=== PATIENT | female | born 1940 | race Caucasian/White ===

== ENCOUNTER 2023-05-27 12:47 | Outpatient (OUT) | payer MEDICARE, SELFPAY ==
[2023-05-27 13:39] LABS: Bilirubin Urine NEGATIVE (NEGATIVE); Blood Urine NEGATIVE (NEGATIVE); Clarity Urine CLEAR (CLEAR); Color Urine DK. YELLOW (YELLOW); Glucose Urine UA NEGATIVE (NEGATIVE); Ketones Urine NEGATIVE (NEGATIVE); Leukocyte Esterase Urine NEGATIVE (NEGATIVE); Nitrite Urine NEGATIVE (NEGATIVE); Protein Urine NEGATIVE (NEG/TRACE); Urobilinogen Urine 0.2 EU/dL (0.2-1.0)
[2023-05-27 13:40] LABS: Urine Microscopic Indicated NO
== END 2023-05-27 12:48 | disposition home or self-care (01) ==
LOC: LAB 12:49
PROVIDERS: PCP Internal Medicine; Visit Provider Internal Medicine
DX: R30.0 Dysuria (principal)
CPT/HCPCS: 81003

== ENCOUNTER 2023-06-14 01:24 | Emergency (ER) | payer MEDICARE, SELFPAY ==
[2023-06-14] VITALS (11 sets, daily range): BP systolic 136–180; BP diastolic 60–80; PULSE 52–61; RESP 13–19; TEMP 36.4; O2SAT 97–99; BMI 17.9
--- NOTE | 2023-06-14 01:39 | XR_ITS ---
The [place] [id number] Patient Name: MAYRA VICENTE MRN: [id number] date: 1940 Sex: F Assigned Patient Location: ER Current Patient Location: ED.MAIN Accession/Order Number: [id number] Exam Date: 06/14/2023 02:00 Report Date: 06/14/2023 02:33 At the request of: PRIMITIVO HOPKINS Procedure: XR chest 1V XR chest 1V 06/14/2023 2:00 AM EDT CLINICAL INDICATION: Chest pain COMPARISON: 01/19/2023 TECHNIQUE: Portable upright AP view of the chest. FINDINGS: There are no tubes or implants noted. The cardiomediastinal silhouette and pulmonary vasculature are within normal limits. No focal parenchymal opacities. No pneumothorax or pleural effusion. No displaced rib fractures. Osseous structures demonstrate degenerative changes. Soft tissues are grossly normal. XR/XR chest 1V IMPRESSION: No acute cardiopulmonary abnormality. Electronically authenticated by: ERIN VENTURA Date: 06/14/2023 02:33
--- NOTE | 2023-06-14 01:39 | ECG_ITS ---
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
--- NOTE | 2023-06-14 01:40 | ED_ITS ---
HPI - General Adult General Chief complaint: Chest Pain Stated complaint: hypertension Time Seen by Provider: 06/14/23 01:27 Source: patient Mode of arrival: Wheelchair History of Present Illness HPI narrative: Patient had elevated BP at home - 179/79 She presents complaining of pain across the anterior chest, diffuse weakness and pain to the top of her head that all began today. No recent injury or illness. No cough or cold symptoms. No shortness of breath No GI or symptoms. She said that she had a normal EGD in February and a normal heart cath in January with Dr Rosas She took Tylenol tonight around 930pm Related Data Allergies Allergy/AdvReac Type Severity Reaction Status Date / Time codeine Allergy Unknown Verified 06/14/23 01:36 PFSH [facility] Social History Smoking status: Never smoker Exam Narrative Exam Narrative: Nurses notes and vital signs reviewed and patient is not hypoxic. afebrile General: Well-appearing and in no apparent distress. Skin: Warm, dry, no pallor noted. No rash. Head: Normocephalic, atraumatic. Neck: Supple, non-tender. Eye: Pupils are equal, round and EOMI. No scleral icterus. Ears, Nose, Mouth, and Throat: TM are clear, no nasal mucosal hypertrophy. Oral mucosa is moist, no posterior oropharynx erythema, uvula is mid-line Cardiovascular: Regular Rate and Rhythm without murmur, gallop or rub. Respiratory: No accessory muscle use or respiratory distress. Lungs are clear to auscultation, no wheezing, rales or rhonchi Chest Wall: mild anterior chest wall tenderness Back: No midline thoracic or lumbar vertebral tenderness. No CVA tenderness Musculoskeletal: normal ROM, no calf or popliteal tenderness, no lower extremity edema/swelling GI: Abdomen is soft, non-distended. Normal bowel sounds. No masses appreciated. No tenderness to palpation. No rebound, guarding, or rigidity noted. Neurological: A&O x4. No cranial nerve dysfunction observed. No truncal ataxia. Moves all extremities. Sensation intact. Psychiatric: Cooperative and interactive. Normal mood and affect. Constitutional Vital Signs, click to edit/add: Last Vital Signs Temp 97.6 F 06/14/23 01:29 Pulse 58 L 06/14/23 01:29 Resp 16 06/14/23 01:29 BP 146/68 H 06/14/23 02:16 Pulse Ox 99 06/14/23 01:29 O2 Del Method Room Air 06/14/23 01:29 Course Vital Signs Vital signs: Vital Signs Temperature 97.6 F 06/14/23 01:29 Pulse Rate 58 L 06/14/23 01:29 Respiratory Rate 16 06/14/23 01:29 Blood Pressure 180/80 H 06/14/23 01:29 Pulse Oximetry 99 06/14/23 01:29 Oxygen Delivery Method Room Air 06/14/23 01:29 Temperature 97.6 F 06/14/23 01:29 Pulse Rate 58 L 06/14/23 01:29 Respiratory Rate 16 06/14/23 01:29 Blood Pressure 146/68 H 06/14/23 02:16 Pulse Oximetry 99 06/14/23 01:29 Oxygen Delivery Method Room Air 06/14/23 01:29 Medical Decision Making MDM Narrative Medical decision making narrative: Patient was placed on performance improvement analyst and EKG obtained. Blood drawn and sent for evaluation. chest x-ray was obtained. I ordered the patient to receive IV Vasotec but on recheck the patient's blood pressure had normalized, prior to the administration of the medication and therefore it was held. Testing in the emergency Department which included EKG,blood testing and chest x-ray did not reveal any acute abnormalities that justified admission. patient's symptoms had improved by the time I came back to recheck on her at 2:30 AM. She was discharged home with recommendation to return to the emergency Department if she has any new or worsening symptoms. She is instructed to take her medications as prescribed, including Tylenol for any headache. Lab Data Labs: Lab Results 06/14/23 Range/Units 01:45 WBC 5.9 (4.0-11.0) 10^3/uL RBC 4.86 (4.20-5.40) 10^6/uL Hgb 14.1 (12.0-16.0) g/dL Hct 42.0 (36.0-48.0) % MCV 86.4 (81.0-99.0) fL MCH 29.0 (26.7-34.0) pg MCHC 33.6 (29.9-35.2) g/dL RDW 12.8 (11.0-15.0) % Plt Count 182 (150-450) 10^3/uL MPV 9.0 L (9.5-13.5) fL Neut % (Auto) 43.8 (43.0-75.0) % Lymph % (Auto) 42.8 (20.5-60.0) % [place] % (Auto) 8.4 (1.7-12.0) % Eos % (Auto) 4.0 (0.9-7.0) % Baso % (Auto) 0.8 (0.2-2.0) % Neut # (Auto) 2.6 (1.4-6.5) 10^3/uL Lymph # (Auto) 2.5 (1.2-3.8) 10^3/uL [place] # (Auto) 0.5 (0.3-0.8) 10^3/uL Eos # (Auto) 0.2 (0.0-0.7) 10^3/uL Baso # (Auto) 0.1 (0.0-0.1) 10^3/uL Abs Immat Gran (auto) 0.01 (0.00-0.03) 10^3/uL Imm/Tot Granulo (auto) 0.2 (0.0-0.5) % Sodium 131 L (136-145) mmol/L Potassium 3.9 (3.5-5.1) mmol/L Chloride 97 L (98-107) mmol/L Carbon Dioxide 33.6 H (21.0-32.0) mmol/L Anion Gap 4.3 BUN 12.0 (7.0-18.0) mg/dL Creatinine 0.80 (0.55-1.02) mg/dL Est GFR ( Amer) >60 (>=60) Est GFR (Non-Af Amer) >60 (>=60) BUN/Creatinine Ratio 15.0 Glucose 111 H (74-106) mg/dL Calcium 9.9 (8.5-10.1) mg/dL Troponin I High Sens 4.4 (4.0-51.3) pg/mL NT-Pro-B Natriuret Pep 331.0 (<=1800.0) pg/mL ECG Data Interpretation: EKG interpretation: Emergency Department physician interpretation. Normal sinus rhythm at 54bpm. Normal axis, normal intervals and no ST segment elevation or depression. normal EKG, rate is bradycardic Discharge Plan Discharge Chief Complaint: Chest Pain Clinical Impression: Acute chest wall pain, Headache, HTN (hypertension) Patient Disposition: Home, Self-Care Time of Disposition Decision: 02:37 Instructions: Acute Headache (ED), Hypertension (ED), Chest Wall Pain (ED) Stand Alone Forms: Portal Instructions Referrals: NEAL BRENNER [Primary Care Provider] - 1 week
[2023-06-14 01:55] LABS: Basophils Absolute Auto 0.1 10^3/uL (0.0-0.1); Basophils Percent Auto 0.8 % (0.2-2.0); Eosinophils Absolute Auto 0.2 10^3/uL (0.0-0.7); Hemoglobin 14.1 g/dL (12.0-16.0); Immature Granulocytes Abs Auto 0.01 10^3/uL (0.00-0.03); Immature Granulocytes Pct Auto 0.2 % (0.0-0.5); Lymphocytes Absolute Auto 2.5 10^3/uL (1.2-3.8); Lymphocytes Percent Auto 42.8 % (20.5-60.0); Mean Corpuscular HGB Conc 33.6 g/dL (29.9-35.2); Mean Corpuscular Volume 86.4 fL (81.0-99.0); Monocytes Absolute Auto 0.5 10^3/uL (0.3-0.8); Monocytes Percent Auto 8.4 % (1.7-12.0); Neutrophils Absolute Auto 2.6 10^3/uL (1.4-6.5); Neutrophils Percent Auto 43.8 % (43.0-75.0); Platelet Count 182 10^3/uL (150-450); Red Blood Count 4.86 10^6/uL (4.20-5.40); Red Cell Distribution Width 12.8 % (11.0-15.0); White Blood Count 5.9 10^3/uL (4.0-11.0)
[2023-06-14 02:15] LABS: Anion Gap 4.3; Calcium 9.9 mg/dL (8.5-10.1); Carbon Dioxide 33.6 mmol/L (21.0-32.0); Chloride 97 mmol/L (98-107); Estimated GFR (African America >60 (>=60); Estimated GFR (Non-African Ame >60 (>=60); Glucose 111 mg/dL (74-106); Potassium 3.9 mmol/L (3.5-5.1); Sodium 131 mmol/L (136-145); Troponin I High Sensitivity 4.4 pg/mL (4.0-51.3)
== END 2023-06-14 02:49 | disposition home or self-care (01) ==
PROVIDERS: Emergency Provider Emergency Medicine; PCP Internal Medicine
DX: R07.89 Other chest pain (principal); I10 Essential (primary) hypertension; R51.9 Headache, unspecified
CPT/HCPCS: 36415; 71045; 80048; 83880; 84484; 85025; 93005; 99285

== ENCOUNTER 2023-07-27 12:18 | Emergency (ER) | payer MEDICARE, SELFPAY ==
[2023-07-27 12:27] VITALS: BP 150/75; PULSE 71; RESP 16; TEMP 36.7; O2SAT 100; BMI 16.9
[2023-07-27 13:16] LABS: Bilirubin Urine NEGATIVE (NEGATIVE); Blood Urine NEGATIVE (NEGATIVE); Clarity Urine CLEAR (CLEAR); Color Urine LT. YELLOW (YELLOW); Glucose Urine UA NEGATIVE (NEGATIVE); Ketones Urine NEGATIVE (NEGATIVE); Leukocyte Esterase Urine TRACE (NEGATIVE); Nitrite Urine NEGATIVE (NEGATIVE); Protein Urine NEGATIVE (NEG/TRACE); Urine Microscopic Indicated YES; Urobilinogen Urine 0.2 EU/dL (0.2-1.0)
--- NOTE | 2023-07-27 13:24 | PC.NURSE ---
No vaginal discharge noted, labia reddened and dry.
[2023-07-27 13:28] LABS: Bacteria Urine TRACE #/HPF (NONE SEEN); RBC Urine 0-2 #/HPF (0-2)
--- NOTE | 2023-07-27 13:28 | ED.FEMALEGU1 ---
HPI - Female Genitourinary General Chief complaint: Urogenital-Female Stated complaint: UTI SYMPTOMS Time Seen by Provider: 07/27/23 12:53 Source: patient and family Mode of arrival: walk-in History of Present Illness HPI Narrative: this patient is here for chronic burning in the vaginal area. Historically states she started having a problem in December. She was seen by nurse practitioner in family doctor placed on Chlortrimazole cream. 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 Many many years ago she had a total abdominal hysterectomy. She initially forgot, but then clarified that she does take a vaginal cream that she believes his estrogen product. She's never had any herpes infections in the past. She occasionally has urinary tract infections and is under the care of a urologist, they advised that she not take baths, rather referring to showering. She is not have a foul odor or drainage or discharge. She just has the burning in the labia area. Does not have any diarrhea or gastrointestinal symptomatology or issues in the past. She had a flareup of this burning sensation a couple weeks ago and now she is on her 4th tube of clotrimazole. 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 Problem focused examination. These suprapubic area appears normal with no pain tenderness guarding or masses. In the presence of a female nurse in inspection was conducted of the vulval area. There is no vesicularl type lesions, is no vaginal drainage discharge or odor. There is no evidence of cellulitis in the perineum. The perirectal area is normal. The labia really is not inflamed or swollen. There is some dryness of the vaginal mucosa. Cultures will be done as a precaution by don't see any obvious indication of a bacterial that or he stood or viral infections. Constitutional Vital Signs, click to edit/add: Last Vital Signs Temp 98.0 F 07/27/23 12:27 Pulse 71 07/27/23 12:27 Resp 16 07/27/23 12:27 BP 150/75 H 07/27/23 12:27 Pulse Ox 100 07/27/23 12:27 O2 Del Method Room Air 07/27/23 12:27 Course Vital Signs Vital signs: Vital Signs Temperature 98.0 F 07/27/23 12:27 Pulse Rate 71 07/27/23 12:27 Respiratory Rate 16 07/27/23 12:27 Blood Pressure 150/75 H 07/27/23 12:27 Pulse Oximetry 100 07/27/23 12:27 Oxygen Delivery Method Room Air 07/27/23 12:27 Temperature 98.0 F 07/27/23 12:27 Pulse Rate 71 07/27/23 12:27 Respiratory Rate 16 07/27/23 12:27 Blood Pressure 150/75 H 07/27/23 12:27 Pulse Oximetry 100 07/27/23 12:27 Oxygen Delivery Method Room Air 07/27/23 12:27 MDM - Female Genitourinary Lab Data Labs: Lab Results 07/27/23 Range/Units 12:40 Urine Color Lt. yellow (YELLOW) Urine Clarity Clear (CLEAR) Urine pH 7.0 (5.0-9.0) Ur Specific [place] 1.010 (1.005-1.025) Urine Protein Negative (NEG/TRACE) mg/dL Urine Glucose (UA) Negative (NEGATIVE) mg/dL Urine Ketones Negative (NEGATIVE) mg/dL Urine Occult Blood Negative (NEGATIVE) Urine Nitrite Negative (NEGATIVE) Urine Bilirubin Negative (NEGATIVE) Urine Urobilinogen 0.2 (0.2-1.0) EU/dL Ur Leukocyte Esterase Trace A (NEGATIVE) Discharge Plan Discharge Chief Complaint: Urogenital-Female Clinical Impression: Vaginal atrophy Patient Disposition: Home, Self-Care Time of Disposition Decision: 13:31 Additional Instructions: follow-up with Dr. Ashley this coming week for further CHANNELING MACHINE RUNNER evaluation and treatment recommendations. Continue the hormonal cream. May stop using clotrimazole. Stand Alone Forms: Portal Instructions Referrals: NEAL BRENNER [Primary Care Provider] - 1 week
[2023-07-27 13:29] LABS: Cast Seen? NONE SEEN #/LPF (NONE SEEN); Crystals Seen? None Seen #/HPF (None Seen); Mucus Urine NONE SEEN (NONE SEEN); Squamous Epithelial Cell Urine FEW #/LPF (NONE/RARE); Transitional Epi Cells Urine RARE #/LPF (NONE SEEN); Urine Culture Indicated NO
== END 2023-07-27 13:45 | disposition home or self-care (01) ==
PROVIDERS: Emergency Provider Emergency Medicine Emergency Medical Services; PCP Internal Medicine
DX: N95.2 Postmenopausal atrophic vaginitis (principal); Z90.710 Acquired absence of both cervix and uterus
CPT/HCPCS: 81001; 87070; 87210; 87491; 87591; 99284

== ENCOUNTER 2023-08-26 13:44 | Outpatient (OUT) | payer MEDICARE, SELFPAY ==
--- NOTE | 2023-08-26 13:46 | US_ITS ---
The [address] [address] Patient Name: MAYRA VICENTE MRN: [id number] date: 1940 Sex: F Assigned Patient Location: US Current Patient Location: US Accession/Order Number: [id number] Exam Date: 08/26/2023 13:57 Report Date: 08/26/2023 22:54 At the request of: KARO BAKER Procedure: US pelvis EXAM: US pelvis HISTORY: Pelvic Pain In Female R10.2 COMPARISON: None TECHNIQUE: Pelvic ultrasound performed FINDINGS: Uterus and ovaries are not seen and presumed removed. No correlate seen to explain vaginal pain. US/US pelvis IMPRESSION: No sonographic correlate seen to explain symptoms Electronically authenticated by: BOY SALCEDO Date: 08/26/2023 22:54
== END 2023-08-26 13:45 | disposition home or self-care (01) ==
LOC: US 13:44
PROVIDERS: PCP Internal Medicine; Visit Provider Physician Assistant
DX: R10.2 Pelvic and perineal pain (principal)
CPT/HCPCS: 76856

== ENCOUNTER 2023-09-02 13:47 | Emergency (ER) | payer MEDICARE, SELFPAY ==
[2023-09-02 13:51] VITALS: BP 156/70; PULSE 65; RESP 18; TEMP 36.7; O2SAT 98; BMI 16.3
--- NOTE | 2023-09-02 14:01 | CT_ITS ---
The [address] [address] Patient Name: MAYRA VICENTE MRN: [id number] date: 1940 Sex: F Assigned Patient Location: ER Current Patient Location: [facility] Accession/Order Number: [id number] Exam Date: 09/02/2023 14:17 Report Date: 09/02/2023 14:36 At the request of: CHAYO CRABTREE Procedure: CT head/brain wo con CT head/brain wo con, 09/02/2023 2:17 PM EST INDICATION: Head injury, headache COMPARISON: There is no appropriate prior study for comparison. TECHNIQUE: Axial CT images of the brain from skull base to vertex, including portions of the face and sinuses, were obtained without contrast . Multiplanar reformatted images were generated and reviewed as needed. Dose reduction techniques were achieved by using automated exposure control and/or adjustment of mA and/or kV according to patient size and/or use of iterative reconstruction technique. FINDINGS: The cerebral sulci as well as ventricular system are appropriate for age. There is no intracranial mass, mass effect, midline shift, intra or extra-axial fluid collection or hemorrhage. 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 Periventricular and centrum semiovale hypodensities are most likely consistent with microvascular ischemic changes. The visualized portions of orbits, mastoid air cells as well as paranasal sinuses are unremarkable. There is status post bilateral lens replacement. There is no suspicious osteolytic or osteoblastic lesion. CT/CT head/brain wo con IMPRESSION: No acute intracranial process is noted. Electronically authenticated by: CAIN ASCENCIO Date: 09/02/2023 14:36
[2023-09-02] MEDS: ACETAMINOPHEN 325 MG TABLET 650 MG PO (14:06)
[2023-09-02 14:25] VITALS: BP 119/47; PULSE 60; RESP 16; O2SAT 98
--- NOTE | 2023-09-02 14:29 | ED.HEATRA1 ---
HPI - Head Injury General Chief complaint: Head Injury Stated complaint: HEAD INJURY Time Seen by Provider: 09/02/23 13:53 Source: patient Mode of arrival: walk-in History of Present Illness HPI Narrative: Patient is an 83-year-old female who presents to the emergency department for the evaluation of headache for the last several days since she hit the side of her forehead on the she[employer]itch[employer] hook in her garden. She had no fall to the ground or other associated injuries. She has had a healing hematoma to the right side of the face. She complains of continued headache to the top of the head. She takes a baby aspirin daily. She called her doctor today who referred her to the emergency department for scan. She denies visual changes, vomiting, peripheral paresthesias, neck pain or back pain. Related Data Home Medications Medication Instructions Recorded Confirmed atorvastatin 10 mg tablet mg 09/02/23 buspirone 10 mg tablet mg 09/02/23 clobetasol 0.05 % topical ointment topical 09/02/23 doxycycline hyclate 100 mg capsule mg 09/02/23 fluconazole 150 mg tablet mg 09/02/23 lisinopril 30 mg tablet mg 09/02/23 sitagliptin phosphate 50 mg tablet mg 09/02/23 (Januvia) Allergies Allergy/AdvReac Type Severity Reaction Status Date / Time codeine Allergy Unknown Verified 06/14/23 01:36 Review of Systems ROS Constitutional Denies: fever or chills Eyes Denies: change in vision Ears, nose, mouth, and throat Denies: throat pain Cardiovascular Denies: chest pain Respiratory Denies: shortness of breath Gastrointestinal Denies: nausea or vomiting Musculoskeletal Denies: back pain or neck pain Integumentary/Breast Denies: rash Neurological Reports: headache Hematologic/Lymphatic Denies: easy bruising PFSH PFSH Social History Smoking status: Never smoker Exam Narrative Exam Narrative: Gen.: Awake, alert, in no distress Head: Normocephalic, well healing ecchymosis of the right forehead with no significant swelling, no injury to the nose or mouth ENT: Moist mucous membranes, C-spine nontender Respiratory: No respiratory distress Extremities: Moves extremities equally, no injuries noted Psych: Normal mood and affect Neuro: No focal neuro deficit Skin: Warm, dry, intact Constitutional Vital Signs, click to edit/add: Last Vital Signs Temp 98.0 F 09/02/23 13:51 Pulse 60 09/02/23 14:25 Resp 16 09/02/23 14:25 BP 119/47 L 09/02/23 14:25 Pulse Ox 98 09/02/23 14:25 O2 Del Method Room Air 09/02/23 13:51 Course Vital Signs Vital signs: Vital Signs Temperature 98.0 F 09/02/23 13:51 Pulse Rate 65 09/02/23 13:51 Respiratory Rate 18 09/02/23 13:51 Blood Pressure 156/70 H 09/02/23 13:51 Pulse Oximetry 98 09/02/23 13:51 Oxygen Delivery Method Room Air 09/02/23 13:51 Temperature 98.0 F 09/02/23 13:51 Pulse Rate 60 09/02/23 14:25 Respiratory Rate 16 09/02/23 14:25 Blood Pressure 119/47 L 09/02/23 14:25 Pulse Oximetry 98 09/02/23 14:25 Oxygen Delivery Method Room Air 09/02/23 13:51 MDM - Head Injury MDM Narrative Medical decision making narrative: Patient with an unremarkable exam, CT shows no evidence of acute cardiopulmonary changes. Patient was treated with Tylenol in the Emergency Room. She is instructed to continue Tylenol for home. Continue ice to area of hematoma. Follow-up with PCP. Return to the Emergency Room if symptoms change or worsen. Medical Records Attestation: I reviewed the patient's medical records. Imaging Data CT scan - head: Attestation: I have reviewed the pertinent imaging results. Radiologist's impression: Procedure: CT head/brain wo con CT head/brain wo con, 09/02/2023 2:17 PM EST INDICATION: Head injury, headache COMPARISON: There is no appropriate prior study for comparison. TECHNIQUE: Axial CT images of the brain from skull base to vertex, including portions of the face and sinuses, were obtained without contrast . Multiplanar reformatted images were generated and reviewed as needed. Dose reduction techniques were achieved by using automated exposure control and/or adjustment of mA and/or kV according to patient size and/or use of iterative reconstruction technique. FINDINGS: The cerebral sulci as well as ventricular system are appropriate for age. There is no intracranial mass, mass effect, midline shift, intra or extra-axial fluid collection or hemorrhage. 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 Periventricular and centrum semiovale hypodensities are most likely consistent with microvascular ischemic changes. The visualized portions of orbits, mastoid air cells as well as paranasal sinuses are unremarkable. There is status post bilateral lens replacement. There is no suspicious osteolytic or osteoblastic lesion. IMPRESSION: No acute intracranial process is noted. Electronically authenticated by: CAIN ASCENCIO Date: 09/02/2023 14:36 Discharge Plan Discharge Chief Complaint: Head Injury Clinical Impression: Closed head injury, Headache Patient Disposition: Home, Self-Care Time of Disposition Decision: 14:40 Condition: Good Prescriptions / Home Meds: No Action doxycycline hyclate 100 mg capsule atorvastatin 10 mg tablet fluconazole 150 mg tablet buspirone 10 mg tablet lisinopril 30 mg tablet clobetasol 0.05 % ointment TOPICAL Januvia 50 mg tablet Instructions: Head Injury (ED), General Headache (ED) Stand Alone Forms: Portal Instructions Referrals: NEAL BRENNER [Primary Care Provider] - 1 week Discharge Date/Time: 09/02/23 14:47
--- OUTSIDE RECORDS SUMMARY | 2023-10-01 21:43 | XMS_ITS | CCD ---
Author Name Unknown Address [address] [place] [address] Organization [facility] Care Team Providers Care Compressed Gases Tester Name Role Phone Benny Vick Unavailable Unavailable Unavailable Nitza Cerrato Unavailable Alexia Dejesus Unavailable Unavailable Unavailable Arely Dasilva Unavailable MD Benny Vcik Primary Care Provider DO Mario Fontana Emergency Provider ERICA Dasilva Attending Provider DO Zina Shrestha Emergency Provider Ms. Avelino Berry Attending Unavailable Dr. Benny Vick Steve Primary Care MD Benny Grover Primary Care Provider DO Mario Fontana Emergency Provider NON STAFF Primary Care Provider DO Gregg Kennedy Emergency Provider MD Nj Pantoja Admit Provider MD Nj Castellanos Attending Provider [phone] DO Sarah Quevedo Attending Provider MD Jordy Berry Emergency Provider [phone] UNIQUE Dejesus Attending Provider [phone] NON STAFF Primary Care Provider DO Gregg Kennedy Emergency Provider MD Nj Pantoja Admit Provider DO Sarah Quevedo Attending Provider [phone] MD Jordy Berry Emergency Provider UNIQUE Dejesus Attending Provider DO Maico Carranza Emergency Provider UNIQUE Dejesus Primary Care Provider NON STAFF Primary Care Provider Unavailabl e UNIQUE Dejesus Attending Provider [phone] ERICA Dasilva Attending Provider Janelle Hernandez Unavailable DO Maico Carranza Emergency Provider Unavailab DO Zina Ross Emergency Provider MD Jordy Berry Emergency Provider MD Mark Win Attending Provider UNIQUE Dejesus Attending Provider UNIQUE Dejesus Primary Care Provider ERICA Dasilva Attending Provider DO Zina Shrestha Emergency Provider MD Jordy Berry Emergency Provider [phone] MD Mark Win Attending Provider [phone] Mark Win Unavailable Guy Hudson Unavailable Alexia Dejesus Unavailable NONE, XXXX Primary Care Physician Unavailab NIKO Fox-Emmett Hale Primary Care Provider MD Rory Rosas Attending Provider Ms. Alexia Dejesus Primary Care Un available Dr. Rory Rosas II Attending Unavailable Avelino Berry Referring Unavailable Nava, Dr. Benny Wilson Primary Care Unavai Avelino Villegas Attending Unavailable Avelino Berry Referring Unavailable Naderemt, Dr. Benny Wilson Primary Care Avelino Castrejon Attending Unavailable Jamal, Avelino Attending Unavailable Avelino Berry Referring Unavailable Naderer, Dr. Benny Wilson Primary Care Divine Dejesus, NIKO-Emmett Hale Primary Care Provider SHAIKH Jennifer GALLARDO Admitting Unavailable NADERER, DR BENNY Ivey Primary Care Unavailable SHAIKH Jennifer GALLARDO Attending Unavailable SHAIKH Jennifer GALLARDO Consulting Unavailable OLEG, ALEXIA Consulting Unavailable NADERER, DR BENNY Ivey Primary Care Unavailable OLEG, ALEXIA Admitting Unavailable OLEG, ALEXIA Attending Unavailable MISC, DR SANDOVAL Admitting Unavailable QUIRINO, DR Ghulam Garay Consulting Unavailable MISC, DR SANDOVAL Attending Unavailable OLEG, ALEXIA Primary Care Unavailable PAY ., DR CASTRO Admitting Unavailable OLEG, ALEXIA Primary Care Unavailable PAY ., DR CASTRO Attending Unavailable PAY ., DR CASTRO Consulting Unavailable GRECHNY ., EDGARDO DOMINGO Consulting UnavailALDO Palm Consulting Unavailable DIAB ., MAYTE Admitting Unavailable MISC, DR SANDOVAL Consulting Unavailable DIAB ., MAYTE Attending Unavailable OLEG, ALEXIA Primary Care Unavailable BONNY JENKINS Consulting Unavailable SARAH BROWN Consulting Unavailable DIAB ., MAYTE Consulting Unavailable UNLU, FERNANDO Consulting Unavailable JAMAL, DR NISHA Garay Admitting Unavailable JAMAL, DR NISHA Garay Attending Unavailable JAMAL, DR NISHA Garay Consulting Unavailable NAVA, DR BENNY Ivey Primary Care Unavailable ELOISE MORRIS Consulting Unavailable HAY ., DR LANGFORD Admitting Unavailable OLEG, ALEXIA Primary Care Unavailable HAY ., DR LANGFORD Attending Unavailable HAY ., DR LANGFORD Consulting Unavailable AHDOGENA ALVES Consulting Unavailable SOOSEJAL Consulting Unavailable OLEG, ALEXIA Primary Care Unavailable HAY ., DR LANGFORD Admitting Unavailable HAY ., DR LANGFORD Attending Unavailable HAY ., DR LANGFORD Consulting Unavailable BENY, BULMARO Consulting Unavailable ZIEBER, DR CAMRYN Garay Consulting Unavailable NADERER, DR BENNY Ivey Attending Unavailable NADERER, DR BENNY Ivey Primary Care Unavailable NADERER, DR BENNY Ivey Admitting Unavailable NADERER, DR BENNY Ivey Consulting Unavailable NADERER, DR BENNY Ivey Attending Unavailable NADERER, DR BENNY Ivey Consulting Unavailable NADERER, DR BENNY Ivey Primary Care Unavailable NADERER, DR BENNY Ivey Admitting Unavailable OLEG, ALEXIA Consulting Unavailable OLEG, ALEXIA Primary Care Unavailable OLEG, ALEXIA Admitting Unavailable ALEXIA DEJESUS Attending Unavailable ALEXIA DEJESUS Attending Unavailable OLEG, ALEXIA Consulting Unavailable OLEG, ALEXIA Primary Care Unavailable OLEG, ALEXIA Admitting Unavailable DR Ghulam WIN Consulting Unavailable OLEG, ALEXIA Primary Care Unavailable [facility], DR SANDOVAL Attending Unavailable [facility], DR SANDOVAL Admitting Unavailable ROBERT Moreno Primary Care Provider [phone] DO Ricki Sam Emergency Provider [phone] OLEG, [place] Arreola Attending Unavail able OLEG, DIRECTOR OF QUANTITATIVE RESEARCH ALEXIA Arreola Admitting Unavail able OLEG, DIRECTOR OF QUANTITATIVE RESEARCH ALEXIA Arreola Attending Unavail able OLEG, DIRECTOR OF QUANTITATIVE RESEARCH ALEXIA Arreola Admitting Unavail able OLEG, DIRECTOR OF QUANTITATIVE RESEARCH ALEXIA Arreola Attending Unavail able OLEG, [place] Arreola Admitting Unavail able OLEG, DIRECTOR OF QUANTITATIVE RESEARCH ALEXIA Arreola Attending Unavail able OLEG, DIRECTOR OF QUANTITATIVE RESEARCH ALEXIA Arreola Admitting Unavail able Zina DAVIS Attending Unavailable Zina DAVIS Attending Unavailable Zina DAVIS Attending Unavailable Oleg, Alexia Primary Care Unavailable Jordy Berry Admitting Unavailable Jordy Berry Attending Unavailable Ricki Sam Admitting Unavailable Ricki Sam Attending Unavailable Wilian Moreno Primary Care Unavailable Maico Carranza Attending Unavailable NON [facility] Primary Care Unavailable Maico Carranza Admitting Unavailable Oleg, Alexia Primary Care Unavailable Zina Shrestha Admitting Unavailable Zina Shrestha Attending Unavailable Oleg, Alexia Primary Care Unavailable Alexia Dejesus Attending Unavailable Alexia Dejesus Admitting Unavailable Oleg, Alexia Primary Care Unavailable Mark Win Admitting Unavailabl e Mark Win Attending Unavailabl e Oleg, Alexia Primary Care Unavailable Alexia Dejesus Attending Unavailable Alexia Dejesus Admitting Unavailable Alexia Dejesus Attending Unavailable Alexia Dejesus Admitting Unavailable Arely Dasilva Admitting Unavailable Arely Dasilva Attending Unavailable Oleg, Alexia Primary Care Unavailable Oleg, Alexia Primary Care Unavailable Rory Rosas Admitting Unavail able Rory Rosas Attending Unavail able Oleg, Alexia Primary Care Unavailable Rory Rosas Admitting Unavail able Rory Rosas Attending Unavail Alexia Rod Primary Care Unavailable Mark Win Admitting UnavailMark Estrada Attending UnavailELOISE Manzano Attending Unavailable Allergies Allergy Classification Reported Allergen(s) Allergy Type Date of Onset Reaction(s) Facility (20 sources) Morphine; Translations: [morphine] Drug Allergy 2 Hypertension, elevated bp, Unknown Reaction [facility] (20 sources) Mold Extract Drug Allergy Unknown [facility] Other (20 sources) NITROFURANTOIN, MACROCRYSTALS / Nitrofurantoin, Monohydrate Drug Allergy major stomach issues [facility] Other (4 sources) Acetaminophen / HYDROcodone; Translations: [acetaminophen-hy drocodone] Drug Allergy Asthenia (finding) [facility] (4 sources) diazePAM; Translations: [diazepam] Drug Allergy Unknown Reaction [facility] (1 source) Codeine Drug Allergy [facility] (1 source) diazePAM Drug Allergy [facility] (1 source) Doxycycline Drug Allergy [facility] (1 source) Iodine Drug Allergy [facility] (1 source) Morphine Drug Allergy [facility] (1 source) Propoxyphene Drug Allergy [facility] (1 source) Morphine Drug Allergy 3 [facility] Medications Current Medications Medication Drug Class(es) Dates Sig (Normalized) Sig (Original) Ascorbic Acid (20 sources) Vitamin C Vitamin C [facility] Vitamin C Active Aspir-81 (20 sources) Aspir-81 Active aspirin 81 mg delayed release oral tablet (20 sources) Platelet Aggregation Inhibitor, Nonsteroidal Anti-inflammatory Drug Start: 05-08-2019 take 81 mg by mouth once daily Aspirin Active 81 MG PO Daily May 07, 2019 11:00pm budesonide 3 mg delayed release oral capsule (7 sources) Corticosteroid Start: 02-15-2023 take 3 capsules by mouth every twenty-four hours Budesonide 3 MG 3 capsules Orally Once a day for 30 days February, Active busPIRone (20 sources) Start: 07-26-2022 busPIRone Oral, BID, Refills(s) 0 Start Date: 07/26/22 Status: Ordered Start: 07-14-2022 take 10 mg by mouth once daily Buspirone Active 10 MG PO Daily July 13, 2022 11:00pm Start: 07-09-2022 take 1 tablet by gucci th twice daily busPIRone HCl 5 MG 1 tablet Orally BID w/ Food for 30 day(s) Jun, Active Start: 07-09-2022 take 5 mg by mouth once daily Buspirone Active 5 MG PO Daily July 14, 2022 12:00am take 1 tablet by gucci th twice daily busPIRone HCl - 10 MG Oral Tablet Take 1 tablet twice daily Quantity: 0 Refills: 0 Ordered: 21-Jan-2023 DO Active Centrum Silver (20 sources) Start: 07-26-2022 Centrum Silver Oral, Daily, Refill(s) 0 Start Date: 07/26/22 Status: Ordered Centrum Silver A ctive cephalexin 500 mg oral tablet (3 sources) Cephalosporin Antibacterial Start: 05-13-2022 take 1 tablet by mouth every twelve hours Cephalexin 500 MG 1 tablet Orally every 12 hrs for 10 day(s) Apr, Active Start: 01-07-2022 Cephalexin 500 MG Oral Capsule Quantity: 21 Refills: 0 Ordered: 07-Jan-2022 DO Start : 07-Jan-2022 Complete Start: 01-07-2022 take 1 capsule by [facility] every eight hours Cephalexin 500 MG 1 capsule Orally three times a day for 7 days Dec, Active cholecalciferol 0.025 mg oral tablet (12 sources) Vitamin D Start: 01-30-2023 take 1 tablet by mouth once daily Cholecalciferol (Vitamin D3) (Vitamin D3) 25 mcg (1,000 unit) Tablet Active 25 MCG PO Daily January 29, 2023 11:00pm take 1 tablet by mouth once lary y Vitamin D3 50 MCG (1999 UT) Oral Tablet Take 1 tablet daily Quantity: 0 Refills: 0 Ordered: 19-Jul-2021 DO Active Clotrimazole (20 sources) Azole Antifungal Start: 10-08-2022 doxepin hydrochloride 10 mg/ml oral solution (1 source) Tricyclic Antidepressant Start: 03-29-2023 take 0.5 mL by mouth once daily at bedtime Doxepin HCl 10 MG/ML 1/2 ML at HS Orally Once a day for 30 days stop martazapine Mar, Active estradiol 0.1 mg/ml vaginal cream (20 sources) Estrogen Start: 02-01-2020 estradiol 0.1 mg/g vaginal cream 1 gram, Vaginal, MonWedFri, # 42.5 gram, Refills(s) 3, Pharmacy: [facility] Start Date: 02/01/20 Status: Ordered Estradiol Active estrogens, conjugated (nursing home) 0.625 mg/ml vaginal cream (6 sources) Estrogen Start: 01-30-2023 Conjugated Est rogens (Premarin) 0.625 mg/gram cream Active 1 APPLIC VAGINAL 3 Times a week January 29, 2023 11:00pm m,w,f Start: 10-30-2022 Premarin Vagin al 0.625 mg/g cream with applicator 1 gm, Vaginal, MonWedFri, 42.5 gm, Refill(s) 11, [facility], 160, cm, 10/30/22 15:41:00 EST, Height/Length Dosing, 56, kg, 10/30/22 15:41:00 EST, Weight Dosing Start Date: 10/30/22 Status: Ordered famotidine 20 mg oral tablet (20 sources) Histamine-2 Receptor Antagonist Start: 07-26-2022 famotidine Refills(s ) 0 Start Date: 07/26/22 Status: Ordered Start: 07-19-2022 take 20 mg by mouth once daily Famotidine Active 20 MG PO Daily December 12, 2022 12:00am ferrous sulfate 325 mg oral tablet (20 sources) Start: 12-12-2022 take 325 mg by mouth twice daily Ferrous Sulfate Active 325 MG PO Twice daily December 12, 2022 12:00am Start: 07-26-2022 ferrous sulfat e Oral, Refills(s) 0 Start Date: 07/26/22 Status: Ordered Start: 07-16-2022 take 1 tablet by gucci th every twelve hours take 1 tablet by gucci th twice daily Ferrous Sulfate 325 (65 Fe) MG 1 tablet Orally bid for 30 day(s) Active FreeStyle Brett 2 [place] - (20 sources) Start: 11-29-2022 FreeStyle Brett 2 [place] - as directed SQ as directed for 30 day(s) Nov, Active FreeStyle Brett 2 Sensor - (20 sources) Start: 11-29-2022 FreeStyle Brett 2 Sensor - as directed SQ as directed for 28 days Nov, Active lactobacillus acidophilus [id number] unt oral capsule (4 sources) Start: 01-30-2023 take 10 capsules by mouth once daily Lactobacillus Acidophilus (Probiotic) 10 billion cell Capsule Active 1 CELL PO Daily January 29, 2023 11:00pm lactulose 667 mg/ml oral solution (1 source) Osmotic Laxative Start: 04-04-2023 take 15 mL by mouth once daily as needed Lactulose 20 GM/30ML 15 mL as needed Orally Once a day for 30 days Mar, Active lisinopril 10 mg oral tablet (20 sources) Angiotensin Converting Enzyme Inhibitor Start: 01-30-2023 take 30 mg by mouth once daily Lisinopril Active 30 MG PO Daily January 30, 2023 8:31am Start: 07-26-2022 lisinopril Ora l, Daily, Refills(s) 0 Start Date: 07/26/22 Status: Ordered Start: 07-14-2022 End: 01-30-2023 take 10 mg by mouth once daily Lisinopril Discontinued 10 MG PO Daily July 13, 2022 11:00pm January 30, 2023 8:31am Start: 05-08-2019 End: 07-14-2022 take 2.5 mg by mouth once daily Lisinopril Discontinue d 2.5 MG PO Daily May 07, 2019 11:00pm July 14, 2022 12:00am take 1 tablet by gucci th at bedtime Lisinopril 30 MG Oral Tablet TAKE 1 TABLET Bedtime Quantity: 0 Refills: 0 Ordered: 21-Jan-2023 DO Active take 1 tablet by gucci th once daily Lisinopril 5 MG Oral Tablet TAKE 1 TABLET DAILY. Quantity: 0 Refills: 0 Ordered: 19-Jul-2021 DO Active Magnesium (9 sources) Start: 12-12-2022 take 200 mg by mouth once daily Magnesium Active 200 MG PO Daily December 12, 2022 1:00am Start: 12-12-2022 take 200 mg by mouth once lary y Magnesium Active 200 MG PO Daily December 12, 2022 12:00am take 1 tablet by gucci th once daily Magnesium 200 MG Oral Tablet TAKE 1 TABLET DAILY DIRECTED. Quantity: 0 Refills: 0 Ordered: 21-Jan-2023 DO Active magnesium amino acid chelate (3 sources) Start: 07-26-2022 magnesium gorman o acids chelate Oral, Refills(s) 0 Start Date: 07/26/22 Status: Ordered magnesium glycinate 100 mg oral tablet (20 sources) Start: 07-16-2022 take 1 capsule by mouth once daily mesalamine 1200 mg delayed release oral tablet (2 sources) Aminosalicylate Start: 02-12-2023 take 4 tablets by mouth once daily Mesalamine (Lialda) 1.2 gram tablet,delayed release (DR/EC) Active 4.8 GM PO Daily 120 56 February 11, 2023 11:00pm metFORMIN hydrochloride 500 mg oral tablet (20 sources) Biguanide Start: 05-08-2019 take 500 mg by mouth once daily Metformin Active 500 MG PO Daily May 07, 2019 11:00pm Start: 05-08-2019 take 1000 mg by mouth once ly Metformin Active 1000 MG PO Daily May 08, 2019 12:00am metFORMIN HCl Ac tive metFORMIN HCl No t-Taking mirtazapine 15 mg oral tablet (3 sources) Start: 03-12-2023 take 1 tablet by gucci th every twenty-four hours Mirtazapine 15 MG 1 tablet at bedtime Orally Once a day for 30 days February, Active Multivitamin-Minerals- Lutein (3 sources) Start: 01-30-2023 take 1 tablet by gucci th once daily Multivitamin-Minerals -Lutein Active 1 TAB PO Daily January 29, 2023 11:00pm Start: 01-30-2023 take 1 tablet by gucci th once daily Ygymzfdjdrxf-Hfjytlpk-Idskkt Active 1 TA B PO Daily January 30, 2023 12:00am Jhkwwcrsiygk-Vwtdmpxr-Loethp (Centrum Silver) Tablet (1 source) Start: 01-30-2023 take 1 tablet by mouth once daily Cqmmhkafwrlh-Ynveuzyp-Oeldpg (Centrum Silver) Tablet Active 1 TAB PO Daily January 30, 2023 12:00am nitrofurantoin, macrocrystal s 25 mg / nitrofurantoin, monohydrate 75 mg oral capsule (20 sources) Nitrofur an Antibact erial Start: 10-28-2022 take 1 capsule by mouth every twelve hours Rich Colon [facility] (13 sources) Rich Colon H ealth Active sertraline 25 mg oral tablet (20 sources) Serotoni n Reuptake Inhibito r Start: 12-12-2022 take 75 mg by mouth once daily Sertraline Active 75 MG PO Daily December 12, 2022 12:00am Start: 07-16-2022 take 1 mg by mouth once daily sertraline 25 mg Tab mg tab(s), Oral, Daily, Refills(s) 0 Start Date: 07/26/22 Status: Ordered take 1 tablet by gucci th at bedtime Sertraline HCl - 50 MG Oral Tablet TAKE 1 TABLET Bedtime Quantity: 0 Refills: 0 Ordered: 21-Jan-2023 DO Active simvastatin 40 mg oral tablet (20 sources) HMG-CoA Reductase Inhibitor Start: 07-26-2022 simvastatin Oral, Refills(s) 0 Start Date: 07/26/22 Status: Ordered Start: 05-08-2019 take 40 mg by mouth once daily at bedtime Simvastatin Active 40 MG PO Daily at bedtime February 11, 2023 11:00pm Start: 05-08-2019 End: 12-12-2022 take 20 mg by mouth once daily at bedtime Simvastatin Discontinued 20 MG PO Daily at bedtime May 07, 2019 11:00pm December 12, 2022 3:21pm Simvastatin Acti ve SITagliptin 100 mg oral tablet (1 source) Dipeptidyl Peptidase 4 Inhibitor take 1 tablet by mouth every twenty-four hours Januvia 100 MG 1 tablet Orally Once a day Active Vitamin D3 (20 sources) Start: Vitamin D3 Refills(s) 0 Start Date: 07/26/22 Status: Ordered Vitamin D3 Activ e Completed/Discontinued Medications Medication Drug Class(es) Dates Sig (Normalized) Sig (Original) acetaminophen 325 mg / HYDROcodone bitartrate 5 mg oral tablet (11 sources) Opioid Agonist Start: 09-21-2022 End: 12-12-2022 take 1 tablet by mouth three times daily Hydrocodone-Aceta minophen Discontinued 1 TAB PO Three times daily 7 September 21, 2022 December 12, 2022 3:21pm Alendronate (2 sources) Bisphosphonate Alendronate Sodium Not-Taking amLODIPine 2.5 mg oral tablet (20 sources) Dihydropyridine Calcium Channel Areli Start: 07-14-2022 End: 12-12-2022 take 2.5 mg by mouth once daily Amlodipine Discontinued 2.5 MG PO Daily July 13, 2022 11:00pm December 12, 2022 3:21pm Start: 05-16-2022 take 1 tablet by gucci th once daily amLODIPine Besylate 2.5 MG Oral Tablet TAKE 1 TABLET DAILY. Quantity: 90 Refills: 3 Ordered: 16-May-2022 Cecilio eBrry RACE CAR DRIVER-DIRECTOR OF QUANTITATIVE RESEARCHAvelino Start : 16-May-2022 Active New start take 0.5 tablet by m outh once daily amoxicillin 875 mg / clavulanate 125 mg oral tablet (11 sources) Penicillin-class Antibacterial Start: 09-21-2022 End: 12-12-2022 take 1 tablet by mouth twice daily Amoxicillin-Pot Clavulanate Discontinued 1 TAB PO Twice daily 02 08September 21, 2022 12:00am December 12, 2022 3:21pm atorvastatin 10 mg oral tablet (7 sources) HMG-CoA Reductase Inhibitor Start: 12-12-2022 End: 02-12-2023 take 40 mg by mouth once daily Atorvastatin Discontinued 40 MG PO Daily December 12, 2022 12:00am February 12, 2023 6:58am Start: 12-12-2022 take 10 mg by mouth once daily Atorvastatin Active 10 MG PO Daily December 12, 2022 1:00am bifidobacterium animalis [id number] unt / lactobacillus acidophilus [id number] unt oral capsule (2 sources) Probiotic CAPS U SE DIRECTED. Quantity: 0 Refills: 0 Ordered: 21-Jan-2023 DO Active ciprofloxacin 500 mg oral tablet (18 sources) Quinolone Antimicrobial Start: 019 End: take 500 mg by mouth twice daily Ciprofloxacin Hcl Discontinued 500 MG PO Twice daily May 07, 2019 11:00pm April 14, 2022 4:22pm dicyclomine hydrochloride 10 mg oral capsule (2 sources) Anticholinergic Start: take 1 capsule by mouth every twelve hours Dicyclomine HCl 10 MG 1 capsules Orally bid for 30 day(s) Mar, Not-Taking docusate sodium 100 mg oral capsule (11 sources) Start: End: take 1 capsule by mouth once daily Docusate Sodium (Colace) 100 mg capsule Discontinued 100 MG PO Daily September 21, 2022 12:00am December 12, 2022 3:21pm doxycycline hyclate 100 mg oral capsule (14 sources) Tetracycline-class Drug Start: take 1 capsule by mouth once daily doxycycline hyclate 100 mg Cap 100 mg = 1 cap(s), Oral, Daily, Take 1 pill the day before the procedure and 1 pill after the procedure, # 2 cap(s), Refills(s) 0, Pharmacy: [id number], 160, cm, 07/26/22 13:31:00 EDT, Height/Length Dosing, 56, kg, 07/26/22 13:31:00 EDT, We... Start Date: 10/26/22 Status: Ordered Start: 07-16-2022 take 1 capsule by mo ut every twelve hours Doxycycline Monohydrate 100 MG 1 capsule Orally every 12 hrs for 7 days Jul, Active Start: 11-09-2021 Doxycycline Hy clate 100 MG Oral Capsule Quantity: 2 Refills: 0 Ordered: 09-Nov-2021 DO Start : 09-Nov-2021 Complete Start: 10-17-2021 Doxycycline Hy clate 100 MG Oral Tablet Quantity: 14 Refills: 0 Ordered: 17-Oct-2021 DO Start : 17-Oct-2021 Complete fluticasone propionate 0.05 mg/actuat metered dose nasal spray (1 source) Corticosteroid Start: 10-18-2021 Fluticasone Propionate 50 MCG/ACT Nasal Suspension Quantity: 16 Refills: 0 Ordered: 18-Oct-2021 DO Start : 18-Oct-2021 Complete gabapentin 300 mg oral capsule (8 sources) Anti-epileptic Agent take 1 capsule by mouth at bedtime Gabapentin 300 MG Oral Capsule TAKE 1 CAPSULE Bedtime Quantity: 0 Refills: 0 Ordered: 19-Jul-2021 DO Active Gabapentin Activ e hydroCHLOROthiazide 25 mg oral tablet (20 sources) Thiazide Diuretic Start: 06-22-2022 End: 07-14-2022 take 25 mg by mouth once daily Hydrochlorothiazide Discontinued 25 MG PO Daily July 13, 2022 11:00pm July 14, 2022 11:59am meclizine hydrochloride 25 mg oral tablet (2 sources) Antiemetic take 1 tablet by mouth four times daily as needed for dizziness Meclizine HCl - 25 MG Oral Tablet TAKE 1 TABLET 4 TIMES DAILY NEEDED FOR DIZZINESS. Quantity: 0 Refills: 0 Ordered: 19-Jul-2021 DO Active metroNIDAZOLE 500 mg oral tablet (18 sources) Nitroimidazole Antimicrobial Start: 05-08-2019 End: 04-14-2022 take 500 mg by mouth four times daily Metronidazole Discontinued 500 MG PO Four times daily May 07, 2019 11:00pm April 14, 2022 4:22pm Multi Vitamin TABS (6 sources) Multi Vitamin TA BS TAKE 1 TABLET DAILY. Quantity: 0 Refills: 0 Ordered: 18-Apr-2022 DO Active Sbnvetnh-Ysc-Sboq-Fa-L utein (Centrum Silver Women) 8 mg iron-400 mcg-300 mcg Tablet (6 sources) Start: 12-12-2022 End: 01-30-2023 take 1 tablet by mouth once daily Asovbrwb-Vsm-Rvjg-Fa- Lutein (Centrum Silver Women) 8 mg iron-400 mcg-300 mcg Tablet Discontinued 1 TAB PO Daily December 12, 2022 1:00am January 30, 2023 9:26am Start: 12-12-2022 take 1 tablet by gucci th once daily Gehpmuev-Ljy-Djpt-Fa-Lutein (Centrum Lilia ester Women) 8 mg iron-400 mcg-300 mcg Tablet Active 1 TAB PO Daily December 12, 2022 1:00am Start: 12-12-2022 take 1 tablet by gucci th once daily Nllwpopg-Pwd-Wzjf-Fa-Lutein (Centrum Lilia ester Women) 8 mg iron-400 mcg-300 mcg Tablet Active 1 TAB PO Daily December 12, 2022 12:00am Ubcppoii-Nbd-Afqp-Fa-Vit K-Lut (Centrum Silver Women) 8 mg iron-400 mcg-300 mcg Tablet (1 source) Start: 12-12-2022 End: 01-30-2023 take 1 tablet by mouth once daily Cngqcwvs-Fvz-Tjhk-Fa-Vit K-Lut (Centrum Silver Women) 8 mg iron-400 mcg-300 mcg Tablet Discontinued 1 TAB PO Daily December 12, 2022 12:00am January 30, 2023 8:26am nitroglycerin 0.4 mg sublingual tablet (2 sources) Nitrate Vasodilator Start: 01-21-2023 Nitroglycerin 0.4 MG Sublingual Tablet Sublingual DISSOLVE 1 TABLET UNDER THE TONGUE NEEDED FOR CHEST PAIN. Quantity: 25 Refills: 3 Ordered: 21-Jan-2023 Avelino Resendiz Start : 21-Jan-2023 Active ondansetron 4 mg disintegrating oral tablet (20 sources) Serotonin-3 Receptor Antagonist Start: 09-21-2022 End: 12-12-2022 take 4 mg by mouth every eight hours Ondansetron Discontinued 4 MG PO Q8H 6 September 21, 2022 12:00am December 12, 2022 3:21pm Start: 07-24-2022 take 1 tablet by mouth every e ight hours as needed Start: 07-19-2022 take 1 tablet by mouth once da jerardo as needed pantoprazole 40 mg delayed release oral tablet (20 sources) Proton Pump Inhibitor Start: 05-08-2019 End: 04-14-2022 take 40 mg by mouth twice daily Pantoprazole Discontinued 40 MG PO Twice daily May 07, 2019 11:00pm April 14, 2022 4:22pm polyethylene glycol 3350 [id number] mg powder for oral solution (11 sources) Osmotic Laxative Start: 09-21-2022 End: 12-12-2022 Polyethylene Glycol 3350 (Miralax) 17 gram powder in packet Discontinued 17 GM PO Daily 14 September 21, 2022 12:00am December 12, 2022 3:21pm Tylenol Extra Strength TABS (6 sources) Tylenol Extra Strength TABS TAKE 1 TABLET EVERY 4 TO 6 HOURS NEEDED. Quantity: 0 Refills: 0 Ordered: 18-Apr-2022 DO Active Problems Active Problems Problem Classification Problem Date Documented Da te Episodic/Chronic Abdominal pain (20 sources) Abdominal pain; Translations: [Unspecified abdominal pain] Onset: 2 Episodic Anal and rectal conditions (20 sources) Anal fissure; Translations: [Anal fissure, unspecified] Episodic Anxiety disorders (20 sources) Generalized anxiety disorder; Translations: [Generalized anxiety disorder] Chronic Conditions associated with dizziness or vertigo (20 sources) Dizziness; Translations: [Dizziness and giddiness] Onset: 3 04-14-2022 Episodic Coronary atherosclerosis and other heart disease (1 source) Atherosclerotic heart disease of [place] coronary artery without angina pectoris; Translations: [ASHD BOIS FORTE CA W/O ANGINA PECTORIS] Onset: 2 Chronic Deficiency and other anemia (20 sources) Iron deficiency anemia; Translations: [Iron deficiency anemia, unspecified] Episodic Deficiency and other anemia (2 sources) Iron deficiency anemia, unspecified Episodic Diabetes mellitus with complications (20 sources) Type 2 diabetes mellitus; Translations: [Type 2 diabetes mellitus with hypoglycemia without coma] Onset: 3 Chronic Diabetes mellitus without complication (20 sources) Diabetes mellitus; Translations: [Diabetes mellitus without mention of complication, type II or unspecified type, not stated as uncontrolled] Onset: 3 Chronic Diabetes mellitus without complication (8 sources) Acute hyperglycemia; Translations: [Hyperglycemia, unspecified] Onset: 2 11-14-2022 Episodic Disorders of lipid metabolism (9 sources) Hyperlipidemia; Translations: [Other and unspecified hyperlipidemia] Onset: 3 Chronic Diverticulosis and diverticulitis (20 sources) Diverticular disease of colon; Translations: [Diverticulosis of intestine, part unspecified, without perforation or abscess without bleeding] Onset: 2 09-21-2022 Chronic Esophageal disorders (20 sources) Gastroesophageal reflux disease; Translations: [Esophageal reflux] Chronic Essential hypertension (20 sources) Benign essential hypertension; Translations: [Benign essential hypertension] Onset: 3 Chronic Fluid and electrolyte disorders (20 sources) Acute hyponatremia; Translations: [Hypo-osmolality and hyponatremia] 07-14-2022 Episodic Malaise and fatigue (17 sources) Asthenia; Translations: [Weakness] Onset: 3 06-20-2022 Episodic Noninfectious gastroenteritis (4 sources) Lymphocytic colitis; Translations: [LYMPHOCYTIC COLITIS] Onset: 3 Chronic Other aftercare (1 source) USP (current) use of aspirin; Translations: [PENITENTIARY CURRENT USE OF ASPIRIN] Onset: 3 Episodic Other aftercare (1 source) Other terminal press operator (current) drug therapy; Translations: [OTH PENITENTIARY CURRENT DRUG THERAPY] Onset: 3 Episodic Other aftercare (1 source) USP (current) use of oral hypoglycemic drugs; Translations: [PENITENTIARY USE ORAL HYPOGLYCEMIC DX] Onset: 3 Episodic Other circulatory disease (2 sources) Orthostatic hypotension Episodic Other diseases of bladder and urethra (5 sources) Urethral stricture; Translations: [Other urethral stricture, female] Onset: 2 Episodic Other diseases of kidney and ureters (1 source) Acquired renal cyst without neoplastic change; Translations: [Cyst of kidney, acquired] Onset: 3 Episodic Other diseases of kidney and ureters (2 sources) Cyst of kidney 10-30-2022 Episodic Other female genital disorders (20 sources) Swelling of labia; Translations: [Other specified conditions associated with female genital organs and menstrual cycle] Episodic Other female genital disorders (1 source) Other specified conditions associated with female genital organs and menstrual cycle Episodic Other gastrointestinal disorders (13 sources) Irritable bowel syndrome; Translations: [Irritable bowel syndrome without diarrhea] Chronic Other gastrointestinal disorders (3 sources) Irritable bowel syndrome without diarrhea; Translations: [IRRITABLE BOWEL SYND W/O DIARRHEA] Onset: 3 Chronic Other gastrointestinal disorders (1 source) Celiac disease; Translations: [CELIAC DISEASE] Onset: 3 Chronic Other gastrointestinal disorders (1 source) Irritable bowel syndrome with diarrhea; Translations: [Irritable bowel syndrome with diarrhea] Chronic Other gastrointestinal disorders (1 source) Irritable bowel syndrome with diarrhea Chronic Other gastrointestinal disorders (20 sources) Diarrhea; Translations: [Diarrhea, unspecified] Episodic Other gastrointestinal disorders (20 sources) Dysphagia; Translations: [Dysphagia, unspecified] Episodic Other gastrointestinal disorders (20 sources) Constipation; Translations: [Constipation, unspecified] 06-20-2022 Episodic Other gastrointestinal disorders (6 sources) Constipation, unspecified; Translations: [Constipation, unspecified] 07-14-2022 Episodic Other gastrointestinal disorders (20 sources) Altered bowel function; Translations: [Change in bowel habit] Episodic Other gastrointestinal disorders (6 sources) Diarrhea, unspecified; Translations: [DIARRHEA UNSPECIFIED] Onset: 3 Episodic Other gastrointestinal disorders (1 source) Change in bowel habit Episodic Other liver diseases (1 source) Other specified diseases of liver; Translations: [OTHER SPECIFIED DISEASES OF LIVER] Onset: 2 Chronic Other nervous system disorders (20 sources) Cerebral cysts; Translations: [Arachnoid cyst] Chronic Other nervous system disorders (20 sources) Cerebral arachnoid cyst; Translations: [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 Other nervous system disorders (3 sources) H/O: migraine 05-20-2019 Episodic Other nutritional; endocrine; and metabolic disorders (6 sources) Body mass index less than 20; Translations: [Body mass index (BMI) 19.9 or less, adult] Episodic Other nutritional; endocrine; and metabolic disorders (14 sources) Decrease in appetite; Translations: [Anorexia] 07-14-2022 Episodic Other nutritional; endocrine; and metabolic disorders (20 sources) Unintentional weight loss; Translations: [Abnormal weight loss] Episodic Other nutritional; endocrine; and metabolic disorders (20 sources) Loss of appetite; Translations: [Anorexia] Episodic Other nutritional; endocrine; and metabolic disorders (3 sources) Anorexia; Translations: [ANOREXIA] Onset: 3 Episodic Other nutritional; endocrine; and metabolic disorders (2 sources) Weight loss; Translations: [Abnormal weight loss] 02-12-2023 Episodic Other screening for suspected conditions (not mental disorders or infectious disease) (3 sources) Abnormal level of blood mineral; Translations: [Encounter for screening mammogram for malignant neoplasm of breast] Episodic Residual codes; unclassified (8 sources) Body mass index 20-24 - normal; Translations: [Body Mass Index between 19-24, adult] Episodic Residual codes; unclassified (15 sources) Altered mental status; Translations: [Altered mental status, unspecified] 07-14-2022 Episodic Residual codes; unclassified (6 sources) Altered mental status, unspecified; Translations: [Altered mental status] 07-14-2022 Episodic Residual codes; unclassified (1 source) Acquired absence of other specified parts of digestive tract; Translations: [ACQ ABSENCE OTH PART DIGESTV TRACT] Onset: 3 Episodic Residual codes; unclassified (1 source) Acquired absence of both cervix and uterus; Translations: [ACQUIRED ABSENCE BOTH CERVIX AND UTERUS] Onset: 3 Episodic Spondylosis; intervertebral disc disorders; other back problems (20 sources) Inflammation of sacroiliac joint; Translations: [Sacroiliitis, not elsewhere classified] 07-14-2022 Chronic Syncope (8 sources) Near syncope; Translations: [Syncope and collapse] Episodic Unclassified (1 source) Encounter for preprocedural laboratory examination; Translations: [Encounter for preprocedural laboratory examination] Onset: 3 Unclassified (1 source) Diarrhea, unspecified; Translations: [Diarrhea, unspecified] Onset: 3 Unclassified (1 source) Dietary counseling and surveillance; Translations: [Dietary counseling and surveillance] Onset: 2 Urinary tract infections (3 sources) Chronic cystitis 05-20-2019 Chronic Urinary tract infections (20 sources) Acute cystitis; Translations: [Acute cystitis without hematuria] Onset: 2 Resolved: 2 Episodic Past or Other Problems Problem Classification Problem Date Documented Da te Episodic/Chronic E Codes: Natural/environment (1 source) Exposure to other specified factors, subsequent encounter; Translations: [EXPOS OTH SPEC FACTORS SUBSEQUENT] Onset: 09-05-2022 Episodic Genitourinary symptoms and ill-defined conditions (20 sources) Dysuria; Translations: [Dysuria] Onset: 01-07-2022 Resolved: 05-11-2022 Episodic Immunizations and screening for infectious disease (1 source) Contact with and (suspected) exposure to other viral communicable diseases Onset: 09-22-2021 Resolved: 09-22-2021 Episodic Nonspecific chest pain (20 sources) Chest pain; Translations: [Chest pain, unspecified] Onset: 06-13-2022 02-05-2022 Episodic Other diseases of kidney and ureters (1 source) Cyst of kidney, acquired; Translations: [CYST OF KIDNEY ACQUIRED] Onset: 09-05-2022 Episodic Other fractures (1 source) Fracture of one rib, left side, subsequent encounter for fracture with routine healing; Translations: [FX 1 RIB LT SIDE SUBSEQUENT FX RTN] Onset: 09-05-2022 Episodic Other hematologic conditions (1 source) Cyst of spleen; Translations: [CYST OF SPLEEN] Onset: 09-05-2022 Episodic Other nutritional; endocrine; and metabolic disorders (8 sources) Abnormal weight loss; Translations: [Loss of weight] Onset: 09-11-2022 Episodic Other nutritional; endocrine; and metabolic disorders (1 source) Body mass index (BMI) 19.9 or less, adult; Translations: [BODY MASS INDEX 19.9 OR LESS ADULT] Onset: 09-05-2022 Episodic Other upper respiratory infections (1 source) Acute upper respiratory infection, unspecified Onset: 09-22-2021 Resolved: 09-22-2021 Episodic Residual codes; unclassified (4 sources) Localized edema; Translations: [LOCALIZED EDEMA] Onset: 03-28-2022 Episodic Spondylosis; intervertebral disc disorders; other back problems (4 sources) Chronic neck pain; Translations: [Cervicalgia] Onset: 06-15-2022 05-20-2019 Episodic Unclassified (8 sources) Never smoked tobacco; Translations: [Never a smoker] Results Test Name Value Interpretation Reference Range Facil ity CT abdomen pelvis w conon CT abdomen pelvis w con [facility] [address] [place] [address] CT Scan Report Signed Patient: Maritza Vicente MR#: [id number] 13 : 1940 Acct:[id number] Age/Sex: 83 / F ADM Date: 08/23/23 Loc: ER Room: Type: [facility] ER Attending Dr: Copies to: Ricki Sam DO Ordering Provider: Ricki Sam DO Date of Service: 08/23/23 CT/CT abdomen pelvis w con: lower abd pain CT abdomen pelvis w con 08/23/2023 9:34 PM SIGNS AND SYMPTOMS: Lower abdominal pain, pelvic pain, recent UTI TECHNIQUE: Multidetector ct axial images of the abdomen and pelvis were obtained with IV contrast. Multiplanar reformats were performed and reviewed to further define anatomy and possible pathology. CT was performed with one or more of the following dose reduction techniques: Automated exposure control, adjustment of the mA and/or kV according to patient size, or use of iterative reconstruction technique. COMPARISON: None. FINDINGS: Lower Chest: Within normal limits. ABDOMEN: Liver: There is a 2.6 cm focus of hypoattenuation with accompanying calcifications in the right hepatic lobe. Additional hypoattenuating foci are redemonstrated with the largest measuring 2.9 cm in greatest dimension. These are unchanged compared to the prior exam. Bile Ducts: Normal caliber. Gallbladder: Previously removed Pancreas: Within normal limits. Spleen: Calcified granulomas are present in the spleen. Adrenals: Within normal limits. Kidneys: Within normal limits. Pelvis: Reproductive Organs: No pelvic masses. Ureters: Within normal limits. Bladder: Within normal limits. Bowel: There are uncomplicated colonic diverticula. There is no evidence of bowel obstruction. Mesenteric Lymph Nodes: No enlarged mesenteric lymph nodes. Peritoneum: No ascites or free air, no fluid collection. Vessels: Atherosclerotic changes are noted in the abdominal aorta and its branches. Retroperitoneum: Within normal limits. Abdominal Wall: Within normal limits. Bones: Within normal limits. CT/CT abdomen pelvis w con IMPRESSION: Uncomplicated colonic diverticulosis is noted. No bowel obstruction or obstructive uropathy. Hypoattenuating structures are redemonstrated in the liver. These are unchanged. Impression dictated by: Nisha Rabago M.D.08/24/2023 8:50 AM Dictation Location: [place] [address] Transcribed By: [facility] 08/24/23849 Dictated By: Nisha Rabago II, MD 08/24/23839 Signed By: 08/24/23849 Normal [facility] Partial Thromboplastin Timeo n 08-24-2023 aPTT Coag (Bld) [Time] 34.9 s Normal 25.1-36.5 [facility] Comment on above: Result Comment: A he matocrit value greater than 55% may lead to inaccurate results in coagulation testing. Patients having hematocrit values >55% require a special collection tube for coagulation studies. Please contact the laboratory at [phone] for redraw instructions. PERFORMED BY: [place] [address] PATHOLOGIST [employer] TIM CHRISTIAN M.D. Performed By: #### P TT, PT #### [address] Prothrombin Time INRon 08-24 INR Coag (PPP) [Relative time] 1.1 {INR} Normal [facility] Comment on above: Result Comment: INR Therapeutic Range A) Pre- and Peroperative OAT started two weeks before surgery. NOT HIP SURGERY: 1.5 - 2.5 HIP SURGERY: 2 - 3 B) Primary and secondary prevention of venous THROMBOSIS: 2 - 3 C) Active venous thrombosis, pulmonary embolism and prevention of recurrent venous thrombosis: 2 - 3 D) Prevention of arterial thromboembolism including patients with mechanical heart valves: 3 - 4.5 Performed By: #### P TT, PT #### [facility] [address] PT Coag (PPP) [Time] 13.7 s High 9.0-12.9 [facility] Comment on above: Result Comment: A he matocrit value greater than 55% may lead to inaccurate results in coagulation testing. Patients having hematocrit values >55% require a special collection tube for coagulation studies. Please contact the laboratory at [phone] for redraw instructions. Performed By: #### P TT, PT #### [facility] [address] Redraw Potassiumon 3 Potassium [Moles/Vol] 4.6 mmol/L Normal 3.5-5.1 [facility] Comment on above: Order Comment: REDRA W Result Comment: PERF ORMED BY: [place] [address] PATHOLOGIST [employer] TIM CHRISTIAN M.D. Performed By: #### C REAT, LYTES, LIPID, BUN, CBC, PP #### [facility] [address] Activated partial thrombopla stin time (aPTT) in platelet poor plasma by coagulation aOrdered By: Ricki Sam on 08-23-2023 aPTT Coag (PPP) [Time] 34.9 s 25.1-36.5 [facility] Comment on above: A hematocrit value g reater than 55% may lead to inaccurate results in coagulation testing. Patients having hematocrit values >55% require a special collection tube for coagulation studies. Please contact the laboratory at [phone] for redraw instructions. Alanine aminotransferase [En zymatic activity/volume] in Serum or PlasmaOrdered By: Ricki Sam on 08-23-2023 ALT [Catalytic activity/Vol] 26 U/L 7-52 [facility] Albumin [Mass/volume] in Ser um or Plasma by Bromocresol green (BCG) dye binding methoOrdered By: Ricki Sam on 08-23-2023 Albumin BCG dye [Mass/Vol] 4.4 g/dL 3.5-5.7 [facility] Alkaline phosphatase [Enzyma tic activity/volume] in Serum or PlasmaOrdered By: Ricki Sam on 08-23-2023 ALP [Catalytic activity/Vol] 41 U/L 34-104 [facility] Aspartate aminotransferase [ Enzymatic activity/volume] in Serum or PlasmaOrdered By: Ricki Sam on 08-23-2023 AST [Catalytic activity/Vol] 28 U/L 13-39 [facility] Basic Metabolic Panelon 08-14 Calcium [Mass/Vol] 10.3 mg/dL Normal 8.6-10.3 [facility] Comment on above: Performed By: #### C REANTHONY, LYTES, LIPID, BUN, CBC, PP #### [facility] [address] [place] [address] [place] Chloride [Moles/Vol] 97 mmol/L Low 98-107 [facility] Comment on above: Performed By: #### C AMANDA LYTES, LIPID, BUN, CBC, PP #### [facility] [address] [place] [address] [place] CO2 [Moles/Vol] 31.2 mmol/L High 21.0-31.0 [facility] Comment on above: Performed By: #### C REANTHONY, LYTES, LIPID, BUN, CBC, PP #### [facility] [address] [place] [address] [place] Creatinine [Mass/Vol] 0.72 mg/dL Normal 0.60-1.20 [facility] Comment on above: Performed By: #### C REAT, LYTES, LIPID, BUN, CBC, PP #### [facility] [address] [place] [address] [place] Creatinine Clr Calc Pharmacy 37.83 [facility] Comment on above: Performed By: #### C REANTHONY, LYTES, LIPID, BUN, CBC, PP #### [facility] [address] [place] [address] [place] GFR/1.73 sq M.predicted MDRD (S/P/Bld) [Vol rate/Area] mL/min/{1.73_m2} Normal [facility] Comment on above: Performed By: #### C REAT, LYTES, LIPID, BUN, CBC, PP #### [facility] [address] Glucose [Mass/Vol] 107 mg/dL High 70-100 [facility] Comment on above: Result Comment: [place] Glucose Reference Range is dependent on time and content of last meal. Glucose of more than 200 mg/dL in a nonstressed, ambulatory subject supports the diagnosis of Diabetes Mellitus. ADA recommended reference range Performed By: #### C REAT, LYTES, LIPID, BUN, CBC, PP #### [facility] [address] Potassium Normal 3.5-5.1 [facility] Comment on above: Result Comment: Unac ceptable specimen due to HEMOLYSIS. Redraw reordered. Performed By: #### C REAT, LYTES, LIPID, BUN, CBC, PP #### [facility] [address] Sodium [Moles/Vol] 132 mmol/L Low 136-145 [facility] Comment on above: Performed By: #### C REAT, LYTES, LIPID, BUN, CBC, PP #### [facility] [address] Urea nitrogen [Mass/Vol] 14 mg/dL Normal 7-25 [facility] Comment on above: Performed By: #### C REAT, LYTES, LIPID, BUN, CBC, PP #### [facility] [address] Basophils Auto (Bld) [#/Vol] Ordered By: Ricki Sam on 08-23-2023 Basophils (Bld) [#/Vol] 0.1 10*3/uL 0.0-0.2 [facility] Basophils/100 WBC Auto (Bld) Ordered By: Ricki Sam on 08-23-2023 Basophils/100 WBC (Bld) 1.1 % . [facility] Bilirubin Test strip Ql (U)O rdered By: Ricki Sam on 08-23-2023 Bilirubin Ql (U) Negative Negative [facility] Bilirubin.direct [Mass/volum e] in Serum or PlasmaOrdered By: Ricki Sam on 08-23-2023 Bilirubin.direct [Mass/Vol] 0.10 mg/dL 0.03-0.1 8 [facility] Bilirubin.total [Mass/volume ] in Serum or PlasmaOrdered By: Ricki Sam on 08-23-2023 Bilirubin [Mass/Vol] 0.6 mg/dL 0.3-1.0 [facility] Calcium [Mass/volume] in Ser um or PlasmaOrdered By: Ricki Sam on 08-23-2023 Calcium [Mass/Vol] 10.3 mg/dL 8.6-10.3 [facility] Carbon dioxide, total [Moles /volume] in Serum or PlasmaOrdered By: Ricki Sam on 08-23-2023 CO2 [Moles/Vol] 31.2 mmol/L 21.0-31.0 [facility] Chloride [Moles/volume] in S maylin or PlasmaOrdered By: Ricki Sam on 08-23-2023 Chloride [Moles/Vol] 97 mmol/L 98-107 [facility] Color Auto (U)Ordered By: Eleazar Sam on 08-23-2023 Color (U) Yellow Yellow [facility] Complete Blood Count Auto Di ffon 08-23-2023 Basophils (Bld) [#/Vol] 0.1 10*3/uL Normal 0.0-0.2 [facility] Comment on above: Result Comment: PERF ORMED BY: [place] [address] PATHOLOGIST [employer] TIM CHRISTIAN M.D. Performed By: #### C REAT, LYTES, LIPID, BUN, CBC, PP #### [facility] [address] [place] [address] [place] Basophils/100 WBC (Bld) 1.1 % Normal . [facility] Comment on above: Performed By: #### C REAT, LYTES, LIPID, BUN, CBC, PP #### [facility] [address] [place] [address] [place] Eosinophils (Bld) [#/Vol] 0.2 10*3/uL Normal 0.0-0.45 [facility] Comment on above: Performed By: #### C REAT, LYTES, LIPID, BUN, CBC, PP #### [address] Eosinophils/100 WBC (Bld) 3.0 % Normal . [facility] Comment on above: Performed By: #### C REAT, LYTES, LIPID, BUN, CBC, PP #### [address] Erythrocyte distribution wid th (RBC) [Ratio] 13.5 % Normal 11.9-15.3 [facility] Comment on above: Performed By: #### C REAT, LYTES, LIPID, BUN, CBC, PP #### [address] Hematocrit (Bld) [Volume fraction] 37.4 % Normal 34.0-46.4 [facility] Comment on above: Performed By: #### C REAT, LYTES, LIPID, BUN, CBC, PP #### [address] Hemoglobin (Bld) [Mass/Vol] 12.9 g/dL Normal 11.8-15. 4 [facility] Comment on above: Performed By: #### C REAT, LYTES, LIPID, BUN, CBC, PP #### [address] Lymphocytes (Bld) [#/Vol] 2.0 10*3/uL Normal 1.00-4.8 [facility] Comment on above: Performed By: #### C REAT, LYTES, LIPID, BUN, CBC, PP #### [address] Lymphocytes/100 WBC (Bld) 36.4 % Normal . [facility] Comment on above: Performed By: #### C REAT, LYTES, LIPID, BUN, CBC, PP #### [place] [address] MCH (RBC) [Entitic mass] 29.5 pg Normal 24.7-34.3 [facility] Comment on above: Performed By: #### C REAT, LYTES, LIPID, BUN, CBC, PP #### [address] MCV (RBC) [Entitic vol] 85.8 fL Normal 80-100 [facility] Comment on above: Performed By: #### C REAT, LYTES, LIPID, BUN, CBC, PP #### [address] Mean Corpuscular HGB Conc 34.4 g/dL Normal 32.0-35.0 [facility] Comment on above: Performed By: #### C REAT, LYTES, LIPID, BUN, CBC, PP #### [address] Monocytes (Bld) [#/Vol] 0.4 10*3/uL Normal 0.0-0.8 [facility] Comment on above: Performed By: #### C REAT, LYTES, LIPID, BUN, CBC, PP #### [address] Monocytes/100 WBC (Bld) 16.22 % Normal 0.00-20.00 [facility] Comment on above: Performed By: #### C REAT, LYTES, LIPID, BUN, CBC, PP #### [address] Monocytes/100 WBC (Bld) 8.4 % Normal . [facility] Comment on above: Performed By: #### C REAT, LYTES, LIPID, BUN, CBC, PP #### [address] Neutrophils (Bld) [#/Vol] 2.7 10*3/uL Normal 1.8-7.7 [facility] Comment on above: Performed By: #### C REAT, LYTES, LIPID, BUN, CBC, PP #### [place] [address] Neutrophils/100 WBC (Bld) 51.1 % Normal . [facility] Comment on above: Performed By: #### C REAT, LYTES, LIPID, BUN, CBC, PP #### [facility] [address] NRBC% 0.1 /100{WBC} Normal 0-0.5 [facility] Comment on above: Performed By: #### C REAT, LYTES, LIPID, BUN, CBC, PP #### [facility] [address] Platelet mean volume (Bld) [Entitic vol] 7.6 fL Normal 6.3-10.7 [facility] Comment on above: Performed By: #### C REAT, LYTES, LIPID, BUN, CBC, PP #### [address] Platelets (Bld) [#/Vol] 177 10*3/uL Normal 150-450 [facility] Comment on above: Performed By: #### C REAT, LYTES, LIPID, BUN, CBC, PP #### [address] RBC (Bld) [#/Vol] 4.37 10*6/uL Normal 3.60-5.00 [facility] Comment on above: Performed By: #### C REAT, LYTES, LIPID, BUN, CBC, PP #### [address] WBC (Bld) [#/Vol] 5.4 10*3/uL Normal 3.8-11.6 [facility] Comment on above: Performed By: #### C REAT, LYTES, LIPID, BUN, CBC, PP #### [address] Creatinine [Mass/volume] in Serum or PlasmaOrdered By: Ricki Sam on 08-23-2023 Creatinine [Mass/Vol] 0.72 mg/dL 0.60-1.20 [facility] Eosinophils Auto (Bld) [#/Vo l]Ordered By: Ricki Sam on 08-23-2023 Eosinophils (Bld) [#/Vol] 0.2 10*3/uL 0.0-0.45 [facility] Eosinophils/100 WBC Auto (Bl d)Ordered By: Ricki Sam on 08-23-2023 Eosinophils/100 WBC (Bld) 3.0 % . [facility] Erythrocyte distribution wid th Auto (RBC) [Ratio]Ordered By: Ricki Sam on 08-23-2023 Erythrocyte distribution wid th (RBC) [Ratio] 13.5 % 11.9-15.3 [facility] Globulin Calc (S) [Mass/Vol] Ordered By: Ricki Sam on 08-23-2023 Globulin (S) [Mass/Vol] 2.7 g/dL [facility] Glucose [Mass/volume] in Ser um or PlasmaOrdered By: Ricki Sam on 08-23-2023 Glucose [Mass/Vol] 107 mg/dL 70-100 [facility] Comment on above: ADA recommended refe rence rangeRandom Glucose Reference Range is dependent on time and content of last meal. Glucose of more than 200 mg/dL in a nonstressed, ambulatory subject supports the diagnosis of Diabetes Mellitus. Hematocrit Auto (Bld) [Volum e fraction]Ordered By: Ricki Sam on 08-23-2023 Hematocrit (Bld) [Volume fraction] 37.4 % 3 4.0-46.4 [facility] Hemoglobin [Mass/volume] in BloodOrdered By: Ricki Sam on 08-23-2023 Hemoglobin (Bld) [Mass/Vol] 12.9 g/dL 11.8-15. 4 [facility] Hepatic Panelon 08-23-2023 Albumin [Mass/Vol] 4.4 g/dL Normal 3.5-5.7 [facility] Comment on above: Performed By: #### C DIAN PATEL, LIPID, BUN, CBC, PP #### [address] Albumin/Globulin [Mass ratio] 1.6 {ratio} Normal [facility] Comment on above: Performed By: #### C REAT, LYTES, LIPID, BUN, CBC, PP #### [address] ALP [Catalytic activity/Vol] 41 U/L Normal 34-104 [facility] Comment on above: Performed By: #### C REAT, LYTES, LIPID, BUN, CBC, PP #### [address] ALT [Catalytic activity/Vol] 26 U/L Normal 7-52 [facility] Comment on above: Performed By: #### C REAT, LYTES, LIPID, BUN, CBC, PP #### [address] AST [Catalytic activity/Vol] 28 U/L Normal 13-39 [facility] Comment on above: Performed By: #### C REAT, LYTES, LIPID, BUN, CBC, PP #### [address] Bilirubin [Mass/Vol] 0.6 mg/dL Normal 0.3-1.0 [facility] Comment on above: Performed By: #### C REAT, LYTES, LIPID, BUN, CBC, PP #### [address] Bilirubin,Indirect 0.5 mg/dL Normal [facility] Comment on above: Performed By: #### C REAT, LYTES, LIPID, BUN, CBC, PP #### [address] Bilirubin.indirect [Mass/Vol] 0.10 mg/dL Normal 0.03-0 .18 [facility] Comment on above: Performed By: #### C REAT, LYTES, LIPID, BUN, CBC, PP #### [address] Globulin (S) [Mass/Vol] 2.7 g/dL Normal [facility] Comment on above: Performed By: #### C REAT, LYTES, LIPID, BUN, CBC, PP #### [address] [place] [address] [place] Protein [Mass/Vol] 7.1 g/dL Normal 6.4-8.9 [facility] Comment on above: Performed By: #### C DIAN PATEL, LIPID, BUN, CBC, PP #### [address] INR in Platelet poor plasma by Coagulation assayOrdered By: Ricki Sam on 08-23-2023 INR Coag (PPP) [Relative time] 1.1 {INR} [facility] Comment on above: INR Therapeutic Rang e A) Pre- and Peroperative OAT started two weeks before surgery. NOT HIP SURGERY: 1.5 - 2.5 HIP SURGERY: 2 - 3B) Primary and secondary prevention of venous THROMBOSIS: 2 - 3C) Active venous thrombosis, pulmonary embolismand prevention of recurrent venous thrombosis: 2 - 3D) Prevention of arterial thromboembolismincluding patients with mechanical heart valves: 3 - 4.5 Ketones Auto test strip (U) [Mass/Vol]Ordered By: Ricki Sam on 08-23-2023 Ketones (U) [Mass/Vol] Negative Negative [facility] Leukocytes [#/volume] correc ryanne for nucleated erythrocytes in Blood by Automated counOrdered By: Ricki Sam on 08-23-2023 WBC corrected for nucl RBC A uto (Bld) [#/Vol] 5.4 10*3/uL 3.8-11.6 [facility] Lipaseon 08-23-2023 Lipase [Catalytic activity/Vol] 33.0 U/L Normal 11.0 -82.0 [facility] Comment on above: Result Comment: PERF ORMED BY: [place] [address] PATHOLOGIST [employer] TIM CHRISTIAN M.D. Performed By: #### C JOAN PATELTES, LIPID, BUN, CBC, PP #### [place] [id number] [place] Lipase [Enzymatic activity/v olume] in Serum or PlasmaOrdered By: Ricki Sam on 08-23-2023 Lipase [Catalytic activity/Vol] 33.0 U/L 11.0 -82.0 [facility] Lymphocytes Auto (Bld) [#/Vo l]Ordered By: Ricki Sam on 08-23-2023 Lymphocytes (Bld) [#/Vol] 2.0 10*3/uL 1.00-4.8 [facility] Lymphocytes/100 WBC Auto (Bl d)Ordered By: Ricki Sam on 08-23-2023 Lymphocytes/100 WBC (Bld) 36.4 % . [facility] MCH Auto (RBC) [Entitic mass ]Ordered By: Ricki Sam on 08-23-2023 MCH (RBC) [Entitic mass] 29.5 pg 24.7-34.3 [facility] MCHC Auto (RBC) [Mass/Vol]Or dered By: Ricki Sam on 08-23-2023 MCHC (RBC) [Mass/Vol] 34.4 g/dL 32.0-35.0 [facility] MCV Auto (RBC) [Entitic vol] Ordered By: Ricki Sam on 08-23-2023 MCV (RBC) [Entitic vol] 85.8 fL 80-100 [facility] Monocyte distribution width [Entitic volume] in Blood by AutomatedOrdered By: Ricki Sam on 08-23-2023 Monocyte distribution width Auto (Bld) [Entitic vol] 16.22 % 0.00-20.00 [facility] Monocytes Auto (Bld) [#/Vol] Ordered By: Ricki Sam on 08-23-2023 Monocytes (Bld) [#/Vol] 0.4 10*3/uL 0.0-0.8 [facility] Monocytes/100 WBC Auto (Bld) Ordered By: Ricki Sam on 08-23-2023 Monocytes/100 WBC (Bld) 8.4 % . [facility] Neutrophils Auto (Bld) [#/Vo l]Ordered By: Ricki Sam on 08-23-2023 Neutrophils (Bld) [#/Vol] 2.7 10*3/uL 1.8-7.7 [facility] Neutrophils/100 WBC Auto (Bl d)Ordered By: Ricki Sam on 08-23-2023 Neutrophils/100 WBC (Bld) 51.1 % . [facility] Nitrite Test strip Ql (U)Ord ered By: Ricki Sam on 08-23-2023 Nitrite Ql (U) Negative Negative [facility] No Panel InformationOrdered By: Ricki Sam on 08-23-2023 Estimated GFR (CKD-EPI) > 60.0 mL/Min [facility] Creatinine Clearanc e (Chem 37.83 [facility] Nucleated erythrocytes [Pres ence] in Blood by Automated countOrdered By: Ricki Sam on 08-23-2023 Nucleated RBC Auto Ql (Bld) 0.1 /100{WBC} 0-0.5 [facility] Platelet mean volume Auto (B ld) [Entitic vol]Ordered By: Ricki Sam on 08-23-2023 Platelet mean volume (Bld) [Entitic vol] 7.6 fL 6.3-10.7 [facility] Platelets Auto (Bld) [#/Vol] Ordered By: Ricki Sam on 08-23-2023 Platelets (Bld) [#/Vol] 177 10*3/uL 150-450 [facility] Potassium [Moles/volume] in Serum or PlasmaOrdered By: Ricki Sam on 08-23-2023 Potassium [Moles/Vol] 4.6 mmol/L 3.5-5.1 [facility] Protein Auto test strip (U) [Mass/Vol]Ordered By: Ricki Sam on 08-23-2023 Protein (U) [Mass/Vol] Negative Negative [facility] Protein [Mass/volume] in Ser um or PlasmaOrdered By: Ricki Sam on 08-23-2023 Protein [Mass/Vol] 7.1 g/dL 6.4-8.9 [facility] Prothrombin time (PT)Ordered By: Ricki Sam on 08-23-2023 PT Coag (PPP) [Time] 13.7 s 9.0-12.9 [facility] Comment on above: A hematocrit value g reater than 55% may lead to inaccurate results in coagulation testing. Patients having hematocrit values >55% require a special collection tube for coagulation studies. Please contact the laboratory at [phone] for redraw instructions. RBC Auto (Bld) [#/Vol]Ordere d By: Ricki Sam on 08-23-2023 RBC (Bld) [#/Vol] 4.37 10*6/uL 3.60-5.00 [facility] Serum or plasma albumin/glob ulin mass ratioOrdered By: Ricki Sam on 08-23-2023 Albumin/Globulin [Mass ratio] 1.6 {ratio} [facility] Serum or plasma anion gap de terminationOrdered By: Ricki Sam on 08-23-2023 Anion gap [Moles/Vol] N/A [facility] Serum or plasma non-glucuron idated bilirubin measurement (mass/volume)Ordered By: Ricki Sam on 08-23-2023 Bilirubin.indirect [Mass/Vol] 0.5 mg/dL [facility] Sodium [Moles/volume] in Ser um or PlasmaOrdered By: Ricki Sam on 08-23-2023 Sodium [Moles/Vol] 132 mmol/L 136-145 [facility] Specific gravity Auto test s trip (U) [Rel density]Ordered By: Ricki Sam on 08-23-2023 Specific gravity (U) [Rel density] 1.005 1.001-1.030 [facility] Urea nitrogen [Mass/volume] in Serum or PlasmaOrdered By: Ricki Sam on 08-23-2023 Urea nitrogen [Mass/Vol] 14 mg/dL 7-25 [facility] Urinalysison 08-23-2023 Appearance (U) Clear Normal Clear [facility] Comment on above: Order Comment: Name Collection Type:: Clean-Voided Midstream Performed By: #### U A #### [facility] [address] Bilirubin,Urine Negative Normal Negative [facility] Comment on above: Order Comment: Name Collection Type:: Clean-Voided Midstream Performed By: #### U A #### [facility] [address] [place] [address] [place] Color (U) Yellow Normal Yellow [facility] Comment on above: Order Comment: Name Collection Type:: Clean-Voided Midstream Performed By: #### U A #### [facility] [address] [place] [address] [place] Glucose Ql (U) Normal Normal Normal [facility] Comment on above: Order Comment: Name Collection Type:: Clean-Voided Midstream Performed By: #### U A #### [address] Ketones Ql (U) Negative Normal Negative [facility] Comment on above: Order Comment: Name Collection Type:: Clean-Voided Midstream Performed By: #### U A #### [address] Leukocyte esterase Test stri p Ql (U) Negative Normal Negative [facility] Comment on above: Order Comment: Name Collection Type:: Clean-Voided Midstream Performed By: #### U A #### [address] Nitrite,Urine Negative Normal Negative [facility] Comment on above: Order Comment: Name Collection Type:: Clean-Voided Midstream Performed By: #### U A #### [address] Occult Blood,Urine Negative Normal Negative [facility] Comment on above: Order Comment: Name Collection Type:: Clean-Voided Midstream Result Comment: PERF ORMED BY: [place] [address] PATHOLOGIST [employer] TIM CHRISTIAN M.D. Performed By: #### U A #### [place] [address] [place] pH (U) 7.5 [pH] Normal 5.0-9.0 [facility] Comment on above: Order Comment: Name Collection Type:: Clean-Voided Midstream Performed By: #### U A #### [place] [address] [place] Protein,Urine Negative Normal Negative [facility] Comment on above: Order Comment: Name Collection Type:: Clean-Voided Midstream Performed By: #### U A #### [address] Specificy Hepzibah,Urine 1.005 Normal 1.001-1.030 [facility] Comment on above: Order Comment: Name Collection Type:: Clean-Voided Midstream Performed By: #### U A #### [facility] [address] [place] [address] [place] Urobilinogen,Urine Normal Normal Normal [facility] Comment on above: Order Comment: Name Collection Type:: Clean-Voided Midstream Performed By: #### U A #### [facility] [address] [place] [address] [place] Urine clarity by refractomet ry automatedOrdered By: Ricki Sam on 08-23-2023 Clarity Refractometry automated (U) Clear Clear [facility] Urine glucose measurement by automated test strip (mass/volume)Ordered By: Ricki Sam on 08-23-2023 Glucose Auto test strip (U) [Mass/Vol] Normal mg/dL Normal [facility] Urine hemoglobin detection b y automated test stripOrdered By: Ricki Sam on 08-23-2023 Hemoglobin Auto test strip Ql (U) Negative Ne gative [facility] Urine leukocyte esterase det ection by automated test stripOrdered By: Ricki Sam on 08-23-2023 Leukocyte esterase Auto test strip Ql (U) Negative Negative [facility] Urobilinogen Auto test strip (U) [Mass/Vol]Ordered By: Ricki Sam on 08-23-2023 Urobilinogen (U) [Mass/Vol] Normal mg/dL Normal [facility] WBC Auto (Bld) [#/Vol]Ordere d By: Ricki Sam on 08-23-2023 WBC (Bld) [#/Vol] 5.4 10*3/uL 3.8-11.6 [facility] pH Auto test strip (U)Ordere d By: Ricki Sam on 08-23-2023 pH (U) 7.5 [pH] 5.0-9.0 [facility] Ferritinon 03-22-2023 Ferritin [Mass/Vol] 74 ng/mL Normal 11-307 [facility] Comment on above: Result Comment: NORM ALS MEN <30 YRS 16-132 ng/mL MEN >30 YRS 8-338 ng/mL WOMEN (PREMEN) 6-104 ng/mL WOMEN (POSTMEN) 12-210 ng/mL Performed By: #### 2 855215, 6027697, 0645795, [id number] ####[facility] [address] [place] [address] Ironon 03-22-2023 Iron [Mass/Vol] 66 microgram/dL Normal 35-153 [facility] Comment on above: Performed By: #### 2 693124, [id number], 2680055, [id number] ####[facility] [address] [place] [address] Iron Saturationon 03-22-2023 Iron binding capacity [Mass/Vol] 461 microgram/dL High 250-[address] [facility] Comment on above: Performed By: #### 2 100338, 3659375, 3879112, 8519876 ####[address] [address] Iron saturation [Mass fraction] 14 % Low 20-5 0 [facility] Comment on above: Performed By: #### 2 123949, 8121214, 2697250, 5133973 ####[facility] [address] [place] [address] Physician Orderon 03-22-2023 Physician Order [id number]:127 Normal [facility] Transferrinon 03-22-2023 Transferrin [Mass/Vol] 329 mg/dL Normal 200-370 [facility] Comment on above: Order Comment: Trans maty order added by Discern Rule: gl_ftmc_add_iron_trans . Performed By: #### 2 126003, 1073848, 2618493, 7019737 ####[facility] [address] [place] [address] Physician Orderon 03-20-2023 Physician Order [id number]:127 Normal [facility] C Urineon 03-16-2023 Bacteria identified Cx Nom (U) Microbiology PROCEDURE: Urine Culture [R1] SOURCE: U CleanCatch BODY SITE: COLLECTED DATE/TIME: 03/13/2023 14:30 EDT RECEIVED DATE/TIME: 03/14/2023 15:32 EDT START DATE/TIME: 03/14/2023 15:33 EDT FREE TEXT SOURCE: OLEG ALEJANDRA, ALEXIA DEJESUS CNP, ALEXIA Arreola FINAL REPORTS Final Report [] Verified Date/Time: 03/16/2023 11:35 EDT 1,000 cfu/ml Mixed skin contaminants Performing Locations R1: This test was performed at: [facility], [address] [place] [address], [address], [facility] Comment on above: Performed By: #### 2 [id number] ####[address] [address] CMPon 03-14-2023 Albumin [Mass/Vol] 4.3 g/dL Normal 3.3-5.0 [facility] Comment on above: Performed By: #### 2 523808, [id number] ####[address] [address] Albumin/Globulin (S) [Mass conc ratio] 1.7 Normal 1.1-2.2 [facility] Comment on above: Performed By: #### 2 690197, [id number] ####[address] [address] ALP [Catalytic activity/Vol] 47 Int._Unit/L Normal 21- 98 [facility] Comment on above: Performed By: #### 2 212397, [id number] ####[address] [address] ALT No additional P-5'-P [Catalytic activity/Vol] 27 Int._Unit/L Normal 6-46 [facility] Comment on above: Performed By: #### 2 093021, [id number] ####[address] [address] Anion gap [Moles/Vol] 11 mmol/L Normal 6-16 [facility] Comment on above: Performed By: #### 2 012120, [id number] ####[facility] [address] [address] AST [Catalytic activity/Vol] 24 Int._Unit/L Normal 5-4 3 [facility] Comment on above: Performed By: #### 2 484522, [id number] ####[facility] [address] [place] [address], [place] [address] Bilirubin [Mass/Vol] 0.5 mg/dL Normal 0.0-1.1 [facility] Comment on above: Performed By: #### 2 025847, [id number] ####[facility] [address] [place] [address] Calcium [Mass/Vol] 9.8 mg/dL Normal 8.9-11.1 [facility] Comment on above: Performed By: #### 2 432880, [id number] ####[facility] [address] [place] [address], [place] [address] Chloride [Moles/Vol] 93 mmol/L Low 101-111 [facility] Comment on above: Performed By: #### 2 728000, [id number] ####[facility] [address] [place] [address] CO2 [Moles/Vol] 31 mmol/L Normal 21-31 [facility] Comment on above: Performed By: #### 2 163550, [id number] ####[facility] [address]N[facility] [address] Creatinine [Mass/Vol] 0.6 mg/dL Normal 0.5-1.3 [facility] Comment on above: Performed By: #### 2 496273, [id number] ####[facility] [address] [address] Globulin (S) [Mass/Vol] 2.5 g/dL Normal 1.4-4.0 [facility] Comment on above: Performed By: #### 2 474027, [id number] ####[facility] [address] [place] [address] Glucose [Mass/Vol] 100 mg/dL Normal 55-199 [facility] Comment on above: Result Comment: If t his glucose result represents a fasting glucose, interpretation should refer to the following reference range: 55-99 mg/dL Performed By: #### 2 521044, [id number] ####[facility] [address] [place] [address] Potassium [Moles/Vol] 4.5 mmol/L Normal 3.5-5.3 [facility] Comment on above: Performed By: #### 2 068392, [id number] ####[facility] [address] [place] [address] Protein [Mass/Vol] 6.8 g/dL Normal 6.0-7.8 [facility] Comment on above: Performed By: #### 2 754737, [id number] ####[facility] [address] [place] [address] Sodium [Moles/Vol] 130 mmol/L Low 135-145 [facility] Comment on above: Performed By: #### 2 156119, [id number] ####[facility] [address] [place] [address] Urea nitrogen [Mass/Vol] 19 mg/dL Normal 5-21 [facility] Comment on above: Performed By: #### 2 439832, [id number] ####[facility] [address] [place] [address] Urea nitrogen/Creatinine [Mass ratio] 32 No Units High 10-20 [facility] Comment on above: Performed By: #### 2 284254, [id number] ####[facility] [address] [place] [address] Physician Orderon 03-14-2023 Physician Order [id number]:127 Normal [facility] eGFRon 03-14-2023 GFR/1.73 sq M.predicted di g non-blacks MDRD (S/P/Bld) [Vol rate/Area] 90 mL/min/1.73 m2 Normal >=59 [facility] Comment on above: Order Comment: Order added by Discern Expert. Result Comment: Certified Indoor Environmentalist nahum kidney disease could be indicated at eGFR's of less than 60 mL/min/1.73m2. Kidney failure is indicated at less than 15 mL/min/1.73m2. Performed By: #### 2 874826, [id number] ####[facility] [address] [place] [address] Glucose Glucometer (BldC) [M ass/Vol]Ordered By: Mark Win on 02-12-2023 Glucose [Mass/Vol] 124 mg/dL [facility] Comment on above: Random Glucose Refer ence Range is dependent on time and content of last meal. Glucose of more than 200 mg/dL in a nonstressed, ambulatory subject supports the diagnosis of Diabetes Mellitus. Glucose Poct Glucometerson 0 02-12-2023 Commemt1 Glu2: Cleaned Meter Normal [facility] Comment on above: Result Comment: PERF ORMED BY: [place] [address] PATHOLOGIST [employer]ET[employer] TIM CHRISTIAN M.D. Performed By: #### C DIAN PATEL, LIPID, BUN, CBC, PP #### [facility] [address] [place] [address] Glucose [Mass/Vol] 124 mg/dL Normal [facility] Comment on above: Result Comment: [place] Glucose Reference Range is dependent on time and content of last meal. Glucose of more than 200 mg/dL in a nonstressed, ambulatory subject supports the diagnosis of Diabetes Mellitus. Performed By: #### C AMANDA LYGINGER, LIPID, BUN, CBC, PP #### [facility] [address] [place] [address] [place] Hany 02-12-2023 L Specimen: [id number] Received: 02/12/23 Status: MELO Brown Num: [id number] Spec Type: Surgical Subm Dr: Mark Win MD Tissues: A Duodenum - Biopsy (DUODENAL BX) B Stomach - Biopsy/Polyp (ANTRAL BX) C Gastric Biopsy (GASTRIC EROSION BX) D Colon Biopsy (RANDOM COLON BX) Procedures: Trichrome, HE/8, Gross/Micro L4/4, CD3, H PYLORI Age/ Patient Sex Location Account Attending Physician Maritza Vicente 82/F [id number] Mark Win MD SPEC NUM: [id number] RECD: 02/12/23 STATUS: MELO BROWN NUM: [id number] ERON: 02/12/23- SUBM DR: Mark Win MD ENTERED: 02/12/[address] [facility] [address]: SPEC TYPE: Surgical DEPT: S ORDERED: Trichrome, HE/8, Gross/Micro L4/4, CD3, H PYLORI ORDERED: Trichrome, HE/8, Gross/Micro L4/4, CD3, H PYLORI Pathological Diagnosis A. Small bowel, duodenum, biopsy: - Small intestinal mucosa negative for significant histopathologic changes. - NEGATIVE for celiac disease. B. Stomach, antrum, biopsy: - Reactive gastropathy. - Immunohistochemical stain for Helicobacter pylori is negative. C. Stomach, gastric, erosion, biopsy: - Reactive gastropathy. - Immunohistochemical stain for Helicobacter pylori is negative. D. Colon, random, biopsy: - Colonic mucosa with changes suggestive of lymphocytic colitis. - There is no evidence of chronic colitis. - Negative for epithelial dysplasia. - CD3 is positive for mildly increased surface intraepithelial lymphocytes. - Trichrome is negative for increased subepithelial collagen table. COMMENT: Sections demonstrate small fragments of intestinal mucosa with well preserved glandular architecture. There is mild colonic epithelial lymphocytosis without thickened subepithelial collagen. There is no evidence of chronicity. Patchy lymphoid aggregates are Specimen: [id number] Received: 02/12/23 Status: [facility] Num: [id number] Spec Type: Surgical Subm Dr: Mark Win MD Tissues: A Duodenum - Biopsy (DUODENAL BX) B Stomach - Biopsy/Polyp (ANTRAL BX) C Gastric Biopsy (GASTRIC EROSION BX) D Colon Biopsy (RANDOM COLON BX) Procedures: Trichrome, HE/8, Gross/Micro L4/4, CD3, H PYLORI Patient: Maritza Vicente [id number] (Continued) Specimen: [id number] Received: 02/12/23 (Continued) Pathological Diagnosis (Continued) Signed (signature on file) Elizabet Williamson MD 02/15/23 0909 Specimen: [id number] Received: 02/12/23 Status: MELO Borwn Num: [id number] Spec Type: Surgical Subm Dr: Mark Win MD Tissues: A Duodenum - Biopsy (DUODENAL BX) B Stomach - Biopsy/Polyp (ANTRAL BX) C Gastric Biopsy (GASTRIC EROSION BX) D Colon Biopsy (RANDOM COLON BX) Procedures: Trichrome, HE/8, Gross/Micro L4/4, CD3, H PYLORI Patient: Maritza Vicente [id number] (Continued) Specimen: [id number] Received: 02/12/23 (Continued) Pathological Diagnosis (Continued) also present. This finding is suggestive, however not entirely diagnostic of lymphocytic colitis. In symptomatic patient, a trial of therapy may be helpful. Clinical correlation is advised. Clinical Information Weight loss, rule out sprue, rule out H. pylori, rule out patchy colitis Gross Description A. Received in formalin labeled with the patient's name, number and biopsy duodenal is one fragment of soft saldaña tissue measuring 0.3 cm. Entirely submitted in one cassette labeled A1. B. Received in formalin labeled with the patient's name, number and antral biopsy is one fragment of soft saldaña tissue measuring 0.3 cm. Entirely submitted in one cassette labeled B1. C. Received in formalin labeled with the patient's name, number and gastric erosion biopsy are two fragments of soft saldaña tissue averaging 0.3 x 0.2 x 0.2 cm. Entirely submitted in one cassette labeled C1. D. Received in formalin labeled with the patient's name, number and random colon biopsies rule out patchy colitis are six fragments of soft saldaña (more content not included)... Normal [facility] No Panel InformationOrdered By: Mark Win on 02-12-2023 Bedside Glucose Comment Glu2: cleaned meter [facility] Coding Summary.on 02-01-2023 Coding Summary. [id number] [file] [id number] (more content not included)... Normal [facility] Activated partial thrombopla stin time (aPTT) in platelet poor plasma by coagulation aOrdered By: Rory Rosas on 01-30-2023 aPTT Coag (PPP) [Time] 32.4 s 25.1-36.5 [facility] Basophils Auto (Bld) [#/Vol] Ordered By: Rory Rosas on 01-30-2023 Basophils (Bld) [#/Vol] 0.0 10*3/uL 0.0-0.2 [facility] Basophils/100 WBC Auto (Bld) Ordered By: Rory Rosas on 01-30-2023 Basophils/100 WBC (Bld) 0.9 % . [facility] Blood Urea Nitrogenon 2022 Urea nitrogen [Mass/Vol] 16 mg/dL Normal 7-25 [facility] Comment on above: Performed By: #### C REAT, LYTES, LIPID, BUN, CBC, PP #### [address] Carbon dioxide, total [Moles /volume] in Serum or PlasmaOrdered By: Rory Rosas on 01-30-2023 CO2 [Moles/Vol] 31.4 mmol/L 21.0-31.0 [facility] Chloride [Moles/volume] in S maylin or PlasmaOrdered By: Rory Rosas on 01-30-2023 Chloride [Moles/Vol] 99 mmol/L 98-107 [facility] Cholesterol [Mass/volume] in Serum or PlasmaOrdered By: Rory Rosas on 01-30-2023 Cholesterol [Mass/Vol] 143 mg/dL 140-200 [facility] Comment on above: Chol less than 200 m g/dl low riskChol 201-239 mg/dl borderline riskChol 240 mg/dl and greater high risk Cholesterol in LDL Calc [Mas s/Vol]Ordered By: Rory Rosas on 01-30-2023 Cholesterol in LDL [Mass/Vol] 63 mg/dL 0-100 [facility] Comment on above: LDL ATP III CLASSIFI CATIONLDL less than 100 mg/dL OptimalLDL 100-129 mg/dL Near or above optimalLDL 130-159 mg/dL Borderline highLDL 160-189 mg/dL HighLDL greater than 189 mg/dL Very high Cholesterol in VLDL Calc [Ma ss/Vol]Ordered By: Rory Rosas on 01-30-2023 Cholesterol in VLDL [Mass/Vol] 14 mg/dL [facility] Coagulation Profileon 2022 aPTT Coag (Bld) [Time] 32.4 s Normal 25.1-36.5 [facility] Comment on above: Result Comment: PERF ORMED BY: [place] [address] PATHOLOGIST [employer] TIM CHRISTIAN M.D. Performed By: #### C REAT, LYTES, LIPID, BUN, CBC, PP #### [facility] [address] INR Coag (PPP) [Relative time] 1.1 {INR} Normal [facility] Comment on above: Result Comment: INR Therapeutic Range A) Pre- and Peroperative OAT started two weeks before surgery. NOT HIP SURGERY: 1.5 - 2.5 HIP SURGERY: 2 - 3 B) Primary and secondary prevention of venous THROMBOSIS: 2 - 3 C) Active venous thrombosis, pulmonary embolism and prevention of recurrent venous thrombosis: 2 - 3 D) Prevention of arterial thromboembolism including patients with mechanical heart valves: 3 - 4.5 Performed By: #### C REAT, LYTES, LIPID, BUN, CBC, PP #### [facility] [address] PT Coag (PPP) [Time] 13.0 s High 9.0-12.9 [facility] Comment on above: Performed By: #### C REAT, LYTES, LIPID, BUN, CBC, PP #### [facility] [address] Complete Blood Count Auto Di ffon 01-30-2023 Basophils (Bld) [#/Vol] 0.0 10*3/uL Normal 0.0-0.2 [facility] Comment on above: Result Comment: PERF ORMED BY: [facility] [address] [facility] [place] [address] PATHOLOGIST [employer] JIANLAN SUN M.D. Performed By: #### C REAT, LYTES, LIPID, BUN, CBC, PP #### [facility] [address] Basophils/100 WBC (Bld) 0.9 % Normal . [facility] Comment on above: Performed By: #### C REAT, LYTES, LIPID, BUN, CBC, PP #### [address] Eosinophils (Bld) [#/Vol] 0.2 10*3/uL Normal 0.0-0.45 [facility] Comment on above: Performed By: #### C REAT, LYTES, LIPID, BUN, CBC, PP #### [address] Eosinophils/100 WBC (Bld) 3.9 % Normal . [facility] Comment on above: Performed By: #### C REAT, LYTES, LIPID, BUN, CBC, PP #### [address] Erythrocyte distribution wid th (RBC) [Ratio] 13.5 % Normal 11.9-15.3 [facility] Comment on above: Performed By: #### C REAT, LYTES, LIPID, BUN, CBC, PP #### [address] Hematocrit (Bld) [Volume fraction] 38.6 % Normal 34.0-46.4 [facility] Comment on above: Performed By: #### C REAT, LYTES, LIPID, BUN, CBC, PP #### [address] Hemoglobin (Bld) [Mass/Vol] 12.9 g/dL Normal 11.8-15. 4 [facility] Comment on above: Performed By: #### C REAT, LYTES, LIPID, BUN, CBC, PP #### [address] Lymphocytes (Bld) [#/Vol] 1.1 10*3/uL Normal 1.00-4.8 [facility] Comment on above: Performed By: #### C REAT, LYTES, LIPID, BUN, CBC, PP #### [address] Lymphocytes/100 WBC (Bld) 23.9 % Normal . [facility] Comment on above: Performed By: #### C REAT, LYTES, LIPID, BUN, CBC, PP #### [address] MCH (RBC) [Entitic mass] 28.6 pg Normal 24.7-34.3 [facility] Comment on above: Performed By: #### C REAT, LYTES, LIPID, BUN, CBC, PP #### [address] MCV (RBC) [Entitic vol] 85.5 fL Normal 80-100 [facility] Comment on above: Performed By: #### C REAT, LYTES, LIPID, BUN, CBC, PP #### [address] Mean Corpuscular HGB Conc 33.5 g/dL Normal 32.0-35.0 [facility] Comment on above: Performed By: #### C REAT, LYTES, LIPID, BUN, CBC, PP #### [address] Monocytes (Bld) [#/Vol] 0.3 10*3/uL Normal 0.0-0.8 [facility] Comment on above: Performed By: #### C REAT, LYTES, LIPID, BUN, CBC, PP #### [address] Monocytes/100 WBC (Bld) 7.4 % Normal . [facility] Comment on above: Performed By: #### C REAT, LYTES, LIPID, BUN, CBC, PP #### [address] Neutrophils (Bld) [#/Vol] 3.0 10*3/uL Normal 1.8-7.7 [facility] Comment on above: Performed By: #### C REAT, LYTES, LIPID, BUN, CBC, PP #### [facility] [address] Neutrophils/100 WBC (Bld) 63.9 % Normal . [facility] Comment on above: Performed By: #### C REAT, LYTES, LIPID, BUN, CBC, PP #### [address] NRBC% 0.1 /100{WBC} Normal 0-0.5 [facility] Comment on above: Performed By: #### C REAT, LYTES, LIPID, BUN, CBC, PP #### [address] Platelet mean volume (Bld) [Entitic vol] 7.3 fL Normal 6.3-10.7 [facility] Comment on above: Performed By: #### C REAT, LYTES, LIPID, BUN, CBC, PP #### [address] Platelets (Bld) [#/Vol] 199 10*3/uL Normal 150-450 [facility] Comment on above: Performed By: #### C REAT, LYTES, LIPID, BUN, CBC, PP #### [address] RBC (Bld) [#/Vol] 4.52 10*6/uL Normal 3.60-5.00 [facility] Comment on above: Performed By: #### C REAT, LYTES, LIPID, BUN, CBC, PP #### [address] WBC (Bld) [#/Vol] 4.7 10*3/uL Normal 3.8-11.6 [facility] Comment on above: Performed By: #### C REAT, LYTES, LIPID, BUN, CBC, PP #### [address] Creatinineon 01-30-2023 Creatinine [Mass/Vol] 0.73 mg/dL Normal 0.60-1.20 [facility] Comment on above: Performed By: #### C REAT, LYTES, LIPID, BUN, CBC, PP #### [facility] [address] GFR/1.73 sq M.predicted MDRD (S/P/Bld) [Vol rate/Area] mL/min/{1.73_m2} Normal [facility] Comment on above: Performed By: #### C REAT, LYTES, LIPID, BUN, CBC, PP #### [facility] [address] Creatinine [Mass/volume] in Serum or PlasmaOrdered By: Rory Rosas on 01-30-2023 Creatinine [Mass/Vol] 0.73 mg/dL 0.60-1.20 [facility] ECG 12 lead ECGon 01-30-2023 ECG 12 lead ECG [facility] Main [place] [address] [place] [address] Electrocardiograph Report Signed Patient: Maritza Vicente MR#: [id number] [birth year] : 1940 Acct:[id number] Age/Sex: 82 / F ADM Date: 01/30/23 Loc: Room: Type: [facility] Attending Dr: Rory Rosas MD Ordering Provider: Rory Rosas MD Date of Service: 01/30/23 ECG/ECG 12 lead ECG: pre op Copies to: Test Reason : Blood Pressure : / mmHG Vent. Rate : 057 BPM Atrial Rate : 057 BPM P-R Int : 158 ms QRS Dur : 082 ms QT Int : 386 ms P-R-T Axes : 069 072 070 degrees QTc Int : 375 ms Sinus bradycardia Nonspecific ST abnormality When compared with ECG of 12-DEC-2022 13:25, No significant change was found Confirmed by RELL GOODRICH MD ([id number]) on 01/30/2023 8:53:02 PM Referred By: DR ROSAS Electronically Signed By:RELL GOODRICH MD Transcribed By: MUS Signed By Rell Goodrich MD 0 01/30/232052 Normal [facility] Electrolyteson 01-30-2023 Anion gap [Moles/Vol] 10.5 mmol/L Normal 6.0-15.0 [facility] Comment on above: Performed By: #### C REAT, LYTES, LIPID, BUN, CBC, PP #### [facility] [address] Chloride [Moles/Vol] 99 mmol/L Normal 98-107 [facility] Comment on above: Performed By: #### C REAT, LYTES, LIPID, BUN, CBC, PP #### [facility] [address] CO2 [Moles/Vol] 31.4 mmol/L High 21.0-31.0 [facility] Comment on above: Performed By: #### C REAT, LYTES, LIPID, BUN, CBC, PP #### [facility] [address] Potassium [Moles/Vol] 3.9 mmol/L Normal 3.5-5.1 [facility] Comment on above: Performed By: #### C REAT, LYTES, LIPID, BUN, CBC, PP #### [facility] [address] Sodium [Moles/Vol] 137 mmol/L Normal 136-145 [facility] Comment on above: Performed By: #### C REAT, LYTES, LIPID, BUN, CBC, PP #### [facility] [address] [place] [address] [place] Eosinophils Auto (Bld) [#/Vo l]Ordered By: Rory Rosas on 01-30-2023 Eosinophils (Bld) [#/Vol] 0.2 10*3/uL 0.0-0.45 [facility] Eosinophils/100 WBC Auto (Bl d)Ordered By: Rory Rosas on 01-30-2023 Eosinophils/100 WBC (Bld) 3.9 % . [facility] Erythrocyte distribution wid th Auto (RBC) [Ratio]Ordered By: Rory Rosas on 01-30-2023 Erythrocyte distribution wid th (RBC) [Ratio] 13.5 % 11.9-15.3 [facility] Hematocrit Auto (Bld) [Volum e fraction]Ordered By: Rory Rosas on 01-30-2023 Hematocrit (Bld) [Volume fraction] 38.6 % 3 4.0-46.4 [facility] Hemoglobin [Mass/volume] in BloodOrdered By: Rory Rosas on 01-30-2023 Hemoglobin (Bld) [Mass/Vol] 12.9 g/dL 11.8-15. 4 [facility] Laboratory - Chemistry and C hemistry - challengeon 01-30-2023 Cholesterol [Mass/Vol] 143\S\143 Normal 140-200 [facility] 250 DO Work Phone: Comment on above: Chol less than 200 m g/dl low risk Chol 201-239 mg/dl borderline risk Chol 240 mg/dl and greater high risk Cholesterol in LDL [Mass/Vol] 63\S\63 Normal 0-100 [facility] 250 DO Work Phone: Comment on above: LDL ATP III CLASSIFI CATION LDL less than 100 mg/dL Optimal LDL 100-129 mg/dL Near or above optimal LDL 130-159 mg/dL Borderline high LDL 160-189 mg/dL High LDL greater than 189 mg/dL Very high Laboratory - CoagulationOrde red By: Rory Rosas on 01-30-2023 PT Coag (PPP) [Time] 13.0 s 9.0-12.9 [facility] Leukocytes [#/volume] correc ryanne for nucleated erythrocytes in Blood by Automated counOrdered By: Rory Rosas on 01-30-2023 WBC corrected for nucl RBC A uto (Bld) [#/Vol] 4.7 10*3/uL 3.8-11.6 [facility] Lipid Panelon 01-30-2023 Cholesterol [Mass/Vol] 143 mg/dL Normal 140-200 [facility] Comment on above: Result Comment: Chol less than 200 mg/dl low risk Chol 201-239 mg/dl borderline risk Chol 240 mg/dl and greater high risk Performed By: #### C REAT, LYTES, LIPID, BUN, CBC, PP #### [facility] [address] Cholesterol in HDL [Mass/Vol] 66 mg/dL Normal 35-85 [facility] Comment on above: Result Comment: HDL CHOL ATP-III CLASSIFICATION Cardiovascular Risk HDL > or equal to 60 mg/dL LOW HDL < 40 mg/dL HIGH Performed By: #### C REAT, LYTES, LIPID, BUN, CBC, PP #### [facility] [address] Cholesterol.total/Cholestero l in HDL [Mass ratio] 2.2 {ratio} Normal <5.0 [facility] Comment on above: Result Comment: PERF ORMED BY: [place] [address] PATHOLOGIST [employer] TIM CHRISTIAN M.D. Performed By: #### C REAT, LYTES, LIPID, BUN, CBC, PP #### [address] LDL Cholesterol,Calculated 63 mg/dL Normal 0-100 [facility] Comment on above: Result Comment: LDL ATP III CLASSIFICATION LDL less than 100 mg/dL Optimal LDL 100-129 mg/dL Near or above optimal LDL 130-159 mg/dL Borderline high LDL 160-189 mg/dL High LDL greater than 189 mg/dL Very high Performed By: #### C REAT, LYTES, LIPID, BUN, CBC, PP #### [facility] [address] Triglyceride w/Reflex 70 mg/dL Normal 0-149 [facility] Comment on above: Result Comment: TRIG ATP III CLASSIFICATION TRIG less than 150 mg/dL Normal TRIG 150-199 mg/dL Borderline high TRIG 200-500 mg/dL High TRIG greater than 500 mg/dL Very high Standard traceable to the Center for Disease Conrtrol and Prevention (CDC) test method. Performed By: #### C REAT, LYTES, LIPID, BUN, CBC, PP #### [facility] [address] VLDL CHOLESTEROL 14 mg/dL Normal [facility] Comment on above: Performed By: #### C REATDIAN, LIPID, BUN, CBC, PP #### [facility] [address] Lymphocytes Auto (Bld) [#/Vo l]Ordered By: Rory Rosas on 01-30-2023 Lymphocytes (Bld) [#/Vol] 1.1 10*3/uL 1.00-4.8 [facility] Lymphocytes/100 WBC Auto (Bl d)Ordered By: Rory Rosas on 01-30-2023 Lymphocytes/100 WBC (Bld) 23.9 % . [facility] MCH Auto (RBC) [Entitic mass ]Ordered By: Rory Rosas on 01-30-2023 MCH (RBC) [Entitic mass] 28.6 pg 24.7-34.3 [facility] MCHC Auto (RBC) [Mass/Vol]Or dered By: Rory Rosas on 01-30-2023 MCHC (RBC) [Mass/Vol] 33.5 g/dL 32.0-35.0 [facility] MCV Auto (RBC) [Entitic vol] Ordered By: Rory Rosas on 01-30-2023 MCV (RBC) [Entitic vol] 85.5 fL 80-100 [facility] Monocytes Auto (Bld) [#/Vol] Ordered By: Rory Rosas on 01-30-2023 Monocytes (Bld) [#/Vol] 0.3 10*3/uL 0.0-0.8 [facility] Monocytes/100 WBC Auto (Bld) Ordered By: Rory Rosas on 01-30-2023 Monocytes/100 WBC (Bld) 7.4 % . [facility] Neutrophils Auto (Bld) [#/Vo l]Ordered By: Rory Rosas on 01-30-2023 Neutrophils (Bld) [#/Vol] 3.0 10*3/uL 1.8-7.7 [facility] Neutrophils/100 WBC Auto (Bl d)Ordered By: Rory Rosas on 01-30-2023 Neutrophils/100 WBC (Bld) 63.9 % . [facility] No Panel InformationOrdered By: Rory Rosas on 01-30-2023 Estimated GFR (CKD-EPI) > 60.0 mL/Min [facility] Creatinine Clearanc e (Chem N/A [facility] No Panel Informationon 01-30 66\S\66 Normal 35-85 [facility] 250 DO Work Phone: Comment on above: HDL CHOL ATP-III CLA SSIFICATION Cardiovascular Risk HDL > or equal to 60 mg/dL LOW HDL < 40 mg/dL HIGH 70\S\70 Normal 0-149 [facility] 250 DO Work Phone: Comment on above: TRIG ATP III CLASSIF ICATION TRIG less than 150 mg/dL Normal TRIG 150-199 mg/dL Borderline high TRIG 200-500 mg/dL High TRIG greater than 500 mg/dL Very high Standard traceable to the Center for Disease Conrtrol and Prevention (CDC) test method. 14\S\[address] [facility] 250 DO Work Phone: 2.2\S\2.2 Normal <5.0 [facility] 250 DO Work Phone: Comment on above: PERFORMED BY:[place] [address] [address] [place], [place] [id number] MEDICAL DIRECTORTIM CHRISTIAN M.D. 0.73\S\0.73 Normal 0.60-1.20 [facility] 250 DO Work Phone: > 60.[address] [facility] 250 DO Work Phone: 16\S\16 Normal 7-25 [facility] 250 DO Work Phone: 10.5\S\10.5 Normal 6.0-15.0 [facility] 250 DO Work Phone: 137\S\137 Normal 136-145 [facility] 250 DO Work Phone: 3.9\S\3.[address] [facility] 250 DO Work Phone: 99\S\99 Normal 98-107 [facility] 250 DO Work Phone: 31.4\S\31.4 above high threshold 21.0-31.0 [facility] 250 DO Work Phone: 13.0\S\13.0 above high threshold 9.0-12.9 [facility] 250 DO Work Phone: 1.1\S\1.1 Normal 1.00-4.8 [facility] 250 DO Work Phone: Comment on above: INR Therapeutic Rang e A) Pre- and Peroperative OAT started two weeks before surgery. NOT HIP SURGERY: 1.5 - 2.5 HIP SURGERY: 2 - 3 B) Primary and secondary prevention of venous THROMBOSIS: 2 - 3 C) Active venous thrombosis, pulmonary embolism and prevention of recurrent venous thrombosis: 2 - 3 D) Prevention of arterial thromboembolism including patients with mechanical heart valves: 3 - 4.5 32.4\S\32.4 Normal 25.1-36.5 [facility] 250 DO Work Phone: Comment on above: PERFORMED BY:[place] [address] [place], [place] [id number] MEDICAL DIRECTORVANESSAST. MARY'S HOSPITAL ANAHI Fields 0.0\S\0.0 Normal 0.0-0.2 [facility] 250 DO Work Phone: Comment on above: PERFORMED BY:[place] [address] [place] [place], [place] [phone] [facility] M.Justin 0.2\S\0.2 Normal 0.0-0.45 [facility] 250 DO Work Phone: 0.3\S\0.3 Normal 0.0-0.8 [facility] 250 DO Work Phone: 3.0\S\3.0 Normal 1.8-7.7 -[facility] 250 DO Work Phone: 0.1\S\0.1 Normal 0-0.5 [facility] 250 DO Work Phone: 0.9\S\0.[address] [facility] 250 DO Work Phone: 7.4\S\7.[address] [facility] 250 DO Work Phone: 23.9\S\23.[address] [facility] 250 DO Work Phone: 63.9\S\63.[address] [facility] 250 DO Work Phone: 7.3\S\7.3 Normal 6.3-10.7 [facility] 250 DO Work Phone: 199\S\199 Normal 150-450 [facility] 250 DO Work Phone: 13.5\S\13.5 Normal 11.9-15.3 [facility] 250 DO Work Phone: 33.5\S\33.5 Normal 32.0-35.0 [facility] 250 DO Work Phone: 28.6\S\28.6 Normal 24.7-34.3 [facility] 250 DO Work Phone: 85.5\S\85.5 Normal 80-100 [facility] 250 DO Work Phone: 38.6\S\38.6 Normal 34.0-46.4 [facility] 250 DO Work Phone: 12.9\S\12.9 Normal 11.8-15.4 -[facility] 250 DO Work Phone: 4.52\S\4.52 Normal 3.60-5.00 -[facility] 250 DO Work Phone: 4.7\S\4.7 Normal 3.8-11.6 -[facility] 250 DO Work Phone: Nucleated erythrocytes [Pres ence] in Blood by Automated countOrdered By: Rory Rosas on 01-30-2023 Nucleated RBC Auto Ql (Bld) 0.1 /100{WBC} 0-0.5 [facility] Platelet mean volume Auto (B ld) [Entitic vol]Ordered By: Rory Rosas on 01-30-2023 Platelet mean volume (Bld) [Entitic vol] 7.3 fL 6.3-10.7 [facility] Platelet poor plasma interna tional normalized ratio (INR) by coagulation assay (relatOrdered By: Rory Rosas on 01-30-2023 INR Coag (PPP) [Relative time] 1.1 {INR} [facility] Comment on above: INR Therapeutic Rang e A) Pre- and Peroperative OAT started two weeks before surgery. NOT HIP SURGERY: 1.5 - 2.5 HIP SURGERY: 2 - 3B) Primary and secondary prevention of venous THROMBOSIS: 2 - 3C) Active venous thrombosis, pulmonary embolismand prevention of recurrent venous thrombosis: 2 - 3D) Prevention of arterial thromboembolismincluding patients with mechanical heart valves: 3 - 4.5 Platelets Auto (Bld) [#/Vol] Ordered By: Rory Rosas on 01-30-2023 Platelets (Bld) [#/Vol] 199 10*3/uL 150-450 [facility] Potassium [Moles/volume] in Serum or PlasmaOrdered By: Rory Rosas on 01-30-2023 Potassium [Moles/Vol] 3.9 mmol/L 3.5-5.1 [facility] RBC Auto (Bld) [#/Vol]Ordere d By: Rory Rosas on 01-30-2023 RBC (Bld) [#/Vol] 4.52 10*6/uL 3.60-5.00 [facility] Serum or plasma anion gap de terminationOrdered By: Rory Rosas on 01-30-2023 Anion gap [Moles/Vol] 10.5 mmol/L 6.0-15.0 [facility] Serum or plasma high density lipoprotein (HDL) cholesterol measurementOrdered By: Rory Rosas on 01-30-2023 Cholesterol in HDL [Mass/Vol] 66 mg/dL 35-85 [facility] Comment on above: HDL CHOL ATP-III CLA SSIFICATION Cardiovascular RiskHDL > or equal to 60 mg/dL LOWHDL < 40 mg/dL HIGH Serum or plasma total choles terol/high density lipoprotein (HDL) cholesterol mass ratOrdered By: Rory Rosas on 01-30-2023 Cholesterol.total/Cholestero l in HDL [Mass ratio] 2.2 {ratio} <5.0 [facility] Sodium [Moles/volume] in Ser um or PlasmaOrdered By: Rory Rosas on 01-30-2023 Sodium [Moles/Vol] 137 mmol/L 136-145 [facility] Triglyceride [Mass/volume] i n Serum or PlasmaOrdered By: Rory Rosas on 01-30-2023 Triglyceride [Mass/Vol] 70 mg/dL 0-149 [facility] Comment on above: TRIG ATP III CLASSIF ICATIONTRIG less than 150 mg/dL NormalTRIG 150-199 mg/dL Borderline highTRIG 200-500 mg/dL High TRIG greater than 500 mg/dL Very highStandard traceable to the Center for Disease Conrtrol and Prevention (CDC) test method. Urea nitrogen [Mass/volume] in Serum or PlasmaOrdered By: Rory Rosas on 01-30-2023 Urea nitrogen [Mass/Vol] 16 mg/dL 7-25 [facility] WBC Auto (Bld) [#/Vol]Ordere d By: Rory Rosas on 01-30-2023 WBC (Bld) [#/Vol] 4.7 10*3/uL 3.8-11.6 [facility] Coding Summary.on 01-28-2023 Coding Summary. [id number] [file] [id number] (more content not included)... Normal [facility] CHEMISTRYOrdered By: SYSTEM SYSTEM on 01-25-2023 Albumin [Mass/Vol] 4.0 g/dL Normal 3.3 - 5.0 gm/dL [facility] Remisol Albumin/Globulin [Mass ratio] 1.7 {ratio} Normal 1.1 - 2.2 [facility] Remisol ALP [Catalytic activity/Vol] 38 [iU]/d Normal 21 - 98 Int._Unit/L [facility] Remisol ALT No additional P-5'-P [Catalytic activity/Vol] 20 [iU]/d Normal 6 - 46 Int._Unit/L [facility] Anion gap [Moles/Vol] 13 mmol/L Normal 6 - 16 mEq/L [facility] Rem[facility] AST [Catalytic activity/Vol] 22 [iU]/d Normal 5 - 43 Int._Unit/L [facility] Bilirubin [Mass/Vol] 0.6 mg/dL Normal 0.0 - 1.1 mg/dL [facility] Calcium [Mass/Vol] 9.9 mg/dL Normal 8.9 - 11.1 mg/dL [facility] Chloride [Moles/Vol] 91 mmol/L Low 101 - 111 mmol/ L [facility] CO2 [Moles/Vol] 32 mmol/L High 21 - 31 mmol/L [facility] Creatinine [Mass/Vol] 0.7 mg/dL Normal 0.5 - 1.3 mg/d L [facility] Remisol GFR/1.73 sq M.predicted di g blacks MDRD (S/P/Bld) [Vol rate/Area] mL/min/1.73 m2 Normal >=59mL/min/1.73 m2 FT Chem S GFR/1.73 sq M.predicted di g non-blacks MDRD (S/P/Bld) [Vol rate/Area] mL/min/1.73 m2 Normal >=59mL/min/1.73 m2 [facility] Chem S Globulin (S) [Mass/Vol] 2.4 g/dL Normal 1.4 - 4.0 gm /dL [facility] Remisol Glucose [Mass/Vol] 150 mg/dL Normal 55 - 199 mg/dL [facility] Remisol Potassium [Moles/Vol] 4.0 mmol/L Normal 3.5 - 5.3 mmol /L [facility] Remisol Protein [Mass/Vol] 6.4 g/dL Normal 6.0 - 7.8 gm/dL [facility] Remisol Sodium [Moles/Vol] 132 mmol/L Low 135 - 145 mmol/L [facility] Remisol Urea nitrogen [Mass/Vol] 17 mg/dL Normal 5 - 21 mg/d L [facility] Remisol Urea nitrogen/Creatinine [Ma ss ratio] 24 mg/mg High 10 - [facility] Remisol CMPon 01-25-2023 Albumin [Mass/Vol] 4.0 g/dL Normal 3.3-5.0 [facility] Comment on above: Performed By: #### 2 [id number] ####[facility] [id number] [place] [address] Albumin/Globulin (S) [Mass conc ratio] 1.7 Normal 1.1-2.2 [facility] Comment on above: Performed By: #### 2 [id number] ####[facility] [address] [place] [address] ALP [Catalytic activity/Vol] 38 Int._Unit/L Normal 21- 98 [facility] Comment on above: Performed By: #### 2 [id number], [id number] ####[facility] [address] [place] [address] ALT No additional P-5'-P [Catalytic activity/Vol] 20 Int._Unit/L Normal 6-46 [facility] Comment on above: Performed By: #### 2 [id number], [id number] ####[facility] [address] [place] [address] Anion gap [Moles/Vol] 13 mmol/L Normal 6-16 [facility] Comment on above: Performed By: #### 2 243957, [id number] ####[facility] [address] [place] [address] AST [Catalytic activity/Vol] 22 Int._Unit/L Normal 5-4 3 [facility] Comment on above: Performed By: #### 2 241963, [id number] ####[facility] [address] [place] [address] Bilirubin [Mass/Vol] 0.6 mg/dL Normal 0.0-1.1 [facility] Comment on above: Performed By: #### 2 130210, 73967538 ####[address] [place] [address] Calcium [Mass/Vol] 9.9 mg/dL Normal 8.9-11.1 [facility] Comment on above: Performed By: #### 2 699885, 05576012 ####[address] [address] Chloride [Moles/Vol] 91 mmol/L Low 101-111 [facility] Comment on above: Performed By: #### 2 986714, 30578426 ####[facility] [address] [place] [address] CO2 [Moles/Vol] 32 mmol/L High 21-31 [facility] Comment on above: Performed By: #### 2 539419, 71762662 ####[facility] [address] [place] [address] Creatinine [Mass/Vol] 0.7 mg/dL Normal 0.5-1.3 [facility] Comment on above: Performed By: #### 2 300199, 50620266 ####[facility] [address] [place] [address] Globulin (S) [Mass/Vol] 2.4 g/dL Normal 1.4-4.0 [facility] Comment on above: Performed By: #### 2 606949, 32774413 ####[facility] [address] [place] [address] Glucose [Mass/Vol] 150 mg/dL Normal 55-199 [facility] Comment on above: Result Comment: If t his glucose result represents a fasting glucose, interpretation should refer to the following reference range: 55-99 mg/dL Performed By: #### 2 181989, 68569769 ####[facility] [address] [place] [address] Potassium [Moles/Vol] 4.0 mmol/L Normal 3.5-5.3 [facility] Comment on above: Performed By: #### 2 135358, 36756857 ####[facility] [address] [place] [address] Protein [Mass/Vol] 6.4 g/dL Normal 6.0-7.8 [facility] Comment on above: Performed By: #### 2 221280, 94907603 ####[facility] [address] [place] [address] Sodium [Moles/Vol] 132 mmol/L Low 135-145 [facility] Comment on above: Performed By: #### 2 842566, 43372922 ####[facility] [address] [place] [address] Urea nitrogen [Mass/Vol] 17 mg/dL Normal 5-21 [facility] Comment on above: Performed By: #### 2 888628, 37957754 ####[facility] [address] [place] [address] Urea nitrogen/Creatinine [Mass ratio] 24 No Units High 10-20 [facility] Comment on above: Performed By: #### 2 523800, 33250833 ####[facility] [address] [place] [address] Physician Orderon 01-25-2023 Physician Order [id number]#1.00CD:127 Normal [facility] eGFRon 01-25-2023 GFR/1.73 sq M.predicted di g blacks MDRD (S/P/Bld) [Vol rate/Area] mL/min/{1.73_m2} Normal >=[address] [facility] Comment on above: Order Comment: Order added by Discern Expert. Result Comment: eGFR is race adjusted. AA=. Performed By: #### 2 886438, [id number] ####[facility] [address] [place] [address] GFR/1.73 sq M.predicted di g non-blacks MDRD (S/P/Bld) [Vol rate/Area] mL/min/{1.73_m2} Normal >=[address] [facility] Comment on above: Order Comment: Order added by Discern Expert. Result Comment: Certified Indoor Environmentalist nahum kidney disease could be indicated at eGFR's of less than 60 mL/min/1.73m2. Kidney failure is indicated at less than 15 mL/min/1.73m2. Performed By: #### 2 275322, [id number] ####[facility] [address] [place] [address] Auto Diffon 01-23-2023 Basophils/100 WBC (Bld) 0.8 % Normal 0.0-2.0 [facility] Comment on above: Order Comment: Order Added by Discern Expert. Performed By: #### 5 [id number], 55899603, 7592054, 5184377, 9082621, 2598938, 6862543, 4681318, 5322935, 5103981, 1260887 ####[facility] [address] [place] [address] Basophils/Leukocytes Auto (B ld) [Pure # fraction] 0.0 E9/L Normal 0.0-0.2 [facility] Comment on above: Order Comment: Order Added by Discern Expert. Performed By: #### 5 83071169, 61391294, 1253879, 2358727, 0018300, 7025447, 5210047, 4074734, 1925180, 8451553, 3987542 ####[facility] [address] [place] [address] Eosinophils/100 WBC (Bld) 2.9 % Normal 0.0-8.0 [facility] Comment on above: Order Comment: Order Added by Discern Expert. Performed By: #### 5 90844996, 76297381, 6059905, 4825648, 3621846, 4544438, 1555679, 9877484, 6348093, 5631139, 6298187 ####[facility] [address] [place] [address] Eosinophils/Leukocytes Auto (Bld) [Pure # fraction] 0.2 E9/L Normal 0.0-0.5 [facility] Comment on above: Order Comment: Order Added by Discern Expert. Performed By: #### 5 76249080, 11701326, 8363218, 8037096, 7768268, 5131936, 8111980, 6555454, 9553850, 4979914, 9948029 ####[address] [address] Lymphocytes/100 WBC (Bld) 23.9 % Normal 14.0-50.0 [facility] Comment on above: Order Comment: Order Added by Discern Expert. Performed By: #### 5 64190359, 30247430, 2462113, 2533481, 4140844, 4863471, 0426443, 6093223, 3275625, 2477257, 6354310 ####[address] [address] Lymphocytes/Leukocytes Auto (Bld) [Pure # fraction] 1.4 E9/L Normal 1.0-4.0 [facility] Comment on above: Order Comment: Order Added by Discern Expert. Performed By: #### 5 02713343, 82927735, 8764455, 0078605, 1492353, 0148920, 4701734, 8546232, 3571928, 9925825, 6320996 ####[address] [place] [address] Monocytes/100 WBC (Bld) 8.9 % Normal 4.0-14.0 [facility] Comment on above: Order Comment: Order Added by Discern Expert. Performed By: #### 5 27398360, 36923283, 8286088, 3611225, 5587371, 5605060, 4371282, 6688264, 4559947, 7633130, 9344354 ####[facility] [address] [place] [address] Monocytes/Leukocytes Auto (B ld) [Pure # fraction] 0.5 E9/L Normal 0.2-1.0 [facility] Comment on above: Order Comment: Order Added by Discern Expert. Performed By: #### 5 57681786, 45815453, 8195704, 6606859, 1334519, 8185681, 8956008, 2464779, 2929552, 4190702, 5990811 ####[address] [address] Neutrophils/100 WBC (Bld) 63.5 % Normal 36.0-75.0 [facility] Comment on above: Order Comment: Order Added by Discern Expert. Performed By: #### 5 50288667, 37774305, 9177333, 8418445, 1314585, 6062490, 4881241, 0161040, 4299073, 7429419, 4677449 ####[address] [address] Neutrophils/Leukocytes Auto (Bld) [Pure # fraction] 3.7 E9/L Normal 2.0-7.5 [facility] Comment on above: Order Comment: Order Added by Discern Expert. Performed By: #### 5 50012812, 30934166, 7201454, 4726517, 0718930, 0391663, 9298165, 4064730, 3194995, 6756953, 8629760 ####[address] [address] CBC w/ Auto Diffon 3 Erythrocyte distribution wid th (RBC) [Ratio] 13.4 % Normal 10.9-14.2 [facility] Comment on above: Performed By: #### 5 92352037, 18711472, 1879079, 2867034, 4801991, 4050962, 0732789, 3663248, 5121444, 3957907, 6832535 ####[address] [place] [address] Hematocrit (Bld) [Volume fraction] 39.8 % Normal 34.0-46.0 [facility] Comment on above: Performed By: #### 5 84846437, 19298554, 1110508, 2208242, 8376897, 1413779, 8394779, 6192476, 2062516, 8667643, 3723097 ####[address] [place] [address] Hemoglobin (Bld) [Mass/Vol] 13.1 g/dL Normal 12.0-16. 0 [facility] Comment on above: Performed By: #### 5 76618287, 10252768, 3045480, 3771574, 9546612, 1070960, 2472087, 5914375, 9433177, 4463910, 4681258 ####[address] [address] MCH (RBC) [Entitic mass] 28.0 pg Normal 27.0-34.0 [facility] Comment on above: Performed By: #### 5 09366234, 38827074, 3400045, 4959890, 7449302, 1281564, 6972537, 3344283, 2150266, 0322562, 7023798 ####[address] [place] [address] MCHC (RBC) [Mass/Vol] 32.8 g/dL Normal 31.4-36.0 [facility] Comment on above: Performed By: #### 5 60632562, 73591569, 9259234, 7462332, 3498833, 9483381, 9696695, 6439758, 2184035, 6040703, 7215172 ####[address] [address] MCV (RBC) [Entitic vol] 85.3 fL Normal 80.0-100.0 [facility] Comment on above: Performed By: #### 5 68807206, 44988689, 1928300, 5289387, 0097177, 5478520, 3025187, 1384905, 7740754, 5286484, 2238620 ####[facility] [address] [place] [address] Platelet mean volume (Bld) [Entitic vol] 8.1 fL Normal 6.4-10.8 [facility] Comment on above: Performed By: #### 5 61060729, 19949740, 8590868, 0251042, 1595164, 2545673, 5325430, 0270468, 6298608, 3080509, 4663427 ####[facility] [address] [place] [address] Platelets (Bld) [#/Vol] 259.0 E9/L Normal 150.0-500.0 [facility] Comment on above: Performed By: #### 5 99768408, 12325219, 3674301, 6581363, 6676543, 3551812, 2152299, 4968195, 7449811, 1710322, 0298109 ####[facility] [address] [place] [address] RBC (Bld) [#/Vol] 4.7 E12/L Normal 4.3-5.9 [facility] Comment on above: Performed By: #### 5 56484664, 56528724, 9165807, 8861233, 6620648, 2122377, 7846361, 3386185, 2075766, 1938627, 4449219 ####[facility] [address] [place] [address] WBC corrected for nucl RBC A uto (Bld) [#/Vol] 5.9 E9/L Normal 4.0-11.0 [facility] Comment on above: Result Comment: Slid e reviewed by ts . Performed By: #### 5 53343056, 35365577, 6202241, 9515474, 9828961, 4117369, 4909321, 6564067, 5889329, 6885104, 9099691 ####[address] [place] [address] CMPon 01-23-2023 Albumin [Mass/Vol] 4.1 g/dL Normal 3.3-5.0 [facility] Comment on above: Performed By: #### 5 62088064, 45108482, 4806989, 4675081, 9937424, 6659648, 6207687, 8809912, 8242758, 4330525, 5066664 ####[address] [place] [address] Albumin/Globulin (S) [Mass conc ratio] 1.7 Normal 1.1-2.2 [facility] Comment on above: Performed By: #### 5 50671307, 64461500, 2345674, 8169337, 2063583, 0364311, 3987308, 0824372, 8447574, 5952985, 5228738 ####[address] [address] ALP [Catalytic activity/Vol] 39 Int._Unit/L Normal 21- 98 [facility] Comment on above: Performed By: #### 5 11351244, 84409583, 3374628, 9374872, 0860058, 7879417, 4319610, 2184110, 9260786, 3252679, 5119656 ####[address] [place] [address] ALT No additional P-5'-P [Catalytic activity/Vol] 19 Int._Unit/L Normal 6-46 [facility] Comment on above: Performed By: #### 5 47607260, 38562203, 9258716, 5458076, 1763585, 4694160, 1394424, 8671798, 4007425, 0888104, 8106884 ####[address] [address] Anion gap [Moles/Vol] 12 mmol/L Normal 6-16 [facility] Comment on above: Performed By: #### 5 84315874, 26305678, 9292601, 0185947, 3855975, 0408060, 5932803, 0265192, 9831798, 5802314, 0521526 ####[facility] [address] [place] [address] AST [Catalytic activity/Vol] 24 Int._Unit/L Normal 5-4 3 [facility] Comment on above: Performed By: #### 5 03270833, 56975846, 4200467, 6071370, 0172604, 6154018, 1072454, 4756215, 2851912, 1045695, 1797343 ####[facility] [address] [place] [address] Bilirubin [Mass/Vol] 0.6 mg/dL Normal 0.0-1.1 [facility] Comment on above: Performed By: #### 5 49463194, 30147644, 1431600, 5040418, 4055406, 3266722, 6585073, 6296447, 3118356, 5350466, 7491667 ####[facility] [address] [place] [address] Calcium [Mass/Vol] 9.9 mg/dL Normal 8.9-11.1 [facility] Comment on above: Performed By: #### 5 49904320, 34502428, 8154967, 4592953, 3919222, 7281830, 6429681, 0398814, 3084445, 9001477, 0874693 ####[facility] [address] [place] [address] Chloride [Moles/Vol] 92 mmol/L Low 101-111 [facility] Comment on above: Performed By: #### 5 99513687, 66161856, 0174429, 2597004, 2508738, 6717250, 9321776, 1671449, 1561940, 9889891, 5496101 ####[facility] [address] [place] [address] CO2 [Moles/Vol] 29 mmol/L Normal 21-31 [facility] Comment on above: Performed By: #### 5 98742837, 25079335, 2364898, 0953295, 8413431, 6565208, 5800696, 0280253, 0479952, 3031567, 1748024 ####[facility] [address] [place] [address] Creatinine [Mass/Vol] 0.6 mg/dL Normal 0.5-1.3 [facility] Comment on above: Performed By: #### 5 02814186, 20717909, 9043801, 3933953, 5997904, 6009059, 8465891, 1339339, 2675264, 7916258, 9106153 ####[facility] [address] [place] [address] Globulin (S) [Mass/Vol] 2.4 g/dL Normal 1.4-4.0 [facility] Comment on above: Performed By: #### 5 70869066, 94954521, 4516889, 9815144, 3135136, 9202853, 5338705, 4398661, 8446591, 8535836, 8138003 ####[facility] [address] [place] [address] Glucose [Mass/Vol] 116 mg/dL Normal 55-199 [facility] Comment on above: Result Comment: If t his glucose result represents a fasting glucose, interpretation should refer to the following reference range: 55-99 mg/dL Performed By: #### 5 40496010, 42558768, 6195336, 2490041, 8985221, 5664513, 9326971, 0371027, 4188602, 6917721, 3247086 ####[facility] [address] [place] [address] Potassium [Moles/Vol] 4.5 mmol/L Normal 3.5-5.3 [facility] Comment on above: Performed By: #### 5 04197200, 13227785, 8204025, 1269030, 7539240, 4150255, 9440955, 1082514, 5934320, 4388971, 5249033 ####[facility] [address] [place] [address] Protein [Mass/Vol] 6.5 g/dL Normal 6.0-7.8 [facility] Comment on above: Performed By: #### 5 94139397, 50622132, 3825157, 3034914, 1723801, 3142167, 2068382, 2784377, 2139266, 5549063, 4999718 ####[facility] [address] [place] [address] Sodium [Moles/Vol] 128 mmol/L Low 135-145 [facility] Comment on above: Performed By: #### 5 01980811, 03393828, 4398974, 7390511, 0397668, 3524249, 0564346, 8398948, 4866747, 9615057, 6430023 ####[facility] [address] [place] [address] Urea nitrogen [Mass/Vol] 15 mg/dL Normal 5-21 [facility] Comment on above: Performed By: #### 5 75290895, 56027231, 5941984, 4603422, 5291139, 6185587, 4352779, 0461070, 8627600, 8709376, 1541363 ####[facility] [address] [place] [address] Urea nitrogen/Creatinine [Mass ratio] 25 No Units High 10-20 [facility] Comment on above: Performed By: #### 5 44505631, 46400695, 6290398, 1190326, 1263401, 5071353, 0528185, 0215408, 4528015, 7451666, 8476601 ####[facility] [address] [place] [address] Ferritinon 01-23-2023 Ferritin [Mass/Vol] 81 ng/mL Normal 11-307 [facility] Comment on above: Result Comment: NORM ALS MEN <30 YRS 16-132 ng/mL MEN >30 YRS 8-338 ng/mL WOMEN (PREMEN) 6-104 ng/mL WOMEN (POSTMEN) 12-210 ng/mL Performed By: #### 5 38200531, 65688340, 8682342, 8760876, 1443133, 0259478, 9151224, 7947195, 2666559, 8318124, 9543998 ####[facility] [address] [place] [address] Folateon 01-23-2023 Folate [Mass/Vol] ng/mL Normal >=6.7 [facility] Comment on above: Performed By: #### 5 84992184, 32011750, 5504320, 3812320, 5592754, 2259034, 1521777, 6174291, 6967990, 8859637, 2343546 ####[facility] [address] [place] [address] Ironon 01-23-2023 Iron [Mass/Vol] 64 microgram/dL Normal 35-153 [facility] Comment on above: Performed By: #### 5 67376222, 46031217, 6761909, 6026426, 1717978, 2349292, 7293215, 1160230, 0250555, 3491324, 1333800 ####[facility] [address] [place] [address] Iron Saturationon 01-23-2023 Iron binding capacity [Mass/Vol] 396 microgram/dL Normal 250-[address] [facility] Comment on above: Performed By: #### 5 21598138, 65150603, 3560434, 6014826, 9819791, 9266061, 3745535, 5750866, 1089277, 2087393, 9369978 ####[facility] [address] [place] [address] Iron saturation [Mass fraction] 16 % Low 20-5 0 [facility] Comment on above: Performed By: #### 5 62742794, 82088246, 0471243, 8968720, 2991768, 2866383, 9102469, 8338356, 1922829, 3443816, 5793094 ####[facility] [address] [place] [address] Physician Orderon 01-23-2023 Physician Order [id number]:127 Normal [facility] Transferrinon 01-23-2023 Transferrin [Mass/Vol] 283 mg/dL Normal 200-370 [facility] Comment on above: Order Comment: Trans maty order added by Discern Rule: gl_ftmc_add_iron_trans . Performed By: #### 5 63392202, 46435225, 6266533, 7543087, 4296175, 5499326, 4667461, 8916783, 1046587, 8806370, 9945115 ####[facility] [address] [place] [address] Vit B12on 01-23-2023 Cobalamin (Vitamin B12) [Mass/Vol] 734 pg/mL Normal 50-1500 [facility] Comment on above: Performed By: #### 5 23085473, 29811496, 9368073, 8744518, 8528722, 6353738, 7916380, 6917295, 8219872, 4334732, 8642240 ####[facility] [address] [place] [address] Vitamin D 25 Hydroxyon 01-23 25-hydroxyvitamin D3 [Mass/Vol] 108.7 ng/mL High 30. 0-100.0 [facility] Comment on above: Result Comment: Vit gorman D deficiency has been defined as a level of serum 25-OH vitamin D less than 20 ng/mL (1,2) by the [place] of [employer] and an Endocrine Society practice guideline. The Endocrine Society further defined vitamin D insufficiency as a level between 21 and 29 ng/mL (2). 1. IOM ([place] of [employer]). 2010. Dietary reference intakes for calcium and D. [place]: The National Academies Press. 2. Aida MF, Abbie LAZARO, Ashley WILKINS, et al. Evaluation, treatment, and prevention of vitamin D deficiency: an Endocrine Society clinical practice guideline. JCEM. 2010; 96 (7):1911-30. Performed By: #### 5 27270352, 70102636, 6782990, 8935411, 3403911, 5645157, 4827412, 2674316, 4124932, 7861972, 9594652 ####[facility] [address] [place] [address] eGFRon 01-23-2023 GFR/1.73 sq M.predicted di g blacks MDRD (S/P/Bld) [Vol rate/Area] mL/min/{1.73_m2} Normal >=[address] [facility] Comment on above: Order Comment: Order added by Discern Expert. Result Comment: eGFR is race adjusted. AA=. Performed By: #### 5 07716313, 90306443, 1969392, 6148525, 0868304, 2238427, 0999895, 7165983, 1808377, 0545927, 8650083 ####[facility] [address] [place] [address] GFR/1.73 sq M.predicted di g non-blacks MDRD (S/P/Bld) [Vol rate/Area] mL/min/{1.73_m2} Normal >=[address] [facility] Comment on above: Order Comment: Order added by Discern Expert. Result Comment: Certified Indoor Environmentalist nahum kidney disease could be indicated at eGFR's of less than 60 mL/min/1.73m2. Kidney failure is indicated at less than 15 mL/min/1.73m2. Performed By: #### 5 76935840, 28121251, 7044773, 3517790, 0936863, 0650733, 6329230, 9171304, 7046204, 9776915, 1057826 ####[facility] [address] [place] [address] Office Visit (Cardiology)on 01-21-2023 Follow-up visit Diagnoses/Problems Assessed Chest pain (786.50) (R07.9) Benign essential hypertension (401.1) (I10) Hyperlipemia (272.4) (E78.5) Diabetes mellitus (250.00) (E11.9) Body mass index (BMI) of 19.9 or less in adult (Z68.1) Orders Benign essential hypertension, Chest pain, Diabetes mellitus, Hyperlipemia Start: Nitroglycerin 0.4 MG Sublingual Tablet Sublingual; DISSOLVE 1 TABLET UNDER THE TONGUE NEEDED FOR CHEST PAIN Cardiac Catheterization Lab Procedures; Status:Active; Requested for:[id number]; Body mass index (BMI) of 19.9 or less in adult Healthy Weight Tips; Status:Complete; Done: [id number] Patient Instructions Please bring all medicines, vitamins, and herbal supplements with you when you come to the office. Prescriptions will not be filled unless you are compliant with your follow up appointments or have a follow up appointment scheduled as per instruction of your physician. Refills should be requested at the time of your visit. PLAN: Through informed decision making process incorporating patients unique circumstances, the following treatment plan will be initiated: 1. Prescription drug management of cardiovascular medication for efficacy, adherence to treatment, side effect assessment and polypharmacy. Current treatment clinically warranted and to continue without modifications. 2. Cardiac cath with Dr. Rosas 3. NTG sl use as needed 4. Return for follow-up; in the interim, contact the office if new symptoms arise. PRIMARY CARE PHYSICIAN after testing Chief Complaint Add on d/t chest pain: 'I am having chest pain into shoulder and arm' MARITZA VICENTE is being seen for advanced heart failure therapy and chest pain. Patient presents to the office ambulatory with steady gait, is accompanied by her . Last evaluated in clinic by myself May 2022. Following that visit, patient called into the office with chest discomfort and a June 2022 perfusion study showed low likelihood critical coronary artery disease. Patient presents to the office for earlier follow-up due to complaints of chest pain. Since last office visit, she has had 4 emergency department visits due to chest pain. She also reports in July 2022 being diagnosed with general anxiety disorder. She is also followed by GI and recently diagnosed with irritable bowel syndrome. She presents to the office today where she reports chest pain that is taking over her life . She reports a left-sided anterior chest wall into shoulder and left arm aching discomfort that is worsened with anxiety. There is no associated shortness of breath, nausea or diaphoresis. It can occur at rest, she has not utilized nitroglycerin. She has been told that this discomfort is from her anxiety . She is worried about the discomfort and has started to cut back on her activity level including housework and ADLs. She had cervical disc disease in the past and the shoulder pain is different. She had the discomfort when sitting in the exam room but was also so anxious to come here . Symptoms are occurring more days than not, they are not waking her from sleep. She has been educated on the use of nitroglycerin. For the most part, symptoms are nonexertional and sometimes relieved with anxiolytics. Nonetheless, her quality of life and activity level are being significantly impacted. Reviewed recent cardiovascular testing including favorable perfusion study. To help alleviate anxiety and to better triage symptoms rather than frequent emergency department evaluations, we will proceed with cardiac catheterization to more clearly delineate coronary anatomy. Both patient and are very appreciative to this approach and are in agreement to proceed. Due to progressive symptomatology the risks, benefits and procedure of cardiac catheterization plus or minus coronary intervention were discussed including but not limited to 1:1000 myocardial infarction, stroke, urgent coronary artery bypass graft and rare recorded : 1:100 vascular complications and contrast-induced acute renal failure. The patient is in agreement to proceed. Patient presents with no IVP allergies. Patient has no contraindication to antiplatelet therapy, no planned surgical procedures in the near future. Concomitant medications have been reviewed. Last renal function has been reviewed. History of Present Illness The patient states she has been generally stable since the last visit. Comorbid Illnesses: diabetes mellitus, hypertension and hyperlipidemia. Symptoms: worsened chest pain at rest, denies dyspnea, stable fatigue, denies exercise intolerance, denies palpitations, denies edema, denies orthopnea, denies dizziness and denies orthostatic dizziness. Her symptoms do not limit her activities. Disease Monitoring: The patient has had a 7 pounds weight loss. Medications: the patient is adherent with her medication regimen. She denies medication side effects. Surgical History Problems History of Appendectomy History of Cholecystectomy (more content not included)... Normal Touchw orks Tobacco Screening.on 023 Adult depression screening assessment No [facility] Italo art-Silver 250 DO Work Phone: Fall risk assessment a) No falls within the last year [facility] Heart- [place] 250 DO Work Phone: Tobacco use status CPHS b) No [facility] [place] [facility]-[place] 250 DO Work Phone: CARDIAC NISHA ADMITon 023 CK [Catalytic activity/Vol] 48 U/L Normal 26-192 [facility] Comment on above: Performed By: #### H STROPN, BNP, LIPA, CMP, TSH #### [facility] [address] [place] [address] Dr. Alyson Rowley CK.MB [Mass/Vol] 1.29 ng/mL Normal <=3.60 [facility] Comment on above: Performed By: #### H STROPN, BNP, LIPA, CMP, TSH #### [facility] [address] [place] [address] Dr. Alyson Rowley HSTROP 4.3 pg/mL Normal 4.0-51.3 [facility] ospital Comment on above: Result Comment: CUT- OFF POINTS HAVE BEEN ESTABLISHED BASED ON THE FOURTH UNIVERSAL DEFINITIONS OF MYOCARDIAL INFARCTION. THE UPPER REFERENCE LIMIT (URL) OF TROPONIN, DEFINED THE 99TH PERCENTILE OF cTnI DISTRIBUTION IN A REFERENCE POPULATION, HAS BEEN CONFIRMED THE DECISION THRESHOLD FOR [place] DIAGNOSIS. Performed By: #### H STROPN, BNP, LIPA, CMP, TSH #### [facility] [address] [place] [address] Dr. Alyson Rowley DORA 30 ng/mL Normal 9-82 [facility]ital Comment on above: Performed By: #### H STROPN, BNP, LIPA, CMP, TSH #### [facility] [address] [place] [address] Dr. Alyson Rowley CBC AUTO DIFFon 01-19-2023 BASO # 0.1 103/ul Normal 0.0-0.1 [facility] ostal Comment on above: Performed By: #### H STROPN, BNP, LIPA, CMP, TSH #### [facility] [address] [place] [address] Dr. Alyson Rowley Basophils/100 WBC (Bld) 0.5 % Normal 0.2-2.0 [facility] Comment on above: Performed By: #### H STROPN, BNP, LIPA, CMP, TSH #### [facility] [address] [place] [address] Dr. Alyson Rowley EO # 0.2 103/ul Normal 0.0-0.7 [facility] o[facility]ital Comment on above: Performed By: #### H STROPN, BNP, LIPA, CMP, TSH #### [facility] [address] [place] [address] Dr. Alyson Rowley Eosinophils/100 WBC (Bld) 2.1 % Normal 0.9-7.0 [facility] Comment on above: Performed By: #### H STROPN, BNP, LIPA, CMP, TSH #### [facility] [address] [place] [address] Dr. Alyson Rowley Erythrocyte distribution wid th (RBC) [Ratio] 12.6 % Normal 11.0-15.[address] [facility] pital Comment on above: Performed By: #### H STROPN, BNP, LIPA, CMP, TSH #### [facility] [address] [place] [address] Dr. Alyson Rowley Hematocrit (Bld) [Volume fraction] 37.3 % Normal 3 6.0-48.0 [facility] Comment on above: Performed By: #### H STROPN, BNP, LIPA, CMP, TSH #### [facility] [address] [place] [address] Dr. Alyson Rowley Hemoglobin (Bld) [Mass/Vol] 12.9 g/dL Normal 12.0-16. 0 [facility] Comment on above: Performed By: #### H STROPN, BNP, LIPA, CMP, TSH #### [facility] [address] [place] [address] Dr. Alyson Rowley IG # 0.03 10e3/ul Normal 0.00-0.03 [facility] Comment on above: Performed By: #### H STROPN, BNP, LIPA, CMP, TSH #### [facility] [address] [place] [address] Dr. Alyson Rowley IG % 0.3 % Normal 0.0-0.5 [facility] Comment on above: Performed By: #### H STROPN, BNP, LIPA, CMP, TSH #### [facility] [address] [place] [address] Dr. Alyson Rowley LYMPH # 1.4 103/ul Normal 1.2-3.8 [facility] Comment on above: Performed By: #### H STROPN, BNP, LIPA, CMP, TSH #### [facility] [address] [place] [address] Dr. Alyson Rowley Lymphocytes/100 WBC (Bld) 14.5 % Critically low 20.5-6 0.0 [facility] Comment on above: Performed By: #### H STROPN, BNP, LIPA, CMP, TSH #### [facility] [address] [place] [address] Dr. Alyson Rowley MANUAL DIFF REQ NO Normal [facility] Comment on above: Performed By: #### H STROPN, BNP, LIPA, CMP, TSH #### [facility] [address] [place] [address] Dr. Alyson Rowley MCH (RBC) [Entitic mass] 28.7 pg Normal 26.7-34.0 [facility] Comment on above: Performed By: #### H STROPN, BNP, LIPA, CMP, TSH #### [facility] [address] [place] [address] Dr. Alyson Rowley MCHC (RBC) [Mass/Vol] 34.6 g/dL Normal 29.9-35.2 [facility] Comment on above: Performed By: #### H STROPN, BNP, LIPA, CMP, TSH #### [facility] [address] [place] [address] Dr. Alyson Rowley MCV (RBC) [Entitic vol] 82.9 fL Normal 81.0-99.0 [facility] Comment on above: Performed By: #### H STROPN, BNP, LIPA, CMP, TSH #### [facility] [address] [place] [address] Dr. Alyson Rowley MONO # 0.7 103/ul Normal 0.3-0.8 [facility] ospital Comment on above: Performed By: #### H STROPN, BNP, LIPA, CMP, TSH #### [facility] [address] [place] [address] Dr. Alyson Rowley Monocytes/100 WBC (Bld) 6.9 % Normal 1.7-12.0 [facility] Comment on above: Performed By: #### H STROPN, BNP, LIPA, CMP, TSH #### [facility] [address] [address] [address] Alyson Rowley NEUT # 7.4 103/ul Critically high 1.4-6.5 [facility] Comment on above: Performed By: #### H STROPN, BNP, LIPA, CMP, TSH #### [facility] [address] [place] [address] Dr. Alyson Rowley Neutrophils/100 WBC (Bld) 75.7 % Critically high 43.0- 75.0 [facility] Comment on above: Performed By: #### H STROPN, BNP, LIPA, CMP, TSH #### [facility] [address] [place] [address] Dr. Alyson Rowley Platelet mean volume (Bld) [Entitic vol] 8.7 fL Critically low 9.5-13.5 [facility] Comment on above: Performed By: #### H STROPN, BNP, LIPA, CMP, TSH #### [facility] [address] [address] [address] Alyson Rolwey PLT 253 103/ul Normal 150-450 [facility] Comment on above: Performed By: #### H STROPN, BNP, LIPA, CMP, TSH #### [facility] [address] [address] [address] Alyson Rowley RBC 4.50 106/ul Normal 4.20-5.40 [facility] Comment on above: Performed By: #### H STROPN, BNP, LIPA, CMP, TSH #### [facility] [address] [address] [address] Alyson Rowley WBC 9.8 103/ul Normal 4.0-11.0 [facility] ospital Comment on above: Performed By: #### H STROPN, BNP, LIPA, CMP, TSH #### [facility] [address] [place], [place] [address] HEAD WO CONon 01-19-2023 CT HEAD WO CON EXAMINATION: CT HEAD WO CON HISTORY: dizziness COMPARISON: 08/25/2019. TECHNIQUE: Axial CT scans through the head were obtained without IV contrast administration. Dose reduction techniques were achieved by using: automated exposure control and/or adjustment of mA and /or kV according to patient size and/or use of iterative reconstruction technique. FINDINGS: There is no evidence of acute intracranial hemorrhage or abnormal extra-axial fluid collection. No mass effect or midline shift is seen. There is no evidence of large acute territorial infarction. There is no hydrocephalus. Mild enlarged ventricles and sulci, consistent with age appropriate cerebral atrophy. To the limit of CT, the posterior fossa appears unremarkable. No definite acute fracture is identified. Soft tissues are unremarkable. The visualized orbits show no abnormal mass. The visualized paranasal sinuses show no air-fluid level. Mastoid air cells are clear. IMPRESSION: No CT evidence of acute intracranial abnormality. Electronically authenticated by: RUST UNLU Date: 2023-01-19 20:36 Normal [facility] ER URINE PROFILEon 3 Bilirubin Ql (U) Negative Normal NEGATIVE [facility] Comment on above: Performed By: #### U MICRO, ERUR ####[facility] [address] [address]DrJulia Rowley Clarity (U) CLEAR Normal CLEAR [facility] Comment on above: Performed By: #### U MICRO, ERUR ####[facility] [address] [address]DrJulia Rowley Color (U) YELLOW Normal YELLOW [facility] ospital Comment on above: Performed By: #### U MICRO, ERUR ####[facility] [address] [id number] Rowley ERUAHD A micrscopic examina tion will be performed if indicated. Normal The [facility] l Comment on above: Performed By: #### U MICRO, ERUR ####[facility] [address] [address]Dr. Alyson Rowley Glucose Ql (U) Negative Normal NEGATIVE [facility] Comment on above: Performed By: #### U MICRO, ERUR ####[facility] [address] [address]Dr. Alyson Rowley Hemoglobin Ql (U) Negative Normal NEGATIVE [facility] Comment on above: Performed By: #### U MICRO, ERUR ####[facility] [address] [place], [place] [address]Dr. Alyson Rowley Ketones Ql (U) Negative Normal NEGATIVE [facility] Comment on above: Performed By: #### U MICRO, ERUR ####[facility] [address] [place], [place] [address]Dr. Alyson Rowley LEUKOCYTES TRACE Abnormal NEGATIVE [facility] Comment on above: Performed By: #### U MICRO, ERUR ####[facility] [address] [place], [place] [address]Dr. Alyson Rowley Nitrite Ql (U) Negative Normal NEGATIVE [facility] Comment on above: Performed By: #### U MICRO, ERUR ####[facility] [address] [place], [place] [address]Dr. Alyson Rowley pH (U) 6.5 [pH] Normal 5-9 [facility] Comment on above: Performed By: #### U MICRO, ERUR ####[facility] [address] [place], [place] [address]Dr. Alyson Rowley Protein (U) [Mass/Vol] 30 mg/dL Abnormal NEGATIVE/ TRA CE [facility] Comment on above: Performed By: #### U MICRO, ERUR ####[facility] [address] [place], [place] [address]Dr. Alyson Rowley SPEC GRAVITY 1.020 Normal 1.005-<=1.025 [facility] Comment on above: Performed By: #### U MICRO, ERUR ####[facility] [address] [place], [place] [address]Dr. Alyson Rowley UR MICRO IND INDICATED Normal [facility] Comment on above: Performed By: #### U MICRO, ERUR ####[facility] [address] [address]Dr. Alyson Rowley Urobilinogen Qn (U) 0.2 {Karen'U}/dL Normal 0.2 - 1. 0 [facility] Comment on above: Performed By: #### U MICRO, ERUR ####[facility] [address] [address]Dr. Alyson Rowley PROF 14(COMP METB)on 023 Albumin [Mass/Vol] 3.7 g/dL Normal 3.4-5.0 [facility] Comment on above: Performed By: #### H STROPN, BNP, LIPA, CMP, TSH #### [facility] [address] [address] [address] Alyson Rowley Albumin/Globulin [Mass ratio] 1.2 {ratio} Normal [facility] Comment on above: Performed By: #### H STROPN, BNP, LIPA, CMP, TSH #### [facility] [address] [address] [address] Alyson Rowley ALP [Catalytic activity/Vol] 57 U/L Normal 46-116 [facility] Comment on above: Performed By: #### H STROPN, BNP, LIPA, CMP, TSH #### [facility] [address] [address] [address] Alyson Rowley ALT [Catalytic activity/Vol] 25 U/L Normal 14-59 [facility] Comment on above: Performed By: #### H STROPN, BNP, LIPA, CMP, TSH #### [facility] [address] [address] [address] Alyson Rowley Anion gap [Moles/Vol] 13.8 mmol/L Normal [facility] Comment on above: Performed By: #### H STROPN, BNP, LIPA, CMP, TSH #### [facility] [address] [address] [address] Alyson Rowley AST [Catalytic activity/Vol] 23 U/L Normal 15-37 [facility] Comment on above: Performed By: #### H STROPN, BNP, LIPA, CMP, TSH #### [facility] [address] [address] [address] Alyson Rowley Bilirubin [Mass/Vol] 0.4 mg/dL Normal 0.2-1.0 [facility] Comment on above: Performed By: #### H STROPN, BNP, LIPA, CMP, TSH #### [facility] [address] [address] [address] Alyson Rowley Calcium [Mass/Vol] 9.5 mg/dL Normal 8.5-10.1 [facility] Comment on above: Performed By: #### H STROPN, BNP, LIPA, CMP, TSH #### [facility] [address] [address] [address] Alyson Rowley Chloride [Moles/Vol] 91 mmol/L Critically low 98-107 [facility] Comment on above: Performed By: #### H STROPN, BNP, LIPA, CMP, TSH #### [facility] [address] [address] [address] Alyson Rowley CO2 [Moles/Vol] 26.8 mmol/L Normal 21.0-32.0 [facility] Comment on above: Performed By: #### H STROPN, BNP, LIPA, CMP, TSH #### [facility] [address] [address] [address] Alyson Rowley Creatinine [Mass/Vol] 0.71 mg/dL Normal 0.55-1.02 [facility] Comment on above: Performed By: #### H STROPN, BNP, LIPA, CMP, TSH #### [facility] [address] [address] [address] Alyson Rowley EGFR-AF TURKISH >60 Normal >=60 [facility] Comment on above: Performed By: #### H STROPN, BNP, LIPA, CMP, TSH #### [facility] [address] [address] [address] Alyson Rowley EGFR-NON AF TURKISH >60 Normal >=60 [facility] Comment on above: Performed By: #### H STROPN, BNP, LIPA, CMP, TSH #### [facility] [address] [address] [address] Alyson Rowley Globulin (S) [Mass/Vol] 3.2 g/dL Normal T [facility] Comment on above: Performed By: #### H STROPN, BNP, LIPA, CMP, TSH #### [facility] [address] [address] [address] Alyson Rowley Glucose [Mass/Vol] 100 mg/dL Normal 74-106 [facility] Comment on above: Performed By: #### H STROPN, BNP, LIPA, CMP, TSH #### [facility] [address] [place] [address] Dr. Alyson Rowley Potassium [Moles/Vol] 4.6 mmol/L Normal 3.5-5.1 [facility] Comment on above: Performed By: #### H STROPN, BNP, LIPA, CMP, TSH #### [facility] [address] [place] [address] Dr. Alyson Rowley Protein [Mass/Vol] 6.9 g/dL Normal 6.4-8.2 [facility] Comment on above: Performed By: #### H STROPN, BNP, LIPA, CMP, TSH #### [facility] [address] [place] [address] Dr. Alyson Rowley Sodium [Moles/Vol] 127 mmol/L Critically low 136-145 Th [facility] Comment on above: Performed By: #### H STROPN, BNP, LIPA, CMP, TSH #### [facility] [address] [place] [address] Dr. Alyson Rowley Urea nitrogen [Mass/Vol] 15.0 mg/dL Normal 7.0-18.0 [facility] Comment on above: Performed By: #### H STROPN, BNP, LIPA, CMP, TSH #### [facility] [address] [place] [address] Dr. Alyson Rowley Urea nitrogen/Creatinine [Mass ratio] 21.1 mg/mg Normal [facility] Comment on above: Performed By: #### H STROPN, BNP, LIPA, CMP, TSH #### [facility] [address] [place], [place] [address] Dr. Alyson Rowley URINE MICROSCOPIC ONLYon BACTERIA NONE SEEN Normal NONE SEEN [facility] ospital Comment on above: Performed By: #### U MICRO, ERUR ####[facility] [address] [address]Dr. Alyson Rowley Bacteria identified Cx Nom (U) NOT INDICATED Normal [facility] Comment on above: Performed By: #### U MICRO, ERUR ####[facility] [address] [address]Dr. Alyson Rowley CAST NONE SEEN Normal NONE SEEN [facility]ital Comment on above: Performed By: #### U MICRO, ERUR ####[facility] [address] [address]Dr. Alyson Rowley Crystals LM Nom (Urine sed) NONE SEEN Normal NONE SEE N [facility] Comment on above: Performed By: #### U MICRO, ERUR ####[facility] [address] [address]Dr. Alyson Rowley Epithelial cells LM Ql (Urin e sed) MANY Abnormal NONE SEEN /RARE [facility] pital Comment on above: Performed By: #### U MICRO, ERUR ####[facility] [address] [address]Dr. Alyson Rowley MUCOUS NONE SEEN Normal NONE SEEN [facility]spital Comment on above: Performed By: #### U MICRO, ERUR ####[facility] [address] [id number]. Alyson Rowley RBC 0-2 Normal 0-2 [facility]ital Comment on above: Performed By: #### U MICRO, ERUR ####[facility] [address] [id number]. Alyson Rowley WBC 2-5 Abnormal NONE SEEN [facility] Comment on above: Performed By: #### U MICRO, ERUR ####[facility] [address] [id number] Rowley XR CHEST 1 Von 01-19-2023 XR CHEST 1 V EXAMINATION: XR CHES T 1 V HISTORY: Cough COMPARISON: Portable chest 01/11/2023 TECHNIQUE: Portable chest FINDINGS: The lung parenchyma is free of consolidation or infiltrate. No pneumothorax or pleural effusion. The cardiac, mediastinal and hilar contours are normal. The visualized osseous structures exhibit no gross abnormality. IMPRESSION: No acute cardiopulmonary abnormality. Electronically authenticated by: SARAH BROWN Date: 2023-01-19 20:28 Normal [facility] ACETONE SERUMon 01-11-2023 ACETONE Negative Normal NEGATIVE [facility] Comment on above: Performed By: #### A CETON ####[facility] [address] [address]Dr. Alyson Rowley BNPon 01-11-2023 Natriuretic peptide B (Bld) [Mass/Vol] 308.0 pg/mL Normal <=1,800.[address] [facility] pital Comment on above: Performed By: #### H STROPN, BNP, LIPA, CMP, TSH #### [facility] [address] [place] [address] Dr. Alyson Rowley CBC AUTO DIFFon 01-11-2023 BASO # 0.0 103/ul Normal 0.0-0.1 [facility]ital Comment on above: Performed By: #### H STROPN, BNP, LIPA, CMP, TSH #### [facility] [address] [place] [address] Dr. Alyson Rowley Basophils/100 WBC (Bld) 0.7 % Normal 0.2-2.0 [facility] Comment on above: Performed By: #### H STROPN, BNP, LIPA, CMP, TSH #### [facility] [address] [place] [address] Dr. Alyson Rowley EO # 0.2 103/ul Normal 0.0-0.7 [facility]ital Comment on above: Performed By: #### H STROPN, BNP, LIPA, CMP, TSH #### [facility] [address] [address] [address] Alyson Rowley Eosinophils/100 WBC (Bld) 2.6 % Normal 0.9-7.0 [facility] Comment on above: Performed By: #### H STROPN, BNP, LIPA, CMP, TSH #### [facility] [address] [place] [address] Dr. Alyson Rowley Erythrocyte distribution wid th (RBC) [Ratio] 12.6 % Normal 11.0-15.[address] [facility] pital Comment on above: Performed By: #### H STROPN, BNP, LIPA, CMP, TSH #### [facility] [address] [place] [address] Dr. Alyson Rowley Hematocrit (Bld) [Volume fraction] 38.3 % Normal 3 6.0-48.0 [facility] Comment on above: Performed By: #### H STROPN, BNP, LIPA, CMP, TSH #### [facility] [address] [place] [address] Dr. Alyson Rowley Hemoglobin (Bld) [Mass/Vol] 12.9 g/dL Normal 12.0-16. 0 [facility] Comment on above: Performed By: #### H STROPN, BNP, LIPA, CMP, TSH #### [facility] [address] [place] [address] Dr. Alyson Rowley IG # 0.02 10e3/ul Normal 0.00-0.03 [facility] Comment on above: Performed By: #### H STROPN, BNP, LIPA, CMP, TSH #### [facility] [address] [place] [address] Dr. Alyson Rowley IG % 0.3 % Normal 0.0-0.5 [facility]ital Comment on above: Performed By: #### H STROPN, BNP, LIPA, CMP, TSH #### [facility] [address] [place] [address] Dr. Alyson Rowley LYMPH # 1.5 103/ul Normal 1.2-3.8 [facility]ital Comment on above: Performed By: #### H STROPN, BNP, LIPA, CMP, TSH #### [facility] [address] [place] [address] Dr. Alyson Rowley Lymphocytes/100 WBC (Bld) 26.3 % Normal 20.5-60.0 [facility] Comment on above: Performed By: #### H STROPN, BNP, LIPA, CMP, TSH #### [facility] [address] [place] [address] Dr. Alyson Rowley MANUAL DIFF REQ NO Normal [facility] Comment on above: Performed By: #### H STROPN, BNP, LIPA, CMP, TSH #### [facility] [address] [place] [address] Dr. Alyson Rowley MCH (RBC) [Entitic mass] 28.3 pg Normal 26.7-34.0 [facility] Comment on above: Performed By: #### H STROPN, BNP, LIPA, CMP, TSH #### [facility] [address] [place] [address] Dr. Alyson Rowley MCHC (RBC) [Mass/Vol] 33.7 g/dL Normal 29.9-35.2 [facility] Comment on above: Performed By: #### H STROPN, BNP, LIPA, CMP, TSH #### [facility] [address] [place] [address] Dr. Alyson Rowley MCV (RBC) [Entitic vol] 84.0 fL Normal 81.0-99.0 [facility] Comment on above: Performed By: #### H STROPN, BNP, LIPA, CMP, TSH #### [facility] [address] [place] [address] Dr. Alyson Rowley MONO # 0.5 103/ul Normal 0.3-0.8 [facility] Comment on above: Performed By: #### H STROPN, BNP, LIPA, CMP, TSH #### [facility] [address] [place] [address] Dr. Alyson Rowley Monocytes/100 WBC (Bld) 8.7 % Normal 1.7-12.0 [facility] Comment on above: Performed By: #### H STROPN, BNP, LIPA, CMP, TSH #### [facility] [address] [place] [address] Dr. Alyson Rowley NEUT # 3.5 103/ul Normal 1.4-6.5 [facility]spital Comment on above: Performed By: #### H STROPN, BNP, LIPA, CMP, TSH #### [facility] [address] [place] [address] Dr. Alyson Rowley Neutrophils/100 WBC (Bld) 61.4 % Normal 43.0-75.0 [facility] Comment on above: Performed By: #### H STROPN, BNP, LIPA, CMP, TSH #### [facility] [address] [place] [address] Dr. Alyson Rowley Platelet mean volume (Bld) [Entitic vol] 9.0 fL Critically low 9.5-13.[address] [facility] pital Comment on above: Performed By: #### H STROPN, BNP, LIPA, CMP, TSH #### [facility] [address] [place] [address] Dr. Alyson Rowley PLT 234 103/ul Normal 150-450 [facility]ital Comment on above: Performed By: #### H STROPN, BNP, LIPA, CMP, TSH #### [facility] [address] [place] [address] Dr. Alyson Rowley RBC 4.56 106/ul Normal 4.20-5.40 [facility] Comment on above: Performed By: #### H STROPN, BNP, LIPA, CMP, TSH #### [facility] [address] [place] [address] Dr. Alyson Rowley WBC 5.7 103/ul Normal 4.0-11.0 [facility] [facility] Comment on above: Performed By: #### H STROPN, BNP, LIPA, CMP, TSH #### [facility] [address] [place] [address] Dr. Alyson Rowley ER URINE PROFILEon 3 Bilirubin Ql (U) Negative Normal NEGATIVE [facility] Comment on above: Performed By: #### H STROPN, BNP, LIPA, CMP, TSH #### [facility] [address] [address] [address] Alyson Rowley Clarity (U) CLEAR Normal CLEAR [facility] Comment on above: Performed By: #### H STROPN, BNP, LIPA, CMP, TSH #### [facility] [address] [address] [address] Alyson Rowley Color (U) LT. YELLOW Normal YELLOW [facility]spital Comment on above: Performed By: #### H STROPN, BNP, LIPA, CMP, TSH #### [facility] [address] [address] [address] Alyson Rowely ERUAHD A micrscopic examina tion will be performed if indicated. Normal The [facility] Comment on above: Performed By: #### H STROPN, BNP, LIPA, CMP, TSH #### [facility] [address] [address] [address] Alyson Rowley Glucose Ql (U) Negative Normal NEGATIVE [facility] Comment on above: Performed By: #### H STROPN, BNP, LIPA, CMP, TSH #### [facility] [address] [address] [address] Alyson Rowley Hemoglobin Ql (U) Negative Normal NEGATIVE [facility] Comment on above: Performed By: #### H STROPN, BNP, LIPA, CMP, TSH #### [facility] [address] [address] [address] Alyson Rowley Ketones Ql (U) Negative Normal NEGATIVE [facility] Comment on above: Performed By: #### H STROPN, BNP, LIPA, CMP, TSH #### [facility] [address] [address] [address] Alyson Rowley LEUKOCYTES Negative Normal NEGATIVE [facility] Comment on above: Performed By: #### H STROPN, BNP, LIPA, CMP, TSH #### [facility] [address] [address] [address] Alyson Rowley Nitrite Ql (U) Negative Normal NEGATIVE [facility] Comment on above: Performed By: #### H STROPN, BNP, LIPA, CMP, TSH #### [facility] [address] [address] [address] Alyson Rowley pH (U) 7.5 [pH] Normal 5-9 [facility] Comment on above: Performed By: #### H STROPN, BNP, LIPA, CMP, TSH #### [facility] [address] [address] [address] Alyson Rowley SPEC GRAVITY 1.010 Normal 1.005-<=1.025 [facility] Comment on above: Performed By: #### H STROPN, BNP, LIPA, CMP, TSH #### [facility] [address] [address] [address] Alsyon Rowley UA PROTEIN Negative Normal NEGATIVE/ TRACE [facility] Comment on above: Performed By: #### H STROPN, BNP, LIPA, CMP, TSH #### [facility] [address] [place] [address] Dr. Alyson Rowley UR MICRO IND NOT INDICATED Normal [facility] Comment on above: Performed By: #### H STROPN, BNP, LIPA, CMP, TSH #### [facility] [address] [place] [address] Dr. Alyson Rowley Urobilinogen Qn (U) 0.2 {Karen'U}/dL Normal 0.2 - 1. 0 [facility] Comment on above: Performed By: #### H STROPN, BNP, LIPA, CMP, TSH #### [facility] [address] [address] [address] Alyson Rowley LACTATE/LACTIC ACIDon 2022 Lactate [Moles/Vol] 1.3 mmol/L Normal 0.4-2.0 [facility] Comment on above: Performed By: #### L ACT ####[facility] [id number] [address]Dr. Alyson Rowley LIPASEon 01-11-2023 Lipase [Catalytic activity/Vol] 101.0 U/L Normal 73.0 -393.0 [facility] Comment on above: Performed By: #### H STROPN, BNP, LIPA, CMP, TSH #### [facility] [address] [address] [address] Alyson Rowley PH VENOUS BLOODon 01-11-2023 PCO2 VENOUS 52.3 mmHg Critically high 40.0-52.0 [facility] Comment on above: Performed By: #### P HVEN ####[facility] [address] [place], [place] [address]VrDr. Alyson Rowley pH VENOUS 7.391 Normal 7.330-7.430 [facility] Comment on above: Performed By: #### P HVEN ####[facility] [address] [address]Dr. Alyson Rowley PROF 14(COMP METB)on 023 Albumin [Mass/Vol] 3.9 g/dL Normal 3.4-5.0 [facility] Comment on above: Performed By: #### H STROPN, BNP, LIPA, CMP, TSH #### [facility] [address] [address] [address] Alyson Rowley Albumin/Globulin [Mass ratio] 1.3 {ratio} Normal [facility] Comment on above: Performed By: #### H STROPN, BNP, LIPA, CMP, TSH #### [facility] [address] [address] [address] Alyson Rowley ALP [Catalytic activity/Vol] 56 U/L Normal 46-116 [facility] Comment on above: Performed By: #### H STROPN, BNP, LIPA, CMP, TSH #### [facility] [address] [address] [address] Alyson Rowley ALT [Catalytic activity/Vol] 31 U/L Normal 14-59 [facility] Comment on above: Performed By: #### H STROPN, BNP, LIPA, CMP, TSH #### [facility] [address] [address] [address] Alyson Rowley Anion gap [Moles/Vol] 9.2 mmol/L Normal [facility] Comment on above: Performed By: #### H STROPN, BNP, LIPA, CMP, TSH #### [facility] [address] [address] [address] Alyson Rowley AST [Catalytic activity/Vol] 17 U/L Normal 15-37 [facility] Comment on above: Performed By: #### H STROPN, BNP, LIPA, CMP, TSH #### [facility] [address] [address] [address] Alyson Rowley Bilirubin [Mass/Vol] 0.4 mg/dL Normal 0.2-1.0 [facility] Comment on above: Performed By: #### H STROPN, BNP, LIPA, CMP, TSH #### [facility] [address] [address] [address] Alyson Rowley Calcium [Mass/Vol] 9.7 mg/dL Normal 8.5-10.1 [facility] Comment on above: Performed By: #### H STROPN, BNP, LIPA, CMP, TSH #### [facility] [address] [place] [address] Dr. Alyson Rowley Chloride [Moles/Vol] 92 mmol/L Critically low 98-107 [facility] Comment on above: Performed By: #### H STROPN, BNP, LIPA, CMP, TSH #### [facility] [address] [place] [address] Dr. Alyson Rowley CO2 [Moles/Vol] 32.3 mmol/L Critically high 21.0-32.0 [facility] Comment on above: Performed By: #### H STROPN, BNP, LIPA, CMP, TSH #### [facility] [address] [place] [address] Dr. Alyson Rowley Creatinine [Mass/Vol] 0.65 mg/dL Normal 0.55-1.02 [facility] Comment on above: Performed By: #### H STROPN, BNP, LIPA, CMP, TSH #### [facility] [address] [place] [address] Dr. Alyson Rowley EGFR-AF TURKISH >60 Normal >=60 [facility] Comment on above: Performed By: #### H STROPN, BNP, LIPA, CMP, TSH #### [facility] [address] [address] [address] Alyson Rowley EGFR-NON AF TURKISH >60 Normal >=60 [facility] Comment on above: Performed By: #### H STROPN, BNP, LIPA, CMP, TSH #### [facility] [address] [address] [address] Alyson Rowley Globulin (S) [Mass/Vol] 3.0 g/dL Normal [facility] Comment on above: Performed By: #### H STROPN, BNP, LIPA, CMP, TSH #### [facility] [address] [address] [address] Alyson Rowley Glucose [Mass/Vol] 107 mg/dL Critically high 74-106 [facility] Comment on above: Performed By: #### H STROPN, BNP, LIPA, CMP, TSH #### [facility] [address] [address] [address] Alyson Rowley Potassium [Moles/Vol] 4.5 mmol/L Normal 3.5-5.1 [facility] Comment on above: Performed By: #### H STROPN, BNP, LIPA, CMP, TSH #### [facility] [address] [address] [address] Alyson Rowley Protein [Mass/Vol] 6.9 g/dL Normal 6.4-8.2 [facility] Comment on above: Performed By: #### H STROPN, BNP, LIPA, CMP, TSH #### [facility] [address] [address] [address] Alyson Rowley Sodium [Moles/Vol] 129 mmol/L Critically low 136-145 [facility] Comment on above: Performed By: #### H STROPN, BNP, LIPA, CMP, TSH #### [facility] [address] [address] [address] Alyson Rowley Urea nitrogen [Mass/Vol] 11.0 mg/dL Normal 7.0-18.0 [facility] Comment on above: Performed By: #### H STROPN, BNP, LIPA, CMP, TSH #### [facility] [address] [address] [address] Alyson Rowley Urea nitrogen/Creatinine [Mass ratio] 16.9 mg/mg Normal [facility] Comment on above: Performed By: #### H STROPN, BNP, LIPA, CMP, TSH #### [facility] [address] [place], [place] [address] Dr. Alyson Rowley PROTIMEon 01-11-2023 INR Coag (PPP) [Relative time] 1.06 {INR} Normal [facility] Comment on above: Performed By: #### P TT, PT ####[facility] [address] [address]DrJulia Rowley INR GUIDELINES SEE BELOW Normal [facility] Comment on above: Result Comment: YUE RED INR: 2.0 - 3.0 CONDITIONS NOT LISTED BELOW 2.5 - 3.5 FOR PROSTHETIC HEART VALVE REPLACEMENT 2.5 - 3.5 RECURRENT THROMBOSIS Performed By: #### P TT, PT ####[facility] [address] [address]DrJulia Rowley PT Coag (PPP) [Time] 11.2 s Normal 9.0-11.6 [facility] Comment on above: Performed By: #### P TT, PT ####[facility] [address] [address]DrJulia Rowley PTTon 01-11-2023 aPTT Coag (Bld) [Time] 28.2 s Normal 22.3-36.2 [facility] Comment on above: Performed By: #### P TT, PT ####[facility] [address] [address]Dr. Alyson Rowley TROPONIN, HIGH SENSITIVITYon 01-11-2023 HSTROP 5.4 pg/mL Normal 4.0-51.3 [facility] ospital Comment on above: Result Comment: CUT- OFF POINTS HAVE BEEN ESTABLISHED BASED ON THE FOURTH UNIVERSAL DEFINITIONS OF MYOCARDIAL INFARCTION. THE UPPER REFERENCE LIMIT (URL) OF TROPONIN, DEFINED THE 99TH PERCENTILE OF cTnI DISTRIBUTION IN A REFERENCE POPULATION, HAS BEEN CONFIRMED THE DECISION THRESHOLD FOR [place] DIAGNOSIS. Performed By: #### H STROPN ####[facility] [address] [place], [place] [address]WdJulia Rowley HSTROP 6.4 pg/mL Normal 4.0-51.3 [facility] Comment on above: Result Comment: CUT- OFF POINTS HAVE BEEN ESTABLISHED BASED ON THE FOURTH UNIVERSAL DEFINITIONS OF MYOCARDIAL INFARCTION. THE UPPER REFERENCE LIMIT (URL) OF TROPONIN, DEFINED THE 99TH PERCENTILE OF cTnI DISTRIBUTION IN A REFERENCE POPULATION, HAS BEEN CONFIRMED THE DECISION THRESHOLD FOR [place] DIAGNOSIS. Performed By: #### H STROPN, BNP, LIPA, CMP, TSH #### [facility] [address] [place], [place] [address] Dr. Alyson Rowley TSHon 01-11-2023 TSH 1.267 uIU/mL Normal 0.358-3.740 [facility] Comment on above: Performed By: #### H STROPN, BNP, LIPA, CMP, TSH #### [facility] [address] [address] [address] Alyson Rowley XR CHEST 1 Von 01-11-2023 XR CHEST 1 V EXAM: XR CHEST 1 V HISTORY: COUGH COMPARISON: Chest radiograph from 07/24/2022 FINDINGS: 1 view(s) of the chest. The lungs are hyperexpanded but clear without focal consolidation or pleural effusion. There is no pneumothorax. The cardiomediastinal silhouette is normal. IMPRESSION: No acute cardiopulmonary abnormality. Electronically authenticated by: ALDO BYRD Date: 2023-01-11 17:05 Normal [facility] CELIAC ANTIBODIES PROFILEon 12-24-2022 Deamidated Gliadin Abs, IgA 5 units Normal 0-19 [facility] Comment on above: Result Comment: Nega tive 0 - 19 Weak Positive 20 - 30 Moderate to Strong Positive >30 Performed By: #### C ELIACP ####[facility] [address] [id number]. Alyson Rowley Deamidated Gliadin Abs, IgG 3 units Normal 0-19 [facility] Comment on above: Result Comment: Nega tive 0 - 19 Weak Positive 20 - 30 Moderate to Strong Positive >30 Performed By: #### C ELIACP ####[facility] [address] [place], [place] [address]Ae. Alyson Rowley Endomysial Antibody IgA Negative Normal Negative T [facility] Comment on above: Performed By: #### C ELIACP ####[facility] [address] [place], [place] [address]Vz. Alyson Rowley Immunoglobulin A, Qn, Serum 172 mg/dL Normal 64-422 [facility] Comment on above: Performed By: #### C ELIACP ####[facility] [address] [id number]. Alyson Rowley t-Transglutaminase (tTG) IgA <2 Normal 0-3 [facility] Comment on above: Result Comment: Nega tive 0 - 3 Weak Positive 4 - 10 Positive >10 . Tissue Transglutaminase (tTG) has been identified as the endomysial antigen. Studies have demonstr- ated that endomysial IgA antibodies have over 99% specificity for gluten sensitive enteropathy. Performed By: #### C ELIACP ####[facility] [address] [id number]. Alyson Rowley t-Transglutaminase (tTG) IgG <2 Normal 0-5 [facility] Comment on above: Result Comment: Nega tive 0 - 5 Weak Positive 6 - 9 Positive >9 Performed By: #### C ELIACP ####[facility] [address] [id number]. Alyson Rowley Albumin [Mass/volume] in Ser um or PlasmaOrdered By: Mark Win on 12-17-2022 Albumin [Mass/Vol] 4.0 g/dL 3.2-5.5 [facility] Alkaline phosphatase [Enzyma tic activity/volume] in Serum or PlasmaOrdered By: Mark Win on 12-17-2022 ALP [Catalytic activity/Vol] 40 U/L 32-92 [facility] Aspartate aminotransferase [ Enzymatic activity/volume] in Serum or PlasmaOrdered By: Mark Win on 12-17-2022 AST [Catalytic activity/Vol] 31 U/L 10-42 [facility] Basophils Auto (Bld) [#/Vol] Ordered By: Mark Win on 12-17-2022 Basophils (Bld) [#/Vol] 0.1 10*3/uL 0.0-0.2 [facility] Basophils/100 WBC Auto (Bld) Ordered By: Mark Win on 12-17-2022 Basophils/100 WBC (Bld) 1.1 % . [facility] Bilirubin.total [Mass/volume ] in Serum or PlasmaOrdered By: Mark Win on 12-17-2022 Bilirubin [Mass/Vol] 0.6 mg/dL 0.3-1.2 [facility] Blood Mycobacterium tubercul osis tuberculin stimulated gamma interferon detectionOrdered By: Mark Win on 12-17-2022 M. tuberculosis tuberculin s luz IFN-g Ql (Bld) See comment . [facility] Comment on above: QuantiFERON-TB Gold Plus is a qualitative indirect test forM tuberculosis infection (including disease) and isintended for use in conjunction with risk assessment,radiography, and other medical and diagnostic evaluations.The QuantiFERON-TB Gold Plus result is determined bysubtracting the Nil value from either TB antigen (Ag)value. The Mitogen tube serves as a control for the test. M. tuberculosis tuberculin s luz IFN-g Ql (Bld) 0.06 [IU]/mL . [facility] M. tuberculosis tuberculin s luz IFN-g Ql (Bld) 0.07 [IU]/mL . [facility] Blood mitogen stimulated derik ma interferon measurement (units/volume)Ordered By: Mark Win on 12-17-2022 Mitogen stimulated gamma interferon Qn (Bld) >10.00 [IU]/mL . [facility] [place] Positive Critically abnormal Neg ative [facility] Comment on above: Order Comment: Reaso n for Exam Diarrhea Performed By: #### C REAT, LYTES, LIPID, BUN, CBC, PP #### [facility] [address] Note: Normal . [facility] Comment on above: Order Comment: Reaso n for Exam Diarrhea Result Comment: Sugg estive of celiac disease or other gluten-sensitive enteropathies. Subsequent testing for Endomysial Antibody, IgA (071687) and/or genetic testing for Celiac Disease HLA DQ Association (336050) may be indicated for further patient evaluation. Performed at: [address] [id number] Punching Machine Operator: Alfonso Canales MD, Phone: [phone] PERFORMED BY: [place] [address] PATHOLOGIST [employer] TIM CHRISTIAN M.D. Performed By: #### C AMANDA LYGINGER, LIPID, BUN, CBC, PP #### [facility] [place] [facility] [address] [facility] [place] Other C reactive protein [Mass/vol ume] in Serum or PlasmaOrdered By: Mark Win on 12-17-2022 CRP [Mass/Vol] 0.5 mg/dL 0.0-1.0 [facility] C-Reactive Proteinon 023 C-Reactive Protein 0.5 mg/dL Normal 0.0-1.0 [facility] Comment on above: Order Comment: Reaso n for Exam Diarrhea pt is non fasting Performed By: #### C AMANDA LYGINGER, LIPID, BUN, CBC, PP #### [facility] [place] [facility] [address] [place], [place] [id number] [facility] C-Reactive Protein 0.5 mg/dL Normal 0.0-1.0 mg/dL [facility] [employer] Other Calcium [Mass/volume] in Ser um or PlasmaOrdered By: Mark Win on 12-17-2022 Calcium [Mass/Vol] 9.7 mg/dL 8.2-10.2 [facility] Calprotectin [Mass/mass] in StoolOrdered By: Mark Win on 12-17-2022 Calprotectin (Stl) [Mass/Mass] 23 ug/g 0-120 [facility] Comment on above: Concentration Interp retation Follow-Up<16 - 50 ug/g Normal None>50 -120 ug/g Borderline Re-evaluate in 4-6 weeks >120 ug/g Abnormal Repeat as clinically indicatedPerformed at: [employer] [facility] [address] [id number] Director: Alfonso Canales MD, Phone: [phone] Calprotectin, Fecalon 2022 Calprotectin, Fecal 23 0-120 [facility] Other Calprotectin, Fecal 23 Normal 0-120 [facility] Comment on above: Order Comment: Reaso n for Exam Diarrhea Result Comment: Conc entration Interpretation Follow-Up <16 - 50 ug/g Normal None >50 -120 ug/g Borderline Re-evaluate in 4-6 weeks >120 ug/g Abnormal Repeat as clinically indicated Performed at: [employer] [id number] Punching Machine Operator: Alfonso Canales MD, Phone: [phone] PERFORMED BY: [facility] [address] [place] [address] PATHOLOGIST [employer]AR[employer]LLER TIM CHRISTIAN M.D. Performed By: #### C REAT, LYTES, LIPID, BUN, CBC, PP #### [facility] [place] [facility] [address] Carbon dioxide, total [Moles /volume] in Serum or PlasmaOrdered By: Mark Win on 12-17-2022 CO2 [Moles/Vol] 28.7 mmol/L 22.0-30.0 [facility] Chloride [Moles/volume] in S maylin or PlasmaOrdered By: Mark Win on 12-17-2022 Chloride [Moles/Vol] 91 mmol/L 95-114 [facility] Complete Blood Count Auto Di ffon 12-17-2022 Basophils (Bld) [#/Vol] 0.1 10*3/uL Normal 0.0-0.2 [facility] Comment on above: Order Comment: Reaso n for Exam Diarrhea pt is non fasting Performed By: #### C REAT, LYTES, LIPID, BUN, CBC, PP #### [facility] [place] [facility] [address] [id number] [place] Basophils/100 WBC (Bld) 1.1 % Normal . [facility] Comment on above: Order Comment: Reaso n for Exam Diarrhea pt is non fasting Performed By: #### C REAT, LYTES, LIPID, BUN, CBC, PP #### [facility] [address] Eosinophils (Bld) [#/Vol] 0.2 10*3/uL Normal 0.0-0.45 [facility] Comment on above: Order Comment: Reaso n for Exam Diarrhea pt is non fasting Performed By: #### C REAT, LYTES, LIPID, BUN, CBC, PP #### [facility] [address] Eosinophils/100 WBC (Bld) 4.2 % Normal . [facility] Comment on above: Order Comment: Reaso n for Exam Diarrhea pt is non fasting Performed By: #### C REAT, LYTES, LIPID, BUN, CBC, PP #### [facility] [address] Erythrocyte distribution wid th (RBC) [Ratio] 13.2 % Normal 11.9-15.3 [facility] Comment on above: Order Comment: Reaso n for Exam Diarrhea pt is non fasting Performed By: #### C REAT, LYTES, LIPID, BUN, CBC, PP #### [facility] [address] Hematocrit (Bld) [Volume fraction] 38.1 % Normal 34.0-46.4 [facility] Comment on above: Order Comment: Reaso n for Exam Diarrhea pt is non fasting Performed By: #### C REAT, LYTES, LIPID, BUN, CBC, PP #### [facility] [address] Hemoglobin (Bld) [Mass/Vol] 12.8 g/dL Normal 11.8-15. 4 [facility] Comment on above: Order Comment: Reaso n for Exam Diarrhea pt is non fasting Performed By: #### C REAT, LYTES, LIPID, BUN, CBC, PP #### [facility] [address] [place] [address] [place] Lymphocytes (Bld) [#/Vol] 1.6 10*3/uL Normal 1.00-4.8 [facility] Comment on above: Order Comment: Reaso n for Exam Diarrhea pt is non fasting Performed By: #### C REAT, LYTES, LIPID, BUN, CBC, PP #### [facility] [address] Lymphocytes/100 WBC (Bld) 28.9 % Normal . [facility] Comment on above: Order Comment: Reaso n for Exam Diarrhea pt is non fasting Performed By: #### C REAT, LYTES, LIPID, BUN, CBC, PP #### [facility] [address] MCH (RBC) [Entitic mass] 28.7 pg Normal 24.7-34.3 [facility] Comment on above: Order Comment: Reaso n for Exam Diarrhea pt is non fasting Performed By: #### C REAT, LYTES, LIPID, BUN, CBC, PP #### [address] MCV (RBC) [Entitic vol] 85.2 fL Normal 80-100 [facility] Comment on above: Order Comment: Reaso n for Exam Diarrhea pt is non fasting Performed By: #### C REAT, LYTES, LIPID, BUN, CBC, PP #### [address] Mean Corpuscular HGB Conc 33.6 g/dL Normal 32.0-35.0 [facility] Comment on above: Order Comment: Reaso n for Exam Diarrhea pt is non fasting Performed By: #### C REAT, LYTES, LIPID, BUN, CBC, PP #### [address] Monocytes (Bld) [#/Vol] 0.4 10*3/uL Normal 0.0-0.8 [facility] Comment on above: Order Comment: Reaso n for Exam Diarrhea pt is non fasting Performed By: #### C REAT, LYTES, LIPID, BUN, CBC, PP #### [address] [place] [address] [place] Monocytes/100 WBC (Bld) 7.5 % Normal . [facility] Comment on above: Order Comment: Reaso n for Exam Diarrhea pt is non fasting Performed By: #### C REAT, LYTES, LIPID, BUN, CBC, PP #### [facility] [address] Neutrophils (Bld) [#/Vol] 3.2 10*3/uL Normal 1.8-7.7 [facility] Comment on above: Order Comment: Reaso n for Exam Diarrhea pt is non fasting Performed By: #### C REAT, LYTES, LIPID, BUN, CBC, PP #### [address] Neutrophils/100 WBC (Bld) 58.3 % Normal . [facility] Comment on above: Order Comment: Reaso n for Exam Diarrhea pt is non fasting Performed By: #### C REAT, LYTES, LIPID, BUN, CBC, PP #### [address] NRBC% 0.1 /100{WBC} Normal 0-0.5 [facility] Comment on above: Order Comment: Reaso n for Exam Diarrhea pt is non fasting Performed By: #### C REAT, LYTES, LIPID, BUN, CBC, PP #### [address] Platelet mean volume (Bld) [Entitic vol] 7.7 fL Normal 6.3-10.7 [facility] Comment on above: Order Comment: Reaso n for Exam Diarrhea pt is non fasting Performed By: #### C REAT, LYTES, LIPID, BUN, CBC, PP #### [place] [address] [place] Platelets (Bld) [#/Vol] 200 10*3/uL Normal 150-450 [facility] Comment on above: Order Comment: Reaso n for Exam Diarrhea pt is non fasting Performed By: #### C REAT, LYTES, LIPID, BUN, CBC, PP #### [address] [place] [address] [place] RBC (Bld) [#/Vol] 4.47 10*6/uL Normal 3.60-5.00 [facility] Comment on above: Order Comment: Reaso n for Exam Diarrhea pt is non fasting Performed By: #### C REAT, LYTES, LIPID, BUN, CBC, PP #### [facility] [place] [facility] [address] WBC (Bld) [#/Vol] 5.4 10*3/uL Normal 3.8-11.6 [facility] Comment on above: Order Comment: Reaso n for Exam Diarrhea pt is non fasting Performed By: #### C REAT, LYTES, LIPID, BUN, CBC, PP #### [facility] [address] Basophils (Bld) [#/Vol] [id number] 10*3/uL Normal 0.0-0.2 10*3/uL [facility] Other Basophils/100 WBC (Bld) 1.100 % . % [facility] Other Eosinophils (Bld) [#/Vol] [id number] 10*3/uL Normal 0.0-0.45 10*3/uL [facility] Other Eosinophils/100 WBC (Bld) 4.200 % . % [facility] Other Erythrocyte distribution width (RBC) [Ratio] 13.200 % Normal 11.9-15.3 % [facility] Other Hematocrit (Bld) [Volume fraction] 38.100 % Normal 34.0-46.4 % [facility] Other Hemoglobin (Bld) [Mass/Vol] 12.221822 g/dL Normal 11.8-15.4 g/dL [employer] Other Lymphocytes (Bld) [#/Vol] [id number] 10*3/uL Normal 1.00-4.8 10*3/uL [employer] Other Lymphocytes/100 WBC (Bld) 28.900 % . % [employer] Other MCH (RBC) [Entitic mass] 28.7000 pg Normal 24.7-34.3 pg [employer] Other MCV (RBC) [Entitic vol] 85.2000 fL Normal 80-100 fL [employer] Other Monocytes (Bld) [#/Vol] 0.850483006 10*3/uL Normal 0.0-0.8 10*3/uL [employer] Other Monocytes/100 WBC (Bld) 7.500 % . % [employer] Other Neutrophils (Bld) [#/Vol] 3.330897179 10*3/uL Normal 1.8-7.7 10*3/uL [employer] Other Neutrophils/100 WBC (Bld) 58.300 % . % [employer] Other Platelet mean volume (Bld) [Entitic vol] 7.7000 fL Normal 6.3-10.7 fL [employer] Other WBC (Bld) [#/Vol] 5.563559598 10*3/uL Normal 3.8-11.6 10*3/uL [employer] Other Complete Blood Count Auto Diff 5.4 10*3/uL Normal 3.8-11.6 10*3/uL [employer] Other Complete Blood Count Auto Diff 33.6 g/dL Normal 32.0-35.0 g/dL [employer] Other Complete Blood Count Auto Diff 0.1 /100{WBC} Normal 0-0.5 /100{WBC} [employer] Other Comprehensive Metabolic Pane hany 12-17-2022 Albumin [Mass/Vol] 4.0 g/dL Normal 3.2-5.5 [facility] Comment on above: Order Comment: Reaso n for Exam Diarrhea pt is non fasting Performed By: #### C REAT, LYTES, LIPID, BUN, CBC, PP #### [facility] [address] Albumin/Globulin [Mass ratio] 1.8 {ratio} Normal [facility] Comment on above: Order Comment: Reaso n for Exam Diarrhea pt is non fasting Performed By: #### C REAT, LYTES, LIPID, BUN, CBC, PP #### [facility] [address] ALP [Catalytic activity/Vol] 40 U/L Normal 32-92 [facility] Comment on above: Order Comment: Reaso n for Exam Diarrhea pt is non fasting Performed By: #### C REAT, LYTES, LIPID, BUN, CBC, PP #### [facility] [address] ALT [Catalytic activity/Vol] 25 U/L Normal 10-60 [employer] Other Comment on above: Order Comment: Reaso n for Exam Diarrhea pt is non fasting Performed By: #### C REAT, LYTES, LIPID, BUN, CBC, PP #### [facility] [address] [place] [id number] [facility] Anion gap [Moles/Vol] 11.5 mmol/L Normal 6.0-15.0 [facility] Comment on above: Order Comment: Reaso n for Exam Diarrhea pt is non fasting Performed By: #### C REAT, LYTES, LIPID, BUN, CBC, PP #### [facility] [address] [place] [id number] [facility] AST [Catalytic activity/Vol] 31 U/L Normal 10-42 [facility] Comment on above: Order Comment: Reaso n for Exam Diarrhea pt is non fasting Performed By: #### C REAT, LYTES, LIPID, BUN, CBC, PP #### [facility] [address] [place] [id number] [place] Bilirubin [Mass/Vol] 0.6 mg/dL Normal 0.3-1.2 [facility] Comment on above: Order Comment: Reaso n for Exam Diarrhea pt is non fasting Performed By: #### C REAT, LYTES, LIPID, BUN, CBC, PP #### [facility] [address] Calcium [Mass/Vol] 9.7 mg/dL Normal 8.2-10.2 [facility] Comment on above: Order Comment: Reaso n for Exam Diarrhea pt is non fasting Performed By: #### C REAT, LYTES, LIPID, BUN, CBC, PP #### [facility] [address] Chloride [Moles/Vol] 91 mmol/L Low 95-114 [facility] Comment on above: Order Comment: Reaso n for Exam Diarrhea pt is non fasting Performed By: #### C REAT, LYTES, LIPID, BUN, CBC, PP #### [facility] [address] CO2 [Moles/Vol] 28.7 mmol/L Normal 22.0-30.0 [facility] Comment on above: Order Comment: Reaso n for Exam Diarrhea pt is non fasting Performed By: #### C REAT, LYTES, LIPID, BUN, CBC, PP #### [facility] [address] Creatinine [Mass/Vol] 0.62 mg/dL Normal 0.44-1.03 [facility] Comment on above: Order Comment: Reaso n for Exam Diarrhea pt is non fasting Performed By: #### C REAT, LYTES, LIPID, BUN, CBC, PP #### [facility] [address] Estimated GFR ( Sharmila > 60 Normal [facility] Comment on above: Order Comment: Reaso n for Exam Diarrhea pt is non fasting Result Comment: GFR estimated reference range: According to KDOQI guidelines, <60 ml/min/1.73m2 is sufficient to diagnose a patient with chronic kidney disease. Performed By: #### C REAT, LYTES, LIPID, BUN, CBC, PP #### [facility] [address] Estimated GFR (Non- Am > 60 Normal [facility] Comment on above: Order Comment: Reaso n for Exam Diarrhea pt is non fasting Performed By: #### C REAT, LYTES, LIPID, BUN, CBC, PP #### [facility] [address] Globulin (S) [Mass/Vol] 2.2 g/dL Normal [facility] Comment on above: Order Comment: Reaso n for Exam Diarrhea pt is non fasting Performed By: #### C REAT, LYTES, LIPID, BUN, CBC, PP #### [facility] [address] Glucose [Mass/Vol] 132 mg/dL High 70-100 [facility] Comment on above: Order Comment: Reaso n for Exam Diarrhea pt is non fasting Result Comment: [facility] Glucose Reference Range is dependent on time and content of last meal. Glucose of more than 200 mg/dL in a nonstressed, ambulatory subject supports the diagnosis of Diabetes Mellitus. ADA recommended reference range Performed By: #### C REAT, LYTES, LIPID, BUN, CBC, PP #### [facility] [address] Potassium [Moles/Vol] 4.2 mmol/L Normal 3.5-5.1 [facility] Comment on above: Order Comment: Reaso n for Exam Diarrhea pt is non fasting Performed By: #### C REAT, LYTES, LIPID, BUN, CBC, PP #### [facility] [address] Protein [Mass/Vol] 6.2 g/dL Normal 6.1-7.9 [facility] Comment on above: Order Comment: Reaso n for Exam Diarrhea pt is non fasting Performed By: #### C REAT, LYTES, LIPID, BUN, CBC, PP #### [facility] [address] Sodium [Moles/Vol] 127 mmol/L Low 136-146 [facility] Comment on above: Order Comment: Reaso n for Exam Diarrhea pt is non fasting Performed By: #### C REAT, LYTES, LIPID, BUN, CBC, PP #### [facility] [address] [place] [id number] [place] Urea nitrogen [Mass/Vol] 12 mg/dL Normal 9-23 [facility] Comment on above: Order Comment: Reaso n for Exam Diarrhea pt is non fasting Performed By: #### C REAT, LYTES, LIPID, BUN, CBC, PP #### [facility] [address] [place] [id number] [facility] Albumin [Mass/Vol] 4.899851 g/dL Normal 3.2-5.5 g/dL [facility] [employer] Other Bilirubin [Mass/Vol] 0.1296797 mg/dL Normal 0.3-1.2 mg /dL [employer] Other Calcium [Mass/Vol] 9.7601067 mg/dL Normal 8.2-10.2 mg/ dL [employer] Other CO2 [Moles/Vol] 28.70570935 mmol/L Normal 22.0-30.0 mmol/L [employer] Other Creatinine [Mass/Vol] 0.36107867 mg/dL Normal 0.44-1.0 3 mg/dL [employer] Other Potassium [Moles/Vol] 4.24800064 mmol/L Normal 3.5-5.1 mmol/L [employer] Other Protein [Mass/Vol] 6.586784 g/dL Normal 6.1-7.9 g/dL [facility] [place] [employer] Other Comprehensive Metabolic Panel > 60 [employer] Other Comprehensive Metabolic Panel 2.2 g/dL [employer] Other Creatinine and Glomerular fi ltration rate.predicted panel (S/P/Bld)Ordered By: Mark Win on 12-17-2022 Creatinine [Mass/Vol] 0.62 mg/dL 0.44-1.03 [facility] Elastase.pancreatic [Mass/ma ss] in StoolOrdered By: Mark Win on 12-17-2022 Elastase.pancreatic (Stl) [Mass/Mass] 212 >200 [facility] Comment on above: Result Units: ug Dione st./g Severe Pancreatic Insufficiency: <100 Moderate Pancreatic Insufficiency: 100 - 200 Normal: >200Performed at: - [facility] [id number] Director: Alfonso Canales MD, Phone: [phone] Eosinophils Auto (Bld) [#/Vo l]Ordered By: Mark Win on 12-17-2022 Eosinophils (Bld) [#/Vol] 0.2 10*3/uL 0.0-0.45 [facility] Eosinophils/100 WBC Auto (Bl d)Ordered By: Mark Win on 12-17-2022 Eosinophils/100 WBC (Bld) 4.2 % . [facility] Erythrocyte Sedimentation Ra radha 12-17-2022 ESR (Bld) [Velocity] 5 mm/h Normal 0-29 [facility] [employer] Other Comment on above: Order Comment: Reaso n for Exam Diarrhea pt is non fasting Result Comment: PERF ORMED BY: [place] [address] PATHOLOGIST [employer] TIM CHRISTIAN M.D. Performed By: #### C REAT, LYTES, LIPID, BUN, CBC, PP #### [facility] [address] [place] [address] Erythrocyte distribution wid th Auto (RBC) [Ratio]Ordered By: Mark Win on 12-17-2022 Erythrocyte distribution wid th (RBC) [Ratio] 13.2 % 11.9-15.3 [facility] Erythrocyte sedimentation ra te by Photometric methodOrdered By: Mark Win on 12-17-2022 ESR Photometric method (Bld) [Velocity] 5 mm/hr 0-29 [facility] Erythrocytes [#/volume] in B lood by Automated countOrdered By: Mark Win on 12-17-2022 RBC (Bld) [#/Vol] 4.47 10*6/uL 3.60-5.00 [facility] Estimated glomerular filtrat ion rate (GFR) non- AmericanOrdered By: Mark Win on 12-17-2022 GFR/1.73 sq M.predicted di g non-blacks MDRD (S/P/Bld) [Vol rate/Area] > 60 mL/Min [facility] Gliadin peptide+tissue trans glutaminase IgA+IgG Ab [Presence] in Serum by ImmunoassayOrdered By: Mark Win on 12-17-2022 Gliadin peptide+tissue transglutaminase IgA+IgG IA Ql (S) Positive Negative [facility] Globulin Calc (S) [Mass/Vol] Ordered By: Mark Win on 12-17-2022 Globulin (S) [Mass/Vol] 2.2 g/dL [facility] Glucose [Mass/volume] in Ser um or PlasmaOrdered By: Mark Win on 12-17-2022 Glucose [Mass/Vol] 132 mg/dL 70-100 [facility] Comment on above: ADA recommended refe rence rangeRandom Glucose Reference Range is dependent on time and content of last meal. Glucose of more than 200 mg/dL in a nonstressed, ambulatory subject supports the diagnosis of Diabetes Mellitus. Hematocrit Auto (Bld) [Volum e fraction]Ordered By: Mark Win on 12-17-2022 Hematocrit (Bld) [Volume fraction] 38.1 % 3 4.0-46.4 [facility] Hemoglobin [Mass/volume] in BloodOrdered By: Mark Win on 12-17-2022 Hemoglobin (Bld) [Mass/Vol] 12.8 g/dL 11.8-15. 4 [facility] Laboratory - CoagulationOrde red By: Mark Win on 12-17-2022 PT Coag (PPP) [Time] 12.6 s 9.0-12.9 [facility] Lactoferrin, Stool WBCon Lactoferrin, Stool WBC Reason for Exam Diarrhea Stool Reason for Exam: Diarrhea : Stool LACTOFERRIN Negative for Fecal Lactoferrin Immune suppression may cause reduced WBC counts, leading to a false negative result. Reference range = Negative PERFORMED BY: [facility] [address] [place] [address] PATHOLOGIST [employer] TIM CHRISTIAN M.D. Normal [facility] Comment on above: Performed By: #### C REAT, LYGINGER, LIPID, BUN, CBC, PP #### [facility] [address] Lactoferrin, Stool WBC No [employer] Other Leukocytes [#/volume] correc ryanne for nucleated erythrocytes in Blood by Automated counOrdered By: Mark Win on 12-17-2022 WBC corrected for nucl RBC A uto (Bld) [#/Vol] 5.4 10*3/uL 3.8-11.6 [facility] Lymphocytes Auto (Bld) [#/Vo l]Ordered By: Mark Win on 12-17-2022 Lymphocytes (Bld) [#/Vol] 1.6 10*3/uL 1.00-4.8 [facility] Lymphocytes/100 WBC Auto (Bl d)Ordered By: Mark Win on 12-17-2022 Lymphocytes/100 WBC (Bld) 28.9 % . [facility] MCH Auto (RBC) [Entitic mass ]Ordered By: Mark Win on 12-17-2022 MCH (RBC) [Entitic mass] 28.7 pg 24.7-34.3 [facility] MCHC Auto (RBC) [Mass/Vol]Or dered By: Mark Win on 12-17-2022 MCHC (RBC) [Mass/Vol] 33.6 g/dL 32.0-35.0 [facility] MCV Auto (RBC) [Entitic vol] Ordered By: Mark Win on 12-17-2022 MCV (RBC) [Entitic vol] 85.2 fL 80-100 [facility] Monocytes Auto (Bld) [#/Vol] Ordered By: Mark Win on 12-17-2022 Monocytes (Bld) [#/Vol] 0.4 10*3/uL 0.0-0.8 [facility] Monocytes/100 WBC Auto (Bld) Ordered By: Mark Win on 12-17-2022 Monocytes/100 WBC (Bld) 7.5 % . [facility] Mycobacterium tuberculosis s timulated gamma interferon [Interpretation] in Blood QualOrdered By: Mark Win on 12-17-2022 M. tuberculosis stim IFN-g Q l (Bld) [Interp] Negative Negative [facility] Comment on above: No response to M tub erculosis antigens detected.Infection with M tuberculosis is unlikely, but high riskindividuals should be considered for additional testing(ATS/IDSA/CDC Clinical Practice Guidelines, 2017). Thereference range is an Antigen minus Nil result of <0.35IU/mL.The specimen received for QuantiFERON testing was incubatedby the ordering institution. Specific procedures outlinedin our Directory of Services and in the package insert forthe QuantiFERON Gold (In Tube) test must be followed toenable for proper stimulation of cells for the productionof interferon gamma. Chemiluminescence immunoassaymethodologyPerformed at: The 19th Floor [facility] [id number] Director: Donny Lance PhD, Phone: [phone] Neutrophils Auto (Bld) [#/Vo l]Ordered By: Mark Win on 12-17-2022 Neutrophils (Bld) [#/Vol] 3.2 10*3/uL 1.8-7.7 [facility] Neutrophils/100 WBC Auto (Bl d)Ordered By: Mark Win on 12-17-2022 Neutrophils/100 WBC (Bld) 58.3 % . [facility] No Panel InformationOrdered By: Mark Win on 12-17-2022 Estimated GFR () > 60 mL/Min [facility] Comment on above: GFR estimated refere nce range: According to KDOQI guidelines, <60 ml/min/1.73m2 is sufficient to diagnose a patient with chronic kidney disease. Inflammatory Bowel Disease 7 Note See comment . [facility] Comment on above: Suggestive of celiac disease or other gluten- sensitiveenteropathies. Subsequent testing for Endomysial Antibody,IgA (377210) and/or genetic testing for Celiac Disease HLADQ Association (303615) may be indicated for furtherpatient evaluation.Performed at: [facility] [address] [id number] Director: Alfonso Canales MD, Phone: [phone] Pharmacy Creatinine Clearance (Chem N/A [facility] Nucleated erythrocytes [Pres ence] in Blood by Automated countOrdered By: Mark Win on 12-17-2022 Nucleated RBC Auto Ql (Bld) 0.1 /100{WBC} 0-0.5 [facility] Pancreatic Elastase, Stoolon 12-17-2022 Pancreatic Elastase, Stool 212 >200 [employer] Other Pancreatic Elastase, Stool 212 Normal >200 [facility] Comment on above: Order Comment: Reaso n for Exam Diarrhea Result Comment: Resu lt Units: ug Elast./g Severe Pancreatic Insufficiency: <100 Moderate Pancreatic Insufficiency: 100 - 200 Normal: >200 Performed at: [facility] [address] [id number] Punching Machine Operator: Alfonso Canales MD, Phone: [phone] Performed By: #### C REAT, LYTES, LIPID, BUN, CBC, PP #### [address] Platelet mean volume Auto (B ld) [Entitic vol]Ordered By: Mark Win on 12-17-2022 Platelet mean volume (Bld) [Entitic vol] 7.7 fL 6.3-10.7 [facility] Platelet poor plasma interna tional normalized ratio (INR) by coagulation assay (relatOrdered By: Mark Win on 12-17-2022 INR Coag (PPP) [Relative time] 1.1 {INR} [facility] Comment on above: INR Therapeutic Rang e A) Pre- and Peroperative OAT started two weeks before surgery. NOT HIP SURGERY: 1.5 - 2.5 HIP SURGERY: 2 - 3B) Primary and secondary prevention of venous THROMBOSIS: 2 - 3C) Active venous thrombosis, pulmonary embolismand prevention of recurrent venous thrombosis: 2 - 3D) Prevention of arterial thromboembolismincluding patients with mechanical heart valves: 3 - 4.5 Platelets [#/volume] in Bloo d by Automated countOrdered By: Mark Win on 12-17-2022 Platelets (Bld) [#/Vol] 200 10*3/uL 150-450 [facility] Potassium [Moles/volume] in Serum or PlasmaOrdered By: Mark Win on 12-17-2022 Potassium [Moles/Vol] 4.2 mmol/L 3.5-5.1 [facility] Protein [Mass/volume] in Ser um or PlasmaOrdered By: Mark Win on 12-17-2022 Protein [Mass/Vol] 6.2 g/dL 6.1-7.9 [facility] Prothrombin Time INRon 12-17 INR Coag (PPP) [Relative time] 1.1 {INR} Normal [facility] Comment on above: Order Comment: Reaso n for Exam Diarrhea pt is non fasting Result Comment: INR Therapeutic Range A) Pre- and Peroperative OAT started two weeks before surgery. NOT HIP SURGERY: 1.5 - 2.5 HIP SURGERY: 2 - 3 B) Primary and secondary prevention of venous THROMBOSIS: 2 - 3 C) Active venous thrombosis, pulmonary embolism and prevention of recurrent venous thrombosis: 2 - 3 D) Prevention of arterial thromboembolism including patients with mechanical heart valves: 3 - 4.5 PERFORMED BY: [place] [address] PATHOLOGIST [employer] TIM CHRISTIAN M.D. Performed By: #### C REAT, LYTES, LIPID, BUN, CBC, PP #### [address] PT Coag (PPP) [Time] 12.6 s Normal 9.0-12.9 [facility] Comment on above: Order Comment: Reaso n for Exam Diarrhea pt is non fasting Performed By: #### C REAT, LYTES, LIPID, BUN, CBC, PP #### [facility] [address] [place] [id number] [facility] PT Coag (PPP) [Time] 12.600 s Normal 9.0-12.9 [employer] Other QuantiFERON TB Goldon 2022 QFTB Criteria Normal . [facility] Comment on above: Order Comment: Reaso n for Exam Diarrhea Result Comment: Portillo tiFERON-TB Gold Plus is a qualitative indirect test for M tuberculosis infection (including disease) and is intended for use in conjunction with risk assessment, radiography, and other medical and diagnostic evaluations. The QuantiFERON-TB Gold Plus result is determined by subtracting the Nil value from either TB antigen (Ag) value. The Mitogen tube serves as a control for the test. Performed By: #### C REAT, LYTES, LIPID, BUN, CBC, PP #### [facility] [address] Quant TB Ag Value 0.06 Normal . [facility] Comment on above: Order Comment: Reaso n for Exam Diarrhea Performed By: #### C REAT, LYTES, LIPID, BUN, CBC, PP #### [facility] [address] Quant TB Gold Plus Negative Normal Negative [facility] Comment on above: Order Comment: Reaso n for Exam Diarrhea Result Comment: No r esponse to M tuberculosis antigens detected. Infection with M tuberculosis is unlikely, but high risk individuals should be considered for additional testing (ATS/IDSA/CDC Clinical Practice Guidelines, 2017). The reference range is an Antigen minus Nil result of <0.35 IU/mL. The specimen received for QuantiFERON testing was incubated by the ordering institution. Specific procedures outlined in our Directory of Services and in the package insert for the QuantiFERON Gold (In Tube) test must be followed to enable for proper stimulation of cells for the production of interferon gamma. Chemiluminescence immunoassay methodology Performed at: [facility] [employer] [address] [id number] Punching Machine Operator: Donny Lance PhD, Phone: [phone] PERFORMED BY: [facility] [address] [place] [phone] PATHOLOGIST [employer] TIM CHRISTIAN M.D. Performed By: #### C REAT, LYTES, LIPID, BUN, CBC, PP #### [facility] [address] Quant TB2 Ag Value 0.06 Normal . [facility] Comment on above: Order Comment: Reaso n for Exam Diarrhea Performed By: #### C REAT, LYTES, LIPID, BUN, CBC, PP #### [facility] [address] [place] [address] [place] Quantiferon Nil Value 0.07 Normal . [facility] Comment on above: Order Comment: Reaso n for Exam Diarrhea Performed By: #### C REAT, LYTES, LIPID, BUN, CBC, PP #### [facility] [address] [place] [address] [place] Quantiferon TB Mitogen >10.00 Normal . [facility] Comment on above: Order Comment: Reaso n for Exam Diarrhea Performed By: #### C REAT, LYTES, LIPID, BUN, CBC, PP #### [facility] [address] [place] [address] [place] QuantiFERON TB Gold . [facility] [employer] Other QuantiFERON TB Gold 0.06 . [employer] Other QuantiFERON TB Gold 0.07 . [facility] [employer] Other QuantiFERON TB Gold >10.00 . [facility] [employer] Other Serum or plasma alanine gorman otransferase measurement without P-5'-P (enzymatic activiOrdered By: Mark Win on 12-17-2022 ALT No additional P-5'-P [Ca talytic activity/Vol] 25 U/L 10-60 [facility] Serum or plasma albumin/glob ulin mass ratioOrdered By: Mark Win on 12-17-2022 Albumin/Globulin [Mass ratio] 1.8 {ratio} [facility] Serum or plasma anion gap de terminationOrdered By: Mark Win on 12-17-2022 Anion gap [Moles/Vol] 11.5 mmol/L 6.0-15.0 [facility] Sodium [Moles/volume] in Ser um or PlasmaOrdered By: Mark Win on 12-17-2022 Sodium [Moles/Vol] 127 mmol/L 136-146 [facility] Stool lactoferrin detectionO rdered By: Mark Win on 12-17-2022 Lactoferrin Ql (Stl) [facility] Lactoferrin Ql (Stl) [facility] THYROID SCREENon 12-17-2022 Free T4 [Mass/Vol] 0.86 ng/dL Normal 0.61-1.12 [facility] Comment on above: Order Comment: Reaso n for Exam Diarrhea pt is non fasting Performed By: #### C REAT, LYTES, LIPID, BUN, CBC, PP #### [facility] [address] TSH Qn 1.36 m[IU]/L Normal 0.45-5.33 [facility] Comment on above: Order Comment: Reaso n for Exam Diarrhea pt is non fasting Result Comment: PERF ORMED BY: [facility] [address] [place] [address] PATHOLOGIST [employer] TIM CHRISTIAN M.D. Performed By: #### C REAT, LYTES, LIPID, BUN, CBC, PP #### [facility] [address] Free T4 [Mass/Vol] 0.92552818 ng/dL Normal 0.61-1.12 n g/dL [facility] [employer] Other TSH Qn 1.27150087091 m[IU]/L Normal 0.45-5.33 u[iU]/mL [employer] Other TSH DL <= 0.005 mIU/L QnOrde red By: Mark Win on 12-17-2022 TSH Qn 1.36 m[IU]/L 0.45-5.33 [facility] Thyroxine (T4) free [Mass/vo lume] in Serum or PlasmaOrdered By: Mark Win on 12-17-2022 Free T4 [Mass/Vol] 0.86 ng/dL 0.61-1.12 [facility] Urea nitrogen [Mass/volume] in Serum or PlasmaOrdered By: Mark Win on 12-17-2022 Urea nitrogen [Mass/Vol] 12 mg/dL 9-23 [facility] WBC Auto (Bld) [#/Vol]Ordere d By: Mark Win on 12-17-2022 WBC (Bld) [#/Vol] 5.4 10*3/uL 3.8-11.6 [facility] Whole blood measurement of M ycobacterium tuberculosis stimulated gamma interferon relOrdered By: Mark Win on 12-17-2022 M. tuberculosis stim IFN-g b y CD4+ CD8+ T-cells corrected for background Qn (Bld) 0.06 [IU]/mL . [facility] Activated partial thrombopla stin time (aPTT) in platelet poor plasma by coagulation aOrdered By: Jordy Berry on 12-12-2022 aPTT Coag (PPP) [Time] 32.2 s 25.1-36.5 [facility] Automated erythrocytes count in urine sediment (number/area)Ordered By: Jordy Berry on 12-12-2022 RBC Auto (Urine sed) [#/Area] None seen [HPF] 0 -4 [facility] Automated leukocytes count i n urine sediment (number/area)Ordered By: Jordy Berry on 12-12-2022 WBC Auto (Urine sed) [#/Area] 1-2 [HPF] 0-4 [facility] B-Type Natriuretic Peptideon 12-12-2022 Natriuretic peptide B (Bld) [Mass/Vol] 78.0 pg/mL Normal 5-100 [facility] Comment on above: Result Comment: PERF ORMED BY: [address] [address] PATHOLOGIST [employer] TIM CHRISTIAN M.D. Performed By: #### C REAT, LYTES, LIPID, BUN, CBC, PP #### [facility] [address] Basic Metabolic Panelon 03-0 Anion gap [Moles/Vol] 12.2 mmol/L Normal 6.0-15.0 [facility] Comment on above: Performed By: #### C REAT, LYTES, LIPID, BUN, CBC, PP #### [facility] [address] Calcium [Mass/Vol] 9.9 mg/dL Normal 8.2-10.2 [facility] Comment on above: Performed By: #### C REAT, LYTES, LIPID, BUN, CBC, PP #### [address] Chloride [Moles/Vol] 92 mmol/L Low 95-114 [facility] Comment on above: Performed By: #### C REAT, LYTES, LIPID, BUN, CBC, PP #### [address] CO2 [Moles/Vol] 27.0 mmol/L Normal 22.0-30.0 [facility] Comment on above: Performed By: #### C REAT, LYTES, LIPID, BUN, CBC, PP #### [address] Creatinine [Mass/Vol] 0.63 mg/dL Normal 0.44-1.03 [facility] Comment on above: Performed By: #### C REAT, LYTES, LIPID, BUN, CBC, PP #### [address] Creatinine Clr Calc Pharmacy 40.92 [facility] Comment on above: Result Comment: PERF ORMED BY: [place] [address] PATHOLOGIST [employer] TIM CHRISTIAN M.D. Performed By: #### C REAT, LYTES, LIPID, BUN, CBC, PP #### [address] Estimated GFR ( Sharmila > 60 Normal [facility] Comment on above: Result Comment: GFR estimated reference range: According to KDOQI guidelines, <60 ml/min/1.73m2 is sufficient to diagnose a patient with chronic kidney disease. Performed By: #### C REAT, LYTES, LIPID, BUN, CBC, PP #### [facility] [address] Estimated GFR (Non- Am > 60 Normal [facility] Comment on above: Performed By: #### C REAT, LYTES, LIPID, BUN, CBC, PP #### [facility] [address] Glucose [Mass/Vol] 102 mg/dL High 70-100 [facility] Comment on above: Result Comment: [place] Glucose Reference Range is dependent on time and content of last meal. Glucose of more than 200 mg/dL in a nonstressed, ambulatory subject supports the diagnosis of Diabetes Mellitus. ADA recommended reference range Performed By: #### C REAT, LYTES, LIPID, BUN, CBC, PP #### [facility] [address] Potassium [Moles/Vol] 4.2 mmol/L Normal 3.5-5.1 [facility] Comment on above: Performed By: #### C REANTHONY, LYTES, LIPID, BUN, CBC, PP #### [facility] [address] Sodium [Moles/Vol] 127 mmol/L Low 136-146 [facility] Comment on above: Performed By: #### C REANTHONY, LYTES, LIPID, BUN, CBC, PP #### [facility] [address] Urea nitrogen [Mass/Vol] 11 mg/dL Normal 9-23 [facility] Comment on above: Performed By: #### C REAT, LYTES, LIPID, BUN, CBC, PP #### [facility] [address] Basophils Auto (Bld) [#/Vol] Ordered By: Jordy Berry on 12-12-2022 Basophils (Bld) [#/Vol] 0.1 10*3/uL 0.0-0.2 [facility] Basophils/100 WBC Auto (Bld) Ordered By: Jordy Berry on 12-12-2022 Basophils/100 WBC (Bld) 0.9 % . [facility] Bilirubin Test strip Ql (U)O rdered By: Jordy Berry on 12-12-2022 Bilirubin Ql (U) Negative Negative [facility] Calcium [Mass/volume] in Ser um or PlasmaOrdered By: Jordy Berry on 12-12-2022 Calcium [Mass/Vol] 9.9 mg/dL 8.2-10.2 [facility] Carbon dioxide, total [Moles /volume] in Serum or PlasmaOrdered By: Jordy Berry on 12-12-2022 CO2 [Moles/Vol] 27.0 mmol/L 22.0-30.0 [facility] Chloride [Moles/volume] in S maylin or PlasmaOrdered By: Jordy Berry on 12-12-2022 Chloride [Moles/Vol] 92 mmol/L 95-114 [facility] Color Auto (U)Ordered By: Christine Berry on 12-12-2022 Color (U) Yellow Yellow [facility] Complete Blood Count Auto Di ffon 12-12-2022 Basophils (Bld) [#/Vol] 0.1 10*3/uL Normal 0.0-0.2 [facility] Comment on above: Result Comment: PERF ORMED BY: [place] [address] PATHOLOGIST [employer] TIM CHRISTIAN M.D. Performed By: #### C REAT, LYTES, LIPID, BUN, CBC, PP #### [facility] [address] Basophils/100 WBC (Bld) 0.9 % Normal . [facility] Comment on above: Performed By: #### C REAT, LYTES, LIPID, BUN, CBC, PP #### [facility] [address] Eosinophils (Bld) [#/Vol] 0.2 10*3/uL Normal 0.0-0.45 [facility] Comment on above: Performed By: #### C REAT, LYTES, LIPID, BUN, CBC, PP #### [address] Eosinophils/100 WBC (Bld) 2.6 % Normal . [facility] Comment on above: Performed By: #### C REAT, LYTES, LIPID, BUN, CBC, PP #### [address] Erythrocyte distribution wid th (RBC) [Ratio] 13.4 % Normal 11.9-15.3 [facility] Comment on above: Performed By: #### C REAT, LYTES, LIPID, BUN, CBC, PP #### [address] Hematocrit (Bld) [Volume fraction] 39.3 % Normal 34.0-46.4 [facility] Comment on above: Performed By: #### C REAT, LYTES, LIPID, BUN, CBC, PP #### [address] Hemoglobin (Bld) [Mass/Vol] 13.2 g/dL Normal 11.8-15. 4 [facility] Comment on above: Performed By: #### C REAT, LYTES, LIPID, BUN, CBC, PP #### [address] Lymphocytes (Bld) [#/Vol] 1.4 10*3/uL Normal 1.00-4.8 [facility] Comment on above: Performed By: #### C REAT, LYTES, LIPID, BUN, CBC, PP #### [address] Lymphocytes/100 WBC (Bld) 21.5 % Normal . [facility] Comment on above: Performed By: #### C REAT, LYTES, LIPID, BUN, CBC, PP #### [address] MCH (RBC) [Entitic mass] 28.5 pg Normal 24.7-34.3 [facility] Comment on above: Performed By: #### C REAT, LYTES, LIPID, BUN, CBC, PP #### [address] MCV (RBC) [Entitic vol] 84.8 fL Normal 80-100 [facility] Comment on above: Performed By: #### C REAT, LYTES, LIPID, BUN, CBC, PP #### [address] Mean Corpuscular HGB Conc 33.6 g/dL Normal 32.0-35.0 [facility] Comment on above: Performed By: #### C REAT, LYTES, LIPID, BUN, CBC, PP #### [address] Monocytes (Bld) [#/Vol] 0.5 10*3/uL Normal 0.0-0.8 [facility] Comment on above: Performed By: #### C REAT, LYTES, LIPID, BUN, CBC, PP #### [address] Monocytes/100 WBC (Bld) 15.78 % Normal 0.00-20.00 [facility] Comment on above: Performed By: #### C REAT, LYTES, LIPID, BUN, CBC, PP #### [address] Monocytes/100 WBC (Bld) 7.8 % Normal . [facility] Comment on above: Performed By: #### C REAT, LYTES, LIPID, BUN, CBC, PP #### [place] [address] [place] Neutrophils (Bld) [#/Vol] 4.5 10*3/uL Normal 1.8-7.7 [facility] Comment on above: Performed By: #### C REAT, LYTES, LIPID, BUN, CBC, PP #### [place] [address] [place] Neutrophils/100 WBC (Bld) 67.2 % Normal . [facility] Comment on above: Performed By: #### C REAT, LYTES, LIPID, BUN, CBC, PP #### [address] NRBC% 0.2 /100{WBC} Normal 0-0.5 [facility] Comment on above: Performed By: #### C REAT, LYTES, LIPID, BUN, CBC, PP #### [address] Platelet mean volume (Bld) [Entitic vol] 7.4 fL Normal 6.3-10.7 [facility] Comment on above: Performed By: #### C REAT, LYTES, LIPID, BUN, CBC, PP #### [address] Platelets (Bld) [#/Vol] 204 10*3/uL Normal 150-450 [facility] Comment on above: Performed By: #### C REAT, LYTES, LIPID, BUN, CBC, PP #### [address] RBC (Bld) [#/Vol] 4.63 10*6/uL Normal 3.60-5.00 [facility] Comment on above: Performed By: #### C REAT, LYTES, LIPID, BUN, CBC, PP #### [address] WBC (Bld) [#/Vol] 6.7 10*3/uL Normal 3.8-11.6 [facility] Comment on above: Performed By: #### C REAT, LYTES, LIPID, BUN, CBC, PP #### [address] Creatine Kinaseon 12-12-2022 CK [Catalytic activity/Vol] 41 U/L Normal 22-269 [facility] Comment on above: Performed By: #### C REAT, LYTES, LIPID, BUN, CBC, PP #### [address] Creatine kinase [Enzymatic a ctivity/volume] in Serum or PlasmaOrdered By: Jordy Berry on 12-12-2022 CK [Catalytic activity/Vol] 41 U/L 22-269 [facility] Creatine kinase.MB [Mass/vol ume] in Serum or PlasmaOrdered By: Jordy Berry on 12-12-2022 CK.MB [Mass/Vol] 1.6 ng/mL 0.6-6.3 [facility] Creatinine Kinase MBon 12-12 CK.MB [Mass/Vol] 1.6 ng/mL Normal 0.6-6.3 [facility] Comment on above: Performed By: #### C REAT, LYTES, LIPID, BUN, CBC, PP #### [facility] [address] CKMB Relative Index 3.9 % High 0.00-2.50 [facility] Comment on above: Performed By: #### C REAT, LYTES, LIPID, BUN, CBC, PP #### [facility] [address] Creatinine and Glomerular fi ltration rate.predicted panel (S/P/Bld)Ordered By: Jordy Berry on 12-12-2022 Creatinine [Mass/Vol] 0.63 mg/dL 0.44-1.03 [facility] Dipstick and Microscopicon 0 12-12-2022 Appearance (U) Clear Normal Clear [facility] Comment on above: Order Comment: Name Collection Type:: Clean-Voided Midstream Performed By: #### C REAT, LYTES, LIPID, BUN, CBC, PP #### [facility] [address] Bacteria,Urine None Seen Normal None Seen [facility] Comment on above: Order Comment: Name Collection Type:: Clean-Voided Midstream Performed By: #### C REAT, LYTES, LIPID, BUN, CBC, PP #### [facility] [address] Bilirubin,Urine Negative Normal Negative [facility] Comment on above: Order Comment: Name Collection Type:: Clean-Voided Midstream Performed By: #### C REAT, LYTES, LIPID, BUN, CBC, PP #### [address] Color (U) Yellow Normal Yellow [facility] Comment on above: Order Comment: Name Collection Type:: Clean-Voided Midstream Performed By: #### C REAT, LYTES, LIPID, BUN, CBC, PP #### [address] Glucose Ql (U) Normal Normal Normal [facility] Comment on above: Order Comment: Name Collection Type:: Clean-Voided Midstream Performed By: #### C REAT, LYTES, LIPID, BUN, CBC, PP #### [address] Hyaline Casts,Urine None Seen Normal 0-8 [facility] Comment on above: Order Comment: Name Collection Type:: Clean-Voided Midstream Result Comment: PERF ORMED BY: [place] [address] PATHOLOGIST [employer] TIM CHRISTIAN M.D. Performed By: #### C REAT, LYTES, LIPID, BUN, CBC, PP #### [address] Ketones Ql (U) Negative Normal Negative [facility] Comment on above: Order Comment: Name Collection Type:: Clean-Voided Midstream Performed By: #### C REAT, LYTES, LIPID, BUN, CBC, PP #### [address] Leukocyte esterase Test stri p Ql (U) 1+ High Negative [facility] Comment on above: Order Comment: Name Collection Type:: Clean-Voided Midstream Performed By: #### C REAT, LYTES, LIPID, BUN, CBC, PP #### [address] Nitrite,Urine Negative Normal Negative [facility] Comment on above: Order Comment: Name Collection Type:: Clean-Voided Midstream Performed By: #### C REAT, LYTES, LIPID, BUN, CBC, PP #### [address] Occult Blood,Urine Negative Normal Negative [facility] Comment on above: Order Comment: Name Collection Type:: Clean-Voided Midstream Result Comment: PERF ORMED BY: [place] [address] PATHOLOGIST [employer] TIM CHRISTIAN M.D. Performed By: #### C REAT, LYTES, LIPID, BUN, CBC, PP #### [address] pH (U) 6.5 [pH] Normal 5.0-9.0 [facility] Comment on above: Order Comment: Name Collection Type:: Clean-Voided Midstream Performed By: #### C REAT, LYTES, LIPID, BUN, CBC, PP #### [address] Protein,Urine Negative Normal Negative [facility] Comment on above: Order Comment: Name Collection Type:: Clean-Voided Midstream Performed By: #### C REAT, LYTES, LIPID, BUN, CBC, PP #### [address] RBC,Urine None Seen Normal 0-4 [facility] Comment on above: Order Comment: Name Collection Type:: Clean-Voided Midstream Performed By: #### C REAT, LYTES, LIPID, BUN, CBC, PP #### [address] Specificy Hepzibah,Urine 1.005 Normal 1.001-1.030 [facility] Comment on above: Order Comment: Name Collection Type:: Clean-Voided Midstream Performed By: #### C REAT, LYTES, LIPID, BUN, CBC, PP #### [address] Squamous Epithelial Cell,Urine 3-4 High 0-2 [facility] Comment on above: Order Comment: Name Collection Type:: Clean-Voided Midstream Performed By: #### C REAT, LYTES, LIPID, BUN, CBC, PP #### [facility] [address] Urobilinogen,Urine Normal Normal Normal [facility] Comment on above: Order Comment: Name Collection Type:: Clean-Voided Midstream Performed By: #### C REAT, LYTES, LIPID, BUN, CBC, PP #### [facility] [address] WBC,Urine 1-2 Normal 0-4 [facility] Comment on above: Order Comment: Name Collection Type:: Clean-Voided Midstream Performed By: #### C REAT, LYTES, LIPID, BUN, CBC, PP #### [facility] [address] ECG 12 lead ECGon 12-12-2022 ECG 12 lead ECG [facility] Main [place] [address] [place] [address] Electrocardiograph Report Signed Patient: Maritza Vicente MR#: [id number] [birth year] : 1940 Acct:[id number] Age/Sex: 82 / F ADM Date: 12/12/22 Loc: ER Room: Type: [facility] ER Attending Dr: Ordering Provider: Jordy Berry MD Date of Service: 12/12/2211/05/1311 ECG/ECG 12 lead ECG: Chest Pain Copies to: Test Reason : Blood Pressure : 133/063 mmHG Vent. Rate : 062 BPM Atrial Rate : 062 BPM P-R Int : 186 ms QRS Dur : 082 ms QT Int : 372 ms P-R-T Axes : 073 075 087 degrees QTc Int : 377 ms Normal sinus rhythm Incomplete right bundle branch block Normal ECG Unchanged compared to prior tracing of 14 Nov 2022 Confirmed by PANFILO MARIA MD ([id number]) on 12/13/2022 9:13:39 PM Referred By: Electronically Signed By:PANFILO MARIA MD Transcribed By: MUS Signed By Panfilo Maria MD [id number] Normal [facility] Eosinophils Auto (Bld) [#/Vo l]Ordered By: Jordy Berry on 12-12-2022 Eosinophils (Bld) [#/Vol] 0.2 10*3/uL 0.0-0.45 [facility] Eosinophils/100 WBC Auto (Bl d)Ordered By: Jordy Berry on 12-12-2022 Eosinophils/100 WBC (Bld) 2.6 % . [facility] Erythrocyte distribution wid th Auto (RBC) [Ratio]Ordered By: Jordy Berry on 12-12-2022 Erythrocyte distribution wid th (RBC) [Ratio] 13.4 % 11.9-15.3 [facility] Estimated glomerular filtrat ion rate (GFR) non- AmericanOrdered By: Jordy Berry on 12-12-2022 GFR/1.73 sq M.predicted di g non-blacks MDRD (S/P/Bld) [Vol rate/Area] > 60 mL/Min [facility] Glucose [Mass/volume] in Ser um or PlasmaOrdered By: Jordy Berry on 12-12-2022 Glucose [Mass/Vol] 102 mg/dL 70-100 [facility] Comment on above: ADA recommended refe rence rangeRandom Glucose Reference Range is dependent on time and content of last meal. Glucose of more than 200 mg/dL in a nonstressed, ambulatory subject supports the diagnosis of Diabetes Mellitus. Hematocrit Auto (Bld) [Volum e fraction]Ordered By: Jordy Berry on 12-12-2022 Hematocrit (Bld) [Volume fraction] 39.3 % 3 4.0-46.4 [facility] Hemoglobin [Mass/volume] in BloodOrdered By: Jordy Berry on 12-12-2022 Hemoglobin (Bld) [Mass/Vol] 13.2 g/dL 11.8-15. 4 [facility] Ketones Auto test strip (U) [Mass/Vol]Ordered By: Jordy Berry on 12-12-2022 Ketones (U) [Mass/Vol] Negative Negative [facility] - Chemistry and C hemistry - challengeOrdered By: Jordy Berry on 12-12-2022 Natriuretic peptide B (Bld) [Mass/Vol] 78.0 pg/mL 5-100 [facility] - CoagulationOrde red By: Jordy Berry on 12-12-2022 PT Coag (PPP) [Time] 12.7 s 9.0-12.9 [facility] - UrinalysisOrder ed By: Jordy Berry on 12-12-2022 Hyaline casts LM Ql (Urine sed) None seen [LPF] 0-8 [facility] Leukocytes [#/volume] correc ryanne for nucleated erythrocytes in Blood by Automated counOrdered By: Jordy Berry on 12-12-2022 WBC corrected for nucl RBC A uto (Bld) [#/Vol] 6.7 10*3/uL 3.8-11.6 [facility] Lymphocytes Auto (Bld) [#/Vo l]Ordered By: Jordy Brery on 12-12-2022 Lymphocytes (Bld) [#/Vol] 1.4 10*3/uL 1.00-4.8 [facility] Lymphocytes/100 WBC Auto (Bl d)Ordered By: Jordy Berry on 12-12-2022 Lymphocytes/100 WBC (Bld) 21.5 % . [facility] MCH Auto (RBC) [Entitic mass ]Ordered By: Jordy Berry on 12-12-2022 MCH (RBC) [Entitic mass] 28.5 pg 24.7-34.3 [facility] MCHC Auto (RBC) [Mass/Vol]Or dered By: Jordy Berry on 12-12-2022 MCHC (RBC) [Mass/Vol] 33.6 g/dL 32.0-35.0 [facility] MCV Auto (RBC) [Entitic vol] Ordered By: Jordy Berry on 12-12-2022 MCV (RBC) [Entitic vol] 84.8 fL 80-100 [facility] Monocyte distribution width [Entitic volume] in Blood by AutomatedOrdered By: Jordy Berry on 12-12-2022 Monocyte distribution width Auto (Bld) [Entitic vol] 15.78 % 0.00-20.00 [facility] Monocytes Auto (Bld) [#/Vol] Ordered By: Jordy Berry on 12-12-2022 Monocytes (Bld) [#/Vol] 0.5 10*3/uL 0.0-0.8 [facility] Monocytes/100 WBC Auto (Bld) Ordered By: Jordy Berry on 03-01-2023 Monocytes/100 WBC (Bld) 7.8 % . [facility] Neutrophils Auto (Bld) [#/Vo l]Ordered By: Jordy Berry on 12-12-2022 Neutrophils (Bld) [#/Vol] 4.5 10*3/uL 1.8-7.7 [facility] Neutrophils/100 WBC Auto (Bl d)Ordered By: Jordy Berry on 12-12-2022 Neutrophils/100 WBC (Bld) 67.2 % . [facility] Nitrite Test strip Ql (U)Ord ered By: Jordy Berry on 12-12-2022 Nitrite Ql (U) Negative Negative [facility] No Panel InformationOrdered By: Jordy Berry on 12-12-2022 Estimated GFR () > 60 mL/Min [facility] Comment on above: GFR estimated refere nce range: According to KDOQI guidelines, <60 ml/min/1.73m2 is sufficient to diagnose a patient with chronic kidney disease. Pharmacy Creatinine Clearance (Chem 40.92 [facility] Nucleated erythrocytes [Pres ence] in Blood by Automated countOrdered By: Jordy Berry on 12-12-2022 Nucleated RBC Auto Ql (Bld) 0.2 /100{WBC} 0-0.5 [facility] Partial Thromboplastin Timeo n 12-12-2022 aPTT Coag (Bld) [Time] 32.2 s Normal 25.1-36.5 [facility] Comment on above: Result Comment: PERF ORMED BY: [facility] [address] [place] [address] PATHOLOGIST [employer] TIM CHRISTIAN M.D. Performed By: #### C REAT, LYTES, LIPID, BUN, CBC, PP #### [facility] [address] Platelet mean volume Auto (B ld) [Entitic vol]Ordered By: Jordy Berry on 12-12-2022 Platelet mean volume (Bld) [Entitic vol] 7.4 fL 6.3-10.7 [facility] Platelet poor plasma interna tional normalized ratio (INR) by coagulation assay (relatOrdered By: Jordy Berry on 12-12-2022 INR Coag (PPP) [Relative time] 1.1 {INR} [facility] Comment on above: INR Therapeutic Rang e A) Pre- and Peroperative OAT started two weeks before surgery. NOT HIP SURGERY: 1.5 - 2.5 HIP SURGERY: 2 - 3B) Primary and secondary prevention of venous THROMBOSIS: 2 - 3C) Active venous thrombosis, pulmonary embolismand prevention of recurrent venous thrombosis: 2 - 3D) Prevention of arterial thromboembolismincluding patients with mechanical heart valves: 3 - 4.5 Platelets Auto (Bld) [#/Vol] Ordered By: Jordy Berry on 12-12-2022 Platelets (Bld) [#/Vol] 204 10*3/uL 150-450 [facility] Potassium [Moles/volume] in Serum or PlasmaOrdered By: Jordy Berry on 12-12-2022 Potassium [Moles/Vol] 4.2 mmol/L 3.5-5.1 [facility] Protein Auto test strip (U) [Mass/Vol]Ordered By: Jordy Berry on 12-12-2022 Protein (U) [Mass/Vol] Negative Negative [facility] Prothrombin Time INRon 12-12 INR Coag (PPP) [Relative time] 1.1 {INR} Normal [facility] Comment on above: Result Comment: INR Therapeutic Range A) Pre- and Peroperative OAT started two weeks before surgery. NOT HIP SURGERY: 1.5 - 2.5 HIP SURGERY: 2 - 3 B) Primary and secondary prevention of venous THROMBOSIS: 2 - 3 C) Active venous thrombosis, pulmonary embolism and prevention of recurrent venous thrombosis: 2 - 3 D) Prevention of arterial thromboembolism including patients with mechanical heart valves: 3 - 4.5 Performed By: #### C REAT, LYTES, LIPID, BUN, CBC, PP #### [facility] [address] [place] [address] [place] PT Coag (PPP) [Time] 12.7 s Normal 9.0-12.9 [facility] Comment on above: Performed By: #### C REAT, LYTES, LIPID, BUN, CBC, PP #### [facility] [address] RBC Auto (Bld) [#/Vol]Ordere d By: Jordy Berry on 12-12-2022 RBC (Bld) [#/Vol] 4.63 10*6/uL 3.60-5.00 [facility] Serum or plasma anion gap de terminationOrdered By: Jordy Berry on 12-12-2022 Anion gap [Moles/Vol] 12.2 mmol/L 6.0-15.0 [facility] Serum or plasma creatine kin ase MB (CKMB)/total creatine kinase (CK) ratio by calculaOrdered By: Jordy Berry on 12-12-2022 CK.MB Calc [Catalytic fraction] 3.9 % 0.00 -2.50 [facility] Sodium [Moles/volume] in Ser um or PlasmaOrdered By: Jordy Berry on 12-12-2022 Sodium [Moles/Vol] 127 mmol/L 136-146 [facility] Specific gravity Auto test s trip (U) [Rel density]Ordered By: Jordy Berry on 12-12-2022 Specific gravity (U) [Rel density] 1.005 1.001-1.030 [facility] Squamous epithelial cells de tection in urine sediment by light microscopyOrdered By: Jordy Berry on 12-12-2022 Epithelial cells.squamous LM Ql (Urine sed) 3-4 [HPF] 0-2 [facility] Troponin I High Sensitivityo n 12-12-2022 Troponin I High Sensitivity < 3 Normal 0-15 [facility] Comment on above: Result Comment: PERF ORMED BY: [place] [address] PATHOLOGIST [employer] TIM CHRISTIAN M.D. Performed By: #### C REAT, LYTES, LIPID, BUN, CBC, PP #### [facility] [address] Troponin I.cardiac [Mass/vol ume] in Serum or Plasma by High sensitivity methodOrdered By: Jordy Berry on 12-12-2022 Troponin I.cardiac High sens itivity method [Mass/Vol] < 3 pg/mL 0-15 [facility] Urea nitrogen [Mass/volume] in Serum or PlasmaOrdered By: Jordy Berry on 12-12-2022 Urea nitrogen [Mass/Vol] 11 mg/dL 9-23 [facility] Urine bacteria detection by automated methodOrdered By: Jordy Berry on 12-12-2022 Bacteria Auto Ql (U) None seen None Seen [facility] Urine clarity by refractomet ry automatedOrdered By: Jordy Berry on 12-12-2022 Clarity Refractometry automated (U) Clear Clear [facility] Urine glucose measurement by automated test strip (mass/volume)Ordered By: Jordy Berry on 12-12-2022 Glucose Auto test strip (U) [Mass/Vol] Normal mg/dL Normal [facility] Urine hemoglobin detection b y automated test stripOrdered By: Jordy Berry on 12-12-2022 Hemoglobin Auto test strip Ql (U) Negative Ne gative [facility] Urine leukocyte esterase det ection by automated test stripOrdered By: Jordy Berry on 12-12-2022 Leukocyte esterase Auto test strip Ql (U) 1+ Negative [facility] Urobilinogen Auto test strip (U) [Mass/Vol]Ordered By: Jordy Berry on 12-12-2022 Urobilinogen (U) [Mass/Vol] Normal mg/dL Normal [facility] WBC Auto (Bld) [#/Vol]Ordere d By: Jordy Berry on 12-12-2022 WBC (Bld) [#/Vol] 6.7 10*3/uL 3.8-11.6 [facility] XR chest 2V*on 12-12-2022 XR chest 2V* [facility] [place] [address] XRay Report Signed Patient: Maritza Vicente MR#: [id number] [birth year] : 1940 Acct:[id number] Age/Sex: 82 / F ADM Date: 12/12/22 Loc: ER Room: Type: PRE ER Attending Dr: Copies to: KHAI TRAMMELL Ordering Provider: KHAI TRAMMELL Date of Service: 12/12/22 XR/XR chest 2V*: Chest Pain Chest 2 views CLINICAL HISTORY: Chest pain on and off for one week. COMPARISON: Chest 11/14/2022 FINDINGS: Heart normal in size. Lungs are clear. No free air. XR/XR chest 2V* IMPRESSION: NO ACUTE CARDIOPULMONARY ABNORMALITY. Impression dictated by: Sergio Rivera Jr., Carla12/12/2022 2:08 PM Dictation Location: [place] [address] Transcribed By: [facility] 12/12/221407 Dictated By: Sergio Rivera Jr, DO 12/12/221406 Signed By: 12/12/221407 Normal [facility] pH Auto test strip (U)Ordere d By: Jordy Berry on 12-12-2022 pH (U) 6.5 [pH] 5.0-9.0 [facility] Activated partial thrombopla stin time (aPTT) in platelet poor plasma by coagulation aOrdered By: Zina Shrestha on 11-14-2022 aPTT Coag (PPP) [Time] 30.2 s 25.1-36.5 [facility] B-Type Natriuretic Peptideon 11-14-2022 Natriuretic peptide B (Bld) [Mass/Vol] 79.0 pg/mL Normal 5-100 [facility] Comment on above: Result Comment: PERF ORMED BY: [place] [address] PATHOLOGIST [employer] TIM CHRISTIAN M.D. Performed By: #### C REAT, LYTES, LIPID, BUN, CBC, PP #### [facility] [address] [place] [address] Basic Metabolic Panelon Anion gap [Moles/Vol] 14.5 mmol/L Normal 6.0-15.0 [facility] Comment on above: Performed By: #### C REAT, LYTES, LIPID, BUN, CBC, PP #### [facility] [address] [place] [address] [place] Calcium [Mass/Vol] 9.9 mg/dL Normal 8.2-10.2 [facility] Comment on above: Performed By: #### C REAT, LYTES, LIPID, BUN, CBC, PP #### [facility] [address] [place] [address] [place] Chloride [Moles/Vol] 90 mmol/L Low 95-114 [facility] Comment on above: Performed By: #### C REAT, LYTES, LIPID, BUN, CBC, PP #### [address] CO2 [Moles/Vol] 26.6 mmol/L Normal 22.0-30.0 [facility] Comment on above: Performed By: #### C REAT, LYTES, LIPID, BUN, CBC, PP #### [facility] [address] Creatinine [Mass/Vol] 0.54 mg/dL Normal 0.44-1.03 [facility] Comment on above: Performed By: #### C REAT, LYTES, LIPID, BUN, CBC, PP #### [address] Creatinine Clr Calc Pharmacy 42.27 [facility] Comment on above: Result Comment: PERF ORMED BY: [place] [address] PATHOLOGIST [employer] TIM CHRISTIAN M.D. Performed By: #### C REAT, LYTES, LIPID, BUN, CBC, PP #### [address] Estimated GFR ( Sharmila > 60 [facility] Comment on above: Result Comment: GFR estimated reference range: According to KDOQI guidelines, <60 ml/min/1.73m2 is sufficient to diagnose a patient with chronic kidney disease. Performed By: #### C REAT, LYTES, LIPID, BUN, CBC, PP #### [address] Estimated GFR (Non- Am > 60 [facility] Comment on above: Performed By: #### C REAT, LYTES, LIPID, BUN, CBC, PP #### [address] Glucose [Mass/Vol] 101 mg/dL High 70-100 [facility] Comment on above: Result Comment: [place] Glucose Reference Range is dependent on time and content of last meal. Glucose of more than 200 mg/dL in a nonstressed, ambulatory subject supports the diagnosis of Diabetes Mellitus. ADA recommended reference range Performed By: #### C REAT, LYTES, LIPID, BUN, CBC, PP #### [facility] [address] Potassium [Moles/Vol] 4.1 mmol/L Normal 3.5-5.1 [facility] Comment on above: Performed By: #### C REAT, LYTES, LIPID, BUN, CBC, PP #### [facility] [address] Sodium [Moles/Vol] 127 mmol/L Low 136-146 [facility] Comment on above: Performed By: #### C REAT, LYTES, LIPID, BUN, CBC, PP #### [facility] [address] Urea nitrogen [Mass/Vol] 9 mg/dL Normal 9-23 [facility] Comment on above: Performed By: #### C REAT, LYTES, LIPID, BUN, CBC, PP #### [facility] [address] Basophils Auto (Bld) [#/Vol] Ordered By: Zina Shrestha on 11-14-2022 Basophils (Bld) [#/Vol] 0.1 10*3/uL 0.0-0.2 [facility] Basophils/100 WBC Auto (Bld) Ordered By: Zina Shrestha on 11-14-2022 Basophils/100 WBC (Bld) 1.1 % . [facility] Calcium [Mass/volume] in Ser um or PlasmaOrdered By: Zina Shrestha on 11-14-2022 Calcium [Mass/Vol] 9.9 mg/dL 8.2-10.2 [facility] Carbon dioxide, total [Moles /volume] in Serum or PlasmaOrdered By: Zina Shrestha on 11-14-2022 CO2 [Moles/Vol] 26.6 mmol/L 22.0-30.0 [facility] Chloride [Moles/volume] in S maylin or PlasmaOrdered By: Zina Shrestha on 11-14-2022 Chloride [Moles/Vol] 90 mmol/L 95-114 [facility] Complete Blood Count Auto Di ffon 11-14-2022 Basophils (Bld) [#/Vol] 0.1 10*3/uL Normal 0.0-0.2 [facility] Comment on above: Result Comment: PERF ORMED BY: [place] [address] PATHOLOGIST [employer] TIM CHRISTIAN M.D. Performed By: #### C REAT, LYTES, LIPID, BUN, CBC, PP #### [address] Basophils/100 WBC (Bld) 1.1 % Normal . [facility] Comment on above: Performed By: #### C REAT, LYTES, LIPID, BUN, CBC, PP #### [address] Eosinophils (Bld) [#/Vol] 0.2 10*3/uL Normal 0.0-0.45 [facility] Comment on above: Performed By: #### C REAT, LYTES, LIPID, BUN, CBC, PP #### [address] Eosinophils/100 WBC (Bld) 3.0 % Normal . [facility] Comment on above: Performed By: #### C REAT, LYTES, LIPID, BUN, CBC, PP #### [address] Erythrocyte distribution wid th (RBC) [Ratio] 13.1 % Normal 11.9-15.3 [facility] Comment on above: Performed By: #### C REAT, LYTES, LIPID, BUN, CBC, PP #### [address] Hematocrit (Bld) [Volume fraction] 36.3 % Normal 34.0-46.4 [facility] Comment on above: Performed By: #### C REAT, LYTES, LIPID, BUN, CBC, PP #### [address] Hemoglobin (Bld) [Mass/Vol] 12.4 g/dL Normal 11.8-15. 4 [facility] Comment on above: Performed By: #### C REAT, LYTES, LIPID, BUN, CBC, PP #### [address] Lymphocytes (Bld) [#/Vol] 1.6 10*3/uL Normal 1.00-4.8 [facility] Comment on above: Performed By: #### C REAT, LYTES, LIPID, BUN, CBC, PP #### [address] Lymphocytes/100 WBC (Bld) 23.2 % Normal . [facility] Comment on above: Performed By: #### C REAT, LYTES, LIPID, BUN, CBC, PP #### [address] MCH (RBC) [Entitic mass] 28.7 pg Normal 24.7-34.3 [facility] Comment on above: Performed By: #### C REAT, LYTES, LIPID, BUN, CBC, PP #### [address] MCV (RBC) [Entitic vol] 84.2 fL Normal 80-100 [facility] Comment on above: Performed By: #### C REAT, LYTES, LIPID, BUN, CBC, PP #### [address] Mean Corpuscular HGB Conc 34.1 g/dL Normal 32.0-35.0 [facility] Comment on above: Performed By: #### C REAT, LYTES, LIPID, BUN, CBC, PP #### [address] Monocytes (Bld) [#/Vol] 0.5 10*3/uL Normal 0.0-0.8 [facility] Comment on above: Performed By: #### C REAT, LYTES, LIPID, BUN, CBC, PP #### [facility] [address] Monocytes/100 WBC (Bld) 14.97 % Normal 0.00-20.00 [facility] Comment on above: Performed By: #### C REAT, LYTES, LIPID, BUN, CBC, PP #### [facility] [address] Monocytes/100 WBC (Bld) 7.9 % Normal . [facility] Comment on above: Performed By: #### C REAT, LYTES, LIPID, BUN, CBC, PP #### [facility] [address] Neutrophils (Bld) [#/Vol] 4.4 10*3/uL Normal 1.8-7.7 [facility] Comment on above: Performed By: #### C REAT, LYTES, LIPID, BUN, CBC, PP #### [address] Neutrophils/100 WBC (Bld) 64.8 % Normal . [facility] Comment on above: Performed By: #### C REAT, LYTES, LIPID, BUN, CBC, PP #### [address] NRBC% 0.1 /100{WBC} Normal 0-0.5 [facility] Comment on above: Performed By: #### C REAT, LYTES, LIPID, BUN, CBC, PP #### [facility] [address] Platelet mean volume (Bld) [Entitic vol] 7.3 fL Normal 6.3-10.7 [facility] Comment on above: Performed By: #### C REAT, LYTES, LIPID, BUN, CBC, PP #### [address] Platelets (Bld) [#/Vol] 205 10*3/uL Normal 150-450 [facility] Comment on above: Performed By: #### C REAT, LYTES, LIPID, BUN, CBC, PP #### [facility] [address] RBC (Bld) [#/Vol] 4.30 10*6/uL Normal 3.60-5.00 [facility] Comment on above: Performed By: #### C REAT, LYTES, LIPID, BUN, CBC, PP #### [facility] [address] WBC (Bld) [#/Vol] 6.7 10*3/uL Normal 3.8-11.6 [facility] Comment on above: Performed By: #### C REANTHONY, LYTES, LIPID, BUN, CBC, PP #### [address] Creatine Kinaseon 11-14-2022 CK [Catalytic activity/Vol] 46 U/L Normal 22-269 [facility] Comment on above: Result Comment: PERF ORMED BY: [place] [address] PATHOLOGIST [employer] TIM CHRISTIAN M.D. Performed By: #### C REANTHONY, LYTES, LIPID, BUN, CBC, PP #### [address] Creatine kinase [Enzymatic a ctivity/volume] in Serum or PlasmaOrdered By: Zina Shrestha on 11-14-2022 CK [Catalytic activity/Vol] 46 U/L 22-269 [facility] Creatine kinase.MB [Mass/vol ume] in Serum or PlasmaOrdered By: Zina Shrestha on 11-14-2022 CK.MB [Mass/Vol] 1.7 ng/mL 0.6-6.3 [facility] Creatinine Kinase MBon 11-14 CK.MB [Mass/Vol] 1.7 ng/mL Normal 0.6-6.3 [facility] Comment on above: Performed By: #### C REAT, LYTES, LIPID, BUN, CBC, PP #### [address] CKMB Relative Index Normal 0.00-2.50 [facility] Comment on above: Result Comment: If t he CK is not ordered, the MBI cannot be calculated. Performed By: #### C REAT, LYTES, LIPID, BUN, CBC, PP #### [facility] [address] [place] [address] [place] Creatinine and Glomerular fi ltration rate.predicted panel (S/P/Bld)Ordered By: Zina Shrestha on 11-14-2022 Creatinine [Mass/Vol] 0.54 mg/dL 0.44-1.03 [facility] Dipstick and Microscopicon 0 11-14-2022 Appearance (U) Clear Normal Clear [facility] Comment on above: Order Comment: Name Collection Type:: Clean-Voided Midstream Performed By: #### C REAT, LYTES, LIPID, BUN, CBC, PP #### [address] Bacteria,Urine None Seen Normal None Seen [facility] Comment on above: Order Comment: Name Collection Type:: Clean-Voided Midstream Performed By: #### C REAT, LYTES, LIPID, BUN, CBC, PP #### [facility] [address] [place] [address] [place] Bilirubin,Urine Negative Normal Negative [facility] Comment on above: Order Comment: Name Collection Type:: Clean-Voided Midstream Performed By: #### C REAT, LYTES, LIPID, BUN, CBC, PP #### [facility] [address] [place] [address] [place] Color (U) Yellow Normal Yellow [facility] Comment on above: Order Comment: Name Collection Type:: Clean-Voided Midstream Performed By: #### C REAT, LYTES, LIPID, BUN, CBC, PP #### [facility] [address] [place] [address] [place] Glucose Ql (U) Normal Normal Normal [facility] Comment on above: Order Comment: Name Collection Type:: Clean-Voided Midstream Performed By: #### C REAT, LYTES, LIPID, BUN, CBC, PP #### [facility] [address] Hyaline Casts,Urine 0-8 Normal 0-8 [facility] Comment on above: Order Comment: Name Collection Type:: Clean-Voided Midstream Result Comment: PERF ORMED BY: [place] [address] PATHOLOGIST [employer] TIM CHRISTIAN M.D. Performed By: #### C REAT, LYTES, LIPID, BUN, CBC, PP #### [address] Ketones Ql (U) Negative Normal Negative [facility] Comment on above: Order Comment: Name Collection Type:: Clean-Voided Midstream Performed By: #### C REAT, LYTES, LIPID, BUN, CBC, PP #### [address] Leukocyte esterase Test stri p Ql (U) 1+ High Negative [facility] Comment on above: Order Comment: Name Collection Type:: Clean-Voided Midstream Performed By: #### C REAT, LYTES, LIPID, BUN, CBC, PP #### [place] [address] [place] Nitrite,Urine Negative Normal Negative [facility] Comment on above: Order Comment: Name Collection Type:: Clean-Voided Midstream Performed By: #### C REAT, LYTES, LIPID, BUN, CBC, PP #### [address] Occult Blood,Urine Negative Normal Negative [facility] Comment on above: Order Comment: Name Collection Type:: Clean-Voided Midstream Result Comment: PERF ORMED BY: [place] [address] PATHOLOGIST [employer] TIM CHRISTIAN M.D. Performed By: #### C REAT, LYTES, LIPID, BUN, CBC, PP #### [place] [address] [place] pH (U) 8.0 [pH] Normal 5.0-9.0 [facility] Comment on above: Order Comment: Name Collection Type:: Clean-Voided Midstream Performed By: #### C REAT, LYTES, LIPID, BUN, CBC, PP #### [address] Protein,Urine Negative Normal Negative [facility] Comment on above: Order Comment: Name Collection Type:: Clean-Voided Midstream Performed By: #### C REAT, LYTES, LIPID, BUN, CBC, PP #### [address] RBC,Urine None Seen Normal 0-4 [facility] Comment on above: Order Comment: Name Collection Type:: Clean-Voided Midstream Performed By: #### C REAT, LYTES, LIPID, BUN, CBC, PP #### [address] Specificy Hepzibah,Urine 1.002 Normal 1.001-1.030 [facility] Comment on above: Order Comment: Name Collection Type:: Clean-Voided Midstream Performed By: #### C REAT, LYTES, LIPID, BUN, CBC, PP #### [address] Squamous Epithelial Cell,Urine 1-2 Normal 0-2 [facility] Comment on above: Order Comment: Name Collection Type:: Clean-Voided Midstream Performed By: #### C REAT, LYTES, LIPID, BUN, CBC, PP #### [address] Urobilinogen,Urine Normal Normal Normal [facility] Comment on above: Order Comment: Name Collection Type:: Clean-Voided Midstream Performed By: #### C REAT, LYTES, LIPID, BUN, CBC, PP #### [address] WBC,Urine 1-2 Normal 0-4 [facility] Comment on above: Order Comment: Name Collection Type:: Clean-Voided Midstream Performed By: #### C REAT, LYTES, LIPID, BUN, CBC, PP #### [facility] [address] [place] [address] [place] ECG 12 lead ECGon 11-14-2022 ECG 12 lead ECG [facility] [address] [place] [address] Electrocardiograph Report Signed Patient: Maritza Vicente MR#: [id number] [birth year] : 1940 Acct:[id number] Age/Sex: 82 / F ADM Date: 11/13/22 Loc: ER Room: Type: [facility] ER Attending Dr: Ordering Provider: Zina Shrestha DO Date of Service: 11/14/2211/05/27 ECG/ECG 12 lead ECG: Headache Copies to: Test Reason : Blood Pressure : / mmHG Vent. Rate : 056 BPM Atrial Rate : 056 BPM P-R Int : 174 ms QRS Dur : 086 ms QT Int : 416 ms P-R-T Axes : 063 070 062 degrees QTc Int : 401 ms Sinus bradycardia Otherwise normal ECG When compared with ECG of 20-SEP-2022 21:44, No significant change was found Confirmed by ZINA SHRESTHA DO ([id number]) on 11/14/2022 3:07:28 AM Referred By: Electronically Signed By:ZINA SHRESTHA DO Transcribed By: MUS Signed By Zina Shrestha DO 0307 Normal [facility] Eosinophils Auto (Bld) [#/Vo l]Ordered By: Zina Shrestha on 11-14-2022 Eosinophils (Bld) [#/Vol] 0.2 10*3/uL 0.0-0.45 [facility] Eosinophils/100 WBC Auto (Bl d)Ordered By: Zina Shrestha on 11-14-2022 Eosinophils/100 WBC (Bld) 3.0 % . [facility] Erythrocyte distribution wid th Auto (RBC) [Ratio]Ordered By: Zina Shrestha on 11-14-2022 Erythrocyte distribution wid th (RBC) [Ratio] 13.1 % 11.9-15.3 [facility] Estimated glomerular filtrat ion rate (GFR) non- AmericanOrdered By: Zina Shrestha on 11-14-2022 GFR/1.73 sq M.predicted di g non-blacks MDRD (S/P/Bld) [Vol rate/Area] > 60 mL/Min [facility] Glucose Poct Glucometerson 0 11-14-2022 Glucose [Mass/Vol] 113 mg/dL Normal [facility] Comment on above: Result Comment: [place] Glucose Reference Range is dependent on time and content of last meal. Glucose of more than 200 mg/dL in a nonstressed, ambulatory subject supports the diagnosis of Diabetes Mellitus. PERFORMED BY: [facility] [address] [place] [address] PATHOLOGIST [employer] TIM CHRISTIAN M.D. Performed By: #### G DULCE #### Point of Care testing , Glucose [Mass/volume] in Ser um or PlasmaOrdered By: Zina Shrestha on 11-14-2022 Glucose [Mass/Vol] 101 mg/dL 70-100 [facility] Comment on above: ADA recommended refe rence rangeRandom Glucose Reference Range is dependent on time and content of last meal. Glucose of more than 200 mg/dL in a nonstressed, ambulatory subject supports the diagnosis of Diabetes Mellitus. Hematocrit Auto (Bld) [Volum e fraction]Ordered By: Zina Shrestha on 11-14-2022 Hematocrit (Bld) [Volume fraction] 36.3 % 3 4.0-46.4 [facility] Hemoglobin [Mass/volume] in BloodOrdered By: Zina Shrestha on 11-14-2022 Hemoglobin (Bld) [Mass/Vol] 12.4 g/dL 11.8-15. 4 [facility] Laboratory - Chemistry and C hemistry - challengeOrdered By: Zina Shrestha on 11-14-2022 Natriuretic peptide B (Bld) [Mass/Vol] 79.0 pg/mL 5-100 [facility] Laboratory - CoagulationOrde red By: Zina Shrestha on 11-14-2022 PT Coag (PPP) [Time] 12.9 s 9.0-12.9 [facility] Leukocytes [#/volume] correc ryanne for nucleated erythrocytes in Blood by Automated counOrdered By: Zina Shrestha on 11-14-2022 WBC corrected for nucl RBC A uto (Bld) [#/Vol] 6.7 10*3/uL 3.8-11.6 [facility] Lymphocytes Auto (Bld) [#/Vo l]Ordered By: Zina Shrestha on 11-14-2022 Lymphocytes (Bld) [#/Vol] 1.6 10*3/uL 1.00-4.8 [facility] Lymphocytes/100 WBC Auto (Bl d)Ordered By: Zina Shrestha on 11-14-2022 Lymphocytes/100 WBC (Bld) 23.2 % . [facility] MCH Auto (RBC) [Entitic mass ]Ordered By: Zina Shrestha on 11-14-2022 MCH (RBC) [Entitic mass] 28.7 pg 24.7-34.3 [facility] MCHC Auto (RBC) [Mass/Vol]Or dered By: Zina Shrestha on 11-14-2022 MCHC (RBC) [Mass/Vol] 34.1 g/dL 32.0-35.0 [facility] MCV Auto (RBC) [Entitic vol] Ordered By: Zina Shrestha on 11-14-2022 MCV (RBC) [Entitic vol] 84.2 fL 80-100 [facility] Monocyte distribution width [Entitic volume] in Blood by AutomatedOrdered By: Zina Shrestha on 11-14-2022 Monocyte distribution width Auto (Bld) [Entitic vol] 14.97 % 0.00-20.00 [facility] Monocytes Auto (Bld) [#/Vol] Ordered By: Zina Shrestha on 11-14-2022 Monocytes (Bld) [#/Vol] 0.5 10*3/uL 0.0-0.8 [facility] Monocytes/100 WBC Auto (Bld) Ordered By: Zina Shrestha on 11-14-2022 Monocytes/100 WBC (Bld) 7.9 % . [facility] Neutrophils Auto (Bld) [#/Vo l]Ordered By: Zina Shrestha on 11-14-2022 Neutrophils (Bld) [#/Vol] 4.4 10*3/uL 1.8-7.7 [facility] Neutrophils/100 WBC Auto (Bl d)Ordered By: Zina Shrestha on 11-14-2022 Neutrophils/100 WBC (Bld) 64.8 % . [facility] No Panel InformationOrdered By: Zina Shrestha on 11-14-2022 Estimated GFR () > 60 mL/Min [facility] Comment on above: GFR estimated refere nce range: According to KDOQI guidelines, <60 ml/min/1.73m2 is sufficient to diagnose a patient with chronic kidney disease. Pharmacy Creatinine Clearance (Chem 42.27 [facility] Nucleated erythrocytes [Pres ence] in Blood by Automated countOrdered By: Zina Shrestha on 11-14-2022 Nucleated RBC Auto Ql (Bld) 0.1 /100{WBC} 0-0.5 [facility] Partial Thromboplastin Timeo n 11-14-2022 aPTT Coag (Bld) [Time] 30.2 s Normal 25.1-36.5 [facility] Comment on above: Result Comment: PERF ORMED BY: [place] [address] PATHOLOGIST [employer] TIM CHRISTIAN M.D. Performed By: #### C REAT, LYTES, LIPID, BUN, CBC, PP #### [address] Platelet mean volume Auto (B ld) [Entitic vol]Ordered By: Zina Shrestha on 11-14-2022 Platelet mean volume (Bld) [Entitic vol] 7.3 fL 6.3-10.7 [facility] Platelet poor plasma interna tional normalized ratio (INR) by coagulation assay (relatOrdered By: Zina Shrestha on 11-14-2022 INR Coag (PPP) [Relative time] 1.1 {INR} [facility] Comment on above: INR Therapeutic Rang e A) Pre- and Peroperative OAT started two weeks before surgery. NOT HIP SURGERY: 1.5 - 2.5 HIP SURGERY: 2 - 3B) Primary and secondary prevention of venous THROMBOSIS: 2 - 3C) Active venous thrombosis, pulmonary embolismand prevention of recurrent venous thrombosis: 2 - 3D) Prevention of arterial thromboembolismincluding patients with mechanical heart valves: 3 - 4.5 Platelets Auto (Bld) [#/Vol] Ordered By: Zina Shrestha on 11-14-2022 Platelets (Bld) [#/Vol] 205 10*3/uL 150-450 [facility] Potassium [Moles/volume] in Serum or PlasmaOrdered By: Zina Shrestha on 11-14-2022 Potassium [Moles/Vol] 4.1 mmol/L 3.5-5.1 [facility] Prothrombin Time INRon 11-14 INR Coag (PPP) [Relative time] 1.1 {INR} Normal [facility] Comment on above: Result Comment: INR Therapeutic Range A) Pre- and Peroperative OAT started two weeks before surgery. NOT HIP SURGERY: 1.5 - 2.5 HIP SURGERY: 2 - 3 B) Primary and secondary prevention of venous THROMBOSIS: 2 - 3 C) Active venous thrombosis, pulmonary embolism and prevention of recurrent venous thrombosis: 2 - 3 D) Prevention of arterial thromboembolism including patients with mechanical heart valves: 3 - 4.5 Performed By: #### C REAT, LYTES, LIPID, BUN, CBC, PP #### [facility] [address] PT Coag (PPP) [Time] 12.9 s Normal 9.0-12.9 [facility] Comment on above: Performed By: #### C REAT, LYTES, LIPID, BUN, CBC, PP #### [facility] [address] RBC Auto (Bld) [#/Vol]Ordere d By: Zina Shrestha on 11-14-2022 RBC (Bld) [#/Vol] 4.30 10*6/uL 3.60-5.00 [facility] Serum or plasma anion gap de terminationOrdered By: Zina Shrestha on 11-14-2022 Anion gap [Moles/Vol] 14.5 mmol/L 6.0-15.0 [facility] Serum or plasma creatine kin ase MB (CKMB)/total creatine kinase (CK) ratio by calculaOrdered By: Zina Shrestha on 11-14-2022 CK.MB Calc [Catalytic fraction] See comment 0.0 0-2.50 [facility] Comment on above: If the CK is not ord ered, the MBI cannot be calculated. Sodium [Moles/volume] in Ser um or PlasmaOrdered By: Zina Shrestha on 11-14-2022 Sodium [Moles/Vol] 127 mmol/L 136-146 [facility] Troponin I High Sensitivityo n 11-14-2022 Troponin I High Sensitivity < 3 Normal 0-15 [facility] Comment on above: Result Comment: PERF ORMED BY: [place] [address] PATHOLOGIST [employer] TIM CHRISTIAN M.D. Performed By: #### C REAT, LYTES, LIPID, BUN, CBC, PP #### [address] Troponin I.cardiac [Mass/vol ume] in Serum or Plasma by High sensitivity methodOrdered By: Zina Shrestha on 11-14-2022 Troponin I.cardiac High sens itivity method [Mass/Vol] < 3 pg/mL 0-15 [facility] Urea nitrogen [Mass/volume] in Serum or PlasmaOrdered By: Zina Shrestha on 11-14-2022 Urea nitrogen [Mass/Vol] 9 mg/dL 07-06 [facility] WBC Auto (Bld) [#/Vol]Ordere d By: Zina Shrestha on 11-14-2022 WBC (Bld) [#/Vol] 6.7 10*3/uL 3.8-11.6 [facility] XR chest 2V*on 11-14-2022 XR chest 2V* [facility] [address] [place] [address] XRay Report Signed Patient: Maritza Vicente MR#: [id number] 13 : 1940 Acct:[id number] Age/Sex: 82 / F ADM Date: 11/13/22 Loc: ER Room: Type: [facility] ER Attending Dr: Copies to: Zina Shrestha DO Ordering Provider: Zina Shrestha DO Date of Service: 11/14/22 XR/XR chest 2V*: Headache XR chest 2V* 11/14/2022 12:46 AM SIGNS AND SYMPTOMS: Headache PROTOCOL: Frontal and lateral radiographs of the chest COMPARISON: 06/20/2020 FINDINGS: The trachea is midline. The heart and mediastinal structures are within normal limits. The lung parenchyma is clear. The bony thorax is intact. There is anterior fusion hardware in the lower cervical spine. There is evidence of prior cholecystectomy. Degenerative changes are noted in the thoracic spine. XR/XR chest 2V* IMPRESSION: No acute cardiopulmonary pathology. Chronic findings are noted, as above. Impression dictated by: Nisha Rabago M.D.11/14/2022 9:01 AM Dictation Location: [place] [address] Transcribed By: [facility] 11/14/22900 Dictated By: Nisha Rabago II, MD 11/14/22 0859 Signed By: 11/14/22 0901 [facility] Automated erythrocytes count in urine sediment (number/area)Ordered By: PROVIDER TEMP on 11-13-2022 RBC Auto (Urine sed) [#/Area] None seen [HPF] 0 -4 [facility] Automated leukocytes count i n urine sediment (number/area)Ordered By: PROVIDER TEMP on 11-13-2022 WBC Auto (Urine sed) [#/Area] 1-2 [HPF] 0-4 [facility] Bilirubin Test strip Ql (U)O rdered By: PROVIDER TEMP on 11-13-2022 Bilirubin Ql (U) Negative Negative [facility] Color Auto (U)Ordered By: JOSEPH COPELAND TEMP on 11-13-2022 Color (U) Yellow Yellow [facility] Glucose Glucometer (BldC) [M ass/Vol]Ordered By: Zina Shrestha on 11-13-2022 Glucose [Mass/Vol] 113 mg/dL [facility] Comment on above: Random Glucose Refer ence Range is dependent on time and content of last meal. Glucose of more than 200 mg/dL in a nonstressed, ambulatory subject supports the diagnosis of Diabetes Mellitus. Ketones Auto test strip (U) [Mass/Vol]Ordered By: PROVIDER TEMP on 11-13-2022 Ketones (U) [Mass/Vol] Negative Negative [facility] - UrinalysisOrder ed By: PROVIDER TEMP on 11-13-2022 Hyaline casts LM Ql (Urine sed) 0-8 [LPF] 0-8 [facility] Nitrite Test strip Ql (U)Ord ered By: PROVIDER TEMP on 11-13-2022 Nitrite Ql (U) Negative Negative [facility] Protein Auto test strip (U) [Mass/Vol]Ordered By: PROVIDER TEMP on 11-13-2022 Protein (U) [Mass/Vol] Negative Negative [facility] Specific gravity Auto test s trip (U) [Rel density]Ordered By: PROVIDER TEMP on 11-13-2022 Specific gravity (U) [Rel density] 1.002 1.001-1.030 [facility] Squamous epithelial cells de tection in urine sediment by light microscopyOrdered By: PROVIDER TEMP on 11-13-2022 Epithelial cells.squamous LM Ql (Urine sed) 1-2 [HPF] 0-2 [facility] Urine bacteria detection by automated methodOrdered By: PROVIDER TEMP on 11-13-2022 Bacteria Auto Ql (U) None seen None Seen [facility] Urine clarity by refractomet ry automatedOrdered By: PROVIDER TEMP on 11-13-2022 Clarity Refractometry automated (U) Clear Clear [facility] Urine glucose measurement by automated test strip (mass/volume)Ordered By: PROVIDER TEMP on 11-13-2022 Glucose Auto test strip (U) [Mass/Vol] Normal mg/dL Normal [facility] Urine hemoglobin detection b y automated test stripOrdered By: PROVIDER TEMP on 11-13-2022 Hemoglobin Auto test strip Ql (U) Negative Ne gative [facility] Urine leukocyte esterase det ection by automated test stripOrdered By: PROVIDER TEMP on 11-13-2022 Leukocyte esterase Auto test strip Ql (U) 1+ Negative [facility] Urobilinogen Auto test strip (U) [Mass/Vol]Ordered By: PROVIDER TEMP on 11-13-2022 Urobilinogen (U) [Mass/Vol] Normal mg/dL Normal [facility] pH Auto test strip (U)Ordere d By: PROVIDER TEMP on 11-13-2022 pH (U) 8.0 [pH] 5.0-9.0 [facility] STOOL CULTUREon 11-09-2022 Campylobacter Culture Final report Normal T [facility] Comment on above: Performed By: #### H STROPN, BNP, LIPA, CMP, TSH #### [facility] [address] [address] [address] Alyson Rowley E coli Shiga Toxin EIA Negative Normal Negative e [facility] Comment on above: Performed By: #### H STROPN, BNP, LIPA, CMP, TSH #### [facility] [address] [address] [address] Alyson Rowley Result 1 Comment Normal [facility]ital Comment on above: Result Comment: No S almonella or Shigella recovered. Performed By: #### H STROPN, BNP, LIPA, CMP, TSH #### [facility] [address] [address] [address] Alyson Rowley Result Comment: No C ampylobacter species isolated. Salmonella/Shigella Screen Final report Normal [facility] Comment on above: Performed By: #### H STROPN, BNP, LIPA, CMP, TSH #### [facility] [address] [address] [address] Alyson Rowley OVA AND PARASITE EXAMINATION on 11-08-2022 Ova + Parasite Exam Final report Normal [facility] Comment on above: Result Comment: Thes e results were obtained using wet preparation(s) and trichrome stained smear. This test does not include testing for Cryptosporidium parvum, Cyclospora, or Microsporidia. Performed By: #### H STROPN, BNP, LIPA, CMP, TSH #### [facility] [address] [place] [address] Dr. Alyson Rowley Result 1 Comment Normal [facility] Comment on above: Result Comment: No o va, cysts, or parasites seen. . One negative specimen does not rule out the possibility of a parasitic infection. Performed By: #### H STROPN, BNP, LIPA, CMP, TSH #### [facility] [address] [place], [place] [address] Dr. Alyson Rowley C. DIFF PCRon 11-03-2022 C. DIFFICILE PCR Negative Normal NEGATIVE [facility] Comment on above: Performed By: #### H STROPN, BNP, LIPA, CMP, TSH #### [facility] [address] [place], [place] [address] Dr. Alyson Rowley OCC BLD IMMUNO SCREENon 10-15 OCCULT BLOOD Negative Normal NEGATIVE [facility] Comment on above: Performed By: #### H STROPN, BNP, LIPA, CMP, TSH #### [facility] [address] [place], [place] [address] Dr. Alyson Rowley Consent for Procedure/Surger yon 10-31-2022 Consent for Procedure/Surgery [id number] Normal [facility] Ambulatory Visit Summaryon 0 10-30-2022 Ambulatory Visit Summary MARITZA VICENTE :1940 Visit Date:10/30/2022 Ambulatory Visit Instructions Your Diagnosis Other urethral stricture, female History of recurrent UTI (urinary tract infection) UTI (urinary tract infection) Your Care Team Attending Physician - RYAN LOBO, Zina Garay This Is Your Medications List doxycycline (doxycycline hyclate 100 mg Cap) estradiol topical (estradiol 0.1 mg/g vaginal cream) Contact prescribing physician if questions or concerns aspirin (aspirin 81 mg Oral EC Tab) busPIRone cholecalciferol (Vitamin D3) famotidine ferrous sulfate lisinopril magnesium amino acids chelate metformin (metformin 500 mg ER Tab) multivitamin with minerals (Centrum Silver) sertraline (sertraline 25 mg Tab) simvastatin Procedures Performed Cystourethroscopy with dilation of urethral stricture (10/30/2022), Cystourethroscopy with dilation of urethral stricture (02/16/2020), Cystourethroscopy with dilation of urethral stricture (07/01/2018), Dilation of urethra (07/26/2010), Appendectomy, Cholecystectomy, Colonoscopy, elbow surgery, Hysterectomy, neck surgery. Discharge Vitals Blood Pressure 115/72 Height 160 cm Height 63 in Weight 56 kg Weight 123.2 lb BMI 21.88 What to do next You Need to Schedule the Following Appointments Follow Up with RYAN LOBO, ABIODUN Mitchell When: Where: [facility] [address] [place] [address]- Medications What How Much When Instructions Unchanged doxycycline (doxycycline hyclate 100 mg Cap) 1 Capsules By Mouth Every day Take 1 pill the day before the procedure and 1 pill after the procedure Unchanged estradiol topical (estradiol 0.1 mg/ g vaginal cream) 1 Gram Vaginal Saturday Unchanged aspirin (aspirin 81 mg Oral EC Tab) By Mouth Every day Contact prescribing physician if questions or concerns Unchanged busPIRone By Mouth 2 times a day Contact prescribing physician if questions or concerns Unchanged cholecalciferol (Vitamin D3) Contact prescribing physician if questions or concerns Unchanged famotidine Contact prescribing physician if questions or concerns Unchanged ferrous sulfate By Mouth Contact prescribing physician if questions or concerns Unchanged lisinopril By Mouth Every day Contact prescribing physician if questions or concerns Unchanged magnesium amino acids chelate By Mouth Contact prescribing physician if questions or concerns Unchanged metformin (metformin 500 mg ER Tab) By Mouth Every day Contact prescribing physician if questions or concerns Unchanged multivitamin with minerals (Centrum Silver) By Mouth Every day Contact prescribing physician if questions or concerns Unchanged sertraline (sertraline 25 mg Tab) By Mouth Every day Contact prescribing physician if questions or concerns Unchanged simvastatin By Mouth Contact prescribing physician if questions or concerns Allergies [place] (Weakness) Valium (Unknown Reaction) morphine (Unknown Reaction) Problems Ongoing - Any problem that you are currently receiving treatment for. Chronic cystitis Chronic neck pain Diabetes History of recurrent UTI (urinary tract infection) Hx of migraine headaches Hypertension Other urethral stricture, female Urgency of urination Urine frequency UTI (urinary tract infection) Education Materials Urethral Stricture Urethral stricture is narrowing of the tube (urethra) that carries urine from the bladder out of the body. The urethra can become narrow due to scar tissue from an injury or infection. This can make it difficult to pass urine. In women, the urethra opens above the vaginal opening. In men, the urethra opens at the tip of the penis, and the urethra is much longer than it is in women. Because of the length of the male urethra, urethral stricture is much more common in men. This condition is treated with surgery. What are the causes? In both men and women, common causes of urethral stricture include: ? Urinary tract infection (UTI). ? Sexually transmitted infection (STI). ? Use of a tube placed into the urethra to drain urine from the bladder (urinary catheter). ? Urinary tract surgery. In men, common causes of urethral stricture include: ? A severe injury to the pelvis. ? Prostate surgery. ? Injury to the penis. In many cases, the cause of urethral stricture is not known. What increases the risk? You are more likely to develop this condition if you: ? Are male. Men who have had prostate surgery are at risk of developing this condition. ? Use a urinary catheter. ? Have had urinary tract surgery. What are the signs or symptoms? The main symptom of this condition is difficulty passing urine. This may cause decreased urine flow, dribbling, or spraying of urine. Other symptom of this condition may include: ? Frequent UTIs. ? Blood in the urine. ? Pain when urinating. ? Swelling of (more content not included)... Normal [facility] Patient Educationon 10-30-19 Patient Education Urology Urethral Stricture Urethral stricture is narrowing of the tube (urethra) that carries urine from the bladder out of the body. The urethra can become narrow due to scar tissue from an injury or infection. This can make it difficult to pass urine. In women, the urethra opens above the vaginal opening. In men, the urethra opens at the tip of the penis, and the urethra is much longer than it is in women. Because of the length of the male urethra, urethral stricture is much more common in men. This condition is treated with surgery. What are the causes? In both men and women, common causes of urethral stricture include: ? Urinary tract infection (UTI). ? Sexually transmitted infection (STI). ? Use of a tube placed into the urethra to drain urine from the bladder (urinary catheter). ? Urinary tract surgery. In men, common causes of urethral stricture include: ? A severe injury to the pelvis. ? Prostate surgery. ? Injury to the penis. In many cases, the cause of urethral stricture is not known. What increases the risk? You are more likely to develop this condition if you: ? Are male. Men who have had prostate surgery are at risk of developing this condition. ? Use a urinary catheter. ? Have had urinary tract surgery. What are the signs or symptoms? The main symptom of this condition is difficulty passing urine. This may cause decreased urine flow, dribbling, or spraying of urine. Other symptom of this condition may include: ? Frequent UTIs. ? Blood in the urine. ? Pain when urinating. ? Swelling of the penis in men. ? Inability to pass urine (urinary obstruction). How is this diagnosed? This condition may be diagnosed based on: ? Your medical history and a physical exam. ? Urine tests to check for infection or bleeding. ? X-rays. ? Ultrasound. ? Retrograde urethrogram. This is a type of test in which dye is injected into the urethra and then an X-ray is taken. ? Urethroscopy. This is when a thin tube with a light and camera on the end (urethroscope) is used to look at the urethra. How is this treated? This condition is treated with surgery. The type of surgery that you have depends on the severity of your condition. You may have: ? Urethral dilation. In this procedure, the narrow part of the urethra is stretched open (dilated) with dilating instruments or a small balloon. ? Urethrotomy. In this procedure, a urethroscope is placed into the urethra, and the narrow part of the urethra is cut open with a surgical blade inserted through the urethroscope. ? Open surgery. In this procedure, an incision is made in the urethra, the narrow part is removed, and the urethra is reconstructed. Follow these instructions at home: ? Take [id number] and prescription medicines only as told by your health care provider. ? If you were prescribed an antibiotic medicine, take it as told by your health care provider. Do not stop taking the antibiotic even if you start to feel better. ? Drink enough fluid to keep your urine pale yellow. ? Keep all follow-up visits as told by your health care provider. This is important. Contact a health care provider if: ? You have signs of a urinary tract infection, such as: ? Frequent urination or passing small amounts of urine frequently. ? Needing to urinate urgently. ? Pain or burning with urination. ? Urine that smells bad or unusual. ? Cloudy urine. ? Pain in the lower abdomen or back. ? Trouble urinating. ? Blood in the urine. ? Vomiting or being less hungry than normal. ? Diarrhea or abdominal pain. ? Vaginal discharge, if you are female. ? Your symptoms are getting worse instead of better. Get help right away if: ? You cannot pass urine. ? You have a fever. ? You have swelling, bruising, or discoloration of your genital area. This includes the penis, scrotum, and inner thighs for men, and the outer genital organs (vulva) and inner thighs for women. ? You develop swelling in your legs. ? You have difficulty breathing. Summary ? Urethral stricture is narrowing of the tube (urethra) that carries urine from the bladder out of the body. The urethra can become narrow due to scar tissue from an injury or infection. ? This condition can make it difficult to pass urine. ? This condition is treated with surgery. The type of surgery that you have depends on the severity of your condition. ? Contact a health care provider if your symptoms get worse or you have signs of a urinary tract infection. This information is not intended to replace advice given to you by your health care provider. Make sure you discuss any questions you have with your health care provider. Document Released: 10/26/2016 Document Revised: 05/13/2019 Document Reviewed: 05/13/2019 [employer] Patient Education ? 2019 [employer]. [facility] Urology Office/Clinic Noteon 10-30-2022 Urology Office/Clinic Note Chief Complaint Cysto/UD HPI Staff Cysto/UD ABX TAKEN History of Present Illness Tests reviewed: CT, US, ER records. I have reviewed the previous health record information and history for this patient from Dr. Davis. I have reviewed and verified the staff HPI to be accurate for this encounter. There have been no associated fever, chills, flank pain, or blood in the urine. Denies any urinary infections since last encounter. Review of Systems PHQ Score Initial Depression Screen Score: 0 ROS - Provider Constitutional: denies weight loss, denies hot flashes. Eyes: denies eye problems. Gastrointestinal: denies nausea, denies vomiting. Cardiovascular: denies chest pain or angina. Integumentary: no dryness Musculoskeletal: denies musculoskeletal symptoms. ENMT: denies otolaryngeal symptoms. Respiratory: no shortness of breath. Heme/Lymph: denies easy bleeding tendency, denies easy bruising tendency. Psychiatric: no confusion, no anxiety. Genitourinary: denies vaginal discharge, denies incontinence, denies dysuria, denies hematuria, denies urinary frequency, denies amenorrhea, denies menorrhagia, denies abnormal bleeding, denies pelvic pain, denies genital sores, and denies decreased libido. Physical Exam Vitals & Measurements BP: 115/72 HT: 63 in HT: 160 cm WT: 56 kg WT: 123.2 lb BMI: 21.88 General Appearance: alert , no acute distress, well nourished, well developed female. Genitourinary: bladder nonpalpable, no flank pain. Procedure Operative Information Anesthesia Type: Local Procedure: Local Cystoscopy with Urethral Dilation Complications: None Surgical risks, benefits, details of the procedure have been explained to the patient. Full informed consent has been obtained. Intraoperative Information Prepped: Patient is brought back to the endoscopy suite. Patient is placed in modified dorso/lithotomy position. Patient prepped in the usual fashion with Betadine solution. 2% Xylocaine Jelly is placed per Urethra. After waiting several minutes, the Cystoscope is introduced. The Urethra is: A.V. noted. Tight The Bladder: _No tumors or stones. No HUEY, no prolapse. Tender vaginal vault posteriorly. Trabeculated: Moderate (2) The Ureteral orifices: Show efflux of clear urine The Urethra was dilated to: 20-30_ Tamazight with sounds. Specimens Removed: None Removal: Cystoscope is removed. The patient tolerated it well. Postoperative Information Patient is discharged home with antibiotic coverage. Follow up arranged. Assessment/Plan 1. Other urethral stricture, female (N35.82: Other urethral stricture, female) Pt has been having dilations since she was 36, both IO as well as formal urethrotomy under anesthesia. Most recent UD was Nov 2021 w PRW, helped for 6 mos. Experiencing worsening sxs now: urgency, frequency, straining, hesitancy. Pt would like to repeat UD. Pt had IO cysto/UD today without complications. Follow up 4 mos with OV with EDGARDO Parra. 2. History of recurrent UTI (urinary tract infection) (Z87.440: Personal history of urinary (tract) infections) Pt continues using Estradiol 0.1 mg/g but states it does not work, specifically requested Premarin cream instead. Pt to d/c Estradiol and start Premarin 1 gm vaginally 3x/week. SEs discussed. Rx sent to [facility] mail order pharmacy (pt confirmed). 3. UTI (urinary tract infection) (N39.0: Urinary tract infection, site not specified) Pt presented to [facility] on 09/20/22 for 2-3 days of LLQ abdominal pain and worsening suprapubic abdominal pain. CT AP w con done 09/20/22 shows no acute findings. Pelvic US done 10/29/22 shows no hydro or perinephric fluid. Pt is currently taking Doxycycline for UTI since 10/28/22. Having pain, burning, slow stream. 4. Renal cyst (N28.1: Cyst of kidney, acquired) CT AP wo con done 09/02/22 shows no hydro or stones. Intracortical hemorrhagic/proteinaceous cyst involving the lateral cortex of the left kidney measures 7 mm. Follow-up With When Contact Information JESS ROSARIO, LAWRENCE Gracia, URL [address] [place] [address] Additional Instructions: f/u 4 mos for OV Patient Education Urethral Stricture I, Mackenzie Bennett, personally scribed for Dr. Davis on 10/30/2022 16:29:41. . Documentation recorded by the scribe, Mackenzie Bennett, accurately reflects the services(s) I performed and decisions made by me. Authenticated by Dr. Davis on 10/30/2022 16:43:44. Problem List/Past Medical History Ongoing Chronic cystitis Chronic neck pain Diabetes History of recurrent UTI (urinary tract infection) Hx of migraine headaches Hypertension Other urethral stricture, female Renal cyst Urgency of urination Urine frequency UTI (urinary tract infection) Historical No qualifying data Procedure/Surgical History Cystourethroscopy with dilation of urethral stricture (10/30/2022), Cystourethroscopy with dilation of urethr (more content not included)... Normal [facility] Comment on above: Result Comment: Elec tronically Signed By: Zina DAVIS MD\.br\Date and Time Signed: 10/30/22 16:43 EST\.br\Electronically Co-Signed By: Mackenzie Bennett\.br\Date and Time Co-Signed: 10/30/22 16:30 EST\.br\Electronically Co-Signed By: Mackenzie Bennett P\.br\Date and Time Co-Signed: 10/30/22 16:33 EST US pelvic completeon 023 US pelvic complete [facility] [address] [id number] Ultrasound Report Signed Patient: Maritza Vicente MR#: [id number] 13 : 1940 Acct:[id number] Age/Sex: 82 / F ADM Date: 10/29/22 Loc: Room: Type: [facility] Attending Dr: Alexia CALHOUN Ordering Provider: ALEXIA DEJESUS Date of Service: 10/29/22 US/US pelvic complete: Pelvic pain Copies to: ALEXIA DEJESUS PELVIC ULTRASOUND CLINICAL DATA: Pelvic pain with loose stool for the past few months and urinary tract infection. Previous partial hysterectomy. COMPARISON: CT 09/20/2022 The uterus is surgically absent. The vaginal cuff, as visualized shows no obvious abnormalities. Neither ovary is identified with certainty. There is no free pelvic fluid. Cursory evaluation of the kidneys reveals no hydronephrosis or perinephric fluid. US/US pelvic complete IMPRESSION: NEGATIVE POST HYSTERECTOMY PELVIS. Impression dictated by: Eloise Lim M.D.10/29/2022 3:30 PM Dictation Location: [place] [address] Tech: Iris Floresley Transcribed By: AARON 10/29/22 1530 Dictated By: Eloise Lim MD 10/29/22 1529 Signed By: 10/29/[address] [facility] US pelvic complete [facility] [employer] Other US pelvic complete [facility] [employer] Other US pelvic complete [address] [facility] [employer] [place] [address] [employer] Other US pelvic complete Ultrasound Report [employer] Other US pelvic complete Signed [employer] Other US pelvic complete Patient: Fiorella Vicente MR#: [id number] [employer] Other US pelvic complete 13 [employer] Other US pelvic complete : 1940 Acct:[id number] [employer] Other US pelvic complete Age/Sex: 82 / F ADM Date: 10/29/22 [employer] Other US pelvic complete Loc: Room: Type: [facility] [employer] Other US pelvic complete Attending Dr: Clinton Dejesus [facility] [employer] Other US pelvic complete Ordering Provider: ALEXIA DEJESUS [employer] Other US pelvic complete Date of Service: 10/29/22 [employer] Other US pelvic complete [phone]) US/US pelvic complete: Pelvic pain [employer] Other US pelvic complete Copies to: Mariella DEJESUS [facility] [employer] Other US pelvic complete PELVIC ULTRASOUND [employer] Other US pelvic complete CLINICAL DATA: Pelvi c pain with loose stool for the past few months and urinary tract infection. [employer] Other US pelvic complete Previous partial hysterectomy. [employer] Other US pelvic complete COMPARISON: CT 09/20/2022 [employer] Other US pelvic complete The uterus is surgic ally absent. The vaginal cuff, as visualized shows no obvious abnormalities. [employer] Other US pelvic complete the kidneys reveals no hydronephrosis or perinephric fluid. [employer] Other US pelvic complete U S/US pelvic complete [facility] [employer] Other US pelvic complete IMPRESSION: [facility] [employer] Other US pelvic complete Negative [facility] [employer] Other US pelvic complete Impression dictated by: Eloise Lim M.D.10/29/2022 3:30 PM [employer] Other US pelvic complete Dictation Location: RADIO-PC-10 [facility] [employer] Other US pelvic complete Tech: Iris Lucero [facility] [employer] Other US pelvic complete Transcribed By: PWS 10/29/[address] [place] [address] [employer] Other US pelvic complete Dictated By: Eloise Lim MD 10/29/[address] [place] [address] [employer] Other US pelvic complete Signed By: [employer] Other US pelvic complete 10/29/[address] [place] [address] [employer] Other Urinalysis - AUTOMATEDon Appearance (U) clear [employer] Other Bilirubin Ql (U) Negative [facility] [employer] Other Color (U) yellow [facility] [employer] Other Glucose Ql (U) Negative [employer] Other Hemoglobin Ql (U) trace-intact [employer] Other Ketones Ql (U) Negative [employer] Other Leukocyte esterase Test stri p Ql (U) trace [facility] [employer] Other Nitrite Ql (U) Negative [employer] Other pH (U) 7.0 [pH] [facility] [employer] Other Protein Ql (U) Negative [employer] Other Specific gravity (U) [Rel density] 1.015 [facility] [employer] Other Urobilinogen (U) [Mass/Vol] 0.2 mg/dL [facility] [employer] Other Urinalysis - AUTOMATED [facility] [employer] Other Urine Cultureon 10-26-2022 Bacteria identified Cx Nom (U) Reason for Exam Dysuria Urine 50,000 colonies/ml mixed bacterial skin contaminants 2 Days PERFORMED BY: [place] [address] PATHOLOGIST [employer] TIM CHRISTIAN M.D. [facility] Comment on above: Performed By: #### C REAT, LYTES, LIPID, BUN, CBC, PP #### [facility] [facility] [address] [place] [address] Bacteria identified Cx Nom (U) [facility] [employer] Other Urine culture routineOrdered By: Arely Dasilva on 10-26-2022 Bacteria identified Cx Nom (U) 2 Days [facility] Bacteria identified Cx Nom (U) 2 Days [facility] Urinalysis - AUTOMATEDon Appearance (U) clear [employer] Other Bilirubin Ql (U) Negative Sight[facility] [employer] Other Color (U) yellow [facility] [employer] Other Glucose Ql (U) Negative [employer] Other Hemoglobin Ql (U) Negative [facility] [employer] Other Ketones Ql (U) Negative [employer] Other Leukocyte esterase Test stri p Ql (U) Negative [facility] Prof essional [employer] Other Nitrite Ql (U) Negative [employer] Other pH (U) 7.0 [pH] [facility] [employer] Other Protein Ql (U) Negative [employer] Other Specific gravity (U) [Rel density] 1.010 [place] [employer] Other Urobilinogen (U) [Mass/Vol] 0.2 mg/dL [facility] [employer] Other Urinalysis - AUTOMATED No rt [employer] Other Urine Cultureon 10-08-2022 Bacteria identified Cx Nom (U) Reason for Exam Dysuria Urine 20,000 colonies/ml mixed bacterial skin contaminants including mixed gram negative bacilli - 2 Days PERFORMED BY: [place] [id number] PATHOLOGIST [employer] TIM CHRISTIAN M.D. [facility] Comment on above: Performed By: #### C REAT, LYTES, LIPID, BUN, CBC, PP #### [address] Bacteria identified Cx Nom (U) [place] [employer] Other Urine culture routineOrdered By: ALEXIA DEJESUS on 10-08-2022 Bacteria identified Cx Nom (U) bacilli - 2 Days [facility] Bacteria identified Cx Nom (U) bacilli - [address] [facility] [address] abdomen pelvis w conon CT abdomen pelvis w [facility] [place] [address] [place] [address] CT Scan Report Signed Patient: Maritza Vicente MR#: [id number] 13 : 1940 Acct:[id number] Age/Sex: 82 / F ADM Date: 09/20/22 Loc: ER Room: Type: [facility] ER Attending Dr: Copies to: Sergio Lopez DO, RES Scotty J Fulton, DO Ordering Provider: Sergio Lopez DO, RES Date of Service: 09/20/22 CT/CT abdomen pelvis w con: LLQ abdominal pain, hx of diverticulosis. CT ABDOMEN AND PELVIS WITH INTRAVENOUS CONTRAST: CLINICAL HISTORY: Abdominal and pelvic pain. Recent weight loss. COMPARISON: CT abdomen and pelvis 09/20/2022 TECHNIQUE: Spiral images were obtained through the abdomen and pelvis following the administration of intravenous contrast. This CT exam was performed using one or more following dose reduction techniques: Automated exposure control, adjustment of the mA and/or kV according to patient size, or use of iterative reconstruction technique. FINDINGS: Lung Bases: [No acute findings. Mild lung scarring.] Organs:Gallbladder has been removed. Cystic changes of the liver. Liver and splenic granulomas. Pancreas demonstrates no focal abnormality. No enhancing renal mass or hydronephrosis. Adrenal glands appear unremarkable. Abdominal aorta appears normal in caliber. GI: Stomach is grossly unremarkable. Small bowel appears nondilated. Left colon diverticulosis.[ Pelvis:[Urinary bladder is grossly unremarkable. Uterus has been removed. No adnexal mass.] Peritoneum/Retroperitoneum:No free air, free fluid or lymphadenopathy.[ Abd wall/Bones:No acute findings. Osseous structures demonstrate degenerative change.[ CT/CT abdomen pelvis w con IMPRESSION: No acute findings. Impression dictated by: Sergio Rivera Jr., D.O.09/21/2022 8:40 AM Dictation Location: [place] [address] Transcribed By: [facility] 09/21/22839 Dictated By: Sergio Rivera Jr, DO 09/21/2228 Signed By: 09/21/22839 Normal [facility] Automated erythrocytes count in urine sediment (number/area)Ordered By: PROVIDER TEMP on 09-20-2022 RBC Auto (Urine sed) [#/Area] 0-1 [HPF] 0-4 [facility] Automated leukocytes count i n urine sediment (number/area)Ordered By: PROVIDER TEMP on 09-20-2022 WBC Auto (Urine sed) [#/Area] 20-49 [HPF] 0-4 [facility] Basic Metabolic Panelon 12- Anion gap [Moles/Vol] 10.2 mmol/L Normal 6.0-15.0 [facility] Comment on above: Performed By: #### C REAT, LYTES, LIPID, BUN, CBC, PP #### [facility] [address] Calcium [Mass/Vol] 9.8 mg/dL Normal 8.2-10.2 [facility] Comment on above: Performed By: #### C REAT, LYTES, LIPID, BUN, CBC, PP #### [address] Chloride [Moles/Vol] 97 mmol/L Normal 95-114 [facility] Comment on above: Performed By: #### C REAT, LYTES, LIPID, BUN, CBC, PP #### [address] CO2 [Moles/Vol] 30.5 mmol/L High 22.0-30.0 [facility] Comment on above: Performed By: #### C REAT, LYTES, LIPID, BUN, CBC, PP #### [address] Creatinine [Mass/Vol] 0.73 mg/dL Normal 0.44-1.03 [facility] Comment on above: Performed By: #### C REAT, LYTES, LIPID, BUN, CBC, PP #### [address] Creatinine Clr Calc Pharmacy 40.83 [facility] Comment on above: Performed By: #### C REAT, LYTES, LIPID, BUN, CBC, PP #### [address] Estimated GFR ( Sharmila > 60 [facility] Comment on above: Result Comment: GFR estimated reference range: According to KDOQI guidelines, <60 ml/min/1.73m2 is sufficient to diagnose a patient with chronic kidney disease. Performed By: #### C REAT, LYTES, LIPID, BUN, CBC, PP #### [address] Estimated GFR (Non- Am > 60 [facility] Comment on above: Performed By: #### C REAT, LYTES, LIPID, BUN, CBC, PP #### [facility] [address] [place] [address] [place] Glucose [Mass/Vol] 132 mg/dL High 70-100 [facility] Comment on above: Result Comment: [place] Glucose Reference Range is dependent on time and content of last meal. Glucose of more than 200 mg/dL in a nonstressed, ambulatory subject supports the diagnosis of Diabetes Mellitus. ADA recommended reference range Performed By: #### C REAT, LYTES, LIPID, BUN, CBC, PP #### [facility] [address] Potassium [Moles/Vol] 3.7 mmol/L Normal 3.5-5.1 [facility] Comment on above: Performed By: #### C REAT, LYTES, LIPID, BUN, CBC, PP #### [facility] [address] Sodium [Moles/Vol] 134 mmol/L Low 136-146 [facility] Comment on above: Performed By: #### C REAT, LYTES, LIPID, BUN, CBC, PP #### [facility] [address] Urea nitrogen [Mass/Vol] 11 mg/dL Normal 9-23 [facility] Comment on above: Performed By: #### C REAT, LYTES, LIPID, BUN, CBC, PP #### [facility] [address] [place] [address] [place] Basophils Auto (Bld) [#/Vol] Ordered By: PROVIDER TEMP on 09-20-2022 Basophils (Bld) [#/Vol] 0.0 10*3/uL 0.0-0.2 [facility] Basophils/100 WBC Auto (Bld) Ordered By: PROVIDER TEMP on 09-20-2022 Basophils/100 WBC (Bld) 0.5 % . [facility] Bilirubin Test strip Ql (U)O rdered By: PROVIDER TEMP on 09-20-2022 Bilirubin Ql (U) Negative Negative [facility] Body fluid albumin measureme nt (mass/volume)Ordered By: Maico Carranza on 09-20-2022 Albumin (Body fld) [Mass/Vol] 4.1 g/dL 3.2-5. 5 [facility] Color Auto (U)Ordered By: JOSEPH TRAMMELL on 09-20-2022 Color (U) Yellow Yellow [facility] Complete Blood Count Auto Di ffon 09-20-2022 Basophils (Bld) [#/Vol] 0.0 10*3/uL Normal 0.0-0.2 [facility] Comment on above: Result Comment: PERF ORMED BY: [facility] [address] [place] [address] PATHOLOGIST [employer] TIM CHRISTIAN M.D. Performed By: #### C REAT, LYTES, LIPID, BUN, CBC, PP #### [facility] [address] Basophils/100 WBC (Bld) 0.5 % Normal . [facility] Comment on above: Performed By: #### C REAT, LYTES, LIPID, BUN, CBC, PP #### [facility] [address] Eosinophils (Bld) [#/Vol] 0.2 10*3/uL Normal 0.0-0.45 [facility] Comment on above: Performed By: #### C REAT, LYTES, LIPID, BUN, CBC, PP #### [facility] [address] Eosinophils/100 WBC (Bld) 3.1 % Normal . [facility] Comment on above: Performed By: #### C REAT, LYTES, LIPID, BUN, CBC, PP #### [facility] [address] Erythrocyte distribution wid th (RBC) [Ratio] 13.8 % Normal 11.9-15.3 [facility] Comment on above: Performed By: #### C REAT, LYTES, LIPID, BUN, CBC, PP #### [facility] [address] Hematocrit (Bld) [Volume fraction] 39.3 % Normal 34.0-46.4 [facility] Comment on above: Performed By: #### C REAT, LYTES, LIPID, BUN, CBC, PP #### [address] Hemoglobin (Bld) [Mass/Vol] 13.2 g/dL Normal 11.8-15. 4 [facility] Comment on above: Performed By: #### C REAT, LYTES, LIPID, BUN, CBC, PP #### [address] Lymphocytes (Bld) [#/Vol] 1.7 10*3/uL Normal 1.00-4.8 [facility] Comment on above: Performed By: #### C REAT, LYTES, LIPID, BUN, CBC, PP #### [address] Lymphocytes/100 WBC (Bld) 26.9 % Normal . [facility] Comment on above: Performed By: #### C REAT, LYTES, LIPID, BUN, CBC, PP #### [address] MCH (RBC) [Entitic mass] 28.7 pg Normal 24.7-34.3 [facility] Comment on above: Performed By: #### C REAT, LYTES, LIPID, BUN, CBC, PP #### [address] MCV (RBC) [Entitic vol] 85.5 fL Normal 80-100 [facility] Comment on above: Performed By: #### C REAT, LYTES, LIPID, BUN, CBC, PP #### [address] Mean Corpuscular HGB Conc 33.5 g/dL Normal 32.0-35.0 [facility] Comment on above: Performed By: #### C REAT, LYTES, LIPID, BUN, CBC, PP #### [address] Monocytes (Bld) [#/Vol] 0.6 10*3/uL Normal 0.0-0.8 [facility] Comment on above: Performed By: #### C REAT, LYTES, LIPID, BUN, CBC, PP #### [facility] [address] Monocytes/100 WBC (Bld) 15.13 % Normal 0.00-20.00 [facility] Comment on above: Performed By: #### C REAT, LYTES, LIPID, BUN, CBC, PP #### [facility] [address] Monocytes/100 WBC (Bld) 9.5 % Normal . [facility] Comment on above: Performed By: #### C REAT, LYTES, LIPID, BUN, CBC, PP #### [facility] [address] Neutrophils (Bld) [#/Vol] 3.9 10*3/uL Normal 1.8-7.7 [facility] Comment on above: Performed By: #### C REAT, LYTES, LIPID, BUN, CBC, PP #### [facility] [address] Neutrophils/100 WBC (Bld) 60.0 % Normal . [facility] Comment on above: Performed By: #### C REAT, LYTES, LIPID, BUN, CBC, PP #### [facility] [address] NRBC% 0.0 /100{WBC} Normal 0-0.5 [facility] Comment on above: Performed By: #### C REAT, LYTES, LIPID, BUN, CBC, PP #### [facility] [address] Platelet mean volume (Bld) [Entitic vol] 7.5 fL Normal 6.3-10.7 [facility] Comment on above: Performed By: #### C REAT, LYTES, LIPID, BUN, CBC, PP #### [place] [address] [place] Platelets (Bld) [#/Vol] 211 10*3/uL Normal 150-450 [facility] Comment on above: Performed By: #### C REAT, LYTES, LIPID, BUN, CBC, PP #### [facility] [address] RBC (Bld) [#/Vol] 4.60 10*6/uL Normal 3.60-5.00 [facility] Comment on above: Performed By: #### C REAT, LYTES, LIPID, BUN, CBC, PP #### [facility] [address] WBC (Bld) [#/Vol] 6.5 10*3/uL Normal 3.8-11.6 [facility] Comment on above: Performed By: #### C REAT, LYTES, LIPID, BUN, CBC, PP #### [facility] [address] Creatinine and Glomerular fi ltration rate.predicted panel (S/P/Bld)Ordered By: Maico Carranza on 09-20-2022 Creatinine [Mass/Vol] 0.73 mg/dL 0.44-1.03 [facility] Dipstick and Microscopicon 1 11-21-2021 Appearance (U) Clear Normal Clear [facility] Comment on above: Order Comment: Name Collection Type:: Clean-Voided Midstream Performed By: #### C REAT, LYTES, LIPID, BUN, CBC, PP #### [facility] [address] Bacteria,Urine None Seen Normal None Seen [facility] Comment on above: Order Comment: Name Collection Type:: Clean-Voided Midstream Performed By: #### C REAT, LYTES, LIPID, BUN, CBC, PP #### [facility] [address] [place] [address] [place] Bilirubin,Urine Negative Normal Negative [facility] Comment on above: Order Comment: Name Collection Type:: Clean-Voided Midstream Performed By: #### C REAT, LYTES, LIPID, BUN, CBC, PP #### [address] Color (U) Yellow Normal Yellow [facility] Comment on above: Order Comment: Name Collection Type:: Clean-Voided Midstream Performed By: #### C REAT, LYTES, LIPID, BUN, CBC, PP #### [address] Glucose Ql (U) Normal Normal Normal [facility] Comment on above: Order Comment: Name Collection Type:: Clean-Voided Midstream Performed By: #### C REAT, LYTES, LIPID, BUN, CBC, PP #### [address] Hyaline Casts,Urine 0-8 Normal 0-8 [facility] Comment on above: Order Comment: Name Collection Type:: Clean-Voided Midstream Result Comment: PERF ORMED BY: [place] [address] PATHOLOGIST [employer] TIM CHRISTIAN M.D. Performed By: #### C REAT, LYTES, LIPID, BUN, CBC, PP #### [address] Ketones Ql (U) Negative Normal Negative [facility] Comment on above: Order Comment: Name Collection Type:: Clean-Voided Midstream Performed By: #### C REAT, LYTES, LIPID, BUN, CBC, PP #### [address] Leukocyte esterase Test stri p Ql (U) 3+ High Negative [facility] Comment on above: Order Comment: Name Collection Type:: Clean-Voided Midstream Performed By: #### C REAT, LYTES, LIPID, BUN, CBC, PP #### [address] Nitrite,Urine Negative Normal Negative [facility] Comment on above: Order Comment: Name Collection Type:: Clean-Voided Midstream Performed By: #### C REAT, LYTES, LIPID, BUN, CBC, PP #### [address] [place] [address] [place] Occult Blood,Urine Negative Normal Negative [facility] Comment on above: Order Comment: Name Collection Type:: Clean-Voided Midstream Result Comment: PERF ORMED BY: [place] [address] PATHOLOGIST [employer] TIM CHRISTIAN M.D. Performed By: #### C REAT, LYTES, LIPID, BUN, CBC, PP #### [address] pH (U) 6.0 [pH] Normal 5.0-9.0 [facility] Comment on above: Order Comment: Name Collection Type:: Clean-Voided Midstream Performed By: #### C REAT, LYTES, LIPID, BUN, CBC, PP #### [address] Protein,Urine Negative Normal Negative [facility] Comment on above: Order Comment: Name Collection Type:: Clean-Voided Midstream Performed By: #### C REAT, LYTES, LIPID, BUN, CBC, PP #### [address] RBC LM.HPF (Urine sed) [#/Area] 0 /[HPF] Normal 0-4 [facility] Comment on above: Order Comment: Name Collection Type:: Clean-Voided Midstream Performed By: #### C REAT, LYTES, LIPID, BUN, CBC, PP #### [address] Specificy Hepzibah,Urine 1.012 Normal 1.001-1.030 [facility] Comment on above: Order Comment: Name Collection Type:: Clean-Voided Midstream Performed By: #### C REAT, LYTES, LIPID, BUN, CBC, PP #### [address] Squamous Epithelial Cell,Urine 5-9 High 0-2 [facility] Comment on above: Order Comment: Name Collection Type:: Clean-Voided Midstream Performed By: #### C REAT, LYTES, LIPID, BUN, CBC, PP #### [facility] [address] Urobilinogen,Urine Normal Normal Normal [facility] Comment on above: Order Comment: Name Collection Type:: Clean-Voided Midstream Performed By: #### C REAT, LYTES, LIPID, BUN, CBC, PP #### [facility] [address] WBC,Urine 20-49 High 0-4 [facility] Comment on above: Order Comment: Name Collection Type:: Clean-Voided Midstream Performed By: #### C REAT, LYTES, LIPID, BUN, CBC, PP #### [facility] [address] Direct bilirubin measurement Ordered By: Maico Carranza on 09-20-2022 Bilirubin.direct [Mass/Vol] 0.1 mg/dL 0.0-0.4 [facility] ECG 12 lead ECGon 09-20-2022 ECG 12 lead ECG [facility] [place] [address] [place] [address] Electrocardiograph Report Signed Patient: Maritza Vicente MR#: [id number] 13 : 1940 Acct:[id number] Age/Sex: 82 / F ADM Date: 09/20/22 Loc: ER Room: Type: [facility] ER Attending Dr: Ordering Provider: Sergio Lopez DO, RES Date of Service: 09/20/2206/04/2133 ECG/ECG 12 lead ECG: Chest Pain Copies to: Test Reason : Blood Pressure : / mmHG Vent. Rate : 071 BPM Atrial Rate : 071 BPM P-R Int : 160 ms QRS Dur : 080 ms QT Int : 374 ms P-R-T Axes : 042 069 078 degrees QTc Int : 406 ms Normal sinus rhythm Normal ECG When compared with ECG of 14-JUL-2022 18:00, No significant change was found Confirmed by Maico Carranza DO ([id number]) on 09/20/2022 11:20:01 PM Referred By: Electronically Signed By:Maico Carranza DO Transcribed By: MUS Signed By Maico Carranza DO 09/20 2320 Normal [facility] Eosinophils Auto (Bld) [#/Vo l]Ordered By: PROVIDER TEMP on 09-20-2022 Eosinophils (Bld) [#/Vol] 0.2 10*3/uL 0.0-0.45 [facility] Eosinophils/100 WBC Auto (Bl d)Ordered By: PROVIDER TEMP on 09-20-2022 Eosinophils/100 WBC (Bld) 3.1 % . [facility] Erythrocyte distribution wid th Auto (RBC) [Ratio]Ordered By: PROVIDER TEMP on 09-20-2022 Erythrocyte distribution wid th (RBC) [Ratio] 13.8 % 11.9-15.3 [facility] Estimated glomerular filtrat ion rate (GFR) non- AmericanOrdered By: Maico Carranza on 09-20-2022 GFR/1.73 sq M.predicted di g non-blacks MDRD (S/P/Bld) [Vol rate/Area] > 60 mL/Min [facility] Globulin Calc (S) [Mass/Vol] Ordered By: Maico Carranza on 09-20-2022 Globulin (S) [Mass/Vol] 2.7 g/dL [facility] Hematocrit Auto (Bld) [Volum e fraction]Ordered By: PROVIDER TEMP on 09-20-2022 Hematocrit (Bld) [Volume fraction] 39.3 % 3 4.0-46.4 [facility] Hemoglobin [Mass/volume] in BloodOrdered By: PROVIDER TEMP on 09-20-2022 Hemoglobin (Bld) [Mass/Vol] 13.2 g/dL 11.8-15. 4 [facility] Hepatic Panelon 09-20-2022 Albumin [Mass/Vol] 4.1 g/dL Normal 3.2-5.5 [facility] Comment on above: Performed By: #### C DIAN PATEL, LIPID, BUN, CBC, PP #### [facility] [address] Albumin/Globulin [Mass ratio] 1.5 {ratio} Normal [facility] Comment on above: Performed By: #### C REAT, LYTES, LIPID, BUN, CBC, PP #### [address] ALP [Catalytic activity/Vol] 43 U/L Normal 32-92 [facility] Comment on above: Performed By: #### C REAT, LYTES, LIPID, BUN, CBC, PP #### [address] ALT [Catalytic activity/Vol] 21 U/L Normal 10-60 [facility] Comment on above: Performed By: #### C REAT, LYTES, LIPID, BUN, CBC, PP #### [address] AST [Catalytic activity/Vol] 27 U/L Normal 10-42 [facility] Comment on above: Performed By: #### C REAT, LYTES, LIPID, BUN, CBC, PP #### [address] Bilirubin [Mass/Vol] 0.5 mg/dL Normal 0.3-1.2 [facility] Comment on above: Performed By: #### C REAT, LYTES, LIPID, BUN, CBC, PP #### [address] Bilirubin,Indirect 0.4 mg/dL Normal [facility] Comment on above: Performed By: #### C REAT, LYTES, LIPID, BUN, CBC, PP #### [address] Bilirubin.indirect [Mass/Vol] 0.1 mg/dL Normal 0.0-0. 4 [facility] Comment on above: Performed By: #### C REAT, LYTES, LIPID, BUN, CBC, PP #### [address] Globulin (S) [Mass/Vol] 2.7 g/dL Normal [facility] Comment on above: Performed By: #### C REAT, LYTES, LIPID, BUN, CBC, PP #### [address] [address] [place] Protein [Mass/Vol] 6.8 g/dL Normal 6.1-7.9 [facility] Comment on above: Performed By: #### C REAT, LYTES, LIPID, BUN, CBC, PP #### [facility] [address] Ketones Auto test strip (U) [Mass/Vol]Ordered By: PROVIDER TEMP on 09-20-2022 Ketones (U) [Mass/Vol] Negative Negative [facility] - Chemistry and C hemistry - challengeOrdered By: Maico Carranza on 09-20-2022 Lipase [Catalytic activity/Vol] 35.0 U/L 22- 1 [facility] - UrinalysisOrder ed By: PROVIDER TEMP on 09-20-2022 Hyaline casts LM Ql (Urine sed) 0-8 [LPF] 0-8 [facility] Leukocytes [#/volume] correc ryanne for nucleated erythrocytes in Blood by Automated counOrdered By: PROVIDER TEMP on 09-20-2022 WBC corrected for nucl RBC A uto (Bld) [#/Vol] 6.5 10*3/uL 3.8-11.6 [facility] Lipaseon 09-20-2022 Lipase [Catalytic activity/Vol] 35.0 U/L Normal - 1 [facility] Comment on above: Result Comment: PERF ORMED BY: [address] [place] [address] PATHOLOGIST [employer] TIM CHRISTIAN M.D. Performed By: #### C REAT, LYTES, LIPID, BUN, CBC, PP #### [facility] [address] [place] [address] [place] Lymphocytes Auto (Bld) [#/Vo l]Ordered By: PROVIDER TEMP on 09-20-2022 Lymphocytes (Bld) [#/Vol] 1.7 10*3/uL 1.00-4.8 [facility] Lymphocytes/100 WBC Auto (Bl d)Ordered By: PROVIDER TEMP on 09-20-2022 Lymphocytes/100 WBC (Bld) 26.9 % . [facility] MCH Auto (RBC) [Entitic mass ]Ordered By: PROVIDER TEMP on 09-20-2022 MCH (RBC) [Entitic mass] 28.7 pg 24.7-34.3 [facility] MCHC Auto (RBC) [Mass/Vol]Or dered By: PROVIDER TEMP on 09-20-2022 MCHC (RBC) [Mass/Vol] 33.5 g/dL 32.0-35.0 [facility] MCV Auto (RBC) [Entitic vol] Ordered By: PROVIDER TEMP on 09-20-2022 MCV (RBC) [Entitic vol] 85.5 fL 80-100 [facility] Monocyte distribution width [Entitic volume] in Blood by AutomatedOrdered By: PROVIDER TEMP on 09-20-2022 Monocyte distribution width Auto (Bld) [Entitic vol] 15.13 % 0.00-20.00 [facility] Monocytes Auto (Bld) [#/Vol] Ordered By: PROVIDER TEMP on 09-20-2022 Monocytes (Bld) [#/Vol] 0.6 10*3/uL 0.0-0.8 [facility] Monocytes/100 WBC Auto (Bld) Ordered By: PROVIDER TEMP on 09-20-2022 Monocytes/100 WBC (Bld) 9.5 % . [facility] Neutrophils Auto (Bld) [#/Vo l]Ordered By: PROVIDER TEMP on 09-20-2022 Neutrophils (Bld) [#/Vol] 3.9 10*3/uL 1.8-7.7 [facility] Neutrophils/100 WBC Auto (Bl d)Ordered By: PROVIDER TEMP on 09-20-2022 Neutrophils/100 WBC (Bld) 60.0 % . [facility] Nitrite Test strip Ql (U)Ord ered By: PROVIDER TEMP on 09-20-2022 Nitrite Ql (U) Negative Negative [facility] No Panel InformationOrdered By: Maico Carranza on 09-20-2022 Estimated GFR () > 60 mL/Min [facility] Comment on above: GFR estimated refere nce range: According to KDOQI guidelines, <60 ml/min/1.73m2 is sufficient to diagnose a patient with chronic kidney disease. Pharmacy Creatinine Clearance (Chem 40.83 [facility] Nucleated erythrocytes [Pres ence] in Blood by Automated countOrdered By: PROVIDER TEMP on 09-20-2022 Nucleated RBC Auto Ql (Bld) 0.0 /100{WBC} 0-0.5 [facility] Platelet mean volume Auto (B ld) [Entitic vol]Ordered By: PROVIDER TEMP on 09-20-2022 Platelet mean volume (Bld) [Entitic vol] 7.5 fL 6.3-10.7 [facility] Platelets Auto (Bld) [#/Vol] Ordered By: PROVIDER TEMP on 09-20-2022 Platelets (Bld) [#/Vol] 211 10*3/uL 150-450 [facility] Protein Auto test strip (U) [Mass/Vol]Ordered By: PROVIDER TEMP on 09-20-2022 Protein (U) [Mass/Vol] Negative Negative [facility] Protein [Mass/volume] in Ser um or PlasmaOrdered By: Maico Carranza on 09-20-2022 Protein [Mass/Vol] 6.8 g/dL 6.1-7.9 [facility] RBC Auto (Bld) [#/Vol]Ordere d By: PROVIDER TEMP on 09-20-2022 RBC (Bld) [#/Vol] 4.60 10*6/uL 3.60-5.00 [facility] Serum or plasma alanine gorman otransferase measurement without P-5'-P (enzymatic activiOrdered By: Maico Carranza on 09-20-2022 ALT No additional P-5'-P [Ca talytic activity/Vol] 21 U/L 10-60 [facility] Serum or plasma albumin/glob ulin mass ratioOrdered By: Maico Carranza on 09-20-2022 Albumin/Globulin [Mass ratio] 1.5 {ratio} [facility] Health Serum or plasma alkaline sarita sphatase measurement (enzymatic activity/volume)Ordered By: Maico Carranza on 09-20-2022 ALP [Catalytic activity/Vol] 43 U/L 32-92 [facility] Serum or plasma anion gap de terminationOrdered By: Maico Carranza on 09-20-2022 Anion gap [Moles/Vol] 10.2 mmol/L 6.0-15.0 [facility] Serum or plasma aspartate am inotransferase measurement (enzymatic activity/volume)Ordered By: Maico Carranza on 09-20-2022 AST [Catalytic activity/Vol] 27 U/L 10-42 [facility] Serum or plasma calcium luna urement (mass/volume)Ordered By: Maico Carranza on 09-20-2022 Calcium [Mass/Vol] 9.8 mg/dL 8.2-10.2 [facility] Serum or plasma chloride haider surement (moles/volume)Ordered By: Maico Carranza on 09-20-2022 Chloride [Moles/Vol] 97 mmol/L 95-114 [facility] Serum or plasma glucose luna urement (mass/volume)Ordered By: Maico Carranza on 09-20-2022 Glucose [Mass/Vol] 132 mg/dL 70-100 [facility] Comment on above: ADA recommended refe rence rangeRandom Glucose Reference Range is dependent on time and content of last meal. Glucose of more than 200 mg/dL in a nonstressed, ambulatory subject supports the diagnosis of Diabetes Mellitus. Serum or plasma non-glucuron idated bilirubin measurement (mass/volume)Ordered By: Maico Carranza on 09-20-2022 Bilirubin.indirect [Mass/Vol] 0.4 mg/dL [facility] Serum or plasma potassium me asurement (moles/volume)Ordered By: Maico Carranza on 09-20-2022 Potassium [Moles/Vol] 3.7 mmol/L 3.5-5.1 [facility] Serum or plasma sodium measu rement (moles/volume)Ordered By: Maico Carranza on 09-20-2022 Sodium [Moles/Vol] 134 mmol/L 136-146 [facility] Serum or plasma total biliru bin measurement (mass/volume)Ordered By: Maico Carranza on 09-20-2022 Bilirubin [Mass/Vol] 0.5 mg/dL 0.3-1.2 [facility] Serum or plasma total carbon dioxide measurement (moles/volume)Ordered By: Maico Carranza on 09-20-2022 CO2 [Moles/Vol] 30.5 mmol/L 22.0-30.0 [facility] Serum or plasma urea nitroge n measurement (mass/volume)Ordered By: Maico Carranza on 09-20-2022 Urea nitrogen [Mass/Vol] 11 mg/dL 07-06 [facility] Specific gravity Auto test s trip (U) [Rel density]Ordered By: PROVIDER TEMP on 09-20-2022 Specific gravity (U) [Rel density] 1.012 1.001-1.030 [facility] Squamous epithelial cells de tection in urine sediment by light microscopyOrdered By: PROVIDER TEMP on 09-20-2022 Epithelial cells.squamous LM Ql (Urine sed) 5-9 [HPF] 0-2 [facility] Troponin I High Sensitivityo n 09-20-2022 Troponin I High Sensitivity < 3 Normal 0-15 [facility] Comment on above: Order Comment: Comme nt add on Result Comment: PERF ORMED BY: [address] [place] [address] PATHOLOGIST [employer] TIM CHRISTIAN M.D. Performed By: #### C REAT, LYTES, LIPID, BUN, CBC, PP #### [facility] [place] [facility] [address] [place] [address] Troponin I.cardiac [Mass/vol ume] in Serum or Plasma by High sensitivity methodOrdered By: Sergio Lopez on 09-20-2022 Troponin I.cardiac High sens itivity method [Mass/Vol] < 3 pg/mL 0-15 [facility] Urine Cultureon 09-20-2022 Bacteria identified Cx Nom (U) >100,000 colonies/ml mixed bacterial skin contaminants 2 Days PERFORMED BY: [address] [place] [address] PATHOLOGIST [employer] TIM CHRISTIAN M.D. Normal [facility] Comment on above: Performed By: #### C REAT, LYTES, LIPID, BUN, CBC, PP #### [facility] [place] [facility] [address] [place], [place] [id number] [place] Urine bacteria detection by automated methodOrdered By: PROVIDER TEMP on 09-20-2022 Bacteria Auto Ql (U) None seen None Seen [facility] Urine clarity by refractomet ry automatedOrdered By: PROVIDER TEMP on 09-20-2022 Clarity Refractometry automated (U) Clear Clear [facility] Urine culture routineOrdered By: PROVIDER TEMP on 09-20-2022 Bacteria identified Cx Nom (U) 2 Days [facility] Urine glucose measurement by automated test strip (mass/volume)Ordered By: PROVIDER TEMP on 09-20-2022 Glucose Auto test strip (U) [Mass/Vol] Normal mg/dL Normal [facility] Urine hemoglobin detection b y automated test stripOrdered By: PROVIDER TEMP on 09-20-2022 Hemoglobin Auto test strip Ql (U) Negative Ne gative [facility] Urine leukocyte esterase det ection by automated test stripOrdered By: PROVIDER TEMP on 09-20-2022 Leukocyte esterase Auto test strip Ql (U) 3+ Negative [facility] Urobilinogen Auto test strip (U) [Mass/Vol]Ordered By: PROVIDER TEMP on 09-20-2022 Urobilinogen (U) [Mass/Vol] Normal mg/dL Normal [facility] WBC Auto (Bld) [#/Vol]Ordere d By: PROVIDER TEMP on 09-20-2022 WBC (Bld) [#/Vol] 6.5 10*3/uL 3.8-11.6 [facility] pH Auto test strip (U)Ordere d By: PROVIDER TEMP on 09-20-2022 pH (U) 6.0 [pH] 5.0-9.0 [facility] FERRITINon 09-11-2022 Ferritin [Mass/Vol] 61.0 ng/mL Normal 8.0-252.0 [facility] Comment on above: Performed By: #### H STROPN, BNP, LIPA, CMP, TSH #### [facility] [address] [address] [address] Alyson Rowley IRON AND TIBCon 09-11-2022 % SATURATION 19.0 % Normal [facility] Comment on above: Performed By: #### H STROPN, BNP, LIPA, CMP, TSH #### [facility] [address] [place], [place] [address] Dr. Alyson Rowley Iron [Mass/Vol] 70.0 ug/dL Normal 50.0-170.0 [facility] Comment on above: Performed By: #### H STROPN, BNP, LIPA, CMP, TSH #### [facility] [address] [place], [place] [address] Dr. Alyson Rowley TIBC DIRECT 368.0 ug/dL Normal 250.0-450.0 [facility] Comment on above: Performed By: #### H STROPN, BNP, LIPA, CMP, TSH #### [facility] [id number] Alyson Rowley PROF 14(COMP METB)on 022 Albumin [Mass/Vol] 3.9 g/dL Normal 3.4-5.0 [facility] Comment on above: Performed By: #### C MP ####[facility] [address] [address]DrJulia Rowley Albumin/Globulin [Mass ratio] 1.2 {ratio} Normal [facility] Comment on above: Performed By: #### C MP ####[facility] [address] [place] [address] [id number] Rowley ALP [Catalytic activity/Vol] 55 U/L Normal 46-116 [facility] Comment on above: Performed By: #### C MP ####[facility] [address] [place] [id number] Rowley ALT [Catalytic activity/Vol] 26 U/L Normal 14-59 [facility] Comment on above: Performed By: #### C MP ####[facility] [address] [place] [id number] Rowley Anion gap [Moles/Vol] 8.2 mmol/L Normal [facility] Comment on above: Performed By: #### C MP ####[facility] [address] [place] [id number] Rowley AST [Catalytic activity/Vol] 17 U/L Normal 15-37 [facility] Comment on above: Performed By: #### C MP ####[facility] [address] [place] [address]Dr. Alyson Rowley Bilirubin [Mass/Vol] 0.4 mg/dL Normal 0.2-1.0 [facility] Comment on above: Performed By: #### C MP ####[facility] [address] [place] [address]Dr. Alyson Rowley Calcium [Mass/Vol] 9.6 mg/dL Normal 8.5-10.1 [facility] Comment on above: Performed By: #### C MP ####[facility] [address] [place] [address]Dr. Alyson Rowley Chloride [Moles/Vol] 97 mmol/L Critically low 98-107 [facility] Comment on above: Performed By: #### C MP ####[facility] [address] [place], [place] [address]Dr. Alyson Rowley CO2 [Moles/Vol] 33.0 mmol/L Critically high 21.0-32.0 [facility] Comment on above: Performed By: #### C MP ####[facility] [address] [place], [place] [address]Dr. Alyson Rowley Creatinine [Mass/Vol] 0.63 mg/dL Normal 0.55-1.02 [facility] Comment on above: Performed By: #### C MP ####[facility] [address] [place], [place] [address]Dr. Alyson Armik EGFR-AF TURKISH >60 Normal >=60 [facility] Comment on above: Performed By: #### C MP ####[facility] [address] [address]Dr. Alyson Amrik EGFR-NON AF TURKISH >60 Normal >=60 [facility] Comment on above: Performed By: #### C MP ####[facility] [address] [place] [id number]. Alyson Rowley Globulin (S) [Mass/Vol] 3.3 g/dL Normal T [facility] Comment on above: Performed By: #### C MP ####[facility] [address] [id number]. Alyson Rowley Glucose [Mass/Vol] 98 mg/dL Normal 74-106 [facility] Comment on above: Performed By: #### C MP ####[facility] [address] [place] [id number]. Alyson Rowley Potassium [Moles/Vol] 4.2 mmol/L Normal 3.5-5.1 [facility] Comment on above: Performed By: #### C MP ####[facility] [address] [place] [id number]. Alyson Rowley Protein [Mass/Vol] 7.2 g/dL Normal 6.4-8.2 [facility] Comment on above: Performed By: #### C MP ####[facility] [address] [place] [address]Dr. Alyson Rowley Sodium [Moles/Vol] 134 mmol/L Critically low 136-145 [facility] Comment on above: Performed By: #### C MP ####[facility] [address] [place] [address]Dr. Alyson Rowley Urea nitrogen [Mass/Vol] 14.0 mg/dL Normal 7.0-18.0 [facility] Comment on above: Performed By: #### C MP ####[facility] [address] [place] [address]Dr. Alyson Rowley Urea nitrogen/Creatinine [Mass ratio] 22.2 mg/mg Normal [facility] Comment on above: Performed By: #### C MP ####[facility] [address] [place] [address]Dr. Alyson Rowley VITAMIN B12on 09-11-2022 Cobalamin (Vitamin B12) [Mass/Vol] 664.0 pg/mL Normal 193.0-986.0 [facility] Comment on above: Performed By: #### H STROPN, BNP, LIPA, CMP, TSH #### [facility] [address] [address] [address] Alyson Rowley VITAMIN D 25 OHon 09-11-2022 VIT D 25-OH 81.3 ng/mL Normal [facility] Comment on above: Performed By: #### H STROPN, BNP, LIPA, CMP, TSH #### [facility] [address] [place] [address] Dr. Alyson Rowley VIT D RANGES SEE BELOW Normal [facility] Comment on above: Result Comment: <20 ng/mL Vit D deficient 20 - <30 ng/mL Vit D insufficient 30 - 100 ng/mL Vit D sufficient >100 ng/mL Potential Toxicity Performed By: #### H STROPN, BNP, LIPA, CMP, TSH #### [facility] [address] [place] [address] Dr. Alyson Rowley CBC AUTO DIFFon 09-02-2022 BASO # 0.0 103/ul Normal 0.0-0.1 [facility] Comment on above: Performed By: #### H STROPN, BNP, LIPA, CMP, TSH #### [facility] [address] [place] [address] Dr. Alyson Rowley Basophils/100 WBC (Bld) 0.8 % Normal 0.2-2.0 [facility] Comment on above: Performed By: #### H STROPN, BNP, LIPA, CMP, TSH #### [facility] [address] [place] [address] Dr. Alyson Rowley EO # 0.2 103/ul Normal 0.0-0.7 [facility] Comment on above: Performed By: #### H STROPN, BNP, LIPA, CMP, TSH #### [facility] [address] [place] [address] Dr. Alyson Rowley Eosinophils/100 WBC (Bld) 4.8 % Normal 0.9-7.0 [facility] Comment on above: Performed By: #### H STROPN, BNP, LIPA, CMP, TSH #### [facility] [address] [place] [address] Dr. Alyson Rowley Erythrocyte distribution wid th (RBC) [Ratio] 13.2 % Normal 11.0-15.[address] [facility] pital Comment on above: Performed By: #### H STROPN, BNP, LIPA, CMP, TSH #### [facility] [address] [place] [address] Dr. Alyson Rowley Hematocrit (Bld) [Volume fraction] 39.1 % Normal 3 6.0-48.0 [facility] Comment on above: Performed By: #### H STROPN, BNP, LIPA, CMP, TSH #### [facility] [address] [place] [address] Dr. Alyson Rowley Hemoglobin (Bld) [Mass/Vol] 13.2 g/dL Normal 12.0-16. 0 [facility] Comment on above: Performed By: #### H STROPN, BNP, LIPA, CMP, TSH #### [facility] [address] [place] [address] Dr. Alyson Rowley IG # 0.00 10e3/ul Normal 0.00-0.03 [facility] Comment on above: Performed By: #### H STROPN, BNP, LIPA, CMP, TSH #### [facility] [address] [place] [address] Dr. Alyson Rowley IG % 0.0 % Normal 0.0-0.5 [facility] Comment on above: Performed By: #### H STROPN, BNP, LIPA, CMP, TSH #### [facility] [address] [place] [address] Dr. Alyson Rowley LYMPH # 1.2 103/ul Normal 1.2-3.8 [facility] Comment on above: Performed By: #### H STROPN, BNP, LIPA, CMP, TSH #### [facility] [address] [place] [address] Dr. Alyson Rowley Lymphocytes/100 WBC (Bld) 23.2 % Normal 20.5-60.0 [facility] Comment on above: Performed By: #### H STROPN, BNP, LIPA, CMP, TSH #### [facility] [address] [place] [address] Dr. Alyson Rowley MANUAL DIFF REQ NO Normal [facility] Comment on above: Performed By: #### H STROPN, BNP, LIPA, CMP, TSH #### [facility] [address] [place] [address] Dr. Alyson Rowley MCH (RBC) [Entitic mass] 29.0 pg Normal 26.7-34.0 [facility] Comment on above: Performed By: #### H STROPN, BNP, LIPA, CMP, TSH #### [facility] [address] [place] [address] Dr. Alyson Rowley MCHC (RBC) [Mass/Vol] 33.8 g/dL Normal 29.9-35.2 [facility] Comment on above: Performed By: #### H STROPN, BNP, LIPA, CMP, TSH #### [facility] [address] [place] [address] Dr. Alyson Rowley MCV (RBC) [Entitic vol] 85.9 fL Normal 81.0-99.0 [facility] Comment on above: Performed By: #### H STROPN, BNP, LIPA, CMP, TSH #### [facility] [address] [place] [address] Dr. Alyson Rowley MONO # 0.4 103/ul Normal 0.3-0.8 [facility] Comment on above: Performed By: #### H STROPN, BNP, LIPA, CMP, TSH #### [facility] [address] [place] [address] Dr. Alyson Rowley Monocytes/100 WBC (Bld) 7.0 % Normal 1.7-12.0 [facility] Comment on above: Performed By: #### H STROPN, BNP, LIPA, CMP, TSH #### [facility] [address] [place] [address] Dr. Alyson Rowley NEUT # 3.2 103/ul Normal 1.4-6.5 [facility] Comment on above: Performed By: #### H STROPN, BNP, LIPA, CMP, TSH #### [facility] [address] [place] [address] Dr. Alyson Rowley Neutrophils/100 WBC (Bld) 64.2 % Normal 43.0-75.0 [facility] Comment on above: Performed By: #### H STROPN, BNP, LIPA, CMP, TSH #### [facility] [address] [address] [address] Alyson Rowley Platelet mean volume (Bld) [Entitic vol] 9.3 fL Critically low 9.5-13.[address] [facility] pital Comment on above: Performed By: #### H STROPN, BNP, LIPA, CMP, TSH #### [facility] [address] [address] [address] Alyson Rowley PLT 201 103/ul Normal 150-450 [facility] Comment on above: Performed By: #### H STROPN, BNP, LIPA, CMP, TSH #### [facility] [address] [place] [address] Dr. Alyson Rowley RBC 4.55 106/ul Normal 4.20-5.40 [facility] Comment on above: Performed By: #### H STROPN, BNP, LIPA, CMP, TSH #### [facility] [address] [address] [address] Alyson Rowley WBC 5.0 103/ul Normal 4.0-11.0 [facility] Comment on above: Performed By: #### H STROPN, BNP, LIPA, CMP, TSH #### [facility] [address] [place] [address] ABD/PELVIS WO CONon 09-02 CT ABD/PELVIS WO CON EXAMINATION: CT ABD /PELVIS WO CON, 09/02/2022 1:03 PM EST HISTORY: Abnormal weight loss COMPARISON: CT of the abdomen and pelvis with contrast 12/08/2019. TECHNIQUE: CT scan of the abdomen and pelvis was performed without IV contrast. CT dose reduction technique was used, including Automated Exposure Control. CT ABDOMEN: Heart size normal. Lung bases are grossly clear. Granulomatous type hepatic and splenic calcifications are present. Multiple small scattered hepatic cysts again noted. Dominant subcapsular cyst near the liver dome anteriorly for example measures 18 mm. The subcapsular cyst more caudally within the medial segment left hepatic lobe measures 3.3 x 2.2 cm. The gallbladder surgically absent. Spleen, pancreas, and adrenal glands demonstrate no acute abnormality. A midpole splenic cyst is faintly noted measuring 8 mm. There is no hydronephrosis or nephrolithiasis. Intracortical hemorrhagic/proteinaceous cyst involving the lateral cortex of the left kidney measures 7 mm, image 21. Atherosclerotic change of aorta and its branches without aneurysm noted. Severe diverticular disease of the colon predominantly involving sigmoid segment noted. No convincing evidence of appendicitis or diverticulitis. CT PELVIS: Urinary bladder appears unremarkable. Uterus and ovaries are surgically absent. No significantly enlarged adenopathy or ascites. Mild mid lumbar levocurvature centered at the L3 level with spondylitic/facet arthritic changes most apparent at L5/S1. Stable minimal grade 1 anterolisthesis of L4 on L5. Subacute nondisplaced fracture of the anterior left sixth rib noted. Multilevel lumbar canal stenosis is suggested. IMPRESSION: 1. Healing subacute nondisplaced anterior left sixth rib fracture deformity noted. 2. Multiple benign-appearing hepatic and splenic cysts. Subcentimeter hemorrhagic/proteinaceous midpole left renal cyst. 3. Prior cholecystectomy and hysterectomy. 4. Severe sigmoid diverticulosis without diverticulitis or appendicitis. Electronically authenticated by: Regalii Date: 2022-09-02 15:12 Normal [facility] ER URINE PROFILEon 2 Bilirubin Ql (U) Negative Normal NEGATIVE [facility] Comment on above: Performed By: #### H STROPN, BNP, LIPA, CMP, TSH #### [facility] [address] [address] [address] Alyson Rowley Clarity (U) CLEAR Normal CLEAR [facility] Comment on above: Performed By: #### H STROPN, BNP, LIPA, CMP, TSH #### [facility] [address] [place], [place] [address] Dr. Alyson Rowley Color (U) LT. YELLOW Normal YELLOW [facility] Comment on above: Performed By: #### H STROPN, BNP, LIPA, CMP, TSH #### [facility] [address] [place], [place] [address] Dr. Alyson Rowley ERUAHD A micrscopic examina tion will be performed if indicated. Normal [facility] Comment on above: Performed By: #### H STROPN, BNP, LIPA, CMP, TSH #### [facility] [address] [address] [address] Alyson Rowley Glucose Ql (U) Negative Normal NEGATIVE [facility] Comment on above: Performed By: #### H STROPN, BNP, LIPA, CMP, TSH #### [facility] [address] [address] [address] Alyson Rowley Hemoglobin Ql (U) Negative Normal NEGATIVE [facility] Comment on above: Performed By: #### H STROPN, BNP, LIPA, CMP, TSH #### [facility] [address] [address] [address] Alyson Rowley Ketones Ql (U) Negative Normal NEGATIVE [facility] Comment on above: Performed By: #### H STROPN, BNP, LIPA, CMP, TSH #### [facility] [address] [address] [address] Alyson Rowley LEUKOCYTES SMALL Abnormal NEGATIVE [facility] Comment on above: Performed By: #### H STROPN, BNP, LIPA, CMP, TSH #### [facility] [address] [address] [address] Alyson Rowley Nitrite Ql (U) Negative Normal NEGATIVE [facility] Comment on above: Performed By: #### H STROPN, BNP, LIPA, CMP, TSH #### [facility] [address] [address] [address] Alyson Rowley pH (U) 6.5 [pH] Normal 5-9 [facility] Comment on above: Performed By: #### H STROPN, BNP, LIPA, CMP, TSH #### [facility] [address] [address] [address] Alyson Rowley SPEC GRAVITY 1.015 Normal 1.005-<=1.025 [facility] Comment on above: Performed By: #### H STROPN, BNP, LIPA, CMP, TSH #### [facility] [address] [address] [address] Alyson Rowley UA PROTEIN Negative Normal NEGATIVE/ TRACE [facility] Comment on above: Performed By: #### H STROPN, BNP, LIPA, CMP, TSH #### [facility] [address] [address] [address] Alyson Rowley UR MICRO IND INDICATED Normal [facility] Comment on above: Performed By: #### H STROPN, BNP, LIPA, CMP, TSH #### [facility] [address] [address] [address] Alyson Rowley Urobilinogen Qn (U) 0.2 {Karen'U}/dL Normal 0.2 - 1. 0 [facility] Comment on above: Performed By: #### H STROPN, BNP, LIPA, CMP, TSH #### [facility] [address] [address] [address] Alyson Rowley PROF 14(COMP METB)on 09-02- 022 Albumin [Mass/Vol] 4.1 g/dL Normal 3.4-5.0 [facility] Comment on above: Performed By: #### C MP ####[facility] [address] [place] [address]DrJulia Rowley Albumin/Globulin [Mass ratio] 1.3 {ratio} Normal [facility] Comment on above: Performed By: #### C MP ####[facility] [address] [place] [address]Dr. Alyson Rowley ALP [Catalytic activity/Vol] 55 U/L Normal 46-116 [facility] Comment on above: Performed By: #### C MP ####[facility] [address] [place] [address]DrJulia Rowley ALT [Catalytic activity/Vol] 29 U/L Normal 14-59 [facility] Comment on above: Performed By: #### C MP ####[facility] [address] [place] [address]DrJulia Rowley Anion gap [Moles/Vol] 7.4 mmol/L Normal [facility] Comment on above: Performed By: #### C MP ####[facility] [address] [place] [address]Dr. Alyson Rowley AST [Catalytic activity/Vol] 23 U/L Normal 15-37 [facility] Comment on above: Performed By: #### C MP ####[facility] [address] [place] [address]Dr. Alyson Rowley Bilirubin [Mass/Vol] 0.4 mg/dL Normal 0.2-1.0 [facility] Comment on above: Performed By: #### C MP ####[facility] [address] [place], [place] [address]Dr. Alyson Rowley Calcium [Mass/Vol] 9.9 mg/dL Normal 8.5-10.1 [facility] Comment on above: Performed By: #### C MP ####[facility] [address] [place], [place] [address]Dr. Alyson Rowley Chloride [Moles/Vol] 98 mmol/L Normal 98-107 [facility] Comment on above: Performed By: #### C MP ####[facility] [address] [place], [place] [address]Dr. Alyson Rowley CO2 [Moles/Vol] 32.6 mmol/L Critically high 21.0-32.0 [facility] Comment on above: Performed By: #### C MP ####[facility] [address] [place], [place] [address]Dr. Alyson Amrik Creatinine [Mass/Vol] 0.62 mg/dL Normal 0.55-1.02 [facility] Comment on above: Performed By: #### C MP ####[facility] [address] [place], [place] [address]Dr. Felipoonam Amrik EGFR-AF TURKISH >60 Normal >=60 [facility] Comment on above: Performed By: #### C MP ####[facility] [address] [place], [place] [address]Dr. Alyson Rowley EGFR-NON AF TURKISH >60 Normal >=60 [facility] Comment on above: Performed By: #### C MP ####[facility] [address] [place], [place] [address]Dr. Alyson Rowley Globulin (S) [Mass/Vol] 3.1 g/dL Normal [facility] Comment on above: Performed By: #### C MP ####[facility] [id number] [place] [address]Dr. Alyson Rowley Glucose [Mass/Vol] 133 mg/dL Critically high 74-106 [facility] Comment on above: Performed By: #### C MP ####[facility] [address] [place] [id number]. Alyson Rowley Potassium [Moles/Vol] 4.0 mmol/L Normal 3.5-5.1 [facility] Comment on above: Performed By: #### C MP ####[facility] [address] [place] [address]Dr. Alyson Rowley Protein [Mass/Vol] 7.2 g/dL Normal 6.4-8.2 [facility] Comment on above: Performed By: #### C MP ####[facility] [address] [place], [place] [address]Dr. Alyson Rowley Sodium [Moles/Vol] 134 mmol/L Critically low 136-145 [facility] Comment on above: Performed By: #### C MP ####[facility] [address] [place] [address]Dr. Alyson Rowley Urea nitrogen [Mass/Vol] 12.0 mg/dL Normal 7.0-18.0 [facility] Comment on above: Performed By: #### C MP ####[facility] Ezfpqwf[address] [place] [address]Dr. Alyson Rowley Urea nitrogen/Creatinine [Mass ratio] 19.4 mg/mg Normal [facility] Comment on above: Performed By: #### C MP ####[facility] [address] [place] [id number] Rowley URINE MICROSCOPIC ONLYon BACTERIA NONE SEEN Normal NONE SEEN [facility] Comment on above: Performed By: #### H STROPN, BNP, LIPA, CMP, TSH #### [facility] [id number] Alyson Rowley Bacteria identified Cx Nom (U) NOT INDICATED Normal [facility] Comment on above: Performed By: #### H STROPN, BNP, LIPA, CMP, TSH #### [facility] [address] [place] [address] Dr. Alyson Rowley CAST NONE SEEN Normal NONE SEEN [facility] Comment on above: Performed By: #### H STROPN, BNP, LIPA, CMP, TSH #### [facility] [address] [place] [address] Dr. Alyson Rowley Crystals LM Nom (Urine sed) NONE SEEN Normal NONE SEE N [facility] Comment on above: Performed By: #### H STROPN, BNP, LIPA, CMP, TSH #### [facility] [address] [place] [address] Dr. Alyson Rowley Epithelial cells LM Ql (Urine sed) FEW Abnormal N ONE SEEN /RARE [facility] Comment on above: Performed By: #### H STROPN, BNP, LIPA, CMP, TSH #### [facility] [address] [place] [address] Dr. Alyson Rowley MUCOUS NONE SEEN Normal NONE SEEN [facility] Comment on above: Performed By: #### H STROPN, BNP, LIPA, CMP, TSH #### [facility] [address] [place] [address] Dr. Alyson Rowley RBC NONE SEEN Abnormal 0-2 [facility] Comment on above: Performed By: #### H STROPN, BNP, LIPA, CMP, TSH #### [facility] [address] [place] [address] Dr. Alyson Rowley WBC 0-2 Abnormal NONE SEEN [facility] Comment on above: Performed By: #### H STROPN, BNP, LIPA, CMP, TSH #### [facility] [address] [place] [address] Dr. Alyson Rowley CBC AUTO DIFFon 07-24-2022 BASO # 0.0 103/ul Normal 0.0-0.1 [facility] Comment on above: Performed By: #### C BC ####[facility] [address] [place] [id number]. Alyson Rowley Basophils/100 WBC (Bld) 0.3 % Normal 0.2-2.0 [facility] Comment on above: Performed By: #### C BC ####[facility] [address] [place], [place] [address]Dr. Alyson Rowley EO # 0.0 103/ul Normal 0.0-0.7 [facility] Comment on above: Performed By: #### C BC ####[facility] [address] [place], [place] [address]Dr. Alyson Rowley Eosinophils/100 WBC (Bld) 0.1 % Critically low 0.9-7. 0 [facility] Comment on above: Performed By: #### C BC ####[facility] [address] [place], [place] [address]Dr. Alyson Rowley Erythrocyte distribution wid th (RBC) [Ratio] 12.6 % Normal 11.0-15.0 [facility] Comment on above: Performed By: #### C BC ####[facility] [address] [place], [place] [address]Dr. Alyson Rowley Hematocrit (Bld) [Volume fraction] 38.4 % Normal 3 6.0-48.0 [facility] Comment on above: Performed By: #### C BC ####[facility] [address] [place], [place] [address]Dr. Alyson Rowley Hemoglobin (Bld) [Mass/Vol] 12.9 g/dL Normal 12.0-16. 0 [facility] Comment on above: Performed By: #### C BC ####[facility] [address] [place], [place] [address]Dr. Alyson Rowley IG # 0.05 10e3/ul Critically high 0.00-0.03 [facility] Comment on above: Performed By: #### C BC ####[facility] [address] [place], [place] [address]Dr. Alyson Rowley IG % 0.3 % Normal 0.0-0.5 [facility] Comment on above: Performed By: #### C BC ####[facility] [address] [place], [place] [address]Ih. Alyson Rowley LYMPH # 1.0 103/ul Critically low 1.2-3.8 [facility] Comment on above: Performed By: #### C BC ####[facility] [address] [place], [place] [address]Ct. Alyson Rowley Lymphocytes/100 WBC (Bld) 6.8 % Critically low 20.5-6 0.0 [facility] Comment on above: Performed By: #### C BC ####[facility] [address] [place] [id number]. Alyson Rowley MANUAL DIFF REQ NO Normal [facility] Comment on above: Performed By: #### C BC ####[facility] [address]ktp[address] [place] [phone]. Alyson Rowley MCH (RBC) [Entitic mass] 28.7 pg Normal 26.7-34.0 [facility] Comment on above: Performed By: #### C BC ####[facility] [address] [place] [id number]. Alyson Rowley MCHC (RBC) [Mass/Vol] 33.6 g/dL Normal 29.9-35.2 [facility] Comment on above: Performed By: #### C BC ####[facility] X[address] [place] [id number]. Alyson Rowley MCV (RBC) [Entitic vol] 85.3 fL Normal 81.0-99.0 [facility] Comment on above: Performed By: #### C BC ####[facility] [address] [place] [id number]. Alyson Rowley MONO # 0.9 103/ul Critically high 0.3-0.8 [facility] Comment on above: Performed By: #### C BC ####[facility] [address]vi[address] [place] [phone]. Alyson Rowley Monocytes/100 WBC (Bld) 5.9 % Normal 1.7-12.0 [facility] Comment on above: Performed By: #### C BC ####[facility] [address] [place], [place] [address]WoJulia Rowley NEUT # 13.2 103/ul Critically high 1.4-6.5 [facility] Comment on above: Performed By: #### C BC ####[facility] [address] [place], [place] [address]UrJulia Rowley Neutrophils/100 WBC (Bld) 86.6 % Critically high 43.0- 75.0 [facility] Comment on above: Performed By: #### C BC ####[facility] [address] [place] [phone]. Alyson Rowley Platelet mean volume (Bld) [Entitic vol] 9.0 fL Critically low 9.5-13.5 [facility] Comment on above: Performed By: #### C BC ####[facility] [address] [place] [phone] Rowley PLT 253 103/ul Normal 150-450 [facility] Comment on above: Performed By: #### C BC ####[facility] [address] [place] [phone]. Alyson Rowley RBC 4.50 106/ul Normal 4.20-5.40 [facility] Comment on above: Performed By: #### C BC ####[facility] [address]zt[address] [place] [id number]. Alyson Rowley WBC 15.3 103/ul Critically high 4.0-11.0 [facility] Comment on above: Performed By: #### C BC ####[facility] [address] [place] [phone]. Alyson Rowley PROF 14(COMP METB)on 022 Albumin [Mass/Vol] 4.1 g/dL Normal 3.4-5.0 [facility] Comment on above: Performed By: #### H STROPN, CMP #### [facility] [address] [place], [place] [address] Dr. Alyson Rowley Albumin/Globulin [Mass ratio] 1.3 {ratio} Normal [facility] Comment on above: Performed By: #### H STROPN, CMP #### [facility] [address] [address] [address] Alyson Rowley ALP [Catalytic activity/Vol] 53 U/L Normal 46-116 [facility] Comment on above: Performed By: #### H STROPN, CMP #### [facility] [address] [address] [address] Alyson Rowley ALT [Catalytic activity/Vol] 24 U/L Normal 14-59 [facility] Comment on above: Performed By: #### H STROPN, CMP #### [facility] [address] [place] [address] Dr. Alyson Rowley Anion gap [Moles/Vol] 11.4 mmol/L Normal [facility] Comment on above: Performed By: #### H STROPN, CMP #### [facility] [address] [place] [address] Dr. Alyson Rowley AST [Catalytic activity/Vol] 18 U/L Normal 15-37 [facility] Comment on above: Performed By: #### H STROPN, CMP #### [facility] [address] [place] [address] Dr. Alyson Rowley Bilirubin [Mass/Vol] 0.7 mg/dL Normal 0.2-1.0 [facility] Comment on above: Performed By: #### H STROPN, CMP #### [facility] [address] [place] [address] Dr. Alyson Rowley Calcium [Mass/Vol] 9.6 mg/dL Normal 8.5-10.1 [facility] Comment on above: Performed By: #### H STROPN, CMP #### [facility] [address] [place] [address] Dr. Alyson Rowley Chloride [Moles/Vol] 93 mmol/L Critically low 98-107 [facility] Comment on above: Performed By: #### H STROPN, CMP #### [facility] [address] [place] [address] Dr. Alyson Rowley CO2 [Moles/Vol] 28.5 mmol/L Normal 21.0-32.0 [facility] Comment on above: Performed By: #### H STROPN, CMP #### [facility] [address] [address] [address] Alyson Rowley Creatinine [Mass/Vol] 0.62 mg/dL Normal 0.55-1.02 [facility] Comment on above: Performed By: #### H STROPN, CMP #### [facility] [address] [address] [address] Alyson Rowley EGFR-AF TURKISH >60 Normal >=60 [facility] Comment on above: Performed By: #### H STROPN, CMP #### [facility] [address] [address] [address] Alyson Rowley EGFR-NON AF TURKISH >60 Normal >=60 [facility] Comment on above: Performed By: #### H STROPN, CMP #### [facility] [address] [address] [address] Alyson Rowlye Globulin (S) [Mass/Vol] 3.1 g/dL Normal [facility] Comment on above: Performed By: #### H STROPN, CMP #### [facility] [address] [address] [address] Alyson Rowley Glucose [Mass/Vol] 111 mg/dL Critically high 74-106 [facility] Comment on above: Performed By: #### H STROPN, CMP #### [facility] [address] [address] [address] Alyson Rowley Potassium [Moles/Vol] 3.9 mmol/L Normal 3.5-5.1 [facility] Comment on above: Performed By: #### H STROPN, CMP #### [facility] [address] [address] [address] Alyson Rowley Protein [Mass/Vol] 7.2 g/dL Normal 6.4-8.2 [facility] Comment on above: Performed By: #### H STROPN, CMP #### [facility] [address] [place] [address] Dr. Alyson Rowley Sodium [Moles/Vol] 129 mmol/L Critically low 136-145 [facility] Comment on above: Performed By: #### H WILFREDO, CMP #### [facility] [address] [place], [place] [address] Dr. Alyson Rowley Urea nitrogen [Mass/Vol] 13.0 mg/dL Normal 7.0-18.0 [facility] Comment on above: Performed By: #### H WILFREDO, CMP #### [facility] [address] [place], [place] [address] Dr. Alyson Rowley Urea nitrogen/Creatinine [Mass ratio] 21.0 mg/mg Normal [facility] Comment on above: Performed By: #### H WILFREDO, CMP #### [facility] [phone] Alyson Rowley TROPONIN, HIGH SENSITIVITYon 07-24-2022 HSTROP 5.5 pg/mL Normal 4.0-51.3 [facility] Comment on above: Result Comment: CUT- OFF POINTS HAVE BEEN ESTABLISHED BASED ON THE FOURTH UNIVERSAL DEFINITIONS OF MYOCARDIAL INFARCTION. THE UPPER REFERENCE LIMIT (URL) OF TROPONIN, DEFINED THE 99TH PERCENTILE OF cTnI DISTRIBUTION IN A REFERENCE POPULATION, HAS BEEN CONFIRMED THE DECISION THRESHOLD FOR [place] DIAGNOSIS. Performed By: #### H WILFREDO, CMP #### [facility] [address] [place], [place] [id number] Dr. Alyson Rowley XR CHEST 2 Von 07-24-2022 XR CHEST 2 V EXAMINATION: XR CHES T 2 V, , 07/24/2022 5:06 PM EDT INDICATION: Pain HISTORY: Ordering Provider Reason for Exam: Technologist Note: Additional: COMPARISON: Chest x-ray dated 06/13/2022. TECHNIQUE: Chest x-ray: Two views. FINDINGS: No pneumothorax, pleural effusion or focal airspace consolidation. Heart is normal in size. Partially visualized fusion device is seen projecting over the lower cervical spine. IMPRESSION: No acute cardiopulmonary process. Electronically authenticated by: GENA PEARSON Date: 2022-07-24 17:57 Normal [facility] Urine culture routineOrdered By: ALEXIA DEJESUS on 07-19-2022 Bacteria identified Cx Nom (U) 2 Days [facility] Urinalysis - AUTOMATEDon Appearance (U) clear [employer] Other Bilirubin Ql (U) Negative [facility] Other Color (U) yellow [facility] [employer] Other Glucose Ql (U) Negative [employer] Other Hemoglobin Ql (U) trace-intact [employer] Other Ketones Ql (U) trace [employer] Other Leukocyte esterase Test stri p Ql (U) small [facility] [employer] Other Nitrite Ql (U) Negative [employer] Other pH (U) 5.5 [pH] [facility] [employer] Other Protein Ql (U) Negative [employer] Other Specific gravity (U) [Rel density] 1.015 [employer] Other Urobilinogen (U) [Mass/Vol] 0.2 mg/dL [employer] Other Urinalysis - AUTOMATED No rt [employer] Other Urine culture routineOrdered By: ALEXIA DEJESUS on 07-16-2022 Bacteria identified Cx Nom (U) 2 Days [facility] Albumin [Mass/volume] in Ser um or PlasmaOrdered By: Nj Cantu on 07-14-2022 Albumin [Mass/Vol] 4.2 g/dL 3.2-5.5 [facility] Automated erythrocytes count in urine sediment (number/area)Ordered By: Gregg Rios on 07-14-2022 RBC Auto (Urine sed) [#/Area] 0-1 [HPF] 0-4 [facility] Automated leukocytes count i n urine sediment (number/area)Ordered By: Gregg Rios on 07-14-2022 WBC Auto (Urine sed) [#/Area] 3-4 [HPF] 0-4 [facility] Basophils Auto (Bld) [#/Vol] Ordered By: Jordy Berry on 07-14-2022 Basophils (Bld) [#/Vol] 0.0 10*3/uL 0.0-0.2 [facility] Basophils Auto (Bld) [#/Vol] Ordered By: Nj Cantu on 07-14-2022 Basophils (Bld) [#/Vol] 0.0 10*3/uL 0.0-0.2 [facility] Basophils Auto (Bld) [#/Vol] Ordered By: Gregg Rios on 07-14-2022 Basophils (Bld) [#/Vol] 0.0 10*3/uL 0.0-0.2 [facility] Basophils/100 WBC Auto (Bld) Ordered By: Jordy Berry on 07-14-2022 Basophils/100 WBC (Bld) 0.7 % . [facility] Basophils/100 WBC Auto (Bld) Ordered By: Nj Cantu on 07-14-2022 Basophils/100 WBC (Bld) 0.7 % . [facility] Basophils/100 WBC Auto (Bld) Ordered By: Gregg Rios on 07-14-2022 Basophils/100 WBC (Bld) 0.4 % . [facility] Bilirubin Test strip Ql (U)O rdered By: Gregg Rios on 07-14-2022 Bilirubin Ql (U) Negative Negative [facility] Blood hemoglobin measurement (mass/volume)Ordered By: Jordy Berry on 07-14-2022 Hemoglobin (Bld) [Mass/Vol] 12.7 g/dL 11.8-15. 4 [facility] Blood hemoglobin measurement (mass/volume)Ordered By: Nj Cantu on 07-14-2022 Hemoglobin (Bld) [Mass/Vol] 13.6 g/dL 11.8-15. 4 [facility] Blood hemoglobin measurement (mass/volume)Ordered By: Gregg Rios on 07-14-2022 Hemoglobin (Bld) [Mass/Vol] 12.7 g/dL 11.8-15. 4 [facility] Blood leukocytes automated c ount (number/volume)Ordered By: Jordy Berry on 07-14-2022 WBC (Bld) [#/Vol] 6.8 10*3/uL 4.5-11.0 [facility] Blood leukocytes automated c ount (number/volume)Ordered By: Nj Cantu on 07-14-2022 WBC (Bld) [#/Vol] 6.3 10*3/uL 4.5-11.0 [facility] Blood leukocytes automated c ount (number/volume)Ordered By: Gregg Rios on 07-14-2022 WBC (Bld) [#/Vol] 5.2 10*3/uL 4.5-11.0 [facility] Body fluid albumin measureme nt (mass/volume)Ordered By: Gregg Rios on 07-14-2022 Albumin (Body fld) [Mass/Vol] 4.1 g/dL 3.2-5. 5 [facility] COVID-19 Positive/NegativeOr dered By: Gregg Rios on 07-14-2022 SARS-CoV-2 (COVID-19) N gene BENTON+probe Ql (Resp) Negative Negative [facility] Comment on above: Testing for SARS-CoV -2 by RT-PCRThis test was developed and its performance characteristics determined by [employer] ([employer] and validated at the [facility]. This test has not been FDA cleared or approved. This test has been authorized by FDA under an Emergency Use Authorization (EUA). This test has been validated in accordance with the FDA's Guidance Document (Policy for Diagnostics Testing in Laboratories Certified to Perform High Complexity Testing under CLIA prior to Emergency Use Authorization for Coronavirus Disease-2019 during the Public Health Emergency) issued on January 14, 2020. This test is only authorized for the duration of time the declaration that circumstances exist justifying the authorization of the emergency use of in vitro diagnostic tests for detection of SARS-CoV-2 virus and/or diagnosis of COVID-19 infection under section 564(b)(1) of the Act, 21 U.S.C. 360bbb-3(b)(1), unless the authorization is terminated or revoked sooner. COVID-19 SOFIAOrdered By: Shalini Rios on 07-14-2022 SARS-CoV+SARS-CoV-2 (COVID-1 9) Ag IA.rapid Ql (Resp) Negative Negative [facility] Comment on above: This is a duplicate Sandy SARS Antigen (JUAN) result to be used for statistical tracking purpose only. Color Auto (U)Ordered By: Shalini Rios on 07-14-2022 Color (U) Yellow Yellow [facility] Creatinine and Glomerular fi ltration rate.predicted panel (S/P/Bld)Ordered By: Joryd Berry on 07-14-2022 Creatinine [Mass/Vol] 0.73 mg/dL 0.44-1.03 [facility] Creatinine and Glomerular fi ltration rate.predicted panel (S/P/Bld)Ordered By: Nj Cantu on 07-14-2022 Creatinine [Mass/Vol] 0.51 mg/dL 0.44-1.03 [facility] Creatinine and Glomerular fi ltration rate.predicted panel (S/P/Bld)Ordered By: Gregg Rios on 07-14-2022 Creatinine [Mass/Vol] 0.56 mg/dL 0.44-1.03 [facility] Eosinophils Auto (Bld) [#/Vo l]Ordered By: Jordy Berry on 07-14-2022 Eosinophils (Bld) [#/Vol] 0.1 10*3/uL 0.0-0.45 [facility] Eosinophils Auto (Bld) [#/Vo l]Ordered By: Nj Cantu on 07-14-2022 Eosinophils (Bld) [#/Vol] 0.1 10*3/uL 0.0-0.45 [facility] Eosinophils Auto (Bld) [#/Vo l]Ordered By: Gregg Rios on 07-14-2022 Eosinophils (Bld) [#/Vol] 0.1 10*3/uL 0.0-0.45 [facility] Eosinophils/100 WBC Auto (Bl d)Ordered By: Jordy Berry on 07-14-2022 Eosinophils/100 WBC (Bld) 1.6 % . [facility] Eosinophils/100 WBC Auto (Bl d)Ordered By: Nj Cantu on 07-14-2022 Eosinophils/100 WBC (Bld) 1.7 % . [facility] Eosinophils/100 WBC Auto (Bl d)Ordered By: Gregg Rios on 07-14-2022 Eosinophils/100 WBC (Bld) 1.7 % . [facility] Erythrocyte distribution wid th Auto (RBC) [Ratio]Ordered By: Jordy Berry on 07-14-2022 Erythrocyte distribution wid th (RBC) [Ratio] 13.5 % 11.9-15.3 [facility] Erythrocyte distribution wid th Auto (RBC) [Ratio]Ordered By: Nj Cantu on 07-14-2022 Erythrocyte distribution wid th (RBC) [Ratio] 13.5 % 11.9-15.3 [facility] Erythrocyte distribution wid th Auto (RBC) [Ratio]Ordered By: Gregg Rios on 07-14-2022 Erythrocyte distribution wid th (RBC) [Ratio] 13.4 % 11.9-15.3 [facility] Estimated glomerular filtrat ion rate (GFR) non- AmericanOrdered By: Jordy Berry on 07-14-2022 GFR/1.73 sq M.predicted di g non-blacks MDRD (S/P/Bld) [Vol rate/Area] > 60 mL/Min [facility] Estimated glomerular filtrat ion rate (GFR) non- AmericanOrdered By: jN Cantu on 07-14-2022 GFR/1.73 sq M.predicted di g non-blacks MDRD (S/P/Bld) [Vol rate/Area] > 60 mL/Min [facility] Estimated glomerular filtrat ion rate (GFR) non- AmericanOrdered By: Gregg Rios on 07-14-2022 GFR/1.73 sq M.predicted di g non-blacks MDRD (S/P/Bld) [Vol rate/Area] > 60 mL/Min [facility] Globulin Calc (S) [Mass/Vol] Ordered By: Nj Cantu on 07-14-2022 Globulin (S) [Mass/Vol] 2.7 g/dL [facility] Globulin Calc (S) [Mass/Vol] Ordered By: Gregg Rios on 07-14-2022 Globulin (S) [Mass/Vol] 2.6 g/dL [facility] Glucose Glucometer (BldC) [M ass/Vol]Ordered By: Sarah Quevedo on 07-14-2022 Glucose [Mass/Vol] 98 mg/dL [facility] Comment on above: Random Glucose Refer ence Range is dependent on time and content of last meal. Glucose of more than 200 mg/dL in a nonstressed, ambulatory subject supports the diagnosis of Diabetes Mellitus. Hematocrit Auto (Bld) [Volum e fraction]Ordered By: Jordy Beryr on 07-14-2022 Hematocrit (Bld) [Volume fraction] 37.3 % 3 4.0-46.4 [facility] Hematocrit Auto (Bld) [Volum e fraction]Ordered By: Nj Cantu on 07-14-2022 Hematocrit (Bld) [Volume fraction] 39.9 % 3 4.0-46.4 [facility] Hematocrit Auto (Bld) [Volum e fraction]Ordered By: Gregg Rios on 07-14-2022 Hematocrit (Bld) [Volume fraction] 37.1 % 3 4.0-46.4 [facility] Ketones Auto test strip (U) [Mass/Vol]Ordered By: Gregg Rios on 07-14-2022 Ketones (U) [Mass/Vol] Negative Negative [facility] - Chemistry and C hemistry - challengeOrdered By: Nj Cantu on 07-14-2022 Magnesium [Mass/Vol] 2.0 mg/dL 1.6-2.6 [facility] - Hematology and Cell countsOrdered By: Jordy Berry on 07-14-2022 Nucleated RBC/100 WBC (Bld) [Ratio] 0.0 % 0-0.5 [facility] - Hematology and Cell countsOrdered By: Nj Cantu on 07-14-2022 Nucleated RBC/100 WBC (Bld) [Ratio] 0.1 % 0-0.5 [facility] - Hematology and Cell countsOrdered By: Gregg Rios on 07-14-2022 Nucleated RBC/100 WBC (Bld) [Ratio] 0.1 % 0-0.5 [facility] - UrinalysisOrder ed By: Gregg Rios on 07-14-2022 Hyaline casts LM Ql (Urine sed) None seen [LPF] 0-8 [facility] Lymphocytes Auto (Bld) [#/Vo l]Ordered By: Jordy Berry on 07-14-2022 Lymphocytes (Bld) [#/Vol] 1.3 10*3/uL 1.00-4.8 [facility] Lymphocytes Auto (Bld) [#/Vo l]Ordered By: Nj Cantu on 07-14-2022 Lymphocytes (Bld) [#/Vol] 1.9 10*3/uL 1.00-4.8 [facility] Lymphocytes Auto (Bld) [#/Vo l]Ordered By: Gregg Rios on 07-14-2022 Lymphocytes (Bld) [#/Vol] 1.4 10*3/uL 1.00-4.8 [facility] Lymphocytes/100 WBC Auto (Bl d)Ordered By: Jordy Berry on 07-14-2022 Lymphocytes/100 WBC (Bld) 19.0 % . [facility] Lymphocytes/100 WBC Auto (Bl d)Ordered By: Nj Cantu on 07-14-2022 Lymphocytes/100 WBC (Bld) 30.9 % . [facility] Lymphocytes/100 WBC Auto (Bl d)Ordered By: Gregg Rios on 07-14-2022 Lymphocytes/100 WBC (Bld) 26.6 % . [facility] MCH Auto (RBC) [Entitic mass ]Ordered By: Jordy Berry on 07-14-2022 MCH (RBC) [Entitic mass] 28.2 pg 24.7-34.3 [facility] MCH Auto (RBC) [Entitic mass ]Ordered By: Nj Cantu on 07-14-2022 MCH (RBC) [Entitic mass] 28.3 pg 24.7-34.3 [facility] MCH Auto (RBC) [Entitic mass ]Ordered By: Gregg Rios on 07-14-2022 MCH (RBC) [Entitic mass] 28.2 pg 24.7-34.3 [facility] MCHC Auto (RBC) [Mass/Vol]Or dered By: Jordy Berry on 07-14-2022 MCHC (RBC) [Mass/Vol] 34.1 g/dL 32.0-35.0 [facility] MCHC Auto (RBC) [Mass/Vol]Or dered By: Nj Cantu on 07-14-2022 MCHC (RBC) [Mass/Vol] 34.0 g/dL 32.0-35.0 [facility] MCHC Auto (RBC) [Mass/Vol]Or dered By: Gregg Rios on 07-14-2022 MCHC (RBC) [Mass/Vol] 34.2 g/dL 32.0-35.0 [facility] MCV Auto (RBC) [Entitic vol] Ordered By: Jordy Berry on 07-14-2022 MCV (RBC) [Entitic vol] 82.9 fL 80-100 [facility] MCV Auto (RBC) [Entitic vol] Ordered By: Nj Cantu on 07-14-2022 MCV (RBC) [Entitic vol] 83.2 fL 80-100 [facility] MCV Auto (RBC) [Entitic vol] Ordered By: Gregg Rios on 07-14-2022 MCV (RBC) [Entitic vol] 82.2 fL 80-100 [facility] Monocytes Auto (Bld) [#/Vol] Ordered By: Jordy Berry on 07-14-2022 Monocytes (Bld) [#/Vol] 0.7 10*3/uL 0.0-0.8 [facility] Monocytes Auto (Bld) [#/Vol] Ordered By: Nj Cantu on 07-14-2022 Monocytes (Bld) [#/Vol] 0.6 10*3/uL 0.0-0.8 [facility] Monocytes Auto (Bld) [#/Vol] Ordered By: Gregg Rios on 07-14-2022 Monocytes (Bld) [#/Vol] 0.5 10*3/uL 0.0-0.8 [facility] Monocytes/100 WBC Auto (Bld) Ordered By: Jordy Berry on 07-14-2022 Monocytes/100 WBC (Bld) 9.8 % . [facility] Monocytes/100 WBC Auto (Bld) Ordered By: Nj Cantu on 07-14-2022 Monocytes/100 WBC (Bld) 10.3 % . [facility] Monocytes/100 WBC Auto (Bld) Ordered By: Gregg Rios on 07-14-2022 Monocytes/100 WBC (Bld) 10.0 % . [facility] Neutrophils Auto (Bld) [#/Vo l]Ordered By: Jordy Berry on 07-14-2022 Neutrophils (Bld) [#/Vol] 4.7 10*3/uL 1.8-7.7 [facility] Neutrophils Auto (Bld) [#/Vo l]Ordered By: Nj Cantu on 07-14-2022 Neutrophils (Bld) [#/Vol] 3.5 10*3/uL 1.8-7.7 [facility] Neutrophils Auto (Bld) [#/Vo l]Ordered By: Gregg Rios on 07-14-2022 Neutrophils (Bld) [#/Vol] 3.2 10*3/uL 1.8-7.7 [facility] Neutrophils/100 WBC Auto (Bl d)Ordered By: Jordy Berry on 07-14-2022 Neutrophils/100 WBC (Bld) 68.9 % . [facility] Neutrophils/100 WBC Auto (Bl d)Ordered By: Nj Cantu on 07-14-2022 Neutrophils/100 WBC (Bld) 56.4 % . [facility] Neutrophils/100 WBC Auto (Bl d)Ordered By: Gregg Rois on 07-14-2022 Neutrophils/100 WBC (Bld) 61.3 % . [facility] Nitrite Test strip Ql (U)Ord ered By: Gregg Rios on 07-14-2022 Nitrite Ql (U) Negative Negative [facility] No Panel InformationOrdered By: Jordy Berry on 07-14-2022 Estimated GFR () > 60 mL/Min [facility] Comment on above: GFR estimated refere nce range: According to KDOQI guidelines, <60 ml/min/1.73m2 is sufficient to diagnose a patient with chronic kidney disease. Pharmacy Creatinine Clearance (Chem 40.28 [facility] No Panel InformationOrdered By: Nj Cantu on 07-14-2022 Estimated GFR () > 60 mL/Min [facility] Comment on above: GFR estimated refere nce range: According to KDOQI guidelines, <60 ml/min/1.73m2 is sufficient to diagnose a patient with chronic kidney disease. Pharmacy Creatinine Clearance (Chem 39.79 [facility] No Panel InformationOrdered By: Gregg Rios on 07-14-2022 SARS Antigen (LFIA) [facility] Estimated GFR () > 60 mL/Min [facility] Comment on above: GFR estimated refere nce range: According to KDOQI guidelines, <60 ml/min/1.73m2 is sufficient to diagnose a patient with chronic kidney disease. Pharmacy Creatinine Clearance (Chem 40.68 [facility] SARS Antigen (LFIA) [facility] Osmolality measurementOrdere d By: Nj Cantu on 07-14-2022 Osmolality (Unsp spec) [Osmolality] 280 mosm 278-305 [facility] Platelet mean volume Auto (B ld) [Entitic vol]Ordered By: Jordy Berry on 07-14-2022 Platelet mean volume (Bld) [Entitic vol] 7.7 fL 6.3-10.7 [facility] Platelet mean volume Auto (B ld) [Entitic vol]Ordered By: Nj Cantu on 07-14-2022 Platelet mean volume (Bld) [Entitic vol] 7.7 fL 6.3-10.7 [facility] Platelet mean volume Auto (B ld) [Entitic vol]Ordered By: Gregg Rios on 07-14-2022 Platelet mean volume (Bld) [Entitic vol] 7.7 fL 6.3-10.7 [facility] Platelets Auto (Bld) [#/Vol] Ordered By: Jordy Berry on 07-14-2022 Platelets (Bld) [#/Vol] 216 10*3/uL 150-450 [facility] Platelets Auto (Bld) [#/Vol] Ordered By: Nj Cantu on 07-14-2022 Platelets (Bld) [#/Vol] 222 10*3/uL 150-450 [facility] Platelets Auto (Bld) [#/Vol] Ordered By: Gregg Rios on 07-14-2022 Platelets (Bld) [#/Vol] 207 10*3/uL 150-450 [facility] Protein Auto test strip (U) [Mass/Vol]Ordered By: Gregg Rios on 07-14-2022 Protein (U) [Mass/Vol] Negative Negative [facility] Protein [Mass/volume] in Ser um or PlasmaOrdered By: Nj Cantu on 07-14-2022 Protein [Mass/Vol] 6.9 g/dL 6.1-7.9 [facility] Protein [Mass/volume] in Ser um or PlasmaOrdered By: Gregg Rios on 07-14-2022 Protein [Mass/Vol] 6.7 g/dL 6.1-7.9 [facility] RBC Auto (Bld) [#/Vol]Ordere d By: Jordy Berry on 07-14-2022 RBC (Bld) [#/Vol] 4.50 10*6/uL 3.60-5.00 [facility] RBC Auto (Bld) [#/Vol]Ordere d By: Nj Cantu on 07-14-2022 RBC (Bld) [#/Vol] 4.80 10*6/uL 3.60-5.00 [facility] RBC Auto (Bld) [#/Vol]Ordere d By: Gregg Rios on 07-14-2022 RBC (Bld) [#/Vol] 4.52 10*6/uL 3.60-5.00 [facility] Serum or plasma alanine gorman otransferase measurement without P-5'-P (enzymatic activiOrdered By: Nj Cantu on 07-14-2022 ALT No additional P-5'-P [Ca talytic activity/Vol] 23 U/L [facility] Serum or plasma alanine gorman otransferase measurement without P-5'-P (enzymatic activiOrdered By: Gregg Rios on 07-14-2022 ALT No additional P-5'-P [Ca talytic activity/Vol] 21 U/L [facility] Serum or plasma albumin/glob ulin mass ratioOrdered By: Nj Cantu on 07-14-2022 Albumin/Globulin [Mass ratio] 1.6 {ratio} [facility] Serum or plasma albumin/glob ulin mass ratioOrdered By: Gregg Rios on 07-14-2022 Albumin/Globulin [Mass ratio] 1.6 {ratio} [facility] Serum or plasma alkaline sarita sphatase measurement (enzymatic activity/volume)Ordered By: Nj Cantu on 07-14-2022 ALP [Catalytic activity/Vol] 51 U/L [facility] Serum or plasma alkaline sarita sphatase measurement (enzymatic activity/volume)Ordered By: Gregg Rios on 07-14-2022 ALP [Catalytic activity/Vol] 50 U/L [facility] Serum or plasma anion gap de terminationOrdered By: Jordy Berry on 07-14-2022 Anion gap [Moles/Vol] 14.8 mmol/L 6.0-15.0 [facility] Serum or plasma anion gap de terminationOrdered By: Nj Cantu on 07-14-2022 Anion gap [Moles/Vol] 14.2 mmol/L 6.0-15.0 [facility] Serum or plasma anion gap de terminationOrdered By: Gregg Rios on 07-14-2022 Anion gap [Moles/Vol] 14.4 mmol/L 6.0-15.0 [facility] Serum or plasma aspartate am inotransferase measurement (enzymatic activity/volume)Ordered By: Nj Cantu on 07-14-2022 AST [Catalytic activity/Vol] 26 U/L [facility] Serum or plasma aspartate am inotransferase measurement (enzymatic activity/volume)Ordered By: Gregg Rios on 07-14-2022 AST [Catalytic activity/Vol] 27 U/L [facility] Serum or plasma calcium luna urement (mass/volume)Ordered By: Jordy Berry on 07-14-2022 Calcium [Mass/Vol] 9.9 mg/dL 8.2-10.2 [facility] Serum or plasma calcium luna urement (mass/volume)Ordered By: Nj Cantu on 07-14-2022 Calcium [Mass/Vol] 9.8 mg/dL 8.2-10.2 [facility] Serum or plasma calcium luna urement (mass/volume)Ordered By: Gregg Rios on 07-14-2022 Calcium [Mass/Vol] 10.3 mg/dL 8.2-10.2 [facility] Serum or plasma chloride haider surement (moles/volume)Ordered By: Jordy Berry on 07-14-2022 Chloride [Moles/Vol] 95 mmol/L 95-114 [facility] Serum or plasma chloride haider surement (moles/volume)Ordered By: Nj Cantu on 07-14-2022 Chloride [Moles/Vol] 94 mmol/L 95-114 [facility] Serum or plasma chloride haider surement (moles/volume)Ordered By: Gregg Rios on 07-14-2022 Chloride [Moles/Vol] 84 mmol/L 95-114 [facility] Serum or plasma glucose luna urement (mass/volume)Ordered By: Jordy Berry on 07-14-2022 Glucose [Mass/Vol] 181 mg/dL 70-100 [facility] Comment on above: ADA recommended refe rence rangeRandom Glucose Reference Range is dependent on time and content of last meal. Glucose of more than 200 mg/dL in a nonstressed, ambulatory subject supports the diagnosis of Diabetes Mellitus. Serum or plasma glucose luna urement (mass/volume)Ordered By: Nj Cantu on 07-14-2022 Glucose [Mass/Vol] 97 mg/dL 70-100 [facility] Comment on above: ADA recommended refe rence rangeRandom Glucose Reference Range is dependent on time and content of last meal. Glucose of more than 200 mg/dL in a nonstressed, ambulatory subject supports the diagnosis of Diabetes Mellitus. Serum or plasma glucose luna urement (mass/volume)Ordered By: Gregg Rios on 07-14-2022 Glucose [Mass/Vol] 105 mg/dL 70-100 [facility] Comment on above: ADA recommended refe rence rangeRandom Glucose Reference Range is dependent on time and content of last meal. Glucose of more than 200 mg/dL in a nonstressed, ambulatory subject supports the diagnosis of Diabetes Mellitus. Serum or plasma potassium me asurement (moles/volume)Ordered By: Jordy Berry on 07-14-2022 Potassium [Moles/Vol] 4.3 mmol/L 3.5-5.1 [facility] Serum or plasma potassium me asurement (moles/volume)Ordered By: Nj Cantu on 07-14-2022 Potassium [Moles/Vol] 4.0 mmol/L 3.5-5.1 [facility] Serum or plasma potassium me asurement (moles/volume)Ordered By: Gregg Rios on 07-14-2022 Potassium [Moles/Vol] 3.4 mmol/L 3.5-5.1 [facility] Serum or plasma sodium measu rement (moles/volume)Ordered By: Jordy Berry on 07-14-2022 Sodium [Moles/Vol] 131 mmol/L 136-146 [facility] Serum or plasma sodium measu rement (moles/volume)Ordered By: Nj Cantu on 07-14-2022 Sodium [Moles/Vol] 131 mmol/L 136-146 [facility] Serum or plasma sodium measu rement (moles/volume)Ordered By: Gregg Rios on 07-14-2022 Sodium [Moles/Vol] 126 mmol/L 136-146 [facility] Serum or plasma total biliru bin measurement (mass/volume)Ordered By: Nj Cantu on 07-14-2022 Bilirubin [Mass/Vol] 0.7 mg/dL 0.3-1.2 [facility] Serum or plasma total biliru bin measurement (mass/volume)Ordered By: Gregg Rios on 07-14-2022 Bilirubin [Mass/Vol] 0.6 mg/dL 0.3-1.2 [facility] Serum or plasma total carbon dioxide measurement (moles/volume)Ordered By: Jordy Berry on 07-14-2022 CO2 [Moles/Vol] 25.5 mmol/L 22.0-30.0 [facility] Serum or plasma total carbon dioxide measurement (moles/volume)Ordered By: Nj Cantu on 07-14-2022 CO2 [Moles/Vol] 26.8 mmol/L 22.0-30.0 [facility] Serum or plasma total carbon dioxide measurement (moles/volume)Ordered By: Gregg Rios on 07-14-2022 CO2 [Moles/Vol] 31.0 mmol/L 22.0-30.0 [facility] Serum or plasma urea nitroge n measurement (mass/volume)Ordered By: Jordy Berry on 07-14-2022 Urea nitrogen [Mass/Vol] 13 mg/dL 07-06 [facility] Serum or plasma urea nitroge n measurement (mass/volume)Ordered By: Nj Cantu on 07-14-2022 Urea nitrogen [Mass/Vol] 5 mg/dL 07-06 [facility] Serum or plasma urea nitroge n measurement (mass/volume)Ordered By: Gregg Rios on 07-14-2022 Urea nitrogen [Mass/Vol] 8 mg/dL 07-06 [facility] Specific gravity Auto test s trip (U) [Rel density]Ordered By: Gregg Rios on 07-14-2022 Specific gravity (U) [Rel density] 1.004 1.001-1.030 [facility] Squamous epithelial cells de tection in urine sediment by light microscopyOrdered By: Gregg Rios on 07-14-2022 Epithelial cells.squamous LM Ql (Urine sed) 0-1 [HPF] 0-2 [facility] TSH DL <= 0.005 mIU/L QnOrde red By: Nj Cantu on 07-14-2022 TSH Qn 1.75 m[IU]/L 0.45-5.33 [facility] Thyroxine (T4) free [Mass/vo lume] in Serum or PlasmaOrdered By: Nj Cantu on 07-14-2022 Free T4 [Mass/Vol] 1.00 ng/dL 0.61-1.12 [facility] Urine bacteria detection by automated methodOrdered By: Gregg Rios on 07-14-2022 Bacteria Auto Ql (U) None seen None Seen [facility] Urine clarity by refractomet ry automatedOrdered By: Gregg Rios on 07-14-2022 Clarity Refractometry automated (U) Clear Clear [facility] Urine glucose measurement by automated test strip (mass/volume)Ordered By: Gregg Rios on 07-14-2022 Glucose Auto test strip (U) [Mass/Vol] Normal mg/dL Normal [facility] Urine hemoglobin detection b y automated test stripOrdered By: Gregg Rios on 07-14-2022 Hemoglobin Auto test strip Ql (U) Negative Ne gative [facility] Urine leukocyte esterase det ection by automated test stripOrdered By: Gregg Rios on 07-14-2022 Leukocyte esterase Auto test strip Ql (U) 2+ Negative [facility] Urine sodium measurement (mo les/volume)Ordered By: Nj Cantu on 07-14-2022 Sodium (U) [Moles/Vol] 19 mmol/L [facility] Comment on above: No reference range e stablished Urobilinogen Auto test strip (U) [Mass/Vol]Ordered By: Gregg Rios on 07-14-2022 Urobilinogen (U) [Mass/Vol] Normal mg/dL Normal [facility] pH Auto test strip (U)Ordere d By: Gregg Rios on 07-14-2022 pH (U) 7.0 [pH] 5.0-9.0 [facility] FERRITINon 07-09-2022 Ferritin [Mass/Vol] 87.0 ng/mL Normal 8.0-252.0 [facility] Comment on above: Performed By: #### F ETIBC, FERR ####[facility] [id number] [place], [place] [address]RlDr. Alyson Rowley GLYCOHEMOGLOBIN A1Con 2021 ADA RECOMMENDATION SEE BELOW Normal [facility] Comment on above: Result Comment: ADA RECOMMENDED LIMIT 4.0 - 6.0 ADA THERAPEUTIC TARGET < 7.0 ACTION SUGGESTED > 7.0 Performed By: #### H STROPN, BNP, LIPA, CMP, TSH #### [facility] [address] [place], [place] [address] Dr. Alyson Rowley Glucose [Mass/Vol] 123 mg/dL Normal [facility] Comment on above: Performed By: #### H STROPN, BNP, LIPA, CMP, TSH #### [facility] [address] [place] [address] [address] Alyson Rowley HbA1c (Bld) [Mass fraction] 5.9 % Normal 4.5-6.2 [facility] Comment on above: Performed By: #### H STROPN, BNP, LIPA, CMP, TSH #### [facility] [address] [place] [address] [address] Alyson Rowley IRON AND TIBCon 07-09-2022 % SATURATION 12.7 % Normal [facility] Comment on above: Performed By: #### F ETIBC, FERR ####[facility] [id number] [place] [address]Dr. Alyson Rowley Iron [Mass/Vol] 49.0 ug/dL Critically low 50.0-170.0 [facility] Comment on above: Performed By: #### F ETIBC, FERR ####[facility] [id number] [place] [address]DrJulia Rowley TIBC DIRECT 387.0 ug/dL Normal 250.0-450.0 [facility] Comment on above: Performed By: #### F ETIBC, FERR ####[facility] [id number] [place] [address]Dr. Alyson Rowley MAGNESIUMon 07-09-2022 Magnesium [Mass/Vol] 1.9 mg/dL Normal 1.8-2.4 [facility] Comment on above: Performed By: #### H STROPN, BNP, LIPA, CMP, TSH #### [facility] [address] [place] [address] [address] Alyson Rowley TSHon 07-09-2022 TSH 1.205 uIU/mL Normal 0.358-3.740 [facility] Comment on above: Performed By: #### H STROPN, BNP, LIPA, CMP, TSH #### [facility] [address] [place] [address] [address] Alyson Rowley [facility] CARDIAC STRESS/REST INJE CTIONon 06-29-2022 [facility] CARDIAC STRESS/REST INJECTION Patient Name: MARITZA VICENTE STUDY: MYOCARDIAL PERFUSION STRESS TEST WITH LEXISCAN Performing facility: [facility], [address], [address], [place] [address] [facility] Provider: Avelino Berry RN, DIRECTOR OF QUANTITATIVE RESEARCH PCP: Dr. Srinivas Vick Supervising provider: Rell Goodrich MD INDICATION: Chest Pain; HISTORY: Gender: F; Age: 82 y/o ; Height: 0 cm; Weight: 0 kg. High Cholesterol; Diabetes; HTN; Chest Pain; Dizziness Denies smoking. COMPARISON: Previous nuclear testing completed at [place]. ACCESSION NUMBER(S): [id number]; [id number]; [id number] ORDERING CLINICIAN: AVELINO BERRY TECHNIQUE: ONE DAY protocol. Stress injection: Date:06-29-22, 36.0 mCi of Myoview IV 20 seconds after rapid injection of Lexiscan. Rest injection: Date: 06-29-22, 11.1 mCi of Myoview IV at rest. The patient had a rapid injection of 0.4 mg of Lexiscan IV over 10 seconds. Imaging was performed by gated tomographic technique. Reason for Lexiscan: dizziness/unsteady/fall risk STRESS TEST DATA: Resting heart rate was 56 BPM. Resting blood pressure was 128/60 mmHg. Peak blood pressure was 140/58 mmHg. Peak heart rate was 104 BPM. TEST TERMINATED DUE TO: Protocol completed FINDINGS: STRESS TEST RESULTS: Resting electrocardiogram revealed normal sinus rhythm. There were no significant ischemic ECG changes or dysrhythmias. The patient did not have chest pains/symptoms during procedure. There was a normal recovery phase. IMAGING RESULTS: Image quality was good. Rest and stress tomographic images were reviewed and revealed normal perfusion without evidence of ischemia, myocardial infarction, or left ventricular dilatation with stress. Overall left ventricular systolic function appeared to be normal without regional wall motion abnormalities. Ejection fraction was 84%. TID is 1.08 and is normal. There were no evidence of attenuation artifact. IMPRESSION: Normal Lexiscan Myoview cardiac perfusion stress test. No evidence of ischemia or myocardial infarction by perfusion imaging. Normal left ventricular systolic function, ejection fraction 84%. No previous study available for comparison. Electronically signed by: RELL GOODRICH MD Normal [facility] No Panel Informationon 06-29 Normal -[facility] DO Work Phone: Basophils Auto (Bld) [#/Vol] Ordered By: Natalia Fontana on 06-20-2022 Basophils (Bld) [#/Vol] 0.0 10*3/uL 0.0-0.2 [facility] Basophils/100 WBC Auto (Bld) Ordered By: Natalia Fontana on 06-20-2022 Basophils/100 WBC (Bld) 0.7 % . [facility] Bilirubin Test strip Ql (U)O rdered By: Natalia Fontana on 06-20-2022 Bilirubin Ql (U) Negative Negative [facility] Blood hemoglobin measurement (mass/volume)Ordered By: Natalia Fontana on 06-20-2022 Hemoglobin (Bld) [Mass/Vol] 13.3 g/dL 11.8-15. 4 [facility] Blood leukocytes automated c ount (number/volume)Ordered By: Natalia Fontana on 06-20-2022 WBC (Bld) [#/Vol] 6.0 10*3/uL 4.5-11.0 [facility] Color Auto (U)Ordered By: Haja Fontana on 06-20-2022 Color (U) Yellow Yellow [facility] Creatinine and Glomerular fi ltration rate.predicted panel (S/P/Bld)Ordered By: Natalia Fontana on 06-20-2022 Creatinine [Mass/Vol] 0.74 mg/dL 0.44-1.03 [facility] Eosinophils Auto (Bld) [#/Vo l]Ordered By: Natalia Fontana on 06-20-2022 Eosinophils (Bld) [#/Vol] 0.2 10*3/uL 0.0-0.45 [facility] Eosinophils/100 WBC Auto (Bl d)Ordered By: Natalia Fontana on 06-20-2022 Eosinophils/100 WBC (Bld) 3.0 % . [facility] Erythrocyte distribution wid th Auto (RBC) [Ratio]Ordered By: Natalia Fontana on 06-20-2022 Erythrocyte distribution wid th (RBC) [Ratio] 13.7 % 11.9-15.3 [facility] Estimated glomerular filtrat ion rate (GFR) non- AmericanOrdered By: Natalia Fontana on 06-20-2022 GFR/1.73 sq M.predicted di g non-blacks MDRD (S/P/Bld) [Vol rate/Area] > 60 mL/Min [facility] Hematocrit Auto (Bld) [Volum e fraction]Ordered By: Natalia Fontana on 06-20-2022 Hematocrit (Bld) [Volume fraction] 39.3 % 3 4.0-46.4 [facility] Ketones Auto test strip (U) [Mass/Vol]Ordered By: Natalia Fontana on 06-20-2022 Ketones (U) [Mass/Vol] Negative Negative [facility] - Chemistry and C hemistry - challengeOrdered By: Natalia Fontana on 06-20-2022 Magnesium [Mass/Vol] 2.0 mg/dL 1.6-2.6 [facility] - Hematology and Cell countsOrdered By: Natalia Fontana on 06-20-2022 Nucleated RBC/100 WBC (Bld) [Ratio] 0.0 % 0-0.5 [facility] Lymphocytes Auto (Bld) [#/Vo l]Ordered By: Natalia Fontana on 06-20-2022 Lymphocytes (Bld) [#/Vol] 1.7 10*3/uL 1.00-4.8 [facility] Lymphocytes/100 WBC Auto (Bl d)Ordered By: Natalia Fontana on 06-20-2022 Lymphocytes/100 WBC (Bld) 28.7 % . [facility] MCH Auto (RBC) [Entitic mass ]Ordered By: Natalia Fontana on 06-20-2022 MCH (RBC) [Entitic mass] 28.5 pg 24.7-34.3 [facility] MCHC Auto (RBC) [Mass/Vol]Or dered By: Natalia Fontana on 06-20-2022 MCHC (RBC) [Mass/Vol] 33.8 g/dL 32.0-35.0 [facility] MCV Auto (RBC) [Entitic vol] Ordered By: Natalia Fontana on 06-20-2022 MCV (RBC) [Entitic vol] 84.5 fL 80-100 [facility] Monocytes Auto (Bld) [#/Vol] Ordered By: Natalia Fontana on 06-20-2022 Monocytes (Bld) [#/Vol] 0.4 10*3/uL 0.0-0.8 [facility] Monocytes/100 WBC Auto (Bld) Ordered By: Natalia Fontana on 06-20-2022 Monocytes/100 WBC (Bld) 7.4 % . [facility] Neutrophils Auto (Bld) [#/Vo l]Ordered By: Natalia Fontnaa on 06-20-2022 Neutrophils (Bld) [#/Vol] 3.6 10*3/uL 1.8-7.7 [facility] Neutrophils/100 WBC Auto (Bl d)Ordered By: Natalia Fontana on 06-20-2022 Neutrophils/100 WBC (Bld) 60.2 % . [facility] Nitrite Test strip Ql (U)Ord ered By: Natalia Fontana on 06-20-2022 Nitrite Ql (U) Negative Negative [facility] No Panel InformationOrdered By: Natalia Fontana on 06-20-2022 Estimated GFR () > 60 mL/Min [facility] Comment on above: GFR estimated refere nce range: According to KDOQI guidelines, <60 ml/min/1.73m2 is sufficient to diagnose a patient with chronic kidney disease. Pharmacy Creatinine Clearance (Chem 42.31 [facility] Platelet mean volume Auto (B ld) [Entitic vol]Ordered By: Natalia Fontana on 06-20-2022 Platelet mean volume (Bld) [Entitic vol] 7.9 fL 6.3-10.7 [facility] Platelets Auto (Bld) [#/Vol] Ordered By: Natalia Fontana on 06-20-2022 Platelets (Bld) [#/Vol] 198 10*3/uL 150-450 [facility] Protein Auto test strip (U) [Mass/Vol]Ordered By: Natalia Fontana on 06-20-2022 Protein (U) [Mass/Vol] Negative Negative [facility] RBC Auto (Bld) [#/Vol]Ordere d By: Natalia Fontana on 06-20-2022 RBC (Bld) [#/Vol] 4.65 10*6/uL 3.60-5.00 [facility] Serum or plasma anion gap de terminationOrdered By: Natalia Fontana on 06-20-2022 Anion gap [Moles/Vol] 13.3 mmol/L 6.0-15.0 [facility] Serum or plasma calcium luna urement (mass/volume)Ordered By: Natalia Fontana on 06-20-2022 Calcium [Mass/Vol] 9.7 mg/dL 8.2-10.2 [facility] Serum or plasma chloride haider surement (moles/volume)Ordered By: Natalia Fontana on 06-20-2022 Chloride [Moles/Vol] 95 mmol/L 95-114 [facility] Serum or plasma glucose luna urement (mass/volume)Ordered By: Natalia Fontana on 06-20-2022 Glucose [Mass/Vol] 109 mg/dL 70-100 [facility] Comment on above: ADA recommended refe rence range Random Glucose Reference Range is dependent on time and content of last meal. Glucose of more than 200 mg/dL in a nonstressed, ambulatory subject supports the diagnosis of Diabetes Mellitus. ADA recommended refe rence rangeRandom Glucose Reference Range is dependent on time and content of last meal. Glucose of more than 200 mg/dL in a nonstressed, ambulatory subject supports the diagnosis of Diabetes Mellitus. Serum or plasma potassium me asurement (moles/volume)Ordered By: Natalia Fontana on 06-20-2022 Potassium [Moles/Vol] 3.8 mmol/L 3.5-5.1 [facility] Serum or plasma sodium measu rement (moles/volume)Ordered By: Natalia Fontana on 06-20-2022 Sodium [Moles/Vol] 134 mmol/L 136-146 [facility] Serum or plasma total carbon dioxide measurement (moles/volume)Ordered By: Natalia Fontana on 06-20-2022 CO2 [Moles/Vol] 29.5 mmol/L 22.0-30.0 [facility] Serum or plasma urea nitroge n measurement (mass/volume)Ordered By: Natalia Fontana on 06-20-2022 Urea nitrogen [Mass/Vol] 10 mg/dL 9- [facility] Specific gravity Auto test s trip (U) [Rel density]Ordered By: Natalia Fontana on 06-20-2022 Specific gravity (U) [Rel density] 1.005 1.001-1.030 [facility] Troponin I.cardiac [Mass/vol ume] in Serum or Plasma by High sensitivity methodOrdered By: Natalia Fontana on 06-20-2022 Troponin I.cardiac High sens itivity method [Mass/Vol] 3 pg/mL 0-15 [facility] Urine clarity by refractomet ry automatedOrdered By: Natalia Fontana on 06-20-2022 Clarity Refractometry automated (U) Clear Clear [facility] Urine glucose measurement by automated test strip (mass/volume)Ordered By: Natalia Fontana on 06-20-2022 Glucose Auto test strip (U) [Mass/Vol] Normal mg/dL Normal [facility] Urine hemoglobin detection b y automated test stripOrdered By: Natalia Fontana on 06-20-2022 Hemoglobin Auto test strip Ql (U) Negative Ne gative [facility] Urine leukocyte esterase det ection by automated test stripOrdered By: Natalia Fontana on 06-20-2022 Leukocyte esterase Auto test strip Ql (U) Negative Negative [facility] Urobilinogen Auto test strip (U) [Mass/Vol]Ordered By: Natalia Fontana on 06-20-2022 Urobilinogen (U) [Mass/Vol] Normal mg/dL Normal [facility] pH Auto test strip (U)Ordere d By: Natalia Fontana on 06-20-2022 pH (U) 6.5 [pH] 5.0-9.0 [facility] CULTURE URINEon 06-19-2022 CULTURE URINE Culture Observations : LIGHT GROWTH OF MIXED GENITAL MICAH. NO POTENTIAL PATHOGENS SEEN. Normal [facility] ospital Comment on above: Performed By: #### U RCX ####[facility] [id number] [place], [place] [address]DrJulia Rowley UA RANDOM W/MICROSCOPICon BACTERIA TRACE Abnormal NONE SEEN [facility] ospital Comment on above: Performed By: #### H STROPN, BNP, LIPA, CMP, TSH #### [facility] [address] [address] [address] Alyson Rowley Bilirubin Ql (U) Negative Normal NEGATIVE [facility] Comment on above: Performed By: #### H STROPN, BNP, LIPA, CMP, TSH #### [facility] [address] [address] [address] Alyson Rowley CAST NONE SEEN Normal NONE SEEN [facility] ospital Comment on above: Performed By: #### H STROPN, BNP, LIPA, CMP, TSH #### [facility] [address] [address] [address] Alyson Rowley Clarity (U) CLEAR Normal CLEAR [facility] Comment on above: Performed By: #### H STROPN, BNP, LIPA, CMP, TSH #### [facility] [address] [address] [address] Alyson Rowley Color (U) YELLOW Normal YELLOW [facility] Comment on above: Performed By: #### H STROPN, BNP, LIPA, CMP, TSH #### [facility] [address] [address] [address] Alyson Rowley Crystals LM Nom (Urine sed) NONE SEEN Normal NONE SEE N [facility] Comment on above: Performed By: #### H STROPN, BNP, LIPA, CMP, TSH #### [facility] [address] [address] [address] Alyson Rowley Epithelial cells LM Ql (Urine sed) FEW Abnormal N ONE SEEN /RARE [facility] Comment on above: Performed By: #### H STROPN, BNP, LIPA, CMP, TSH #### [facility] [address] [address] [address] Alyson Rowley Glucose Ql (U) Negative Normal NEGATIVE [facility] Comment on above: Performed By: #### H STROPN, BNP, LIPA, CMP, TSH #### [facility] [address] [address] [address] Alyson Rowley Hemoglobin Ql (U) Negative Normal NEGATIVE [facility] Comment on above: Performed By: #### H STROPN, BNP, LIPA, CMP, TSH #### [facility] [address] [address] [address] Alyson Rowley Ketones Ql (U) Negative Normal NEGATIVE [facility] Comment on above: Performed By: #### H STROPN, BNP, LIPA, CMP, TSH #### [facility] [address] [address] [address] Alyson Rowley LEUKOCYTES TRACE Abnormal NEGATIVE [facility]ital Comment on above: Performed By: #### H STROPN, BNP, LIPA, CMP, TSH #### [facility] [address] [place] [address] Dr. Alyson Rowley MUCOUS NONE SEEN Normal NONE SEEN [facility] Comment on above: Performed By: #### H STROPN, BNP, LIPA, CMP, TSH #### [facility] [address] [place] [address] Dr. Alyson Rowley Nitrite Ql (U) Negative Normal NEGATIVE [facility] Comment on above: Performed By: #### H STROPN, BNP, LIPA, CMP, TSH #### [facility] [address] [place] [address] Dr. Alyson Rowley pH (U) 6.0 [pH] Normal 5-9 [facility] ostal Comment on above: Performed By: #### H STROPN, BNP, LIPA, CMP, TSH #### [facility] [address] [place] [address] Dr. Alyson Rowley RBC 0-2 Normal 0-2 [facility]ital Comment on above: Performed By: #### H STROPN, BNP, LIPA, CMP, TSH #### [facility] [address] [place] [address] Dr. Alyson Rowley SPEC GRAVITY 1.015 Normal 1.005-<=1.025 [facility] Comment on above: Performed By: #### H STROPN, BNP, LIPA, CMP, TSH #### [facility] [address] [place] [address] Dr. Alyson Rowley UA PROTEIN Negative Normal NEGATIVE/ TRACE [facility] Comment on above: Performed By: #### H STROPN, BNP, LIPA, CMP, TSH #### [facility] [address] [address] [address] Alyson Rowley Urobilinogen Qn (U) 0.2 {Karen'U}/dL Normal 0.2 - 1. 0 [facility] Comment on above: Performed By: #### H STROPN, BNP, LIPA, CMP, TSH #### [facility] [address] [address] [address] Alyson oRwley WBC 2-5 Abnormal NONE SEEN [facility] Comment on above: Performed By: #### H STROPN, BNP, LIPA, CMP, TSH #### [facility] [address] [address] [address] Alyson Rowley TROPONIN, HIGH SENSITIVITYon 06-14-2022 HSTROP 4.4 pg/mL Normal 4.0-51.3 [facility] Comment on above: Result Comment: CUT- OFF POINTS HAVE BEEN ESTABLISHED BASED ON THE FOURTH UNIVERSAL DEFINITIONS OF MYOCARDIAL INFARCTION. THE UPPER REFERENCE LIMIT (URL) OF TROPONIN, DEFINED THE 99TH PERCENTILE OF cTnI DISTRIBUTION IN A REFERENCE POPULATION, HAS BEEN CONFIRMED THE DECISION THRESHOLD FOR [place] DIAGNOSIS. Performed By: #### H STROPN ####[facility] [id number] [address]Dr. Alyson Rowley CBC AUTO DIFFon 06-13-2022 BASO # 0.0 103/ul Normal 0.0-0.1 [facility] Comment on above: Performed By: #### H STROPN, BNP, LIPA, CMP, TSH #### [facility] [address] [address] [address] Alyson Rowley Basophils/100 WBC (Bld) 0.7 % Normal 0.2-2.0 T [facility] Comment on above: Performed By: #### H STROPN, BNP, LIPA, CMP, TSH #### [facility] [address] [address] [address] Alyson Rowley EO # 0.2 103/ul Normal 0.0-0.7 [facility] ospital Comment on above: Performed By: #### H STROPN, BNP, LIPA, CMP, TSH #### [facility] [address] [place] [address] Dr. Alyson Rowley Eosinophils/100 WBC (Bld) 3.1 % Normal 0.9-7.0 [facility] Comment on above: Performed By: #### H STROPN, BNP, LIPA, CMP, TSH #### [facility] [address] [place] [address] Dr. Alyson Rowley Erythrocyte distribution wid th (RBC) [Ratio] 13.1 % Normal 11.0-15.0 [facility] Comment on above: Performed By: #### H STROPN, BNP, LIPA, CMP, TSH #### [facility] [address] [place] [address] Dr. Alyson Rowley Hematocrit (Bld) [Volume fraction] 36.9 % Normal 3 6.0-48.0 [facility] Comment on above: Performed By: #### H STROPN, BNP, LIPA, CMP, TSH #### [facility] [address] [place] [address] Dr. Alyson Rowley Hemoglobin (Bld) [Mass/Vol] 12.1 g/dL Normal 12.0-16. 0 [facility] Comment on above: Performed By: #### H STROPN, BNP, LIPA, CMP, TSH #### [facility] [address] [place] [address] Dr. Alyson Rowley IG # 0.00 10e3/ul Normal 0.00-0.03 [facility] Comment on above: Performed By: #### H STROPN, BNP, LIPA, CMP, TSH #### [facility] [address] [place] [address] Dr. Alyson Rowley IG % 0.0 % Normal 0.0-0.5 [facility] Comment on above: Performed By: #### H STROPN, BNP, LIPA, CMP, TSH #### [facility] [address] [place], [place] [id number] Dr. Alyson Rowley LYMPH # 2.2 103/ul Normal 1.2-3.8 [facility] Comment on above: Performed By: #### H STROPN, BNP, LIPA, CMP, TSH #### [facility] [address] [place] [address] Dr. Alyson Rowley Lymphocytes/100 WBC (Bld) 35.4 % Normal 20.5-60.0 [facility] Comment on above: Performed By: #### H STROPN, BNP, LIPA, CMP, TSH #### [facility] [address] [place] [address] Dr. Alyson Rowley MANUAL DIFF REQ NO Normal [facility] Comment on above: Performed By: #### H STROPN, BNP, LIPA, CMP, TSH #### [facility] [address] [place] [address] Dr. Alyson Rowley MCH (RBC) [Entitic mass] 28.4 pg Normal 26.7-34.0 [facility] Comment on above: Performed By: #### H STROPN, BNP, LIPA, CMP, TSH #### [facility] [address] [place] [address] Dr. Alyson Rowley MCHC (RBC) [Mass/Vol] 32.8 g/dL Normal 29.9-35.2 [facility] Comment on above: Performed By: #### H STROPN, BNP, LIPA, CMP, TSH #### [facility] [address] [place] [address] Dr. Alyson Rowley MCV (RBC) [Entitic vol] 86.6 fL Normal 81.0-99.0 [facility] Comment on above: Performed By: #### H STROPN, BNP, LIPA, CMP, TSH #### [facility] [address] [place] [address] Dr. Alyson Rowley MONO # 0.5 103/ul Normal 0.3-0.8 [facility] Comment on above: Performed By: #### H STROPN, BNP, LIPA, CMP, TSH #### [facility] [address] [address] [address] Alyson Rowley Monocytes/100 WBC (Bld) 8.1 % Normal 1.7-12.0 T [facility] Comment on above: Performed By: #### H STROPN, BNP, LIPA, CMP, TSH #### [facility] [address] [place] [address] Dr. Alyson Rowley NEUT # 3.2 103/ul Normal 1.4-6.5 [facility] o[facility]ital Comment on above: Performed By: #### H STROPN, BNP, LIPA, CMP, TSH #### [facility] [address] [place] [address] Dr. Alyson Rowley Neutrophils/100 WBC (Bld) 52.7 % Normal 43.0-75.0 [facility] Comment on above: Performed By: #### H STROPN, BNP, LIPA, CMP, TSH #### [facility] [address] [place] [address] Dr. Alyson Rowley Platelet mean volume (Bld) [Entitic vol] 9.6 fL Normal 9.5-13.5 [facility] Comment on above: Performed By: #### H STROPN, BNP, LIPA, CMP, TSH #### [facility] [address] [place] [address] Dr. Alyson Rowley PLT 188 103/ul Normal 150-450 [facility]ital Comment on above: Performed By: #### H STROPN, BNP, LIPA, CMP, TSH #### [facility] [address] [place] [address] Dr. Alyson Rowley RBC 4.26 106/ul Normal 4.20-5.40 [facility] Comment on above: Performed By: #### H STROPN, BNP, LIPA, CMP, TSH #### [facility] [address] [place] [address] Dr. Alyson Rowley WBC 6.1 103/ul Normal 4.0-11.0 [facility] Comment on above: Performed By: #### H STROPN, BNP, LIPA, CMP, TSH #### [facility] [address] [place] [address] Dr. Alyson Rowley PROF 14(COMP METB)on 022 Albumin [Mass/Vol] 3.8 g/dL Normal 3.4-5.0 [facility] Comment on above: Performed By: #### H STROPN, BNP, LIPA, CMP, TSH #### [facility] [address] [place] [address] Dr. Alyson Rowley Albumin/Globulin [Mass ratio] 1.2 {ratio} Normal [facility] Comment on above: Performed By: #### H STROPN, BNP, LIPA, CMP, TSH #### [facility] [address] [place] [address] Dr. Alyson Rowley ALP [Catalytic activity/Vol] 55 U/L Normal 46-116 [facility] Comment on above: Performed By: #### H STROPN, BNP, LIPA, CMP, TSH #### [facility] [address] [place] [address] Dr. Alyson Rowley ALT [Catalytic activity/Vol] 18 U/L Normal 14-59 [facility] Comment on above: Performed By: #### H STROPN, BNP, LIPA, CMP, TSH #### [facility] [address] [place] [address] Dr. Alyson Rowley Anion gap [Moles/Vol] 11.2 mmol/L Normal [facility] Comment on above: Performed By: #### H STROPN, BNP, LIPA, CMP, TSH #### [facility] [address] [place] [address] Dr. Alyson Rolwey AST [Catalytic activity/Vol] 16 U/L Normal 15-37 [facility] Comment on above: Performed By: #### H STROPN, BNP, LIPA, CMP, TSH #### [facility] [address] [place] [address] Dr. Alyson Rowley Bilirubin [Mass/Vol] 0.4 mg/dL Normal 0.2-1.0 [facility] Comment on above: Performed By: #### H STROPN, BNP, LIPA, CMP, TSH #### [facility] [address] [address] [address] Alyson Rowley Calcium [Mass/Vol] 9.6 mg/dL Normal 8.5-10.1 [facility] Comment on above: Performed By: #### H STROPN, BNP, LIPA, CMP, TSH #### [facility] [address] [address] [address] Alyson Rowley Chloride [Moles/Vol] 99 mmol/L Normal 98-107 [facility] Comment on above: Performed By: #### H STROPN, BNP, LIPA, CMP, TSH #### [facility] [address] [place] [address] Dr. Alyson Rowley CO2 [Moles/Vol] 29.3 mmol/L Normal 21.0-32.0 [facility] Comment on above: Performed By: #### H STROPN, BNP, LIPA, CMP, TSH #### [facility] [address] [place] [address] Dr. Alyson Rowley Creatinine [Mass/Vol] 0.86 mg/dL Normal 0.55-1.02 [facility] Comment on above: Performed By: #### H STROPN, BNP, LIPA, CMP, TSH #### [facility] [address] [place] [address] Dr. Alyson Rowley EGFR-AF TURKISH >60 Normal >=60 [facility] Comment on above: Performed By: #### H STROPN, BNP, LIPA, CMP, TSH #### [facility] [address] [place] [address] Dr. Alyson Rowley EGFR-NON AF TURKISH >60 Normal >=60 [facility] Comment on above: Performed By: #### H STROPN, BNP, LIPA, CMP, TSH #### [facility] [address] [place] [address] Dr. Alyson Rowley Globulin (S) [Mass/Vol] 3.1 g/dL Normal T [facility] Comment on above: Performed By: #### H STROPN, BNP, LIPA, CMP, TSH #### [facility] [address] [place] [address] Dr. Alyson Rowley Glucose [Mass/Vol] 224 mg/dL Critically high 74-106 T [facility] Comment on above: Performed By: #### H STROPN, BNP, LIPA, CMP, TSH #### [facility] [address] [address] [address] Alyson Rowley Potassium [Moles/Vol] 4.5 mmol/L Normal 3.5-5.1 [facility] Comment on above: Performed By: #### H STROPN, BNP, LIPA, CMP, TSH #### [facility] [address] [address] [address] Alyson Rowley Protein [Mass/Vol] 6.9 g/dL Normal 6.4-8.2 [facility] Comment on above: Performed By: #### H STROPN, BNP, LIPA, CMP, TSH #### [facility] [address] [place] [address] Dr. Alyson Rowley Sodium [Moles/Vol] 135 mmol/L Critically low 136-145 Th [facility] Comment on above: Performed By: #### H STROPN, BNP, LIPA, CMP, TSH #### [facility] [address] [address] [address] Alyson Rowley Urea nitrogen [Mass/Vol] 15.0 mg/dL Normal 7.0-18.0 [facility] Comment on above: Performed By: #### H STROPN, BNP, LIPA, CMP, TSH #### [facility] [address] [address] [address] Alyson Rwoley Urea nitrogen/Creatinine [Mass ratio] 17.4 mg/mg Normal [facility] Comment on above: Performed By: #### H STROPN, BNP, LIPA, CMP, TSH #### [facility] [address] [place] [address] Dr. Alyson Rowley TROPONIN, HIGH SENSITIVITYon 06-13-2022 HSTROP <4.0 Normal 4.0-51.3 [facility]ital Comment on above: Result Comment: CUT- OFF POINTS HAVE BEEN ESTABLISHED BASED ON THE FOURTH UNIVERSAL DEFINITIONS OF MYOCARDIAL INFARCTION. THE UPPER REFERENCE LIMIT (URL) OF TROPONIN, DEFINED THE 99TH PERCENTILE OF cTnI DISTRIBUTION IN A REFERENCE POPULATION, HAS BEEN CONFIRMED THE DECISION THRESHOLD FOR [place] DIAGNOSIS. Performed By: #### H STROPN, BNP, LIPA, CMP, TSH #### [facility] [address] [address] [address] Alyson Rowley XR CHEST 1 Von 06-13-2022 XR CHEST 1 V EXAM: XR CHEST 1 V INDICATION: CHEST PAIN, UNSPECIFIED. COMPARISON: Chest radiograph 11/24/2015 TECHNIQUE: Single frontal view of the chest FINDINGS: Normal cardiomediastinal contours. Clear lungs. No pleural effusion or pneumothorax. No acute osseous abnormality. IMPRESSION: No acute cardiopulmonary process. Electronically authenticated by: ELOISE MORRIS Date: 2022-06-13 21:07 Normal [facility] CULTURE URINEon 06-12-2022 CULTURE URINE Culture Observations : LIGHT GROWTH OF MIXED GENITAL MICAH. NO POTENTIAL PATHOGENS SEEN. Normal [facility]ital Comment on above: Performed By: #### U RCX ####[facility] [id number] [address]Dr. Alyson Rowley GLYCOHEMOGLOBIN A1Con 2021 ADA RECOMMENDATION SEE BELOW Normal [facility] Comment on above: Result Comment: ADA RECOMMENDED LIMIT 4.0 - 6.0 ADA THERAPEUTIC TARGET < 7.0 ACTION SUGGESTED > 7.0 Performed By: #### H STROPN, BNP, LIPA, CMP, TSH #### [facility] [address] [address] [address] Alyson Rowley Glucose [Mass/Vol] 123 mg/dL Normal [facility] Comment on above: Performed By: #### H STROPN, BNP, LIPA, CMP, TSH #### [facility] [address] [address] [address] Alyson Rowley HbA1c (Bld) [Mass fraction] 5.9 % Normal 4.5-6.2 [facility] Comment on above: Performed By: #### H STROPN, BNP, LIPA, CMP, TSH #### [facility] [address] [address] [address] Alyson Rowley UA RANDOM W/MICROSCOPICon BACTERIA NONE SEEN Normal NONE SEEN [facility] Comment on above: Performed By: #### H STROPN, BNP, LIPA, CMP, TSH #### [facility] [address] [address] [address] Alyson Rowley Bilirubin Ql (U) Negative Normal NEGATIVE [facility] Comment on above: Performed By: #### H STROPN, BNP, LIPA, CMP, TSH #### [facility] [address] [address] [address] Alyson Rowley CAST SEEN Abnormal NONE SEEN [facility] Comment on above: Performed By: #### H STROPN, BNP, LIPA, CMP, TSH #### [facility] [address] [place] [address] Dr. Alyson Rowley Clarity (U) CLEAR Normal CLEAR [facility] Comment on above: Performed By: #### H STROPN, BNP, LIPA, CMP, TSH #### [facility] [address] [place] [address] Dr. Alyson Rowley Color (U) YELLOW Normal YELLOW [facility] Comment on above: Performed By: #### H STROPN, BNP, LIPA, CMP, TSH #### [facility] [address] [place] [address] Dr. Alyson Rowley Crystals LM Nom (Urine sed) NONE SEEN Normal NONE SEE N [facility] Comment on above: Performed By: #### H STROPN, BNP, LIPA, CMP, TSH #### [facility] [address] [place] [address] Dr. Alyson Rowley Epithelial cells LM Ql (Urine sed) FEW Abnormal N ONE SEEN /RARE [facility] Comment on above: Performed By: #### H STROPN, BNP, LIPA, CMP, TSH #### [facility] [address] [place] [address] Dr. Alyson Rowley Glucose Ql (U) Negative Normal NEGATIVE [facility] Comment on above: Performed By: #### H STROPN, BNP, LIPA, CMP, TSH #### [facility] [address] [place] [address] Dr. Alyson Rowley Hemoglobin Ql (U) Negative Normal NEGATIVE [facility] Comment on above: Performed By: #### H STROPN, BNP, LIPA, CMP, TSH #### [facility] [address] [address] [address] Alyson Rowley Ketones Ql (U) TRACE Abnormal NEGATIVE [facility] Comment on above: Performed By: #### H STROPN, BNP, LIPA, CMP, TSH #### [facility] [address] [address] [address] Alyson Rowley LEUKOCYTES Negative Normal NEGATIVE [facility] Comment on above: Performed By: #### H STROPN, BNP, LIPA, CMP, TSH #### [facility] [address] [place] [address] Dr. Alyson Rowley MUCOUS NONE SEEN Normal NONE SEEN [facility] Comment on above: Performed By: #### H STROPN, BNP, LIPA, CMP, TSH #### [facility] [address] [place] [address] Dr. Alyson Rowley Nitrite Ql (U) Negative Normal NEGATIVE [facility] Comment on above: Performed By: #### H STROPN, BNP, LIPA, CMP, TSH #### [facility] [address] [place] [address] Dr. Alyson Rowley pH (U) 6.0 [pH] Normal 5-9 [facility] Comment on above: Performed By: #### H STROPN, BNP, LIPA, CMP, TSH #### [facility] [address] [place] [address] Dr. Alyson Rowley RBC 0-2 Normal 0-2 [facility] Comment on above: Performed By: #### H STROPN, BNP, LIPA, CMP, TSH #### [facility] [address] [place] [address] Dr. Alyson Rowley SPEC GRAVITY 1.015 Normal 1.005-<=1.025 [facility] Comment on above: Performed By: #### H STROPN, BNP, LIPA, CMP, TSH #### [facility] [address] [place] [address] Dr. Alyson Rowley UA PROTEIN Negative Normal NEGATIVE/ TRACE [facility] Comment on above: Performed By: #### H STROPN, BNP, LIPA, CMP, TSH #### [facility] [address] [address] [address] Alyson Rowley Urobilinogen Qn (U) 0.2 {Karen'U}/dL Normal 0.2 - 1. 0 [facility] Comment on above: Performed By: #### H STROPN, BNP, LIPA, CMP, TSH #### [facility] [address] [address] [address] Alyson Rowley WBC 0-2 Abnormal NONE SEEN [facility] Comment on above: Performed By: #### H STROPN, BNP, LIPA, CMP, TSH #### [facility] [address] [address] [address] Alyson Rowley Office Visit (Cardiology)on 05-29-2022 Follow-up visit Diagnoses/Problems Assessed Chest pain (786.50) (R07.9) Atypical in nature (non-exertional with extended duration) No exertional symptoms (housework, vaccum) Jun 2020 MPI no ischemia Dizziness (780.4) (R42) Resolution off lisinopril and gabapentin Benign essential hypertension (401.1) (I10) optimal with addition of norvasc Body mass index (BMI) of 19.9 or less in adult (Z68.1) Patient Instructions Please bring all medicines, vitamins, and herbal supplements with you when you come to the office. Prescriptions will not be filled unless you are compliant with your follow up appointments or have a follow up appointment scheduled as per instruction of your physician. Refills should be requested at the time of your visit. PLAN: Through informed decision making process incorporating patients unique circumstances, the following treatment plan will be initiated: 1. Prescription drug management of cardiovascular medication for efficacy, adherence to treatment, side effect assessment and polypharmacy. Current treatment clinically warranted and to continue without modifications. 2. If you have any additional chest pain please let me know and we could consider getting stress test at that time 3. Return for follow-up; in the interim, contact the office if new symptoms arise. Dr. Rosas as scheduled Chief Complaint I stoppped the gabapentin and I feel like a new person' MARITZA VICENTE is being seen for a 1 month follow-up of dizziness. Patient is ambulatory with steady gait. Last evaluated in clinic by myself April 2022. At that time, lisinopril stopped d/t dizziness. She called into office with elevated BP and norvasc 2.5mg added. She was evaluated by vestibular therapy: unfortunately due to co-pay was not able to attend. 2 episodes of RS crushing/sharp pain into left shoulder and arm. Was cooking dinner Duration 'quite a while' Has cervical disc disease None noted with exertional activity like cleaning house or vacuuming Last MPI Jun 2020. Otherwise, off gabapentin AND lisinopril dizziness has resolved. History of Present Illness The patient states she has been generally doing well since the last visit. Comorbid Illnesses: hypertension and hyperlipidemia. Symptoms: denies chest pain at rest, stable exertional chest pain, denies dyspnea, denies fatigue, denies exercise intolerance, denies palpitations, denies edema, denies orthopnea, resolved dizziness and denies orthostatic dizziness. Associated symptoms: no syncope. Her symptoms do not limit her activities. Disease Monitoring: The patient has had a stable weight. Medications: the patient is adherent with her medication regimen. She denies medication side effects. Surgical History Problems History of Appendectomy History of Cholecystectomy History of Complete colonoscopy History of Elbow surgery History of Hysterectomy History of Neck surgery Current Meds Medication NameInstruction amLODIPine Besylate 2.5 MG Oral TabletTAKE 1 TABLET DAILY. Aspirin EC 81 MG Oral Tablet Delayed ReleaseTAKE 1 TABLET DAILY. metFORMIN HCl - 500 MG Oral TabletTAKE 1 TABLET DAILY. Multi Vitamin TABSTAKE 1 TABLET DAILY. Tylenol Extra Strength TABSTAKE 1 TABLET EVERY 4 TO 6 HOURS NEEDED. Vitamin D3 50 MCG (2000 UT) Oral TabletTake 1 tablet daily Zocor 40 MG Oral TabletTAKE 1 TABLET AT BEDTIME. Allergies Medication morphine Adverse Reaction; Hypertension;; Recorded By: Karol Ascencio; 07/12/2021 4:23:07 PM Social History Problems Never a smoker No alcohol use No caffeine use No illicit drug use Review of Systems Constitutional: not feeling tired. Cardiovascular: chest pain, but no palpitations and no lower extremity edema. Respiratory: no shortness of breath during exertion, no orthopnea and no PND. Vitals Vital Signs Recorded: [id number] 03:06PM Heart Rate62, L Radial Elfkqccv441, LUE, Sitting Uldlxtbat44, LUE, Sitting Height5 ft 2 in Uwjhci636 lb BMI Asljdpcbnw90.57 kg/m2 BSA Calculated1.47 Tobacco Useb) No PHQ-2 #1. Over the last 2 weeks have you felt down, depressed or hopeless? (If yes, answer PHQ-9 below)No PHQ-2 #2. Over the last 2 weeks have you felt little interest or pleasure in doing things? (If yes, answer PHQ-9 below)No Falls Screening (Age 18+)a) No falls within the last year Physical Exam Constitutional: alert and in no acute distress. Neck: neck is supple, symmetric, trachea midline, no masses . Pulmonary: no increased work of breathing or signs of respiratory distress and lungs clear to auscultation. Cardiovascular: JVP was normal, regular rhythm, normal S1 and S2, no murmurs and no edema . Abdomen: abdomen non-tender, no masses . Skin: skin warm and dry, normal skin turgor . Psychiatric oriented to person, place and time and normal mood and affect . Signatures Avelino Berry MSN, RACE CAR DRIVER-DIRECTOR OF QUANTITATIVE RESEARCH, PMHNP-BC [facility] [place] Please excuse any errors in grammar or transla (more content not included)... Normal [facility] orks Tobacco Screening.on 022 Adult depression screening assessment No [facility] art-[place] 250 DO Work Phone: Fall risk assessment a) No falls within the last year [facility] Heart- [place] 250 DO Work Phone: Tobacco use status [facility] b) No M [facility]-[place] 250 DO Work Phone: Urine culture routineOrdered By: Arely Dasilva on 05-13-2022 Bacteria identified Cx Nom (U) 2 Days [facility] Urinalysis - AUTOMATEDon Appearance (U) cloudy [place] [employer] Other Bilirubin Ql (U) Negative [facility] ast [employer] Other Color (U) yellow [facility] Pr ofRazume Other Glucose Ql (U) Negative [employer] Other Hemoglobin Ql (U) Negative [employer] oa[employer]udem Other Ketones Ql (U) Negative [employer] Other Leukocyte esterase Test stri p Ql (U) trace [facility] Prof essTailwind Other Nitrite Ql (U) Negative [place] [employer] Other pH (U) 5.5 [pH] [facility] Pr ofRazume Other Protein Ql (U) Negative [place] [employer] Other Specific gravity (U) [Rel density] 1.010 [facility] [employer] Other Urobilinogen (U) [Mass/Vol] 0.2 mg/dL [facility] [employer] Other Urinalysis - AUTOMATED [facility] Other Falls Screening (Age 18+)on 04-18-2022 Adult depression screening assessment No [facility] 139shop DO Work Phone: Fall risk assessment a) No falls within the last year [facility] [employer] 250 DO Work Phone: Tobacco use status [facility] b) No M [facility] the grafter DO Work Phone: Office Visit (Cardiology)on 04-18-2022 Follow-up visit Diagnoses/Problems Assessed Dizziness (780.4) (R42) Hyperlipemia (272.4) (E78.5) Diabetes mellitus (250.00) (E11.9) Benign essential hypertension (401.1) (I10) Body mass index (BMI) of 19.9 or less in adult (Z68.1) Orders Body mass index (BMI) of 19.9 or less in adult Healthy Weight Tips; Status:Complete; Done: [id number] Dizziness Physical Therapy - Vestibular Referral Evaluation and Treatment Evaluate AND Treat dizziness Status: Hold For - Scheduling Requested for: [id number] Chris Kelly at [facility] Unlinked Stop: Lisinopril 5 MG Oral Tablet Stop: Meclizine HCl - 25 MG Oral Tablet Patient Instructions Please bring all medicines, vitamins, and herbal supplements with you when you come to the office. Prescriptions will not be filled unless you are compliant with your follow up appointments or have a follow up appointment scheduled as per instruction of your physician. Refills should be requested at the time of your visit. PLAN: Through informed decision making process incorporating patients unique circumstances, the following treatment plan will be initiated: 1. Prescription drug management of cardiovascular medication for efficacy, adherence to treatment, side effect assessment and polypharmacy. Current treatment clinically warranted and to continue with following modifications: - Stop lisinopril - Stop meclizine 2. Take blood pressure once a day in the morning and keep record 3. Return for follow-up; in the interim, contact the office if new symptoms arise. PRIMARY CARE PHYSICIAN in 4 weeks 4. Referral to Chris Kelly for vestibular therapy (dx: dizziness, BPV)1 1 Amended By: Avelino Brooks; Apr 18 2022 3:21 PM ESTChief Complaint I am doing so-so MARITZA VICENTE is being seen for dizziness. Last evaluated in clinic Dr. Rosas Aug 2021. Seen in ER twice over last week due to dizziness. She was off lisinopril Sep 2021 and resumed last Saturday. Is unclear if was lightheaded off lisinopril Taking BP multiple times t/o the day Has seen Neurology with MRI due to dizziness Carotid USN is in the chart (0-49% b/l) Lightheadedness has been ongoing problem for a while Not clearly POH, standing BP in office 138/62 No syncope; + near syncope but 'she knows to sit down' Symptoms occur with no aggravating factors Is taking meclizine on her own with no benefit at this time but seemed to help when originally put on. No supine symptoms or worse with head movement TALON was unremarkable Jun 2021 Echo LVEF 60-65% History of Present Illness The patient states she has been generally stable since the last visit. Symptoms: denies chest pain at rest, denies exertional chest pain, denies dyspnea, denies fatigue, denies exercise intolerance, denies palpitations, denies edema, denies orthopnea, denies claudication, worsened dizziness and denies orthostatic dizziness. Associated symptoms: no syncope. Her symptoms do not limit her activities. Disease Monitoring: Medications: the patient is adherent with her medication regimen. She denies medication side effects. Surgical History Problems History of Appendectomy History of Cholecystectomy History of Complete colonoscopy History of Elbow surgery History of Hysterectomy History of Neck surgery Current Meds Medication NameInstruction Aspirin EC 81 MG Oral Tablet Delayed ReleaseTAKE 1 TABLET DAILY. Gabapentin 300 MG Oral CapsuleTAKE 1 CAPSULE Bedtime Lisinopril 5 MG Oral TabletTAKE 1 TABLET DAILY. Meclizine HCl - 25 MG Oral TabletTAKE 1 TABLET 4 TIMES DAILY NEEDED FOR DIZZINESS. metFORMIN HCl - 500 MG Oral TabletTAKE 1 TABLET DAILY. Multi Vitamin TABSTAKE 1 TABLET DAILY. Tylenol Extra Strength TABSTAKE 1 TABLET EVERY 4 TO 6 HOURS NEEDED. Vitamin D3 50 MCG (1999 UT) Oral TabletTake 1 tablet daily Zocor 40 MG Oral TabletTAKE 1 TABLET AT BEDTIME. Allergies Medication morphine Adverse Reaction; Hypertension;; Recorded By: Karol Ascencio; 07/12/2021 4:23:07 PM Social History Problems Never a smoker No alcohol use No caffeine use No illicit drug use Review of Systems Constitutional: not feeling tired. Cardiovascular: no chest pain, no palpitations and no lower extremity edema. Respiratory: no shortness of breath during exertion, no orthopnea and no PND. Vitals Vital Signs Recorded: [id number] 02:27PM Heart Rate56, L Radial Xcovspyp679, LUE, Sitting Uvymgpqps75, LUE, Sitting Height5 ft 2 in Xkdjuf667 lb BMI Riudbhmmnl48.94 kg/m2 BSA Calculated1.48 Tobacco Useb) No PHQ-2 #1. Over the last 2 weeks have you felt down, depressed or hopeless? (If yes, answer PHQ-9 below)No PHQ-2 #2. Over the last 2 weeks have you felt little interest or pleasure in doing things? (If yes, answer PHQ-9 below)No Falls Screening (Age 18+)a) No falls within the last year Physical Exam Constitutional: alert and in no acute distress. Neck: neck is supple, symmetric, trachea midline, no masses . Pulmonary: no increased work of (more content not included)... Normal [employer] Activated partial thrombopla stin time (aPTT) in platelet poor plasma by coagulation aOrdered By: Mario Fontana on 04-14-2022 aPTT Coag (PPP) [Time] 35.5 s 25.1-36.5 [facility] Automated epithelial cells c ount in urine sediment (number/area)Ordered By: Mario Fontana on 04-14-2022 Epithelial cells Auto (Urine sed) [#/Area] 3-4 [HPF] 0-2 [facility] Automated erythrocytes count in urine sediment (number/area)Ordered By: Mario Fontana on 04-14-2022 RBC Auto (Urine sed) [#/Area] 0-1 [HPF] 0-4 [facility] Automated leukocytes count i n urine sediment (number/area)Ordered By: Mario Fontana on 04-14-2022 WBC Auto (Urine sed) [#/Area] 3-4 [HPF] 0-4 [facility] Automated urine hyaline cast s count (number/volume)Ordered By: Mario Fontana on 04-14-2022 Hyaline casts Auto (U) [#/Vol] None seen [LPF] 0-1 [facility] Basophils Auto (Bld) [#/Vol] Ordered By: Mario Fontana on 04-14-2022 Basophils (Bld) [#/Vol] 0.0 10*3/uL 0.0-0.2 [facility] Basophils/100 WBC Auto (Bld) Ordered By: Mario Fontana on 04-14-2022 Basophils/100 WBC (Bld) 0.6 % . [facility] Bilirubin Test strip Ql (U)O rdered By: Mario Fontana on 04-14-2022 Bilirubin Ql (U) Negative Negative [facility] Blood hemoglobin measurement (mass/volume)Ordered By: Mario Fontana on 04-14-2022 Hemoglobin (Bld) [Mass/Vol] 13.7 g/dL 11.8-15. 4 [facility] Blood leukocytes automated c ount (number/volume)Ordered By: Mario Fontana on 04-14-2022 WBC (Bld) [#/Vol] 5.7 10*3/uL 4.5-11.0 [facility] Body fluid albumin measureme nt (mass/volume)Ordered By: Mario Fontana on 04-14-2022 Albumin (Body fld) [Mass/Vol] 4.0 g/dL 3.2-5. 5 [facility] Color Auto (U)Ordered By: Hung red Marizol on 04-14-2022 Color (U) Yellow Yellow [facility] Creatinine and Glomerular fi ltration rate.predicted panel (S/P/Bld)Ordered By: Mario Fontana on 04-14-2022 Creatinine [Mass/Vol] 0.71 mg/dL 0.44-1.03 [facility] Eosinophils Auto (Bld) [#/Vo l]Ordered By: Mario Fontana on 04-14-2022 Eosinophils (Bld) [#/Vol] 0.1 10*3/uL 0.0-0.45 [facility] Eosinophils/100 WBC Auto (Bl d)Ordered By: Mario Fontana on 04-14-2022 Eosinophils/100 WBC (Bld) 2.2 % . [facility] Erythrocyte distribution wid th Auto (RBC) [Ratio]Ordered By: Mario Fontana on 04-14-2022 Erythrocyte distribution wid th (RBC) [Ratio] 13.3 % 11.9-15.3 [facility] Estimated glomerular filtrat ion rate (GFR) non- AmericanOrdered By: Mario Fontana on 04-14-2022 GFR/1.73 sq M.predicted di g non-blacks MDRD (S/P/Bld) [Vol rate/Area] > 60 mL/Min [facility] Globulin Calc (S) [Mass/Vol] Ordered By: Mario Fontana on 04-14-2022 Globulin (S) [Mass/Vol] 2.7 g/dL [facility] Hematocrit Auto (Bld) [Volum e fraction]Ordered By: Mario Fontana on 04-14-2022 Hematocrit (Bld) [Volume fraction] 40.9 % 3 4.0-46.4 [facility] Ketones Auto test strip (U) [Mass/Vol]Ordered By: Mario Fontana on 04-14-2022 Ketones (U) [Mass/Vol] Negative Negative [facility] - Chemistry and C hemistry - challengeOrdered By: Mario Fontana on 04-14-2022 Natriuretic peptide B (Bld) [Mass/Vol] 102.0 pg/mL 5-100 [facility] Laboratory - CoagulationOrde red By: Mario Fontana on 04-14-2022 PT Coag (PPP) [Time] 13.3 s 9.0-12.9 [facility] - Hematology and Cell countsOrdered By: Mario Fontana on 04-14-2022 Nucleated RBC/100 WBC (Bld) [Ratio] 0.0 % 0-0.5 [facility] Lymphocytes Auto (Bld) [#/Vo l]Ordered By: Mario Fontana on 04-14-2022 Lymphocytes (Bld) [#/Vol] 1.6 10*3/uL 1.00-4.8 [facility] Lymphocytes/100 WBC Auto (Bl d)Ordered By: Mario Fontana on 04-14-2022 Lymphocytes/100 WBC (Bld) 28.5 % . [facility] MCH Auto (RBC) [Entitic mass ]Ordered By: Mario Fontana on 04-14-2022 MCH (RBC) [Entitic mass] 28.2 pg 24.7-34.3 [facility] MCHC Auto (RBC) [Mass/Vol]Or dered By: Mario Fontana on 04-14-2022 MCHC (RBC) [Mass/Vol] 33.4 g/dL 32.0-35.0 [facility] MCV Auto (RBC) [Entitic vol] Ordered By: Mario Fontana on 04-14-2022 MCV (RBC) [Entitic vol] 84.5 fL 80-100 [facility] Monocytes Auto (Bld) [#/Vol] Ordered By: Mario Fontana on 04-14-2022 Monocytes (Bld) [#/Vol] 0.5 10*3/uL 0.0-0.8 [facility] Monocytes/100 WBC Auto (Bld) Ordered By: Mario Fontana on 04-14-2022 Monocytes/100 WBC (Bld) 8.7 % . [facility] Neutrophils Auto (Bld) [#/Vo l]Ordered By: Mario Fontana on 04-14-2022 Neutrophils (Bld) [#/Vol] 3.4 10*3/uL 1.8-7.7 [facility] Neutrophils/100 WBC Auto (Bl d)Ordered By: Mario Fontana on 04-14-2022 Neutrophils/100 WBC (Bld) 60.0 % . [facility] Nitrite Test strip Ql (U)Ord ered By: Mario Fontana on 04-14-2022 Nitrite Ql (U) Negative Negative [facility] No Panel InformationOrdered By: Mario Fontana on 04-14-2022 Estimated GFR () > 60 mL/Min [facility] Comment on above: GFR estimated refere nce range: According to KDOQI guidelines, <60 ml/min/1.73m2 is sufficient to diagnose a patient with chronic kidney disease. Pharmacy Creatinine Clearance (Chem 43.37 [facility] Platelet mean volume Auto (B ld) [Entitic vol]Ordered By: Mario Fontana on 04-14-2022 Platelet mean volume (Bld) [Entitic vol] 8.3 fL 6.3-10.7 [facility] Platelet poor plasma interna tional normalized ratio (INR) by coagulation assay (relatOrdered By: Mario Fontana on 04-14-2022 INR Coag (PPP) [Relative time] 1.2 {INR} [facility] Comment on above: INR Therapeutic Rang e A) Pre- and Peroperative OAT started two weeks before surgery. NOT HIP SURGERY: 1.5 - 2.5 HIP SURGERY: 2 - 3 B) Primary and secondary prevention of venous THROMBOSIS: 2 - 3 C) Active venous thrombosis, pulmonary embolism and prevention of recurrent venous thrombosis: 2 - 3 D) Prevention of arterial thromboembolism including patients with mechanical heart valves: 3 - 4.5 Platelets Auto (Bld) [#/Vol] Ordered By: Mario Fontana on 04-14-2022 Platelets (Bld) [#/Vol] 195 10*3/uL 150-450 [facility] Protein Auto test strip (U) [Mass/Vol]Ordered By: Mario Fontana on 04-14-2022 Protein (U) [Mass/Vol] Negative Negative [facility] Protein [Mass/volume] in Ser um or PlasmaOrdered By: Mario Fontana on 04-14-2022 Protein [Mass/Vol] 6.7 g/dL 6.1-7.9 [facility] RBC Auto (Bld) [#/Vol]Ordere d By: Mario Fontana on 04-14-2022 RBC (Bld) [#/Vol] 4.84 10*6/uL 3.60-5.00 [facility] Serum or plasma alanine gorman otransferase measurement without P-5'-P (enzymatic activiOrdered By: Mario Fontana on 04-14-2022 ALT No additional P-5'-P [Ca talytic activity/Vol] 18 U/L 10-60 [facility] Serum or plasma albumin/glob ulin mass ratioOrdered By: Mario Fontana on 04-14-2022 Albumin/Globulin [Mass ratio] 1.5 {ratio} [facility] Serum or plasma alkaline sarita sphatase measurement (enzymatic activity/volume)Ordered By: Mario Fontana on 04-14-2022 ALP [Catalytic activity/Vol] 44 U/L 32-92 [facility] Serum or plasma aspartate am inotransferase measurement (enzymatic activity/volume)Ordered By: Mario Fontana on 04-14-2022 AST [Catalytic activity/Vol] 22 U/L 10-42 [facility] Serum or plasma calcium luna urement (mass/volume)Ordered By: Mario Fontana on 04-14-2022 Calcium [Mass/Vol] 9.7 mg/dL 8.2-10.2 [facility] Serum or plasma chloride haider surement (moles/volume)Ordered By: Mario Fontana on 04-14-2022 Chloride [Moles/Vol] 97 mmol/L 95-114 [facility] Serum or plasma glucose luna urement (mass/volume)Ordered By: Mario Fontana on 04-14-2022 Glucose [Mass/Vol] 114 mg/dL 70-100 [facility] Comment on above: ADA recommended refe rence range Random Glucose Reference Range is dependent on time and content of last meal. Glucose of more than 200 mg/dL in a nonstressed, ambulatory subject supports the diagnosis of Diabetes Mellitus. Serum or plasma potassium me asurement (moles/volume)Ordered By: Mario Fontana on 04-14-2022 Potassium [Moles/Vol] 4.2 mmol/L 3.5-5.1 [facility] Serum or plasma sodium measu rement (moles/volume)Ordered By: Mario Fontana on 04-14-2022 Sodium [Moles/Vol] 134 mmol/L 136-146 [facility] Serum or plasma total biliru bin measurement (mass/volume)Ordered By: Mario Fontana on 04-14-2022 Bilirubin [Mass/Vol] 0.7 mg/dL 0.3-1.2 [facility] Serum or plasma total carbon dioxide measurement (moles/volume)Ordered By: Mario Fontana on 04-14-2022 CO2 [Moles/Vol] 32.0 mmol/L 22.0-30.0 [facility] Serum or plasma urea nitroge n measurement (mass/volume)Ordered By: Mario Fontana on 04-14-2022 Urea nitrogen [Mass/Vol] 11 mg/dL 9-23 [facility] Specific gravity Auto test s trip (U) [Rel density]Ordered By: Mario Fontana on 04-14-2022 Specific gravity (U) [Rel density] 1.006 1.001-1.030 [facility] Troponin I.cardiac [Mass/vol ume] in Serum or Plasma by High sensitivity methodOrdered By: Mario Fontana on 04-14-2022 Troponin I.cardiac High sens itivity method [Mass/Vol] 3 pg/mL 0-15 [facility] Urine bacteria detection by automated methodOrdered By: Mario Fontana on 04-14-2022 Bacteria Auto Ql (U) None seen None Seen [facility] Urine clarity by refractomet ry automatedOrdered By: Mario Fontana on 04-14-2022 Clarity Refractometry automated (U) Clear Clear [facility] Urine glucose measurement by automated test strip (mass/volume)Ordered By: Mario Fontana on 04-14-2022 Glucose Auto test strip (U) [Mass/Vol] Normal mg/dL Normal [facility] Urine hemoglobin detection b y automated test stripOrdered By: Mario Fontana on 04-14-2022 Hemoglobin Auto test strip Ql (U) Negative Ne gative [facility] Urine leukocyte esterase det ection by automated test stripOrdered By: Mario Fontana on 04-14-2022 Leukocyte esterase Auto test strip Ql (U) 2+ Negative [facility] Urobilinogen Auto test strip (U) [Mass/Vol]Ordered By: Mario Fontana on 04-14-2022 Urobilinogen (U) [Mass/Vol] Normal mg/dL Normal [facility] pH Auto test strip (U)Ordere d By: Mario Fontana on 04-14-2022 pH (U) 7.0 [pH] 5.0-9.0 [facility] VC COMP CONSULTATIONon 03-28 VC COMP CONSULTATION Patient: JOSE VICENTE Exam Date: 03/28/2022 : 1940 Gender:F Ordering : DR BENNY VICK . Admission #: [id number] Family : Order #: [id number] CLICK HERE TO VIEW EXAM RADIOLOGY REPORT PROCEDURE: VC VEIN CENTER CONSULTATION VEIN CENTER - OFFICE VISIT INITIAL COMPARISON: None. PROGRESS NOTES: [age] year old female who presents with onset of bilateral lower extremity bruising without known injury, mild edema, and chronic right ankle pain since fracture many years ago. Patient also describes unintentional 30 lb weight loss over the past 7 years and inability to gain weight. The patient denies any signs and symptoms to suggest arterial ischemia. The patient describes a family history diabetes. The patient has drinking and smoking history of: None. Patient has a past medical history significant for gastritis, unintentional weight loss, type 2 diabetes mellitus, hypertension, degenerative disc disease, vitamin-D deficiency. The patient denies a history of deep venous thrombus or pulmonary embolus. See separate history and physical for medication list. No prior treatment n varicose or spider veins. No current use of compression stockings. After review of nurse notes, history and physical exam I discussed at length the pathophysiology of venous hypertension and possible treatments, therapies and strategies available. We discussed at length the importance of elevating the lower extremities above the level of the heart, increased physical activity and compression stocking use. Ultrasound venous reflux study performed today was discussed at length with the patient. The report demonstrates no significant dilation or incompetency of the superficial veins. PHYSICAL EXAM: The legs demonstrates no significant varicosities, no significant spider veins, no ulceration, mild edema, areas of bruising and skin discoloration on the right and left leg and the distal right arm. Both thighs, legs and feet were symmetrically warm to the touch. Good posterior tibial and dorsalis pedis pulses were present bilaterally. IMPRESSION: 1. No significant venous insufficiency 2. No significant lower extremity varicose veins 3. Mild bilateral lower extremity subcutaneous edema 4. No appreciable flow significant arterial disease 5. CEAP: C0, EN, An, Pn PLAN: 1. Follow-up with Dr. Vick for possible clotting disorder versus incidental bump injuries resulting in bleeding/bruising. 2. No treatment for superficial vein disease needed. Nurse notes, history and physical were reviewed and confirmed, see attached forms. The nurse was present throughout the physical exam and consultation Dictated by: Camryn Corbin M.D. on 03/28/2022 at 14:01 Approved by: Camryn Corbin M.D. on 03/28/2022 at 14:10 Normal [facility] kaylyn VC VENOUS REFLUX STAR LMTon 0 03-28-2022 VC VENOUS REFLUX STAR LMT Patient: MARITZA VICENTE Exam Date: 03/28/2022 : 1940 Gender:F Ordering : DR BENNY VICK . Admission #: [id number] Family : Order #: [id number] CLICK HERE TO VIEW EXAM RADIOLOGY REPORT PROCEDURE: VEIN CENTER ULTRASOUND VENOUS REFLUX BILATERAL LIMTED COMPARISON: None. INDICATIONS: Localized edema R60.0 TECHNIQUE: Duplex imaging of the lower extremity to assess the deep and superficial venous system for the presence of deep or superficial venous incompetence and to document the location and severity of disease. The study includes evaluation of the great saphenous vein (GSV), anterior accessory saphenous vein (AASV) and small saphenous vein (SSV). Patient scanned in reverse Trendelenburg and standing. FINDINGS: RIGHT LOWER EXTREMITY: Saphenofemoral Junction Reflux: Yes 7.0mm 3.4 sec GSV: Diam (mm) Reflux/ Time (sec) Proximal Thigh 6.6 No Mid Thigh 5.1 Yes 0.7 Distal Thigh 4.5 Yes 0.3 Prox Calf 4.0 Yes 0.2 Mid Calf 2.7 No Saphenopopliteal Junction Reflux: 4.5mm Yes 0.3 SSV: Proximal Calf 3.0 Yes 0.2 Mid Calf 2.3 Yes 0.3 AASV: Not present Proximal Thigh Mid Thigh Distal Thigh Thrombi: No acute or chronic thrombus. Compressibility: Normal. Flow: Normal. Preforator: Dist/med calf perf 2.0 mm with 0.4s reflux. Mid/medial lower leg 2.7 mm without reflux. Tech Note: Varicose vein medial/distal thigh measures 4.3 mm without reflux. Posterior/proximal calf varicosity measures 3.2 mm with 0.3s reflux. Mid/medial calf varicose vein measures 2.6 mm with 0.2s reflux. LEFT LOWER EXTREMITY: Saphenofemoral Junction Reflux: Yes 9.2 mm 1.1 sec GSV: Diam (mm) Reflux/Time (sec) Proximal Thigh 7.1 No Mid Thigh 4.0 Yes 0.3 Distal Thigh 4.3 Yes 0.3 Prox Calf 3.8 Yes 0.2 Mid Calf 2.9 Yes 0.3 Saphenopopliteal Junction Relux: 3.7 mm Yes 0.2 SSV: Proximal Calf 3.0 No Mid Calf 2.1 No AASV: Proximal Thigh 3.2 No Mid Thigh 2.6 No Distal Thigh Thrombi: No acute or chronic thrombus Compressibility: Normal. Flow: Normal. Donor Relations Associate: None. Tech Note: Thigh extention of SSV. Mid/medial calf varicose vein measures 2.5 mm without reflux. CONCLUSION: 1. No significant dilation or incompetency of the superficial veins of the right and left lower extremity. Dictated by: Camryn Corbin M.D. on 03/28/2022 at 13:36 Approved by: Camryn Corbin M.D. on 03/28/2022 at 13:37 Normal [facility] kaylyn Urinalysis - AUTOMATEDon Appearance (U) cloudy [place] [employer] Other Bilirubin Ql (U) Negative [facility] [employer] Other Color (U) yellow [facility] [employer] Other Glucose Ql (U) Negative [employer] Other Hemoglobin Ql (U) Negative [place] [employer] Other Ketones Ql (U) Negative [facility] [employer] Other Leukocyte esterase Test stri p Ql (U) trace [facility] [employer] Other Nitrite Ql (U) Negative [place] [employer] Other pH (U) 5.5 [pH] [facility] [employer] Other Protein Ql (U) 30 [employer] Other Specific gravity (U) [Rel density] 1.020 [facility] [employer] Other Urobilinogen (U) [Mass/Vol] 0.2 mg/dL [facility] [employer] Other [facility]inal[facility] - [facility]ATED [facility] [employer] Other Tobacco Screening.on 021 Fall risk assessment b) One or more fall s in the last year [facility] [employer] DO Work Phone: Heart Rate Normal [facility] [employer] DO Work Phone: Tobacco use status CPHS b) No M [facility] the grafter DO Work Phone: Vital Signs Date Time Vital Sign Value Performing Clinician Facility 08-24-2023 00:30-0500 Diastolic blood pressure 67 mm[Hg] II Wilian Moreno Work Phone: [facility] 08-24-2023 00:30-0500 Heart rate 62 /min II Wilian Moreno Work Phone: [facility] 08-24-2023 00:30-0500 Respiratory rate 20 /min II Wilian Moreon Work Phone: [facility] 08-24-2023 00:30-0500 SaO2% (BldA) [Mass fraction] 99 % II Wilian Moreno Work Phone: [facility] 08-24-2023 00:30-0500 Systolic blood pressure 154 mm[Hg] II Wilian Moreno Work Phone: [facility] 08-23-2023 21:00-0500 Body height 157.48 cm II Wilian Moreno Work Phone: [facility] 08-23-2023 21:00-0500 Body temperature 97.5 [degF] II Wilian Moreno Work Phone: [facility] 08-23-2023 21:00-0500 Body weight 44.2 kg II Wilian Moreno Work Phone: [facility] 04-30-2023 14:00-0400 Body height 157.48 cm Mark Win Other [employer] Other 04-30-2023 14:00-0400 Body mass index (BMI) [Ratio] 17.19 kg/m2 Mark Win Other [facility] Other 04-30-2023 14:00-0400 Body weight 42.64 kg Mark Win Other [facility] Other 04-30-2023 14:00-0400 Diastolic blood pressure 50 mm[Hg] Mark Win Other [facility] Other 04-30-2023 14:00-0400 Systolic blood pressure 101 mm[Hg] Mark Win Other [facility] Other 03-12-2023 15:15-0400 Body height 157.48 cm Mark Win Other [facility] Other 03-12-2023 15:15-0400 Body mass index (BMI) [Ratio] 17.01 kg/m2 Mark Win Other [facility] [employer] Other 03-12-2023 15:15-0400 Body weight 42.18 kg Mark Win Other [facility] [employer] Other 03-12-2023 15:15-0400 Diastolic blood pressure 48 mm[Hg] Mark Win Other [facility] [employer] Other 03-12-2023 15:15-0400 Systolic blood pressure 99 mm[Hg] Mark Win Other [facility] [employer] Other 02-12-2023 11:21-0400 Diastolic blood pressure 55 mm[Hg] [employer] Alexia Oleg Work Phone: [facility] 02-12-2023 11:21-0400 Heart rate 63 /min [employer] Alexia Oleg Work Phone: [facility] 02-12-2023 11:21-0400 Respiratory rate 16 /min [employer] Alexia Oleg Work Phone: [facility] 02-12-2023 11:21-0400 SaO2% (BldA) [Mass fraction] 98 % [employer] Alexia Oleg Work Phone: [facility] 02-12-2023 11:21-0400 Systolic blood pressure 126 mm[Hg] [employer]SEM[employer] Alexia Oleg Work Phone: [facility] 02-12-2023 08:04-0400 Body height 157.48 cm [employer] Alexia Oleg Work Phone: [facility] 02-12-2023 08:04-0400 Body temperature 97.6 [degF] [employer] Alexia Oleg Work Phone: [facility] 02-12-2023 08:04-0400 Body weight 42.63 kg [employer]SEM[employer]ER[employer] Alexia Dejesus Work Phone: [facility] 02-01-2023 11:58-0400 Diastolic blood pressure 59 mm[Hg] [employer]SEM[employer]ER[employer] Alexia Oleg Work Phone: [facility] 02-01-2023 11:58-0400 Heart rate 64 /min [employer] Alexia Tuckerault Work Phone: [facility] 02-01-2023 11:58-0400 Respiratory rate 16 /min [employer] Alexia Dejesus Work Phone: [facility] 02-01-2023 11:58-0400 SaO2% (BldA) [Mass fraction] 99 % [employer] Alexia Tuckerault Work Phone: [facility] 02-01-2023 11:58-0400 Systolic blood pressure 125 mm[Hg] [employer] ASSEMBLER[employer] Alexia Dejesus Work Phone: [facility] 02-01-2023 07:42-0400 Body height 157.48 cm [employer] S[employer] ASSEM[employer] Alexia Dejesus Work Phone: [facility] 02-01-2023 07:42-0400 Body temperature 97.7 [degF] [employer] Alexia Dejesus Work Phone: [facility] 02-01-2023 07:42-0400 Body weight 45 kg [employer] S[employer] ASSEM[employer]ER-[employer] Alexia Dejesus Work Phone: [facility] 01-21-2023 09:11-0400 Body height 157.48 cm Alexia Dejesus Work Phone: [facility] DO Work Phone: 01-21-2023 09:11-0400 Body mass index (BMI) [Ratio] 18.38 kg/m2 Alexia Dejesus Work Phone: [facility] DO Work Phone: 01-21-2023 09:11-0400 Body surface area Derived from formula 1.43 m2 Alexia Dejesus Work Phone: [facility] DO Work Phone: 01-21-2023 09:11-0400 Body weight 45.59 kg Alexia Dejesus Work Phone: [facility] DO Work Phone: 01-21-2023 09:11-0400 Diastolic blood pressure 60 mm[Hg] Alexia Dejesus Work Phone: [facility] DO Work Phone: 01-21-2023 09:11-0400 Heart rate 60 /min Alexia Dejesus Work Phone: [facility] DO Work Phone: 01-21-2023 09:11-0400 Systolic blood pressure 110 mm[Hg] Alexia Dejesus Work Phone: [facility] DO Work Phone: 01-01-2023 15:45-0400 Body height 157.48 cm Guy Hudson Other [facility] [employer] Other 01-01-2023 15:45-0400 Body mass index (BMI) [Ratio] 18.84 kg/m2 Guy Hudson Other [facility] Other 01-01-2023 15:45-0400 Body weight 46.72 kg Guy Hudson Other [facility] Other 01-01-2023 15:45-0400 Diastolic blood pressure 74 mm[Hg] Guy Hudson Other [facility] Other 01-01-2023 15:45-0400 Systolic blood pressure 132 mm[Hg] Guy Oconnellfideliaprateek Other [facility] [employer] Other 12-12-2022 16:05-0500 Diastolic blood pressure 83 mm[Hg] [facility] 12-12-2022 16:05-0500 Heart rate 60 /min [facility] 12-12-2022 16:05-0500 Respiratory rate 20 /min [facility] 12-12-2022 16:05-0500 SaO2% (BldA) [Mass fraction] 97 % [facility] 12-12-2022 16:05-0500 Systolic blood pressure 137 mm[Hg] [facility] 12-12-2022 13:25-0500 Body height 157.48 cm [facility] 12-12-2022 13:25-0500 Body temperature 97.8 [degF] [facility] 12-12-2022 13:25-0500 Body weight 47 kg [facility] 12-04-2022 14:15-0500 Body height 157.48 cm Mark Win Other [facility] [employer] Other 12-04-2022 14:15-0500 Body mass index (BMI) [Ratio] 18.65 kg/m2 Mark Win Other [facility] Other 12-04-2022 14:15-0500 Body weight 46.27 kg Mark Win Other [facility] Other 12-04-2022 14:15-0500 Diastolic blood pressure 60 mm[Hg] Mark Win Other [facility] Other 12-04-2022 14:15-0500 Systolic blood pressure 128 mm[Hg] Mark Win Other [facility] Other 11-29-2022 13:00-0500 Body height 157.48 cm Alexia Dejesus Other [facility] Other 11-29-2022 13:00-0500 Body mass index (BMI) [Ratio] 18.47 kg/m2 Alexia Tuckerault Other [facility] Other 11-29-2022 13:00-0500 Body temperature 97.8 [degF] Alexia Tuckerault Other [facility] Other 11-29-2022 13:00-0500 Body weight 45.81 kg Alexia Tuckerault Other [facility] Other 11-29-2022 13:00-0500 Diastolic blood pressure 70 mm[Hg] Alexia Tuckerault Other [facility] Other 11-29-2022 13:00-0500 Respiratory rate 18 /min Alexia Tuckerault Other [facility] Other 11-29-2022 13:00-0500 SaO2% (BldA) [Mass fraction] 99 % Alexia Tuckerault Other [facility] Other 11-29-2022 13:00-0500 Systolic blood pressure 138 mm[Hg] Alexia Tuckerault Other [facility] Other 11-14-2022 02:08-0500 Diastolic blood pressure 75 mm[Hg] [facility] 11-14-2022 02:08-0500 Heart rate 56 /min [facility] 11-14-2022 02:08-0500 Respiratory rate 18 /min [facility] 11-14-2022 02:08-0500 SaO2% (BldA) [Mass fraction] 100 % [facility] 11-14-2022 02:08-0500 Systolic blood pressure 135 mm[Hg] [facility] 11-13-2022 23:25-0500 Body height 157.48 cm [facility] 11-13-2022 23:25-0500 Body temperature 97.5 [degF] [facility] 11-13-2022 23:25-0500 Body weight 48.55 kg [facility] 10-30-2022 15:26-0500 Blood Pressure Location Zina DAVIS [facility] 10-30-2022 15:26-0500 Diastolic blood pressure 72 mm[Hg] Zina DAVIS [facility] 10-30-2022 15:26-0500 Systolic blood pressure 115 mm[Hg] Zina DAVIS [facility] 10-26-2022 15:40-0500 Body height 157.48 cm Arely Dasilva Other [facility] [employer] Other 10-26-2022 15:40-0500 Body mass index (BMI) [Ratio] 18.87 kg/m2 Arely Dasilva Other [facility] [employer] Other 10-26-2022 15:40-0500 Body temperature 97.4 [degF] Arely Dasilva Other [facility] Other 10-26-2022 15:40-0500 Body weight 46.81 kg Arely Dasilva Other [facility] Other 10-26-2022 15:40-0500 Diastolic blood pressure 57 mm[Hg] Arely Dasilva Other [facility] Other 10-26-2022 15:40-0500 Respiratory rate 18 /min Arely Dasilva Other [facility] Other 10-26-2022 15:40-0500 SaO2% (BldA) [Mass fraction] 98 % Arely Dasilva Other [facility] Other 10-26-2022 15:40-0500 Systolic blood pressure 126 mm[Hg] Arely Dasilva Other [facility] Other 10-08-2022 14:00-0500 Body height 157.48 cm Alexia Oleg Other [facility] Other 10-08-2022 14:00-0500 Body mass index (BMI) [Ratio] 19.17 kg/m2 Alexia Tuckerault Other [facility] Other 10-08-2022 14:00-0500 Body temperature 97.6 [degF] Alexia Oleg Other [facility] Other 10-08-2022 14:00-0500 Body weight 47.54 kg Alexia Oleg Other [facility] Other 10-08-2022 14:00-0500 Diastolic blood pressure 52 mm[Hg] Alexia Oleg Other [facility] Other 10-08-2022 14:00-0500 Respiratory rate 18 /min Alexia Oleg Other [facility] Other 10-08-2022 14:00-0500 SaO2% (BldA) [Mass fraction] 98 % Alexia Tuckerault Other [facility] Other 10-08-2022 14:00-0500 Systolic blood pressure 111 mm[Hg] Alexia Tuckerault Other [facility] Other 09-25-2022 10:15-0500 Body height 157.48 cm Janelle Hernandez Other [facility] Other 09-21-2022 00:49-0500 Diastolic blood pressure 71 mm[Hg] [facility] 09-21-2022 00:49-0500 Heart rate 66 /min [facility] 09-21-2022 00:49-0500 Respiratory rate 16 /min [facility] 09-21-2022 00:49-0500 SaO2% (BldA) [Mass fraction] 98 % [facility] 09-21-2022 00:49-0500 Systolic blood pressure 169 mm[Hg] [facility] 09-20-2022 20:22-0500 Body height 157.48 cm [facility] 09-20-2022 20:22-0500 Body temperature 98.1 [degF] [facility] 09-20-2022 20:22-0500 Body weight 46.9 kg [facility] 08-09-2022 16:30-0400 Body height 157.48 cm Alexia Oleg Other [facility] Other 08-09-2022 16:30-0400 Body mass index (BMI) [Ratio] 18.65 kg/m2 Alexia Oleg Other [facility] Other 08-09-2022 16:30-0400 Body temperature 97.5 [degF] Alexia Dejesus Other [facility] Other 08-09-2022 16:30-0400 Body weight 46.27 kg Alexia Dejesus Other [facility] Other 08-09-2022 16:30-0400 Diastolic blood pressure 58 mm[Hg] Alexia Tuckerault Other [facility] Other 08-09-2022 16:30-0400 Respiratory rate 16 /min Alexia Dejesus Other [facility] Other 08-09-2022 16:30-0400 SaO2% (BldA) [Mass fraction] 97 % Alexia Tuckerault Other [facility] Other 08-09-2022 16:30-0400 Systolic blood pressure 114 mm[Hg] Alexia Tuckerault Other [facility] Other 07-23-2022 16:00-0400 Body height 157.48 cm Alexia Tuckerault Other [facility] Other 07-23-2022 16:00-0400 Body mass index (BMI) [Ratio] 18.65 kg/m2 Alexia Tuckerault Other [facility] Other 07-23-2022 16:00-0400 Body temperature 97.7 [degF] Alexia Tuckerault Other [facility] Other 07-23-2022 16:00-0400 Body weight 46.27 kg Alexia Tuckerault Other [facility] Other 07-23-2022 16:00-0400 Diastolic blood pressure 49 mm[Hg] Alexia Dejesus Other [facility] Other 07-23-2022 16:00-0400 Respiratory rate 18 /min Alexia Dejesus Other [facility] Other 07-23-2022 16:00-0400 SaO2% (BldA) [Mass fraction] 99 % Alexia Dejesus Other [facility] Other 07-23-2022 16:00-0400 Systolic blood pressure 99 mm[Hg] Alexia Dejesus Other [facility] Other 07-16-2022 11:00-0400 Body height 157.48 cm Alexia Dejesus Other [facility] Other 07-16-2022 11:00-0400 Body mass index (BMI) [Ratio] 19.2 kg/m2 Alexia Dejesus Other [facility] Other 07-16-2022 11:00-0400 Body temperature 97.8 [degF] Alexia Dejesus Other [facility] Other 07-16-2022 11:00-0400 Body weight 47.63 kg Alexia Dejesus Other [facility] Other 07-16-2022 11:00-0400 Diastolic blood pressure 58 mm[Hg] Alexia Dejesus Other [facility] Other 07-16-2022 11:00-0400 Respiratory rate 18 /min Alexia Dejesus Other [facility] Other 07-16-2022 11:00-0400 SaO2% (BldA) [Mass fraction] 98 % Alexia Dejesus Other [facility] [employer] Other 07-16-2022 11:00-0400 Systolic blood pressure 113 mm[Hg] Alexia Dejesus Other [facility] [employer] Other 07-14-2022 19:45-0400 Diastolic blood pressure 55 mm[Hg] MD Benny Vick Work Phone: [facility] 07-14-2022 19:45-0400 Heart rate 59 /min MD Benny Vick Work Phone: [facility] 07-14-2022 19:45-0400 Respiratory rate 18 /min MD Benny Vick Work Phone: [facility] 07-14-2022 19:45-0400 SaO2% (BldA) [Mass fraction] 98 % MD Benny Vick Work Phone: [facility] 07-14-2022 19:45-0400 Systolic blood pressure 110 mm[Hg] MD Benny Vick Work Phone: [facility] 07-14-2022 17:32-0400 Body height 157.48 cm MD Benny Vick Work Phone: [facility] 07-14-2022 17:32-0400 Body temperature 97.3 [degF] MD Benny Vick Work Phone: [facility] 07-14-2022 17:32-0400 Body weight 46.26 kg MD Benny Vick Work Phone: [facility] 07-14-2022 11:33-0400 Body temperature 97.2 [degF] MD Benny Vick Work Phone: [facility] 07-14-2022 11:33-0400 Diastolic blood pressure 58 mm[Hg] MD Benny Vick Work Phone: [facility] 07-14-2022 11:33-0400 Heart rate 65 /min MD Benny Vick Work Phone: [facility] 07-14-2022 11:33-0400 Respiratory rate 20 /min MD Benny Vick Work Phone: [facility] 07-14-2022 11:33-0400 SaO2% (BldA) [Mass fraction] 99 % MD Benny Vick Work Phone: [facility] 07-14-2022 11:33-0400 Systolic blood pressure 102 mm[Hg] MD Benny Vick Work Phone: [facility] 07-14-2022 06:26-0400 Body height 157.48 cm MD Benny Vick Work Phone: [facility] 07-14-2022 06:26-0400 Body temperature 97.6 [degF] MD Benny Vick Work Phone: [facility] 07-14-2022 06:26-0400 Body weight 45.7 kg MD Benny Vick Work Phone: [facility] 07-14-2022 06:26-0400 Diastolic blood pressure 62 mm[Hg] MD Benny Vick Work Phone: [facility] 07-14-2022 06:26-0400 Heart rate 65 /min MD Benny Vick Work Phone: [facility] 07-14-2022 06:26-0400 Respiratory rate 18 /min MD Benny Vick Work Phone: [facility] 07-14-2022 06:26-0400 SaO2% (BldA) [Mass fraction] 97 % MD Benny Vick Work Phone: [facility] 07-14-2022 06:26-0400 Systolic blood pressure 150 mm[Hg] MD Benny Vick Work Phone: [facility] 07-09-2022 15:00-0400 Body height 157.48 cm Alexia Dejesus Other [facility] Other 07-09-2022 15:00-0400 Body mass index (BMI) [Ratio] 19.2 kg/m2 Alexia Dejesus Other [facility] Other 07-09-2022 15:00-0400 Body temperature 98 [degF] Alexia Dejesus Other [facility] Other 07-09-2022 15:00-0400 Body weight 47.63 kg Alexia Dejesus Other [facility] Other 07-09-2022 15:00-0400 Diastolic blood pressure 55 mm[Hg] Alexia Dejesus Other [facility] Other 07-09-2022 15:00-0400 Respiratory rate 18 /min Alexia Dejesus Other [facility] Other 07-09-2022 15:00-0400 SaO2% (BldA) [Mass fraction] 98 % Alexia Dejesus Other [facility] Other 07-09-2022 15:00-0400 Systolic blood pressure 126 mm[Hg] Alexia Dejesus Other [facility] Other 06-29-2022 12:00-0400 84 1 Benny Vick Work Phone: [facility] DO Work Phone: Comment on above: [id number] 06-20-2022 23:29-0400 Heart rate 60 /min MD Benny Vick Work Phone: [facility] 06-20-2022 21:28-0400 Body height 157.48 cm MD Benny Vick Work Phone: [facility] 06-20-2022 21:28-0400 Body temperature 97.6 [degF] MD Benny Vick Work Phone: [facility] 06-20-2022 21:28-0400 Body weight 48.6 kg MD Benny Vick Work Phone: [facility] 06-20-2022 21:28-0400 Diastolic blood pressure 79 mm[Hg] MD Benny Vick Work Phone: [facility] 06-20-2022 21:28-0400 Respiratory rate 20 /min MD Benny Vick Work Phone: [facility] 06-20-2022 21:28-0400 SaO2% (BldA) [Mass fraction] 97 % MD Benny Vick Work Phone: [facility] 06-20-2022 21:28-0400 Systolic blood pressure 195 mm[Hg] MD Benny Vick Work Phone: [facility] 06-11-2022 22:11-0400 Heart rate 64 /min MD Benny Vick Work Phone: [facility] 06-11-2022 21:55-0400 Body height 157.48 cm MD Benny Vick Work Phone: [facility] 06-11-2022 21:55-0400 Body temperature 97.6 [degF] MD Benny Vick Work Phone: [facility] 06-11-2022 21:55-0400 Body weight 48.08 kg MD Benny Vick Work Phone: [facility] 06-11-2022 21:55-0400 Diastolic blood pressure 82 mm[Hg] MD Benny Vick Work Phone: [facility] 06-11-2022 21:55-0400 Respiratory rate 18 /min MD Benny Vick Work Phone: [facility] 06-11-2022 21:55-0400 SaO2% (BldA) [Mass fraction] 96 % MD Benny Vick Work Phone: [facility] 06-11-2022 21:55-0400 Systolic blood pressure 121 mm[Hg] MD Benny Vick Work Phone: [facility] 05-29-2022 15:06-0400 Body height 157.48 cm Benny Parekherer Work Phone: [facility] DO Work Phone: 05-29-2022 15:06-0400 Body mass index (BMI) [Ratio] 19.57 kg/m2 Benny Ivey Izabellaerer Work Phone: [facility] DO Work Phone: 05-29-2022 15:06-0400 Body surface area Derived from formula 1.47 m2 Benny Ivey Izabellaerer Work Phone: [facility] DO Work Phone: 05-29-2022 15:06-0400 Body weight 48.54 kg Benny Ivey Izabellaerer Work Phone: [facility] DO Work Phone: 05-29-2022 15:06-0400 Diastolic blood pressure 62 mm[Hg] Benny Ivey Naderer Work Phone: [facility] DO Work Phone: 05-29-2022 15:06-0400 Heart rate 62 /min Benny Parekherer Work Phone: [facility] DO Work Phone: 05-29-2022 15:06-0400 Systolic blood pressure 130 mm[Hg] Benny A Naderer Work Phone: [facility] DO Work Phone: 05-11-2022 14:55-0400 Body height 157.48 cm Arely Dasilva Other [facility] Other 05-11-2022 14:55-0400 Body mass index (BMI) [Ratio] 19.86 kg/m2 Arely Dasilva Other [facility] Other 05-11-2022 14:55-0400 Body temperature 97.1 [degF] Arely Dasilva Other [facility] Other 05-11-2022 14:55-0400 Body weight 49.26 kg Arely Dasilva Other [facility] Other 05-11-2022 14:55-0400 Diastolic blood pressure 58 mm[Hg] Arely Dasilva Other [facility] Other 05-11-2022 14:55-0400 Respiratory rate 18 /min Arely Pateler Other [facility] Other 05-11-2022 14:55-0400 SaO2% (BldA) [Mass fraction] 98 % Arely Dasilva Other [facility] Other 05-11-2022 14:55-0400 Systolic blood pressure 112 mm[Hg] Arely Dasilva Other [facility] Other 04-18-2022 14:27-0400 Body height 157.48 cm Benny A Naderer Work Phone: [facility] DO Work Phone: 04-18-2022 14:27-0400 Body mass index (BMI) [Ratio] 19.94 kg/m2 Benny Parekherer Work Phone: [facility] DO Work Phone: 04-18-2022 14:27-0400 Body surface area Derived from formula 1.48 m2 Benny Parekherer Work Phone: [facility] DO Work Phone: 04-18-2022 14:27-0400 Body weight 49.44 kg Benny Parekherer Work Phone: [facility] DO Work Phone: 04-18-2022 14:27-0400 Diastolic blood pressure 68 mm[Hg] Benny Parekherer Work Phone: [facility] DO Work Phone: 04-18-2022 14:27-0400 Heart rate 56 /min Benny Parekherer Work Phone: [facility] DO Work Phone: 04-18-2022 14:27-0400 Systolic blood pressure 132 mm[Hg] [facility] Work [facility]: 04-14-2022 19:00-0400 Diastolic blood pressure 70 mm[Hg] MD Benny Vick Work Phone: [facility] 04-14-2022 19:00-0400 Heart rate 60 /min MD Benny Vick Work Phone: [facility] 04-14-2022 19:00-0400 Respiratory rate 18 /min MD Benny Vick Work Phone: [facility] 04-14-2022 19:00-0400 SaO2% (BldA) [Mass fraction] 99 % MD Benny Vick Work Phone: [facility] 04-14-2022 19:00-0400 Systolic blood pressure 130 mm[Hg] MD Benny Vick Work Phone: [facility] 04-14-2022 16:43-0400 Body temperature 97.5 [degF] MD Benny Vick Work Phone: [facility] 04-14-2022 16:42-0400 Body height 157.48 cm MD Benny Vick Work Phone: [facility] 04-14-2022 16:42-0400 Body mass index (BMI) [Ratio] 19.7 kg/m2 MD Benny Vick Work Phone: [facility] 04-14-2022 16:42-0400 Body weight 48.98 kg MD Benny Vick Work Phone: [facility] 01-07-2022 12:30-0400 Body height 157.48 cm Alexia Dejesus Other [facility] Other 01-07-2022 12:30-0400 Body mass index (BMI) [Ratio] 20.23 kg/m2 Alexia Dejesus Other [facility] Other 01-07-2022 12:30-0400 Body temperature 97.6 [degF] Alexia Dejesus Other [facility] Other 01-07-2022 12:30-0400 Body weight 50.17 kg Alexia Dejesus Other [facility] Other 01-07-2022 12:30-0400 Diastolic blood pressure 45 mm[Hg] Alexia Dejesus Other [facility] Other 01-07-2022 12:30-0400 Respiratory rate 18 /min Alexia Dejesus Other [facility] Other 01-07-2022 12:30-0400 SaO2% (BldA) [Mass fraction] 97 % Alexia Dejesus Other [facility] Other 01-07-2022 12:30-0400 Systolic blood pressure 120 mm[Hg] Alexia Dejesus Other [facility] Other 09-22-2021 15:30-0500 Body height 157.48 cm Nitza Javiermond Other [facility] Other 09-22-2021 15:30-0500 Body mass index (BMI) [Ratio] 19.93 kg/m2 Nitza Cerrato Other [facility] Other 09-22-2021 15:30-0500 Body temperature 96.8 [degF] Nitza Cerrato Other [facility] Other 09-22-2021 15:30-0500 Body weight 49.44 kg Nitza aJviermond Other [facility] Other 09-22-2021 15:30-0500 Respiratory rate 18 /min Nitza Javiermond Other [facility] Other 09-22-2021 15:30-0500 SaO2% (BldA) [Mass fraction] 98 % Nitza Javiermond Other [facility] Other 07-19-2021 13:56-0400 Body height 157.48 cm Benny Valdez Phone: [facility] DO Work Phone: 07-19-2021 13:56-0400 Body mass index (BMI) [Ratio] 20.27 kg/m2 Benny Parekherer Work Phone: [facility] DO Work Phone: 07-19-2021 13:56-0400 Body surface area Derived from formula 1.49 m2 Benny Parekherer Work Phone: [facility] [employer] 250 DO Work Phone: 07-19-2021 13:56-0400 Body weight 50.26 kg Benny Parekherer Work Phone: [facility] DO Work Phone: 07-19-2021 13:56-0400 Diastolic blood pressure 78 mm[Hg] Benny Parekherer Work Phone: [facility] [employer] [facility] DO Work Phone: 07-19-2021 13:56-0400 Heart rate 64 /min Benny Parekherer Work Phone: [facility] 250 DO Work Phone: 07-19-2021 13:56-0400 Systolic blood pressure 132 mm[Hg] Benny Parekherer Work Phone: [facility] 250 DO Work Phone: Encounters Encounter Date Encounter Type Care Provider Facility Start: 11-04-2023 ambulatory Zina Mitchell ty:RACHEL Mojica Start: 09-17-2023 End: 09-17-2023 ambulatory ELOISE FRAUSTO Not Available Start: 08-23-2023 End: 08-24-2023 Emergency department patient visit Ricki Sam Facility:[facility] Start: 08-23-2023 End: 08-24-2023 Emergency department patient visit II Wilian Moreno Work Phone: [facility] Work Phone: Start: 05-01-2023 ambulatory Zina Garay RYAN Mitchell ty:RACHEL PottsSilver Start: 04-30-2023 End: 04-30-2023 ambulatory Mark Quirino Other [facility] Other Start: 04-30-2023 Office outpatient visit 15 minutes Mark Win [facility] Start: 03-27-2023 End: 03-27-2023 ambulatory Mark Jenkinsormack Other [facility] Other Start: 03-27-2023 Telephone encounter Mark bello [facility] Start: 03-21-2023 End: 03-22-2023 ambulatory [place] DEJESUS Facility:[facility] Start: 03-19-2023 End: 03-19-2023 ambulatory Mark Win Other [facility] Other Start: 03-19-2023 Telephone encounter Mark Jenkinsramírezuche bello [facility] Start: 03-13-2023 End: 03-14-2023 ambulatory [place] DEJESUS Facility:[facility] Start: 03-12-2023 End: 03-12-2023 ambulatory Mark Win Other [facility] Other Start: 03-12-2023 Office outpatient visit 15 minutes Mark Jenkinsormack [facility] Start: 03-07-2023 End: 03-07-[address] DOCTOR RAMIREZ Facility: Start: 02-22-2023 End: 02-22-2023 ambulatory Janelle Hernandez Other [facility] Other Start: 02-22-2023 Telephone encounter Janelle Hernandez [facility] Start: 02-20-2023 End: 02-20-2023 ambulatory Mark Win Other [facility] Other Start: 02-20-2023 Telephone encounter Mark Jimenez ace [facility] Start: 02-14-2023 End: 02-14-2023 ambulatory Mark Win Other [facility] Other Start: 02-14-2023 Telephone encounter Mark Jimenez ace [facility] Start: 02-12-2023 End: 02-12-2023 ambulatory Alexia Oleg Facility:[facility] Start: 02-12-2023 End: 02-12-2023 Admission to same day surgery center [employer]-C Alexia Dejesus Work Phone: [facility] Work Phone: Start: 02-12-2023 End: 02-12-2023 ambulatory P[employer] SOCKET ASSEMBLER-C Alexia Dejesus Work Phone: [facility] Work Phone: Start: 02-07-2023 End: 02-07-2023 ambulatory Makr Win Other [place] [employer] Other Start: 02-07-2023 Telephone encounter Mark Jimenez [facility] Start: 02-01-2023 ambulatory Ms. Alexia Noland Oleg Facility:[id number] Start: 02-01-2023 [facility], Provider: Rory Rosas, Status: Pen, Time: 9:00 AM Alexia Dejesus Work Phone: [facility] 250 DO Work Phone: Start: 02-01-2023 End: 02-01-2023 ambulatory Alexia Dejesus Facility:[facility] Start: 02-01-2023 End: 02-01-2023 Admission to same day surgery center P[employer] SOCKET ASSEMBLER-C Alexia Dejesus Work Phone: [facility] Usher Work Phone: Start: 02-01-2023 End: 02-01-2023 ambulatory P[employer] SOCKET ASSEMBLER-C Alexia Dejesus Work Phone: [facility] Work Phone: Start: 01-30-2023 Chart Update Alexia Herring noemi Work Phone: [facility] 250 DO Work Phone: Start: 01-30-2023 End: 01-30-2023 ambulatory Alexia Dejesus Facility:[facility] Start: 01-30-2023 End: 01-30-2023 ambulatory [employer] SOCKET ASSEM[employer]ER-C Alexiacuco Dejesus Work Phone: [facility] Work Phone: Start: 01-30-2023 End: 01-30-2023 Patient encounter procedure P[employer] SOCKET ASSEMBLER-C Alexia Dejesus Work Phone: [facility] Work Phone: Start: 01-25-2023 End: 01-25-2023 Lab Drop off ALEXIA DEJESUS [facility] Start: 01-25-2023 End: 01-26-2023 ambulatory [place] DEJESUS Facility:[facility] Start: 01-22-2023 Telephone encounter Mark Jimenez [facility] Gastroenter[facility] Start: 01-22-2023 End: 01-23-2023 ambulatory [place] DEJEUSS [facility] [employer] Other Start: 01-21-2023 Office outpatient visit 25 minutes Alexia Dejesus Work Phone: [facility] 250 DO Work Phone: Start: 01-21-2023 ambulatory Avelino Berry Facility:[id number] Start: 01-19-2023 End: 01-20-2023 ambulatory MAYTE Dumont Facility:[facility] Start: 01-11-2023 End: 01-11-[address] GLORIA FLAHERTY . Facility:[facility] Start: 01-01-2023 End: 01-01-2023 ambulatory Guy Hudson Other [facility] Other Start: 01-01-2023 Office outpatient visit 15 minutes Guy Hudson [facility] Start: 12-26-2022 End: 12-26-2022 ambulatory Mark Win Other [facility] Other Start: 12-26-2022 Telephone encounter Mark bello [facility] Start: 12-21-2022 End: 12-22-[address] Ghulam WIN Facility:[facility] Start: 12-20-2022 End: 12-20-2022 ambulatory Alexia Dejesus Other [facility] Other Start: 12-20-2022 Telephone encounter Alexiacuco harrison [facility] Start: 12-17-2022 End: 12-17-2022 ambulatory Alexia Dejesus Facility:[facility] Start: 12-17-2022 End: 12-17-2022 ambulatory [facility] ST[facility]FF [facility] Work Phone: Start: 12-17-2022 End: 12-17-2022 Patient encounter procedure [facility] [place] Work Phone: Start: 12-12-2022 End: 12-12-2022 Emergency department patient visit Alexiacuco Dejesus Facility:[facility] Start: 12-12-2022 End: 12-12-2022 Emergency department patient visit [facility] Work Phone: Start: 12-11-2022 End: 12-11-2022 ambulatory Alexia Dejesus Other [facility] Other Start: 12-11-2022 Telephone encounter Alexiacuco Kwonl t [facility] Start: 12-04-2022 End: 12-04-2022 ambulatory Alexia Dejesus Other [facility] Other Start: 12-04-2022 Office outpatient visit 25 minutes Mark Jenkinsormack [facility] G[facility] Start: 12-04-2022 Telephone encounter Alexiacuco Kwonl t [facility] Start: 11-29-2022 End: 11-29-2022 ambulatory Alexia Dejesus Other [facility] Other Start: 11-29-2022 Office outpatient visit 15 minutes Alexia Dejesus [facility] Start: 11-14-2022 End: 11-14-2022 Emergency department patient visit Alexia Dejesus Facility:[facility] Start: 11-13-2022 End: 11-14-2022 Emergency department patient visit [facility] Work Phone: Start: 11-10-2022 End: 11-10-2022 ambulatory Alexia Dejesus Other [facility] Other Start: 11-10-2022 Telephone encounter Alexiacuco Kwonl t [facility] Start: 11-05-2022 End: 11-05-2022 ambulatory Alexia Dejesus Other [facility] Other Start: 11-05-2022 Telephone encounter Alexiacuco Kwonl t [facility] Start: 11-03-2022 End: 11-03-2022 ambulatory ALEXIA DEJESUS Facility: Start: 10-30-2022 End: 10-31-2022 ambulatory Zina DAVIS Facility: [facility] Start: 10-30-2022 End: 10-30-2022 Patient encounter procedure Zina DAVIS [facility] [place] Start: 10-29-2022 End: 10-29-2022 ambulatory Alexia Tuckerault Facility:[facility] Start: 10-29-2022 End: 10-29-2022 ambulatory NON STAFF [facility] Work Phone: Start: 10-29-2022 End: 10-29-2022 Patient encounter procedure [facility] [place] Work Phone: Start: 10-28-2022 End: 10-28-2022 ambulatory Arely Dasilva Other [facility] Other Start: 10-28-2022 Telephone encounter Arely Dasilva [facility] [address] Start: 10-26-2022 End: 10-26-2022 ambulatory Arely Dasilva Facility:[facility] Start: 10-26-2022 End: 10-26-2022 Departed Referred [facility] [place] Work Phone: Start: 10-26-2022 End: 10-26-2022 ambulatory NON STAFF [facility] Work Phone: Start: 10-26-2022 Office outpatient visit 15 minutes Arely Dasilva [facility] Start: 10-26-2022 Telephone encounter Alexia Breaul t [facility] Start: 10-19-2022 End: 10-19-2022 ambulatory Alexia Oleg Other [facility] Other Start: 10-19-2022 Telephone encounter Alexia Breaul t [facility] Start: 10-10-2022 End: 10-10-2022 ambulatory Alexia Oleg Other [facility] Other Start: 10-10-2022 Telephone encounter Alexia Breaul t [facility] Start: 10-08-2022 End: 10-08-2022 ambulatory Alexia Oleg Facility:[facility] Start: 10-08-2022 Office outpatient visit 15 minutes Alexia Oleg [facility] Start: 10-08-2022 End: 10-08-2022 ambulatory NON STAFF [facility] Work Phone: Start: 10-08-2022 End: 10-08-2022 Departed Referred [facility] [place] Work Phone: Start: 09-25-2022 (Chain Dyer) Chain Dyer [facility] Start: 09-25-2022 End: 11-15-2022 ambulatory Alexia Oleg [facility] [employer] Other Start: 09-25-2022 Registered [facility] Work Phone: Start: 09-20-2022 End: 09-21-2022 Emergency department patient visit Maico Maxwell HeckCarranza Facility:[facility] Start: 09-20-2022 End: 09-21-2022 Emergency department patient visit [facility] Start: 09-20-2022 End: 09-20-2022 ambulatory Alexia Oleg Other [facility] Other Start: 09-20-2022 Telephone encounter Alexiacuco Kwonl t [facility] Start: 09-11-2022 End: 09-12-2022 ambulatory ALEXIA OLEG Facility:[facility] Start: 09-02-2022 End: 09-02-2022 ambulatory ALEXIA OLEG Facility:[facility] Start: 08-20-2022 End: 08-20-2022 ambulatory Alexia Oleg Other [facility] Other Start: 08-20-2022 Telephone encounter Alexiacuco Kwonl t [facility] Start: 08-09-2022 End: 08-09-2022 ambulatory Alexia Oleg Other [facility] Other Start: 08-09-2022 Office outpatient visit 25 minutes Alexia Dejesus [facility] Start: 08-02-2022 End: 08-02-2022 ambulatory Alexia Oleg Other [facility] Other Start: 08-02-2022 Telephone encounter Alexia Breaul t [facility] Start: 07-27-2022 End: 07-27-2022 ambulatory Alexia Oleg Other [facility] Other Start: 07-27-2022 Telephone encounter Alexia Breaul t [facility] Start: 07-26-2022 End: 07-26-2022 Patient encounter procedure LAWRENCE MERCADO [facility] Start: 07-24-2022 End: 07-24-[address] PRIMITIVO HOPKINS . [place] [employer] Other Start: 07-24-2022 Telephone encounter Alexia Breaul t [facility] Start: 07-23-2022 End: 07-23-2022 ambulatory Alexia Oleg Other [facility] Other Start: 07-23-2022 Office outpatient visit 25 minutes Alexia Oleg [facility] Start: 07-19-2022 End: 07-19-2022 ambulatory Alexia Oleg Other [facility] Other Start: 07-19-2022 Telephone encounter Alexia Breaul t [facility] Start: 07-18-2022 End: 07-18-2022 ambulatory Alexia Oleg Other [facility] Other Start: 07-18-2022 Telephone encounter Alexia Breaul t [facility] Start: 07-17-2022 End: 07-17-2022 ambulatory Alexia Oleg Other [facility] Other Start: 07-17-2022 Telephone encounter Alexia harrison [facility] Start: 07-16-2022 Office outpatient visit 15 minutes Alexia Dejesus [facility] Start: 07-16-2022 Telephone encounter Alexia harrison [facility] Start: 07-16-2022 End: 07-16-2022 ambulatory MD Benny Vick Work Phone: [facility] Other Start: 07-16-2022 End: 07-16-2022 Departed Referred MD Benny Vick Work Phone: [facility] [place] Start: 07-15-2022 End: 07-15-2022 ambulatory Alexia Dejesus Other [facility] Other Start: 07-15-2022 Telephone encounter Alexia harrison [facility] Start: 07-14-2022 End: 07-14-2022 Emergency department patient visit MD Benny Vick Work Phone: [facility] Start: 07-14-2022 End: 07-14-2022 Evaluation and management of inpatient MD Benny Vick Work Phone: [facility] Start: 07-14-2022 End: 07-14-2022 observation encounter MD Benny Vick Work Phone: [facility] Work Phone: Start: 07-12-2022 End: 07-12-2022 ambulatory Alexia Dejesus Other [facility] Other Start: 07-12-2022 Telephone encounter Alexia harrison [facility] Start: 07-09-2022 End: 07-10-2022 ambulatory ALEXIA DEJESUS [facility] [employer] Other Start: 07-09-2022 Office outpatient visit 15 minutes Alexia Dejesus [facility] [place] Start: 07-05-2022 Chart Update Benny Vick Work Phone: [facility] 250 DO Work Phone: Start: 06-29-2022 ambulatory Ms. Avelino Berry Facilit [id number] Start: 06-22-2022 Telephone encounter Benny serrato Work Phone: [facility] 250 DO Work Phone: Start: 06-20-2022 End: 06-20-2022 Emergency department patient visit MD Benny Vick Work Phone: [facility] Start: 06-19-2022 End: 06-19-[address] BENNY VICK Facility:[facility] Start: 06-13-2022 End: 06-14-[address] NISHA BERRY Facility:[facility] Start: 06-12-2022 End: 06-13-2022 ambulatory SHAIKH Jennifer GALLARDO Facility:[facility] Start: 06-11-2022 End: 06-12-2022 Emergency department patient visit MD Benny Vick Work Phone: [facility] Start: 05-29-2022 ambulatory Avelino Berry Facility:[id number] Start: 05-16-2022 Telephone encounter [facility]errato [facility] Work Phone: Start: 05-13-2022 End: 05-13-2022 ambulatory Arely Dasilva Other [facility] Other Start: 05-13-2022 Telephone encounter Arely Dasilva [facility] Start: 05-11-2022 End: 05-11-2022 Departed Referred MD Benny Vick Work Phone: [facility] [place] Start: 05-11-2022 End: 05-11-2022 ambulatory Arely Dasilva Other [facility] Other Start: 05-11-2022 Office outpatient visit 15 minutes Arely Dasilva [facility] Start: 04-18-2022 Office outpatient visit 15 minutes Benny A Naderer Work Phone: [facility] [employer] 250 DO Work Phone: Start: 04-18-2022 ambulatory Avelino Berry Facility:[id number] Start: 04-14-2022 End: 04-14-2022 Emergency department patient visit MD Benny Vick Work Phone: [facility] Start: 03-28-2022 End: 03-29-[address] CAMRYN CORBIN Facility: Start: 01-07-2022 End: 01-07-2022 ambulatory Alexia Dejesus Other [facility] Other Start: 01-07-2022 Office outpatient visit 15 minutes Alexia Dejesus [facility] Start: 09-22-2021 (URG) Urgent Care Visit Nitza Cerrato [facility] Start: 09-22-2021 End: 09-22-2021 ambulatory Nitza Cerrato Other [facility] Other Start: 07-19-2021 Office consultation new/estab patient 60 min Benny A Naderer Work Phone: [facility] 250 DO Work Phone: Start: 07-19-2021 Office outpatient ne w 45 minutes Benny A Naderer Work Phone: [facility] 250 DO Work Phone: Procedures Date Procedure Procedure Detail Performing Clinician Start: 02-12-2023 Esophagogastroduodenoscopy P[employer] SOCKET ASSEMBLER-C Frank Dejesus Work Phone: Start: 02-01-2023 [facility] Angio PULL SOCKET ASSEMBLER-C Alexia Dejesus Work Phone: Start: 12-17-2022 Lactoferrin measurement Start: 12-12-2022 Plain chest X-ray Start: 11-14-2022 Plain chest X-ray Start: 10-30-2022 Cystourethroscopy with dilation of urethral stricture Zina DAVIS Start: 10-29-2022 Pelvic echography Start: 10-26-2022 Urine culture Start: 10-08-2022 Urine culture Start: 09-20-2022 Computed tomography of abdomen and pelvis with contrast Start: 09-20-2022 Urine culture Start: 07-16-2022 Urine culture Start: 07-14-2022 SARS Antigen (LFIA) MD Benny Vick Work Phone: Start: 07-14-2022 CT of head without contrast MD Benny brito Work Phone: Start: 07-14-2022 CT of abdomen and pelvis without contrast MD Benny Vick Work Phone: Start: 06-20-2022 Diagnostic radiography of abdomen MD Suni Vick Work Phone: Start: 04-14-2022 CT angiography of head MD Benny Vick Work Phone: Start: 04-14-2022 CT angiography of neck vessels MD Benny walsh Work Phone: Start: 04-14-2022 CT of head without contrast MD Benny brito Work Phone: Start: 04-14-2022 Plain chest X-ray MD Benny Vick Work Phone: Start: 02-16-2020 Cystourethroscopy with dilation of urethral stricture LAWRENCE MERCADO Start: 10-14-2018 Total colonoscopy Benny Vick Work Phone: Start: 07-01-2018 Cystourethroscopy with dilation of urethral stricture Lilo MERCADO Comment on above: 10/26/2014, 06/12/2017 Start: 07-26-2010 Dilation of urethra TERI MERCADO Appendectomy Benny Huir Work Phone: Appendectomy LAWRENCE MERCADO Cholecystectomy Benny Uche Madi er Work Phone: Cholecystectomy LAWRENCE HARRIS Colonoscopy LAWRENCE MERCADO Elbow joint operations Benny Ivey Naderer Work Phone: elbow surgery LAWRENCE MERCADO Hysterectomy Benny Ivey Naderer Work Phone: Hysterectomy LAWRENCE MERCADO neck surgery LAWRENCE MERCADO Procedure on neck Benny Parekh erer Work Phone: Urine culture MD Zapata Korina r Work Phone: Urine culture Plan of Treatment Date Care Activity Detail Author Start: 08-23-2023 Computed tomography of abdomen and pelvis with contrast CT abdomen pelvis w con [facility] Start: 08-23-2023 CT Abdomen and Pelvis W contrast IV [facility] Start: 03-04-2023 FUV, Provider: Avelino Brooks, Status: Pen, Time: 2:00 PM FUV, Provider: Avelino Brooks, Status: Pen, Time: 2:00 PM [facility] 250 DO Work Phone: Start: 02-12-2023 [facility] Start: 02-01-2023 SURGNON, Provider: Rory Rosas, Status: Pen, Time: 9:00 AM SURGNON, Provider: Rory Rosas, Status: Pen, Time: 9:00 AM [facility] Work Phone: Start: 02-01-2023 End: 02-01-2023 [facility] Start: 10-26-2022 Bacteria identified in Urine by Culture Urine Culture [facility] Start: 10-08-2022 Bacteria identified in Urine by Culture Urine Culture [facility] Start: 09-20-2022 Computed tomography of abdomen and pelvis with contrast CT abdomen pelvis w con [facility] Start: 09-20-2022 CT Abdomen and Pelvis W contrast IV [facility] Start: 08-24-2022 FUV, Provider: Rory Rosas, Status: Pen, Time: 3:10 PM FUV, Provider: Rory Rosas, Status: Pen, Time: 3:10 PM [facility] 250 DO Work Phone: Start: 07-14-2022 End: 07-14-2022 [facility] Start: 07-14-2022 Magnesium measurement [facility] Start: 07-14-2022 Hospital admission [facility] Start: 07-14-2022 Physical therapy procedure [facility] Start: 07-14-2022 Referral to occupational therapist [facility] Start: 07-14-2022 CT Abdomen and Pelvis WO contrast [facility] Start: 07-14-2022 CT of abdomen and pelvis without contrast CT abdomen pelvis wo con [facility] Start: 06-29-2022 STRESS NUC, Provider: SILVER HHVI NUCLEAR 01,[id number], Status: Pen, Time: 12:00 PM STRESS NUC, Provider: SILVER HHVI NUCLEAR 01,[id number], Status: Pen, Time: 12:00 PM [facility] Work Phone: Start: 06-20-2022 Diagnostic radiography of abdomen XR abdomen 1V [facility] Start: 06-20-2022 Plain chest X-ray XR chest 1V portable [facility] Start: 06-20-2022 XR Abdomen Single view [facility] Work Phone: Start: 06-20-2022 XR Chest Single view [facility] Work Phone: Start: 06-11-2022 End: 06-12-2022 Emergency department patient visit Departed Emergency [facility] Start: 05-29-2022 FUV, Provider: Avelino Brooks, Status: Pen, Time: 3:00 PM FUV, Provider: Avelino Brooks, Status: Pen, Time: 3:00 PM [facility] 250 DO Work Phone: Start: 03-30-2022 FUV, Provider: Rory Rosas, Status: Pen, Time: 1:20 PM [facility] 250 DO Work Phone: Alanine aminotransfe rase [Enzymatic activity/volume] in Serum or Plasma by No addition of P-5'-P [facility] Work Phone: Albumin [Mass/volume ] in Serum or Plasma [facility] Work Phone: Albumin/Globulin ratio [facility] Work Phone: Alkaline phosphatase [Enzymatic activity/volume] in Serum or Plasma [facility] Work Phone: Anion gap measurement [facility] Work Phone: Aspartate aminotrans ferase [Enzymatic activity/volume] in Serum or Plasma [facility] Work Phone: Bacteria identified in Urine by Culture [facility] Basophil count [facility] Work Phone: Basophil percent differential count [facility] Work Phone: Bilirubin.total [Mass/volume] in Serum or Plasma [facility] Work Phone: Calcium [Mass/volume ] in Serum or Plasma [facility] Work Phone: Calprotectin [Mass/m ass] in Stool [facility] Carbon dioxide, tota l [Moles/volume] in Serum or Plasma [facility] Work Phone: Chloride [Moles/volu me] in Serum or Plasma [facility] Work Phone: Creatinine and Glome rular filtration rate.predicted panel - Serum, Plasma or Blood [facility] Work Phone: Elastase.pancreatic [Mass/mass] in Stool [facility] Eosinophil percent differential count [facility] Work Phone: Eosinophils [#/volum e] in Blood [facility] Work Phone: Erythrocyte mean cor puscular volume determination [facility] Work Phone: Erythrocytes [#/volu me] in Blood [facility] Work Phone: Gliadin peptide+tiss ue transglutaminase IgA+IgG Ab [Presence] in Serum by Immunoassay [facility] Globulin [Mass/volum e] in Serum [facility] Work Phone: Glucose [Mass/volume ] in Serum or Plasma [facility] Work Phone: Hematocrit [Volume F raction] of Blood [facility] Work Phone: Hemoglobin [Mass/vol ume] in Blood [facility] Work Phone: Hemoglobin distribut ion, width determination [facility] Work Phone: Interferon gamma assay [facility] Leukocytes [#/volume ] in Blood [facility] Work Phone: Lymphocyte count [facility] Work Phone: Lymphocyte percent differential count [facility] Work Phone: Magnesium measurement [facility] Work Phone: Mean corpuscular hem oglobin concentration determination [facility] Work Phone: Mean corpuscular hem oglobin determination [facility] Work Phone: Measurement of renal function [facility] Work Phone: Monocyte count [facility] Work Phone: Monocyte percent differential count 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 Work Phone: Neutrophil percent differential count [facility] Work Phone: Osmolality of Unspec ified specimen [facility] Work Phone: Patient Education [facility] Work Phone: Patient referral [facility] Work Phone: Platelet mean volume determination [facility] Work Phone: Platelets [#/volume] in Blood [facility] Work Phone: Potassium [Moles/vol ume] in Serum or Plasma [facility] Work Phone: Protein [Mass/volume ] in Serum or Plasma [facility] Work Phone: Sodium [Moles/volume ] in Serum or Plasma [facility] Work Phone: Sodium [Moles/volume ] in Urine [facility] Work Phone: Thyrotropin [Units/v olume] in Serum or Plasma [facility] Work Phone: Thyroxine (T4) free [Mass/volume] in Serum or Plasma [facility] Work Phone: Urea nitrogen [Mass/ volume] in Serum or Plasma [facility] Work Phone: Immunizations Immunization Date Immunization Notes Care Provider Sidney casas 07-10-2022 Fluzone High-Dose Quadrivalent 0.7 ML Intramuscular Suspension Prefilled Syringe Alexia Dejesus Work Phone: [facility] 250 DO Work Phone: 07-10-2022 influenza virus vaccine, unspecified formulation Zina DAVIS [facility] 07-10-2022 SARS-CoV-2 (COVID-19 ) [id number] Zina DAVIS [facility] 01-15-2022 Comirnaty 30 MCG/0.3 ML Intramuscular Suspension Benny A Naderer Work Phone: [facility] 250 DO Work Phone: 01-15-2022 COVID-19 mRNA, Comirnaty (Pfizer) PULL SOCKET ASSEMBLER-C Alexia Dejesus Work Phone: [facility] 01-15-2022 SARS-CoV-2 mRNA (hkqiazqkbiw-gqwe-tedvj se) vaccine Zina DAVIS [facility] 08-05-2021 Fluzone High-Dose Quadrivalent 0.7 ML Intramuscular Suspension Prefilled Syringe Benny A Naderer Work Phone: [facility] 250 DO Work Phone: 08-05-2021 influenza virus vaccine, unspecified formulation Zina DAVIS [facility] Comment on above: Result Comment: 2022: 80 07-10-2021 Pfizer-BioNTech COVI D-19 Vacc 30 MCG/0.3ML Intramuscular Suspension Benny A Naderer Work Phone: [facility] Comment on above: Result Comment: 2022: 80 06-14-2021 SARS-CoV-2 (COVID-19 ) Ad26 vaccine, recombinant LAWRENCE MERCADO [facility] 12-02-2020 Pfizer-BioNTech COVI D-19 Vacc 30 MCG/0.3ML Intramuscular Suspension Benny A Naderer Work Phone: [facility] Comment on above: Result Comment: 2022: [id number] 11-14-2020 SARS-CoV-2 (COVID-19 ) Ad26 vaccine, recombinant LAWRENCE MERCADO [facility] 11-11-2020 Pfizer-BioNTech COVI D-19 Vacc 30 MCG/0.3ML Intramuscular Suspension Benny A Naderer Work Phone: [facility] Comment on above: Result Comment: 2022: [id number] 10-14-2020 SARS-CoV-2 (COVID-19 ) Ad26 vaccine, recombinant LAWRENCE MERCADO [facility] 07-14-2020 influenza virus vacc ine, unspecified formulation M-Changa [facility] 07-14-2020 influenza, seasonal, injectable Benny A Naderer Work Phone: [facility] 250 DO Work Phone: 07-21-2019 influenza virus vacc ine, unspecified formulation M-Changa [facility] 07-21-2019 influenza, high dose seasonal, preservative-free Benny A Naderer Work Phone: [facility] 250 DO Work Phone: 06-26-2018 influenza virus vacc ine, unspecified formulation Zina [employer] [facility] 06-26-2018 influenza, high dose seasonal, preservative-free Benny A Naderer Work Phone: [place] [address] [place] Work Phone: 09-16-2017 influenza virus vacc ine, unspecified formulation Zina DAVIS [facility] 09-16-2017 influenza, high dose seasonal, preservative-free Benny A Naderer Work Phone: [place] [address] DO Work Phone: 11-26-2016 influenza virus vacc ine, unspecified formulation Zina DAVIS [facility] 11-26-2016 influenza, seasonal, injectable, preservative free Benny A Naderer Work Phone: [place] [address] DO Work Phone: 03-01-2015 pneumococcal conjuga te vaccine, 13 valent Benny A Naderer Work Phone: [facility] 08-07-2013 tetanus toxoid, redu fred diphtheria toxoid, and acellular pertussis vaccine, adsorbed Benny A Naderer Work Phone: [facility] 11-21-2009 novel influenza-H1N1 -09, preservative-free, injectable Benny A Naderer Work Phone: [place] [address] DO Work Phone: 07-15-2006 pneumococcal polysaccharide vaccine, 23 valent Benny A Naderer Work Phone: [facility] Payers Date Payer Category Payer Unknown [id number] 2022 Self-pay [id number] 1958 Medicare [id number] 2. [id number] 1941 Unknown [id number] 2.16.8 40.1.180550.3.579.2.1068 1941 Unknown [id number] 2.16. 840.1.865512.3.579.2.356 1941 Unknown [id number] 2.16. 840.1.640104.3.579.2.356 1941 Unknown [id number] 2.16. 840.1.183292.3.579.2.356 1941 Unknown [id number] 2.16. 840.1.637930.3.579.2.356 1941 Unknown [id number] 2.16.84 0.1.549060.3.579.2.593 1941 Unknown [id number] 2.16.84 0.1.476481.3.579.2.593 1941 Unknown [id number] 2.16.84 0.1.433711.3.579.2.593 194 Unknown [id number] 2.16.84 0.1.623677.3.579.2.593 194 Unknown [id number] 2.16.84 0.1.862497.3.579.2.593 194 Unknown [id number] 2.16.84 0.1.846404.3.579.2.593 194 Unknown [id number] 2.16.84 0.1.415587.3.579.2.593 194 Unknown [id number] 2.16.84 0.1.963923.3.579.2.593 194 Unknown [id number] 2.16.84 0.1.286879.3.579.2.593 194 Unknown [id number] 2.16.84 0.1.617089.3.579.2.593 1941 Unknown [id number] 2.16.84 0.1.446827.3.579.2.593 1941 Unknown [id number] 2.16.84 0.1.740625.3.579.2.593 1941 Unknown [id number] 2.16.84 0.1.868754.3.579.2.593 1941 Unknown [id number] 2.16.8 40.1.134221.3.579.2.727 1941 Unknown [id number] 2.16.8 40.1.778251.3.579.2.727 1941 Unknown [id number] 2.16.8 40.1.636493.3.579.2.727 1941 Unknown [id number] 2.16.8 40.1.466366.3.579.2.727 1941 Unknown [id number] 2.16.8 40.1.359469.3.579.2.727 1941 Unknown [id number] 2.16.8 40.1.136030.3.579.2.727 1941 Unknown [id number] 2.16.8 40.1.104388.3.579.2.727 1941 Unknown [id number] 2.16.840 .1.944522.3.579.2.1259 Medicare [id number] Medicare Medicare Outpatient [id number] 7A [id number] Unknown ANTHEM MEDICARE ADV Unknown HCAP/HFA/FAP Active [id number] Unknown [id number] 2.16.8 40.1.502301.3.579.2.531 Unknown [id number] 2.16.8 40.1.900621.3.579.2.531 Unknown [id number] 2.16.8 40.1.526216.3.579.2.531 Unknown [id number] 2.16.8 40.1.986537.3.579.2.531 Unknown [id number] 2.16.8 40.1.190039.3.579.2.531 Unknown [id number] 2.16.8 40.1.346203.3.579.2.531 Unknown [id number] 2.16.8 40.1.862307.3.579.2.531 Unknown [id number] 2.16.8 40.1.677947.3.579.2.531 Unknown [id number] 2.16.8 40.1.574919.3.579.2.531 Unknown [id number] 2.16.8 40.1.032553.3.579.2.531 Unknown [id number] 2.16.8 40.1.171018.3.579.2.531 Unknown [id number] 2.16.8 40.1.447547.3.579.2.531 Social History Date Type Detail Facility No illicit drug use No illicit drug use [facility] 250 DO Work Phone: Comment on above: Decaf coffee/decaf t ea; Sex Assigned At [facility] [employer] Other Start: 06-11-2022 End: 08-23-2023 Tobacco smoking status NHIS Never smoked tobacco (finding) [facility] Start: 1940 Sex Assigned At Female [facility] Tobacco smoking status Never [facility] Goals Date Patient Goal Desired Activity /State Functional Status Date Assessment Result Facility 10-30-2022 Functional Status N/A [facility] 07-26-2022 Functional Status N/A [facility] 07-14-2022 Functional status Patient at Baseline [facility] Work Phone: 07-14-2022 Functional status Patient at Baseline [facility] Work Phone: Mental Status Date Assessment Result Facility 07-14-2022 Cognitive function Cognitive Sta tus Patient at Baseline [facility] Work Phone: 07-14-2022 Cognitive function Cognitive Sta tus Patient Not at Baseline [facility] Work Phone: Clinical Notes 07-19-2020 to 04-30-2023 Note Date & Type Note Facility 04-30-2023 Evaluation note Encounter Date Diagnosis Assessment Notes Apr, Irritable bowel syndrome with diarrhea (ICD-10 - K58.0) Patient reports improvement she has only had one episode and that was due to dietary Patient advised to continue fiber therapy Patient is having trouble gaining weight, patient is to restart mirtazapine to help with her weight Patient is no longer taking metformin Patient will continue taking boost RTO 6 months [facility] Other 05-30-2023 Evaluation note* Encounter Date Diagnosis Assessment Notes Treatment Notes Treatment Clinical Notes February, Diarrhea (ICD-10 - R19.7) Patient is improving and she is watching her diet Patient is having anal pain and will take OTC recticare February, IBS (irritable bowel syndrome) (ICD-10 - K58.9) Patient is improving with diet restrictions February, Loss of appetite (ICD-10 - R63.0) Patient reports decreased appetite she will stop sertraline and start mirtazapine 15 mg February, Other Patient is conc erned about her glucose levels going up with budesonide Patient is encouraged to increase protein with shakes Patient is advised to lightly exercise [facility] Discharge instructions Additional Instructions DISCHARGE INSTRUCTIONS FOR CARDIAC SOCIAL WORK ASSISTANT PHONE NUMBER OF YOUR PHYSICIAN: [phone] PROCEDURE: Heart Cath The following instructions have been prepared to help you care for yourself, or be cared for upon your return home. 1. You were given conscious sedation. Do not operate a vehicle, power tools, make important decisions, or drink alcohol for 24 hours. You might be drowsy or light headed. Return to the Emergency Room if you have trouble breathing, walking or nausea and vomiting. 2. FOR BLEEDING: Apply continuous pressure to the site and call 911. 3. Operative Site Care: Keep the dressing clean and dry. You may change the dressing only if soiled or wet. You may remove the dressing the following morning. You may wash over the puncture site in the shower. If the puncture site is at the wrist no soaking for 3 days. Some bruising or slight swelling may be present. -Signs of infection are redness, warmth, swelling, getting more sore, colored drainage, fever or chills. -Should the arm or leg become cold, numb, blue or white, call the network systems operator immediately. 4. ACTIVITY: You are advised to go directly home from the hospital. Restrict your activities for the rest of the day. Resume light or normal activities tomorrow. Do not engage in any activity that will stress the puncture site. Avoid heavy lifting (over 15 lbs.), straining or bending at the catheter site for 48 hours after discharge. If the puncture site is at the wrist do not manipulate wrist for 24 hours and no lifting more than 3 lbs for 3 days. 5. DIET:You may eat your regular diet when you desire. 6. MEDICATIONS: Resume your daily prescription schedule. Prescriptions may be sent with you if needed. Use as directed. When taking pain medications, you may experience dizziness or drowsiness. Do not drink alcohol or drive when taking pain medications. 7. If you should experience episodes of angina e.g. chest discomfort, heaviness, tightness, pressure, burning, with or without radiation to the neck, jaws, arms, or back- Use 1 Nitrostat under your tongue every 5-10 minutes, and up to 3 tablets. If no relief- Call 911 and go to the nearest Emergency Room. -Notify the office for recurrent angina, chest pain or other concerns. You may NOT drive yourself home! Follow the medication instructions provided on your discharge. If the dosages and instructions on this sheet differ from the dosage and instructions on the bottle, follow the instructions on the bottle. [facility] is not responsible for incorrect prescription information provided by the patient during their visit. Do not stop your medications without consulting your health care provider. Please take the list with you to your next doctor's appointment.[facility] Work Phone: [phone]) 980-753603-21-2023 Evaluation note* Encounter Date Diagnosis Assessment Notes Treatment Notes Treatment Clinical Notes Dec, IBS (irritable bowel syndrome) (ICD-10 - K58.9) Patient can continue gluten free diet, due to the celiac sensitivity. Can try to re-introduce different food groups to see how she responds with them. This patient has been successful with her bowel movement frequency and consistency improving we will continue to utilize a gluten-free diet with gradual testing of aggravating foods. Recommendations given to patient to continue probiotics and increase water intake patient to call with questions and new recommendations will be provided if patient symptoms do not continue to improve Dec, Other Patient having trouble with controlling sugar levels since changing her diet to gluten free. [facility] Other 02-21-2023 Evaluation note* Encounter Date Diagnosis Assessment Notes Treatment Notes Treatment Clinical Notes Nov, Screening mammogram for breast cancer (ICD-10 - Z12.31) [facility] Other 02-21-2023 Evaluation note* Encounter Date Diagnosis Assessment Notes Treatment Notes Treatment Clinical Notes Nov, Diarrhea (ICD-10 - R19.7) PATIENT HAVING MULTIPLE BOUTS OF WATERY DIARRHEA. DIARRHEA WAKES HER UP AT NIGHT. PATIENT TO START [employer] [facility] PROCEED WITH LABS/STOOL STUDIES/ EGD/COLON Nov, Diverticulitis (ICD-10 - K57.92) Nov, Unintended weight loss (ICD-10 - R63.4) Nov, Loss of appetite (ICD-10 - R63.0) Nov, Change in bowel function (ICD-10 - R19.4) [facility] Other 02-16-2023 Evaluation note* Encounter Date Diagnosis Assessment Notes Treatment Notes Treatment Clinical Notes Nov, Type 2 diabetes mellitus with hypoglycemia without coma, without long-term current use of insulin (ICD-10 - E11.649) Start using this device and will follow up in 1 month. Nov, Generalized anxiety disorder (ICD-10 - F41.1) Continue current treatment and will follow up after gastro visit to see if anxiety is better after speaking with specialist [facility] Other 01-28-2023 Evaluation note* Encounter Date Diagnosis Assessment Notes Treatment Notes Treatment Clinical Notes Oct, Essential hypertension (ICD-10 - I10) Oct, Generalized anxiety disorder (ICD-10 - F41.1) [facility] Other 01-17-2023 Hospital Discharge instructions Patient Education 10/30/2022 12:42:21 Urethral Stricture Urethral Stricture Urethral stricture is narrowing of the tube (urethra) that carries urine from the bladder out of the body. The urethra can become narrow due to scar tissue from an injury or infection. This can make it difficult to pass urine. In women, the urethra opens above the vaginal opening. In men, the urethra opens at the tip of the penis, and the urethra is much longer than it is in women. Because of the length of the male urethra, urethral stricture is much more common in men. This condition is treated with surgery. What are the causes? In both men and women, common causes of urethral stricture include: Urinary tract infection (UTI). Sexually transmitted infection (STI). Use of a tube placed into the urethra to drain urine from the bladder (urinary catheter). Urinary tract surgery. In men, common causes of urethral stricture include: A severe injury to the pelvis. Prostate surgery. Injury to the penis. In many cases, the cause of urethral stricture is not known. What increases the risk? You are more likely to develop this condition if you: Are male. Men who have had prostate surgery are at risk of developing this condition. Use a urinary catheter. Have had urinary tract surgery. What are the signs or symptoms? The main symptom of this condition is difficulty passing urine. This may cause decreased urine flow, dribbling, or spraying of urine. Other symptom of this condition may include: Frequent UTIs. Blood in the urine. Pain when urinating. Swelling of the penis in men. Inability to pass urine (urinary obstruction). How is this diagnosed? This condition may be diagnosed based on: Your medical history and a physical exam. Urine tests to check for infection or bleeding. X-rays. Ultrasound. Retrograde urethrogram. This is a type of test in which dye is injected into the urethra and then an X-ray is taken. Urethroscopy. This is when a thin tube with a light and camera on the end (urethroscope) is used tolook at the urethra. How is this treated? This condition is treated with surgery. The type of surgery that you have depends on the severity of your condition. You may have: Urethral dilation. In this procedure, the narrow part of the urethra is stretched open (dilated) with dilating instruments or a small balloon. Urethrotomy. In this procedure, a urethroscope is placed into the urethra, and the narrow part of the urethra is cut open with a surgical blade inserted through the urethroscope. Open surgery. In this procedure, an incision is made in the urethra, the narrow part is removed, and the urethra is reconstructed. Follow these instructions at home: Take [id number]-[id number] and prescription medicines only as told by your health care provider. If you were prescribed an antibiotic medicine, take it as told by your health care provider. Do notstop taking the antibiotic even if you start to feel better. Drink enough fluid to keep your urine pale yellow. Keep all follow-up visits as told by your health care provider. This is important. Contact a health care provider if: You have signs of a urinary tract infection, such as: ?Frequent urination or passing small amounts of urine frequently. ?Needing to urinate urgently. ?Pain or burning with urination. ?Urine that smells bad or unusual. ?Cloudy urine. ?Pain in the lower abdomen or back. ?Trouble urinating. ?Blood in the urine. ?Vomiting or being less hungry than normal. ?Diarrhea or abdominal pain. ?Vaginal discharge, if you are female. Your symptoms are getting worse instead of better. Get help right away if: You cannot pass urine. You have a fever. You have swelling, bruising, or discoloration of your genital area. This includes the penis, scrotum, and inner thighs for men, and the outer genital organs (vulva) and inner thighs for women. You develop swelling in your legs. You have difficulty breathing. Summary Urethral stricture is narrowing of the tube (urethra) that carries urine from the bladder out of the body. The urethra can become narrow due to scar tissue from an injury or infection. This condition can make it difficult to pass urine. This condition is treated with surgery. The type of surgery that you have depends on the severity of your condition. Contact a health care provider if your symptoms get worse or you have signs of a urinary tract infection. This information is not intended to replace advice given to you by your health care provider. Make sure you discuss any questions you have with your health care provider. Document Released: 10/26/2016 Document Revised: 05/13/2019 Document Reviewed: 05/13/2019 [employer] Patient Education 2019 [employer]. Follow Up Care 10/29/2022 16:28:21 With:JESS ROSARIO, LAWRENCE Gracia, URL Address: [address] [place] [address] When: Unknown [facility] [place] 01-16-2023 NoteNeither ovary is identified with certainty. There is no free pelvic fluid. Cursory evaluation [facility] [employer] Other 01-13-2023 Evaluation note* Encounter Date Diagnosis Assessment Notes Treatment Notes Treatment Clinical Notes Oct, Dysuria (ICD-10 - R30.0) Discussed diagnosis and dipstick findings with patient. WIll hold off on treatment at this time. Advised patient culture was sent today and we will call with her results in 2-5 days. At time of results, treatment plan many change. Patient instructed to push fluids. Patient symptoms should improve in the next 48 hours, if symptoms persist follow up with PCP or UC. Immediate eval by ER if back or flank pain, fever, chills, N/V, or any other concerning symptoms arise. Patient verbalizes understanding and is agreeable to treatment plan [facility] Other 01-13-2023 Evaluation note* Encounter Date Diagnosis Assessment Notes Treatment Notes Treatment Clinical Notes Oct, Essential hypertension (ICD-10 - I10) [facility] Other 12-26-2022 Evaluation note* Encounter Date Diagnosis Assessment Notes Treatment Notes Treatment Clinical Notes Sep, Dysuria (ICD-10 - R30.0) Culture will be ordered. Will call patient with result if need to be treated with antibiotic Sep, Pelvic pain (ICD-10 - R10.2) US ordered at this time. Will discuss next steps after we get results back Sep, Swelling of labia (ICD-10 - N94.89) Recommend trying clotrimazole at this time to see if this helps with swelling. [facility] Other 12-13-2022 Evaluation note* Encounter Date Diagnosis Assessment Notes Treatment Notes Treatment Clinical Notes Sep, Other Summary of Visi t: (A) Importance of protein for health/blood sugar management (B) Tips for increasing appetite (C) Tips for increasing caloric density of foods during time of decreased appetite Other Info: -Patient reports losing her appetite when she had a disk replaced in her neck, has lost 35 lbs in the past few years (surgery was 8 years ago) -Per chart documentation, pt has lost 6.4% of her body weight in the last year -Anxiety diagnosis and low iron/magnesium-A1c= 5.6% -Was drinking boost occasionally but had recently stoppped-Has no appetite but isn't feeling nauseas; just not hungry-Reports that yogurt was causing her diarrhea Patient set the following goals: -Small, frequent meals always including a source of protein (PB, eggs, almond laina, cheese, premier protein shake, chicken salad, tuna salad)-Cook oats with whole milk instead of water to add calories-Try putting 1/2 premier protein shake in coffee in the morning -Set a timer to remind herself to eat every 3 hours-Continue blending fruits into protein shakes (premier protein) to increase calories since it is less than boost (premier protein has more protein than boost but less calories) -To build back muscle that has been lost during recent weight loss, see a physical therapist to get safe recommendations for strength training [facility] Other 10-27-2022 Evaluation note* Encounter Date Diagnosis Assessment Notes Treatment Notes Treatment Clinical Notes Jul, Essential hypertension (ICD-10 - I10) Continue current treatment plan Jul, Generalized anxiety disorder (ICD-10 - F41.1) Continue current treatment plan [facility] Other 10-13-2022 Hospital Discharge instructions Patient Education 07/26/2022 13:51:21 Urethral Stricture Urethral Stricture Urethral stricture is narrowing of the tube (urethra) that carries urine from the bladder out of the body. The urethra can become narrow due to scar tissue from an injury or infection. This can make it difficult to pass urine. In women, the urethra opens above the vaginal opening. In men, the urethra opens at the tip of the penis, and the urethra is much longer than it is in women. Because of the length of the male urethra, urethral stricture is much more common in men. This condition is treated with surgery. What are the causes? In both men and women, common causes of urethral stricture include: Urinary tract infection (UTI). Sexually transmitted infection (STI). Use of a tube placed into the urethra to drain urine from the bladder (urinary catheter). Urinary tract surgery. In men, common causes of urethral stricture include: A severe injury to the pelvis. Prostate surgery. Injury to the penis. In many cases, the cause of urethral stricture is not known. What increases the risk? You are more likely to develop this condition if you: Are male. Men who have had prostate surgery are at risk of developing this condition. Use a urinary catheter. Have had urinary tract surgery. What are the signs or symptoms? The main symptom of this condition is difficulty passing urine. This may cause decreased urine flow, dribbling, or spraying of urine. Other symptom of this condition may include: Frequent UTIs. Blood in the urine. Pain when urinating. Swelling of the penis in men. Inability to pass urine (urinary obstruction). How is this diagnosed? This condition may be diagnosed based on: Your medical history and a physical exam. Urine tests to check for infection or bleeding. X-rays. Ultrasound. Retrograde urethrogram. This is a type of test in which dye is injected into the urethra and then an X-ray is taken. Urethroscopy. This is when a thin tube with a light and camera on the end (urethroscope) is used tolook at the urethra. How is this treated? This condition is treated with surgery. The type of surgery that you have depends on the severity of your condition. You may have: Urethral dilation. In this procedure, the narrow part of the urethra is stretched open (dilated) with dilating instruments or a small balloon. Urethrotomy. In this procedure, a urethroscope is placed into the urethra, and the narrow part of the urethra is cut open with a surgical blade inserted through the urethroscope. Open surgery. In this procedure, an incision is made in the urethra, the narrow part is removed, and the urethra is reconstructed. Follow these instructions at home: Take [id number] and prescription medicines only as told by your health care provider. If you were prescribed an antibiotic medicine, take it as told by your health care provider. Do notstop taking the antibiotic even if you start to feel better. Drink enough fluid to keep your urine pale yellow. Keep all follow-up visits as told by your health care provider. This is important. Contact a health care provider if: You have signs of a urinary tract infection, such as: ?Frequent urination or passing small amounts of urine frequently. ?Needing to urinate urgently. ?Pain or burning with urination. ?Urine that smells bad or unusual. ?Cloudy urine. ?Pain in the lower abdomen or back. ?Trouble urinating. ?Blood in the urine. ?Vomiting or being less hungry than normal. ?Diarrhea or abdominal pain. ?Vaginal discharge, if you are female. Your symptoms are getting worse instead of better. Get help right away if: You cannot pass urine. You have a fever. You have swelling, bruising, or discoloration of your genital area. This includes the penis, scrotum, and inner thighs for men, and the outer genital organs (vulva) and inner thighs for women. You develop swelling in your legs. You have difficulty breathing. Summary Urethral stricture is narrowing of the tube (urethra) that carries urine from the bladder out of the body. The urethra can become narrow due to scar tissue from an injury or infection. This condition can make it difficult to pass urine. This condition is treated with surgery. The type of surgery that you have depends on the severity of your condition. Contact a health care provider if your symptoms get worse or you have signs of a urinary tract infection. This information is not intended to replace advice given to you by your health care provider. Make sure you discuss any questions you have with your health care provider. Document Released: 10/26/2016 Document Revised: 05/13/2019 Document Reviewed: 05/13/2019 [employer] Patient Education 2020 [employer]. Follow Up Care 07/25/2022 14:12:46 With:[facility] Address: [address] [place] [address] [facility] (1) When: Unknown Comments:our immigration case worker will be contacting you for follow-up With:LAWRENCE MERCADO PA-C, URL Address: [address] [place] [address] [phone] When: Unknown [facility] [place] [phone] Evaluation note* Encounter Date Diagnosis Assessment Notes Treatment Notes Treatment Clinical Notes Jul, Orthostatic hypotension (ICD-10 - I95.1) Due to symptoms of dizziness and lightedness, stopped AMLODIPINE medication as discussed. Monitor blood pressure at home and discuss with network systems operator when seen . Jul, Iron deficiency anemia, unspecified iron deficiency anemia type (ICD-10 - D50.9) Start taking supplement with food. May change color of stool. Discussed blood work at the last appointment and will recheck as discussed in a few months. Continue with dietition appointment Jul, Low magnesium level (ICD-10 - R79.0) take magnesium supplement as discussed Jul, Generalized anxiety disorder (ICD-10 - F41.1) Start medication as we talked about. Will follow up at the end of the month to see how you are doing. Jul, Type 2 diabetes mellitus without complication, without long-term current use of insulin (ICD-10 - E11.9) Patient is scheduled wi dietition at [facility] Jul, Essential hypertension (ICD-10 - I10) Jul, Other Patient is francisca chacon to follow up with Dr. Davis regarding Urinary symptoms she is experiencing because she is having symptoms intermittently [facility] Other 10-03-2022 Evaluation note* Encounter Date Diagnosis Assessment Notes Treatment Notes Treatment Clinical Notes Jul, Dysuria (ICD-10 - R30.0) Jul, Orthostatic hypotension (ICD-10 - I95.1) Due to symptoms of dizziness and lightedness, decreased medication as discussed. Monitor blood pressure at home and discuss with network systems operator when seen . Jul, Iron deficiency anemia, unspecified iron deficiency anemia type (ICD-10 - D50.9) Start taking supplement with food. May change color of stool. Will follow up with blood work check as discussed in a few months. Continue with dietition appointment Jul, Low magnesium level (ICD-10 - R79.0) take magnesium supplement as discussed Jul, Acute cystitis with hematuria (ICD-10 - N30.01) Take medication as discussed. Jul, Generalized anxiety disorder (ICD-10 - F41.1) Start medication as we talked about. Will follow up at the end of the month to see how you are doing. [facility] Other 10-01-2022 Discharge summary Author Sarah Quevedo [facility] July 14, 2022 1:11pm Note Date/Time July 14, 2022 1: 11pm [facility] [address] [place] [address] Discharge Summary Signed Patient: Maritza Vicente MR#: [id number] : 1940 Acct:[id number] Age/Sex: 82 / F Adm Date: 2 Loc: Room: [address] [place] [address]: Sarah Quevedo DO Copies to: NON STAFF Sarah Quevedo DO~ Providers Date of Discharge: 07/14/22 Discharging Provider: Sarah Quevedo Primary Care Provider: NON STAFF Consults: 07/14/22 04:55 Consult to Occupational Therapy Routine Consult to Physical Therapy Routine Discharge Diagnosis (1) Acute hyponatremia: (2) Hypokalemia: (3) Dizziness: (4) Poor appetite: Final Diagnosis Final Discharge Diagnosis: As above Summary Hospital Course Hospital course: 82-year-old female with past medical history of type 2 diabetes, hypertension, presenting with multiple chronic complaints including dizziness, poor appetite and weight loss over 7 years and decreased appetite. Blood work showed hyponatremia. Hydrochlorothiazide was discontinued and her sodium improved with gentle normal saline. Patient reported left flank pain on admission and a CT abdomen pelvis was nonacute, uncomplicated diverticulosis was noted. Around 8 AM the day of admission the patient states she has sudden urge to have a bowel movement, rushed to get to the bathroom and had a fall after bumping into a trash can. CT of the brain was nonacute, no evidence of intracranial bleeding, mass-effect or ischemia. Suspect patient's symptoms are related to blood pressure control, hyponatremia related to hydrochlorothiazide. For appetite and weight loss I encourage patient to keep a food diary for review at her next PCP appointment. She statesher weight loss has been over 7 years, no specific symptoms. TSH within normal limits. Her sodium has improved and she is stable for discharge. She was started on lisinopril 10 mg after hydrochlorothiazide was discontinued. She will continue Norvasc. On the day of discharge she was given 10 mg, blood pressure on the lower side systolics 102, this will be discontinued on dischargeand she was instructed to continue 2.5 mg home dose. Condition Condition at Discharge: Stable Status at Discharge Functional status at discharge: independent ambulation Overall status at discharge: patient is progressing back to baseline Time Spent with Patient Time spent providing/coordinating discharge services (# min): 45 Diagnostic Studies Completed and Pending Studies Pending studies at discharge: 07/14/22 04:58 Osmolality, Urine Routine Labs on day of discharge: 07/14/22 11:26: POC Glucose 98 07/14/22 08:12: POC Glucose 110 07/14/22 06:59: Corrected WBC 6.3, Uncorrected WBC Count 6.3, RBC 4.80, Hgb 13.6, Hct 39.9, MCV 83.2, MCH 28.3, MCHC 34.0, RDW 13.5, Plt Count 222, MPV 7.7,Neut % (Auto) 56.4, Lymph % (Auto) 30.9, [place] % (Auto) 10.3, Eos % (Auto) 1.7, Baso % (Auto) 0.7, Neut # (Auto) 3.5, Lymph # (Auto) 1.9, [place] # (Auto) 0.6, Eos# (Auto) 0.1, Baso # (Auto) 0.0, Nucleated RBC % (auto) 0.1 07/14/22 06:59: PHA Creatinine Clear 39.79, Sodium 131 L, Potassium 4.0, Chloride 94 L, Carbon Dioxide 26.8, Anion Gap 14.2, BUN 5 L, Creatinine 0.51, Est GFR ( Amer) > 60, Est GFR (Non-Af Amer) > 60, Glucose 97, Calcium 9.8, Magnesium 2.0, Total Bilirubin 0.7, AST 26, ALT 23, Alkaline Phosphatase 51, Total Protein 6.9, Albumin 4.2, Globulin 2.7, Albumin/Globulin Ratio 1.6, Free T4 1.00, TSH 3rd Generation 1.75 07/14/22 06:59: Osmolality 280 07/14/22 05:06: SARS Antigen (LFIA) Negative 07/14/22 05:06: COVID-19 Clin Com Negative 07/14/22 01:45: PHA Creatinine Clear 40.68, Sodium 126 L, Potassium 3.4 L, Chloride 84 L, Carbon Dioxide 31.0 H, Anion Gap 14.4, BUN 8 L, Creatinine 0.56, Est GFR ( Amer) > 60, Est GFR (Non-Af Amer) > 60, Glucose 105 H, Calcium 10.3 H, Total Bilirubin 0.6, AST 27, ALT 21, Alkaline Phosphatase 50, Total Protein 6.7, Albumin 4.1, Globulin 2.6, Albumin/Globulin Ratio 1.6 07/14/22 01:45: Corrected WBC 5.2, Uncorrected WBC Count 5.2, RBC 4.52, Hgb 12.7, Hct 37.1, MCV 82.2, MCH 28.2, MCHC 34.2, RDW 13.4, Plt Count 207, MPV 7.7,Neut % (Auto) 61.3, Lymph % (Auto) 26.6, [place] % (Auto) 10.0, Eos % (Auto) 1.7, Baso % (Auto) 0.4, Neut # (Auto) 3.2, Lymph # (Auto) 1.4, [place] # (Auto) 0.5, Eos# (Auto) 0.1, Baso # (Auto) 0.0, Nucleated RBC % (auto) 0.1 07/14/22 00:59: Ur Random Sodium 19 07/14/22 00:59: Urine Color Yellow, Urine Appearance Clear, Urine pH 7.0, Ur Specific Hepz[place] 1.004, Urine Protein Negative, Urine Glucose (UA) Normal, UrineKetones Negative, Urine Occult Blood Negative, Urine Nitrite Negative, Urine Bilirubin Negative, Urine Urobilinogen Normal, Ur Leukocyte Esterase 2+ H, UrineRBC 0-1, Urine WBC 3-4, Ur Squamous Epith Cells 0-1, Urine Bacteria None seen, Hyaline Casts None seen Exam Physical Exam Vital Signs: Temp Pulse Resp BP Pulse Ox O2 Del Method 97.2 F L 65 20 102/58 L 99 Room Air 07/14/22 11:33 07/14/22 11:33 07/14/22 11:33 07/14/22 11:33 07/14/22 11:33 07/14/22 12:00 Narrative: General: NAD, patient is alert and oriented to person, hospital, year, is at bedside HEENT: Normocephalic, atraumatic, pupils are equal and reactive to light, neck is supple and trachea is midline Lungs: Clear on auscultation bilaterally, no wheezing or rhonchi Cardio: RRR, No murmur Abdomen: Soft, nondistended and nontender to palpation with bowel sounds throughout LE: No edema Neuro: A&O X3, Speech is clear, No acute motor deficit Skin: Warm and dry Psych: Appropriate mood and affect Discharge Plan Discharge Plan Patient Disposition: Home Activity: No Activity Restriction Diet: Regular Additional Instructions: Please keep a food diary at home and write down everything you are eating and the amount for 2 days Bring this to your follow-up appointment with your PCP for review STOP taking hydrochlorothiazide Prescriptions: New lisinopril 10 mg Tablet 10 mg PO DAILY Qty: 30 0RF Continued buspirone 5 mg tablet 5 mg PO DAILY amlodipine 2.5 mg tablet 2.5 mg PO DAILY metformin 500 mg tablet 500 mg PO DAILY Label Comments: TAKE 1 TABLET BY MOUTH ONCE DAILY aspirin 81 mg Tablet,Delayed Release (Dr/Ec) 81 mg PO DAILY simvastatin 40 mg Tablet 20 mg PO QHS Discontinued hydrochlorothiazide 25 mg tablet 25 mg PO DAILY Follow Up: NON STAFF, [Primary Care Provider] - Documented By: Sarah Quevedo DO 07/14/22 1302 Signed By: <Electronically signed by Sarah Quevedo DO> 07/14/22 1311 [facility] Work Phone: 1(579) 535-929910-01-2022 History and physical note Author Nj Cantu [facility] July 14, 2022 5:09am Note Date/Time July 14, 2022 5: 09am [facility] [address] [place] [address] Hospitalist H&P Signed Patient: Maritza Vicente MR#: [id number] : 1940 Acct:[id number] Age/Sex: 82 / F Adm Date: 2 Loc: ER Room: Type: [facility] Attending Dr: Copies to: NON STAFF MD Gregg Mcleod, DO~ HPI DATE OF EXAMINATION: 07/14/22 CHIEF COMPLAINT: weakness HISTORY OF PRESENT ILLNESS: Patient is an 82-year-old female with history of type 2 diabetes mellitus/hypertension who presented to the hospital complaining of multiple chronic complaints That is been going on for almost a year however she stated that she felt confused last night so that is why she came into the hospital patient was complaining of decreased appetite/weight loss over the last year/left-sided sacroiliac joint pain/weakness and confusion, blood work was consistent with mild hyponatremia and the rest of the vital signs/blood work were within normal limits, on my encounter the patient was in bed/did not seem to be in distress and she was alert and oriented x3 Review of Systems Review of Systems All other systems reviewed & are negative unless noted below or in HPI PMFSH Vaccinated for COVID-19?: Yes Medical History Diabetes Diverticulosis Hx of tendinitis Surgical History History of endoscopy Hx of appendectomy Hx of cholecystectomy Hx of hysterectomy Hx of neck surgery Social History Smoking Status: Never smoker Substance Use Type: None Meds Medications and Allergies Allergies morphine Allergy (Verified 07/14/22 00:40) Hypertension Home Medications aspirin 81 mg tablet,delayed release 81 mg PO DAILY 05/08/19 [History Confirmed 07/14/22] metformin 500 mg tablet 500 mg PO DAILY 05/08/19 [History Confirmed 07/14/22] simvastatin 40 mg tablet 20 mg PO QHS 05/08/19 [History Confirmed 07/14/22] amlodipine 2.5 mg tablet 2.5 mg PO DAILY 07/14/22 [History Confirmed 07/14/22] buspirone 5 mg tablet 5 mg PO DAILY 07/14/22 [History Confirmed 10/01/22] hydrochlorothiazide 25 mg tablet 25 mg PO DAILY 07/14/22 [History Confirmed 07/14/22] Exam Physical Exam Vital Signs: Temp Pulse Resp BP Pulse Ox O2 Del Method 97.7 F 72 16 171/70 H 97 Room Air 07/14/22 00:40 07/14/22 04:23 07/14/22 04:23 07/14/22 04:23 07/14/22 04:23 07/14/22 04:23 Narrative: General: patient is alert and oriented, laying in bed comfortably no acute distress HEENT: head atraumatic, normocephalic, moist mucous membranes, normal nose and ears, no throat lesions, normal conjunctiva Neck: supple no masses, no lymphadenopathy CVS: regular rate and rhythm, no murmurs or gallops Respiratory: clear to auscultation bilaterally, no wheezing or crackles, symmetric expansion GI: soft, nondistended, nontender, positive bowel sounds with no organomegaly Extremity: moves all extremities, no restrictions of movements, no calf tenderness, no edema Neuro: alert and oriented x3, normal speech, normal motor function Skin: dry, intact no rashes or lesions Results Lab Results Labs: Laboratory Last Values Corrected WBC 5.2 X10E3/uL (3.8-11.6) 07/14/22 01:45 Uncorrected WBC Count 5.2 x10E3/uL (4.5-11.0) 07/14/22 01:45 RBC 4.52 x10E6/uL (3.60-5.00) 07/14/22 01:45 Hgb 12.7 g/dL (11.8-15.4) 07/14/22 01:45 Hct 37.1 % (34.0-46.4) 07/14/22 01:45 MCV 82.2 fl (80-100) 07/14/22 01:45 MCH 28.2 pg (24.7-34.3) 07/14/22 01:45 MCHC 34.2 g/dL (32.0-35.0) 07/14/22 01:45 RDW 13.4 % (11.9-15.3) 07/14/22 01:45 Plt Count 207 x10E3/uL (150-450) 07/14/22 01:45 MPV 7.7 fl (6.3-10.7) 07/14/22 01:45 Neut % (Auto) 61.3 % (.) 07/14/22 01:45 Lymph % (Auto) 26.6 % (.) 07/14/22 01:45 [place] % (Auto) 10.0 % (.) 07/14/22 01:45 Eos % (Auto) 1.7 % (.) 07/14/22 01:45 Baso % (Auto) 0.4 % (.) 07/14/22 01:45 Neut # (Auto) 3.2 x10E3/uL (1.8-7.7) 07/14/22 01:45 Lymph # (Auto) 1.4 x10E3/uL (1.00-4.8) 07/14/22 01:45 [place] # (Auto) 0.5 x10E3/uL (0.0-0.8) 07/14/22 01:45 Eos # (Auto) 0.1 x10E3/uL (0.0-0.45) 07/14/22 01:45 Baso # (Auto) 0.0 x10E3/uL (0.0-0.2) 07/14/22 01:45 Nucleated RBC % (auto) 0.1 % (0-0.5) 07/14/22 01:45 PHA Creatinine Clear 40.68 07/14/22 01:45 Sodium 126 mmol/L (136-146) L 07/14/22 01:45 Potassium 3.4 mmol/L (3.5-5.1) L 07/14/22 01:45 Chloride 84 mmol/L (95-114) L 07/14/22 01:45 Carbon Dioxide 31.0 mmol/L (22.0-30.0) H 07/14/22 01:45 Anion Gap 14.4 mEq/L (6.0-15.0) 07/14/22 01:45 BUN 8 mg/dL (9-23) L 07/14/22 01:45 Creatinine 0.56 mg/dL (0.44-1.03) 07/14/22 01:45 Est GFR ( Amer) > 60 mL/Min 07/14/22 01:45 Est GFR (Non-Af Amer) > 60 mL/Min 07/14/22 01:45 Glucose 105 mg/dL (70-100) H 07/14/22 01:45 Calcium 10.3 mg/dL (8.2-10.2) H 07/14/22 01:45 Total Bilirubin 0.6 mg/dL (0.3-1.2) 07/14/22 01:45 AST 27 U/L (10-42) 07/14/22 01:45 ALT 21 U/L (10-60) 07/14/22 01:45 Alkaline Phosphatase 50 U/L (32-92) 07/14/22 01:45 Total Protein 6.7 gm/dL (6.1-7.9) 07/14/22 01:45 Albumin 4.1 gm/dL (3.2-5.5) 07/14/22 01:45 Globulin 2.6 gm/dL 07/14/22 01:45 Albumin/Globulin Ratio 1.6 07/14/22 01:45 Urine Color Yellow (Yellow) 07/14/22 00:59 Urine Appearance Clear (Clear) 07/14/22 00:59 Urine pH 7.0 (5.0-9.0) 07/14/22 00:59 Ur Specific Hepzibah 1.004 (1.001-1.030) 07/14/22 00:59 Urine Protein Negative mg/dL (Negative) 07/14/22 00:59 Urine Glucose (UA) Normal mg/dL (Normal) 07/14/22 00:59 Urine Ketones Negative (Negative) 07/14/22 00:59 Urine Occult Blood Negative (Negative) 07/14/22 00:59 Urine Nitrite Negative (Negative) 07/14/22 00:59 Urine Bilirubin Negative (Negative) 07/14/22 00:59 Urine Urobilinogen Normal mg/dL (Normal) 07/14/22 00:59 Ur Leukocyte Esterase 2+ (Negative) H 07/14/22 00:59 Urine RBC 0-1 /HPF (0-4) 07/14/22 00:59 Urine WBC 3-4 /HPF (0-4) 07/14/22 00:59 Ur Squamous Epith Cells 0-1 /HPF (0-2) 07/14/22 00:59 Urine Bacteria None seen (None Seen) 07/14/22 00:59 Hyaline Casts None seen /LPF (0-8) 07/14/22 00:59 A&P - Hospitalist Assessment/Plan (1) Acute hyponatremia: Plan Assessment and plan *Euvolemic hyponatremia *Chronic weakness/decreased p.o. intake ? Admit to the floor ? Hyponatremia is most likely hydrochlorothiazide induced ? We will check urine osmolality/serum osmole's and urine sodium ? We will check TSH/free T4 ? Gentle hydration with normal saline ? Repeat BMP in the morning ? PT/OT *Chronic medical issues 1. Hypertension, mildly uncontrolled, stop hydrochlorothiazide and start patient on Norvasc/lisinopril 2. History of type 2 diabetes mellitus, hold metformin start patient on Lantus 10 units with sliding scale insulin *DVT prophylaxis with Lovenox Documented By: Nj Adorno MD 2 0502 Signed By: <Electronically signed by Nj Adorno MD> 07/14/22 0509 [facility] Work Phone: 1(713) 119-710509-26-2022 Evaluation note* Encounter Date Diagnosis Assessment Notes Treatment Notes Treatment Clinical Notes Jun, Essential hypertensi on (ICD-10 - I10) Jun, Intermittent lightheadedness (ICD-10 - R42) Jun, Type 2 diabetes mellitus without complication, without long-term current use of insulin (ICD-10 - E11.9) Jun, Generalized anxiety disorder (ICD-10 - F41.1) [facility] Other 07-29-2022 Evaluation note* Encounter Date Diagnosis Assessment Notes Treatment Notes Treatment Clinical Notes Apr, Dysuria (ICD-10 - R30.0) Discussed diagnosis and dipstick findings with patient. Will hold off on treatment at this time. Advised patient culture was sent today and we will call with her results in 2-5 days. At time of results, treatment plan may change. Patient instructed to push fluids. May take OTC AZO. Patient symptoms should improve in the next 48 hours, if symptoms persist follow up with PCP or UC. Immediate eval by ER if back or flank pain, fever, chills, N/V, or any other concerning symptoms arise. Patient verbalizes understanding and is agreeable to treatment plan [facility] Other 03-27-2022 Evaluation note* Encounter Date Diagnosis Assessment Notes Treatment Notes Treatment Clinical Notes Dec, Dysuria (ICD-10 - R30.0) Dec, Acute cystitis without hematuria (ICD-10 - N30.00) Take medication as directed. Urine analysis shows abnormalities today in office. Urine culture will be sent to lab. Will call with results if warranted. Increase fluid intake. Follow hygiene guidelines such as wiping front to back, avoid using perfumed lotions, bath beads, bubble bath. Recommend follow up with primary care provider after treatment completed to make sure infection has cleared. [facility] Other 12-10-2021 Evaluation note* Encounter Date Diagnosis Assessment Notes Treatment Notes Treatment Clinical Notes Sep, Contact with and (suspected) exposure to other viral communicable diseases (ICD-10 - Z20.828) Sep, Viral upper respiratory illness (ICD-10 - J06.9) Drink plenty fluids, get plenty of rest. Take Tylenol or Motrin as needed for aches pains or fevers. Consider using Mucinex for congestion. Follow-up with your doctor if no improvement in 2 to 3 days Sep, Other Additional time spent conducting pre-visit phone call, screening for symptoms, instructions on social distancing, application and removal of PPE, and cleaning of examination room, equipment and supplies was preformed. Patient education given for testing methodology and results. Patient care instructions given in writting by [facility] document. Additional time spent conducting pre-visit phone call, screening for symptoms, instructions on social distancing, application and removal of PPE, and cleaning of examination room, equipment and supplies was preformed. Patient education given for testing methodology and results. Patient care instructions given in writting by [facility] [place] 2[facility] document. [facility] Other 10-07-2020 History of Present illness Narrative* Patient is seen in consultation at the request of her primary care physician for complaints of lightheadedness and dizziness. She is an individual who had the aforementioned symptomatology. Because of this she underwent testing which included a Holter monitor. There were no significant findings other than mild bradycardia. No extremes of tachycardia or bradycardia were noted nor were there any pauses. * Last year she underwent stress testing with isotope imaging to evaluate her for coronary disease that study was normal demonstrating no infarct, no ischemia, and normal ejection fraction. Advised herthis is favorable. We discussed repeat event monitoring but her frequency of arrhythmia symptomatolo gy is extremely rare and I am worried and/or doubtful that even a 30-day event monitor would have any utility at capturing an arrhythmia episode that might explain the etiology of her symptomatology because of this I suggested that we forego such testing until she starts to have more frequent symptomatology. * I did, though, proposed evaluating her for cardiomyopathy that might be the cause of her abrupt onset of lightheadedness and dizziness. Symptoms do sound like paroxysmal arrhythmias and hopefully in the future we can capture an event. In the meantime I believe excluding cardiomyopathy as the cause of these events is important because of this an echocardiogram will be performed * We reviewed with her treatment of her hypertension. She understands lisinopril could drop blood pressure and cause dizziness but the history does not sound like that she actually does not wish to cutback on lisinopril. Treatment of her lipids and diabetes is reviewed and felt to be adequate and appropriate because of all the above we suggest continued therapy as is and the echocardiogram as noted. She was encouraged to call if her arrhythmia symptomatology becomes more frequent in which case we would proceed with a 30- day event monitor. [facility] [email or web address] DO Work Phone: [phone] History of Present illness Narrative* Patient is seen in consultation at the request of her primary care physician for complaints of lightheadedness and dizziness. She is an individual who had the aforementioned symptomatology. Because of this she underwent testing which included a Holter monitor. There were no significant findings other than mild bradycardia. No extremes of tachycardia or bradycardia were noted nor were there any pauses. * Last year she underwent stress testing with isotope imaging to evaluate her for coronary disease that study was normal demonstrating no infarct, no ischemia, and normal ejection fraction. Advised herthis is favorable. We discussed repeat event monitoring but her frequency of arrhythmia symptomatolo gy is extremely rare and I am worried and/or doubtful that even a 30-day event monitor would have any utility at capturing an arrhythmia episode that might explain the etiology of her symptomatology because of this I suggested that we forego such testing until she starts to have more frequent symptomatology. * I did, though, proposed evaluating her for cardiomyopathy that might be the cause of her abrupt onset of lightheadedness and dizziness. Symptoms do sound like paroxysmal arrhythmias and hopefully in the future we can capture an event. In the meantime I believe excluding cardiomyopathy as the cause of these events is important because of this an echocardiogram will be performed * We reviewed with her treatment of her hypertension. She understands lisinopril could drop blood pressure and cause dizziness but the history does not sound like that she actually does not wish to cutback on lisinopril. Treatment of her lipids and diabetes is reviewed and felt to be adequate and appropriate because of all the above we suggest continued therapy as is and the echocardiogram as noted. She was encouraged to call if her arrhythmia symptomatology becomes more frequent in which case we would proceed with a 30- day event monitor. [place] [id number] DO Work Phone: Consult note Author Mark Win [facility] February 12, 2023 10:55am Note Date/Time February 12, 2023 10:55a m [facility] [address] [place] [address] Gastroenterology Consult Note Signed Patient: Maritza Vicente MR#: [id number] : 1940 Acct:[id number] Age/Sex: 82 / F Adm Date: 3 Loc: Room: Type: [facility] Attending Dr: Mark Win MD Copies to: ALEXIA DEJESUS MD~ HPI Data of Consult Date of Consultation: 02/12/23 Requesting Physician: Mark Win MD Consult Narrative History of present illness: Ms. Vicente is a 82 year old female cc:: CC: Mark Win MD [facility] Vaccinated for COVID-19?: Yes Medical History (Updated 02/12/23 @ 10:13 by Mark Win MD) Anxiety Diabetes Dilation of urethra reports does once a year, dr davis Diverticulosis History of rheumatic fever as a child Hx of tendinitis Hypercholesteremia Hypertension Irritable bowel disease Surgical History History of endoscopy History of phacoemulsification of cataract of both eyes with intraocular lens implantation Hx of appendectomy Hx of cholecystectomy Hx of hysterectomy Hx of neck surgery Family History Brother Diabetes Father Diabetes Sister Diabetes Social History Smoking Status: Never smoker Substance Use Type: None Social History Comments: mobile home Meds Medications and Allergies Allergies morphine Allergy (Verified 01/30/23 09:32) Hypertension Home Medications aspirin 81 mg tablet,delayed release 81 mg PO DAILY 05/08/19 [History Confirmed 02/12/23] metformin 500 mg tablet 500 mg PO DAILY 05/08/19 [History Confirmed 02/12/23] buspirone 5 mg tablet 10 mg PO DAILY 07/14/22 [History Confirmed 02/12/23] famotidine 20 mg tablet 20 mg PO DAILY 12/12/22 [History Confirmed 02/12/23] ferrous sulfate 325 mg (65 mg iron) tablet 325 mg PO BID 12/12/22 [History Confirmed 02/12/23] magnesium 200 mg tablet 200 mg PO DAILY 12/12/22 [History Confirmed 02/12/23] sertraline 25 mg tablet 75 mg PO DAILY 12/12/22 [History Confirmed 02/12/23] Lactobacillus acidophilus 10 billion cell capsule (Probiotic) 1 cell PO DAILY 01/30/23 [History Confirmed 02/12/23] cholecalciferol (vitamin D3) 25 mcg (1,000 unit) tablet (Vitamin D3) 25 mcg PO DAILY 01/30/23 [History Confirmed 02/12/23] conjugated estrogens 0.625 mg/gram vaginal cream (Premarin) 1 applic vaginal 3XW01/30/23 [History Confirmed 02/12/23] lisinopril 10 mg tablet 30 mg PO DAILY 01/30/23 [History Confirmed 02/12/23] cexxiheujryf-lrwtjuyi-bjsfgs tablet 1 tab PO DAILY 01/30/23 [History Confirmed 02/12/23] mesalamine 1.2 gram tablet,delayed release (Lialda) 4.8 g PO DAILY 8 weeks #120 tabs 02/12/23 [Rx] simvastatin 40 mg tablet 40 mg PO QHS 02/12/23 [History Confirmed 02/12/23] Exam Physical Exam Vital Signs: Temp Pulse Resp BP Pulse Ox O2 Del Method 97.6 F 74 18 129/61 98 Room Air 02/12/23 08:04 02/12/23 08:04 02/12/23 08:04 02/12/23 08:04 02/12/23 08:04 02/12/23 08:04 Narrative: Constitutional: Well-developed, well nourished, alert and oriented ?3, in no apparent distress. Head: Normocephalic. Eyes pupils equal and round, reactive to light and accommodation. No icterus or conjunctivitis. Ears: Normal appearance. Neck and nodes: negative Mouth, nose and throat: Normal appearance. Chest: Clear to auscultation and percussion. Heart: Regular rhythm without murmurs or gallops. No thrills or heaves. Abdomen: No distention or tympany. Normal bowel sounds. Liver and spleen normal to percussion and palpation. No masses or tenderness. No bruits heard Rectum: Grossly normal. Extremities: No palmar erythema. No Dupuytren's contractures. No edema noted. Neuro: Grossly negative. Skin: Normal Results Labs Labs: Laboratory Results - last 24 hr 02/12/23 08:07 POC Glucose 124 POC Glucose Comment Glu2: cleaned meter A&P - Gastroenterology Assessment/Plan (1) Weight loss: Plan: Proceed with EGD and colonoscopy Code(s): R63.4 - Abnormal weight loss Status: Acute Documented By: Mark Win MD 02/12/23 1047 Signed By: <Electronically signed by MD Mark Win> 02/12/23 1055 [facility] Work Phone: Evaluation + Plan note No data available for this section [facility] Evaluation + Plan note Future Appointments Appointment Date:05/01/2023 02:30:00 PM Scheduled Provider:Zina DAVIS MD Location:[facility] Appointment Type:URO Office Visit [facility] evaluambnw noteNo InformationNort Lolapps Other evalubixav noteNo assessment information available [facility] Work Phone: evaluation note* Diagnosis Onset Date Resolution Status Acute hyponatremia acute AMS (altered mental status) acute Constipation acute Sacroiliitis acute [facility] Work Phone: Evaluation note* Diagnosis Onset Date Resolution Status Weight loss acute [facility] Work Phone: History and physical note Author Nj Cantu [facility] July 14, 2022 5:09am Note Date/Time July 14, 2022 5: 09am [facility] [address] [place] [address] Hospitalist H&P Signed Patient: Maritza Vicente MR#: [id number] : 1940 Acct:[id number] Age/Sex: 82 / F Adm Date: 2 Loc: ER Room: Type: [facility] ER Attending Dr: Copies to: NON STAFF MD Gregg Mcleod, ~ HPI DATE OF EXAMINATION: 07/14/22 CHIEF COMPLAINT: weakness HISTORY OF PRESENT ILLNESS: Patient is an 82-year-old female with history of type 2 diabetes mellitus/hypertension who presented to the hospital complaining of multiple chronic complaints That is been going on for almost a year however she stated that she felt confused last night so that is why she came into the hospital patient was complaining of decreased appetite/weight loss over the last year/left-sided sacroiliac joint pain/weakness and confusion, blood work was consistent with mild hyponatremia and the rest of the vital signs/blood work were within normal limits, on my encounter the patient was in bed/did not seem to be in distress and she was alert and oriented x3 Review of Systems Review of Systems All other systems reviewed & are negative unless noted below or in HPI [facility] Vacc[facility] for [facility]-19?: Yes Medical History Diabetes Diverticulosis Hx of tendinitis Surgical History History of endoscopy Hx of appendectomy Hx of cholecystectomy Hx of hysterectomy Hx of neck surgery Social History Smoking Status: Never smoker Substance Use Type: None Meds Medications and Allergies Allergies morphine Allergy (Verified 07/14/22 00:40) Hypertension Home Medications aspirin 81 mg tablet,delayed release 81 mg PO DAILY 05/08/19 [History Confirmed 07/14/22] metformin 500 mg tablet 500 mg PO DAILY 05/08/19 [History Confirmed 07/14/22] simvastatin 40 mg tablet 20 mg PO QHS 05/08/19 [History Confirmed 07/14/22] amlodipine 2.5 mg tablet 2.5 mg PO DAILY 07/14/22 [History Confirmed 07/14/22] buspirone 5 mg tablet 5 mg PO DAILY 07/14/22 [History Confirmed 07/14/22] hydrochlorothiazide 25 mg tablet 25 mg PO DAILY 07/14/22 [History Confirmed 07/14/22] Exam Physical Exam Vital Signs: Temp Pulse Resp BP Pulse Ox O2 Del Method 97.7 F 72 16 171/70 H 97 Room Air 07/14/22 00:40 07/14/22 04:23 07/14/22 04:23 07/14/22 04:23 07/14/22 04:23 07/14/22 04:23 Narrative: General: patient is alert and oriented, laying in bed comfortably no acute distress HEENT: head atraumatic, normocephalic, moist mucous membranes, normal nose and ears, no throat lesions, normal conjunctiva Neck: supple no masses, no lymphadenopathy CVS: regular rate and rhythm, no murmurs or gallops Respiratory: clear to auscultation bilaterally, no wheezing or crackles, symmetric expansion GI: soft, nondistended, nontender, positive bowel sounds with no organomegaly Extremity: moves all extremities, no restrictions of movements, no calf tenderness, no edema Neuro: alert and oriented x3, normal speech, normal motor function Skin: dry, intact no rashes or lesions Results Lab Results Labs: Laboratory Last Values Corrected WBC 5.2 X10E3/uL (3.8-11.6) 07/14/22 01:45 Uncorrected WBC Count 5.2 x10E3/uL (4.5-11.0) 07/14/22 01:45 RBC 4.52 x10E6/uL (3.60-5.00) 07/14/22 01:45 Hgb 12.7 g/dL (11.8-15.4) 07/14/22 01:45 Hct 37.1 % (34.0-46.4) 07/14/22 01:45 MCV 82.2 fl (80-100) 07/14/22 01:45 MCH 28.2 pg (24.7-34.3) 07/14/22 01:45 MCHC 34.2 g/dL (32.0-35.0) 07/14/22 01:45 RDW 13.4 % (11.9-15.3) 07/14/22 01:45 Plt Count 207 x10E3/uL (150-450) 07/14/22 01:45 MPV 7.7 fl (6.3-10.7) 07/14/22 01:45 Neut % (Auto) 61.3 % (.) 07/14/22 01:45 Lymph % (Auto) 26.6 % (.) 07/14/22 01:45 [place] % (Auto) 10.0 % (.) 07/14/22 01:45 Eos % (Auto) 1.7 % (.) 07/14/22 01:45 Baso % (Auto) 0.4 % (.) 07/14/22 01:45 Neut # (Auto) 3.2 x10E3/uL (1.8-7.7) 07/14/22 01:45 Lymph # (Auto) 1.4 x10E3/uL (1.00-4.8) 07/14/22 01:45 [place] # (Auto) 0.5 x10E3/uL (0.0-0.8) 07/14/22 01:45 Eos # (Auto) 0.1 x10E3/uL (0.0-0.45) 07/14/22 01:45 Baso # (Auto) 0.0 x10E3/uL (0.0-0.2) 07/14/22 01:45 Nucleated RBC % (auto) 0.1 % (0-0.5) 07/14/22 01:45 PHA Creatinine Clear 40.68 07/14/22 01:45 Sodium 126 mmol/L (136-146) L 07/14/22 01:45 Potassium 3.4 mmol/L (3.5-5.1) L 07/14/22 01:45 Chloride 84 mmol/L (95-114) L 07/14/22 01:45 Carbon Dioxide 31.0 mmol/L (22.0-30.0) H 07/14/22 01:45 Anion Gap 14.4 mEq/L (6.0-15.0) 07/14/22 01:45 BUN 8 mg/dL (9-23) L 07/14/22 01:45 Creatinine 0.56 mg/dL (0.44-1.03) 07/14/22 01:45 Est GFR ( Amer) > 60 mL/Min 07/14/22 01:45 Est GFR (Non-Af Amer) > 60 mL/Min 07/14/22 01:45 Glucose 105 mg/dL (70-100) H 07/14/22 01:45 Calcium 10.3 mg/dL (8.2-10.2) H 07/14/22 01:45 Total Bilirubin 0.6 mg/dL (0.3-1.2) 07/14/22 01:45 AST 27 U/L (10-42) 07/14/22 01:45 ALT 21 U/L (10-60) 07/14/22 01:45 Alkaline Phosphatase 50 U/L (32-92) 07/14/22 01:45 Total Protein 6.7 gm/dL (6.1-7.9) 07/14/22 01:45 Albumin 4.1 gm/dL (3.2-5.5) 07/14/22 01:45 Globulin 2.6 gm/dL 07/14/22 01:45 Albumin/Globulin Ratio 1.6 07/14/22 01:45 Urine Color Yellow (Yellow) 07/14/22 00:59 Urine Appearance Clear (Clear) 07/14/22 00:59 Urine pH 7.0 (5.0-9.0) 07/14/22 00:59 Ur Specific [place] 1.004 (1.001-1.030) 07/14/22 00:59 Urine Protein Negative mg/dL (Negative) 07/14/22 00:59 Urine Glucose (UA) Normal mg/dL (Normal) 07/14/22 00:59 Urine Ketones Negative (Negative) 07/14/22 00:59 Urine Occult Blood Negative (Negative) 07/14/22 00:59 Urine Nitrite Negative (Negative) 07/14/22 00:59 Urine Bilirubin Negative (Negative) 07/14/22 00:59 Urine Urobilinogen Normal mg/dL (Normal) 07/14/22 00:59 Ur Leukocyte Esterase 2+ (Negative) H 07/14/22 00:59 Urine RBC 0-1 /HPF (0-4) 07/14/22 00:59 Urine WBC 3-4 /HPF (0-4) 07/14/22 00:59 Ur Squamous Epith Cells 0-1 /HPF (0-2) 07/14/22 00:59 Urine Bacteria None seen (None Seen) 07/14/22 00:59 Hyaline Casts None seen /LPF (0-8) 07/14/22 00:59 A&P - Hospitalist Assessment/Plan (1) Acute hyponatremia: Plan Assessment and plan *Euvolemic hyponatremia *Chronic weakness/decreased p.o. intake ? Admit to the floor ? Hyponatremia is most likely hydrochlorothiazide induced ? We will check urine osmolality/serum osmole's and urine sodium ? We will check TSH/free T4 ? Gentle hydration with normal saline ? Repeat BMP in the morning ? PT/OT *Chronic medical issues 1. Hypertension, mildly uncontrolled, stop hydrochlorothiazide and start patient on Norvasc/lisinopril 2. History of type 2 diabetes mellitus, hold metformin start patient on Lantus 10 units with sliding scale insulin *DVT prophylaxis with Lovenox Documented By: Nj Adorno MD 2 0502 Signed By: <Electronically signed by Nj Adorno MD> 07/14/[address] [facility] Work Phone: History general Narrative - Reported* Type Description Date Medical History diabetes mallitus Medical History hypertension Medical History hyperlipidemia Medical History osteopenia Medical History urethra stricture Surgical History Cervical disc surgery Surgical History appendectomy Surgical History cholecystectomy Surgical History hysterectomy Surgical History ganglion cyst lt knee Surgical History elbow surgery, rt Surgical History urethra stricture Hospitalization History see above [employer] Other History of Present illness Narrative* The patient states she has been generally stable since the last visit. Comorbid Illnesses: diabetesmellitus, hypertension and hyperlipidemia. * Symptoms: worsened chest pain at rest, denies dyspnea, stable fatigue, denies exercise intolerance,denies palpitations, denies edema, denies orthopnea, denies dizziness and denies orthostatic dizziness. * Her symptoms do not limit her activities. * Disease Monitoring: The patient has had a 7 pounds weight loss. * Medications: the patient is adherent with her medication regimen. She denies medication side effects. -[facility] DO Work Phone: [facility] Work Phone: [facility] Work Phone: Hospital Discharge instructions Additional Instructions Follow-up with your primary care doctor Return to ED if develop worsening symptoms or concernsMer[facility] Work Phone: Hospital Discharge instructions Additional Instructions Please keep a food diary at home and write down everything you are eating and the amount for 2 days Bring this to your follow-up appointment with your PCP for review STOP taking hydrochlorothiazideMer[facility] Health [facility] Work Phone: Hospital Discharge instructions Additional Instructions Take the antibiotics as prescribed to completion Use Colace and MiraLAX while you are taking the pain medications You Zofran as needed for nausea Make a follow-up appoint with your GI doctor for colonoscopy Return for fevers, worsening pain, blood in your stool, vomitingMer[facility] Work Phone: Hospital Discharge instructions Additional Instructions Continue current meds Follow-up with your private physician Return if symptoms are worseMer[facility] Work Phone: Hospital Discharge instructions No data available for this section [facility] Additional Instructions DISCHARGE INSTRUCTIONS FOR ENDOSCOPY FOR COLONOSCOPY: -Expect a gassy or full feeling after a colonoscopy. Report any NEW abdominal pain or vomiting. -Watch for rectal bleeding. You may have oozing, but notify the doctor if you pass clots. -It is important to keep your appointments for follow up examinations because polyps can grow back. FOR MCKEON/EGD/ERCP/PEG: -Your throat may feel sore today from the scope that the doctor passed through your throat to visualize your stomach. Take a throat lozenge or suck on ice to ease the discomfort. -Do NOT smoke. -You may notice some streaks of blood in your sputum if the doctor has taken a biopsy. Notify the doctor if you cough up large amounts of blood. -Expect a gassy or full feeling after esophagoscopy. Report any persistent pain or vomiting. -Take it easy today. You need not stay in bed, but avoid strenuous activities such as jogging. FOR SEDATION FOR 24 HOURS: -NO driving -Do NOT operate machinery such as power tools, lawn mowers, snow blowers, sewing machines, etc. -Avoid alcoholic beverages and drugs for allergies, nerves, or sleep. -Do NOT stay alone. Do NOT leave your child unattended. -Do NOT make important personal or business decisions or sign any legal documents. -Eat solid foods and drink liquids in smaller amounts than usual until normal appetite returns. If you should experience an upset stomach, liquids high in sugar content (soda, Tyler-aid, non-acid juices) are recommended. -You can resume normal activities tomorrow. FOLLOW UP Please call the office and make a follow up appointment to see me in 6-8 weeks. Mesalamine 4 p.o. every morning -Notify the doctor if you have any problems. -Office number [phone] Work Phone: Hospital Discharge instructions Additional Instructions If your symptoms return/worsen or you develop any further concerns or symptoms please see your doctor or return to the emergency department immediately.[facility] Work Phone: Progress note No data available for this section [facility] Reason for visit Narrative2 month f/u-referral for pelvic pain, [facility] L[employer] Other Chief Complaint MARITZA VICENTE is being seen for PER WP.* Add on d/t chest pain: 'I am having chest pain into shoulder and arm' * MARITZA VICENTE is being seen for advanced heart failure therapy and chest pain. * Patient presents to the office ambulatory with steady gait, is accompanied by her . * Last evaluated in clinic by myself May 2022. Following that visit, patient called into the office with chest discomfort and a June 2022 perfusion study showed low likelihood critical coronaryartery disease. * Patient presents to the office for earlier follow-up due to complaints of chest pain. Since last office visit, she has had 4 emergency department visits due to chest pain. She also reports in July2022 being diagnosed with general anxiety disorder. She is also followed by GI and recently diagnosed with irritable bowel syndrome. * She presents to the office today where she reports chest pain that is taking over her life . She reports a left-sided anterior chest wall into shoulder and left arm aching discomfort that is worsened with anxiety. There is no associated shortness of breath, nausea or diaphoresis. It can occur atrest, she has not utilized nitroglycerin. She has been told that this discomfort is from her anxiety . She is worried about the discomfort and has started to cut back on her activity level includinghousework and ADLs. She had cervical disc disease in the past and the shoulder pain is different. She had the discomfort when sitting in the exam room but was also so anxious to come here . Symptoms are occurring more days than not, they are not waking her from sleep. She has been educated on the use of nitroglycerin. * For the most part, symptoms are nonexertional and sometimes relieved with anxiolytics. Nonetheless,her quality of life and activity level are being significantly impacted. Reviewed recent cardiovascular testing including favorable perfusion study. To help alleviate anxiety and to better triage symp toms rather than frequent emergency department evaluations, we will proceed with cardiac catheterization to more clearly delineate coronary anatomy. Both patient and are very appreciative to this approach and are in agreement to proceed. * Due to progressive symptomatology the risks, benefits and procedure of cardiac catheterization plusor minus coronary intervention were discussed including but not limited to 1:1000 myocardial infarction, stroke, urgent coronary artery bypass graft and rare recorded : 1:100 vascular complications and contrast-induced acute renal failure. The patient is in agreement to proceed. * Patient presents with no IVP allergies. Patient has no contraindication to antiplatelet therapy, noplanned surgical procedures in the near future. Concomitant medications have been reviewed. Last renal function has been reviewed. Family History No Family History Records FoundUnknown Family Member Name Dates Details Family history of arterioscl erotic cardiovascular disease: Mother(V17.49, Z82.49) Status:Active Heart problem: Mother Status:Active Family history of diabetes m ellitus: Mother, Sibling(V18.0, Z83.3) Status:Active Unknown Family Member Name Dates Details Family history of arterioscl erotic cardiovascular disease: Mother(V17.49, Z82.49) Status:Active Heart problem: Mother Status:Active Family history of diabetes m ellitus: Mother, Sibling(V18.0, Z83.3) Status:Active Unknown Family Member Name Dates Details Family history of arterioscl erotic cardiovascular disease: Mother(V17.49, Z82.49) Status:Active Heart problem: Mother Status:Active Family history of diabetes m ellitus: Mother, Sibling(V18.0, Z83.3) Status:Active Unknown Family Member Name Dates Details Family history of arterioscl erotic cardiovascular disease: Mother(V17.49, Z82.49) Status:Active Heart problem: Mother Status:Active Family history of diabetes m ellitus: Mother, Sibling(V18.0, Z83.3) Status:Active Unknown Family Member Name Dates Details Family history of arterioscl erotic cardiovascular disease: Mother(V17.49, Z82.49) Status:Active Heart problem: Mother Status:Active Family history of diabetes m ellitus: Mother, Sibling(V18.0, Z83.3) Status:Active Unknown Family Member Name Dates Details Family history of arterioscl erotic cardiovascular disease: Mother(V17.49, Z82.49) Status:Active Heart problem: Mother Status:Active Family history of diabetes m ellitus: Mother, Sibling(V18.0, Z83.3) Status:Active Relationship Condition Age at Onset Recorded Date/T esteban brother Diabetes mellitus Unknown father Diabetes mellitus Unknown sister Diabetes mellitus Unknown Unknown Family Member Name Dates Details Family history of diabetes m ellitus: Mother, Sibling(V18.0, Z83.3) Status:Active Heart problem: Mother Status:Active Family history of arterioscl erotic cardiovascular disease: Mother(V17.49, Z82.49) Status:Active Chief Complaint and Reason for Visit Chief Complaint Dizziness, [place] edness R30.0 chest pain Chief Complaint Dizziness, [place] edness R30.0 chest pain pelvic pain Chief Complaint R30.0 chest pain pelvic pain urination issues Reason for Visit Acute hyponatremia AMS (altered mental status) Constipation Sacroiliitis Chief Complaint R30.0 chest pain pelvic pain urination issues Fall/Dizziness Reason for Visit Acute hyponatremia AMS (altered mental status) Constipation Sacroiliitis Chief Complaint urination issues Fall/Dizziness R30.0 pelvic pain Reason for Visit Acute hyponatremia AMS (altered mental status) Constipation Sacroiliitis Chief Complaint urination issues Fall/Dizziness R30.0 pelvic pain E11.9 R63.4 D50.9 Dysuria Reason for Visit Acute hyponatremia AMS (altered mental status) Constipation Sacroiliitis Chief Complaint pelvic pain E11.9 R63.4 D50.9 Dysuria Dysuria Chief Complaint pelvic pain E11.9 R63.4 D50.9 Dysuria Dysuria R10.2 Chief Complaint pelvic pain E11.9 R63.4 D50.9 Dysuria R30.0 R10.2 Blood sugar issues chest pain Chief Complaint pelvic pain E11.9 R63.4 D50.9 Dysuria R30.0 R10.2 Blood sugar issues chest pain r19.7 Chief Complaint Dysuria R30.0 R10.2 Blood sugar issues chest pain r19.7 Chief Complaint Blood sugar issues chest pain r19.7 Chest Pain, Hypertension Chief Complaint Blood sugar issues chest pain r19.7 Chest Pain, Hypertension Chest Pain, Hypertension Chief Complaint chest pain r19.7 Chest Pain, Hypertension Chest Pain, Hypertension Weight Loss, Diarrhea Reason for Visit Weight loss Chief Complaint lower abd pain Advance Directives No Advanced Directives Records Found Advance Directive Response Recorded Date/ Time Advance Directives No May 08 9:51pm Advance Directive Response Recorded Date/ Time Advance Directives No May 08 8:51pm Summary Purpose Additional Source Comments REASON FOR VISIT (unrecogniz ed section and content) #23 WHITE MISTY, COUGH, BOD Y ACHES, FATIGUE, DIZZINESSpossible UTIDYSURIANo InformationESTABLISH PT, Blaze Establish PrimaryH/A NOT GETTING BETTER, WORSE WHEN SHE EATS SOMETHINGNo InformationNo InformationNo InformationNo InformationReferral RequestNo InformationBP SXS GETTING WORSE, Blaze HypertensionNo InformationNo Informationmedications1 MONTH FOLLOW UPmedicationsdiabetes, wt loss, anemicNo InformationNo InformationNo InformationPAIN AND BURNING URINATINGNo InformationNo InformationNo InformationNo InformationFOLLOW UP GONZALEZ, Blaze AnxietyNo InformationPATIENT COMPLAINING OF DIARRHEA WITH RECENT DIVERTICULITISBlood Sugar SpikingNo InformationClinical Acute IllnessPt here at for follow up ibsClinical Acute IllnessClinical Acute IllnessClinicalwants to see dietitianRD Referral receivedClinical Acute IllnessFOLLOW UP EGD//COLONOSCOPYdizzyClinicalPatient here for 6 week follow up Care Teams (unrecognized sec tion and content) Team Status: Inactive Member Role Status Dates Benny Vick MD Primary Care Provider Active Zina Shrestha , Emergency Provider Active Team Status: Inactive Member Role Status Dates Benny Vick MD Primary Care Provider Active Arely Dasilva APRN Attending Provider Active Team Status: Inactive Member Role Status Dates Benny Vick MD Primary Care Provider Active Mario Fontana DO Emergency Provider Active Team Status: Active Member Role Status Dates Benny Vick MD Primary Care Provider Active Team Status: Active Member Role Status Dates NON STAFF Primary Care Provider Active Gregg Rios , Emergency Provider Active Nj Adorno MD Admit Provider, Attending Michael zuniga Active Team Status: Active Member Role Status Dates NON STAFF Primary Care Provider Active Team Status: Inactive Member Role Status Dates NON STAFF Primary Care Provider Active Gregg Rios DO Emergency Provider Active Nj Adorno MD Admit Provider Active Sarah Quevedo DO Attending Provider Active Team Status: Inactive Member Role Status Dates NON STAFF Primary Care Provider Active Jordy Berry MD Emergency Provider Active Team Status: Inactive Member Role Status Dates NON STAFF Primary Care Provider Active DAVIN LyonP-C Attending Provider Active Team Status: Inactive Member Role Status Dates NON STAFF Primary Care Provider Active Sergio Lopez DO RES Active Maico Carranza DO Emergency Provider Active Team Status: Inactive Member Role Status Dates DAVIN LyonP-C Attending Provider Active Team Status: Active Member Role Status Dates Alexia Dejesus P[employer] SOCKET ASSEMBLER-C Primary Care Provider, Atten ding Provider Active Team Status: Inactive Member Role Status Dates Alexia Dejesus PULL SOCKET ASSEMBLER-C Primary Care Provider Active Arely Dasilva APRN Attending Provider Active Team Status: Active Member Role Status Dates Alexiacuco Dejesus PULL SOCKET ASSEMBLER-C Primary Care Provider Active Team Status: Inactive Member Role Status Dates Alexia Dejesus PULL SOCKET ASSEMBLER-C Primary Care Provider, Atten ding Provider Active Team Status: Inactive Member Role Status Dates Alexia Dejesus PULL SOCKET ASSEMBLER-C Primary Care Provider Active Zian Shrestha DO Emergency Provider Active Team Status: Inactive Member Role Status Dates Alexia Dejesus PULL SOCKET ASSEMBLER-C Primary Care Provider Active Jordy Berry MD Emergency Provider Active Team Status: Inactive Member Role Status Dates NIKO Lyon-C Primary Care Provider Active Mark Win MD Attending Provider Active Team Status: Inactive Member Role Status Dates Alexia Dejesus PULL SOCKET ASSEMBLER-C Primary Care Provider Active Rory Rosas MD Attending Provider Active Team Status: Active Member Role Status Dates Wilian Moreno II MD Primary Care Provider Active Team Status: Inactive Member Role Status Dates Wilian Moreno II MD Primary Care Provider Active Ricki Sam , DO Emergency Provider Active Goals (unrecognized section and content) Goals may be documented in a n alternate section INFORMATION SOURCE (unrecogn ized section and content) DATE CREATED AUTHOR 07/14/2022 [facility] DATE CREATED AUTHOR AUTHOR'S ORGANIZ ATION 01/23/2023 [facility] DATE CREATED AUTHOR AUTHOR'S ORGANIZ ATION 02/14/2023 [facility] DATE CREATED AUTHOR AUTHOR'S ORGANIZ ATION 03/25/2023 [facility] DATE CREATED AUTHOR AUTHOR'S ORGANIZ ATION 09/12/2023 [facility] DATE CREATED AUTHOR AUTHOR'S ORGANIZ ATION 09/14/2023 [facility] DATE CREATED AUTHOR AUTHOR'S ORGANIZ ATION 09/19/[address] [facility] d[facility] Specialists [facility] FOR RECORDS PERTAINING TO PATIENTS WHO ARE OR HAVE BEEN ENROLLED IN A CHEMICAL DEPENDENCY/SUBSTANCEABUSE PROGRAM, SOME INFORMATION MAY BE OMITTED. This clinical summary was aggregated from multiple sources. Caution should be exercised in using it in the provision of clinical care. This summary normalizes information from multiple sources, and as a consequence, information in this document may materially change the coding, format and clinical context of patient data. In addition, data may be omitted in some cases. CLINICAL DECISIONS SHOULD BE BASED ON THE PRIMARY CLINICAL RECORDS. [facility] [employer] provides no warranty or guarantee of the accuracy or completeness of information in this document.
== END 2023-09-02 14:47 | disposition home or self-care (01) ==
PROVIDERS: Emergency Provider Emergency Medicine; PCP Internal Medicine
DX: R51.9 Headache, unspecified (principal); S09.8XXA Other specified injuries of head, initial encounter; W22.8XXA Striking against or struck by other objects, initial encounter; Z79.82 Long term (current) use of aspirin; Z79.899 Other long term (current) drug therapy
CPT/HCPCS: 70450; 99284

== ENCOUNTER 2023-09-04 13:41 | Outpatient (OUT) | payer MEDICARE, SELFPAY ==
--- NOTE | 2023-09-04 13:52 | CT_ITS ---
[address] [address] Patient Name: MAYRA VICENTE MRN: [id number] date: 1940 Sex: F Assigned Patient Location: CT Current Patient Location: CT Accession/Order Number: [id number] Exam Date: 09/04/2023 13:55 Report Date: 09/06/2023 12:12 At the request of: KARO BAKER Procedure: CT abdomen pelvis wo con EXAMINATION: CT abdomen pelvis wo con HISTORY: Flank Pain R10.9 Flank Pain R10.9. COMPARISON: Pelvis ultrasound 08/26/2023 TECHNIQUE: Unenhanced helical imaging of the abdomen and pelvis is performed. Multiplanar reconstructions are submitted. Dose reduction techniques were achieved by using: automated exposure control and/or adjustment of mA and /or kV according to patient size and/or use of iterative reconstruction technique. FINDINGS: ABDOMEN: LOWER CHEST:The imaged lung bases are clear. SOLID ORGANS: Liver morphology and density are normal. Scattered hepatic parenchymal calcifications and multiple hepatic cysts measure up to 2.9 x 2.6 cm in segment 4. Splenic granulomas also present. Spleen, adrenal glands, pancreas, gallbladder, biliary ducts are intact. Kidneys are symmetric with bilateral extrarenal pelves. No renal calculi or hydronephrosis. BOWEL: The stomach, proximal small bowel, and imaged colon are normal in course and caliber. No bowel wall thickening. MESENTERY AND RETROPERITONEUM: Prominent perisplenic and left retroperitoneal varices stable from earlier studies. There is no free fluid, fluid collection or adenopathy. The abdominal aorta and IVC are intact. Aortic caliber is normal with atherosclerotic disease present. SOFT TISSUE AND ABDOMINAL WALL: No acute abnormality. OSSEOUS STRUCTURES: No acute osseous abnormality. Patient is osteopenic. Lower lumbar facet arthropathy is present. PELVIS: GENITOURINARY: The distal ureters, urinary bladder, vagina, urethra, are within normal limits. No distal urinary tract calculi. BOWEL: Distal small bowel, rectosigmoid colon, appendix are intact. No bowel wall thickening. Sigmoid diverticular disease. No findings of diverticulitis. MESENTERY: There is no free fluid, fluid collection or adenopathy. SOFT TISSUE AND ABDOMINAL WALL: No acute abnormality. VASCULATURE: Noncontrast study OSSEOUS STRUCTURES: No acute osseous abnormality. CT/CT abdomen pelvis wo con IMPRESSION: 1. No acute abdominal or pelvic inflammatory process. 2. No urinary tract calculi or hydronephrosis. 3. Normal appendix. No adenopathy. 4. Sigmoid diverticular disease. No findings of diverticulitis. Electronically authenticated by: JASMIN MILLER Date: 09/06/2023 12:12
== END 2023-09-04 13:42 | disposition home or self-care (01) ==
LOC: CT 13:41
PROVIDERS: PCP Internal Medicine; Visit Provider Physician Assistant
DX: R10.9 Unspecified abdominal pain (principal); K57.30 Diverticulosis of large intestine without perforation or abscess without bleeding
CPT/HCPCS: 74176

== ENCOUNTER 2023-11-19 14:53 | Emergency (ER) | payer MEDICARE, SELFPAY ==
[2023-11-19] VITALS (20 sets, daily range): BP systolic 114–172; BP diastolic 57–70; PULSE 57–75; RESP 13–26; TEMP 36.5; O2SAT 96–99; BMI 18.1
--- NOTE | 2023-11-19 15:05 | ECG_ITS ---
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
--- NOTE | 2023-11-19 15:06 | ED_ITS ---
HPI - Chest Pain General Chief Complaint: Chest Pain Stated Complaint: chest pain/ high blood pressure Time Seen by Provider: 11/19/23 14:54 Source: family Mode of arrival: walk-in Limitations: no limitations History of Present Illness HPI narrative: 83-year-old female presents for chest pain. She has had it continuously for 4 hours and she was sitting in the recliner when it started. She points to the left side of her chest and her left shoulder to indicate where the pain is. No trauma fever cough shortness of breath or unusual activity. It does not go into her back or into her jaw. Related Data Home Medications Medication Instructions Recorded Confirmed atorvastatin 10 mg tablet 10 mg PO DAILY 09/02/23 11/19/23 buspirone 10 mg tablet 10 mg PO DAILY 09/02/23 11/19/23 lisinopril 30 mg tablet 30 mg PO DAILY 09/02/23 11/19/23 sitagliptin phosphate 50 mg tablet mg 09/02/23 (Januvia) famotidine 20 mg tablet 20 mg PO DAILY 11/19/23 11/19/23 magnesium 200 mg tablet 200 mg PO DAILY 11/19/23 11/19/23 Allergies Allergy/AdvReac Type Severity Reaction Status Date / Time codeine Allergy Unknown Verified 06/14/23 01:36 Review of Systems ROS Narrative A ten point review of systems is negative except as noted above. PFSH PFSH Social History Smoking status: Never smoker Exam Narrative Exam Narrative: Nurses note and vital signs reviewed and patient is not hypoxic. General: The patient appears well and in no apparent distress. Patient is resting comfortably on cart. Skin: Warm, dry, no pallor noted. There is no rash noted. Head: Normocephalic, atraumatic Eye: Normal conjunctiva, no drainage Ears, Nose, Mouth, and Throat: oral mucosa is moist. Nares patent. Cardiovascular: Regular Rate and Rhythm Respiratory: Patient is in no distress, no accessory muscle use, lungs are clear to auscultation, no wheezing, rales or rhonchi Back: non-tender GI: Soft and nontender Musculoskeletal: The patient has no evidence of calf tenderness, no pitting edema, symmetrical pulses noted bilaterally Neurological: A&O, normal speech Psychiatric: Cooperative Constitutional Vital Signs, click to edit/add: Last Vital Signs Temp 97.7 F 11/19/23 14:56 Pulse 63 11/19/23 17:40 Resp 15 11/19/23 17:40 BP 156/59 H 11/19/23 17:30 Pulse Ox 99 11/19/23 17:40 O2 Del Method Room Air 11/19/23 14:56 Course Vital Signs Vital signs: Vital Signs Temperature 97.7 F 11/19/23 14:56 Pulse Rate 65 11/19/23 14:56 Respiratory Rate 16 11/19/23 14:56 Blood Pressure 172/70 H 11/19/23 14:56 Pulse Oximetry 98 11/19/23 14:56 Oxygen Delivery Method Room Air 11/19/23 14:56 Temperature 97.7 F 11/19/23 14:56 Pulse Rate 63 11/19/23 17:40 Respiratory Rate 15 11/19/23 17:40 Blood Pressure 156/59 H 11/19/23 17:30 Pulse Oximetry 99 11/19/23 17:40 Oxygen Delivery Method Room Air 11/19/23 14:56 MDM - Chest Pain MDM Narrative Medical decision making narrative: 2 sets of troponin are negative. On February 01, 2023 she had a heart catheterization. I was able to obtain a copy of that report and she had no coronary artery disease whatsoever. All coronary vessels showed no stenosis at all. She was determined to have normal coronary arteries and a normal LV EF of 65%. At this point I do not have any clinical suspicion of coronary artery disease or acute coronary syndrome. She will be discharged home and will follow-up with her doctor. Treatment diagnosis and follow-up were discussed with the patient. Differential Diagnosis Differential diagnosis: Likely pneumothorax, stable angina, unstable angina pectoris, atypical chest pain, st elevation myocardial infarction, costochondritis and chest pain Medical Records Data Attestation: I reviewed the patient's medical records. Lab Data Attestation: I reviewed the patient's lab results. Labs: Lab Results 11/19/23 11/19/23 11/19/23 Range/Units 15:10 16:20 17:19 WBC 6.6 (4.0-11.0) 10^3/uL RBC 4.76 (4.20-5.40) 10^6/uL Hgb 13.9 (12.0-16.0) g/dL Hct 42.7 (36.0-48.0) % MCV 89.7 (81.0-99.0) fL MCH 29.2 (26.7-34.0) pg MCHC 32.6 (29.9-35.2) g/dL RDW 12.5 (11.0-15.0) % Plt Count 177 (150-450) 10^3/uL MPV 9.2 L (9.5-13.5) fL Neut % (Auto) 62.5 (43.0-75.0) % Lymph % (Auto) 26.4 (20.5-60.0) % Bowman % (Auto) 7.2 (1.7-12.0) % Eos % (Auto) 2.7 (0.9-7.0) % Baso % (Auto) 0.9 (0.2-2.0) % Neut # (Auto) 4.2 (1.4-6.5) 10^3/uL Lymph # (Auto) 1.8 (1.2-3.8) 10^3/uL Bowman # (Auto) 0.5 (0.3-0.8) 10^3/uL Eos # (Auto) 0.2 (0.0-0.7) 10^3/uL Baso # (Auto) 0.1 (0.0-0.1) 10^3/uL Abs Immat Gran (auto) 0.02 (0.00-0.03) 10^3/uL Imm/Tot Granulo (auto) 0.3 (0.0-0.5) % Sodium 137 (136-145) mmol/L Potassium 4.0 (3.5-5.1) mmol/L Chloride 99 (98-107) mmol/L Carbon Dioxide 32.7 H (21.0-32.0) mmol/L Anion Gap 9.3 BUN 17.0 (7.0-18.0) mg/dL Creatinine 0.73 (0.55-1.02) mg/dL Est GFR ( Amer) >60 (>=60) Est GFR (Non-Af Amer) >60 (>=60) BUN/Creatinine Ratio 23.3 Glucose 106 (74-106) mg/dL Calcium 9.5 (8.5-10.1) mg/dL Troponin I High Sens 4.1 4.4 (4.0-51.3) pg/mL POC Glucose 99 (74-106) mg/dL Imaging Data Chest x-ray: Radiologist's impression: ITS Impressions Chest X-Ray 11/19/23 15:35 IMPRESSION: No acute infiltrate or evidence of cardiac decompensation. The overall appearance of the chest is essentially unchanged. Electronically authenticated by: ADÁN ROBLEDO Date: 11/19/2023 15:56 ECG Data Attestation: I personally reviewed and interpreted this ECG as follows: (EKG on my interpretation shows normal sinus rhythm without ST segment changes. The rate is 58.) Heart Score History: Slightly/Non-Suspicious ECG: Normal Age: >65 years Risk Factors: 1 or 2 Risk Factors Troponin: <Normal Limit Total Heart Score Recommendations & Risks:: 3 Discharge Plan Discharge Chief Complaint: Chest Pain Clinical Impression: Atypical chest pain Patient Disposition: Home, Self-Care Time of Disposition Decision: 18:02 Condition: Good Mode of Transportation: Private Vehicle Prescriptions / Home Meds: No Action atorvastatin 10 mg tablet 10 mg PO DAILY buspirone 10 mg tablet 10 mg PO DAILY lisinopril 30 mg tablet 30 mg PO DAILY Januvia 50 mg tablet famotidine 20 mg tablet 20 mg PO DAILY magnesium 200 mg tablet 200 mg PO DAILY Instructions: Chest Pain (ED) Stand Alone Forms: Portal Instructions Referrals: NEAL BRENNER [Primary Care Provider] - 1 week
[2023-11-19 15:25] LABS: Basophils Absolute Auto 0.1 10^3/uL (0.0-0.1); Basophils Percent Auto 0.9 % (0.2-2.0); Eosinophils Absolute Auto 0.2 10^3/uL (0.0-0.7); Eosinophils Percent Auto 2.7 % (0.9-7.0); Hematocrit 42.7 % (36.0-48.0); Hemoglobin 13.9 g/dL (12.0-16.0); Immature Granulocytes Abs Auto 0.02 10^3/uL (0.00-0.03); Immature Granulocytes Pct Auto 0.3 % (0.0-0.5); Lymphocytes Absolute Auto 1.8 10^3/uL (1.2-3.8); Lymphocytes Percent Auto 26.4 % (20.5-60.0); Mean Corpuscular HGB Conc 32.6 g/dL (29.9-35.2); Mean Corpuscular Hemoglobin 29.2 pg (26.7-34.0); Mean Corpuscular Volume 89.7 fL (81.0-99.0); Mean Platelet Volume 9.2 fL (9.5-13.5); Monocytes Absolute Auto 0.5 10^3/uL (0.3-0.8); Monocytes Percent Auto 7.2 % (1.7-12.0); Neutrophils Absolute Auto 4.2 10^3/uL (1.4-6.5); Neutrophils Percent Auto 62.5 % (43.0-75.0); Platelet Count 177 10^3/uL (150-450); Red Blood Count 4.76 10^6/uL (4.20-5.40); Red Cell Distribution Width 12.5 % (11.0-15.0); White Blood Count 6.6 10^3/uL (4.0-11.0)
[2023-11-19] MEDS: NITROGLYCERIN 0.4 MG BOTTLE SL (15:31)
[2023-11-19] MEDS: ASPIRIN 325 MG TABLET.DR PO (15:31)
--- NOTE | 2023-11-19 15:35 | XR_ITS ---
The [address] [address] Patient Name: MAYRA VICENTE MRN: [id number] date: 1940 Sex: F Assigned Patient Location: ER Current Patient Location: ER Accession/Order Number: [id number] Exam Date: 11/19/2023 15:30 Report Date: 11/19/2023 15:56 At the request of: MAGGI VICTORIA Procedure: XR chest 1V EXAM: XR chest 1V at 1525 hours HISTORY: CP COMPARISON: 06/14/2023 TECHNIQUE: AP upright portable chest x-ray FINDINGS: The heart is not enlarged and the vasculature is not distended. No acute infiltrate, effusion or pneumothorax is identified. The osseous structures are grossly intact. Hardware projects over the lower cervical spine. XR/XR chest 1V IMPRESSION: No acute infiltrate or evidence of cardiac decompensation. The overall appearance of the chest is essentially unchanged. Electronically authenticated by: ADÁN ROBLEDO Date: 11/19/2023 15:56
[2023-11-19 15:38] LABS: Anion Gap 9.3; BUN Creatinine Ratio 23.3; Calcium 9.5 mg/dL (8.5-10.1); Carbon Dioxide 32.7 mmol/L (21.0-32.0); Chloride 99 mmol/L (98-107); Estimated GFR (African America >60 (>=60); Estimated GFR (Non-African Ame >60 (>=60); Glucose 106 mg/dL (74-106); Sodium 137 mmol/L (136-145); Troponin I High Sensitivity 4.1 pg/mL (4.0-51.3)
--- NOTE | 2023-11-19 15:55 | PC.NURSE ---
1550 - ptstates chest pain is not better -- dr sidhu verbal order to give another nitro tab SL.
[2023-11-19 16:47] LABS: Troponin I High Sensitivity 4.4 pg/mL (4.0-51.3)
[2023-11-19 17:20] LABS: Glucometer 99 mg/dL (74-106)
== END 2023-11-19 18:22 | disposition home or self-care (01) ==
PROVIDERS: Emergency Provider Emergency Medicine; PCP Internal Medicine
DX: R07.89 Other chest pain (principal); Z79.899 Other long term (current) drug therapy
CPT/HCPCS: 36415; 71045; 80048; 84484; 85025; 93005; 99285

== ENCOUNTER 2024-04-25 15:24 | Emergency (ER) | payer MEDICARE, SELFPAY ==
[2024-04-25] VITALS (22 sets, daily range): BP systolic 116–135; BP diastolic 49–82; PULSE 52–76; TEMP 37.1; O2SAT 95–98; BMI 19.8
--- NOTE | 2024-04-25 15:35 | ECG_ITS ---
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
--- NOTE | 2024-04-25 15:36 | CT_ITS ---
The [address] [address] Patient Name: MAYRA VICENTE MRN: [id number] date: 1940 Sex: F Assigned Patient Location: ER Current Patient Location: ER Accession/Order Number: [id number] Exam Date: 04/25/2024 15:57 Report Date: 04/25/2024 16:16 At the request of: MAYTE DAVILA Procedure: CT head/brain wo con EXAM: CT head/brain wo con HISTORY: ams COMPARISON: CT brain 09/02/2023 TECHNIQUE: Axial CT scans through the head were obtained without IV contrast administration. Dose reduction techniques were achieved by using: automated exposure control and/or adjustment of mA and /or kV according to patient size and/or use of iterative reconstruction technique. FINDINGS: There is no evidence of acute intracranial hemorrhage or abnormal extra-axial fluid collection. No mass effect or midline shift is seen. There is no evidence of large acute territorial infarction. There is no hydrocephalus. Mildly enlarged ventricles and sulci, consistent with age appropriate cerebral atrophy. Mild decreased attenuation of the supratentorial white matter, likely represents chronic microvascular ischemia. To the limit of CT, the posterior fossa appears unremarkable. No definite acute fracture is identified. Soft tissues are unremarkable. The visualized orbits show no abnormality. The visualized paranasal sinuses show no air-fluid level. Mastoid air cells are clear. CT/CT head/brain wo con IMPRESSION: No CT evidence of acute intracranial abnormality. If there is sufficient clinical concern for acute brain parenchymal pathology, consider MRI for further evaluation. Mild chronic microvascular ischemia and involutional changes. Electronically authenticated by: FERNANDO UNLU Date: 04/25/2024 16:16
[2024-04-25 15:48] LABS: Basophils Percent Auto 0.5 % (0.2-2.0); Eosinophils Absolute Auto 0.1 10^3/uL (0.0-0.7); Eosinophils Percent Auto 1.5 % (0.9-7.0); Hematocrit 40.4 % (36.0-48.0); Hemoglobin 13.2 g/dL (12.0-16.0); Immature Granulocytes Abs Auto 0.02 10^3/uL (0.00-0.03); Immature Granulocytes Pct Auto 0.3 % (0.0-0.5); Lymphocytes Absolute Auto 1.7 10^3/uL (1.2-3.8); Lymphocytes Percent Auto 28.3 % (20.5-60.0); Mean Corpuscular HGB Conc 32.7 g/dL (29.9-35.2); Mean Corpuscular Volume 88.8 fL (81.0-99.0); Mean Platelet Volume 9.5 fL (9.5-13.5); Monocytes Absolute Auto 0.4 10^3/uL (0.3-0.8); Monocytes Percent Auto 7.5 % (1.7-12.0); Neutrophils Absolute Auto 3.6 10^3/uL (1.4-6.5); Neutrophils Percent Auto 61.9 % (43.0-75.0); Platelet Count 179 10^3/uL (150-450); Red Blood Count 4.55 10^6/uL (4.20-5.40); Red Cell Distribution Width 12.6 % (11.0-15.0); White Blood Count 5.8 10^3/uL (4.0-11.0)
--- NOTE | 2024-04-25 15:49 | ED_ITS ---
HPI - Dizziness General Chief Complaint: Dizziness Stated Complaint: Dizziness Time Seen by Provider: 04/25/24 15:35 Source: patient Mode of arrival: Wheelchair History of Present Illness HPI Narrative: The patient coming to the ER with almost 1 week history of dizziness she mentioned that this dizziness initially was detected by her primary care doctor on outpatient visit and her blood pressure medication was decreased from 40 mg of lisinopril to 20 and the patient mentioned that over the last few days that she continues to have dizziness The patient already had her blood pressure medication lowered by her primary care doctor because of her blood pressure was in the lower normal when she was evaluated in her primary care office visit Patient mentioned that she have a history of hyponatremia and although she is hydrating herself well she is worried that her sodium is low No nausea no vomiting no diarrhea Just while she is talking to us she mentioned that in triage she just feels like she is having difficulty finding words although right now she is not having any complaints She did mention that she have no weakness in her upper or lower extremity no chest pain no abdominal pain no fever chills coughing or difficulty breathing Related Data Home Medications ?Medication ?Instructions ?Recorded ?Confirmed atorvastatin 10 mg tablet 10 mg PO DAILY 09/02/23 11/19/23 buspirone 10 mg tablet 10 mg PO DAILY 09/02/23 11/19/23 lisinopril 30 mg tablet 30 mg PO DAILY 09/02/23 11/19/23 sitagliptin phosphate 50 mg tablet mg 09/02/23 (Januvia) famotidine 20 mg tablet 20 mg PO DAILY 11/19/23 11/19/23 magnesium 200 mg tablet 200 mg PO DAILY 11/19/23 11/19/23 Allergies Allergy/AdvReac Type Severity Reaction Status Date / Time codeine Allergy Unknown Verified 06/14/23 01:36 Review of Systems ROS Status of ROS 10 or more systems reviewed and unremark able except as noted in history and below PFSH PFS Social History Smoking status: Never smoker Exam Narrative Exam Narrative: Nurses notes and vital signs reviewed and patient is not hypoxic. General: Well-appearing and in no apparent distress. Skin: Warm, dry, no pallor noted. No rash. Head: Normocephalic, atraumatic. Neck: Supple, non-tender. Eye: Pupils are equal, round and EOMI. No scleral icterus. Ears, Nose, Mouth, and Throat: TM are clear, no nasal mucosal hypertrophy. Oral mucosa is moist, no posterior oropharynx erythema, uvula is mid-line Cardiovascular: Regular Rate and Rhythm without murmur, gallop or rub. Respiratory: No accessory muscle use or respiratory distress. Lungs are clear to auscultation, no wheezing, rales or rhonchi Chest Wall: no tenderness Back: No midline thoracic or lumbar vertebral tenderness. No CVA tenderness Musculoskeletal: normal ROM, no calf or popliteal tenderness, no lower extremity edema/swelling GI: Abdomen is soft, non-distended. Normal bowel sounds. No masses appreciated. No tenderness to palpation. No rebound, guarding, or rigidity noted. Neurological: A&O x4. No cranial nerve dysfunction observed. No truncal ataxia. Moves all extremities. Sensation intact. Psychiatric: Cooperative and interactive. Normal mood and affect. Constitutional Vital Signs, click to edit/add: Last Vital Signs Temp 98.7 F 04/25/24 15:27 Pulse 57 L 04/25/24 17:40 Resp 15 04/25/24 17:40 BP 132/58 04/25/24 15:53 Pulse Ox 98 04/25/24 16:40 O2 Del Method Room Air 04/25/24 15:40 Course Vital Signs Vital signs: Vital Signs Temperature 98.7 F 04/25/24 15:27 Pulse Rate 67 04/25/24 15:27 Respiratory Rate 16 04/25/24 15:27 Blood Pressure 134/82 04/25/24 15:27 Pulse Oximetry 97 04/25/24 15:27 Oxygen Delivery Method Room Air 04/25/24 15:27 Temperature 98.7 F 04/25/24 15:27 Pulse Rate 57 L 04/25/24 17:40 Respiratory Rate 15 04/25/24 17:40 Blood Pressure 132/58 04/25/24 15:53 Pulse Oximetry 98 04/25/24 16:40 Oxygen Delivery Method Room Air 04/25/24 15:40 MDM - Dizziness MDM Narrative Medical decision making narrative: The patient EKG showing sinus rhythm with a heart rate of [address] elevation or depression CT head showed no acute pathology and the patient neuroexam was completely benign in the ER CBC and chemistry showed normal sodium with a rest of the workup showing no acute pathology including a negative troponin Right now the patient admitted to drinking at least 3 cups of coffee daily as well as 1 cup of tea I did explain to her that she is to hydrate better especially with her hypertension dehydration could be the reason for her symptoms It was noted that the patient heart rate changes from 70-99 when standing up which could be mostly secondary to hydration being orthostatic although her blood pressure was holding normal Right now the patient will continue hydration she was provided with only 500 cc in the ER after which she was feeling better Her generalized weakness could be secondary to mild viral infection in addition to dehydration the patient will come back in case of any new symptoms otherwise she will follow-up with her doctor The patient is to follow up with primary care physician in next 2-3 days or to return to the emergency department should any of the signs or symptoms worsen or new symptoms develop. The patient agrees with the following Diagnosis and Treatment plan and the patient will be discharged home. Lab Data Labs: Lab Results 04/25/24 Range/Units 15:36 WBC 5.8 (4.0-11.0) 10^3/uL RBC 4.55 (4.20-5.40) 10^6/uL Hgb 13.2 (12.0-16.0) g/dL Hct 40.4 (36.0-48.0) % MCV 88.8 (81.0-99.0) fL MCH 29.0 (26.7-34.0) pg MCHC 32.7 (29.9-35.2) g/dL RDW 12.6 (11.0-15.0) % Plt Count 179 (150-450) 10^3/uL MPV 9.5 (9.5-13.5) fL Neut % (Auto) 61.9 (43.0-75.0) % Lymph % (Auto) 28.3 (20.5-60.0) % [place] % (Auto) 7.5 (1.7-12.0) % Eos % (Auto) 1.5 (0.9-7.0) % Baso % (Auto) 0.5 (0.2-2.0) % Neut # (Auto) 3.6 (1.4-6.5) 10^3/uL Lymph # (Auto) 1.7 (1.2-3.8) 10^3/uL [place] # (Auto) 0.4 (0.3-0.8) 10^3/uL Eos # (Auto) 0.1 (0.0-0.7) 10^3/uL Baso # (Auto) 0.0 (0.0-0.1) 10^3/uL Abs Immat Gran (auto) 0.02 (0.00-0.03) 10^3/uL Imm/Tot Granulo (auto) 0.3 (0.0-0.5) % PT 11.8 H (9.0-11.6) sec INR 1.13 Sodium 135 L (136-145) mmol/L Potassium 4.3 (3.5-5.1) mmol/L Chloride 98 (98-107) mmol/L Carbon Dioxide 31.7 (21.0-32.0) mmol/L Anion Gap 9.6 BUN 11.0 (7.0-18.0) mg/dL Creatinine 0.74 (0.55-1.02) mg/dL Est GFR ( Amer) >60 (>=60) Est GFR (Non-Af Amer) >60 (>=60) BUN/Creatinine Ratio 14.9 Glucose 142 H (74-106) mg/dL Calcium 9.1 (8.5-10.1) mg/dL Magnesium 2.0 (1.8-2.4) mg/dL Total Bilirubin 0.5 (0.2-1.0) mg/dL AST 21 (15-37) U/L ALT 30 (14-59) U/L Alkaline Phosphatase 57 (46-116) U/L Troponin I High Sens 4.4 (4.0-51.3) pg/mL Total Protein 6.6 (6.4-8.2) g/dL Albumin 3.5 (3.4-5.0) g/dL Globulin 3.1 g/dL Albumin/Globulin Ratio 1.1 Discharge Plan Discharge Stand Alone Forms: Portal Instructions Chief Complaint: Dizziness Clinical Impression: Orthostatic hypotension, Dehydration Patient Disposition: Home, Self-Care Time of Disposition Decision: 18:23 Condition: Good Prescriptions / Home Meds: No Action atorvastatin 10 mg tablet 10 mg PO DAILY buspirone 10 mg tablet 10 mg PO DAILY lisinopril 30 mg tablet 30 mg PO DAILY Januvia 50 mg tablet famotidine 20 mg tablet 20 mg PO DAILY magnesium 200 mg tablet 200 mg PO DAILY Print Language: Sudanese Instructions: Dehydration (ED), Hypotension (DC) Referrals: NEAL BRENNER [Primary Care Provider] - 1 week
[2024-04-25 16:02] LABS: INR 1.13; Prothrombin Time 11.8 sec (9.0-11.6)
[2024-04-25 16:10] LABS: Alanine Aminotransferase 30 U/L (14-59); Albumin Globulin Ratio 1.1; Albumin Level 3.5 g/dL (3.4-5.0); Alkaline Phosphatase 57 U/L (46-116); Anion Gap 9.6; Aspartate Amino Transferase 21 U/L (15-37); BUN Creatinine Ratio 14.9; Bilirubin Total 0.5 mg/dL (0.2-1.0); Calcium 9.1 mg/dL (8.5-10.1); Carbon Dioxide 31.7 mmol/L (21.0-32.0); Chloride 98 mmol/L (98-107); Estimated GFR (African America >60 (>=60); Estimated GFR (Non-African Ame >60 (>=60); Globulin 3.1 g/dL; Glucose 142 mg/dL (74-106); Potassium 4.3 mmol/L (3.5-5.1); Sodium 135 mmol/L (136-145); Total Protein 6.6 g/dL (6.4-8.2); Troponin I High Sensitivity 4.4 pg/mL (4.0-51.3)
[2024-04-25] MEDS: 0.9 % SODIUM CHLORIDE 1,000 ML 500 ML IV (16:48)
== END 2024-04-25 18:32 | disposition home or self-care (01) ==
PROVIDERS: Emergency Provider Emergency Medicine; PCP Internal Medicine
DX: E86.0 Dehydration (principal); I95.1 Orthostatic hypotension; I10 Essential (primary) hypertension; R53.1 Weakness
CPT/HCPCS: 36415; 70450; 80053; 83735; 84484; 85025; 85610; 93005; 96360; 99285

== ENCOUNTER 2024-08-24 15:19 | Emergency (ER) | payer MEDICARE, SELFPAY ==
[2024-08-24 15:28] VITALS: BP 142/52; PULSE 82; TEMP 36.4; O2SAT 98; BMI 26.5
[2024-08-24 15:58] LABS: Bilirubin Urine NEGATIVE (NEGATIVE); Blood Urine NEGATIVE (NEGATIVE); Clarity Urine CLEAR (CLEAR); Color Urine YELLOW (YELLOW); Glucose Urine UA NEGATIVE (NEGATIVE); Ketones Urine TRACE mg/dL (NEGATIVE); Leukocyte Esterase Urine NEGATIVE (NEGATIVE); Nitrite Urine NEGATIVE (NEGATIVE); Protein Urine NEGATIVE (NEG/TRACE); Specific Gravity Urine 1.015 (1.005-1.025); Urobilinogen Urine 0.2 EU/dL (0.2-1.0)
[2024-08-24 15:59] LABS: Urine Microscopic Indicated NO
--- NOTE | 2024-08-24 16:00 | ED_ITS ---
HPI HPI - General Adult General Chief complaint: Urogenital-Female Stated complaint: VAGINAL BURNING AND PAIN Time Seen by Provider: 08/24/24 15:35 Source: patient Mode of arrival: walk-in History of Present Illness HPI narrative: Eusebia CHANG was a witness to the entire HPI and physical exam initially. Patient is a 84yo who is presenting to the ER with chief complaint vaginal pain, no burning, no vaginal discharge, lesions, rashes, odors, any other acute complaints. Patient denies any type of trauma to the pelvic area. Patient has no abdominal pain, nausea or vomiting. Patient has urethral stretching that is done every several years by Dr. Coy. Dr. Coy is patient's urologist. Patient has no fever or chills. No diarrhea, constipation, no other acute complaints All systems are negative except as noted/marked. All systems reviewed and otherwise negative. Nurses note and vital signs reviewed and patient is not hypoxic. General: The patient appears well and in no apparent distress. Patient is resting comfortably on cart. Patient is not toxic, lethargic, or listless Skin: Warm, dry, no pallor noted. There is no rash noted. No petechiae, purpura. Head: Normocephalic, atraumatic Eye: Normal conjunctiva, no drainage, EOMI. PERRL Ears, Nose, Mouth, and Throat: oral mucosa is moist. Nares patent. Mouth without vesicles. Cardiovascular: Regular Rate and Rhythm, no murmur, gallop, rub Respiratory: Patient is in no distress, no accessory muscle use, lungs are clear to auscultation, no wheezing, rales or rhonchi Back: non-tender, no CVA tenderness bilaterally to percussion. No CT LS midline pain GI: no tenderness to palpation, no masses appreciated. No rebound, guarding, or rigidity noted. No distention : Eusebia CHANG was at bedside during the entire physical exam of the pelvic area. Patient has no abscess, lesions, cyst to the external vaginal area. With patient's labia majora open, patient has no rash, Bartholin cyst, lesion, mass, abscess noted. Patient does have minimal redness to the inner left labia majora fold that does not cause patient any pain. Patient states the pain is inside the vaginal cavity. With labia majora and minora open, has no obvious protruding prolapse, abscess, foreign body, drainage, no other acute abnormality seen. Musculoskeletal: Patient has full range of motion of all of the extremities, no motor, sensory, or focal neurological deficits Neurological: A&O x4, normal speech Psychiatric: Cooperative Related Data Home Medications ?Medication ?Instructions ?Recorded ?Confirmed atorvastatin 10 mg tablet 10 mg PO DAILY 09/02/23 11/19/23 buspirone 10 mg tablet 10 mg PO DAILY 09/02/23 11/19/23 lisinopril 30 mg tablet 30 mg PO DAILY 09/02/23 11/19/23 sitagliptin phosphate 50 mg tablet mg 09/02/23 (Januvia) famotidine 20 mg tablet 20 mg PO DAILY 11/19/23 11/19/23 magnesium 200 mg tablet 200 mg PO DAILY 11/19/23 11/19/23 Previous Rx's ?Medication ?Instructions ?Recorded lidocaine HCl 2 % mucosal solution 1 applic mucous membrane Q3H PRN 08/24/24 (Lidocaine Viscous) pain #100 mL Allergies Allergy/AdvReac Type Severity Reaction Status Date / Time codeine Allergy Unknown Verified 06/14/23 01:36 Opioid HPI Opioid Management Most Recent Opioid Data: Last Pain Scale 3 11/19/23 16:22 11/19/23 PFSH PFS Social History Smoking status: Never smoker Little interest or pleasure in doing things: not at all Feeling down, depressed, or hopeless: not at all Exam Constitutional Vital Signs, click to edit/add: Last Vital Signs Temp 97.5 F L 08/24/24 15:28 Pulse 82 08/24/24 15:28 Resp 18 08/24/24 15:28 BP 142/52 H 08/24/24 15:28 Pulse Ox 98 08/24/24 15:28 Course Vital Signs Vital signs: Vital Signs Temperature 97.5 F L 08/24/24 15:28 Pulse Rate 82 08/24/24 15:28 Respiratory Rate 18 08/24/24 15:28 Blood Pressure 142/52 H 08/24/24 15:28 Pulse Oximetry 98 08/24/24 15:28 Temperature 97.5 F L 08/24/24 15:28 Pulse Rate 82 08/24/24 15:28 Respiratory Rate 18 08/24/24 15:28 Blood Pressure 142/52 H 08/24/24 15:28 Pulse Oximetry 98 08/24/24 15:28 Medical Decision Making MDM Narrative Medical decision making narrative: LUPILLO RN was at bedside at 4:00 PM and I asked the question if she has had any intercourse in last week, any foreign bodies, toys, trauma, accidents, or any other type of trauma to the pelvic or vaginal area, patient stated no. She also stated that her symptoms have been gradually getting worse over the past 5 to 6 days. Patient has a urine obtained, viscous lidocaine was also ordered to have the patient placed inside vaginal canal to see if this helps relieve some of her pain. Patient is very adamant there is no burning. 1709 patient did have relief with viscous lidocaine that was applied by herself. I did speak to Dr. Ashley, he is aware the patient, agrees with not doing a pelvic exam at this time, they will do 1 in the office and take biopsies if needed. They agree with using viscous lidocaine. Patient will continue Premarin. Patient will be seen on Saturday for further testing and evaluation. Patient's urine shows no acute signs of infection patient is comfortable with this plan, feels better after the viscous lidocaine was applied intravaginally Lab Data Labs: Lab Results 08/24/24 Range/Units 15:45 Urine Color Yellow (YELLOW) Urine Clarity Clear (CLEAR) Urine pH 7.0 (5.0-9.0) Ur Specific [place] 1.015 (1.005-1.025) Urine Protein Negative (NEG/TRACE) mg/dL Urine Glucose (UA) Negative (NEGATIVE) mg/dL Urine Ketones Trace A (NEGATIVE) mg/dL Urine Occult Blood Negative (NEGATIVE) Urine Nitrite Negative (NEGATIVE) Urine Bilirubin Negative (NEGATIVE) Urine Urobilinogen 0.2 (0.2-1.0) EU/dL Ur Leukocyte Esterase Negative (NEGATIVE) Discharge Plan Discharge Chief Complaint: Urogenital-Female Clinical Impression: Vaginitis, Pain pelvic Patient Disposition: Home, Self-Care Time of Disposition Decision: 17:00 Condition: Fair Prescriptions / Home Meds: New lidocaine HCl [Lidocaine Viscous] 2 % solution 1 applic mucous membrane Q3H PRN (Reason: pain) Qty: 100 0RF No Action atorvastatin 10 mg tablet 10 mg PO DAILY buspirone 10 mg tablet 10 mg PO DAILY lisinopril 30 mg tablet 30 mg PO DAILY Januvia 50 mg tablet famotidine 20 mg tablet 20 mg PO DAILY magnesium 200 mg tablet 200 mg PO DAILY Print Language: Khmer Instructions: Pelvic Pain (ED) Additional Instructions: Apply 3 to 5 mL to the vaginal canal every 4-6 hours as needed for vaginal pain. Continue to follow-up with Dr. Ashley and EDGARDO Leonard in the office Saturday for further evaluation and testing Referrals: Evangelist Ashley DO [Physician] - 1 week NEAL BRENNER [Primary Care Provider] - 1 week
[2024-08-24] MEDS: LIDOCAINE VISCOUS 2% 15 ML SOLUTION TOPICAL (16:15)
== END 2024-08-24 17:16 | disposition home or self-care (01) ==
PROVIDERS: Emergency Provider Emergency Medicine; PCP Internal Medicine
DX: N76.0 Acute vaginitis (principal); R10.2 Pelvic and perineal pain
CPT/HCPCS: 81003; 99283

== ENCOUNTER 2025-03-23 16:01 | Emergency (ER) | payer MEDICARE, SELFPAY ==
[2025-03-23] VITALS (29 sets, daily range): BP systolic 125–185; BP diastolic 61–76; PULSE 55–75; TEMP 36; O2SAT 90–99; BMI 20.1
--- NOTE | 2025-03-23 16:11 | ECG_ITS ---
[facility] Test Date: 2025-03-23 Pat Name: MAYRA VICENTE Department: Room: - Gender: Female Registration Coordinator: : 1940 Requested By: NEAL BRENNER Order Number: [id number] Reading MD: LENKA FLETCHER M.D. Measurements Intervals [place] Rate: 60 P: 49 GA: 186 QRS: 61 QRSD: 86 T: 65 QT: 386 QTc: 387 Interpretive Statements 1100 Sinus rhythm 9110 normal ECG Compared to ECG 04/25/2024 15:35:13 No significant changes Electronically Signed On 03-23-2025 21:43:39 EDT by LENKA FLETCHER M.D.
--- NOTE | 2025-03-23 16:21 | ED.CHESTPAI1 ---
HPI - Chest Pain General Chief Complaint: Chest Pain Stated Complaint: Back Pain Time Seen by Provider: 03/23/25 16:10 Source: patient Mode of arrival: walk-in Limitations: no limitations History of Present Illness HPI narrative: The patient is 84 years old female is coming to the ER with a right-sided chest pain, the patient apparently was doing some grocery shopping and was not doing any kind of exertion she felt tired while walking around in the grocery shop, the patient when she came back home she felt some right-sided ear pain as well as neck pain and headache on the right side in addition to posterior back pain There was no fall or trauma there was no fever chills or any cough or any difficulty breathing The patient admits that she sometimes gets chest pain with anxiety attacks but that is usually different Related Data Home Medications ?Medication ?Instructions ?Recorded ?Confirmed atorvastatin 10 mg tablet 10 mg PO DAILY 09/02/23 03/23/25 buspirone 10 mg tablet 10 mg PO DAILY 09/02/23 03/23/25 lisinopril 30 mg tablet 10 mg PO DAILY 09/02/23 03/23/25 sitagliptin phosphate 50 mg tablet 50 mg PO DAILY 09/02/23 03/23/25 (Januvia) famotidine 20 mg tablet 20 mg PO Q12H 11/19/23 03/23/25 magnesium 200 mg tablet 200 mg PO DAILY 11/19/23 03/23/25 gabapentin 300 mg capsule 300 mg PO DAILY 03/23/25 03/23/25 Allergies Allergy/AdvReac Type Severity Reaction Status Date / Time codeine Allergy Unknown Unknown Verified 03/23/25 16:10 Review of Systems ROS Status of ROS 10 or more systems reviewed and unremarkable except as noted in history and below [facility] Social History Smoking status: Never smoker Little interest or pleasure in doing things: not at all Feeling down, depressed, or hopeless: not at all Exam Narrative Exam Narrative: Nurses notes and vital signs reviewed and patient is not hypoxic. General: Well-appearing and in no apparent distress. Skin: Warm, dry, no pallor noted. No rash. Head: Normocephalic, atraumatic. Neck: Supple, right paraspinal muscle tenderness Eye: Pupils are equal, round and EOMI. No scleral icterus. Ears, Nose, Mouth, and Throat: The patient have a rupture of the right eardrum left eardrum is normal ,oral mucosa is moist, no posterior oropharynx erythema, uvula is mid-line Cardiovascular: Regular Rate and Rhythm without murmur, gallop or rub. Respiratory: No accessory muscle use or respiratory distress. Lungs are clear to auscultation, no wheezing, rales or rhonchi Chest Wall: Subjective tenderness upon palpation of the posterior aspect of the chest wall and no rash seen Back: No midline thoracic or lumbar vertebral tenderness. No CVA tenderness Musculoskeletal: normal ROM, no calf or popliteal tenderness, no lower extremity edema/swelling GI: Abdomen is soft, non-distended. Normal bowel sounds. No masses appreciated. No tenderness to palpation. No rebound, guarding, or rigidity noted. Neurological: A&O x4. No cranial nerve dysfunction observed. No truncal ataxia. Moves all extremities. Sensation intact. Psychiatric: Cooperative and interactive. Normal mood and affect. Constitutional Vital Signs, click to edit/add: Last Vital Signs Temp 96.8 F L 03/23/25 16:05 Pulse 65 03/23/25 16:05 Resp 18 03/23/25 16:05 BP 152/62 H 03/23/25 16:20 Pulse Ox 97 03/23/25 16:05 O2 Del Method Room Air 03/23/25 16:05 Course Vital Signs Vital signs: Vital Signs Temperature 96.8 F L 03/23/25 16:05 Pulse Rate 65 03/23/25 16:05 Respiratory Rate 18 03/23/25 16:05 Blood Pressure 185/76 H 03/23/25 16:05 Pulse Oximetry 97 03/23/25 16:05 Oxygen Delivery Method Room Air 03/23/25 16:05 Temperature 96.8 F L 03/23/25 16:05 Pulse Rate 65 03/23/25 16:05 Respiratory Rate 18 03/23/25 16:05 Blood Pressure 152/62 H 03/23/25 16:20 Pulse Oximetry 97 03/23/25 16:05 Oxygen Delivery Method Room Air 03/23/25 16:05 MDM - Chest Pain MDM Narrative Medical decision making narrative: The patient EKG showing sinus rhythm with a heart rate of [address] elevation or depression The patient CBC and chemistry showed no acute pathology her presentation is mostly secondary to muscular pain although the patient does have risk factors The patient troponin was repeated Awaiting the results of the chest x-ray the patient care was transferred to Dr. Nowak Lab Data Labs: Lab Results 03/23/25 Range/Units 16:28 WBC 7.5 (4.0-11.0) 10^3/uL RBC 4.63 (4.20-5.40) 10^6/uL Hgb 13.4 (12.0-16.0) g/dL Hct 40.2 (36.0-48.0) % MCV 86.8 (81.0-99.0) fL MCH 28.9 (26.7-34.0) pg MCHC 33.3 (29.9-35.2) g/dL RDW 12.7 (11.0-15.0) % Plt Count 177 (150-450) 10^3/uL MPV 9.5 (9.5-13.5) fL Neut % (Auto) 64.6 (43.0-75.0) % Lymph % (Auto) 25.0 (20.5-60.0) % [place] % (Auto) 7.5 (1.7-12.0) % Eos % (Auto) 2.1 (0.9-7.0) % Baso % (Auto) 0.7 (0.2-2.0) % Neut # (Auto) 4.8 (1.4-6.5) 10^3/uL Lymph # (Auto) 1.9 (1.2-3.8) 10^3/uL [place] # (Auto) 0.6 (0.3-0.8) 10^3/uL Eos # (Auto) 0.2 (0.0-0.7) 10^3/uL Baso # (Auto) 0.1 (0.0-0.1) 10^3/uL Abs Immat Gran (auto) 0.01 (0.00-0.03) 10^3/uL Imm/Tot Granulo (auto) 0.1 (0.0-0.5) % Sodium 138 (136-145) mmol/L Potassium 4.1 (3.5-5.1) mmol/L Chloride 100 (98-107) mmol/L Carbon Dioxide 30.4 (21.0-32.0) mmol/L Anion Gap 11.7 BUN 17.0 (7.0-18.0) mg/dL Creatinine 0.61 (0.55-1.02) mg/dL Est GFR ( Amer) >60 (>=60 mL/min/1.73m^2) Est GFR (Non-Af Amer) >60 (>=60 mL/min/1.73m^2) BUN/Creatinine Ratio 27.9 Glucose 124 H (74-106) mg/dL Calcium 9.6 (8.5-10.1) mg/dL Total Bilirubin 0.4 (0.2-1.0) mg/dL AST 22 (15-37) U/L ALT 25 (14-59) U/L Alkaline Phosphatase 60 (46-116) U/L Troponin I High Sens 5.3 (4.0-51.3) pg/mL Total Protein 7.0 (6.4-8.2) g/dL Albumin 3.8 (3.4-5.0) g/dL Globulin 3.2 g/dL Albumin/Globulin Ratio 1.2 Discharge Plan Discharge Patient Disposition: Still a Patient
[2025-03-23 16:37] LABS: Basophils Absolute Auto 0.1 10^3/uL (0.0-0.1); Basophils Percent Auto 0.7 % (0.2-2.0); Eosinophils Absolute Auto 0.2 10^3/uL (0.0-0.7); Eosinophils Percent Auto 2.1 % (0.9-7.0); Hematocrit 40.2 % (36.0-48.0); Hemoglobin 13.4 g/dL (12.0-16.0); Immature Granulocytes Abs Auto 0.01 10^3/uL (0.00-0.03); Immature Granulocytes Pct Auto 0.1 % (0.0-0.5); Lymphocytes Absolute Auto 1.9 10^3/uL (1.2-3.8); Mean Corpuscular HGB Conc 33.3 g/dL (29.9-35.2); Mean Corpuscular Hemoglobin 28.9 pg (26.7-34.0); Mean Corpuscular Volume 86.8 fL (81.0-99.0); Mean Platelet Volume 9.5 fL (9.5-13.5); Monocytes Absolute Auto 0.6 10^3/uL (0.3-0.8); Monocytes Percent Auto 7.5 % (1.7-12.0); Neutrophils Absolute Auto 4.8 10^3/uL (1.4-6.5); Neutrophils Percent Auto 64.6 % (43.0-75.0); Platelet Count 177 10^3/uL (150-450); Red Blood Count 4.63 10^6/uL (4.20-5.40); Red Cell Distribution Width 12.7 % (11.0-15.0); White Blood Count 7.5 10^3/uL (4.0-11.0)
[2025-03-23] MEDS: KETOROLAC TROMETHAMINE 30 MG/ML VIAL 15 MG IVP (16:54)
[2025-03-23 16:59] LABS: Alanine Aminotransferase 25 U/L (14-59); Albumin Globulin Ratio 1.2; Albumin Level 3.8 g/dL (3.4-5.0); Alkaline Phosphatase 60 U/L (46-116); Anion Gap 11.7; Aspartate Amino Transferase 22 U/L (15-37); BUN Creatinine Ratio 27.9; Bilirubin Total 0.4 mg/dL (0.2-1.0); Calcium 9.6 mg/dL (8.5-10.1); Carbon Dioxide 30.4 mmol/L (21.0-32.0); Chloride 100 mmol/L (98-107); Estimated GFR (African America >60 (>=60 mL/min/1.73m^2); Estimated GFR (Non-African Ame >60 (>=60 mL/min/1.73m^2); Globulin 3.2 g/dL; Glucose 124 mg/dL (74-106); Potassium 4.1 mmol/L (3.5-5.1); Sodium 138 mmol/L (136-145); Troponin I High Sensitivity 5.3 pg/mL (4.0-51.3)
[2025-03-23 18:07] LABS: Troponin I High Sensitivity 7.3 pg/mL (4.0-51.3)
--- NOTE | 2025-03-23 18:21 | PC.NURSE ---
pt came out to nurses station and said pt's sugar was getting low and needed a snack. okay'd by Dr Nowak. peanut butter crackers given with some water
--- NOTE | 2025-03-23 18:59 | ECG_ITS ---
[facility] Test Date: 2025-03-23 Pat Name: MAYRA VICENTE Department: Room: - Gender: Female Rn X Ray: : 1940 Requested By: [id number] Order Number: [id number] Reading MD: LENKA FLETCHER M.D. Measurements Intervals [place] Rate: 58 P: 90 ME: 198 QRS: 70 QRSD: 82 T: 71 QT: 392 QTc: 389 Interpretive Statements 1100 Sinus rhythm 9110 normal ECG Compared to ECG 03/23/2025 16:18:04 No significant changes Electronically Signed On 03-23-2025 21:45:42 EDT by LENKA FLETCHER M.D.
== END 2025-03-23 20:23 | disposition home or self-care (01) ==
PROVIDERS: Emergency Medicine; Emergency Provider Student in an Organized Health Care Education/Training Program; PCP Internal Medicine
DX: R07.89 Other chest pain (principal); H72.91 Unspecified perforation of tympanic membrane, right ear; H92.01 Otalgia, right ear; M54.50 Low back pain, unspecified; R07.81 Pleurodynia; M54.2 Cervicalgia; R51.9 Headache, unspecified
CPT/HCPCS: 36415; 71101; 80053; 84484; 85025; 93005; 96374; 99285; J1885

== ENCOUNTER 2025-04-25 17:12 | Emergency (ER) | payer MEDICARE, SELFPAY ==
[2025-04-25] VITALS (26 sets, daily range): BP systolic 137–154; BP diastolic 52–78; PULSE 50–67; TEMP 36.3–36.8; O2SAT 97–100; BMI 20.5
--- OUTSIDE RECORDS SUMMARY | 2025-04-25 17:24 | XMS_ITS | CCD ---
Author Organization [facility] Care Team Providers Care Junior Assistant Manager Name Role Phone Benny Vick Unavailable Unavailable Unavailable Nitza Cerrato Unavailable Alexia Dejesus Unavailable Unavailable Unavailable Arely Dasilva Unavailable MD Benny Vick Primary Care Provider DO Mario Fontana Emergency Provider ERICA Dasilva Attending Provider DO Haile Bruner Emergency Provider [phone] Ms. Avelino Berry Attending Unavailable Dr. Benny Vick [place] Primary Care MD Benny Grover Primary Care Provider [phone] DO Mario Fontana Emergency Provider NON STAFF Primary Care Provider DO Gregg Kennedy Emergency Provider MD Nj Pantoja Admit Provider MD Nj Castellanos Attending Provider DO Sarah Quevedo Attending Provider MD Jordy Brery Emergency Provider [phone] UNIQUE Dejesus Attending Provider NON STAFF Primary Care Provider DO Gregg Kennedy Emergency Provider MD Nj Pantoja Admit Provider DO Sarah Quevedo Attending Provider MD Jordy Berry Emergency Provider [phone] UNIQUE Dejesus Attending Provider DO Maico Carranza Emergency Provider UNIQUE Dejesus Primary Care Provider NON STAFF Primary Care Provider Unavailabl e UNIQUE Dejesus Attending Provider ERICA Dasilva Attending Provider Janelle Hernandez Unavailable DO Maico Carranza Emergency Provider Unavailab le DO Haile Bruner Emergency Provider MD Jordy Berry Emergency Provider MD Mark Win Attending Provider UNIQUE Dejesus Attending Provider [phone] UNIQUE Dejesus Primary Care Provider ERICA Dasilva Attending Provider [phone] DO Haile Bruner Emergency Provider MD Jordy Berry Emergency Provider MD Mark Win Attending Provider Mark Win Unavailable Guy Hudson Unavailable Alexia Dejesus Unavailable NONE, XXXX Primary Care Physician Unavailab UNIQUE Fox Primary Care Provider MD Rory Rosas Attending Provider Ms. Alexia Dejesus Primary Care Un available Alison JONES, Dr. Rory Be Attending Unavailable Avelino Berry Referring Unavailable Dr. Benny Vick Primary Care Avelino Castrejon Attending Unavailable Avelino Berry Referring Unavailable Nava, Dr. Benny Wilson Primary Care Avelino Castrejon Attending Unavailable Jamal, Avelino Attending Unavailable Jamal, Avelino Referring Unavailable Naderer, Dr. Benny Wilson Primary Care Divine Dejesus, NIKO-C Alexia Primary Care Provider SHAIKH Jennifer GALLARDO Admitting [...] Primary Care Unavailable BONNY JENKINS Consulting Unavailable KLIPPSARAH MOSLEY Consulting Unavailable DIAB ., MAYTE Consulting Unavailable UNLU, FERNANDO Consulting Unavailable JAMAL, DR NISHA Garay Admitting Unavailable JAMAL, DR NISHA Garay Attending Unavailable JAMAL, DR NISHA Garay Consulting Unavailable NAVA, DR BENNY Ivey Primary Care Unavailable ELOISE MORRIS Consulting Unavailable HAY ., DR LANGFORD Admitting Unavailable OLEG, ALEXIA Primary Care Unavailable HAY ., DR LANGFORD Attending Unavailable HAY ., DR LANGFORD Consulting Unavailable AHGENA SMITH Consulting Unavailable SOOSEJAL Consulting Unavailable OLEG, ALEXIA Primary Care Unavailable HAY ., DR LANGFORD Admitting Unavailable HAY ., DR LANGFORD Attending Unavailable HAY ., DR LANGFORD Consulting Unavailable BENYBULMARO Rodriguez Consulting Unavailable ZIEBER, DR CAMRYN Garay Consulting [...] ALEXIA Admitting Unavailable OLEG, ALEXIA Attending Unavailable OLEG, ALEXIA Attending Unavailable OLEG, ALEXIA Consulting Unavailable OLEG, ALEXIA Primary Care Unavailable OLEG, ALEXIA Admitting Unavailable QUIRINO, DR Ghulam aGray Consulting Unavailable OLEG, ALEXIA Primary Care Unavailable MISC, DR SANDOVAL Attending Unavailable MISC, DR SANDOVAL Admitting Unavailable ROBERT Moreno Primary Care Provider DO Ricki Sam Emergency Provider Moreno, II Wilian Referring Provider [phone] Self, Referral Attending Provider Unavailable MD Kieran Christianson Emergency Provider Moreno, II Wilian Primary Care Provider [phone] Moreno, II Wilian Referring Provider Self, Referral Attending Provider Unavailable MD Kieran Christianson Emergency Provider [phone] Moreno, II Wilian Primary Care Provider DO Haile Bruner Emergency Provider MD Kieran Christianson Emergency Provider Haile DAVIS Attending Unavailable RYAN, Haile Garay Attending Unavailable DAVIS, Haile R Admitting Unavailable Haile DAVIS R Attending Unavailable DAVIS, Haile R Attending Unavailable Haile DAVIS R Attending Unavailable Josh II Wilian Primary Care Provider [phone] SIMONE Bo-C Marcia Arreola Attending Provider NOLVIA THORNE Attending Unavailable WILIAN MORENO Primary Care Unavailable NOLVIA THORNE Attending Unavailable NOLVIA THORNE Referring Unavailable WILIAN MORENO Primary Care Unavailable Wilian Moreno MD Primary Care Provider RELL GOODRICH Attending Unavailable ALEXIA DEJESUS NUZHAT Primary Care UnaRELL James Referring Unavailable WILIAN MORENO Primary Care Unavailable Josh IIWilian Primary Care Provider Anupam SUPERVISOR CONTINUOUS WELD PIPE MILL-CMarcia Attending Provider [phone] Guy Hudson APRN Attending Provider Saturday ELECTRO MECHANICAL SOLAR TECHNICIAN, Susan Unavailable Oleg LICENSED LIFE AND HEALTH AGENT-MANAGER TRADING, Alexia Nuzhat Primary Care Provider Guy Hudson Attending Unavailable Wilian Moreno Primary Care Unavailable Guy Hudson Admitting Unavailable Guy Hudson Attending Unavailable Wilian Moreno Primary Care Unavailable Guy Hudson Admitting Unavailable Galea, Marcia Arreola Admitting Unavailable GaleaMarcia Attending Unavailable Wilian Moreno Primary Care Unavailable Moreno, Wilian Primary Care Unavailable TupaHaile Admitting Unavailable TupaHaile Attending Unavailable Kieran Christianson Admitting Unavailable Christianson, Kieran Attending Unavailable Wilian Moreno Primary Care Unavailable RegisterJackie Primary Care Unavailable Jackie Adan Referring Unavailable Self, Referral Admitting Unavailable Self, Referral Attending Unavailable Self, Referral Attending Provider Unavailable Antionette SUPERVISOR CONTINU[employer] P[employer] M[employer]-C, Jackie Rockwell Primary Care Provider Antionette SUPERVISOR CONTINUOUS WELD PIPE MILL-CJackie Referring Provider Zamora ELECTRO MECHANICAL SOLAR TECHNICIAN, Celia Unavailable Unavailable Zamora ELECTRO MECHANICAL SOLAR TECHNICIAN, Celia Unavailable ANTIONETTE, JACKIE M Attending Unavailable ANTIONETTE, JACKIE M Attending Unavailable ANTIONETTE, JACKIE M Attending Unavailable ANTIONETTE, JACKIE M Attending Unavailable ANTIONETTE, JACKIE M Attending Unavailable TIMMIMILLER Wolff Attending Unavailable ANTIONETTE, JACKIE M Attending Unavailable ANTIONETTE, JACKIE M Attending Unavailable SLIME, KIM Attending Unavailable SLIME, KIM Attending Unavailable ANTIONETTE, JACKIE M Attending Unavailable ANTIONETTE, JACKIE M Attending Unavailable Haile DAVIS Attending Unavailable Haile DAVIS Attending Unavailable Allergies Allergy Classification Reported Allergen(s) Allergy Type Date of Onset Reaction(s) Facility (20 sources) Morphine; Translations: [morphine] Drug Allergy 06-11-20 22 Other, Unknown [facility] (20 sources) Mold Extract; Translations: [mold] Drug Allergy 12-31-19 24 Unknown, Unknown Reaction [facility] (20 sources) NITROFURANTOIN, MACROCRYSTALS / Nitrofurantoin, Monohydrate Drug Allergy major stomach issues [email or web address] Other (10 sources) Acetaminophen / HYDROcodone; Translations: [acetaminophen-hy drocodone] Drug Allergy Asthenia (finding) [facility] (11 sources) diazePAM; Translations: [diazepam] Drug Allergy Unknown Reaction [facility] (2 sources) Codeine; Translations: [CODEINE] Drug Allergy 01-09-20 06 [facility] Repository (1 source) diazePAM Drug Allergy [facility] Rep[facility] (2 sources) Doxycycline; Translations: [DOXYCYCLINE] Drug Allergy 07-14-20 18 [facility] Repository (2 sources) Iodine; Translations: [IODINE] Drug Allergy [facility] (1 source) Morphine Drug Allergy [facility] (1 source) Propoxyphene Drug Allergy [facility] (20 sources) Nitrofurantoin; Translations: [nitrofurantoin] Drug Allergy 03-21-20 major stomach issues [facility] (1 source) PROPOXYPHENE N-ACETAMINOPHEN; Translations: [PROPOXYPHENE N-ACETAMINOPHEN] Propensity to adverse reactions to drug (disorder) 01-09-20 06 [facility] Repository (20 sources) Codeine Drug Allergy 01-09-20 06 [facility] (20 sources) Diazepam Propensity to adverse reactions 05-30-20 [facility] (20 sources) Doxycycline Drug Allergy 07-14-20 18 Nausea Only [facility] (20 sources) Iodine Drug Allergy 05-30-20 23 [facility] (20 sources) Mold Extract Drug Allergy 02-28-20 Unknown [facility] (20 sources) Propoxyphene Drug Allergy 01-09-20 06 [facility] (1 source) Morphine Drug Allergy 09-30-20 [facility] Repository Medications Current Medications Medication Drug Class(es) Dates Sig (Normalized) Sig (Original) Ascorbic Acid (20 sources) Vitamin C Vitamin C Not-Ta tracy Vitamin C Active Aspir-81 (20 sources) Aspir-81 Active atorvastatin 10 mg oral tablet (20 sources) HMG-CoA Reductase Inhibitor Start: 09-30-2024 take 1 tablet by mouth once daily atorvastatin (Lipitor) 10 MG tablet Indications: High cholesterol Take 1 tablet (10 mg) by mouth Daily 100 tablet 3 10/20/2024 Active Start: 04-27-2023 End: 12-31-2023 take 1 tablet by mouth once daily Atorvastatin 10 mg tablet Discontinued 10 MG PO Daily November 20, 2023 1:00am December 31, 2023 2:26pm Start: 12-12-2022 End: 02-12-2023 take 4 tablets by mouth once daily Atorvastatin 10 mg tablet Discontinued 40 MG PO Daily December 12, 2022 1:00am February 12, 2023 7:58am Start: 12-12-2022 End: 02-12-2023 take 40 mg by mouth once daily Atorvastatin Discontinu ed 40 MG PO Daily December 12, 2022 1:00am February 12, 2023 7:58am Start: 12-12-2022 take 10 mg by mouth once daily Atorvastatin Active 10 MG PO Daily December 12, 2022 1:00am atropine sulfate 0.025 mg / diphenoxylate hydrochloride 2.5 mg oral tablet (1 source) Anticholinergic, Cholinergic Muscarinic Antagonist, Antidiarrheal Start: 09-30-2024 take 1 tablet by mouth three times daily Diphenoxylate-Atropine (Lomotil) 2.5-0.025 mg tablet Active 1 TAB PO Three times daily September 30, 2024 1:00am bifidobacterium animalis [id number] unt / lactobacillus acidophilus [id number] unt oral capsule (20 sources) Probiotic Produc t (Ztail) capsule Daily Active Probiotic CAPS U SE DIRECTED. Quantity: 0 Refills: 0 Ordered: 21-Jan-2023 DO Active budesonide 3 mg delayed release oral capsule (7 sources) Corticosteroid Start: 02-15-2023 take 3 capsules by mouth every twenty-four hours Budesonide 3 MG 3 capsules Orally Once a day for 30 days February, Active busPIRone hydrochloride 10 mg oral tablet (20 sources) Start: 04-30-2024 End: 09-24-2025 take 1 tablet by mouth in the morning busPIRone (Buspar) 10 MG tablet Indications: Anxiety Take 1 tablet (10 mg) by mouth in the morning and 1 tablet (10 mg) before bedtime. 180 tablet 3 09/24/2024 09/24/2025 Active Start: 07-26-2022 busPIRone Oral , BID, Refills(s) 0 Start Date: 07/26/22 Status: Ordered Repeat number: 1 Start: 07-26-2022 busPIRone Oral , BID, Refills(s) 0 Start Date: 07/26/22 Status: Ordered Start: 07-14-2022 take 2 tablets by mo [facility] three times daily Buspirone 5 mg tablet Active 10 MG PO Three times daily July 14, 2022 12:00am Start: 07-14-2022 take 10 mg by mouth three times daily Buspirone Active 10 MG PO Three times daily July 14, 2022 12:00am Start: 07-14-2022 take 10 mg by mouth once daily Buspirone Active 10 MG PO Daily July 13, 2022 11:00pm Start: 07-09-2022 [facility] busPIRone HCl 5 MG 1 tablet Orally BID w/ Food for 30 day(s) Jun, Active Start: 07-09-2022 take 5 mg by mouth once daily Buspirone Active 5 MG PO Daily July 14, 2022 12:00am End: 10-08-2023 take 1 tablet by mouth in the morning busPIRone (Buspar) 10 MG tablet Take 10 mg by mouth in the morning and 10 mg before bedtime. 10/08/2023 Discontinued (Ineffective) Centrum Silver (20 sources) Start: 07-26-2022 Centrum Silver Oral, Daily, Refill(s) 0 Start Date: 07/26/22 Status: Ordered Repeat number: 1 Start: 07-26-2022 Centrum Silver Oral, Daily, Refill(s) [...] Complete Start: 01-07-2022 take 1 capsule by mo [facility] every eight hours Cephalexin 500 MG 1 capsule Orally three times a day for 7 days Dec, Active cholecalciferol 0.025 mg oral tablet (20 sources) Vitamin D Start: 01-30-2023 take 1 tablet by mouth once daily Cholecalciferol (Vitamin D3) (Vitamin D3) 25 mcg (1,000 unit) Tablet Active 25 MCG PO Daily January 30, 2023 12:00am take 1 capsule by mouth once ly cholecalciferol (Vitamin D-3) 25 MCG (1000 UT) capsule Take 1,000 Units by mouth Daily Active take 1 capsule by mouth in the m orning cholecalciferol (Vitamin D-3) 25 MCG (1000 UT) capsule Take 1,000 Units by mouth in the morning. Active take 1 tablet by mouth once lary y cholecalciferol (Vitamin D3) 5,000 Units tablet Take 1 tablet (5,000 Units) by mouth once daily. Active take 1 tablet by mouth once lary y Vitamin D3 50 MCG (2000 UT) Oral Tablet Take 1 tablet daily Quantity: 0 Refills: 0 Ordered: 19-Jul-2021 DO Active clobetasol propionate 0.5 mg/ml topical cream (20 sources) Corticosteroid Start: 08-26-2024 End: 09-25-2024 clobetasol (Temovate) 0.05 % cream Indications: Dermatitis Apply 1 application topically in the morning and 1 application before bedtime. Apply pea-size amount to affected area.. 30 g 1 08/26/2024 09/25/2024 Active Start: 02-25-2024 clobetasol (Te movate) 0.05 % ointment 02/25/2024 Active Continuous Blood Gluc Sensor (FreeStyle Brett 2 Sensor[place] [facility] [place] Start: 11-21-2023 Continuous Blo od Gluc Sensor (FreeStyle Brett 2 Sensor[place] [facility] [place]ications: Type 2 diabetes mellitus with hypoglycemia without coma, without long-term current use of insulin ([facility]) Use as directed 6 each 3 11/21/2023 Active Continuous Glucose Quiller Hand (FreeStyle Brett 2 Alvin) device (8 sources) Start: 01-05-2025 End: 01-05-2026 Continuous Glucose Quiller Hand (FreeStyle Brett 2 Alvin) device Indications: Type 2 diabetes mellitus with hypoglycemia without coma, without long-term current use of insulin ([facility]) 1 Device 5 (five) times a day 1 each 01/05/2025 01/05/2026 Active Start: 01-05-2025 End: 01-05-2026 Continuous Glucose Quiller Hand (FreeStyle Brett 2 Alvin) device Indications: Type 2 diabetes mellitus with hypoglycemia without coma, without long-term current use of insulin (CMS/HCC) 1 Device 5 (five) times a day 1 each 01/05/2025 01/05/2026 Active Continuous Glucose Sensor (FreeStyle Brett 2 Sensor) [facility] [place] Start: 12-15-2024 Continuous Glu cose Sensor (FreeStyle Brett 2 Sensor) [facility] [place]ications: Type 2 diabetes mellitus with hypoglycemia without coma, without long-term current use of insulin ([facility]) CHANGE EVERY 14 DAYS DIRECTED 6 each 3 12/15/2024 Active Start: 12-15-2024 Continuous Glu cose Sensor (FreeStyle Brett 2 Sensor[place] [facility] [place]ications: Type 2 diabetes mellitus with hypoglycemia without coma, without long-term current use of insulin (CMS/HCC) CHANGE EVERY 14 DAYS DIRECTED 6 each 3 12/15/2024 Active Start: 11-03-2024 Continuous Glu cose Sensor (FreeStyle Brett 2 Sensor) [facility] [place]ications: Type 2 diabetes mellitus with hypoglycemia without coma, without long-term current use of insulin (CMS/HCC) CHANGE EVERY 14 DAYS DIRECTED 6 each 3 11/03/2024 Active Start: 10-06-2024 End: 11-03-2024 Continuous Glucose Sensor (F reeStyle Brett 2 Sensor) mis Indications: Type 2 diabetes mellitus with hypoglycemia without coma, without long-term current use of insulin (CMS/HCC) CHANGE EVERY 14 DAYS DIRECTED 6 each 3 10/06/2024 11/03/2024 Discontinued (Reorder) Start: 10-06-2024 Continuous Glu cose Sensor (FreeStyle Brett 2 Sensor) [facility] [place]ications: Type 2 diabetes mellitus with hypoglycemia without coma, without long-term current use of insulin (CMS/HCC) CHANGE EVERY 14 DAYS DIRECTED 6 each 3 10/06/2024 Active doxepin hydrochloride 10 mg/ml oral solution (1 [...] MonWedFri, # 42.5 gram, Refills(s) 3, Pharmacy: [facility] Start Date: 02/01/20 Status: Ordered Estradiol Active estrogens, conjugated (mcfp) 0.625 mg/ml vaginal cream (20 sources) Estrogen Start: 04-14-2025 Premarin Vagin al 0.625 mg/g cream with applicator 0.5 gm, Vaginal, MonWedFri, 30 gm, Refill(s) 5, [employer] 157, cm, 04/14/25 14:35:00 EDT, Height/Length Dosing, 51.8, kg, 04/14/25 14:35:00 EDT, Weight Dosing Start Date: 04/14/25 Status: Ordered Quantity: 30.0 Unit: g Repeat number: 6 Indications: Personal history of urinary (tract) infections; Start: 01-06-2024 Premarin Vagin al 0.625 mg/g cream with applicator 1 gm, Vaginal, MonWedFri, 42.5 gm, Refill(s) 11, [employer] 160, cm, 10/30/22 15:41:00 EST, Height/Length Dosing, 56, kg, 10/30/22 15:41:00 EST, Weight Dosing Start Date: 01/06/24 Status: Ordered Start: 01-30-2023 Conjugated Est rogens (Premarin) 0.625 mg/gram cream Active 1 APPLIC VAGINAL 3 Times a week January 30, 2023 12:00am m,w,f Start: 10-30-2022 Premarin Vagin al 0.625 mg/g cream with applicator 1 gm, Vaginal, MonWedFri, 42.5 gm, Refill(s) 11, [facility], 160, cm, 10/30/22 15:41:00 EST, Height/Length Dosing, 56, kg, 10/30/22 15:41:00 EST, Weight Dosing Start Date: 10/30/22 Status: Ordered Premarin 0.625 M G/GM cream Active famotidine 40 mg oral tablet (20 sources) Histamine-2 Receptor Antagonist Start: 02-25-2025 End: 02-25-2026 take 1 tablet by mouth in the morning famotidine (Pepcid) 40 MG tablet Indications: Acute gastritis with hemorrhage, unspecified gastritis type Take 1 tablet (40 mg) by mouth in the morning and 1 tablet (40 mg) before bedtime. 180 tablet 3 02/25/2025 02/25/2026 Active Start: 10-26-2024 End: 02-25-2025 take 1 tablet by mouth once daily famotidine (Pepcid) 20 MG tablet Indications: Gastroesophageal reflux disease, unspecified whether esophagitis present TAKE ONE TABLET BY MOUTH EVERY DAY 100 tablet 2 10/26/2024 02/25/2025 Discontinued Start: 09-30-2024 take 1 tablet by gucci th twice daily Famotidine 40 mg tablet Active 40 MG PO Twice daily September 30, 2024 1:00am Start: 12-12-2022 take 0.5 tablet by m out once daily famotidine (Pepcid) 20 mg tablet Take 0.5 tablets (10 mg) by mouth once daily. 12/12/2022 Active Start: 07-26-2022 famotidine Ref ills(s) 0 Start Date: 07/26/22 Status: Ordered Repeat number: 1 Start: 07-26-2022 famotidine Ref ills(s) 0 Start Date: 07/26/22 Status: Ordered Start: 07-19-2022 End: 09-30-2024 take 1 tablet by mouth once daily famotidine (Pepcid) 20 MG tablet Indications: Gastroesophageal reflux disease, unspecified whether esophagitis present Take 1 tablet (20 mg) by mouth Daily 100 tablet 2 03/12/2024 Active ferrous sulfate 325 mg oral tablet (20 sources) Start: 12-12-2022 take 1 tablet by mouth twice daily Ferrous Sulfate 325 mg (65 mg iron) Tablet Active 325 MG PO Twice daily December 12, 2022 1:00am Start: 07-26-2022 ferrous sulfat e Oral, Refills(s) 0 Start Date: 07/26/22 Status: Ordered Repeat number: 1 Start: 07-26-2022 ferrous sulfat e Oral, Refills(s) 0 Start Date: 07/26/22 Status: Ordered Start: 07-16-2022 take 1 tablet by gucci th every twelve hours take 1 tablet by gucci th twice daily Ferrous Sulfate 325 (65 Fe) MG 1 tablet Orally bid for 30 day(s) Active FreeStyle Brett 2 Alvin - (20 sources) Start: 11-29-2022 FreeStyle Libr e 2 Alvin - as directed SQ as directed for 30 day(s) Nov, Active FreeStyle Brett 2 Sensor - (20 sources) Start: 11-29-2022 FreeStyle Libr e 2 Sensor - as directed SQ as directed for 28 days Nov, Active gabapentin 300 mg oral capsule (20 sources) Anti-epilepti c Agent Start: 02-09-2025 take 1 capsule by mouth at bedtime gabapentin (Neurontin) 300 MG capsule Indications: Diabetic mononeuropathy associated with type 2 diabetes mellitus (HCC) Take 1 capsule (300 mg) by mouth at bedtime 30 capsule 3 02/09/2025 Active Start: 10-15-2024 End: 11-14-2024 take 1 capsule by mouth at bedtime gabapentin (Neurontin) 300 MG capsule Indications: Diabetic mononeuropathy associated with type 2 diabetes mellitus (HCC) (CMS/HCC) Take 1 capsule (300 mg) by mouth at bedtime 30 capsule 10/15/2024 11/14/2024 Active End: 08-20-2023 take 1 capsule by mouth every twenty-four hours as needed gabapentin (Neurontin) 300 MG capsule Take 300 mg by mouth Daily as needed. 08/20/2023 Discontinued Gabapentin Activ e L.Rhamnosus-B.Animalis ([employer]) 3 billion cell capsule (1 source) Start: 09-30-2024 L.Rhamnosus-B.Animalis ([employer]) 3 billion cell capsule Active CAP PO September 30, 2024 1:00am lactulose 667 mg/ml oral solution (1 source) Osmotic Laxative Start: 04-04-2023 take 15 mL by mouth once daily as needed Lactulose 20 GM/30ML 15 mL as needed Orally Once a day for 30 days Mar, Active lisinopril 10 mg oral tablet (20 sources) Angiotensin Converting Enzyme Inhibitor Start: 06-25-2024 End: 06-25-2025 take 0.5 tablet by mouth once daily lisinopril 20 MG tablet Indications: Primary hypertension (CMS/HCC) Take 0.5 tablets (10 mg) by mouth Daily 06/25/2024 09/16/2024 Discontinued (Other) Start: 06-17-2024 End: 09-17-2025 take 1 tablet by mouth once daily lisinopril 10 MG tablet Indications: Primary hypertension Take 1 tablet (10 mg) by mouth Daily 100 tablet 3 08/13/2024 09/17/2025 Active Start: 05-11-2024 End: 05-11-2025 take 1 tablet by mouth once daily lisinopril 20 MG tablet Indications: Primary hypertension (CMS/HCC) Take 1 tablet (20 mg) by mouth Daily 100 tablet 3 05/11/2024 06/25/2024 Discontinued Start: 06-26-2023 End: 07-17-2023 take 1 tablet by mouth in the morning lisinopril 30 MG tablet Indications: Hyperlipidemia, unspecified hyperlipidemia type (CMS/HCC) Take 1 tablet (30 mg) by mouth in the morning. 30 tablet 11 06/26/2023 07/17/2023 Discontinued (Reorder) Start: 01-30-2023 take 3 tablets by mo [facility] once daily Lisinopril 10 mg tablet Active 30 MG PO Daily January 30, 2023 9:31am Start: 01-30-2023 take 30 mg by mouth once daily Lisinopril Active 30 MG PO Daily January 30, 2023 9:31am Start: 07-26-2022 lisinopril Ora l, Daily, Refills(s) 0 Start Date: 07/26/22 Status: Ordered Repeat number: 1 Start: 07-26-2022 lisinopril Ora l, Daily, Refills(s) 0 Start Date: 07/26/22 Status: Ordered Start: 07-14-2022 End: 01-30-2023 take 1 tablet by mouth once daily Lisinopril 10 mg Tablet Discontinued 10 MG PO Daily July 14, 2022 12:00am January 30, 2023 9:31am Start: 05-08-2019 End: 07-14-2022 take 1 tablet by mouth once daily Lisinopril 2.5 mg tablet Discontinued 2.5 MG PO Daily May 08, 2019 12:00am July 14, 2022 1:00am take 1 tablet by gucci at bedtime Lisinopril 30 MG Oral Tablet TAKE 1 TABLET Bedtime Quantity: 0 Refills: 0 Ordered: 21-Jan-2023 DO Active take 1 tablet by gucci th once daily Lisinopril 5 MG Oral Tablet TAKE 1 TABLET DAILY. Quantity: 0 Refills: 0 Ordered: 19-Jul-2021 DO Active Magnesium (17 sources) Start: 12-12-2022 magnesium 200 mg tablet 1 tablet (200 mg) once daily. 12/12/2022 Active Start: 12-12-2022 Magnesium 200 mg Tablet Active 250 MG PO Daily December 12, 2022 1:00am Start: 12-12-2022 Magnesium 200 mg Tablet Active 250 MG PO Daily December 12, 2022 12:00am Start: 12-12-2022 take 250 mg by mouth once lary y Magnesium Active 250 MG PO Daily December 12, 2022 1:00am Start: 12-12-2022 take 250 mg by mouth once lary y Magnesium Active 250 MG PO Daily December 12, 2022 12:00am Start: 12-12-2022 take 200 mg by mouth [...] 21-Jan-2023 DO Active magnesium amino acid chelate (8 sources) Start: 07-26-2022 magnesium gorman o acids chelate Oral, Refills(s) 0 Start Date: 07/26/22 Status: Ordered Repeat number: 1 Start: 07-26-2022 magnesium gorman o acids chelate Oral, Refills(s) 0 Start Date: 07/26/22 Status: Ordered magnesium glycinate 100 mg oral tablet (20 sources) Start: 07-16-2022 take 1 capsule by mouth once daily magnesium oxide 400 mg oral tablet (20 sources) magnesium oxide (Mag-Ox) 400 mg tablet Take 300 mg by mouth Daily Active metFORMIN hydrochloride 500 mg oral tablet (20 sources) Biguanide Start: 05-08-2019 End: 11-20-2023 take 1 mg by mouth once daily metformin 500 mg ER Tab mg tab(s), Oral, Daily, Refills(s) 0 Start Date: 07/26/22 Status: Ordered Repeat number: 1 Start: 05-08-2019 take 1000 mg by mouth once ly Metformin Active 1000 MG PO Daily May 08, 2019 12:00am metFORMIN HCl Ac tive metFORMIN HCl No t-Taking Multiple Vitamins-Minerals (MULTIVITAMIN ADULTS 50+ PO) (20 sources) take 1 tablet by mouth in the morning Multiple Vitamins-Minerals (MULTIVITAMIN ADULTS 50+ PO) Take 1 tablet by mouth in the morning. Active multivitamin with minerals tablet (1 source) take 1 tablet by mouth once daily multivitamin with minerals tablet Take 1 tablet by mouth once daily. Active Iwyxmguhqaup-Zqzxfuci-Vrkuba (8 sources) Start: 01-30-2023 take 1 tablet by mouth once daily Mguxvaexjerv-Muwnotph-Nodgk n Active 1 TAB PO Daily January 29, 2023 11:00pm Start: 01-30-2023 take 1 tablet by gucci th once daily Uohdtkvbcdbi-Kkkpldtk-Yxrvbk Active 1 TA B PO Daily January 30, 2023 12:00am Sdryjswbyhdw-Ropgcnyn-Hpuvas (Centrum Silver) Tablet (1 source) Start: 01-30-2023 take 1 tablet by mouth once daily Rcjqhceendex-Rydnwvbn-Eykqtd (Centrum Silver) Tablet Active 1 TAB PO Daily January 30, 2023 12:00am Vnarkqnwonzf-Uvvkvfyo-Cyzyha Tablet (2 sources) Start: 01-30-2023 take 1 tablet by mouth once daily Dtshkhemhakv-Tffobclv-Hgnxuv Tablet Active 1 TAB PO Daily January 30, 2023 12:00am Start: 01-30-2023 take 1 tablet by gucci th once daily Urfzdzrvpfzc-Hgxpbtuk-Bjwcja Tablet Acti ve 1 TAB PO Daily January 29, 2023 11:00pm nitrofurantoin, macrocrystals 25 mg / nitrofurantoin, monohydrate 75 mg oral capsule (20 sources) Nitrofuran Antibacterial Start: 10-28-2022 take 1 capsule by mouth every twelve hours omeprazole 40 mg delayed release oral capsule (20 sources) Proton Pump Inhibitor Start: 11-20-2023 End: 09-16-2025 take 1 capsule by mouth before mealtime omeprazole (PriLOSEC) [address] capsule Indications: Gastroesophageal reflux disease, unspecified whether esophagitis present Take 1 capsule (40 mg) by mouth in the morning. Take before meals. Do not crush or chew.. 30 capsule 11 09/16/2024 09/16/2025 Active [facility] (14 sources) [facility] Active Simvastatin (20 sources) HMG-CoA Reductase Inhibitor Start: 07-26-2022 simvastatin Oral, Refills(s) 0 Start Date: 07/26/22 Status: Ordered Repeat number: 1 Start: 07-26-2022 simvastatin Or al, Refills(s) 0 Start Date: 07/26/22 Status: Ordered Start: 05-08-2019 End: 11-20-2023 take 1 tablet by mouth once daily at bedtime Simvastatin 40 mg Tablet Discontinued 40 MG PO Daily at bedtime February 12, 2023 12:00am November 21, 2023 12:51am Start: 05-08-2019 End: 12-12-2022 Simvastatin 40 mg Tablet Discontinued 20 MG PO Daily at bedtime May 08, 2019 12:00am December 12, 2022 4:21pm Start: 05-08-2019 End: 12-12-2022 take 20 mg by mouth once daily at bedtime Simvastatin Discontinued 20 MG PO Daily at bedtime May 08, 2019 12:00am December 12, 2022 4:21pm Simvastatin Acti ve SITagliptin 50 mg oral tablet (20 sources) Dipeptidyl Peptidase 4 Inhibitor Start: 06-26-2023 End: 12-08-2025 take 1 tablet by mouth in the morning SITagliptin (Januvia) 50 MG tablet Indications: Type 2 diabetes mellitus with hypoglycemia without coma, without long-term current use of insulin (HCC) Take 1 tablet (50 mg) by mouth in the morning. 100 tablet 3 11/03/2024 12/08/2025 Active take 1 tablet by gucci th every twenty-four hours Januvia 100 MG 1 tablet Orally Once a day Active tretinoin 0.25 mg/ml topical cream (20 sources) Retinoid Start: 03-24-2024 End: 09-16-2024 tretinoin (Retin-A) 0.025 % cream Indications: Milia Apply to face every evening as tolerated/30 day supply 20 g 11 03/24/2024 Active Vitamin D3 (20 sources) Start: 07-26-2022 Vitamin D3 Ref ills(s) 0 Start Date: 07/26/22 Status: Ordered Repeat number: 1 Start: 07-26-2022 Vitamin D3 Ref ills(s) 0 Start Date: 07/26/22 Status: Ordered Vitamin D3 Activ e zinc oxide 0.4 mg/mg topical ointment (5 sources) Start: 09-09-2024 End: 10-09-2024 liver oil-zinc oxide (Desiti n) 40 % ointment Indications: Vaginal burning Apply topically if needed for irritation Apply to outer labial folds prior to clobetasole 56 g 2 09/09/2024 10/09/2024 Active Completed/Discontinued Medications Medication Drug Class(es) Dates Sig (Normalized) Sig (Original) acetaminophen 325 mg / HYDROcodone bitartrate 5 mg oral tablet (18 sources) Opioid Agonist Start: 09-21-2022 End: 12-12-2022 take 1 tablet by mouth three times daily as needed for pain Hydrocodone-Aceta minophen 5-325 mg tablet Discontinued 1 TAB PO Three times daily as needed for pain 7 September 21, 2022 December 12, 2022 4:21pm Alendronate (2 sources) Bisphosphonate Alendronate Sodium Not-Taking amLODIPine 2.5 mg oral tablet (20 sources) Dihydropyridine Calcium Channel Areli Start: 07-14-2022 End: 12-12-2022 take 1 tablet by mouth once daily Amlodipine 2.5 mg tablet Discontinued 2.5 MG PO Daily July 14, 2022 12:00am December 12, 2022 4:21pm Start: 05-16-2022 take 1 tablet by gucci once daily amLODIPine Besylate 2.5 MG Oral Tablet TAKE 1 TABLET DAILY. Quantity: 90 Refills: 3 Ordered: 16-May-2022 Avelino Resendiz Start : 16-May-2022 Active New start take 0.5 tablet by m out once daily amoxicillin 875 mg / clavulanate 125 mg oral tablet (18 sources) Penicillin-class Antibacterial Start: 09-21-2022 End: 12-12-2022 take 1 tablet by mouth twice daily Amoxicillin-Pot Clavulanate 875-125 mg tablet Discontinued 1 TAB PO Twice daily 02 08September 21, 2022 1:00am December 12, 2022 4:21pm aspirin 81 mg delayed release oral tablet (20 sources) Platelet Aggregation Inhibitor, Nonsteroidal Anti-inflammatory Drug Start: 05-08-2019 End: 12-31-2023 take 1 tablet by mouth once daily Aspirin 81 mg Tablet,Delayed Release (Dr/Ec) Discontinued 81 MG PO Daily May 08, 2019 12:00am December 31, 2023 2:26pm ciprofloxacin 500 mg oral tablet (20 sources) Quinolone Antimicrobial Start: 05-08-2019 End: 04-14-2022 take 1 tablet by mouth twice daily Ciprofloxacin Hcl 500 mg tablet Discontinued 500 MG PO Twice daily May 08, 2019 12:00am April 14, 2022 5:22pm cloNIDine hydrochloride 0.1 mg oral tablet (2 sources) Central alpha-2 Adrenergic Agonist Start: 06-26-2023 End: 08-20-2023 take 1 tablet by mouth every six hours as needed for hypertension and hypertension and hypertension cloNIDine (Catapres) 0.1 MG tablet Indications: Hypertension, unspecified type (CMS/HCC) Take 1 tablet (0.1 mg) by mouth every 6 (six) hours if needed for high blood pressure (For SBP > 170 only). 30 tablet 11 06/26/2023 08/20/2023 Discontinued clotrimazole 10 mg/ml topical cream (20 sources) Azole Antifungal Start: 06-18-2023 End: 07-16-2023 clotrimazole (Lotrimin) 1 % cream Indications: Vaginal infection Apply topically 2 (two) times a day for 28 days. 30 g 2 06/18/2023 07/16/2023 Start: 10-08-2022 Start: 10-08-2022 dicyclomine hydrochloride 10 mg oral capsule (4 sources) Anticholinergic Start: 01-22-2023 End: 08-20-2023 dicyclomine (Bentyl) 10 MG capsule 01/22/2023 08/20/2023 Discontinued Start: 03-28-2021 take 1 capsule by [facility] every twelve hours Dicyclomine HCl 10 MG 1 capsules Orally bid for 30 day(s) Mar, Not-Taking docusate sodium 100 mg oral capsule (18 sources) Start: 09-21-2022 End: 12-12-2022 take 1 capsule by mouth once daily Docusate Sodium (Colace) 100 mg capsule Discontinued 100 MG PO Daily September 21, 2022 1:00am December 12, 2022 4:21pm doxycycline hyclate 100 mg oral capsule (15 sources) Tetracycline -class Drug Start: 10-26-2022 take 1 capsule by mouth once daily doxycycline hyclate 100 mg Cap 100 mg = 1 cap(s), Oral, Daily, Take 1 pill the day before the procedure and 1 pill after the procedure, # 2 cap(s), Refills(s) 0, Pharmacy: [id number], 160, cm, 07/26/22 13:31:00 EDT, Height/Length Dosing, 56, kg, 07/26/22 13:31:00 EDT, Weight Dosing Start Date: 10/26/22 Status: Ordered Start: 07-16-2022 take 1 capsule by [facility] every twelve hours Doxycycline Monohydrate 100 MG [...] Ordered: 18-Oct-2021 DO Start : 18-Oct-2021 Complete hydroCHLOROthiazide 25 mg oral tablet (20 sources) Thiazide Diuretic Start: 06-22-2022 End: 07-14-2022 take 1 tablet by mouth once daily Hydrochlorothiazide 25 mg tablet Discontinued 25 MG PO Daily July 14, 2022 12:00am July 14, 2022 12:59pm lactobacillus acidophilus [id number] unt oral capsule (11 sources) Start: 01-30-2023 End: 11-20-2023 take 10 capsules by mouth once daily Lactobacillus Acidophilus (Probiotic) 10 billion cell Capsule Discontinued 1 CELL PO Daily January 30, 2023 12:00am November 21, 2023 12:51am meclizine hydrochloride 25 mg oral tablet (2 sources) Antiemetic take 1 tablet by mouth four times daily as needed for dizziness Meclizine HCl - 25 MG Oral Tablet TAKE 1 TABLET 4 TIMES DAILY NEEDED FOR DIZZINESS. Quantity: 0 Refills: 0 Ordered: 19-Jul-2021 DO Active mesalamine 1200 mg delayed release oral tablet (9 sources) Aminosalicylate Start: 02-12-2023 End: 11-20-2023 take 4 tablets by mouth once daily Mesalamine (Lialda) 1.2 gram tablet,delayed release (DR/EC) Discontinued 4.8 GM PO Daily 120 56 February 12, 2023 12:00am November 21, 2023 12:51am metroNIDAZOLE 500 mg oral tablet (20 sources) Nitroimidazole Antimicrobial Start: 05-08-2019 End: 04-14-2022 take 1 tablet by mouth four times daily Metronidazole 500 mg tablet Discontinued 500 MG PO Four times daily May 08, 2019 12:00am April 14, 2022 5:22pm mirtazapine 15 mg oral tablet (5 sources) Start: 03-12-2023 End: 11-11-2023 mirtazapine (Remeron) 15 MG tablet 03/12/2023 11/11/2023 Discontinued (Other) Multi Vitamin TABS (6 sources) Multi Vitamin TA BS TAKE 1 TABLET DAILY. Quantity: 0 Refills: 0 Ordered: 18-Apr-2022 DO Active Dohvssnn-Fft-Rloe-Fa-L utein (Centrum Silver Women) 8 mg iron-400 mcg-300 mcg Tablet (6 sources) Start: 12-12-2022 End: 01-30-2023 take 1 tablet by mouth once daily Rvcmujgk-Fhc-Sjpz-Fa- Lutein (Centrum Silver Women) 8 mg iron-400 mcg-300 mcg Tablet Discontinued 1 TAB PO Daily December 12, 2022 1:00am January 30, 2023 9:26am Start: 12-12-2022 take 1 tablet by gucci th once daily Ygddstot-Joj-Eoek-Fa-Lutein (Centrum Lilia ester Women) 8 mg iron-400 mcg-300 mcg Tablet Active 1 TAB PO Daily December 12, 2022 1:00am Start: 12-12-2022 take 1 tablet by gucci th once daily Oucwpbjc-Zpj-Xpsi-Fa-Lutein (Centrum Lilia ester Women) 8 mg iron-400 mcg-300 mcg Tablet Active 1 TAB PO Daily December 12, 2022 12:00am Dihkddbt-Mws-Vzdv-Fa-Vit K-Lut (Centrum Silver Women) 8 mg iron-400 mcg-300 mcg Tablet (8 sources) Start: 12-12-2022 End: 01-30-2023 take 1 tablet by mouth once daily Qsqngbzk-Txy-Ewmo-Fa-Vit K-Lut (Centrum Silver Women) 8 mg iron-400 mcg-300 mcg Tablet Discontinued 1 TAB PO Daily December 12, 2022 1:00am January 30, 2023 9:26am Start: 12-12-2022 End: 01-30-2023 take 1 tablet by mouth once daily Adbmgnxs-Ohh-Bsnw-Fa-Vit K-Lut (Centrum Silver Women) 8 mg iron-400 [...] tablet (20 sources) Serotonin-3 Receptor Antagonist Start: 07-24-2022 take 1 tablet by mouth every eight hours as needed Start: 07-19-2022 take 1 tablet by gucci th once daily as needed Start: 07-19-2022 End: 08-20-2023 take 1 tablet by mouth every eight hours as needed for nausea and vomiting Ondansetron 4 mg tablet,disintegrating Discontinued 4 MG PO Q8H as needed for nausea and vomiting 6 2 September 21, 2022 1:00am December 12, 2022 4:21pm pantoprazole 40 mg delayed release oral tablet (20 sources) Proton Pump Inhibitor Start: 05-08-2019 End: 04-14-2022 take 1 tablet by mouth twice daily Pantoprazole 40 mg Tablet,Delayed Release (Dr/Ec) Discontinued 40 MG PO Twice daily May 08, 2019 12:00am April 14, 2022 5:22pm phenazopyridine hydrochloride 100 mg oral tablet (3 sources) Start: 08-26-2024 End: 08-29-2024 take 1 tablet by mouth three times daily as needed for muscle spasms phenazopyridine (Pyridium) 100 MG tablet Indications: Vaginal burning , Vaginal pain Take 1 tablet (100 mg) by mouth 3 (three) times a day as needed for bladder spasms for up to 3 days 10 tablet 08/26/2024 08/29/2024 polyethylene glycol 3350 22080 mg powder for oral solution (18 sources) Osmotic Laxative Start: 09-21-2022 End: 12-12-2022 Polyethylene Glycol 3350 (Miralax) 17 gram powder in packet Discontinued 17 GM PO Daily 14 4 September 21, 2022 1:00am December 12, 2022 4:21pm sertraline 25 mg oral tablet (20 sources) Serotonin Reuptake Inhibitor Start: 12-12-2022 End: 11-20-2023 take 3 tablets by mouth once daily Sertraline 25 mg tablet Discontinued 75 MG PO Daily December 12, 2022 1:00am November 21, 2023 12:51am Start: 12-12-2022 End: 11-20-2023 take 75 mg by mouth once daily Sertraline Discontinued 75 MG PO Daily December 12, 2022 1:00am November 21, 2023 12:51am Start: 07-16-2022 End: 08-20-2023 take 1 mg by mouth once daily sertraline 25 mg Tab mg tab(s), Oral, Daily, Refills(s) 0 Start Date: 07/26/22 Status: Ordered Repeat number: 1 take 1 tablet by gucci th at bedtime Sertraline HCl - 50 MG Oral Tablet TAKE 1 TABLET Bedtime Quantity: 0 Refills: 0 Ordered: 21-Jan-2023 DO Active sucralfate 1000 mg oral tablet (15 sources) Aluminum Complex Start: 09-30-2024 End: 09-30-2024 Sucralfate 1 gram tablet Discontinued PO September 30, 2024 1:00am September 30, 2024 10:07am Start: 09-16-2024 End: 09-16-2025 sucralfate (Carafate) 1 g ta blet Indications: Acute gastric ulcer, unspecified whether gastric ulcer hemorrhage or perforation present Take 1 tablet (1 g) by mouth in the morning and 1 tablet (1 g) at noon and 1 tablet (1 g) in the evening. Take with meals. 90 tablet 11 09/16/2024 09/16/2025 Active Tylenol Extra Strength TABS (6 sources) Tylenol Extra St rength TABS TAKE 1 TABLET EVERY 4 TO 6 HOURS NEEDED. Quantity: 0 Refills: 0 Ordered: 18-Apr-2022 DO Active Problems Active Problems Problem Classification Problem Date Documented Da te Episodic/Chronic Anal and rectal conditions (20 sources) Anal fissure; Translations: [Anal fissure, unspecified] Episodic Anxiety disorders (20 sources) Generalized anxiety disorder; Translations: [Generalized anxiety disorder] Onset: 9 Resolved: 3 Chronic Cataract (20 sources) Bilateral cataracts; Translations: [Unspecified cataract] Onset: 9 05-30-2023 Chronic Coronary atherosclerosis and other heart disease (1 source) Atherosclerotic heart disease of [place] coronary artery without angina pectoris; Translations: [ASHD RESIGHINI CA W/O ANGINA PECTORIS] Onset: 2 Chronic [...] not stated as uncontrolled] Onset: 3 Chronic Disorders of lipid metabolism (20 sources) Hyperlipidemia; Translations: [Other and unspecified hyperlipidemia] Onset: 9 04-11-2023 Chronic Diverticulosis and diverticulitis (20 sources) Diverticular disease of colon; Translations: [Diverticulosis of intestine, part unspecified, without perforation or abscess without bleeding] Onset: 9 Resolved: 3 09-21-2022 Chronic Esophageal disorders (20 sources) Gastroesophageal reflux disease; Translations: [Esophageal reflux] Onset: 9 04-11-2023 Chronic Essential hypertension (20 sources) Benign essential hypertension; Translations: [Benign essential hypertension] Onset: 3 Chronic Gastritis and duodenitis (3 sources) Gastritis; Translations: [Gastritis, unspecified, without bleeding] 09-30-2024 Episodic Gastroduodenal ulcer (except hemorrhage) (2 sources) Acute gastric ulcer; Translations: [Acute gastric ulcer without hemorrhage or perforation] 09-16-2024 Episodic Genitourinary symptoms and ill-defined conditions (20 sources) Dysuria; Translations: [Dysuria] Onset: 2 Resolved: 2 Episodic Menopausal disorders (20 sources) Atrophic vaginitis; Translations: [Postmenopausal atrophic vaginitis] Onset: 9 05-30-2023 Chronic Miscellaneous mental health disorders (2 sources) Primary insomnia; Translations: [Primary insomnia] 03-18-2025 Chronic Noninfectious gastroenteritis (4 sources) Lymphocytic colitis; Translations: [LYMPHOCYTIC COLITIS] Onset: 3 Chronic Nutritional deficiencies (20 sources) Vitamin D deficiency; Translations: [Vitamin D deficiency, unspecified] Onset: 6 04-11-2023 Chronic Other aftercare (1 source) watermaster (current) use of aspirin; Translations: [SEALER SANDER CURRENT USE OF ASPIRIN] Onset: 3 Episodic Other aftercare (1 source) Other alf (current) drug therapy; Translations: [OTH SEALER SANDER CURRENT DRUG THERAPY] Onset: 3 Episodic Other aftercare (1 source) watermaster (current) use of oral hypoglycemic drugs; Translations: [SEALER SANDER USE ORAL HYPOGLYCEMIC DX] Onset: 3 Episodic Other aftercare (2 sources) Patient encounter status; Translations: [Encounter for follow-up examination after completed treatment for conditions other than malignant neoplasm] 09-09-2024 Episodic Other circulatory disease (4 sources) Orthostatic hypotension; Translations: [Orthostatic hypotension] Onset: 4 Episodic Other connective tissue disease (2 sources) Muscle spasm of cervical muscle of neck; Translations: [Other muscle spasm] 11-21-2023 Episodic Other diseases of bladder and urethra (20 sources) Urethral stricture; Translations: [Other urethral stricture, female] Onset: 2 Episodic Other diseases of kidney and ureters (3 sources) Acquired renal cyst without neoplastic change; Translations: [Cyst of kidney, acquired] Onset: 3 Episodic Other diseases of kidney and ureters (7 sources) Cyst of kidney 10-30-2022 Episodic Other ear and sense organ disorders (2 sources) Pain of ear structure; Translations: [Otalgia, right ear] 04-07-2025 Episodic Other female genital disorders (20 sources) Swelling of labia; Translations: [Other specified conditions associated with female genital organs and menstrual cycle] Episodic Other female genital disorders (1 source) Other specified conditions associated with female genital organs and menstrual cycle Episodic Other female genital disorders (4 sources) Burning sensation of vagina; Translations: [Other specified conditions associated with female genital organs and menstrual cycle] 08-26-2024 Episodic Other gastrointestinal disorders (14 sources) Irritable bowel syndrome; Translations: [Irritable bowel syndrome without diarrhea] Chronic Other gastrointestinal disorders (3 sources) Irritable bowel syndrome without diarrhea; Translations: [IRRITABLE BOWEL SYND W/O DIARRHEA] Onset: 3 Chronic Other gastrointestinal disorders (1 source) Celiac disease; Translations: [CELIAC DISEASE] Onset: 3 Chronic Other gastrointestinal disorders (20 sources) Irritable bowel syndrome with diarrhea; Translations: [Irritable bowel syndrome with diarrhea] Onset: 3 12-31-2023 Chronic Other gastrointestinal disorders (4 sources) Irritable bowel syndrome with diarrhea; Translations: [Irritable bowel syndrome] Onset: 4 Chronic Other gastrointestinal disorders (20 sources) Diarrhea; Translations: [Diarrhea, unspecified] 08-31-2024 Episodic Other gastrointestinal disorders (20 sources) Dysphagia; Translations: [Dysphagia, unspecified] Episodic Other gastrointestinal disorders (6 sources) Constipation, unspecified; Translations: [Constipation, unspecified] 07-14-2022 Episodic Other gastrointestinal disorders (20 sources) Altered bowel function; Translations: [Change in bowel habit] Episodic Other gastrointestinal disorders (1 source) Change in bowel habit Episodic Other liver diseases (1 source) Other specified diseases of liver; Translations: [OTHER SPECIFIED DISEASES OF LIVER] Onset: 2 Chronic Other liver diseases (20 sources) Lesion of liver; Translations: [Liver disease, unspecified] Onset: 9 05-30-2023 Chronic Other nervous system disorders (20 sources) Cerebral cysts; Translations: [Arachnoid cyst] Chronic Other nervous system disorders (20 sources) Cerebral arachnoid cyst; Translations: [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 Other nervous system disorders (20 sources) Neuropathy; Translations: [Polyneuropathy, unspecified] Onset: 9 05-30-2023 Chronic Other nervous system disorders (8 sources) H/O: migraine 05-20-2019 Episodic Other nutritional; endocrine; and metabolic disorders (20 sources) Unintentional weight loss; Translations: [Abnormal weight loss] Episodic Other nutritional; endocrine; and metabolic disorders (20 sources) Loss of appetite; Translations: [Anorexia] Episodic Other nutritional; endocrine; and metabolic disorders (7 sources) Abnormal weight loss; Translations: [Loss of weight] Onset: 2 Episodic Other nutritional; endocrine; and metabolic disorders (3 sources) Anorexia; Translations: [ANOREXIA] Onset: 3 Episodic Other nutritional; endocrine; and metabolic disorders (3 sources) Body mass index (BMI) 19.9 or less, adult; Translations: [BODY MASS INDEX 19.9 OR LESS ADULT] Onset: 2 Episodic Other screening for suspected conditions (not mental disorders or infectious disease) (6 sources) Abnormal level of blood mineral; Translations: [Encounter for screening mammogram for malignant neoplasm of breast] Onset: 5 Episodic Otitis media and related conditions (2 sources) Multiple perforations of right tympanic membrane; Translations: [Multiple perforations of tympanic membrane, right ear] 04-07-2025 Episodic Residual codes; unclassified (8 sources) Body mass index 20-24 - normal; Translations: [Body Mass Index between 19-24, adult] Episodic Residual codes; unclassified (6 sources) Altered mental status, unspecified; Translations: [Altered mental status] 07-14-2022 Episodic Residual codes; unclassified (1 source) Acquired absence of other specified parts of digestive tract; Translations: [ACQ ABSENCE OTH PART DIGESTV TRACT] Onset: 3 Episodic Residual codes; unclassified (1 source) Acquired absence of both cervix and uterus; Translations: [ACQUIRED ABSENCE BOTH CERVIX AND UTERUS] Onset: 3 Episodic Residual codes; unclassified (2 sources) Other specified health status; Translations: [Other specified health status] Onset: 4 Episodic Spondylosis; intervertebral disc disorders; other back problems (20 sources) Inflammation of sacroiliac joint; Translations: [Sacroiliitis, not elsewhere classified] Onset: 9 07-14-2022 Chronic Spondylosis; intervertebral disc disorders; other back problems (20 sources) Chronic neck pain; Translations: [Cervicalgia] Onset: 9 05-20-2019 Episodic Syncope (8 sources) Near syncope; Translations: [Syncope and collapse] Episodic Unclassified (1 source) Ill Onset: 4 Urinary tract infections (8 sources) Chronic cystitis 05-20-2019 Chronic Urinary tract infections (20 sources) Acute cystitis; Translations: [Acute cystitis without hematuria] Onset: 2 Resolved: 2 Episodic Past or Other Problems Problem Classification Problem Date Documented Da te Episodic/Chronic Abdominal pain (20 sources) Abdominal pain; Translations: [Unspecified abdominal pain] Onset: 9 Resolved: 3 Episodic Cardiac dysrhythmias (4 sources) Bradycardia; Translations: [Bradycardia, unspecified] Onset: 4 06-17-2024 Episodic Conditions associated with dizziness or vertigo (20 sources) Dizziness; Translations: [Dizziness and giddiness] Onset: 3 04-14-2022 Episodic Diabetes mellitus without complication (20 sources) Acute hyperglycemia; Translations: [Hyperglycemia, unspecified] Onset: 2 11-14-2022 Episodic Disorders of teeth and jaw (20 sources) Temporomandibular joint disorder; Translations: [Unspecified temporomandibular joint disorder, unspecified side] Onset: 9 05-30-2023 Episodic E Codes: Natural/environment (1 source) Exposure to other specified factors, subsequent encounter; Translations: [EXPOS OTH SPEC FACTORS SUBSEQUENT] Onset: 2 Episodic Fluid and electrolyte disorders (20 sources) Acute hyponatremia; Translations: [Hypo-osmolality and hyponatremia] Onset: 4 07-14-2022 Episodic Immunizations and screening for infectious disease (1 source) Contact with and (suspected) exposure to other viral communicable diseases Onset: 1 Resolved: 1 Episodic Malaise and fatigue (20 sources) Asthenia; Translations: [Weakness] Onset: 3 06-20-2022 Episodic Mood disorders (20 sources) Mood disorders Onset: 3 09-17-2023 Nonmalignant breast conditions (20 sources) Breast lump; Translations: [Unspecified lump in unspecified breast] Onset: 9 05-30-2023 Episodic Nonspecific chest pain (20 sources) Chest pain; Translations: [Chest pain, unspecified] Onset: 9 Resolved: 4 02-05-2022 Episodic Other and unspecified benign neoplasm (20 sources) History of polyp of colon; Translations: [History of colonic polyps] Onset: 9 04-11-2023 Episodic Other bone disease and musculoskeletal deformities (20 sources) Osteopenia; Translations: [Other specified disorders of bone density and structure, unspecified site] Onset: 3 04-10-2023 Episodic Other circulatory disease (20 sources) Elevated blood pressure; Translations: [Elevated blood-pressure reading, without diagnosis of hypertension] Onset: 9 Resolved: 3 09-17-2023 Episodic Other circulatory disease (2 sources) Orthostatic hypotension; Translations: [Orthostatic hypotension] Onset: 4 06-17-2024 Episodic Other connective tissue disease (20 sources) Adhesive capsulitis of shoulder; Translations: [Adhesive capsulitis of unspecified shoulder] Onset: 9 05-30-2023 Episodic Other diseases of kidney and ureters (1 source) Cyst of kidney, acquired; Translations: [CYST OF KIDNEY ACQUIRED] Onset: 2 Episodic Other fractures (1 source) Fracture of one rib, left side, subsequent encounter for fracture with routine healing; Translations: [FX 1 RIB LT SIDE SUBSEQUENT FX RTN] Onset: 2 Episodic Other gastrointestinal disorders (20 sources) Constipation; Translations: [Constipation, unspecified] Onset: 4 06-20-2022 Episodic Other gastrointestinal disorders (7 sources) Diarrhea, unspecified; Translations: [DIARRHEA UNSPECIFIED] Onset: 3 Episodic Other hematologic conditions (1 source) Cyst of spleen; Translations: [CYST OF SPLEEN] Onset: 2 Episodic Other nervous system disorders (20 sources) Incoordination; Translations: [Unspecified lack of coordination] Onset: 3 04-10-2023 Episodic Other nutritional; endocrine; and metabolic disorders (20 sources) Hypervitaminosis D; 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] Onset: 3 Resolved: 3 09-17-2023 Chronic Other nutritional; endocrine; and metabolic disorders (8 sources) Body mass index less than 20; Translations: [Body mass index (BMI) 19.9 or less, adult] Onset: 4 06-17-2024 Episodic Other nutritional; endocrine; and metabolic disorders (20 sources) Decrease in appetite; Translations: [Anorexia] Onset: 4 07-14-2022 Episodic Other nutritional; endocrine; and metabolic disorders (20 sources) Weight loss; Translations: [Abnormal weight loss] Onset: 4 02-12-2023 Episodic Other nutritional; endocrine; and metabolic disorders (20 sources) Underweight; Translations: [Underweight] Onset: 3 09-17-2023 Episodic Other nutritional; endocrine; and metabolic disorders (9 sources) Weight decreased; Translations: [Abnormal weight loss] Onset: 4 02-12-2023 Episodic Other skin disorders (20 sources) Mass of lower limb; Translations: [Localized swelling, mass and lump, unspecified lower limb] Onset: 9 05-30-2023 Episodic Other upper respiratory infections (1 source) Acute upper respiratory infection, unspecified Onset: 1 Resolved: 1 Episodic Residual codes; unclassified (20 sources) Altered mental status; Translations: [Altered mental status, unspecified] Onset: 4 07-14-2022 Episodic Residual codes; unclassified (4 sources) Localized edema; Translations: [LOCALIZED EDEMA] Onset: 2 Episodic Residual codes; unclassified (20 sources) Insomnia; Translations: [Insomnia, unspecified] Onset: 9 05-30-2023 Episodic Residual codes; unclassified (2 sources) Never smoked tobacco; Translations: [Other specified health status] Onset: 4 06-17-2024 Episodic Unclassified (8 sources) Never smoked tobacco; Translations: [Never a smoker] Unclassified (1 source) Onset: 4 06-17-2024 Results Test Name Value Interpretation Reference Range Facility Ambulatory Visit Summaryon 0 04-14-2025 Ambulatory Visit Summary Ambulatory Visit Summary MARITZA VICENTE :1940 Visit Date:04/14/2025 Ambulatory Visit Instructions Your Diagnosis Other urethral stricture, female History of recurrent UTI (urinary tract infection) Renal cyst Your Care Team Attending Physician - Haile DAVIS MD Primary Care Physician - NONE, XXXX This Is Your Medications List conjugated estrogens topical (Premarin Vaginal 0.625 mg/g cream with applicator) Contact prescribing physician if questions or concerns busPIRone cholecalciferol (Vitamin D3) famotidine ferrous sulfate lisinopril magnesium amino acids chelate metformin (metformin 500 mg ER Tab) multivitamin with minerals (Centrum Silver) sertraline (sertraline 25 mg Tab) simvastatin Procedures Performed UD - Urethral dilatation (04/14/2025), Dilation of urethra (05/12/2024), Cystourethroscopy with dilation of urethral stricture (10/30/2022), Cystourethroscopy with dilation of urethral stricture (02/16/2020), Cystourethroscopy with dilation of urethral stricture (07/01/2018), Dilation of urethra (07/26/2010), Appendectomy, Cholecystectomy, Colonoscopy, elbow surgery, Hysterectomy, neck surgery. Discharge Vitals Heart Rate (Peripheral) 60 Respiratory Rate 18 Blood Pressure 140/62 Height 157 cm Height 62 in Weight 51.8 kg Weight 114.199 lb BMI 21.02 What to do next Scheduled Follow-Up Appointments Saturday2025 2:15 PM EDT With: Haile DAVIS MD [facility] [place] [address]- You Need to Schedule the Following Appointments Follow Up with aHile DAVIS MD, URL When: Where: [facility] [address] [place] [address] [phone] Medications What How Much When Why Instructions Changed conjugated estrogens topical (Premarin Vaginal 0.625 mg/ g cream with applicator) 0.5 Gram Vaginal Saturday History of recurrent UTI (urinary tract infection) Pickup at [facility]. Unchanged busPIRone By Mouth 2 times a [...] Contact prescribing physician if questions or concerns Pharmacy Information [facility]: [address] [place], [place] [id number] [phone] Medications and Immunizations Administered Given lidocaine Top 2% Gel w/Appl 6 mL, 6 mL, Topical. For: Other urethral stricture, female Allergies [place] (Weakness) Valium (Unknown Reaction) morphine (Unknown Reaction) Problems Ongoing - Any problem that you are currently receiving treatment for. Chronic cystitis Chronic neck pain Diabetes History of recurrent UTI (urinary tract infection) Hx of migraine headaches Hypertension Other urethral stricture, female Renal cyst Urgency of urination Urine frequency Historical - Any problem that you are no longer receiving treatment for. UTI (urinary tract infection) Patient Survey You may receive a survey via text or e-mail asking about your office visit. Please share your experience with us by completing your survey. We appreciate your feedback and thank you for choosing us for your care. Education Materials Urethral Stricture Urethral stricture is when the tube that drains pee (urine) from the bladder out of the body (urethra) becomes too narrow. The urethra can become narrow because of scar tissue, infection, surgery, or an injury. This can make it difficult to pee (urinate). In females, the urethra opens above the vaginal opening. In males, the urethra opens at the tip of the penis, and the urethra is much longer than it is in females. Because of the length of the male urethra, urethral stricture is much more common in males. What are the causes? In males and females, common causes of urethral stricture include: ??? Urinary tract infection (UTI). ??? Sexually transmitted infection (STI). ??? Using a soft tube in the urethra to drain pee from the bladder (urinary catheter). ??? Urinary t (more content not included)... Normal Nguyen [facility] Urology Office/Clinic Noteon 04-14-2025 Urology Office/Clinic Note Urology Office/Clinic Note Chief Complaint 1 year follow up HPI Staff 1 year follow up w/IO office UD Previous DX: HX of recurrent UTI, renal cyst, urgency of urination, urethral stricture, urinary frequency History of Present Illness Tests reviewed: reviewed UA, op note, CT scan I have reviewed the previous health record information and history for this patient from Dr. Davis. I have reviewed and verified the staff HPI to be accurate for this encounter. Review of Systems PHQ Score Initial Depression Screen Score: 0 SCORE ROS - Provider Constitutional: denies weight loss, denies hot flashes. Eyes: denies eye problems. Gastrointestinal: denies nausea, denies vomiting. Cardiovascular: denies chest pain or angina. Integumentary: no dryness Musculoskeletal: denies musculoskeletal symptoms. ENMT: denies otolaryngeal symptoms. Respiratory: no shortness of breath. Heme/Lymph: denies easy bleeding tendency, denies easy bruising tendency. Psychiatric: no confusion, no anxiety. Genitourinary: See HPI. Physical Exam Vitals & Measurements HR: 60(Peripheral) RR: 18 BP: 140/62 HT: 157 cm HT: 62 in WT: 51.8 kg WT: 114.199 lb BMI: 21.02 General Appearance: alert , no acute distress, well nourished, well developed female. Procedure Operative Information Anesthesia Type: Local Procedure: Local Urethral Dilation Complications: None Surgical risks, benefits, details of the procedure have been explained to the patient. Full informed consent has been obtained. Intraoperative Information Prepped: Patient is brought back to the endoscopy suite. Patient is placed in modified dorso/lithotomy position. Patient prepped in the usual fashion with Betadine solution. 2% Xylocaine Jelly is placed per Urethra. The Urethra is: Tight The Urethra was dilated to: 22-30 [place] with sounds. Specimens Removed: None Postoperative Information Patient is discharged home. Follow up arranged. Assessment/Plan 1. Other urethral stricture, female (N35.82: Other urethral stricture, female) Pt has been having dilations since she was 36, both IO as well as formal urethrotomy under anesthesia. [1] Last UD 05/12/24. UA today shows trace leuks. Pt had IO UD today wo complications. -F/u in 1 yr for UD 2. History of recurrent UTI (urinary tract infection) (Z87.440: Personal history of urinary (tract) infections) Using Premarin cream. Refills sent to [facility]. 3. Renal cyst (N28.1: Cyst of kidney, acquired) CT AP wo con 09/02/22 - No hydro or stones. Intracortical hemorrhagic/proteinaceous cyst involving the lateral cortex of the left kidney measures [address] AP w/wo con 06/03/24 [facility] [place] No hydro or stones. No renal mass or cyst noted. Follow-up With When Contact Information RYAN LOBO, Haile Garay, [facility] [address], [place] [address] [phone] Additional Instructions: 1 yr for UD Patient Education Urethral Stricture I, Edilia Moreno, personally scribed for Dr. Davis on 04/14/2025 15:06:03. . Documentation recorded by the scribe, Edilia Moreno, accurately reflects the services(s) I performed and decisions made by me. Authenticated by Dr. Davis on 04/14/2025 15:08:59. Problem List/Past Medical History Ongoing Chronic cystitis Chronic neck pain Diabetes History of recurrent UTI (urinary tract infection) Hx of migraine headaches Hypertension Other urethral stricture, female Renal cyst Urgency of urination Urine frequency Historical UTI (urinary tract infection) Procedure/Surgical History UD - Urethral dilatation (04/14/2025), Dilation of urethra (05/12/2024), Cystourethroscopy with dilation of urethral stricture (10/30/2022), Cystourethroscopy with dilation of urethral stricture (02/16/2020), Cystourethroscopy with dilation of urethral stricture (07/01/2018), Dilation of urethra (07/26/2010), Appendectomy, Cholecystectomy, Colonoscopy, elbow surgery, Hysterectomy, neck surgery. Medications busPIRone, Oral, BID Centrum Silver, Oral, Daily famotidine ferrous sulfate, Oral lisinopril, Oral, Daily magnesium amino acids chelate, Oral metformin 500 mg ER Tab, Oral, Daily Premarin Vaginal 0.625 mg/g cream with applicator, 1 gm, Vaginal, MonWedFri, 11 refills sertraline 25 mg Tab, Oral, Daily simvastatin, Oral Vitamin D3 Allergies [place] (Weakness) Valium (Unknown Reaction) morphine (Unknown Reaction) Social History Alcohol - No Risk, 02/16/2020 Tobacco Never (less than 100 in lifetime) Tobacco Use:. Never Smokeless Tobacco Use:., 04/14/2025 Family History Family history is unknown Immunizations Vaccine Date Status Comments influenza virus vaccine, inactivated 07/17/2024 Recorded zoster vaccine, inactivated 11/05/2023 Recorded RSV vaccine, preF A-preF B, recombinant 09/20/2023 Recorded pneumococcal 20-valent conjugate vaccine 08/26/2023 Recorded influenza virus vaccine, inactivated 08/14 (more content not included)... Normal [facility] Comment on above: Result Comment: Elec tronically Signed By: Haile DAVIS MD\.br\Date and Time Signed: 04/14/25 15:09 EDT\.br\Electronically Co-Signed By: Edilia Moreno\.br\Date and Time Co-Signed: 04/14/25 15:06 EDT ALBUMIN, RANDOM URINE W/CREA TININEon 03-31-2025 ALBUMIN, URINE 5.5 mg/dL Normal See Note: [facility] Comment on above: Order Comment: SPLIT 03/30/2025 FROM [id number] Result Comment: Refe rence Range: Reference Range Not established Performed By: #### 6 517 #### [facility] [address], [address] [place] [id number] Acid Cutter: Mata Joseph MD ALBUMIN/CREATININE RATIO, RANDOM URINE 58 mg/g creat High <30 [facility] Comment on above: Order Comment: SPLIT 03/30/2025 FROM [id number] Result Comment: The ADA defines abnormalities in albumin excretion as follows: Albuminuria Category Result (mg/g creatinine) Normal to Mildly increased <30 Moderately increased 30-299 Severely increased > OR = 300 The ADA recommends that at least two of three specimens collected within a 3-6 month period be abnormal before considering a patient to be within a diagnostic category. Performed By: #### 6 517 #### [facility] [place] [address] Acid Cutter: Mata Joseph MD Creatinine (U) [Mass/Vol] 95 mg/dL Normal 20-275 [facility] Comment on above: Order Comment: SPLIT 03/30/2025 FROM [id number] Performed By: #### 6 517 #### [facility] [place] [address] Acid Cutter: Mata Joseph MD CBC (H/H, RBC, INDICES, WBC, PLT)on 03-31-2025 Erythrocyte distribution width (RBC) [Ratio] 12.4 % Normal 11.0-15.0 [facility] Comment on above: Performed By: #### 3 6127, 7600, 30128, 1759, 496, 72543 #### [facility] [place] [address] Acid Cutter: Mata Joseph MD Hematocrit (Bld) [Volume fraction] 42.8 % Normal 35.0-45.0 [facility] Comment on above: Performed By: #### 3 6127, 7600, 70969, 1759, 496, 73866 #### [facility] [place] [address] Acid Cutter: Mata Joseph MD Hemoglobin (Bld) [Mass/Vol] 14.1 g/dL Normal 11.7-15.5 [facility] Comment on above: Performed By: #### 3 6127, 7600, 89407, 1759, 496, 51777 #### [facility] [place] [address] Acid Cutter: Mata Joseph MD MCH (RBC) [Entitic mass] 28.9 pg Normal 27.0-33.0 [facility] Comment on above: Performed By: #### 3 6127, 7600, 95872, 1759, 496, 05473 #### [facility] [place] [address] Acid Cutter: Mata Joseph MD MCHC (RBC) [Mass/Vol] 32.9 g/dL Normal 32.0-36.[address] [facility] Comment on above: Result Comment: For adults, a slight decrease in the calculated MCHC value (in the range of 30 to 32 g/dL) is most likely not clinically significant; however, it should be interpreted with caution in correlation with other red cell parameters and the patient's clinical condition. Performed By: #### 3 6127, 7600, 14645, 1759, 496, 36669 #### [facility] [place] [address] Acid Cutter: Mata Joseph MD MCV (RBC) [Entitic vol] 87.7 fL Normal 80.0-100.0 [facility] Comment on above: Performed By: #### 3 6127, 7600, 10883, 1759, 496, 91401 #### [facility] [place] [address] Acid Cutter: Mata Joseph MD Platelet mean volume (Bld) [Entitic vol] 10.1 fL Normal 7.5-12.5 [facility] Comment on above: Performed By: #### 3 6127, 7600, 06894, 1759, 496, 67562 #### [facility] [place] [address] Acid Cutter: Mata Joseph MD Platelets (Bld) [#/Vol] 185 10*3/uL Normal 140-400 [facility] Comment on above: Performed By: #### 3 6127, 7600, 23747, 1759, 496, 11271 #### [facility] [place] [address] Acid Cutter: Mata Joseph MD RBC (Bld) [#/Vol] 4.88 10*6/uL Normal 3.80-5.10 [facility] Comment on above: Performed By: #### 3 6127, 7600, 76138, 1759, 496, 88159 #### [facility] [place] [address] Acid Cutter: Mata Joseph MD WBC (Bld) [#/Vol] 5.6 10*3/uL Normal 3.8-10.8 [facility] Comment on above: Performed By: #### 3 6127, 7600, 05756, 1759, 496, 04875 #### [facility] [place] [address] Acid Cutter: Mata Joseph MD [facility] 03-31-2025 Albumin [Mass/Vol] 4.2 g/dL Normal 3.6-5.1 [facility] Comment on above: Performed By: #### 3 6127, 7600, 27404, 1759, 496, 51104 #### [facility] [place] [address] Acid Cutter: Mata Joseph MD Albumin/Globulin [Mass ratio] 1.8 {ratio} Normal 1.0-2.5 [facility] Comment on above: Performed By: #### 3 6127, 7600, 42572, 1759, 496, 41452 #### [facility] [place] [address] Acid Cutter: Mata Joseph MD ALP [Catalytic activity/Vol] 45 U/L Normal 37-153 [facility] Comment on above: Performed By: #### 3 6127, 7600, 10950, 1759, 496, 72660 #### [facility] [place] [address] Acid Cutter: Mata Joseph MD ALT [Catalytic activity/Vol] 16 U/L Normal 6-29 [facility] Comment on above: Performed By: #### 3 6127, 7600, 84116, 1759, 496, 93931 #### [facility] of [address], [address] [place] [address] Acid Cutter: Mata Joseph MD AST [Catalytic activity/Vol] 18 U/L Normal 10-35 [facility] Comment on above: Performed By: #### 3 6127, 7600, 67985, 1759, 496, 15678 #### [facility] [address], [address] [place] [address] Acid Cutter: Mata Joseph MD Bilirubin [Mass/Vol] 0.6 mg/dL Normal 0.2-1.2 [facility] Comment on above: Performed By: #### 3 6127, 7600, 80967, 1759, 496, 93424 #### [facility] [place] [address] Acid Cutter: Mata Joseph MD BUN/CREATININE RATIO SEE NOTE: Normal 6-22 [facility] Comment on above: Result Comment: Not Reported: BUN and Creatinine are within reference range. Performed By: #### 3 6127, 7600, 26729, 1759, 496, 10199 #### [facility] of [address], [address] [place] [address] Acid Cutter: Mata Joseph MD Calcium [Mass/Vol] 9.9 mg/dL Normal 8.6-10.4 [facility] Comment on above: Performed By: #### 3 6127, 7600, 02566, 1759, 496, 11051 #### [facility] [address], [address] [place] [address] Acid Cutter: Mata Joseph MD Chloride [Moles/Vol] 98 mmol/L Normal 98-110 [facility] Comment on above: Performed By: #### 3 6127, 7600, 74796, 1759, 496, 96060 #### [facility] [place] [address] Acid Cutter: Mata Joseph MD CO2 [Moles/Vol] 28 mmol/L Normal 20-32 [facility] Comment on above: Performed By: #### 3 6127, 7600, 05551, 1759, 496, 34341 #### [facility] [place] [address] Acid Cutter: Mata Joseph MD Creatinine [Mass/Vol] 0.70 mg/dL Normal 0.60-0.[address] [facility] Comment on above: Performed By: #### 3 6127, 7600, 95729, 1759, 496, 80905 #### [facility] [place] [address] Acid Cutter: Mata Joseph MD GFR/1.73 sq M.predicted among non-blacks MDRD (S/P/Bld) [Vol rate/Area] 86 mL/min/{1.73_m2} Normal > OR = 60 [facility] Comment on above: Performed By: #### 3 61, 7600, 70051, 1759, 496, 06095 #### [facility] [place] [address] Acid Cutter: Mata Joseph MD Globulin (S) [Mass/Vol] 2.4 g/dL Normal 1.9-3.7 [facility] Comment on above: Performed By: #### 3 6127, 7600, 04078, 1759, 496, 54532 #### [facility] [place] [address] Acid Cutter: Mata Joseph MD Glucose [Mass/Vol] 100 mg/dL Normal 65-139 [facility] Comment on above: Result Comment: Non-fasting reference interval For someone without known diabetes, a glucose value between 100 and 125 mg/dL is consistent with prediabetes and should be confirmed with a follow-up test. Performed By: #### 3 6127, 7600, 81895, 1759, 496, 70729 #### [facility] [place] [address] Acid Cutter: Mata Joseph MD Potassium [Moles/Vol] 4.6 mmol/L Normal 3.5-5.[address] [facility] Comment on above: Performed By: #### 3 6127, 7600, 93827, 1759, 496, 78801 #### [facility] [place] [address] Acid Cutter: Mata Joseph MD Protein [Mass/Vol] 6.6 g/dL Normal 6.1-8.1 [facility] Comment on above: Performed By: #### 3 6127, 7600, 22259, 1759, 496, 07929 #### [facility] [place] [address] Acid Cutter: Mata Joseph MD Sodium [Moles/Vol] 134 mmol/L Low 135-146 [facility] Comment on above: Performed By: #### 3 6127, 7600, 67353, 1759, 496, 67739 #### [facility] [place] [address] Acid Cutter: Mata Joseph MD Urea nitrogen [Mass/Vol] 16 mg/dL Normal 7-25 [facility] Comment on above: Performed By: #### 3 6127, 7600, 34122, 1759, 496, 97829 #### [facility] [place] [address] Acid Cutter: Mata Joseph MD HEMOGLOBIN A1con 03-31-2025 HbA1c (Bld) [Mass fraction] 5.8 % High <5.7 [facility] Comment on above: Result Comment: For someone without known diabetes, a hemoglobin A1c value between 5.7% and 6.4% is consistent with prediabetes and should be confirmed with a follow-up test. For someone with known diabetes, a value <7% indicates that their diabetes is well controlled. A1c targets should be individualized based on duration of diabetes, age, comorbid conditions, and other considerations. This assay result is consistent with an increased risk of diabetes. Currently, no consensus exists regarding use of hemoglobin A1c for diagnosis of diabetes for children. Performed By: #### 3 6127, 7600, 88540, 1759, 496, 19929 #### [facility] [address], [address] [place] [address] Acid Cutter: Mata Joseph MD LIPID PANEL, [facility] 03-14 Cholesterol [Mass/Vol] 162 mg/dL Normal <200 [facility] Comment on above: Order Comment: FASTI NG:NO MULTIPLE TESTING PRIORITIES; ROUTINE TESTING TO FOLLOW. FASTING: NO Performed By: #### 3 6127, 7600, 34250, 1759, 496, 54946 #### [facility] [address], [address] [place] [address] Acid Cutter: Mata Joseph MD Cholesterol in HDL [Mass/Vol] 66 mg/dL Normal > OR = 50 [facility] Comment on above: Order Comment: FASTI NG:NO MULTIPLE TESTING PRIORITIES; ROUTINE TESTING TO FOLLOW. FASTING: NO Performed By: #### 3 6127, 7600, 11601, 1759, 496, 76097 #### [facility] [address], [address] [place] [address] Acid Cutter: Mata Joseph MD Cholesterol in LDL [Mass/Vol] 80 mg/dL Normal [facility] Comment on above: Order Comment: FASTI NG:NO MULTIPLE TESTING PRIORITIES; ROUTINE TESTING TO FOLLOW. FASTING: NO Result Comment: Refe rence range: <100 Desirable range <100 mg/dL for primary prevention; <70 mg/dL for patients with CHD or diabetic patients with > or = 2 CHD risk factors. LDL-C is now calculated using the Emeterio-Moira calculation, which is a validated novel method providing better accuracy than the Friedewald equation in the estimation of LDL-C. Emeterio MONTENEGRO et al. CECILIA. 2013;310(19): 6157-7383 (http://education.Fleksy.OMEGA MORGAN/faq/JYD092) Performed By: #### 3 6127, 7600, 62546, 1759, 496, 56138 #### [facility] [address], [address] [place] [address] Acid Cutter: Mata Joseph MD Cholesterol.total/Cho lesterol in HDL [Mass ratio] 2.5 {ratio} Normal <5.0 [facility] Comment on above: Order Comment: FASTI NG:NO MULTIPLE TESTING PRIORITIES; ROUTINE TESTING TO FOLLOW. FASTING: NO Performed By: #### 3 6127, 7600, 70084, 1759, 496, 94108 #### [facility] [place] [address] Acid Cutter: Mata Joseph MD NON HDL CHOLESTEROL 96 mg/dL (calc) Normal <130 [facility] Comment on above: Order Comment: FASTI NG:NO MULTIPLE TESTING PRIORITIES; ROUTINE TESTING TO FOLLOW. FASTING: NO Result Comment: For patients with diabetes plus 1 major ASCVD risk factor, treating to a non-HDL-C goal of <100 mg/dL (LDL-C of <70 mg/dL) is considered a therapeutic option. Performed By: #### 3 6127, 7600, 68177, 1759, 496, 03875 #### [facility] [place] [address] Acid Cutter: Mata Joseph MD Triglyceride [Mass/Vol] 84 mg/dL Normal <150 [facility] Comment on above: Order Comment: FASTI NG:NO MULTIPLE TESTING PRIORITIES; ROUTINE TESTING TO FOLLOW. FASTING: NO Performed By: #### 3 6127, 7600, 32586, 1759, 496, 37447 #### [facility] [place] [address] Acid Cutter: Mata Joseph MD TSH W/REFLEX TO FT4on 2024 TSH W/REFLEX TO FT4 1.88 mIU/L Normal 0.40-4.50 [facility] Comment on above: Performed By: #### 3 6127, 7600, 48430, 1759, 496, 63578 #### [facility] [place] [address] Acid Cutter: Mata Joseph MD VITAMIN D,25-OH,TOTAL,IAon 0 03-31-2025 VITAMIN D,25-OH,TOTAL,IA 99 ng/mL Normal 30-100 [facility] Comment on above: Result Comment: Remedios min D Status 25-OH Vitamin D: Deficiency: <20 ng/mL Insufficiency: 20 - 29 ng/mL Optimal: > or = 30 ng/mL For 25-OH Vitamin D testing on patients on D2-supplementation and patients for whom quantitation of D2 and D3 fractions is required, the QuestAssureD(TM) 25-OH VIT D, (D2,D3), LC/MS/MS is recommended: order code 30544 (patients >2yrs). See Note 1 Note 1 For additional information, please refer to http://education.NexDefense/faq/ALD478 (This link is being provided for informational/ educational purposes only.) Performed By: #### 3 6127, 7600, 05375, 1759, 496, 27325 #### [facility] [place] [id number] [facility], [address] [place] [address] Acid Cutter: Mata Joseph MD MM screening mammo BI w/CADo n 01-27-2025 MM screening mammo BI w/CAD [facility] [address] [place] [address] Mammography Report Signed Patient: Maritza Vicente MR#: [id number] 13 : 1940 Acct:[id number] Age/Sex: 84 / F Adm Date: 01/27/25 Loc: ID Room: Type: [facility] Attending Dr: Referral Self Ordering Provider: SELF,REFERRAL Date of Service: 01/27/25 Procedure(s): MM screening mammo BI w/CAD Accession Number(s): ([id number]) MM/MM screening mammo BI w/CAD: SCREENING Copies to: SELF,REFERRAL Jackie Adan, [employer] CLINICAL DATA: Screening for malignancy. SCREENING MAMMOGRAM - FULL FIELD DIGITAL WITH TOMOSYNTHESIS AND CAD COMPARISON:Mammograms dating back to 2020 Tomosynthesis craniocaudal and mediolateral oblique views of both breasts were obtained using low- dose digital technique. This examination was reviewed with the aid of CAD. FINDINGS: The breast parenchyma is heterogeneously dense. There are no dominant masses, typically malignant calcifications or architectural distortion. There has been no significant interval change. MM/MM screening mammo BI w/CAD IMPRESSION: NO MAMMOGRAPHIC EVIDENCE OF MALIGNANCY. ROUTINE FOLLOW-UP IS RECOMMENDED IN ONE YEAR. RESULT CODE: 1 Negative DENSITY CODE: 3 (approximately 51-75% glandular) The breasts are heterogeneously dense, which may obscure small masses. FOLLOW UP: 1YR The false-negative rate of mammography is approximately 10-percent. Management of a palpable abnormality must be based on clinical grounds. Patient was entered into a reminder system with a target due date for the next mammogram. Impression dictated by: Sergio Rivera Jr., D.OJulia01/27/2025 3:48 PM Dictation Location: [facility] Dictated By: Sergio Rivera Jr DO 01/27/25 1548 Signed By: 01/27/25 1548 Normal [facility] Mammography reportOrdered By : Sergio Rivera on 01-27-2025 Diagnostic imaging study [facility] [address] [place] [address] Mammography Report Signed Patient: Maritza Vicente MR#: [id number] : 1940 Acct:[id number] Age/Sex: 84 / F Adm Date: 5 Loc: ID Room: Type: [facility] Attending Dr: Referral Self Ordering Provider: SELF,REFERRAL Date of Service: 01/27/25 Procedure(s): MM screening mammo BI w/CAD Accession Number(s): ([id number]) MM/MM screening mammo BI w/CAD: SCREENING Copies to: SELF,REFERRAL MADELIN Moore~ CLINICAL DATA: Screening for malignancy. SCREENING MAMMOGRAM - FULL FIELD DIGITAL WITH TOMOSYNTHESIS AND CAD COMPARISON:Mammograms dating back to 2020 Tomosynthesis craniocaudal and mediolateral oblique views of both breasts were obtained using low-dose digital technique. This examination was reviewed with the aid of CAD. FINDINGS: The breast parenchyma is heterogeneously dense. There are no dominant masses, typically malignant calcifications or architectural distortion. There has been no significant interval change. MM/MM screening mammo BI w/CAD IMPRESSION: NO MAMMOGRAPHIC EVIDENCE OF MALIGNANCY. ROUTINE FOLLOW-UP IS RECOMMENDED IN ONE YEAR. RESULT CODE: 1 Negative DENSITY CODE: 3 (approximately 51-75% glandular) The breasts are heterogeneouslydense, which may obscure small masses. FOLLOW UP: 1YR The false-negative rate of mammography is approximately 10-percent. Management of a palpable abnormality must be based on clinical grounds. Patient was entered into a reminder system with a target due date for the next mammogram. Impression dictated by: Sergio Rivera Jr., D.O.01/27/2025 3:48 PM Dictation Location: [facility] Dictated By: Sergio Rivera Jr DO 01/27/25 1548 Signed By: 01/27/25 1548 [facility] HbA1c (Bld) [Mass fraction]o n 10-15-2024 Interpretation and review of laboratory results Normal [facility] Laboratory - Hematology and Cell countson 10-15-2024 HbA1c (Bld) [Mass fraction] 5.5 % [facility] Urinalysis macro (dipstick) panel (U)on 10-15-2024 Bilirubin, UA Negative Negative - 4(70) +++ mg/dL [facility] Blood, UA Negative Negative - 50 Spencer/mcL [facility] Clarity, UA Clear [facility] Color, UA Yellow [facility] Glucose, UA Negative Negative - 2000(110) ++++ mg/dL [facility] Interpretation and review of laboratory results Normal [facility] Ketones, UA Negative Negative - 160(16) ++++ mg/dL [facility] Leukocytes, UA Negative Negative - 500+++ Bret/mcL [facility] Nitrite, UA Negative Negative - Positive [facility] pH, UA 0 5 - 9 [facility] Protein, UA Negative Negative - 2000(20) ++++ mg/dL [facility] Spec Grav, UA 1.1 1 - 1.03 [facility] Urobilinogen, UA 0.2 0.2 - 12 mg/dL [facility] Celiacon 09-30-2024 Deamidated Gliadin Abs, IgA 2 Normal 0-19 [facility] Comment on above: Result Comment: Nega tive 0 - 19 Weak Positive 20 - 30 Moderate to Strong Positive >30 Performed By: #### C ELIAC ####[facility] , Deamidated Gliadin Abs, IgG 1 Normal 0-19 [facility] Comment on above: Result Comment: Nega tive 0 - 19 Weak Positive 20 - 30 Moderate to Strong Positive >30 Performed By: #### C ELIAC ####[facility] , Endomysial Antibody IgA Negative Normal Negative [facility] Comment on above: Performed By: #### C ELIAC ####[facility] , Immunoglobulin A, Qn, Serum 172 mg/dL Normal 64-422 [facility] Comment on above: Result Comment: Perf ormed at: - [facility] [place] [id number] Licensed Life And Health Agent: Donny Lance PhD, Phone: [phone] PERFORMED BY: [place] [address] PATHOLOGIST DAMAGE CUTTER CRISTAL LANGFORD M.D. Performed By: #### C ELIAC ####[facility] , T-Transglutaminase (tTG) IgA <2 Normal 0-3 [facility] Comment on above: Result Comment: Nega tive 0 - 3 Weak Positive 4 - 10 Positive >10 Tissue Transglutaminase (tTG) has been identified as the endomysial antigen. Studies have demonstr- ated that endomysial IgA antibodies have over 99% specificity for gluten sensitive enteropathy. Performed By: #### C ELIAC ####[facility] , T-Transglutaminase (tTG) IgG <2 Normal 0-5 [facility] Comment on above: Result Comment: Nega tive 0 - 5 Weak Positive 6 - 9 Positive >9 Performed By: #### C ELIAC ####[facility] , Clostridium Difficileon 11- Clostridium Difficile Negative Normal Negative [facility] Comment on above: Result Comment: Test ing performed by RT-PCR PERFORMED BY: [place] [address] PATHOLOGIST DAMAGE CUTTER CRISTAL LANGFORD M.D. Performed By: #### C DT ####[facility] [place] [address] [place]#### GI PROFILE, STL ####[facility] , Gastrointestinal Profile, PC Deandre 08-31-2024 Adenovirus F 40/41 Not detected Normal Not Detected [facility] Comment on above: Performed By: #### C DT ####[address] [address] [place]#### GI PROFILE, STL ####[facility] , Astrovirus Not detected Normal Not Detected [facility] Comment on above: Performed By: #### C DT ####[address] [address] [place]#### GI PROFILE, STL ####[facility] , C Difficile Toxin A/B Not detected Normal Not Detected [facility] Comment on above: Performed By: #### C DT ####[address] [address] [place]#### GI PROFILE, STL ####[facility] , Campylobacter Not detected Normal Not Detected [facility] Comment on above: Performed By: #### C DT ####[address] [address] [place]#### GI PROFILE, STL ####[facility] , Cryptosporidium Not detected Normal Not Detected [facility] Comment on above: Performed By: #### C DT ####[address] [address] [place]#### GI PROFILE, STL ####[facility] , Cyclospora cayetanensis Not detected Normal Not Detected [facility] Comment on above: Performed By: #### C DT ####[address] [address] [place]#### GI PROFILE, STL ####[facility] , E coli O157 Not applicable Normal Not Detected [facility] Comment on above: Performed By: #### C DT ####[address] [address] [place]#### GI PROFILE, STL ####[facility] , Entamoeba histolytica Not detected Normal Not Detected [facility] Comment on above: Performed By: #### C DT ####[place] [address] [place]#### GI PROFILE, STL ####[facility] , Enteroaggregative E coli Not detected Normal Not Detected [facility] Comment on above: Performed By: #### C DT ####[address] [address] [place]#### GI PROFILE, STL ####[facility] , Enteropathogenic E coli Not detected Normal Not Detected [facility] Comment on above: Performed By: #### C DT ####[place] [address] [place]#### GI PROFILE, STL ####[facility] , Enterotoxigenic E coli Not detected Normal Not Detected [facility] Comment on above: Performed By: #### C DT ####[address] [address] [place]#### GI PROFILE, STL ####[facility] , Giardia lamblia Not detected Normal Not Detected [facility] Comment on above: Performed By: #### C DT ####[address] [address] [place]#### GI PROFILE, STL ####[facility] , Norovirus GI/GII Not detected Normal Not Detected [facility] Comment on above: Performed By: #### C DT ####[place] [address] [place]#### GI PROFILE, STL ####[facility] , Plesiomonas shigelloides Not detected Normal Not Detected [facility] Comment on above: Performed By: #### C DT ####[facility] [place] [address] [place]#### GI PROFILE, STL ####[facility] , Rotavirus A Not detected Normal Not Detected [facility] Comment on above: Performed By: #### C DT ####[address] [address] [place]#### GI PROFILE, STL ####[facility] , Salmonella Not detected Normal Not Detected [facility] Comment on above: Performed By: #### C DT ####[address] [address] [place]#### GI PROFILE, STL ####[facility] , Sapovirus Not detected Normal Not Detected [facility] Comment on above: Result Comment: Perf ormed at: - [facility] [address] [id number] Licensed Life And Health Agent: Alfonso Canales MD, Phone: [phone] PERFORMED BY: [facility] [address] [place] [address] PATHOLOGIST DAMAGE CUTTER CRISTAL LANGFORD M.D. Performed By: #### C DT ####[address] [address] [place]#### GI PROFILE, STL ####[facility] , Qrhpk-trfgs-caqohtmlo E coli Not detected Normal Not Detected [facility] Comment on above: Performed By: #### C DT ####[address] [address] [place]#### GI PROFILE, STL ####[facility] , Shigella/Enteroinvasi ve E coli Not detected Normal Not Detected [facility] Comment on above: Performed By: #### C DT ####[place] [address] [place]#### GI PROFILE, STL ####[facility] , Vibrio Not detected Normal Not Detected [facility] Comment on above: Performed By: #### C DT ####[facility] [place] [address] [place]#### GI PROFILE, STL ####[facility] , Vibrio cholerae Not detected Normal Not Detected [facility] Comment on above: Performed By: #### C DT ####[facility] [place] [address] [place]#### GI PROFILE, STL ####[facility] , Yersinia enterocolitica Not detected Normal Not Detected [facility] Comment on above: Performed By: #### C DT ####[facility] [place] [address] [place]#### GI PROFILE, STL ####[facility] , RECURRENT VAGINITIS (HTRX)on 08-29-2024 ATOPOBIUM VAGINAE 0 [facility] Healthcare ATOPOBIUM VAGINAE Not detected [facility] BVAB 2,3 (BACTERIAL VAGINOSIS ASSOCIATED BACTERIA 2, 3); MOBILUNCUS SPP 0 [facility] BVAB 2,3 (BACTERIAL VAGINOSIS ASSOCIATED BACTERIA 2, 3); MOBILUNCUS SPP Not detected [facility] Healthcare MT ALBICANS, PARAPSILOSIS, TROPICALIS 0 [facility] Healthcare MT ALBICANS, PARAPSILOSIS, TROPICALIS Not detected [facility] MT GLABRATA 0 [facility] MT GLABRATA Not detected [facility] MT KRUSEI 0 [facility] MT KRUSEI Not detected [facility] CHLAMYDIA TRACHOMATIS 0 [facility] CHLAMYDIA TRACHOMATIS Not detected [facility] GARDNERELLA VAGINALIS 0 [facility] GARDNERELLA VAGINALIS Not detected [facility] MEGASPHAERA (TYPES 1, 2) 0 [facility] MEGASPHAERA (TYPES 1, 2) Not detected [facility] MYCOPLASMA GENITALIUM 0 [facility] MYCOPLASMA GENITALIUM Not detected [facility] NEISSERIA GONORRHOEAE 0 [facility] NEISSERIA GONORRHOEAE Not detected [facility] TRICHOMONAS VAGINALIS 0 [facility] TRICHOMONAS VAGINALIS Not detected [facility] BASIC METABOLIC PANLon 06-21 Anion gap [Moles/Vol] 4 mmol/L Low 5-15 [facility] Comment on above: Performed By: #### C BCA, BMP, 32224-6, 70032-4 #### [facility] ([id number]) [address] [place] [address] Calcium [Mass/Vol] 9.4 mg/dL Normal 8.5-10.5 [facility] Comment on above: Performed By: #### C BCA, BMP, 27175-8, 52360-3 #### [facility] ([id number]) [address] [place] [address] 32757 Chloride [Moles/Vol] 100 mmol/L Normal 98-109 [facility] Comment on above: Performed By: #### C BCA, BMP, 95862-9, 45710-8 #### [facility] ([id number]) [address] [place] [address] 52733 CO2 [Moles/Vol] 27 mmol/L Normal 22-32 [facility] Comment on above: Performed By: #### C BCA, BMP, 09123-5, 18292-3 #### [facility] ([id number]) [address] [place] [address] Creatinine [Mass/Vol] 0.56 mg/dL Normal 0.40-1.00 [facility] Comment on above: Result Comment: METH OD TRACEABLE TO IDMS STANDARD Performed By: #### C BCA, BMP, 45357-9, 64478-5 #### [facility] ([id number]) [address] [place] [address] 14267 eGFR (CKD-EPI) NON-RACE DEPENDENT >90 Normal >59 [facility] Comment on above: Result Comment: Reported eGFR is based on the CKD-EPI 2020 equation that does not use a race coefficient. Performed By: #### C BCA, BMP, 69958-3, 72649-0 #### [facility] ([id number]) [address] [place] [address] 23472 Glucose [Mass/Vol] 110 mg/dL High 65-99 [facility] Comment on above: Performed By: #### C AB, BMP, 11906-0, 73923-7 #### [facility] ([id number]) [address] [place] [address] 03140 Potassium [Moles/Vol] 4.2 mmol/L Normal 3.5-5.0 [facility] Comment on above: Performed By: #### C AB, BMP, 40180-1, 65009-4 #### [facility] ([id number]) [address] [place] [address] 08223 Sodium [Moles/Vol] 131 mmol/L Low 134-146 [facility] Comment on above: Performed By: #### C AB, BMP, 16328-0, 50089-4 #### [facility] ([id number]) [address] [place] [address] 89777 Urea nitrogen [Mass/Vol] 15 mg/dL Normal 5-27 [facility] Comment on above: Performed By: #### C AB, BMP, 44591-3, 44497-7 #### [facility] ([id number]) [address] [place] [address] 80245 CBC AND AUTO DIFFon 06-21-20 24 ABSOLUTE BASOPHIL 0.1 X10E9/L Normal 0.0-0.2 [facility] Comment on above: Performed By: #### C AB, BMP, 23340-9, 76093-4 #### [facility] ([id number]) [address] [place] [address] ABSOLUTE NEUTROPHIL 2.9 X10E9/L Normal 1.5-6.6 [facility] Comment on above: Performed By: #### C AB, BMP, 93752-9, 96905-3 #### [facility] ([id number]) [address] [place] [address] Basophils/100 WBC (Bld) 1.4 % Normal [facility] Comment on above: Performed By: #### C AB BMP, 42025-8, 37803-7 #### [facility] ([id number]) [address] [place] [address] Eosinophils (Bld) [#/Vol] 0.2 10*3/uL Normal 0.0-0.4 [facility] Comment on above: Performed By: #### C AB, BMP, 29247-6, 78702-2 #### [facility] ([id number]) [address] [place] [address] Eosinophils/100 WBC (Bld) 3.8 % Normal [facility] Comment on above: Performed By: #### Emmett BERGER, BMP, 01307-9, 69073-3 #### [facility] ([id number]) [address] [place] [address] Erythrocyte distribution width (RBC) [Ratio] 13.4 % Normal 11.5-15.0 [facility] Comment on above: Performed By: #### Emmett BERGER, BMP, 16373-3, 69215-3 #### [facility] ([id number]) [address] [place] [address]1565 Hematocrit (Bld) [Volume fraction] 40.3 % Normal 35-47 [facility] Comment on above: Performed By: #### Emmett BERGER, BMP, 85645-1, 12331-3 #### [facility] ([id number]) [address] [place] [address] 084[address] Hemoglobin (Bld) [Mass/Vol] 13.6 g/dL Normal 11.7-15.5 [facility] Comment on above: Performed By: #### Emmett BERGER, BMP, 92582-8, 20068-7 #### [facility] ([id number]) [address] [place] [address] 33592 Lymphocytes (Bld) [#/Vol] 2.0 10*3/uL Normal 1.0-3.5 [facility] Comment on above: Performed By: #### C AB, BMP, 98344-6, 15960-8 #### [facility] ([id number]) [address] [place] [address] 71551 Lymphocytes/100 WBC (Bld) 35.5 % Normal [facility] Comment on above: Performed By: #### C AB, BMP, 41131-8, 52197-5 #### [facility] ([id number]) [address] [place] [address] 88537 MCH (RBC) [Entitic mass] 28.8 pg Normal 27-34 [facility] Comment on above: Performed By: #### C AB, BMP, 24757-8, 43635-5 #### [facility] ([id number]) [address] [place] [address] 81820 MCHC (RBC) [Mass/Vol] 33.7 g/dL Normal 32-36 [facility] Comment on above: Performed By: #### C AB, RODRIGO, 67924-7, 32069-7 #### [facility] ([id number]) [address] [place] [address] 16315 MCV (RBC) [Entitic vol] 86 fL Normal 80-100 [facility] Comment on above: Performed By: #### C AB, BMP, 48032-5, 38427-0 #### [facility] ([id number]) [address] [place] [address] 24998 Monocytes (Bld) [#/Vol] 0.5 10*3/uL Normal 0-0.9 [facility] Comment on above: Performed By: #### C BCA, BMP, 27814-1, 04587-9 #### [facility] ([id number]) [address] [place] [address] 77481 Monocytes/100 WBC (Bld) 8.8 % Normal [facility] Comment on above: Performed By: #### C BCA, BMP, 73752-6, 53025-1 #### [facility] ([id number]) [address] [place] [address] 02574 Neutrophils/100 WBC (Bld) 50.5 % Normal [facility] Comment on above: Performed By: #### C BCA, BMP, 16779-1, 68245-1 #### [facility] ([id number]) [address] [place] [address] 21201 Platelet mean volume (Bld) [Entitic vol] 7.4 fL Normal 7-12 [facility] Comment on above: Performed By: #### C BCA, BMP, 80125-5, 61239-0 #### [facility] ([id number]) [address] [place] [address] 56091 Platelets (Bld) [#/Vol] 165 10*3/uL Normal 150-450 [facility] Comment on above: Performed By: #### C BCA, BMP, 12191-8, 75513-7 #### [facility] ([id number]) [address] [place] [address] 65119 RBC COUNT 4.71 X10E12/L Normal 3.80-5.20 [facility] Comment on above: Performed By: #### C BCA, BMP, 08101-1, 24377-6 #### [facility] ([id number]) [address] [place] [address] 23843 WBC (Bld) [#/Vol] 5.8 10*3/uL Normal 4.0-11.0 [facility] Comment on above: Performed By: #### C BCA, BMP, 57289-0, 04424-5 #### [facility] ([id number]) [address] [place] [address] 11704 Natriuretic peptide B [Mass/ Vol]on 06-21-2024 Natriuretic peptide B (Bld) [Mass/Vol] 52 pg/mL Normal <100.0 [facility] Comment on above: Performed By: #### C AB BMP, 95101-9, 26555-3 #### [facility] ([id number]) [address] [place] [address] 02543 Troponin I.cardiac High sens itivity method [Mass/Vol]on 06-21-2024 1 HOUR TROP I, HIGH SENSITIVITY 2 ng/L Normal <16 [facility] Comment on above: Performed By: #### 8 9579-7 #### [facility] ([id number]) [address] [place] [address] 66583 TROPONIN I, HIGH SENSITIVITY 2 ng/L Normal <16 [facility] Comment on above: Performed By: #### C AB, BMP, 18224-6, 67669-7 #### [facility] ([id number]) [address] [place] [address] 46503 ECG 12 Leadon 06-17-2024 Normal sinus rhythm with normal QTc interval [facility] Work Phone: Laboratory - Hematology and Cell countson 2024 HbA1c (Bld) [Mass fraction] 5.6 % [facility] Tradesy No Panel Informationon 06-16 [facility] [facility] abdomen pelvis wo/w conon 06-03-2024 CT abdomen pelvis wo/w con [facility] Main [address] [address] [address] Scan Report Signed Patient: Maritza Vicente MR#: [id number] 13 : 1940 Acct:[id number] Age/Sex: 83 / F ADM Date: 06/03/24 Loc: CT Room: Type: REG CLI Attending Dr: Marcia YSUUF Copies to: MADELIN Morales Ordering Provider: MADELIN Morales Date of Service: 06/03/24 CT/CT abdomen pelvis wo/w con: R10.9 CT ABDOMEN AND PELVIS WITH AND WITHOUT INTRAVENOUS CONTRAST: CLINICAL HISTORY: Urethral stricture. Recurrent UTIs. COMPARISON: CT abdomen and pelvis 08/23/2023 TECHNIQUE: Spiral images were obtained through the abdomen and pelvis before and after the administration of intravenous contrast. This CT exam was performed using one or more following dose reduction techniques: Automated exposure control, adjustment of the mA and/or kV according to patient size, or use of iterative reconstruction technique. FINDINGS: Lung Bases: [No acute findings.] Organs:Cystic changes involving the kidneys one of which appears peripherally calcified grossly unchanged from the prior study. Gallbladder has been removed. Portal vein pancreas and adrenal glands appear unremarkable.[Splenic and liver granulomas. Subcentimeter low-attenuation lesion involving the spleen, too small for accurate characterization but appears to diminish in size on the delayed imaging suspicious for an underlying hemangioma. Kidneys demonstrate no stone or hydronephrosis. No enhancing renal or collecting system mass. Abdominal aorta appears normal in caliber. GI: Stomach is grossly unremarkable. Small bowel appears nondilated. Left colon diverticulosis.[ Pelvis:[Urinary bladder is grossly unremarkable. Uterus has been removed. No adnexal mass.] Peritoneum/Retroperitoneum :No free air, free fluid or lymphadenopathy.[ Abd wall/Bones:Abdominal wall demonstrates no acute findings. Osseous structures demonstrate degenerative changes.[ CT/CT abdomen pelvis wo/w con IMPRESSION: No acute process is seen. Impression dictated by: Sergio Rivera Jr., D.O.06/03/2024 5:09 PM Dictation Location: [facility]15 Transcribed By: [facility] 06/03/241708 Dictated By: Sergio Rivera Jr, DO 06/03/241705 Signed By: 06/03/241708 Normal [facility] C Urineon 05-24-2024 Bacteria identified Cx Nom (U) Microbiology PROCEDURE: Urine Culture [R1] SOURCE: U CleanCatch BODY SITE: COLLECTED DATE/TIME: 05/22/2024 13:09 EDT RECEIVED DATE/TIME: 05/22/2024 17:44 EDT START DATE/TIME: 05/22/2024 17:44 EDT FREE TEXT SOURCE: RYAN LOBO, Haile DAVIS MD, Haile Garay FINAL REPORTS Final Report [] Verified Date/Time: 05/24/2024 08:39 EDT 3,000 cfu/ml Mixed skin contaminants Performing Locations R1: This test was performed at: [facility], [address] [place] [address], [id number] , [place], Normal [facility] Comment on above: Performed By: #### 2 [id number] #### [facility] [address] [place] [address] Ambulatory Visit Summaryon 0 05-22-2024 Ambulatory Visit Summary Ambulatory Visit Summary MARITZA VICENTE :1940 Visit Date:05/22/2024 Ambulatory Visit Instructions Your Diagnosis Dysuria History of recurrent UTI (urinary tract infection) Your Care Team Attending Physician - RYAN LOBO, Haile Garay Primary Care Physician - NONE, XXXX This Is Your Medications List busPIRone cholecalciferol (Vitamin D3) conjugated estrogens topical (Premarin Vaginal 0.625 mg/g cream with applicator) famotidine ferrous sulfate lisinopril magnesium amino acids chelate metformin (metformin 500 mg ER Tab) multivitamin with minerals (Centrum Silver) sertraline (sertraline 25 mg Tab) simvastatin Procedures Performed Dilation of urethra (05/12/2024), Cystourethroscopy with dilation of urethral stricture (10/30/2022), Cystourethroscopy with dilation of urethral stricture (02/16/2020), Cystourethroscopy with dilation of urethral stricture (07/01/2018), Dilation of urethra (07/26/2010), Appendectomy, Cholecystectomy, Colonoscopy, elbow surgery, Hysterectomy, neck surgery. Medications What How Much When Instructions Unchanged busPIRone By Mouth 2 times a day Unchanged cholecalciferol (Vitamin D3) Unchanged conjugated estrogens topical (Premarin Vaginal 0.625 mg/ g cream with applicator) 1 Gram Vaginal Saturday Unchanged famotidine Unchanged ferrous sulfate By Mouth Unchanged lisinopril By Mouth Every day Unchanged magnesium amino acids chelate By Mouth Unchanged metformin (metformin 500 mg ER Tab) By Mouth Every day Unchanged multivitamin with minerals (Centrum Silver) By Mouth Every day Unchanged sertraline (sertraline 25 mg Tab) By Mouth Every day Unchanged simvastatin By Mouth Allergies [place] (Weakness) Valium (Unknown Reaction) morphine (Unknown Reaction) Problems Ongoing - Any problem that you are currently receiving treatment for. Chronic cystitis Chronic neck pain Diabetes History of recurrent UTI (urinary tract infection) Hx of migraine headaches Hypertension Other urethral stricture, female Renal cyst Urgency of urination Urine frequency Historical - Any problem that you are no longer receiving treatment for. UTI (urinary tract infection) Patient Survey You may receive a survey via text or e-mail asking about your office visit. Please share your experience with us by completing your survey. We appreciate your feedback and thank you for choosing us for your care. [facility] Ambulatory Visit Summaryon 0 05-12-2024 Ambulatory Visit Summary Ambulatory Visit Summary MARITZA VICENTE :1940 Visit Date:05/12/2024 Ambulatory Visit Instructions Your Diagnosis Other urethral stricture, female History of recurrent UTI (urinary tract infection) Renal cyst Your Care Team Attending Physician - Haile DAVIS MD Primary Care Physician - NONE, XXXX This Is Your Medications List conjugated estrogens topical (Premarin Vaginal 0.625 mg/g cream with applicator) Contact prescribing physician if questions or concerns busPIRone cholecalciferol (Vitamin D3) famotidine ferrous sulfate lisinopril magnesium amino acids chelate metformin (metformin 500 mg ER Tab) multivitamin with minerals (Centrum Silver) sertraline (sertraline 25 mg Tab) simvastatin Procedures Performed Dilation of urethra (05/12/2024), Cystourethroscopy with dilation of urethral stricture (10/30/2022), Cystourethroscopy with dilation of urethral stricture (02/16/2020), Cystourethroscopy with dilation of urethral stricture (07/01/2018), Dilation of urethra (07/26/2010), Appendectomy, Cholecystectomy, Colonoscopy, elbow surgery, Hysterectomy, neck surgery. What to do next You Need to Schedule the Following Appointments Follow Up with RYAN LOBO, Haile Garay, URL When: Where: [facility] [address] [place] [address]- Medications What How Much When Instructions Unchanged conjugated estrogens topical (Premarin Vaginal 0.625 mg/ g cream with applicator) 1 Gram Vaginal Saturday Unchanged busPIRone By Mouth 2 times a [...] Contact prescribing physician if questions or concerns Medications and Immunizations Administered Given lidocaine Top 2% Gel w/Appl 6 mL, 6 mL, Topical. For: History of recurrent UTI (urinary tract infection), Renal cyst Allergies [place] (Weakness) Valium (Unknown Reaction) morphine (Unknown Reaction) Problems Ongoing - Any problem that you are currently receiving treatment for. Chronic cystitis Chronic neck pain Diabetes History of recurrent UTI (urinary tract infection) Hx of migraine headaches Hypertension Other urethral stricture, female Renal cyst Urgency of urination Urine frequency Historical - Any problem that you are no longer receiving treatment for. UTI (urinary tract infection) Patient Survey You may receive a survey via text or e-mail asking about your office visit. Please share your experience with us by completing your survey. We appreciate your feedback and thank you for choosing us for your care. Education Materials Urethral Stricture Urethral stricture is [...] urine flow, dribbling, or spraying of urine. Othe (more content not included)... [facility] Office/Clinic Noteon 05-12-2024 Urology Office/Clinic Note Urology Office/Clinic Note HPI Staff Here for UD only. Abx taken Last cysto/UD done 10/30/22. Uses Premarin cream. History of Present Illness Tests reviewed: reviewed I have reviewed the previous health record information and history for this patient from Dr. Davis. I have reviewed and verified the staff HPI to be accurate for this encounter. Review of Systems ROS - Provider Constitutional: denies weight loss, denies hot flashes. Eyes: denies eye problems. Gastrointestinal: denies nausea, denies vomiting. Cardiovascular: denies chest pain or angina. Integumentary: no dryness Musculoskeletal: denies musculoskeletal symptoms. ENMT: denies otolaryngeal symptoms. Respiratory: no shortness of breath. Heme/Lymph: denies easy bleeding tendency, denies easy bruising tendency. Psychiatric: no confusion, no anxiety. Genitourinary: See HPI. Physical Exam General Appearance: alert , no acute distress, well nourished, well developed female. Genitourinary: bladder nonpalpable, no flank pain. Procedure Operative Information Anesthesia Type: Local Procedure: Local Urethral Dilation Complications: None Surgical risks, benefits, details of the procedure have been explained to the patient. Full informed consent has been obtained. Intraoperative Information Prepped: Patient is brought back to the endoscopy suite. Patient is placed in modified dorso/lithotomy position. Patient prepped in the usual fashion with Betadine solution. 2% Xylocaine Jelly is placed per Urethra. The Urethra is: Tight The Urethra was dilated to: 20-30 [place] with sounds. Specimens Removed: None Postoperative Information Patient is discharged home. Follow up arranged. Assessment/Plan 1. Other urethral stricture, female (N35.82: Other urethral stricture, female) Pt has been having dilations since she was 36, both IO as well as formal urethrotomy under anesthesia. [1] Last UD 10/30/22. UA shows trace leuks today. Pt had IO UD today wo complications. Follow up 1 yr UD or sooner if needed. Pt understands and agrees with plan. 2. History of recurrent UTI (urinary tract infection) (Z87.440: Personal history of urinary (tract) infections) Using Premarin cream. 3. Renal cyst (N28.1: Cyst of kidney, acquired) CT AP wo con 09/02/22 - No hydro or stones. Intracortical hemorrhagic/proteinaceous cyst involving the lateral cortex of the left kidney measures 7 mm. Follow-up With When Contact Information RYAN LOBO, Haile Garay, [facility] [address], [place] [address]- Additional Instructions: 1 yr UD Patient Education Urethral Stricture I, Mackenzie Bennett, personally scribed for Dr. Davis on 05/12/2024 13:57:02. . Documentation recorded by the scribe, Mackenzie Bennett, accurately reflects the services(s) I performed and decisions made by me. Authenticated by Dr. Davis on 05/12/2024 13:58:50. Problem List/Past Medical History Ongoing Chronic cystitis Chronic neck pain Diabetes History of recurrent UTI (urinary tract infection) Hx of migraine headaches Hypertension Other urethral stricture, female Renal cyst Urgency of urination Urine frequency Historical UTI (urinary tract infection) Procedure/Surgical History Dilation of urethra (05/12/2024), Cystourethroscopy with dilation of urethral stricture (10/30/2022), Cystourethroscopy with dilation of urethral stricture (02/16/2020), Cystourethroscopy with dilation of urethral stricture (07/01/2018), Dilation of urethra (07/26/2010), Appendectomy, Cholecystectomy, Colonoscopy, elbow surgery, Hysterectomy, neck surgery. Medications busPIRone, Oral, BID Centrum Silver, Oral, Daily famotidine ferrous sulfate, Oral lisinopril, Oral, Daily magnesium amino acids chelate, Oral metformin 500 mg ER Tab, Oral, Daily Premarin Vaginal 0.625 mg/g cream with applicator, 1 gm, Vaginal, MonWedFri, 11 refills sertraline 25 mg Tab, Oral, Daily simvastatin, Oral Vitamin D3 Allergies [place] (Weakness) Valium (Unknown Reaction) morphine (Unknown Reaction) Social History Alcohol - No Risk, 02/16/2020 Tobacco Never (less than 100 in lifetime) Tobacco Use:. Never Smokeless Tobacco Use:., 05/12/2024 Family History Family history is unknown Immunizations Vaccine Date Status Comments zoster vaccine, inactivated 11/05/2023 Recorded pneumococcal 20-valent conjugate vaccine 08/26/2023 Recorded influenza virus vaccine, inactivated 08/26/2023 Recorded zoster vaccine, inactivated 07/03/2023 Recorded influenza virus vaccine, inactivated 07/10/2022 Recorded SARS-CoV-2 (COVID-19) [id number] 07/10/2022 Recorded SARSCoV2 mRNA(tbtitccts-hqfx-yfjigd ) vac 01/15/2022 Recorded influenza virus vaccine, inactivated 08/05/2021 Recorded 2022-10-30: 80 SARS-CoV-2 (COVID-19) mRNA BNT-162b2 vax 07/10/2021 Recorded 2022-10-30: 80 SARS-CoV-2 (COVID-19) Ad26 vaccine 06/2021 Recor (more content not included)... Normal [facility] Comment on above: Result Comment: Elec tronically Signed By: RYAN LOBO, Haile Garay\.br\Date and Time Signed: 05/12/24 13:58 EDT\.br\Electronically Co-Signed By: Mackenzie Bennett\.br\Date and Time Co-Signed: 05/12/24 13:57 EDT XR chest 2V*on 05-11-2024 XR chest 2V* [facility] Main [place] [id number] XRay Report Signed Patient: Maritza Vicente MR#: [id number] 13 : 1940 Acct:[id number] Age/Sex: 83 / F ADM Date: 05/10/24 Loc: ER Room: Type: [facility] ER Attending Dr: Copies to: Kieran Christianson MD Ordering Provider: Kieran Christianson MD Date of Service: 05/10/24 XR/XR chest 2V*: Chest Pain Chest 2 views CLINICAL HISTORY: Left-sided chest pain and dizziness weakness shortness of breath for 30 minutes COMPARISON: Chest 11/20/2023 FINDINGS: Heart normal in size. Lungs are clear. No free air. XR/XR chest 2V* IMPRESSION: NO ACUTE CARDIOPULMONARY ABNORMALITY. Impression dictated by: Sergio iRvera Jr., D.O.05/11/2024 8:12 AM Dictation Location: [employer]-12 Transcribed By: [facility] 05/11/24 08 Dictated By: Sergio Rivera Jr, DO 05/11/24 08 Signed By: 05/11/24 0812 Normal [facility] Automated basophil %Ordered By: Kieran Christianson on 05-10-2024 Basophils/100 WBC (Bld) 0.9 % Normal . [facility] Comment on above: Performed By: #### C BC, BMP, BNP, HS TROP, TSH3 #### [facility] [address] Automated basophil countOrde red By: Kieran Christianson on 05-10-2024 Basophils (Bld) [#/Vol] 0.1 10*3/uL Normal 0.0-0.2 [facility] Comment on above: Result Comment: PERF ORMED BY: [place] [address] PATHOLOGIST DAMAGE CUTTER TIM CHRISTIAN M.D. Performed By: #### C BC, BMP, BNP, HS TROP, TSH3 #### [facility] [address] [place] [address] Automated blood monocyte cou ntOrdered By: Kieran Christianson on 05-10-2024 Monocytes (Bld) [#/Vol] 0.3 10*3/uL Normal 0.0-0.8 [facility] Comment on above: Performed By: #### C BC, BMP, BNP, HS TROP, TSH3 #### [address] Automated eosinophil %Ordere d By: Kieran Sammy on 05-10-2024 Eosinophils/100 WBC (Bld) 0.9 % Normal . [facility] Comment on above: Performed By: #### C BC, BMP, BNP, HS TROP, TSH3 #### [address] Automated eosinophil countOr dered By: Kieran Sammy on 05-10-2024 Eosinophils (Bld) [#/Vol] 0.1 10*3/uL Normal 0.0-0.45 [facility] Comment on above: Performed By: #### C BC, BMP, BNP, HS TROP, TSH3 #### [address] Automated monocyte %Ordered By: Kieran Christianson on 05-10-2024 Monocytes/100 WBC (Bld) 5.7 % Normal . [facility] Comment on above: Performed By: #### C BC, BMP, BNP, HS TROP, TSH3 #### [address] Automated neutrophil %Ordere d By: Kieran Christianson on 05-10-2024 Neutrophils/100 WBC (Bld) 73.7 % Normal . [facility] Comment on above: Performed By: #### C BC, BMP, BNP, HS TROP, TSH3 #### [address] BNP ser/plasOrdered By: Og jordin Christianson on 05-10-2024 Natriuretic peptide B (Bld) [Mass/Vol] 89.0 pg/mL Normal 5-100 [facility] Comment on above: Result Comment: PERF ORMED BY: [place] [address] PATHOLOGIST DAMAGE CUTTER TIM CHRISTIAN M.D. Performed By: #### C BC, BMP, BNP, HS TROP, TSH3 #### [address] Bacteria [Presence] in Urine by AutomatedOrdered By: Kieran Christianson on 05-10-2024 Bacteria Auto Ql (U) None seen [HPF] None Seen [facility] Basic Metabolic Panelon 04-14 Creatinine Clr Calc Pharmacy 39.37 Normal [facility] Comment on above: Result Comment: PERF ORMED BY: [place] [address] PATHOLOGIST DAMAGE CUTTER TIM CHRISTIAN M.D. Performed By: #### C BC, BMP, BNP, HS TROP, TSH3 #### [address] GFR/1.73 sq M.predicted MDRD (S/P/Bld) [Vol rate/Area] mL/min/{1.73_m2} Normal [facility] Comment on above: Performed By: #### C BC, BMP, BNP, HS TROP, TSH3 #### [address] Bilirubin Test strip Ql (U)O rdered By: Kieran Christianson on 05-10-2024 Bilirubin Ql (U) Negative Negative [facility] Calcium [Mass/volume] in Ser um or PlasmaOrdered By: Kieran Christianson on 05-10-2024 Calcium [Mass/Vol] 10.0 mg/dL Normal 8.6-10.[address] [facility] Comment on above: Performed By: #### C BC, BMP, BNP, HS TROP, TSH3 #### [address] Capillary blood glucose luna urement by glucometer (mass/volume)Ordered By: PROVIDER TEMP on 05-10-2024 Glucose [Mass/Vol] 131 mg/dL Normal [facility] Comment on above: Random Glucose Refer ence Range is dependent on time and content of last meal. Glucose of more than 200 mg/dL in a nonstressed, ambulatory subject supports the diagnosis of Diabetes Mellitus. Result Comment: [place] om Glucose Reference Range is dependent on time and content of last meal. Glucose of more than 200 mg/dL in a nonstressed, ambulatory subject supports the diagnosis of Diabetes Mellitus. Performed By: #### G DULCE ####Point of Care testing, Carbon dioxide, total [Moles /volume] in Serum or PlasmaOrdered By: Kieran Christianson on 05-10-2024 CO2 [Moles/Vol] 27.9 mmol/L Normal 21.0-31.0 [facility] Comment on above: Performed By: #### C BC, BMP, BNP, HS TROP, TSH3 #### [address] Chloride [Moles/volume] in S maylin or PlasmaOrdered By: Kieran Christianson on 05-10-2024 Chloride [Moles/Vol] 96 mmol/L Low 98-107 [facility] Comment on above: Performed By: #### C BC, BMP, BNP, HS TROP, TSH3 #### [address] Color of Urine by AutoOrdere d By: Kieran Christianson on 05-10-2024 Color (U) Light-yellow Normal Yellow [facility] Comment on above: Order Comment: Name Collection Type:: Clean-Voided Midstream Performed By: #### A DDONUAPLUS ####[address] Complete Blood Count Auto Di ffon 05-10-2024 Mean Corpuscular HGB Conc 33.9 g/dL Normal 32.0-35.0 [facility] Comment on above: Performed By: #### C BC, BMP, BNP, HS TROP, TSH3 #### [place] [address] [place] Monocytes/100 WBC (Bld) 17.43 % Normal 0.00-20.00 [facility] Comment on above: Performed By: #### C BC, BMP, BNP, HS TROP, TSH3 #### [place] [address] [place] NRBC% 0.1 /100{WBC} Normal 0-0.5 [facility] Comment on above: Performed By: #### C BC, BMP, BNP, HS TROP, TSH3 #### [facility] [address] [place] [id number] [facility] Creatinine [Mass/volume] in Serum or PlasmaOrdered By: Kieran Christianson on 05-10-2024 Creatinine [Mass/Vol] 0.70 mg/dL Normal 0.60-1.20 [facility] Comment on above: Performed By: #### C BC, BMP, BNP, HS TROP, TSH3 #### [place] [id number] [place] Dipstick and Microscopicon 0 05-10-2024 Bacteria,Urine None Seen Normal None Seen [facility] Comment on above: Order Comment: Name Collection Type:: Clean-Voided Midstream Performed By: #### A DDONUAPLUS ####[place] [id number] [facility] Bilirubin,Urine Negative Normal Negative [facility] Comment on above: Order Comment: Name Collection Type:: Clean-Voided Midstream Performed By: #### A DDONUAPLUS ####[address] Glucose Ql (U) Normal Normal Normal [facility] Comment on above: Order Comment: Name Collection Type:: Clean-Voided Midstream Performed By: #### A DDONUAPLUS ####[place] [id number] [facility] Hyaline Casts,Urine None Normal 0-8 [facility] Comment on above: Order Comment: Name Collection Type:: Clean-Voided Midstream Performed By: #### A DDONUAPLUS ####[place] [id number] [facility] Mucus,Urine Rare Normal [facility] Comment on above: Order Comment: Name Collection Type:: Clean-Voided Midstream Result Comment: PERF ORMED BY: [place] [address] PATHOLOGIST DAMAGE CUTTER TIM CHRISTIAN M.D. Performed By: #### A DDONUAPLUS ####[place] [id number] [place] Nitrite,Urine Negative Normal Negative [facility] Comment on above: Order Comment: Name Collection Type:: Clean-Voided Midstream Performed By: #### A DDONUAPLUS ####[place] [id number] [facility] Occult Blood,Urine Negative Normal Negative [facility] Comment on above: Order Comment: Name Collection Type:: Clean-Voided Midstream Result Comment: PERF ORMED BY: [facility] [address] [place] [id number] PATHOLOGIST DAMAGE CUTTER TIM CHRISTIAN M.D. Performed By: #### A DDONUAPLUS ####[address] Protein,Urine Negative Normal Negative [facility] Comment on above: Order Comment: Name Collection Type:: Clean-Voided Midstream Performed By: #### A DDONUAPLUS ####[place] [id number] [facility] RBC,Urine 1-2 Normal 0-4 [facility] Comment on above: Order Comment: Name Collection Type:: Clean-Voided Midstream Performed By: #### A DDONUAPLUS ####[address] Specificy [place],Urine 1.018 Normal 1.001-1.03 0 [facility] Comment on above: Order Comment: Name Collection Type:: Clean-Voided Midstream Performed By: #### A DDONUAPLUS ####[place] [id number] [facility] Squamous Epithelial Cell,Urine 3-4 High 0-2 [facility] Comment on above: Order Comment: Name Collection Type:: Clean-Voided Midstream Performed By: #### A DDONUAPLUS ####[place] [id number] [facility] Urobilinogen,Urine Normal Normal Normal [facility] Comment on above: Order Comment: Name Collection Type:: Clean-Voided Midstream Performed By: #### A DDONUAPLUS ####[place] [id number] [address] WBC,Urine 1-2 Normal 0-4 [facility] Comment on above: Order Comment: Name Collection Type:: Clean-Voided Midstream Performed By: #### A DDONUAPLUS ####[facility] [id number] ECG 12 lead ECGon 05-10-2024 ECG 12 lead ECG [facility] Main [place] [address] [place] [address] Electrocardiograph Report Signed Patient: Maritza Vicente MR#: [id number] 13 : 1940 Acct:[id number] Age/Sex: 83 / F ADM Date: 05/10/24 Loc: ER Room: Type: [facility] ER Attending Dr: Ordering Provider: Kieran Christianson MD Date of Service: 05/10/24 ECG/ECG 12 lead ECG: Chest Pain Copies to: Test Reason : Blood Pressure : 169/72 mmHG Vent. Rate : 61 BPM Atrial Rate : 61 BPM P-R Int : 166 ms QRS Dur : 88 ms QT Int : 388 ms P-R-T Axes : 82 78 76 degrees QTcB Int : 390 ms Normal sinus rhythm Normal ECG When compared with ECG of 28-Feb-2024 16:22, No significant change was found Confirmed by KIERAN CHRISTIANSON MD ([id number]) on 05/11/2024 1:53:22 AM Referred By: Electronically Signed By: KIERAN CHRISTIANSON MD Transcribed By: MUS Signed By Kieran Christianson MD 04/14 07/07 0153 Normal [facility] Epithelial cells.squamous [# /area] in Urine sediment by Automated countOrdered By: Kieran Christianson on 05-10-2024 Epithelial cells.squamous Auto (Urine sed) [#/Area] 3-4 [HPF] High 0-2 [facility] Erythrocyte distribution wid th [Ratio] by Automated countOrdered By: Kieran Christianson on 05-10-2024 Erythrocyte distribution width (RBC) [Ratio] 13.4 % Normal 11.9-15.3 [facility] Comment on above: Performed By: #### C BC, BMP, BNP, HS TROP, TSH3 #### [facility] [address] Erythrocytes [#/area] in Uri ne sediment by Automated countOrdered By: Kieran Christianson on 05-10-2024 RBC Auto (Urine sed) [#/Area] 1-2 [HPF] 0-4 [facility] Erythrocytes [#/volume] in B lood by Automated countOrdered By: Kieran Christianson on 05-10-2024 RBC (Bld) [#/Vol] 4.86 10*6/uL Normal 3.60-5.00 [facility] Comment on above: Performed By: #### C BC, BMP, BNP, HS TROP, TSH3 #### [facility] [address] Glucose Poct Glucometerson 0 05-10-2024 Commemt1 Glu2: Cleaned Meter Normal [facility] Comment on above: Performed By: #### G LULS ####Point of Care testing, Commemt2 WILL NOTIFY DR/BERNARDO Normal [facility] Comment on above: Result Comment: PERF ORMED BY: [address] [place] [address] PATHOLOGIST DAMAGE CUTTER TIM CHRISTIAN M.D. Performed By: #### G LULS ####Point of Care testing, Glucose [Mass/volume] in Ser um or PlasmaOrdered By: Kieran Christianson on 05-10-2024 Glucose [Mass/Vol] 122 mg/dL High 70-[address] [facility] Comment on above: ADA recommended refe rence rangeRandom Glucose Reference Range is dependent on time and content of last meal. Glucose of more than 200 mg/dL in a nonstressed, ambulatory subject supports the diagnosis of Diabetes Mellitus. Result Comment: [place] om Glucose Reference Range is dependent on time and content of last meal. Glucose of more than 200 mg/dL in a nonstressed, ambulatory subject supports the diagnosis of Diabetes Mellitus. ADA recommended reference range Performed By: #### C BC, BMP, BNP, HS TROP, TSH3 #### [facility] [address] Glucose [Mass/volume] in Uri ne by Test stripOrdered By: Kieran Christianson on 05-10-2024 Glucose Test strip (U) [Mass/Vol] Normal mg/dL Normal [facility] Hematocrit [Volume Fraction] of Blood by Automated countOrdered By: Kieran Christianson on 05-10-2024 Hematocrit (Bld) [Volume fraction] 41.6 % Normal 34.0-46.4 [facility] Comment on above: Performed By: #### C BC, BMP, BNP, HS TROP, TSH3 #### [facility] [address] Hemoglobin Test strip Ql (U) Ordered By: Kieran Christianson on 05-10-2024 Hemoglobin Ql (U) Negative Negative [facility] Hemoglobin [Mass/volume] in BloodOrdered By: Kieran Christianson on 05-10-2024 Hemoglobin (Bld) [Mass/Vol] 14.1 g/dL Normal 11.8-15.4 [facility] Comment on above: Performed By: #### C BC, BMP, BNP, HS TROP, TSH3 #### [address] Hyaline casts [#/area] in Ur ine sediment by Automated countOrdered By: Kieran Christianson on 05-10-2024 Hyaline casts Auto (Urine sed) [#/Area] None [LPF] 0-8 [facility] Ketones [Presence] in Urine by Test stripOrdered By: Kieran Christianson on 05-10-2024 Ketones Ql (U) Negative Normal Negative [facility] Comment on above: Order Comment: Name Collection Type:: Clean-Voided Midstream Performed By: #### A DDONUAPLUS ####[address] Leukocyte esterase [Presence ] in Urine by Test stripOrdered By: Kieran Christianson on 05-10-2024 Leukocyte esterase Test strip Ql (U) 1+ High Negative [facility] Comment on above: Order Comment: Name Collection Type:: Clean-Voided Midstream Performed By: #### A DDONUAPLUS ####[place] [address] [place] Leukocytes [#/area] in Urine sediment by Automated countOrdered By: Kieran Christianson on 05-10-2024 WBC Auto (Urine sed) [#/Area] 1-2 [HPF] 0-4 [facility] Leukocytes [#/volume] correc ryanne for nucleated erythrocytes in Blood by Automated counOrdered By: Kieran Christianson on 05-10-2024 WBC corrected for nucl RBC Auto (Bld) [#/Vol] 6.1 10*3/uL 3.8-11.6 [facility] Leukocytes [#/volume] in Blo od by Automated countOrdered By: Kieran Christianson on 05-10-2024 WBC (Bld) [#/Vol] 6.1 10*3/uL Normal 3.8-11.[address] [facility] Comment on above: Performed By: #### C BC, BMP, BNP, HS TROP, TSH3 #### [facility] [address] [place] [address] [place] Lymphocytes [#/volume] in Bl ood by Automated countOrdered By: Kieran Christianson on 05-10-2024 Lymphocytes (Bld) [#/Vol] 1.1 10*3/uL Normal 1.00-4.8 [facility] Comment on above: Performed By: #### C BC, BMP, BNP, HS TROP, TSH3 #### [place] [address] [place] Lymphocytes/100 leukocytes i n Blood by Automated countOrdered By: Kieran Christianson on 05-10-2024 Lymphocytes/100 WBC (Bld) 18.8 % Normal . [facility] Comment on above: Performed By: #### C BC, BMP, BNP, HS TROP, TSH3 #### [facility] [address] [place] [address] [place] MCH [Entitic mass] by Automa ryanne countOrdered By: Kieran Christianson on 05-10-2024 MCH (RBC) [Entitic mass] 29.1 pg Normal 24.7-34.3 [facility] Comment on above: Performed By: #### C BC, BMP, BNP, HS TROP, TSH3 #### [facility] [address] [place] [address] [place] MCHC Auto (RBC) [Mass/Vol]Or dered By: Kieran Christianson on 05-10-2024 MCHC (RBC) [Mass/Vol] 33.9 g/dL 32.0-35.0 [facility] MCV [Entitic volume] by Auto mated countOrdered By: Kieran Christianson on 05-10-2024 MCV (RBC) [Entitic vol] 85.6 fL Normal 80-100 [facility] Comment on above: Performed By: #### C BC, BMP, BNP, HS TROP, TSH3 #### [facility] [address] Monocyte distribution width [Entitic volume] in Blood by AutomatedOrdered By: Kieran Christianson on 05-10-2024 Monocyte distribution width Auto (Bld) [Entitic vol] 17.43 % 0.00-20.00 [facility] Mucus [Presence] in Urine by AutomatedOrdered By: Kieran Christianson on 05-10-2024 Mucus Auto Ql (U) Rare [LPF] [facility] Neutrophils [#/volume] in Bl ood by Automated countOrdered By: Kieran Christianson on 05-10-2024 Neutrophils (Bld) [#/Vol] 4.5 10*3/uL Normal 1.8-7.7 [facility] Comment on above: Performed By: #### C BC, BMP, BNP, HS TROP, TSH3 #### [facility] [address] [place] [address] Nitrite Test strip Ql (U)Ord ered By: Kieran Christianson on 05-10-2024 Nitrite Ql (U) Negative Negative [facility] No Panel InformationOrdered By: Kieran Christianson on 05-10-2024 Estimated GFR (CKD-EPI) > 60.0 mL/Min [facility] Creatinine Clearance (Chem 39.37 [facility] No Panel InformationOrdered By: PROVIDER TEMP on 05-10-2024 Bedside Glucose #[address]/rn [facility] Bedside Glucose Comment Glu2: cleaned meter [facility] Nucleated erythrocytes [Pres ence] in Blood by Automated countOrdered By: Kieran Christianson on 05-10-2024 Nucleated RBC Auto Ql (Bld) 0.1 /100{WBC} 0-0.5 [facility] Platelet mean volume [Entiti c volume] in Blood by Automated countOrdered By: Kieran Christianson on 05-10-2024 Platelet mean volume (Bld) [Entitic vol] 7.8 fL Normal 6.3-10.7 [facility] Comment on above: Performed By: #### C BC, BMP, BNP, HS TROP, TSH3 #### [facility] [address] [place] [address] [place] Platelets [#/volume] in Bloo d by Automated countOrdered By: Kieran Christianson on 05-10-2024 Platelets (Bld) [#/Vol] 166 10*3/uL Normal 150-450 [facility] Comment on above: Performed By: #### C BC, BMP, BNP, HS TROP, TSH3 #### [place] [address] [place] Potassium [Moles/volume] in Serum or PlasmaOrdered By: Kieran Christianson on 05-10-2024 Potassium [Moles/Vol] 4.3 mmol/L Normal 3.5-5.1 [facility] Comment on above: Performed By: #### C BC, BMP, BNP, HS TROP, TSH3 #### [address] Protein Test strip (U) [Mass /Vol]Ordered By: Kieran Christianson on 05-10-2024 Protein (U) [Mass/Vol] Negative Negative [facility] Serum or plasma anion gap de terminationOrdered By: Kieran Christianson on 05-10-2024 Anion gap [Moles/Vol] 10.4 mmol/L Normal 6.0-15.0 [facility] Comment on above: Performed By: #### C BC, BMP, BNP, HS TROP, TSH3 #### [place] [address] [place] Sodium [Moles/volume] in Ser um or PlasmaOrdered By: Kieran Christianson on 05-10-2024 Sodium [Moles/Vol] 130 mmol/L Low 136-[address] [facility] Comment on above: Performed By: #### C BC, BMP, BNP, HS TROP, TSH3 #### [address] Specific gravity Test strip (U) [Rel density]Ordered By: Kieran Christianson on 05-10-2024 Specific gravity (U) [Rel density] 1.018 1.001-1.03 0 [facility] Thyrotropin [Units/volume] i n Serum or PlasmaOrdered By: Kieran Christianson on 05-10-2024 TSH Qn 3.04 m[IU]/L Normal 0.45-5.33 [facility] Comment on above: Result Comment: PERF ORMED BY: [place] [address] PATHOLOGIST DAMAGE CUTTER TIM CHRISTIAN M.D. Performed By: #### C BC, BMP, BNP, HS TROP, TSH3 #### [address] Troponin I High Sensitivityo n 05-10-2024 Troponin I High Sensitivity 2.4 pg/mL Normal 0.0-15.0 [facility] Comment on above: Result Comment: PERF ORMED BY: [place] [address] PATHOLOGIST DAMAGE CUTTER TIM CHRISTIAN M.D. Performed By: #### C BC, BMP, BNP, HS TROP, TSH3 #### [address] Troponin I.cardiac [Mass/vol ume] in Serum or Plasma by Detection limit <= 0.01 ng/Ordered By: Kieran Christianson on 05-10-2024 Troponin I.cardiac DL <= 0.01 ng/mL [Mass/Vol] 2.4 pg/mL 0.0-15.0 [facility] Urea nitrogen [Mass/volume] in Serum or PlasmaOrdered By: Kieran Christianson on 05-10-2024 Urea nitrogen [Mass/Vol] 15 mg/dL Normal 7-25 [facility] Comment on above: Performed By: #### C BC, BMP, BNP, HS TROP, TSH3 #### [address] Urine appearanceOrdered By: Kieran Christianson on 05-10-2024 Appearance (U) Clear Normal Clear [facility] Comment on above: Order Comment: Name Collection Type:: Clean-Voided Midstream Performed By: #### A DDONUAPLUS ####[place] [address] [place] [address] [facility] Urobilinogen Test strip (U) [Mass/Vol]Ordered By: Kieran Christianson on 05-10-2024 Urobilinogen (U) [Mass/Vol] Normal mg/dL Normal [facility] pH of Urine by Test stripOrd ered By: Kieran Christianson on 05-10-2024 pH (U) 5.5 [pH] Normal 5.0-9.0 [facility] Comment on above: Order Comment: Name Collection Type:: Clean-Voided Midstream Performed By: #### A DDONUAPLUS ####[place] [address] [place] [id number] [facility] Activated partial thrombopla stin time (aPTT) in platelet poor plasma by coagulation aOrdered By: PROVIDER TEMP on 02-28-2024 aPTT Coag (PPP) [Time] 34.8 s 25.1-36.5 [facility] Comment on above: A hematocrit value g reater than 55% may lead to inaccurate results in coagulation testing. Patients having hematocrit values >55% require a special collection tube for coagulation studies. Please contact the laboratory at [phone] for redraw instructions. Automated basophil %Ordered By: PROVIDER TEMP on 02-28-2024 Basophils/100 WBC (Bld) 1.0 % Normal . [facility] Comment on above: Performed By: #### C BC, BMP, BNP, CK, HS TROP, PT, PTT ####[facility] [place] [id number] [facility] Automated basophil countOrde red By: PROVIDER TEMP on 02-28-2024 Basophils (Bld) [#/Vol] 0.1 10*3/uL Normal 0.0-0.2 [facility] Comment on above: Result Comment: PERF ORMED BY: [facility] [address] [place] [address] PATHOLOGIST DAMAGE CUTTER TIM CHRISTIAN M.D. Performed By: #### C BC, BMP, BNP, CK, HS TROP, PT, PTT ####[address] Automated blood monocyte cou ntOrdered By: PROVIDER TEMP on 02-28-2024 Monocytes (Bld) [#/Vol] 0.6 10*3/uL Normal 0.0-0.8 [facility] Comment on above: Performed By: #### C BC, BMP, BNP, CK, HS TROP, PT, PTT ####[address] Automated eosinophil %Ordere d By: PROVIDER TEMP on 02-28-2024 Eosinophils/100 WBC (Bld) 1.6 % Normal . [facility] Comment on above: Performed By: #### C BC, BMP, BNP, CK, HS TROP, PT, PTT ####[address] Automated eosinophil countOr dered By: PROVIDER TEMP on 02-28-2024 Eosinophils (Bld) [#/Vol] 0.1 10*3/uL Normal 0.0-0.45 [facility] Comment on above: Performed By: #### C BC, BMP, BNP, CK, HS TROP, PT, PTT ####[address] Automated monocyte %Ordered By: PROVIDER TEMP on 02-28-2024 Monocytes/100 WBC (Bld) 9.3 % Normal . [facility] Comment on above: Performed By: #### C BC, BMP, BNP, CK, HS TROP, PT, PTT ####[address] Automated neutrophil %Ordere d By: PROVIDER TEMP on 02-28-2024 Neutrophils/100 WBC (Bld) 57.8 % Normal . [facility] Comment on above: Performed By: #### C BC, BMP, BNP, CK, HS TROP, PT, PTT ####[address] BNP ser/plasOrdered By: PROV IDER TEMP on 02-28-2024 Natriuretic peptide B (Bld) [Mass/Vol] 115.0 pg/mL High 5-100 [facility] Comment on above: Result Comment: PERF ORMED BY: [place] [id number] PATHOLOGIST DAMAGE CUTTER TIM CHRISTIAN M.D. Performed By: #### C BC, BMP, BNP, CK, HS TROP, PT, PTT ####[place] [id number] [facility] Basic Metabolic Panelon 02-11 Creatinine Clr Calc Pharmacy 38.41 Normal [facility] Comment on above: Result Comment: PERF ORMED BY: [place] [id number] PATHOLOGIST DAMAGE CUTTER TIM CHRISTIAN M.D. Performed By: #### C BC, BMP, BNP, CK, HS TROP, PT, PTT ####[place] [id number] [facility] GFR/1.73 sq M.predicted MDRD (S/P/Bld) [Vol rate/Area] mL/min/{1.73_m2} Normal [facility] Comment on above: Performed By: #### C BC, BMP, BNP, CK, HS TROP, PT, PTT ####[place] [id number] [facility] Calcium [Mass/volume] in Ser um or PlasmaOrdered By: PROVIDER TEMP on 02-28-2024 Calcium [Mass/Vol] 10.1 mg/dL Normal 8.6-10.[address] [facility] Comment on above: Performed By: #### C BC, BMP, BNP, CK, HS TROP, PT, PTT ####[place] [id number] [facility] Carbon dioxide, total [Moles /volume] in Serum or PlasmaOrdered By: PROVIDER TEMP on 02-28-2024 CO2 [Moles/Vol] 31.0 mmol/L Normal 21.0-31.0 [facility] Comment on above: Performed By: #### C BC, BMP, BNP, CK, HS TROP, PT, PTT ####[address] Chloride [Moles/volume] in S maylin or PlasmaOrdered By: PROVIDER TEMP on 02-28-2024 Chloride [Moles/Vol] 98 mmol/L Normal 98-107 [facility] Comment on above: Performed By: #### C BC, BMP, BNP, CK, HS TROP, PT, PTT ####[address] Complete Blood Count Auto Di ffon 02-28-2024 Mean Corpuscular HGB Conc 34.0 g/dL Normal 32.0-35.0 [facility] Comment on above: Performed By: #### C BC, BMP, BNP, CK, HS TROP, PT, PTT ####[address] Monocytes/100 WBC (Bld) 15.20 % Normal 0.00-20.00 [facility] Comment on above: Performed By: #### C BC, BMP, BNP, CK, HS TROP, PT, PTT ####[address] NRBC% 0.1 /100{WBC} Normal 0-0.5 [facility] Comment on above: Performed By: #### C BC, BMP, BNP, CK, HS TROP, PT, PTT ####[address] Creatine kinase [Enzymatic a ctivity/volume] in Serum or PlasmaOrdered By: PROVIDER TEMP on 02-28-2024 CK [Catalytic activity/Vol] 33 U/L Normal 30-223 [facility] Comment on above: Performed By: #### C BC, BMP, BNP, CK, HS TROP, PT, PTT ####[address] Creatinine [Mass/volume] in Serum or PlasmaOrdered By: PROVIDER TEMP on 02-28-2024 Creatinine [Mass/Vol] 0.82 mg/dL Normal 0.60-1.20 [facility] Comment on above: Performed By: #### C BC, BMP, BNP, CK, HS TROP, PT, PTT ####[facility] ECG 12 lead ECGon 02-28-2024 ECG 12 lead ECG [facility] [address] [place] [address] [place] [address] Electrocardiograph Report Signed Patient: Maritza Vicente MR#: [id number] [birth year] : 1940 Acct:[id number] Age/Sex: 83 / F ADM Date: 02/28/24 Loc: ER Room: Type: [facility] ER Attending Dr: Ordering Provider: Haile Bruner DO Date of Service: 02/28/24 ECG/ECG 12 lead ECG: Chest Pain Copies to: Test Reason : Blood Pressure : 125/059 mmHG Vent. Rate : 059 BPM Atrial Rate : 059 BPM P-R Int : 188 ms QRS Dur : 080 ms QT Int : 390 ms P-R-T Axes : 057 065 060 degrees QTc Int : 386 ms Sinus bradycardia Otherwise normal ECG When compared with ECG of 20-NOV-2023 23:03, No significant change was found Confirmed by Tal Sams ([id number]) on 03/01/2024 8:17:07 PM Referred By: Electronically Signed By:Tal Sams Transcribed By: MUS Signed By Tal Sams MD 03/01/242016 Normal [facility] Erythrocyte distribution wid th [Ratio] by Automated countOrdered By: PROVIDER TEMP on 02-28-2024 Erythrocyte distribution width (RBC) [Ratio] 13.4 % Normal 11.9-15.3 [facility] Comment on above: Performed By: #### C BC, BMP, BNP, CK, HS TROP, PT, PTT ####[facility] [place] [id number] [facility] Erythrocytes [#/volume] in B lood by Automated countOrdered By: PROVIDER TEMP on 02-28-2024 RBC (Bld) [#/Vol] 4.84 10*6/uL Normal 3.60-5.00 [facility] Comment on above: Performed By: #### C BC, BMP, BNP, CK, HS TROP, PT, PTT ####[place] [address] [place] [id number] [facility] Glucose [Mass/volume] in Ser um or PlasmaOrdered By: PROVIDER TEMP on 02-28-2024 Glucose [Mass/Vol] 110 mg/dL High 70-[address] [facility] Comment on above: ADA recommended refe rence rangeRandom Glucose Reference Range is dependent on time and content of last meal. Glucose of more than 200 mg/dL in a nonstressed, ambulatory subject supports the diagnosis of Diabetes Mellitus. Result Comment: [place] om Glucose Reference Range is dependent on time and content of last meal. Glucose of more than 200 mg/dL in a nonstressed, ambulatory subject supports the diagnosis of Diabetes Mellitus. ADA recommended reference range Performed By: #### C BC, BMP, BNP, CK, HS TROP, PT, PTT ####[place] [address] [place] [id number] [facility] Hematocrit [Volume Fraction] of Blood by Automated countOrdered By: PROVIDER TEMP on 02-28-2024 Hematocrit (Bld) [Volume fraction] 41.6 % Normal 34.0-46.4 [facility] Comment on above: Performed By: #### C BC, BMP, BNP, CK, HS TROP, PT, PTT ####[place] [address] [place] [id number] [facility] Hemoglobin [Mass/volume] in BloodOrdered By: PROVIDER TEMP on 02-28-2024 Hemoglobin (Bld) [Mass/Vol] 14.2 g/dL Normal 11.8-15.4 [facility] Comment on above: Performed By: #### C BC, BMP, BNP, CK, HS TROP, PT, PTT ####[place] [id number] [facility] INR in Platelet poor plasma by Coagulation assayOrdered By: PROVIDER TEMP on 02-28-2024 INR Coag (PPP) [Relative time] 1.0 {INR} Normal [facility] Comment on above: INR Therapeutic Rang e A) Pre- and Peroperative OAT started two weeks before surgery. NOT HIP SURGERY: 1.5 - 2.5 HIP SURGERY: 2 - 3B) Primary and secondary prevention of venous THROMBOSIS: 2 - 3C) Active venous thrombosis, pulmonary embolismand prevention of recurrent venous thrombosis: 2 - 3D) Prevention of arterial thromboembolismincluding patients with mechanical heart valves: 3 - 4.5 Result Comment: INR Therapeutic Range A) Pre- [...] 3 - 4.5 Performed By: #### C BC, BMP, BNP, CK, HS TROP, PT, PTT ####[facility] Leukocytes [#/volume] correc ryanne for nucleated erythrocytes in Blood by Automated counOrdered By: PROVIDER TEMP on 02-28-2024 WBC corrected for nucl RBC Auto (Bld) [#/Vol] 6.5 10*3/uL 3.8-11.6 [facility] Leukocytes [#/volume] in Blo od by Automated countOrdered By: PROVIDER TEMP on 02-28-2024 WBC (Bld) [#/Vol] 6.5 10*3/uL Normal 3.8-11.[address] [facility] Comment on above: Performed By: #### C BC, BMP, BNP, CK, HS TROP, PT, PTT ####[place] [address] Lymphocytes [#/volume] in Bl ood by Automated countOrdered By: PROVIDER TEMP on 02-28-2024 Lymphocytes (Bld) [#/Vol] 2.0 10*3/uL Normal 1.00-4.8 [facility] Comment on above: Performed By: #### C BC, BMP, BNP, CK, HS TROP, PT, PTT ####[place] [id number] [facility] Lymphocytes/100 leukocytes i n Blood by Automated countOrdered By: PROVIDER TEMP on 02-28-2024 Lymphocytes/100 WBC (Bld) 30.3 % Normal . [facility] Comment on above: Performed By: #### C BC, BMP, BNP, CK, HS TROP, PT, PTT ####[place] [address] MCH [Entitic mass] by Automa ryanne countOrdered By: PROVIDER TEMP on 02-28-2024 MCH (RBC) [Entitic mass] 29.2 pg Normal 24.7-34.3 [facility] Comment on above: Performed By: #### C BC, BMP, BNP, CK, HS TROP, PT, PTT ####[address] MCHC Auto (RBC) [Mass/Vol]Or dered By: PROVIDER TEMP on 02-28-2024 MCHC (RBC) [Mass/Vol] 34.0 g/dL 32.0-35.0 [facility] MCV [Entitic volume] by Auto mated countOrdered By: PROVIDER TEMP on 02-28-2024 MCV (RBC) [Entitic vol] 85.9 fL Normal 80-100 [facility] Comment on above: Performed By: #### C BC, BMP, BNP, CK, HS TROP, PT, PTT ####[address] Monocyte distribution width [Entitic volume] in Blood by AutomatedOrdered By: PROVIDER TEMP on 02-28-2024 Monocyte distribution width Auto (Bld) [Entitic vol] 15.20 % 0.00-20.00 [facility] Neutrophils [#/volume] in Bl ood by Automated countOrdered By: PROVIDER TEMP on 02-28-2024 Neutrophils (Bld) [#/Vol] 3.8 10*3/uL Normal 1.8-7.7 [facility] Comment on above: Performed By: #### C BC, BMP, BNP, CK, HS TROP, PT, PTT ####[address] No Panel InformationOrdered By: PROVIDER TEMP on 02-28-2024 Estimated GFR (CKD-EPI) > 60.0 mL/Min [facility] Creatinine Clearance (Chem 38.41 [facility] Nucleated erythrocytes [Pres ence] in Blood by Automated countOrdered By: PROVIDER TEMP on 02-28-2024 Nucleated RBC Auto Ql (Bld) 0.1 /100{WBC} 0-0.5 [facility] Partial Thromboplastin Timeo n 02-28-2024 aPTT Coag (Bld) [Time] 34.8 s Normal 25.1-36.5 [facility] Comment on above: Result Comment: A he matocrit value greater than 55% may lead to inaccurate results in coagulation testing. Patients having hematocrit values >55% require a special collection tube for coagulation studies. Please contact the laboratory at [phone] for redraw instructions. PERFORMED BY: [facility] [place] [address] PATHOLOGIST DAMAGE CUTTER TIM CHRISTIAN M.D. Performed By: #### C BC, BMP, BNP, CK, HS TROP, PT, PTT ####[address] [address] [facility] Platelet mean volume [Entiti c volume] in Blood by Automated countOrdered By: PROVIDER TEMP on 02-28-2024 Platelet mean volume (Bld) [Entitic vol] 7.5 fL Normal 6.3-10.7 [facility] Comment on above: Performed By: #### C BC, BMP, BNP, CK, HS TROP, PT, PTT ####[address] [address] [facility] Platelets [#/volume] in Bloo d by Automated countOrdered By: PROVIDER TEMP on 02-28-2024 Platelets (Bld) [#/Vol] 186 10*3/uL Normal 150-450 [facility] Comment on above: Performed By: #### C BC, BMP, BNP, CK, HS TROP, PT, PTT ####[address] [address] [facility] Potassium [Moles/volume] in Serum or PlasmaOrdered By: PROVIDER TEMP on 02-28-2024 Potassium [Moles/Vol] 4.5 mmol/L Normal 3.5-5.1 [facility] Comment on above: Performed By: #### C BC, BMP, BNP, CK, HS TROP, PT, PTT ####[place] [id number] [place] [id number] [facility] Prothrombin time (PT)Ordered By: PROVIDER TEMP on 02-28-2024 PT Coag (PPP) [Time] 11.8 s Normal 9.0-12.9 [facility] Comment on above: A hematocrit value g reater than 55% may lead to inaccurate results in coagulation testing. Patients having hematocrit values >55% require a special collection tube for coagulation studies. Please contact the laboratory at [phone] for redraw instructions. Result Comment: A he matocrit value greater than 55% may lead to inaccurate results in coagulation testing. Patients having hematocrit values >55% require a special collection tube for coagulation studies. Please contact the laboratory at [phone] for redraw instructions. Performed By: #### C BC, BMP, BNP, CK, HS TROP, PT, PTT ####[place] [id number] [facility] Serum or plasma anion gap de terminationOrdered By: PROVIDER TEMP on 02-28-2024 Anion gap [Moles/Vol] 9.5 mmol/L Normal 6.0-15.0 [facility] Comment on above: Performed By: #### C BC, BMP, BNP, CK, HS TROP, PT, PTT ####[place] [id number] [facility] Sodium [Moles/volume] in Ser um or PlasmaOrdered By: PROVIDER TEMP on 02-28-2024 Sodium [Moles/Vol] 134 mmol/L Low 136-[address] [facility] Comment on above: Performed By: #### C BC, BMP, BNP, CK, HS TROP, PT, PTT ####[place] [id number] [facility] Troponin I High Sensitivityo n 02-28-2024 Troponin I High Sensitivity 3.6 pg/mL Normal 0.0-15.0 [facility] Comment on above: Result Comment: PERF ORMED BY: [facility] [address] [place] [id number] PATHOLOGIST DAMAGE CUTTER TIM CHRISTIAN M.D. Performed By: #### C BC, BMP, BNP, CK, HS TROP, PT, PTT ####[facility] [place] [id number] [facility] Troponin I.cardiac [Mass/vol ume] in Serum or Plasma by Detection limit <= 0.01 ng/Ordered By: PROVIDER TEMP on 02-28-2024 Troponin I.cardiac DL <= 0.01 ng/mL [Mass/Vol] 3.6 pg/mL 0.0-15.0 [facility] Urea nitrogen [Mass/volume] in Serum or PlasmaOrdered By: PROVIDER TEMP on 02-28-2024 Urea nitrogen [Mass/Vol] 13 mg/dL Normal 7-25 [facility] Comment on above: Performed By: #### C BC, BMP, BNP, CK, HS TROP, PT, PTT ####[facility] [place] [id number] [facility] Basophils Auto (Bld) [#/Vol] Ordered By: Kieran Christianson on 11-20-2023 Basophils (Bld) [#/Vol] 0.1 10*3/uL 0.0-0.2 [facility] Basophils/100 WBC Auto (Bld) Ordered By: Kieran Christianson on 11-20-2023 Basophils/100 WBC (Bld) 1.5 % . [facility] Calcium [Mass/volume] in Ser um or PlasmaOrdered By: Kieran Christianson on 11-20-2023 Calcium [Mass/Vol] 9.8 mg/dL 8.6-10.[address] [facility] Carbon dioxide, total [Moles /volume] in Serum or PlasmaOrdered By: Kieran Christianson on 11-20-2023 CO2 [Moles/Vol] 28.7 mmol/L 21.0-31.0 [facility] Chloride [Moles/volume] in S maylin or PlasmaOrdered By: Kieran Christianson on 11-20-2023 Chloride [Moles/Vol] 98 mmol/L 98-107 [facility] Creatine kinase [Enzymatic a ctivity/volume] in Serum or PlasmaOrdered By: Kieran Christianson on 11-20-2023 CK [Catalytic activity/Vol] 35 U/L 30-223 [facility] Creatinine [Mass/volume] in Serum or PlasmaOrdered By: Kieran Christianson on 11-20-2023 Creatinine [Mass/Vol] 0.66 mg/dL 0.60-1.20 [facility] Eosinophils Auto (Bld) [#/Vo l]Ordered By: Kieran Christianson on 11-20-2023 Eosinophils (Bld) [#/Vol] 0.2 10*3/uL 0.0-0.45 [facility] Eosinophils/100 WBC Auto (Bl d)Ordered By: Kieran Christianson on 11-20-2023 Eosinophils/100 WBC (Bld) 2.9 % . [facility] Erythrocyte distribution wid th Auto (RBC) [Ratio]Ordered By: Kieran Christianson on 11-20-2023 Erythrocyte distribution width (RBC) [Ratio] 13.1 % 11.9-15.3 [facility] Glucose [Mass/volume] in Ser um or PlasmaOrdered By: Kieran Christianson on 11-20-2023 Glucose [Mass/Vol] 103 mg/dL 70-[address] [facility] Comment on above: ADA recommended refe rence rangeRandom Glucose Reference Range is dependent on time and content of last meal. Glucose of more than 200 mg/dL in a nonstressed, ambulatory subject supports the diagnosis of Diabetes Mellitus. Hematocrit Auto (Bld) [Volum e fraction]Ordered By: Kieran Christianson on 11-20-2023 Hematocrit (Bld) [Volume fraction] 36.3 % 34.0-46.4 [facility] Hemoglobin [Mass/volume] in BloodOrdered By: Kieran Christianson on 11-20-2023 Hemoglobin (Bld) [Mass/Vol] 12.3 g/dL 11.8-15.4 [facility] Leukocytes [#/volume] correc ryanne for nucleated erythrocytes in Blood by Automated counOrdered By: Kieran Christianson on 11-20-2023 WBC corrected for nucl RBC Auto (Bld) [#/Vol] 7.1 10*3/uL 3.8-11.6 [facility] Lymphocytes Auto (Bld) [#/Vo l]Ordered By: Kieran Christianson on 11-20-2023 Lymphocytes (Bld) [#/Vol] 1.8 10*3/uL 1.00-4.8 [facility] Lymphocytes/100 WBC Auto (Bl d)Ordered By: Kieran Christianson on 11-20-2023 Lymphocytes/100 WBC (Bld) 26.1 % . [facility] MCH Auto (RBC) [Entitic mass ]Ordered By: Kieran Christianson on 11-20-2023 MCH (RBC) [Entitic mass] 29.0 pg 24.7-34.3 [facility] MCHC Auto (RBC) [Mass/Vol]Or dered By: Kieran Christianson on 11-20-2023 MCHC (RBC) [Mass/Vol] 33.8 g/dL 32.0-35.0 [facility] MCV Auto (RBC) [Entitic vol] Ordered By: Kieran Christianson on 11-20-2023 MCV (RBC) [Entitic vol] 85.8 fL 80-100 [facility] Monocyte distribution width [Entitic volume] in Blood by AutomatedOrdered By: Kieran Christianson on 11-20-2023 Monocyte distribution width Auto (Bld) [Entitic vol] 15.56 % 0.00-20.00 [facility] Monocytes Auto (Bld) [#/Vol] Ordered By: Kieran Christianson on 11-20-2023 Monocytes (Bld) [#/Vol] 0.7 10*3/uL 0.0-0.8 [facility] Monocytes/100 WBC Auto (Bld) Ordered By: Kieran Christianson on 11-20-2023 Monocytes/100 WBC (Bld) 9.4 % . [facility] Neutrophils Auto (Bld) [#/Vo l]Ordered By: Kieran Christianson on 11-20-2023 Neutrophils (Bld) [#/Vol] 4.2 10*3/uL 1.8-7.7 [facility] Neutrophils/100 WBC Auto (Bl d)Ordered By: Kieran Christianson on 11-20-2023 Neutrophils/100 WBC (Bld) 60.1 % . [facility] No Panel InformationOrdered By: Kieran Christianson on 11-20-2023 Estimated GFR (CKD-EPI) > 60.0 mL/Min [facility] Creatinine Clearance (Chem 39.99 [facility] Nucleated erythrocytes [Pres ence] in Blood by Automated countOrdered By: Kieran Christianson on 11-20-2023 Nucleated RBC Auto Ql (Bld) 0.1 /100{WBC} 0-0.5 [facility] Platelet mean volume Auto (B ld) [Entitic vol]Ordered By: Kieran Christianson on 11-20-2023 Platelet mean volume (Bld) [Entitic vol] 7.6 fL 6.3-10.7 [facility] Platelets Auto (Bld) [#/Vol] Ordered By: Kieran Christianson on 11-20-2023 Platelets (Bld) [#/Vol] 182 10*3/uL 150-450 [facility] Potassium [Moles/volume] in Serum or PlasmaOrdered By: Kieran Christianson on 11-20-2023 Potassium [Moles/Vol] 4.2 mmol/L 3.5-5.1 [facility] RBC Auto (Bld) [#/Vol]Ordere d By: Kieran Christianson on 11-20-2023 RBC (Bld) [#/Vol] 4.23 10*6/uL 3.60-5.00 [facility] Serum or plasma anion gap de terminationOrdered By: Kieran Christianson on 11-20-2023 Anion gap [Moles/Vol] 9.5 mmol/L 6.0-15.0 [facility] Sodium [Moles/volume] in Ser um or PlasmaOrdered By: Kieran Christianson on 11-20-2023 Sodium [Moles/Vol] 132 mmol/L 136-[address] [facility] Troponin I.cardiac [Mass/vol ume] in Serum or Plasma by Detection limit <= 0.01 ng/Ordered By: Kieran Christianson on 11-20-2023 Troponin I.cardiac DL <= 0.01 ng/mL [Mass/Vol] 2.5 pg/mL 0.0-15.0 [facility] Urea nitrogen [Mass/volume] in Serum or PlasmaOrdered By: Kieran Christianson on 11-20-2023 Urea nitrogen [Mass/Vol] 19 mg/dL 7-25 [facility] WBC Auto (Bld) [#/Vol]Ordere d By: Kieran Christianson on 11-20-2023 WBC (Bld) [#/Vol] 7.1 10*3/uL 3.8-11.[address] [facility] Activated partial thrombopla stin time (aPTT) in platelet poor plasma by coagulation aOrdered By: Ricki Sam on 08-23-2023 aPTT Coag (PPP) [Time] 34.9 s 25.1-36.5 [facility] Comment on above: A hematocrit value g reater than 55% may lead to inaccurate results in coagulation testing. Patients having hematocrit values >55% require a special collection tube for coagulation studies. Please contact the laboratory at [phone] for redraw instructions. Alanine aminotransferase [En zymatic activity/volume] in Serum or PlasmaOrdered By: Ricki Sam on 08-23-2023 ALT [Catalytic activity/Vol] 26 U/L 7-52 [facility] Albumin [Mass/volume] in Ser um or Plasma by Bromocresol green (BCG) dye binding methoOrdered By: Ricki Sam on 08-23-2023 Albumin BCG dye [Mass/Vol] 4.4 g/dL 3.5-5.7 [facility] Alkaline phosphatase [Enzyma tic activity/volume] in Serum or PlasmaOrdered By: Ricki Sam on 08-23-2023 ALP [Catalytic activity/Vol] 41 U/L 34-104 [facility] Aspartate aminotransferase [ Enzymatic activity/volume] in Serum or PlasmaOrdered By: Ricki Sam on 08-23-2023 AST [Catalytic activity/Vol] 28 U/L 13-39 [facility] Basophils Auto (Bld) [#/Vol] Ordered By: Ricki Sam on 08-23-2023 Basophils (Bld) [#/Vol] 0.1 10*3/uL 0.0-0.2 [facility] Basophils/100 WBC Auto (Bld) Ordered By: Ricki Sam on 08-23-2023 Basophils/100 WBC (Bld) 1.1 % . [facility] Bilirubin Test strip Ql (U)O rdered By: Ricki Sam on 08-23-2023 Bilirubin Ql (U) Negative Negative [facility] Bilirubin.direct [Mass/volum e] in Serum or PlasmaOrdered By: Ricki Sam on 08-23-2023 Bilirubin.direct [Mass/Vol] 0.10 mg/dL 0.03-0.18 [facility] Bilirubin.total [Mass/volume ] in Serum or PlasmaOrdered By: Ricki Sam on 08-23-2023 Bilirubin [Mass/Vol] 0.6 mg/dL 0.3-1.0 [facility] Calcium [Mass/volume] in Ser um or PlasmaOrdered By: Ricki Sam on 08-23-2023 Calcium [Mass/Vol] 10.3 mg/dL 8.6-10.[address] [facility] Carbon dioxide, total [Moles /volume] in Serum or PlasmaOrdered By: Ricki Sam on 08-23-2023 CO2 [Moles/Vol] 31.2 mmol/L 21.0-31.0 [facility] Chloride [Moles/volume] in S amylin or PlasmaOrdered By: Ricki Sam 08-23-2023 Chloride [Moles/Vol] 97 mmol/L 98-107 [facility] Color Auto (U)Ordered By: Eleazar Sam on 08-23-2023 Color (U) Yellow Yellow [facility] Creatinine [Mass/volume] in Serum or PlasmaOrdered By: Ricki Sam 08-23-2023 Creatinine [Mass/Vol] 0.72 mg/dL 0.60-1.20 [facility] Eosinophils Auto (Bld) [#/Vo l]Ordered By: Ricki Sam 08-23-2023 Eosinophils (Bld) [#/Vol] 0.2 10*3/uL 0.0-0.45 [facility] Eosinophils/100 WBC Auto (Bl d)Ordered By: Ricki Sam on 08-23-2023 Eosinophils/100 WBC (Bld) 3.0 % . [facility] Erythrocyte distribution wid th Auto (RBC) [Ratio]Ordered By: Ricki Sam on 08-23-2023 Erythrocyte distribution width (RBC) [Ratio] 13.5 % 11.9-15.3 [facility] Globulin Calc (S) [Mass/Vol] Ordered By: Ricki Sam 08-23-2023 Globulin (S) [Mass/Vol] 2.7 g/dL [facility] Glucose [Mass/volume] in Ser um or PlasmaOrdered By: Ricki Sam on 08-23-2023 Glucose [Mass/Vol] 107 mg/dL 70-[address] [facility] Comment on above: ADA recommended refe rence rangeRandom Glucose Reference Range is dependent on time and content of last meal. Glucose of more than 200 mg/dL in a nonstressed, ambulatory subject supports the diagnosis of Diabetes Mellitus. Hematocrit Auto (Bld) [Volum e fraction]Ordered By: Ricki Sma on 08-23-2023 Hematocrit (Bld) [Volume fraction] 37.4 % 34.0-46.4 [facility] Hemoglobin [Mass/volume] in BloodOrdered By: Ricki Sam on 08-23-2023 Hemoglobin (Bld) [Mass/Vol] 12.9 g/dL 11.8-15.4 [facility] INR in Platelet poor plasma by Coagulation assayOrdered By: Ricki Sam on 08-23-2023 INR Coag (PPP) [Relative time] 1.1 {INR} [facility] Comment on above: INR Therapeutic Rang e [...] on 08-23-2023 Ketones (U) [Mass/Vol] Negative Negative [facility] Leukocytes [#/volume] correc ryanne for nucleated erythrocytes in Blood by Automated counOrdered By: Ricki Sam on 08-23-2023 WBC corrected for nucl RBC Auto (Bld) [#/Vol] 5.4 10*3/uL 3.8-11.6 [facility] Lipase [Enzymatic activity/v olume] in Serum or PlasmaOrdered By: Ricki Sam on 08-23-2023 Lipase [Catalytic activity/Vol] 33.0 U/L 11.0-82.0 [facility] Lymphocytes Auto (Bld) [#/Vo l]Ordered By: Ricki Sam on 08-23-2023 Lymphocytes (Bld) [#/Vol] 2.0 10*3/uL 1.00-4.8 [facility] Lymphocytes/100 WBC Auto (Bl d)Ordered By: Ricki Sam on 08-23-2023 Lymphocytes/100 WBC (Bld) 36.4 % . [facility] MCH Auto (RBC) [Entitic mass ]Ordered By: Ricki Sam on 08-23-2023 MCH (RBC) [Entitic mass] 29.5 pg 24.7-34.3 [facility] MCHC Auto (RBC) [Mass/Vol]Or dered By: Ricki Sam on 08-23-2023 MCHC (RBC) [Mass/Vol] 34.4 g/dL 32.0-35.0 [facility] MCV Auto (RBC) [Entitic vol] Ordered By: Ricki Sam on 08-23-2023 MCV (RBC) [Entitic vol] 85.8 fL 80-100 [facility] Monocyte distribution width [Entitic volume] in Blood by AutomatedOrdered By: Ricki Sam on 08-23-2023 Monocyte distribution width Auto (Bld) [Entitic vol] 16.22 % 0.00-20.00 [facility] Monocytes Auto (Bld) [#/Vol] Ordered By: Ricki Sam on 08-23-2023 Monocytes (Bld) [#/Vol] 0.4 10*3/uL 0.0-0.8 [facility] Monocytes/100 WBC Auto (Bld) Ordered By: Ricki Sam on 08-23-2023 Monocytes/100 WBC (Bld) 8.4 % . [facility] Neutrophils Auto (Bld) [#/Vo l]Ordered By: Ricki Sam on 08-23-2023 Neutrophils (Bld) [#/Vol] 2.7 10*3/uL 1.8-7.7 [facility] Neutrophils/100 WBC Auto (Bl d)Ordered By: Ricki Sam on 08-23-2023 Neutrophils/100 WBC (Bld) 51.1 % . [facility] Nitrite Test strip Ql (U)Ord ered By: Ricki Sam on 08-23-2023 Nitrite Ql (U) Negative Negative [facility] No Panel InformationOrdered By: Ricki Sam on 08-23-2023 Estimated GFR (CKD-EPI) > 60.0 mL/Min [facility] Creatinine Clearance (Chem 37.83 [facility] Nucleated erythrocytes [Pres ence] in Blood by Automated countOrdered By: Ricki Sam on 08-23-2023 Nucleated RBC Auto Ql (Bld) 0.1 /100{WBC} 0-0.5 [facility] Platelet mean volume Auto (B ld) [Entitic vol]Ordered By: Ricki Sam on 08-23-2023 Platelet mean volume (Bld) [Entitic vol] 7.6 fL 6.3-10.7 [facility] Platelets Auto (Bld) [#/Vol] Ordered By: Ricki Sam on 08-23-2023 Platelets (Bld) [#/Vol] 177 10*3/uL 150-450 [facility] Potassium [Moles/volume] in Serum or PlasmaOrdered By: Ricki Sam on 08-23-2023 Potassium [Moles/Vol] 4.6 mmol/L 3.5-5.1 [facility] Protein Auto test strip (U) [Mass/Vol]Ordered By: Ricki Sam on 08-23-2023 Protein (U) [Mass/Vol] Negative Negative [facility] Protein [Mass/volume] in Ser um or PlasmaOrdered By: Ricki Sam on 08-23-2023 Protein [Mass/Vol] 7.1 g/dL 6.4-8.[address] [facility] Prothrombin time (PT)Ordered By: Ricki Sam on 08-23-2023 PT Coag (PPP) [Time] 13.7 s 9.0-12.9 [facility] Comment on above: A hematocrit value g reater than 55% may lead to inaccurate results in coagulation testing. Patients having hematocrit values >55% require a special collection tube for coagulation studies. Please contact the laboratory at [phone] for redraw instructions. RBC Auto (Bld) [#/Vol]Ordere d By: Ricki Sam on 08-23-2023 RBC (Bld) [#/Vol] 4.37 10*6/uL 3.60-5.00 [facility] Serum or plasma albumin/glob ulin mass ratioOrdered By: Ricki Sam on 08-23-2023 Albumin/Globulin [Mass ratio] 1.6 {ratio} [facility] Serum or plasma anion gap de terminationOrdered By: Ricki Sam on 08-23-2023 Anion gap [Moles/Vol] N/A [facility] Serum or plasma non-glucuron idated bilirubin measurement (mass/volume)Ordered By: Ricki Sam on 08-23-2023 Bilirubin.indirect [Mass/Vol] 0.5 mg/dL [facility] Sodium [Moles/volume] in Ser um or PlasmaOrdered By: Ricki Sam on 08-23-2023 Sodium [Moles/Vol] 132 mmol/L 136-[address] [facility] Specific gravity Auto test s trip (U) [Rel density]Ordered By: Ricki Sam on 08-23-2023 Specific gravity (U) [Rel density] 1.005 1.001-1.03 0 [facility] Urea nitrogen [Mass/volume] in Serum or PlasmaOrdered By: Ricki Sam on 08-23-2023 Urea nitrogen [Mass/Vol] 14 mg/dL 7-25 [facility] Urine clarity by refractomet ry automatedOrdered By: Ricki Sam on 08-23-2023 Clarity Refractometry automated (U) Clear Clear [facility] Urine glucose measurement by automated test strip (mass/volume)Ordered By: Ricki Sam on 08-23-2023 Glucose Auto test strip (U) [Mass/Vol] Normal mg/dL Normal [facility] Urine hemoglobin detection b y automated test stripOrdered By: Ricki Sam on 08-23-2023 Hemoglobin Auto test strip Ql (U) Negative Negative [facility] Urine leukocyte esterase det ection by automated test stripOrdered By: Ricki Sam on 08-23-2023 Leukocyte esterase Auto test strip Ql (U) Negative Negative [facility] Urobilinogen Auto test strip (U) [Mass/Vol]Ordered By: Ricki Sam on 08-23-2023 Urobilinogen (U) [Mass/Vol] Normal mg/dL Normal [facility] WBC Auto (Bld) [#/Vol]Ordere d By: Ricki Sam on 08-23-2023 WBC (Bld) [#/Vol] 5.4 10*3/uL 3.8-11.[address] [facility] pH Auto test strip (U)Ordere d By: Ricki Sam on 08-23-2023 pH (U) 7.5 [pH] 5.0-9.0 [facility] Glucose Glucometer (BldC) [M ass/Vol]Ordered By: Mark Win on 02-12-2023 Glucose [Mass/Vol] 124 mg/dL [facility] Comment on above: Random Glucose Refer ence Range is dependent on time and content of last meal. Glucose of more than 200 mg/dL in a nonstressed, ambulatory subject supports the diagnosis of Diabetes Mellitus. No Panel InformationOrdered By: Mark Win on 02-12-2023 Bedside Glucose Comment Glu2: cleaned meter [facility] Activated partial thrombopla stin time (aPTT) in platelet poor plasma by coagulation aOrdered By: Rory Rosas on 01-30-2023 aPTT Coag (PPP) [Time] 32.4 s 25.1-36.5 [facility] Basophils Auto (Bld) [#/Vol] Ordered By: Rory Rosas on 01-30-2023 Basophils (Bld) [#/Vol] 0.0 10*3/uL 0.0-0.2 [facility] Basophils/100 WBC Auto (Bld) Ordered By: Rory Rosas on 01-30-2023 Basophils/100 WBC (Bld) 0.9 % . [facility] Carbon dioxide, total [Moles /volume] in Serum or PlasmaOrdered By: Rory Rosas on 01-30-2023 CO2 [Moles/Vol] 31.4 mmol/L 21.0-31.0 [facility] Chloride [Moles/volume] in S maylin or PlasmaOrdered By: Rory Rosas on 01-30-2023 Chloride [Moles/Vol] 99 mmol/L 98-107 [facility] Cholesterol [Mass/volume] in Serum or PlasmaOrdered By: Rory Rosas on 01-30-2023 Cholesterol [Mass/Vol] 143 mg/dL 140-200 [facility] Comment on above: Chol less than 200 m g/dl low riskChol 201-239 mg/dl borderline riskChol 240 mg/dl and greater high risk Cholesterol in LDL Calc [Mas s/Vol]Ordered By: Rory Rosas on 01-30-2023 Cholesterol in LDL [Mass/Vol] 63 mg/dL 0-100 [facility] Comment on above: LDL ATP III CLASSIFI CATIONLDL less than 100 mg/dL OptimalLDL 100-129 mg/dL Near or above optimalLDL 130-159 mg/dL Borderline highLDL 160-189 mg/dL HighLDL greater than 189 mg/dL Very high Cholesterol in VLDL Calc [Ma ss/Vol]Ordered By: Rory Rosas on 01-30-2023 Cholesterol in VLDL [Mass/Vol] 14 mg/dL [facility] Creatinine [Mass/volume] in Serum or PlasmaOrdered By: Rory Rosas on 01-30-2023 Creatinine [Mass/Vol] 0.73 mg/dL 0.60-1.20 [facility] Eosinophils Auto (Bld) [#/Vo l]Ordered By: Rory Rosas on 01-30-2023 Eosinophils (Bld) [#/Vol] 0.2 10*3/uL 0.0-0.45 [facility] Eosinophils/100 WBC Auto (Bl d)Ordered By: Rory Rosas on 01-30-2023 Eosinophils/100 WBC (Bld) 3.9 % . [facility] Erythrocyte distribution wid th Auto (RBC) [Ratio]Ordered By: Rory Rosas on 01-30-2023 Erythrocyte distribution width (RBC) [Ratio] 13.5 % 11.9-15.3 [facility] Hematocrit Auto (Bld) [Volum e fraction]Ordered By: Rory Rosas on 01-30-2023 Hematocrit (Bld) [Volume fraction] 38.6 % 34.0-46.4 [facility] Hemoglobin [Mass/volume] in BloodOrdered By: Rory Rosas on 01-30-2023 Hemoglobin (Bld) [Mass/Vol] 12.9 g/dL 11.8-15.4 [facility] Laboratory - Chemistry and C hemistry - challengeon 01-30-2023 Cholesterol [Mass/Vol] 143\S\143 Normal 140-200 -[facility] [address] DO Work Phone: Comment on above: Chol less than 200 m g/dl low risk Chol 201-239 mg/dl borderline risk Chol 240 mg/dl and greater high risk Cholesterol in LDL [Mass/Vol] 63\S\63 Normal 0-100 [facility] [address] DO Work Phone: Comment on above: LDL ATP III CLASSIFI CATION LDL less than 100 mg/dL Optimal LDL 100-129 mg/dL Near or above optimal LDL 130-159 mg/dL Borderline high LDL 160-189 mg/dL High LDL greater than 189 mg/dL Very high Laboratory - CoagulationOrde red By: Rory Rosas on 01-30-2023 PT Coag (PPP) [Time] 13.0 s 9.0-12.9 [facility] Leukocytes [#/volume] correc ryanne for nucleated erythrocytes in Blood by Automated counOrdered By: Rory Rosas on 01-30-2023 WBC corrected for nucl RBC Auto (Bld) [#/Vol] 4.7 10*3/uL 3.8-11.6 [facility] Lymphocytes Auto (Bld) [#/Vo l]Ordered By: Rory Rosas on 01-30-2023 Lymphocytes (Bld) [#/Vol] 1.1 10*3/uL 1.00-4.8 [facility] Lymphocytes/100 WBC Auto (Bl d)Ordered By: Rory Rosas on 01-30-2023 Lymphocytes/100 WBC (Bld) 23.9 % . [facility] Auto (RBC) [Entitic mass ]Ordered By: Rory Rosas on 01-30-2023 MCH (RBC) [Entitic mass] 28.6 pg 24.7-34.3 [facility] MCHC Auto (RBC) [Mass/Vol]Or dered By: Rory Rosas on 01-30-2023 MCHC (RBC) [Mass/Vol] 33.5 g/dL 32.0-35.0 [facility] MCV Auto (RBC) [Entitic vol] Ordered By: Rory Rosas on 01-30-2023 MCV (RBC) [Entitic vol] 85.5 fL 80-100 [facility] Monocytes Auto (Bld) [#/Vol] Ordered By: Rory Rosas on 01-30-2023 Monocytes (Bld) [#/Vol] 0.3 10*3/uL 0.0-0.8 [facility] Monocytes/100 WBC Auto (Bld) Ordered By: Rory Rosas on 01-30-2023 Monocytes/100 WBC (Bld) 7.4 % . [facility] Neutrophils Auto (Bld) [#/Vo l]Ordered By: Rory Rosas on 01-30-2023 Neutrophils (Bld) [#/Vol] 3.0 10*3/uL 1.8-7.7 [facility] Neutrophils/100 WBC Auto (Bl d)Ordered By: Rory Rosas on 01-30-2023 Neutrophils/100 WBC (Bld) 63.9 % . [facility] No Panel InformationOrdered By: Rory Rosas on 01-30-2023 Estimated GFR (CKD-EPI) > 60.0 mL/Min [facility] Pharmacy Creatinine Clearance (Chem N/A [facility] No Panel Informationon 01-30 66\S\66 Normal 35-85 [facility] [employer] [facility] Center[facility] y 250 DO Work Phone: Comment on above: HDL CHOL ATP-III CLA SSIFICATION Cardiovascular Risk HDL > or equal to 60 mg/dL LOW HDL < 40 mg/dL HIGH 70\S\70 Normal 0-149 [facility] DO Work Phone: Comment on above: TRIG ATP III CLASSIF ICATION TRIG less than 150 mg/dL Normal TRIG 150-199 mg/dL Borderline high TRIG 200-500 mg/dL High TRIG greater than 500 mg/dL Very high Standard traceable to the Center for Disease Conrtrol and Prevention (CDC) test method. 14\S\14 Normal [facility] y 250 DO Work Phone: 2.2\S\2.2 Normal <5.0 [facility] y 250 DO Work Phone: [phone] Comment on above: PERFORMED BY:[facility] BATESJuliaSILVERCOATSV[place], [place] [id number] MEDICAL DIRECTORTIM CHRISTIAN M.D. 0.73\S\0.73 Normal 0.60-1.20 [facility] y 250 DO Work Phone: [phone] > 60.0 Normal [facility] Heart[employer] y 250 DO Work Phone: [phone] 16\S\16 Normal 7-25 [facility] y 250 DO Work Phone: [phone] 10.5\S\10.5 Normal 6.0-15.0 [facility] y 250 DO Work Phone: [phone] 137\S\137 Normal 136-145 [facility] y 250 DO Work Phone: [phone] 3.9\S\3.9 Normal . [facility] y 250 DO Work Phone: [phone] 99\S\99 Normal 98-107 [facility] y 250 DO Work Phone: [phone] 31.4\S\31.4 above high threshold 21.0-31.0 [facility] HeartVarinder kunz 250 DO Work Phone: [phone] 13.0\S\13.0 above high threshold 9.0-12.9 [facility] y 250 DO Work Phone: [phone] 1.1\S\1.1 Normal 1.00-4.8 [facility] y 250 DO Work Phone: [phone] Comment on above: INR Therapeutic Rang e [...] valves: 3 - 4.5 32.4\S\32.4 Normal 25.1-36.5 -[facility] y 250 DO Work Phone: [phone] Comment on above: PERFORMED BY:[facility] MOCTEZUMACOATSV[place]LE, [place] [phone] MEDICAL DIRECTORKAISER FOUNDATION HOSPITAL.Justin 0.0\S\0.0 Normal 0.0-0.2 -[facility] y 250 DO Work Phone: [phone] Comment on above: PERFORMED BY:[facility] RHIANNACOATSV[place]LE, [place] [id number] MEDICAL DIRECTORKAISER FOUNDATION HOSPITAL.Justin 0.2\S\0.2 Normal 0.0-0.45 -[facility] y 250 DO Work Phone: [phone] 0.3\S\0.3 Normal 0.0-0.8 -[facility] y 250 DO Work Phone: [phone] 3.0\S\3.0 Normal 1.8-7.7 -[facility] y 250 DO Work Phone: [phone] 0.1\S\0.1 Normal 0-0.5 -[facility] y 250 DO Work Phone: [phone] 0.9\S\0.9 Normal . [facility] y 250 DO Work Phone: [phone] 7.4\S\7.4 Normal . [facility] y 250 DO Work Phone: [phone] 23.9\S\23.9 Normal . -[facility] y 250 DO Work Phone: [phone] 63.9\S\63.9 Normal . [facility] y 250 DO Work Phone: [phone] 7.3\S\7.3 Normal 6.3-10.7 -[facility] y 250 DO Work Phone: [phone] 199\S\199 Normal 150-450 [facility] y 250 DO Work Phone: 13.5\S\13.5 Normal 11.9-15.3 [facility] y 250 DO Work Phone: [phone] 33.5\S\33.5 Normal 32.0-35.0 [facility] Center[facility] kunz 250 DO Work Phone: 28.6\S\28.6 Normal 24.7-34.3 [facility] y 250 DO Work Phone: [phone] 85.5\S\85.5 Normal 80-100 [facility] Jefe y 250 DO Work Phone: [phone] 38.6\S\38.6 Normal 34.0-46.4 [facility] Center[facility] kunz 250 DO Work Phone: 12.9\S\12.9 Normal 11.8-15.4 [facility] Center[facility] kunz 250 DO Work Phone: 4.52\S\4.52 Normal 3.60-5.00 [facility] Center[facility] y 250 DO Work Phone: [phone] 4.7\S\4.7 Normal 3.8-11.6 [facility] kunz [facility] DO Work Phone: [phone] Nucleated erythrocytes [Pres ence] in Blood by Automated countOrdered By: Rory Rosas on 01-30-2023 Nucleated RBC Auto Ql (Bld) 0.1 /100{WBC} 0-0.5 [facility] Platelet mean volume Auto (B ld) [Entitic vol]Ordered By: Rory Rosas on 01-30-2023 Platelet mean volume (Bld) [Entitic vol] 7.3 fL 6.3-10.7 [facility] Platelet poor plasma interna tional normalized ratio (INR) by coagulation assay (relatOrdered By: Rory Rosas on 01-30-2023 INR Coag (PPP) [Relative time] 1.1 {INR} [facility] Comment on above: INR Therapeutic Rang e [...] 01-30-2023 Platelets (Bld) [#/Vol] 199 10*3/uL 150-450 [facility] Potassium [Moles/volume] in Serum or PlasmaOrdered By: Rory Rosas on 01-30-2023 Potassium [Moles/Vol] 3.9 mmol/L 3.5-5.1 [facility] RBC Auto (Bld) [#/Vol]Ordere d By: Rory Rosas on 01-30-2023 RBC (Bld) [#/Vol] 4.52 10*6/uL 3.60-5.00 [facility] Serum or plasma anion gap de terminationOrdered By: Rory Rosas on 01-30-2023 Anion gap [Moles/Vol] 10.5 mmol/L 6.0-15.0 [facility] Serum or plasma high density lipoprotein (HDL) cholesterol measurementOrdered By: Rory Rosas on 01-30-2023 Cholesterol in HDL [Mass/Vol] 66 mg/dL 35-85 [facility] Comment on above: HDL CHOL ATP-III CLA SSIFICATION Cardiovascular RiskHDL > or equal to 60 mg/dL LOWHDL < 40 mg/dL HIGH Serum or plasma total choles terol/high density lipoprotein (HDL) cholesterol mass ratOrdered By: Rory Rosas on 01-30-2023 Cholesterol.total/Cho lesterol in HDL [Mass ratio] 2.2 {ratio} <5.0 [facility] Sodium [Moles/volume] in Ser um or PlasmaOrdered By: Rory Rosas on 01-30-2023 Sodium [Moles/Vol] 137 mmol/L 136-[address] [facility] Triglyceride [Mass/volume] i n Serum or PlasmaOrdered By: Rory Rosas on 01-30-2023 Triglyceride [Mass/Vol] 70 mg/dL 0-149 [facility] Comment on above: TRIG ATP III CLASSIF ICATIONTRIG less than 150 mg/dL NormalTRIG 150-199 mg/dL Borderline highTRIG 200-500 mg/dL High TRIG greater than 500 mg/dL Very highStandard traceable to the Center for Disease Conrtrol and Prevention (CDC) test method. Urea nitrogen [Mass/volume] in Serum or PlasmaOrdered By: Rory Rosas on 01-30-2023 Urea nitrogen [Mass/Vol] 16 mg/dL 7- [facility] WBC Auto (Bld) [#/Vol]Ordere d By: Rory Rosas on 01-30-2023 WBC (Bld) [#/Vol] 4.7 10*3/uL 3.8-11.[address] [facility] CHEMISTRYOrdered By: SYSTEM SYSTEM on 01-25-2023 Albumin [Mass/Vol] 4.0 g/dL Normal 3.3 - 5.0 gm/dL [facility] Albumin/Globulin [Mass ratio] 1.7 {ratio} Normal 1.1 - 2.2 [facility] ALP [Catalytic activity/Vol] 38 [iU]/d Normal 21 - 98 Int._Unit/ L [facility] ALT No additional P-5'-P [Catalytic activity/Vol] 20 [iU]/d Normal 6 - 46 Int._Unit/ L [facility] Anion gap [Moles/Vol] 13 mmol/L Normal 6 - 16 mEq/L [facility] AST [Catalytic activity/Vol] 22 [iU]/d Normal 5 - 43 Int._Unit/ L [facility] Bilirubin [Mass/Vol] 0.6 mg/dL Normal 0.0 - 1 .1 mg/dL [facility] Calcium [Mass/Vol] 9.9 mg/dL Normal 8.9 - 11. 1 mg/dL [facility] Chloride [Moles/Vol] 91 mmol/L Low 101 - 1 11 mmol/L [facility] CO2 [Moles/Vol] 32 mmol/L High 21 - 31 mmol/L [facility] Creatinine [Mass/Vol] 0.7 mg/dL Normal 0.5 - 1.3 mg/dL [facility] GFR/1.73 sq M.predicted among blacks MDRD (S/P/Bld) [Vol rate/Area] mL/min/1.73 m2 Normal >=59mL/min /1.73 m2 [facility] Chem S GFR/1.73 sq M.predicted among non-blacks MDRD (S/P/Bld) [Vol rate/Area] mL/min/1.73 m2 Normal >=59mL/min /1.73 m2 [facility] S Globulin (S) [Mass/Vol] 2.4 g/dL Normal 1.4 - 4.0 gm/dL [facility] Glucose [Mass/Vol] 150 mg/dL Normal 55 - 199 mg/dL [facility] Potassium [Moles/Vol] 4.0 mmol/L Normal 3.5 - 5.3 mmol/L [facility] Protein [Mass/Vol] 6.4 g/dL Normal 6.0 - 7.8 gm/dL [facility] Sodium [Moles/Vol] 132 mmol/L Low 135 - 145 mmol/L [facility] Urea nitrogen [Mass/Vol] 17 mg/dL Normal 5 - 21 mg/dL [facility] Urea nitrogen/Creatinine [Mass ratio] 24 mg/mg High 10 - 20 [facility] Office Visit (Cardiology)on 01-21-2023 Follow-up visit Diagnoses/Problems [...] PAIN Cardiac Catheterization Lab Procedures; Status:Active; Requested for:21Jan2023; Body mass index (BMI) of 19.9 or less in adult Healthy Weight Tips; Status:Complete; Done: [id number] Patient Instructions Please bring all medicines, vitamins, [...] contact the office if new symptoms arise. [employer] after testing Chief Complaint Add on d/t [...] of Cholecystectomy (more content not included)... Normal [facility] Tobacco Screening.on 023 Adult depression screening assessment No [facility] [employer] y 250 DO Work Phone: Fall risk assessment a) No falls within the last year [facility] [employer] y 250 DO Work Phone: Tobacco use status CPHS b) No [facility] [employer] y 250 DO Work Phone: CARDIAC NISHA ADMITon 023 CK [Catalytic activity/Vol] 48 U/L Normal 26-192 [facility] Comment on above: Performed By: #### H STROPN, BNP, LIPA, CMP, TSH #### [facility] [address] [address] [address] Alyson Rowley CK.MB [Mass/Vol] 1.29 ng/mL Normal <=3.60 [facility] Comment on above: Performed By: #### H STROPN, BNP, LIPA, CMP, TSH #### [facility] [address] [place] [address] Dr. Alyson Rowley HSTROP 4.3 pg/mL Normal 4.0-51.3 [facility] Comment on above: Result Comment: CUT- OFF POINTS HAVE BEEN ESTABLISHED BASED ON THE FOURTH UNIVERSAL DEFINITIONS OF MYOCARDIAL INFARCTION. THE UPPER REFERENCE LIMIT (URL) OF TROPONIN, DEFINED THE 99TH PERCENTILE OF cTnI DISTRIBUTION IN A REFERENCE POPULATION, HAS BEEN CONFIRMED THE DECISION THRESHOLD FOR [place] DIAGNOSIS. Performed By: #### H STROPN, BNP, LIPA, CMP, TSH #### [facility] [address] [place] [address] Dr. Alyson Rowley DORA 30 ng/mL Normal 9-82 [facility] Comment on above: Performed By: #### H STROPN, BNP, LIPA, CMP, TSH #### [facility] [address] [place] [address] Dr. Alyson Rowley CBC AUTO DIFFon 01-19-2023 BASO # 0.1 103/ul Normal 0.0-0.1 [facility] Comment on above: Performed By: #### H STROPN, BNP, LIPA, CMP, TSH #### [facility] [address] [place] [address] Dr. Alyson Rowley Basophils/100 WBC (Bld) 0.5 % Normal 0.2-2.0 [facility] Comment on above: Performed By: #### H STROPN, BNP, LIPA, CMP, TSH #### [facility] [address] [place] [address] Dr. Alyson Rowley EO # 0.2 103/ul Normal 0.0-0.7 [facility] Comment on above: Performed By: #### H STROPN, BNP, LIPA, CMP, TSH #### [facility] [address] [place] [address] Dr. Alyson Rowley Eosinophils/100 WBC (Bld) 2.1 % Normal 0.9-7.0 [facility] Comment on above: Performed By: #### H STROPN, BNP, LIPA, CMP, TSH #### [facility] [address] [address] [address] Alyson Rowley Erythrocyte distribution width (RBC) [Ratio] 12.6 % Normal 11.0-15.0 [facility] Comment on above: Performed By: #### H STROPN, BNP, LIPA, CMP, TSH #### [facility] [address] [address] [address] Alyson Rowley Hematocrit (Bld) [Volume fraction] 37.3 % Normal 36.0-48.0 [facility] Comment on above: Performed By: #### H STROPN, BNP, LIPA, CMP, TSH #### [facility] [address] [place] [address] Dr. Alyson Rowley Hemoglobin (Bld) [Mass/Vol] 12.9 g/dL Normal 12.0-16.0 [facility] Comment on above: Performed By: #### H STROPN, BNP, LIPA, CMP, TSH #### [facility] [address] [place] [address] Dr. Alyson Rowley IG # 0.03 10e3/ul Normal 0.00-0.03 [facility] Comment on above: Performed By: #### H STROPN, BNP, LIPA, CMP, TSH #### [facility] [address] [place] [address] Dr. Alyson Rowley IG % 0.3 % Normal 0.0-0.5 [facility] Comment on above: Performed By: #### H STROPN, BNP, LIPA, CMP, TSH #### [facility] [address] [place] [address] Dr. Alyson Rowley LYMPH # 1.4 103/ul Normal 1.2-3.8 [facility] Comment on above: Performed By: #### H STROPN, BNP, LIPA, CMP, TSH #### [facility] [address] [place] [address] Dr. Alyson Rowley Lymphocytes/100 WBC (Bld) 14.5 % Critically low 20.5-60.0 [facility] Comment on above: Performed By: #### H STROPN, BNP, LIPA, CMP, TSH #### [facility] [address] [address] [address] Alyson Rowley MANUAL DIFF REQ NO Normal [facility] Comment on above: Performed By: #### H STROPN, BNP, LIPA, CMP, TSH #### [facility] [address] [address] [address] Alyson Rowley MCH (RBC) [Entitic mass] 28.7 pg Normal 26.7-34.0 [facility] Comment on above: Performed By: #### H STROPN, BNP, LIPA, CMP, TSH #### [facility] [address] [address] [address] Alyson Rowley MCHC (RBC) [Mass/Vol] 34.6 g/dL Normal 29.9-35.2 [facility] Comment on above: Performed By: #### H STROPN, BNP, LIPA, CMP, TSH #### [facility] [address] [address] [address] Alyson Rowley MCV (RBC) [Entitic vol] 82.9 fL Normal 81.0-99.0 [facility] Comment on above: Performed By: #### H STROPN, BNP, LIPA, CMP, TSH #### [facility] [address] [address] [address] Alyson Rowley MONO # 0.7 103/ul Normal 0.3-0.8 [facility] Comment on above: Performed By: #### H STROPN, BNP, LIPA, CMP, TSH #### [facility] [address] [address] [address] Alyson Rowley Monocytes/100 WBC (Bld) 6.9 % Normal 1.7-12.0 [facility] Comment on above: Performed By: #### H STROPN, BNP, LIPA, CMP, TSH #### [facility] [address] [address] [address] Alyson Rowley NEUT # 7.4 103/ul Critically high 1.4-6.5 [facility] Comment on above: Performed By: #### H STROPN, BNP, LIPA, CMP, TSH #### [facility] [address] [place] [address] Dr. Alyson Rowley Neutrophils/100 WBC (Bld) 75.7 % Critically high 43.0-75.0 [facility] Comment on above: Performed By: #### H STROPN, BNP, LIPA, CMP, TSH #### [facility] [address] [address] [address] Alyson Rowley Platelet mean volume (Bld) [Entitic vol] 8.7 fL Critically low 9.5-13.5 [facility] Comment on above: Performed By: #### H STROPN, BNP, LIPA, CMP, TSH #### [facility] [address] [place] [address] Dr. Alyson Rowley PLT 253 103/ul Normal 150-450 [facility] Comment on above: Performed By: #### H STROPN, BNP, LIPA, CMP, TSH #### [facility] [address] [place] [address] Dr. Alyson Rowley RBC 4.50 106/ul Normal 4.20-5.40 [facility] Comment on above: Performed By: #### H STROPN, BNP, LIPA, CMP, TSH #### [facility] [address] [place] [address] Dr. Alyson Rowley WBC 9.8 103/ul Normal 4.0-11.0 [facility] Comment on above: Performed By: #### H STROPN, BNP, LIPA, CMP, TSH #### [facility] [address] [place] [address] HEAD WO CONon [...] of acute intracranial abnormality. Electronically authenticated by: FERNANDO UNLU Date: 2023-01-19 20:36 Normal [facility] ER URINE PROFILEon 3 Bilirubin Ql (U) Negative Normal NEGATIVE [facility] Comment on above: Performed By: #### U MICRO, ERUR ####[facility] [address] [address]Dr[address] Alyson Rowley Clarity (U) CLEAR Normal CLEAR [facility] Comment on above: Performed By: #### U MICRO, ERUR ####[facility] [address] [place], [place] [address]Dr. Alyson Rowley Color (U) YELLOW Normal YELLOW [facility] Comment on above: Performed By: #### U MICRO, ERUR ####[facility] [address] [place], [place] [address]Dr. Alyson Amrik ERUAHD A micrscopic examina tion will be performed if indicated. Normal [facility] Comment on above: Performed By: #### U MICRO, ERUR ####[facility] [address] [address]Dr. Yilan Rowley Glucose Ql (U) Negative Normal NEGATIVE [facility] Comment on above: Performed By: #### U MICRO, ERUR ####[facility] [address] [address]Dr. Yilan Rowley Hemoglobin Ql (U) Negative Normal NEGATIVE [facility] Comment on above: Performed By: #### U MICRO, ERUR ####[facility] [address] [address]Dr. Felilan Rowley Ketones Ql (U) Negative Normal NEGATIVE [facility] Comment on above: Performed By: #### U MICRO, ERUR ####[facility] [address] [address]Dr. Alyson Rowley LEUKOCYTES TRACE Abnormal NEGATIVE [facility] Comment on above: Performed By: #### U MICRO, ERUR ####[facility] [address] [address]Dr. Alyson Rowley Nitrite Ql (U) Negative Normal NEGATIVE [facility] Comment on above: Performed By: #### U MICRO, ERUR ####[facility] [address] [address]Dr. Alyson Rowley pH (U) 6.5 [pH] Normal 5-9 [facility] Comment on above: Performed By: #### U MICRO, ERUR ####[facility] [address] [address]Dr. Alyson Rowley Protein (U) [Mass/Vol] 30 mg/dL Abnormal NEGATIVE/ TRACE [facility] Comment on above: Performed By: #### U MICRO, ERUR ####[facility] [address] [place], [place] [address]Dr. Alyson Rowley SPEC GRAVITY 1.020 Normal 1.005-<=1. 025 [facility] Comment on above: Performed By: #### U MICRO, ERUR ####[facility] [address] [place], [place] [address]Dr. Alyson Rowley UR MICRO IND INDICATED Normal [facility] Comment on above: Performed By: #### U MICRO, ERUR ####[facility] [address] [place], [place] [address]Dr. Alyson Rowley Urobilinogen Qn (U) 0.2 {Karen'U}/dL Normal 0.2 - 1. 0 [facility] Comment on above: Performed By: #### U MICRO, ERUR ####[facility] [address] [place], [place] [address]Dr. Alyson Rowley PROF 14(COMP METB)on 023 Albumin [Mass/Vol] 3.7 g/dL Normal 3.4-5.0 [facility] Comment on above: Performed By: #### H STROPN, BNP, LIPA, CMP, TSH #### [facility] [address] [place] [address] Dr. Alyson Rowley Albumin/Globulin [Mass ratio] 1.2 {ratio} Normal [facility] Comment on above: Performed By: #### H STROPN, BNP, LIPA, CMP, TSH #### [facility] [address] [place] [address] Dr. Alyson Rowley ALP [Catalytic activity/Vol] 57 U/L Normal 46-116 [facility] Comment on above: Performed By: #### H STROPN, BNP, LIPA, CMP, TSH #### [facility] [address] [place] [address] Dr. Alyson Rowley ALT [Catalytic activity/Vol] 25 U/L Normal 14-59 [facility] Comment on above: Performed By: #### H STROPN, BNP, LIPA, CMP, TSH #### [facility] [address] [place] [address] Dr. Alyson Rowley Anion gap [Moles/Vol] 13.8 mmol/L Normal [facility] Comment on above: Performed By: #### H STROPN, BNP, LIPA, CMP, TSH #### [facility] [address] [place] [address] Dr. Alyson Rowley AST [Catalytic activity/Vol] 23 U/L Normal 15-37 [facility] Comment on above: Performed By: #### H STROPN, BNP, LIPA, CMP, TSH #### [facility] [address] [place] [address] Dr. Alyson Rowley Bilirubin [Mass/Vol] 0.4 mg/dL Normal 0.2-1.0 [facility] Comment on above: Performed By: #### H STROPN, BNP, LIPA, CMP, TSH #### [facility] [address] [place] [address] Dr. Alyson Rowley Calcium [Mass/Vol] 9.5 mg/dL Normal 8.5-10.1 [facility] Comment on above: Performed By: #### H STROPN, BNP, LIPA, CMP, TSH #### [facility] [address] [address] [address] Alyson Rowley Chloride [Moles/Vol] 91 mmol/L Critically low 98-107 [facility] Comment on above: Performed By: #### H STROPN, BNP, LIPA, CMP, TSH #### [facility] [address] [address] [address] Alyson Rowley CO2 [Moles/Vol] 26.8 mmol/L Normal 21.0-32.0 [facility] Comment on above: Performed By: #### H STROPN, BNP, LIPA, CMP, TSH #### [facility] [address] [address] [address] Alyson Rowley Creatinine [Mass/Vol] 0.71 mg/dL Normal 0.55-1.02 [facility] Comment on above: Performed By: #### H STROPN, BNP, LIPA, CMP, TSH #### [facility] [address] [place] [address] Dr. Alyson Rowley EGFR-AF [place] >60 Normal >=60 [facility] Comment on above: Performed By: #### H STROPN, BNP, LIPA, CMP, TSH #### [facility] [address] [place] [address] Dr. Alyson Rowley EGFR-NON AF [place]AN >60 Normal >=60 [facility] Comment on above: Performed By: #### H STROPN, BNP, LIPA, CMP, TSH #### [facility] [address] [address] [address] Alyson Rowley Globulin (S) [Mass/Vol] 3.2 g/dL Normal [facility] Comment on above: Performed By: #### H STROPN, BNP, LIPA, CMP, TSH #### [facility] [address] [address] [address] Alyson Rowley Glucose [Mass/Vol] 100 mg/dL Normal 74-106 [facility] Comment on above: Performed By: #### H STROPN, BNP, LIPA, CMP, TSH #### [facility] [address] [place] [address] Dr. Alyson Rowley Potassium [Moles/Vol] 4.6 mmol/L Normal 3.5-5.1 [facility] Comment on above: Performed By: #### H STROPN, BNP, LIPA, CMP, TSH #### [facility] [address] [address] [address] Alyson Rowley Protein [Mass/Vol] 6.9 g/dL Normal 6.4-8.2 [facility] Comment on above: Performed By: #### H STROPN, BNP, LIPA, CMP, TSH #### [facility] [address] [address] [address] Alyson Rowley Sodium [Moles/Vol] 127 mmol/L Critically low 136-145 [facility] Comment on above: Performed By: #### H STROPN, BNP, LIPA, CMP, TSH #### [facility] [address] [address] [address] Alyson Rowley Urea nitrogen [Mass/Vol] 15.0 mg/dL Normal 7.0-18.0 [facility] Comment on above: Performed By: #### H STROPN, BNP, LIPA, CMP, TSH #### [facility] [address] [address] [address] Alyson Rowley Urea nitrogen/Creatinine [Mass ratio] 21.1 mg/mg Normal [facility] Comment on above: Performed By: #### H STROPN, BNP, LIPA, CMP, TSH #### [facility] [address] [address] [address] Alyson Rowley URINE MICROSCOPIC ONLYon BACTERIA NONE SEEN Normal NONE SEEN [facility] Comment on above: Performed By: #### U MICRO, ERUR ####[facility] [address] [address]Dr. Alyson Rowley Bacteria identified Cx Nom (U) NOT INDICATED Normal [facility] Comment on above: Performed By: #### U MICRO, ERUR ####[facility] [address] [address]Dr. Alyson Rowley CAST NONE SEEN Normal NONE SEEN [facility] Comment on above: Performed By: #### U MICRO, ERUR ####[facility] [address] [address]Dr. Felipoonam Rowley Crystals LM Nom (Urine sed) NONE SEEN Normal NONE SEEN [facility] Comment on above: Performed By: #### U MICRO, ERUR ####[facility] [address] [address]Dr. Felipoonam Rowley Epithelial cells LM Ql (Urine sed) MANY Abnormal NONE SEEN /RARE [facility] Comment on above: Performed By: #### U MICRO, ERUR ####[facility] [address] [address]Dr. Felipoonam Rowley MUCOUS NONE SEEN Normal NONE SEEN [facility] Comment on above: Performed By: #### U MICRO, ERUR ####[facility] [address] [address]Dr. Alyson Rowley RBC 0-2 Normal 0-2 [facility] Comment on above: Performed By: #### U MICRO, ERUR ####[facility] [address] [address]Dr. Alyson Rowley WBC 2-5 Abnormal NONE SEEN [facility] Comment on above: Performed By: #### U MICRO, ERUR ####[facility] [address] [place], [place] [address]Dr. Alyson Rowley XR CHEST 1 Von 01-19-2023 XR [...] SARAH BROWN Date: 2023-01-19 20:28 Normal [facility] ACETONE SERUMon 01-11-2023 ACETONE Negative Normal NEGATIVE [facility] Comment on above: Performed By: #### A CETON ####[facility] [address] [place], [place] [address]Dr. Alyson Rowley BNPon 01-11-2023 Natriuretic peptide B (Bld) [Mass/Vol] 308.0 pg/mL Normal <=1,800.0 [facility] Comment on above: Performed By: #### H STROPN, BNP, LIPA, CMP, TSH #### [facility] [address] [place] [address] Dr. Alyson Rowley CBC AUTO DIFFon 01-11-2023 BASO # 0.0 103/ul Normal 0.0-0.1 [facility] Comment on above: Performed By: #### H STROPN, BNP, LIPA, CMP, TSH #### [facility] [address] [place] [address] Dr. Alyson Rowley Basophils/100 WBC (Bld) 0.7 % Normal 0.2-2.0 [facility] Comment on above: Performed By: #### H STROPN, BNP, LIPA, CMP, TSH #### [facility] [address] [place] [address] Dr. Alyson Rowley EO # 0.2 103/ul Normal 0.0-0.7 [facility] Comment on above: Performed By: #### H STROPN, BNP, LIPA, CMP, TSH #### [facility] [address] [place] [address] Dr. Alyson Rowley Eosinophils/100 WBC (Bld) 2.6 % Normal 0.9-7.0 [facility] Comment on above: Performed By: #### H STROPN, BNP, LIPA, CMP, TSH #### [facility] [address] [place] [address] Dr. Alyson Rowley Erythrocyte distribution width (RBC) [Ratio] 12.6 % Normal 11.0-15.0 [facility] Comment on above: Performed By: #### H STROPN, BNP, LIPA, CMP, TSH #### [facility] [address] [place] [address] Dr. Alyson Rowley Hematocrit (Bld) [Volume fraction] 38.3 % Normal 36.0-48.0 [facility] Comment on above: Performed By: #### H STROPN, BNP, LIPA, CMP, TSH #### [facility] [address] [address] [address] Alyson Rowley Hemoglobin (Bld) [Mass/Vol] 12.9 g/dL Normal 12.0-16.0 [facility] Comment on above: Performed By: #### H STROPN, BNP, LIPA, CMP, TSH #### [facility] [address] [place] [address] Dr. Alyson Rowley IG # 0.02 10e3/ul Normal 0.00-0.03 [facility] Comment on above: Performed By: #### H STROPN, BNP, LIPA, CMP, TSH #### [facility] [address] [place] [address] Dr. Alyson Rowley IG % 0.3 % Normal 0.0-0.5 [facility] Comment on above: Performed By: #### H STROPN, BNP, LIPA, CMP, TSH #### [facility] [address] [place] [address] Dr. Alyson Rowley LYMPH # 1.5 103/ul Normal 1.2-3.8 [facility] Comment on above: Performed By: #### H STROPN, BNP, LIPA, CMP, TSH #### [facility] [address] [place] [address] Dr. Alyson Rowley Lymphocytes/100 WBC (Bld) 26.3 % Normal 20.5-60.0 [facility] Comment on above: Performed By: #### H STROPN, BNP, LIPA, CMP, TSH #### [facility] [address] [place] [address] Dr. Alyson Rowley MANUAL DIFF REQ NO Normal [facility] Comment on above: Performed By: #### H STROPN, BNP, LIPA, CMP, TSH #### [facility] [address] [place] [address] Dr. Alyson Rowley MCH (RBC) [Entitic mass] 28.3 pg Normal 26.7-34.0 [facility] Comment on above: Performed By: #### H STROPN, BNP, LIPA, CMP, TSH #### [facility] [address] [place] [address] Dr. Alyson Rowley MCHC (RBC) [Mass/Vol] 33.7 g/dL Normal 29.9-35.2 [facility] Comment on above: Performed By: #### H STROPN, BNP, LIPA, CMP, TSH #### [facility] [address] [place] [address] Dr. Alyson Rowley MCV (RBC) [Entitic vol] 84.0 fL Normal 81.0-99.0 [facility] Comment on above: Performed By: #### H STROPN, BNP, LIPA, CMP, TSH #### [facility] [address] [place] [address] Dr. Alyson Rowley MONO # 0.5 103/ul Normal 0.3-0.8 [facility] Comment on above: Performed By: #### H STROPN, BNP, LIPA, CMP, TSH #### [facility] [address] [place] [address] Dr. Alyson Rowley Monocytes/100 WBC (Bld) 8.7 % Normal 1.7-12.0 [facility] Comment on above: Performed By: #### H STROPN, BNP, LIPA, CMP, TSH #### [facility] [address] [place] [address] Dr. Alyson Rowley NEUT # 3.5 103/ul Normal 1.4-6.5 [facility] Comment on above: Performed By: #### H STROPN, BNP, LIPA, CMP, TSH #### [facility] [address] [place] [address] Dr. Alyson Rowley Neutrophils/100 WBC (Bld) 61.4 % Normal 43.0-75.0 [facility] Comment on above: Performed By: #### H STROPN, BNP, LIPA, CMP, TSH #### [facility] [address] [place] [address] Dr. Alysno Rowley Platelet mean volume (Bld) [Entitic vol] 9.0 fL Critically low 9.5-13.5 [facility] Comment on above: Performed By: #### H STROPN, BNP, LIPA, CMP, TSH #### [facility] [address] [address] [address] Alyson Rowley PLT 234 103/ul Normal 150-450 [facility] Comment on above: Performed By: #### H STROPN, BNP, LIPA, CMP, TSH #### [facility] [address] [place] [address] Dr. Alyson Rowley RBC 4.56 106/ul Normal 4.20-5.40 [facility] Comment on above: Performed By: #### H STROPN, BNP, LIPA, CMP, TSH #### [facility] [address] [place] [address] Dr. Alyson Rowley WBC 5.7 103/ul Normal 4.0-11.0 [facility] Comment on above: Performed By: #### H STROPN, BNP, LIPA, CMP, TSH #### [facility] [address] [place] [address] Dr. Alyson Rowley ER URINE PROFILEon 3 Bilirubin Ql (U) Negative Normal NEGATIVE [facility] Comment on above: Performed By: #### H STROPN, BNP, LIPA, CMP, TSH #### [facility] [address] [place] [address] Dr. Alyson Rowley Clarity (U) CLEAR Normal CLEAR [facility] Comment on above: Performed By: #### H STROPN, BNP, LIPA, CMP, TSH #### [facility] [address] [place] [address] Dr. Alyson Rowley Color (U) LT. YELLOW Normal YELLOW [facility] Comment on above: Performed By: #### H STROPN, BNP, LIPA, CMP, TSH #### [facility] [address] [place] [address] Dr. Alyson Rowley ERUAHD A micrscopic examina tion will be performed if indicated. Normal [facility] Comment on above: Performed By: #### H STROPN, BNP, LIPA, CMP, TSH #### [facility] [address] [place] [address] Dr. Alysno Rowley Glucose Ql (U) Negative Normal NEGATIVE [facility] Comment on above: Performed By: #### H STROPN, BNP, LIPA, CMP, TSH #### [facility] [address] [address] [address] Alyson Rowley Hemoglobin Ql (U) Negative Normal NEGATIVE [facility] Comment on above: Performed By: #### H STROPN, BNP, LIPA, CMP, TSH #### [facility] [address] [address] [address] Alyson Rowley Ketones Ql (U) Negative Normal NEGATIVE [facility] Comment on above: Performed By: #### H STROPN, BNP, LIPA, CMP, TSH #### [facility] [address] [address] [address] Alyson Rowley LEUKOCYTES Negative Normal NEGATIVE [facility] Comment on above: Performed By: #### H STROPN, BNP, LIPA, CMP, TSH #### [facility] [address] [address] [address] Alyson Rowley Nitrite Ql (U) Negative Normal NEGATIVE [facility] Comment on above: Performed By: #### H STROPN, BNP, LIPA, CMP, TSH #### [facility] [address] [address] [address] Alyson Rowley pH (U) 7.5 [pH] Normal 5-9 [facility] Comment on above: Performed By: #### H STROPN, BNP, LIPA, CMP, TSH #### [facility] [address] [address] [address] Alyson Rowley SPEC GRAVITY 1.010 Normal 1.005-<=1. 025 [facility] Comment on above: Performed By: #### H STROPN, BNP, LIPA, CMP, TSH #### [facility] [address] [address] [address] Alyson Rowley UA PROTEIN Negative Normal NEGATIVE/ TRACE [facility] Comment on above: Performed By: #### H STROPN, BNP, LIPA, CMP, TSH #### [facility] [address] [address] [address] Alyson Rowley UR MICRO IND NOT INDICATED Normal [facility] Comment on above: Performed By: #### H STROPN, BNP, LIPA, CMP, TSH #### [facility] [address] [address] [address] Alyson Rowley Urobilinogen Qn (U) 0.2 {Karen'U}/dL Normal 0.2 - 1. 0 [facility] Comment on above: Performed By: #### H STROPN, BNP, LIPA, CMP, TSH #### [facility] [address] [address] [address] Alyson Rowley LACTATE/LACTIC ACIDon 2022 Lactate [Moles/Vol] 1.3 mmol/L Normal 0.4-2.0 [facility] Comment on above: Performed By: #### L ACT ####[facility] [address] [address]Dr. Alyson Rowley LIPASEon 01-11-2023 Lipase [Catalytic activity/Vol] 101.0 U/L Normal 73.0-393.0 [facility] Comment on above: Performed By: #### H STROPN, BNP, LIPA, CMP, TSH #### [facility] [address] [address] [address] Alyson Rowley PH VENOUS BLOODon 01-11-2023 PCO2 VENOUS 52.3 mmHg Critically high 40.0-52.0 [facility] Comment on above: Performed By: #### P HVEN ####[facility] [address] [address]Dr. Alyson Rowley pH VENOUS 7.391 Normal 7.330-7.[address] [place] [address] Comment on above: Performed By: #### P HVEN ####[facility] [address] [address]Dr. Alyson Rowley PROF 14(COMP METB)on 023 Albumin [Mass/Vol] 3.9 g/dL Normal 3.4-5.0 [facility] Comment on above: Performed By: #### H STROPN, BNP, LIPA, CMP, TSH #### [facility] [address] [address] [address] Alyson Rowley Albumin/Globulin [Mass ratio] 1.3 {ratio} Normal [facility] Comment on above: Performed By: #### H STROPN, BNP, LIPA, CMP, TSH #### [facility] [address] [address] [address] Alyson Rowley ALP [Catalytic activity/Vol] 56 U/L Normal 46-116 [facility] Comment on above: Performed By: #### H STROPN, BNP, LIPA, CMP, TSH #### [facility] [address] [address] [address] Alyson Rowley ALT [Catalytic activity/Vol] 31 U/L Normal 14-59 [facility] Comment on above: Performed By: #### H STROPN, BNP, LIPA, CMP, TSH #### [facility] [address] [place] [address] Dr. Alyson Rowley Anion gap [Moles/Vol] 9.2 mmol/L Normal [facility] Comment on above: Performed By: #### H STROPN, BNP, LIPA, CMP, TSH #### [facility] [address] [place] [address] Dr. Alyson Rowley AST [Catalytic activity/Vol] 17 U/L Normal 15-37 [facility] Comment on above: Performed By: #### H STROPN, BNP, LIPA, CMP, TSH #### [facility] [address] [place] [address] Dr. Alyson Rowley Bilirubin [Mass/Vol] 0.4 mg/dL Normal 0.2-1.0 [facility] Comment on above: Performed By: #### H STROPN, BNP, LIPA, CMP, TSH #### [facility] [address] [place] [address] Dr. Alyson Rowley Calcium [Mass/Vol] 9.7 mg/dL Normal 8.5-10.1 [facility] Comment on above: Performed By: #### H STROPN, BNP, LIPA, CMP, TSH #### [facility] [address] [place] [address] Dr. Alyson Rowley Chloride [Moles/Vol] 92 mmol/L Critically low 98-107 [facility] Comment on above: Performed By: #### H STROPN, BNP, LIPA, CMP, TSH #### [facility] [address] [address] [address] Alyson Rowley CO2 [Moles/Vol] 32.3 mmol/L Critically high 21.0-32.0 [facility] Comment on above: Performed By: #### H STROPN, BNP, LIPA, CMP, TSH #### [facility] [address] [address] [address] Alyson Rwoley Creatinine [Mass/Vol] 0.65 mg/dL Normal 0.55-1.02 [facility] Comment on above: Performed By: #### H STROPN, BNP, LIPA, CMP, TSH #### [facility] [address] [place] [address] Dr. Alyson Rowley EGFR-AF [place] >60 Normal >=60 [facility] Comment on above: Performed By: #### H STROPN, BNP, LIPA, CMP, TSH #### [facility] [address] [place] [address] Dr. Alyson Rowley EGFR-NON AF [place] >60 Normal >=60 [facility] Comment on above: Performed By: #### H STROPN, BNP, LIPA, CMP, TSH #### [facility] [address] [place] [address] Dr. Alyson Rowley Globulin (S) [Mass/Vol] 3.0 g/dL Normal [facility] Comment on above: Performed By: #### H STROPN, BNP, LIPA, CMP, TSH #### [facility] [address] [address] [address] Alyson Rowley Glucose [Mass/Vol] 107 mg/dL Critically high 74-106 [facility] Comment on above: Performed By: #### H STROPN, BNP, LIPA, CMP, TSH #### [facility] [address] [place] [address] Dr. Alyson Rowley Potassium [Moles/Vol] 4.5 mmol/L Normal 3.5-5.1 [facility] Comment on above: Performed By: #### H STROPN, BNP, LIPA, CMP, TSH #### [facility] [address] [address] [address] Alyson Rowley Protein [Mass/Vol] 6.9 g/dL Normal 6.4-8.2 [facility] Comment on above: Performed By: #### H STROPN, BNP, LIPA, CMP, TSH #### [facility] [address] [address] [address] Alyson Rowley Sodium [Moles/Vol] 129 mmol/L Critically low 136-145 [facility] Comment on above: Performed By: #### H STROPN, BNP, LIPA, CMP, TSH #### [facility] [address] [address] [address] Alyson Rowley Urea nitrogen [Mass/Vol] 11.0 mg/dL Normal 7.0-18.0 [facility] Comment on above: Performed By: #### H STROPN, BNP, LIPA, CMP, TSH #### [facility] [address] [address] [address] Alyson Rowley Urea nitrogen/Creatinine [Mass ratio] 16.9 mg/mg Normal [facility] Comment on above: Performed By: #### H STROPN, BNP, LIPA, CMP, TSH #### [facility] [address] [address] [address] Alyson Rowley PROTIMEon 01-11-2023 INR Coag (PPP) [Relative time] 1.06 {INR} Normal [facility] Comment on above: Performed By: #### P TT, PT ####[facility] [address] [address]Dr. Alyson Rowley INR GUIDELINES SEE BELOW Normal [facility] Comment on above: Result Comment: YUE RED INR: 2.0 - 3.0 CONDITIONS NOT LISTED BELOW 2.5 - 3.5 FOR PROSTHETIC HEART VALVE REPLACEMENT 2.5 - 3.5 RECURRENT THROMBOSIS Performed By: #### P TT, PT ####[facility] [address] [address]Dr. Alyson Rowley PT Coag (PPP) [Time] 11.2 s Normal 9.0-11.6 [facility] Comment on above: Performed By: #### P TT, PT ####[facility] [address] [id number]. Alyson Rowley PTTon 01-11-2023 aPTT Coag (Bld) [Time] 28.2 s Normal 22.3-36.2 [facility] Comment on above: Performed By: #### P TT, PT ####[facility] [address] [address]DrJulia Rowley TROPONIN, HIGH SENSITIVITYon 01-11-2023 HSTROP 5.4 pg/mL Normal 4.0-51.3 [facility] Comment on above: Result Comment: CUT- OFF POINTS HAVE BEEN ESTABLISHED BASED ON THE FOURTH UNIVERSAL DEFINITIONS OF MYOCARDIAL INFARCTION. THE UPPER REFERENCE LIMIT (URL) OF TROPONIN, DEFINED THE 99TH PERCENTILE OF cTnI DISTRIBUTION IN A REFERENCE POPULATION, HAS BEEN CONFIRMED THE DECISION THRESHOLD FOR [place] DIAGNOSIS. Performed By: #### H STROPN ####[facility] [address] [address]Dr. Alyson Rowley HSTROP 6.4 pg/mL Normal 4.0-51.3 [facility] Comment on above: Result Comment: CUT- OFF POINTS HAVE BEEN ESTABLISHED BASED ON THE FOURTH UNIVERSAL DEFINITIONS OF MYOCARDIAL INFARCTION. THE UPPER REFERENCE LIMIT (URL) OF TROPONIN, DEFINED THE 99TH PERCENTILE OF cTnI DISTRIBUTION IN A REFERENCE POPULATION, HAS BEEN CONFIRMED THE DECISION THRESHOLD FOR [place] DIAGNOSIS. Performed By: #### H STROPN, BNP, LIPA, CMP, TSH #### [facility] [address] [address] [address] Alyson Rowley TSHon 01-11-2023 TSH 1.267 uIU/mL Normal 0.358-3.74 0 [facility] Comment on above: Performed By: #### H STROPN, BNP, LIPA, CMP, TSH #### [facility] [address] [address] [address] Alyson Rowley XR CHEST 1 Von [...] ALDO BYRD Date: 2023-01-11 17:05 Normal [facility] CELIAC ANTIBODIES PROFILEon 12-24-2022 Deamidated Gliadin Abs, IgA 5 units Normal 0-19 [facility] Comment on above: Result Comment: Nega tive 0 - 19 Weak Positive 20 - 30 Moderate to Strong Positive >30 Performed By: #### C ELIACP ####[facility] [address] [address]Dr. Alyson Rowley Deamidated Gliadin Abs, IgG 3 units Normal 0-19 [facility] Comment on above: Result Comment: Nega tive 0 - 19 Weak Positive 20 - 30 Moderate to Strong Positive >30 Performed By: #### C ELIACP ####[facility] [address] [place], [place] [address]Dr. Alyson Rowley Endomysial Antibody IgA Negative Normal Negative [facility] Comment on above: Performed By: #### C ELIACP ####[facility] [address] [address]Dr. Alyson Rowley Immunoglobulin A, Qn, Serum 172 mg/dL Normal 64-422 [facility] Comment on above: Performed By: #### C ELIACP ####[facility] [address] [place], [place] [address]Dr. Alyson Rowley t-Transglutaminase (tTG) IgA <2 Normal 0-3 [facility] Comment on above: Result Comment: Nega tive 0 - 3 Weak Positive 4 - 10 Positive >10 . Tissue Transglutaminase (tTG) has been identified as the endomysial antigen. Studies have demonstr- ated that endomysial IgA antibodies have over 99% specificity for gluten sensitive enteropathy. Performed By: #### C ELIACP ####[facility] [address] [address]Dr. Alyson Rowley t-Transglutaminase (tTG) IgG <2 Normal 0-5 The [facility] Comment on above: Result Comment: Nega tive 0 - 5 Weak Positive 6 - 9 Positive >9 Performed By: #### C ELIACP ####[facility] [id number] [place], [place] [address]SzJulia Rowley Albumin [Mass/volume] in Ser um or PlasmaOrdered By: Mark Win on 12-17-2022 Albumin [Mass/Vol] 4.0 g/dL 3.2-5.[address] [facility] Alkaline phosphatase [Enzyma tic activity/volume] in Serum or PlasmaOrdered By: Mark Win on 12-17-2022 ALP [Catalytic activity/Vol] 40 U/L 32-92 [facility] Aspartate aminotransferase [ Enzymatic activity/volume] in Serum or PlasmaOrdered By: Mark Win on 12-17-2022 AST [Catalytic activity/Vol] 31 U/L 10-42 [facility] Basophils Auto (Bld) [#/Vol] Ordered By: Mark Win on 12-17-2022 Basophils (Bld) [#/Vol] 0.1 10*3/uL 0.0-0.2 [facility] Basophils/100 WBC Auto (Bld) Ordered By: Mark Win on 12-17-2022 Basophils/100 WBC (Bld) 1.1 % . [facility] Bilirubin.total [Mass/volume ] in Serum or PlasmaOrdered By: Mark Win on 12-17-2022 Bilirubin [Mass/Vol] 0.6 mg/dL 0.3-1.2 [facility] Blood Mycobacterium tubercul osis tuberculin stimulated gamma interferon detectionOrdered By: Mark Win on 12-17-2022 M. tuberculosis tuberculin stim IFN-g Ql (Bld) See comment . [facility] Comment on above: QuantiFERON-TB Gold Plus is a qualitative indirect test forM tuberculosis infection (including disease) and isintended for use in conjunction with risk assessment,radiography, and other medical and diagnostic evaluations.The QuantiFERON-TB Gold Plus result is determined bysubtracting the Nil value from either TB antigen (Ag)value. The Mitogen tube serves as a control for the test. M. tuberculosis tuberculin stim IFN-g Ql (Bld) 0.06 [IU]/mL . [facility] M. tuberculosis tuberculin stim IFN-g Ql (Bld) 0.07 [IU]/mL . [facility] Blood mitogen stimulated derik ma interferon measurement (units/volume)Ordered By: Mark Win on 12-17-2022 Mitogen stimulated gamma interferon Qn (Bld) >10.00 [IU]/mL . [facility] Bowel Disorders Cascadeon Bowel Disorders [facility] [employer] Other C reactive protein [Mass/vol ume] in Serum or PlasmaOrdered By: Mark Win on 12-17-2022 CRP [Mass/Vol] 0.5 mg/dL 0.0-1.0 [facility] C-Reactive Proteinon 023 C-Reactive Protein 0.5 mg/dL Normal 0.0-1.0 mg/dL [facility] [employer] Other Calcium [Mass/volume] in Ser um or PlasmaOrdered By: Mark Win on 12-17-2022 Calcium [Mass/Vol] 9.7 mg/dL 8.2-10.[address] [facility] Calprotectin [Mass/mass] in StoolOrdered By: Mark Win on 12-17-2022 Calprotectin (Stl) [Mass/Mass] 23 ug/g 0-120 [facility] Comment on above: Concentration Interp retation Follow-Up<16 - 50 ug/g Normal None>50 -120 ug/g Borderline Re-evaluate in 4-6 weeks >120 ug/g Abnormal Repeat as clinically indicatedPerformed at: - [facility] [address] [id number] Director: Alfonso Canales MD, Phone: [phone] Calprotectin, Fecalon 2022 Calprotectin, Fecal 23 0-120 [facility] [employer] Other Carbon dioxide, total [Moles /volume] in Serum or PlasmaOrdered By: Mark Win on 12-17-2022 CO2 [Moles/Vol] 28.7 mmol/L 22.0-30.0 [facility] Chloride [Moles/volume] in S maylin or PlasmaOrdered By: Mark Win on 12-17-2022 Chloride [Moles/Vol] 91 mmol/L 95-114 [facility] Complete Blood Count Auto Di ffon 12-17-2022 Basophils (Bld) [#/Vol] 0.267235236 10*3/uL Normal 0.0-0.2 10*3/uL [email or web address] Other Basophils/100 WBC (Bld) 1.100 % . % [email or web address] Other Eosinophils (Bld) [#/Vol] 0.672802499 10*3/uL Normal 0.0-0.45 10*3/uL [email or web address] Other Eosinophils/100 WBC (Bld) 4.200 % . % [email or web address] Other Erythrocyte distribution width (RBC) [Ratio] 13.200 % Normal 11.9-15.3 % [email or web address] Other Hematocrit (Bld) [Volume fraction] 38.100 % Normal 34.0-46.4 % [employer] Other Hemoglobin (Bld) [Mass/Vol] 12.987494 g/dL Normal 11.8-15.4 g/dL [employer] Other Lymphocytes (Bld) [#/Vol] 1.142727339 10*3/uL Normal 1.00-4.8 10*3/uL [employer] Other Lymphocytes/100 WBC (Bld) 28.900 % . % [employer] Other MCH (RBC) [Entitic mass] 28.7000 pg Normal 24.7-34.3 pg [employer] Other MCV (RBC) [Entitic vol] 85.2000 fL Normal 80-100 fL [employer] Other Monocytes (Bld) [#/Vol] 0.939258851 10*3/uL Normal 0.0-0.8 10*3/uL [employer] Other Monocytes/100 WBC (Bld) 7.500 % . % [employer] Other Neutrophils (Bld) [#/Vol] 3.348308524 10*3/uL Normal 1.8-7.7 10*3/uL [employer] Other Neutrophils/100 WBC (Bld) 58.300 % . % [employer] Other Platelet mean volume (Bld) [Entitic vol] 7.7000 fL Normal 6.3-10.7 fL [employer] Other WBC (Bld) [#/Vol] 5.741116358 10*3/uL Normal 3.8 -11.6 10*3/uL [employer] Other Complete Blood Count Auto Diff 5.4 10*3/uL Normal 3.8-11.6 10*3/uL [employer] Other Complete Blood Count Auto Diff 33.6 g/dL Normal 32.0-35.0 g/dL [employer] Other Complete Blood Count Auto Diff 0.1 /100{WBC} Normal 0-0.5 /100{WBC} [employer] Other Comprehensive Metabolic Pane ruben 12-17-2022 Albumin [Mass/Vol] 4.148599 g/dL Normal 3.2-5.5 g/dL [employer] Other ALT [Catalytic activity/Vol] 25 U/L Normal 10-60 U/L [employer] Other Bilirubin [Mass/Vol] 0.2660834 mg/dL Normal 0.3- 1.2 mg/dL [employer] Other Calcium [Mass/Vol] 9.9686576 mg/dL Normal 8.2-10 .2 mg/dL [employer] Other CO2 [Moles/Vol] 28.17088240 mmol/L Normal 22.0-3 0.0 mmol/L [employer] Other Creatinine [Mass/Vol] 0.07954297 mg/dL Normal 0. 44-1.03 mg/dL [employer] Other Potassium [Moles/Vol] 4.22543402 mmol/L Normal 3 .5-5.1 mmol/L [employer] Other Protein [Mass/Vol] 6.123986 g/dL Normal 6.1-7.9 g/dL [employer] Other Comprehensive Metabolic Panel > 60 [employer] Other Comprehensive Metabolic Panel 2.2 g/dL [employer] Other Creatinine and Glomerular fi ltration rate.predicted panel (S/P/Bld)Ordered By: Mark Win on 12-17-2022 Creatinine [Mass/Vol] 0.62 mg/dL 0.44-1.03 [facility] Elastase.pancreatic [Mass/ma ss] in StoolOrdered By: Mark Win on 12-17-2022 Elastase.pancreatic (Stl) [Mass/Mass] 212 >200 [facility] Comment on above: Result Units: ug Dione st./g Severe Pancreatic Insufficiency: <100 Moderate Pancreatic Insufficiency: 100 - 200 Normal: >200Performed at: - [facility] [address] [id number] Director: Alfonso Canales MD, Phone: [phone] Eosinophils Auto (Bld) [#/Vo l]Ordered By: Mark Win on 12-17-2022 Eosinophils (Bld) [#/Vol] 0.2 10*3/uL 0.0-0.45 [facility] Eosinophils/100 WBC Auto (Bl d)Ordered By: Mark Win on 12-17-2022 Eosinophils/100 WBC (Bld) 4.2 % . [facility] Erythrocyte Sedimentation Ra radha 12-17-2022 ESR (Bld) [Velocity] 5 mm/h Normal 0-29 [facility] Other Erythrocyte distribution wid th Auto (RBC) [Ratio]Ordered By: Mark Win on 12-17-2022 Erythrocyte distribution width (RBC) [Ratio] 13.2 % 11.9-15.3 [facility] Erythrocyte sedimentation ra te by Photometric methodOrdered By: Mark Win on 12-17-2022 ESR Photometric method (Bld) [Velocity] 5 mm/hr 0-29 [facility] Erythrocytes [#/volume] in B lood by Automated countOrdered By: Mark Win on 12-17-2022 RBC (Bld) [#/Vol] 4.47 10*6/uL 3.60-5.00 [facility] Estimated glomerular filtrat ion rate (GFR) non- AmericanOrdered By: Mark Win on 12-17-2022 GFR/1.73 sq M.predicted among non-blacks MDRD (S/P/Bld) [Vol rate/Area] > 60 mL/Min [facility] Gliadin peptide+tissue trans glutaminase IgA+IgG Ab [Presence] in Serum by ImmunoassayOrdered By: Mark Win on 12-17-2022 Gliadin peptide+tissue transglutaminase IgA+IgG IA Ql (S) Positive Negative [facility] Globulin Calc (S) [Mass/Vol] Ordered By: Mark Win on 12-17-2022 Globulin (S) [Mass/Vol] 2.2 g/dL [facility] Glucose [Mass/volume] in Ser um or PlasmaOrdered By: Mark Win on 12-17-2022 Glucose [Mass/Vol] 132 mg/dL 70-[address] [facility] Comment on above: ADA recommended refe rence rangeRandom Glucose Reference Range is dependent on time and content of last meal. Glucose of more than 200 mg/dL in a nonstressed, ambulatory subject supports the diagnosis of Diabetes Mellitus. Hematocrit Auto (Bld) [Volum e fraction]Ordered By: Mark Win on 12-17-2022 Hematocrit (Bld) [Volume fraction] 38.1 % 34.0-46.4 [facility] Hemoglobin [Mass/volume] in BloodOrdered By: Mark Win on 12-17-2022 Hemoglobin (Bld) [Mass/Vol] 12.8 g/dL 11.8-15.4 [facility] Laboratory - CoagulationOrde red By: Mark Win on 12-17-2022 PT Coag (PPP) [Time] 12.6 s 9.0-12.9 [facility] Lactoferrin, Stool WBCon Lactoferrin, Stool WBC [email or web address] Other Leukocytes [#/volume] correc ryanne for nucleated erythrocytes in Blood by Automated counOrdered By: Mark Win on 12-17-2022 WBC corrected for nucl RBC Auto (Bld) [#/Vol] 5.4 10*3/uL 3.8-11.6 [facility] Lymphocytes Auto (Bld) [#/Vo l]Ordered By: Mark Win on 12-17-2022 Lymphocytes (Bld) [#/Vol] 1.6 10*3/uL 1.00-4.8 [facility] Lymphocytes/100 WBC Auto (Bl d)Ordered By: Mark Win on 12-17-2022 Lymphocytes/100 WBC (Bld) 28.9 % . [facility] MCH Auto (RBC) [Entitic mass ]Ordered By: Mrak Win on 12-17-2022 MCH (RBC) [Entitic mass] 28.7 pg 24.7-34.3 [facility] MCHC Auto (RBC) [Mass/Vol]Or dered By: Mark Win on 12-17-2022 MCHC (RBC) [Mass/Vol] 33.6 g/dL 32.0-35.0 [facility] MCV Auto (RBC) [Entitic vol] Ordered By: Mark Win on 12-17-2022 MCV (RBC) [Entitic vol] 85.2 fL 80-100 [facility] Monocytes Auto (Bld) [#/Vol] Ordered By: Mark Win on 12-17-2022 Monocytes (Bld) [#/Vol] 0.4 10*3/uL 0.0-0.8 [facility] Monocytes/100 WBC Auto (Bld) Ordered By: Mark Win on 12-17-2022 Monocytes/100 WBC (Bld) 7.5 % . [facility] Mycobacterium tuberculosis s timulated gamma interferon [Interpretation] in Blood QualOrdered By: aMrk Win on 12-17-2022 M. tuberculosis stim IFN-g Ql (Bld) [Interp] Negative Negative [facility] Comment on above: No response to [...] the productionof interferon gamma. Chemiluminescence immunoassaymethodologyPerformed at: [facility] [address] [id number] Director: Donny Lance PhD, Phone: [phone] Neutrophils Auto (Bld) [#/Vo l]Ordered By: Mark Win on 12-17-2022 Neutrophils (Bld) [#/Vol] 3.2 10*3/uL 1.8-7.7 [facility] Neutrophils/100 WBC Auto (Bl d)Ordered By: Mark Win on 12-17-2022 Neutrophils/100 WBC (Bld) 58.3 % . [facility] No Panel InformationOrdered By: Mark Win on 12-17-2022 Estimated GFR () > 60 mL/Min [facility] Comment on above: GFR estimated refere nce range: According to KDOQI guidelines, <60 ml/min/1.73m2 is sufficient to diagnose a patient with chronic kidney disease. Inflammatory Bowel Disease 7 Note See comment . [facility] Comment on above: Suggestive of celiac disease or other gluten-sensitiveenteropathies. Subsequent testing for Endomysial Antibody,IgA (692044) and/or genetic testing for Celiac Disease [employer] (319205) may be indicated for furtherpatient evaluation.Performed at: - [facility] [id number] Director: Alfonso Canales MD, Phone: [phone] Pharmacy Creatinine Clearance (Chem N/A [facility] Nucleated erythrocytes [Pres ence] in Blood by Automated countOrdered By: Mark Win on 12-17-2022 Nucleated RBC Auto Ql (Bld) 0.1 /100{WBC} 0-0.5 [facility] Pancreatic Elastase, Stoolon 12-17-2022 Pancreatic Elastase, Stool 212 >200 [email or web address] Other Platelet mean volume Auto (B ld) [Entitic vol]Ordered By: Mark Win on 12-17-2022 Platelet mean volume (Bld) [Entitic vol] 7.7 fL 6.3-10.7 [facility] Platelet poor plasma interna tional normalized ratio (INR) by coagulation assay (relatOrdered By: Mark Win on 12-17-2022 INR Coag (PPP) [Relative time] 1.1 {INR} [facility] Comment on above: INR Therapeutic Rang e [...] 12-17-2022 Platelets (Bld) [#/Vol] 200 10*3/uL 150-450 [facility] Potassium [Moles/volume] in Serum or PlasmaOrdered By: Mark Win on 12-17-2022 Potassium [Moles/Vol] 4.2 mmol/L 3.5-5.1 [facility] Protein [Mass/volume] in Ser um or PlasmaOrdered By: Mark Win on 12-17-2022 Protein [Mass/Vol] 6.2 g/dL 6.1-7.[address] [facility] Prothrombin Time INRon 12-17 PT Coag (PPP) [Time] 12.600 s Normal 9.0-12.9 s [facility] [employer] Other QuantiFERON TB Goldon 2022 QuantiFERON TB Gold . [email or web address] Other QuantiFERON TB Gold 0.06 . [email or web address] Other QuantiFERON TB Gold 0.07 . [email or web address] Other QuantiFERON TB Gold >10.00 . [email or web address] Other Serum or plasma alanine gorman otransferase measurement without P-5'-P (enzymatic activiOrdered By: Mark Win on 12-17-2022 ALT No additional P-5'-P [Catalytic activity/Vol] 25 U/L 10-60 [facility] Serum or plasma albumin/glob ulin mass ratioOrdered By: Mark Win on 12-17-2022 Albumin/Globulin [Mass ratio] 1.8 {ratio} [facility] Serum or plasma anion gap de terminationOrdered By: Mark Win on 12-17-2022 Anion gap [Moles/Vol] 11.5 mmol/L 6.0-15.0 [facility] Sodium [Moles/volume] in Ser um or PlasmaOrdered By: Mark Win on 12-17-2022 Sodium [Moles/Vol] 127 mmol/L 136-[address] [facility] Stool lactoferrin detectionO rdered By: Mark Win on 12-17-2022 Lactoferrin Ql (Stl) [facility] Lactoferrin Ql (Stl) [facility] THYROID SCREENon 12-17-2022 Free T4 [Mass/Vol] 0.34620701 ng/dL Normal 0.61- 1.12 ng/dL [email or web address] Other TSH Qn 1.63888018971 m[IU]/L Normal 0.45-5 .33 u[iU]/mL [employer] Other TSH DL <= 0.005 mIU/L QnOrde red By: Mark Win on 12-17-2022 TSH Qn 1.36 m[IU]/L 0.45-5.33 [facility] Thyroxine (T4) free [Mass/vo lume] in Serum or PlasmaOrdered By: Mark Win on 12-17-2022 Free T4 [Mass/Vol] 0.86 ng/dL 0.61-1.[address] [facility] Urea nitrogen [Mass/volume] in Serum or PlasmaOrdered By: Mark Win on 12-17-2022 Urea nitrogen [Mass/Vol] 12 mg/dL 9 [facility] WBC Auto (Bld) [#/Vol]Ordere d By: Mark Win on 12-17-2022 WBC (Bld) [#/Vol] 5.4 10*3/uL 3.8-11.[address] [facility] Whole blood measurement of M ycobacterium tuberculosis stimulated gamma interferon relOrdered By: Mark Win on 12-17-2022 M. tuberculosis stim IFN-g by CD4+ CD8+ T-cells corrected for background Qn (Bld) 0.06 [IU]/mL . [facility] Activated partial thrombopla stin time (aPTT) in platelet poor plasma by coagulation aOrdered By: Jordy Berry on 12-12-2022 aPTT Coag (PPP) [Time] 32.2 s 25.1-36.5 [facility] Automated erythrocytes count in urine sediment (number/area)Ordered By: Jordy Berry on 12-12-2022 RBC Auto (Urine sed) [#/Area] None seen [HPF] 0-4 [facility] Automated leukocytes count i n urine sediment (number/area)Ordered By: Jordy Berry on 12-12-2022 WBC Auto (Urine sed) [#/Area] 1-2 [HPF] 0-4 [facility] Basophils Auto (Bld) [#/Vol] Ordered By: Jordy Berry on 12-12-2022 Basophils (Bld) [#/Vol] 0.1 10*3/uL 0.0-0.2 [facility] Basophils/100 WBC Auto (Bld) Ordered By: Jordy Berry on 12-12-2022 Basophils/100 WBC (Bld) 0.9 % . [facility] Bilirubin Test strip Ql (U)O rdered By: Jordy Berry on 12-12-2022 Bilirubin Ql (U) Negative Negative [facility] Calcium [Mass/volume] in Ser um or PlasmaOrdered By: Jordy Berry on 12-12-2022 Calcium [Mass/Vol] 9.9 mg/dL 8.2-10.[address] [facility] Carbon dioxide, total [Moles /volume] in Serum or PlasmaOrdered By: Jordy Berry on 12-12-2022 CO2 [Moles/Vol] 27.0 mmol/L 22.0-30.0 [facility] Chloride [Moles/volume] in S maylin or PlasmaOrdered By: Jordy Berry on 12-12-2022 Chloride [Moles/Vol] 92 mmol/L 95-114 [facility] Color Auto (U)Ordered By: Christine Berry on 12-12-2022 Color (U) Yellow Yellow [facility] Creatine kinase [Enzymatic a ctivity/volume] in Serum or PlasmaOrdered By: Jordy Berry on 12-12-2022 CK [Catalytic activity/Vol] 41 U/L 22-269 [facility] Creatine kinase.MB [Mass/vol ume] in Serum or PlasmaOrdered By: Jordy Berry on 12-12-2022 CK.MB [Mass/Vol] 1.6 ng/mL 0.6-6.3 [facility] Creatinine and Glomerular fi ltration rate.predicted panel (S/P/Bld)Ordered By: Jordy Berry on 12-12-2022 Creatinine [Mass/Vol] 0.63 mg/dL 0.44-1.03 [facility] Eosinophils Auto (Bld) [#/Vo l]Ordered By: Jordy Berry on 12-12-2022 Eosinophils (Bld) [#/Vol] 0.2 10*3/uL 0.0-0.45 [facility] Eosinophils/100 WBC Auto (Bl d)Ordered By: Jordy Berry on 12-12-2022 Eosinophils/100 WBC (Bld) 2.6 % . [facility] Erythrocyte distribution wid th Auto (RBC) [Ratio]Ordered By: Jordy Berry on 12-12-2022 Erythrocyte distribution width (RBC) [Ratio] 13.4 % 11.9-15.3 [facility] Estimated glomerular filtrat ion rate (GFR) non- AmericanOrdered By: Jordy Berry on 12-12-2022 GFR/1.73 sq M.predicted among non-blacks MDRD (S/P/Bld) [Vol rate/Area] > 60 mL/Min [facility] Glucose [Mass/volume] in Ser um or PlasmaOrdered By: Jordy Berry on 12-12-2022 Glucose [Mass/Vol] 102 mg/dL 70-[address] [facility] Comment on above: ADA recommended refe rence rangeRandom Glucose Reference Range is dependent on time and content of last meal. Glucose of more than 200 mg/dL in a nonstressed, ambulatory subject supports the diagnosis of Diabetes Mellitus. Hematocrit Auto (Bld) [Volum e fraction]Ordered By: Jordy Berry on 12-12-2022 Hematocrit (Bld) [Volume fraction] 39.3 % 34.0-46.4 [facility] Hemoglobin [Mass/volume] in BloodOrdered By: Jordy Berry on 12-12-2022 Hemoglobin (Bld) [Mass/Vol] 13.2 g/dL 11.8-15.4 [facility] Ketones Auto test strip (U) [Mass/Vol]Ordered By: Jordy Berry on 12-12-2022 Ketones (U) [Mass/Vol] Negative Negative [facility] Laboratory - Chemistry and C hemistry - challengeOrdered By: Jordy Berry on 12-12-2022 Natriuretic peptide B (Bld) [Mass/Vol] 78.0 pg/mL 5-100 [facility] Laboratory - CoagulationOrde red By: Jordy Berry on 12-12-2022 PT Coag (PPP) [Time] 12.7 s 9.0-12.9 [facility] Laboratory - UrinalysisOrder ed By: Jordy Berry on 12-12-2022 Hyaline casts LM Ql (Urine sed) None seen [LPF] 0-8 [facility] Leukocytes [#/volume] correc ryanne for nucleated erythrocytes in Blood by Automated counOrdered By: Jordy Berry on 12-12-2022 WBC corrected for nucl RBC Auto (Bld) [#/Vol] 6.7 10*3/uL 3.8-11.6 [facility] Lymphocytes Auto (Bld) [#/Vo l]Ordered By: Jordy Berry on 12-12-2022 Lymphocytes (Bld) [#/Vol] 1.4 10*3/uL 1.00-4.8 [facility] Lymphocytes/100 WBC Auto (Bl d)Ordered By: Jordy Berry on 12-12-2022 Lymphocytes/100 WBC (Bld) 21.5 % . [facility] MCH Auto (RBC) [Entitic mass ]Ordered By: Jordy Berry on 12-12-2022 MCH (RBC) [Entitic mass] 28.5 pg 24.7-34.3 [facility] MCHC Auto (RBC) [Mass/Vol]Or dered By: Jordy Berry on 12-12-2022 MCHC (RBC) [Mass/Vol] 33.6 g/dL 32.0-35.0 [facility] MCV Auto (RBC) [Entitic vol] Ordered By: Jordy Berry on 12-12-2022 MCV (RBC) [Entitic vol] 84.8 fL 80-100 [facility] Monocyte distribution width [Entitic volume] in Blood by AutomatedOrdered By: Jordy Berry on 12-12-2022 Monocyte distribution width Auto (Bld) [Entitic vol] 15.78 % 0.00-20.00 [facility] Monocytes Auto (Bld) [#/Vol] Ordered By: Jordy Berry on 12-12-2022 Monocytes (Bld) [#/Vol] 0.5 10*3/uL 0.0-0.8 [facility] Monocytes/100 WBC Auto (Bld) Ordered By: Jordy Berry on 12-12-2022 Monocytes/100 WBC (Bld) 7.8 % . [facility] Neutrophils Auto (Bld) [#/Vo l]Ordered By: Jordy Berry on 12-12-2022 Neutrophils (Bld) [#/Vol] 4.5 10*3/uL 1.8-7.7 [facility] Neutrophils/100 WBC Auto (Bl d)Ordered By: Jordy Berry on 12-12-2022 Neutrophils/100 WBC (Bld) 67.2 % . [facility] Nitrite Test strip Ql (U)Ord ered By: Jordy Berry on 12-12-2022 Nitrite Ql (U) Negative Negative [facility] No Panel InformationOrdered By: Jordy Berry on 12-12-2022 Estimated GFR () > 60 mL/Min [facility] Comment on above: GFR estimated refere nce range: According to KDOQI guidelines, <60 ml/min/1.73m2 is sufficient to diagnose a patient with chronic kidney disease. Pharmacy Creatinine Clearance (Chem 40.92 [facility] Nucleated erythrocytes [Pres ence] in Blood by Automated countOrdered By: Jordy Berry on 12-12-2022 Nucleated RBC Auto Ql (Bld) 0.2 /100{WBC} 0-0.5 [facility] Platelet mean volume Auto (B ld) [Entitic vol]Ordered By: Jordy Berry on 12-12-2022 Platelet mean volume (Bld) [Entitic vol] 7.4 fL 6.3-10.7 [facility] Platelet poor plasma interna tional normalized ratio (INR) by coagulation assay (relatOrdered By: Jordy Berry on 12-12-2022 INR Coag (PPP) [Relative time] 1.1 {INR} [facility] Comment on above: INR Therapeutic Rang e [...] 12-12-2022 Platelets (Bld) [#/Vol] 204 10*3/uL 150-450 [facility] Potassium [Moles/volume] in Serum or PlasmaOrdered By: Jordy Berry on 12-12-2022 Potassium [Moles/Vol] 4.2 mmol/L 3.5-5.1 [facility] Protein Auto test strip (U) [Mass/Vol]Ordered By: Jordy Berry on 12-12-2022 Protein (U) [Mass/Vol] Negative Negative [facility] RBC Auto (Bld) [#/Vol]Ordere d By: Jordy Berry on 12-12-2022 RBC (Bld) [#/Vol] 4.63 10*6/uL 3.60-5.00 [facility] Serum or plasma anion gap de terminationOrdered By: Jordy Berry on 12-12-2022 Anion gap [Moles/Vol] 12.2 mmol/L 6.0-15.0 [facility] Serum or plasma creatine kin ase MB (CKMB)/total creatine kinase (CK) ratio by calculaOrdered By: Jordy Berry on 12-12-2022 CK.MB Calc [Catalytic fraction] 3.9 % 0.00-2.50 [facility] Sodium [Moles/volume] in Ser um or PlasmaOrdered By: Jordy Berry on 12-12-2022 Sodium [Moles/Vol] 127 mmol/L 136-[address] [facility] Specific gravity Auto test s trip (U) [Rel density]Ordered By: Jordy Berry on 12-12-2022 Specific gravity (U) [Rel density] 1.005 1.001-1.03 0 [facility] Squamous epithelial cells de tection in urine sediment by light microscopyOrdered By: Jordy Berry on 12-12-2022 Epithelial cells.squamous LM Ql (Urine sed) 3-4 [HPF] 0-2 [facility] Troponin I.cardiac [Mass/vol ume] in Serum or Plasma by High sensitivity methodOrdered By: Jordy Berry on 12-12-2022 Troponin I.cardiac High sensitivity method [Mass/Vol] < 3 pg/mL 0-15 [facility] Urea nitrogen [Mass/volume] in Serum or PlasmaOrdered By: Jordy Berry on 12-12-2022 Urea nitrogen [Mass/Vol] 11 mg/dL 9-23 [facility] Urine bacteria detection by automated methodOrdered By: Jordy Berry on 12-12-2022 Bacteria Auto Ql (U) None seen None Seen [facility] Urine clarity by refractomet ry automatedOrdered By: Jordy Berry on 12-12-2022 Clarity Refractometry automated (U) Clear Clear [facility] Urine glucose measurement by automated test strip (mass/volume)Ordered By: Jordy Berry on 12-12-2022 Glucose Auto test strip (U) [Mass/Vol] Normal mg/dL Normal [facility] Urine hemoglobin detection b y automated test stripOrdered By: Jordy Berry on 12-12-2022 Hemoglobin Auto test strip Ql (U) Negative Negative [facility] Urine leukocyte esterase det ection by automated test stripOrdered By: Jordy Berry on 12-12-2022 Leukocyte esterase Auto test strip Ql (U) 1+ Negative [facility] Urobilinogen Auto test strip (U) [Mass/Vol]Ordered By: Jordy Berry on 12-12-2022 Urobilinogen (U) [Mass/Vol] Normal mg/dL Normal [facility] WBC Auto (Bld) [#/Vol]Ordere d By: Jordy Berry on 12-12-2022 WBC (Bld) [#/Vol] 6.7 10*3/uL 3.8-11.[address] [facility] pH Auto test strip (U)Ordere d By: Jordy Berry on 12-12-2022 pH (U) 6.5 [pH] 5.0-9.0 [facility] Activated partial thrombopla stin time (aPTT) in platelet poor plasma by coagulation aOrdered By: Haile Bruner on 11-14-2022 aPTT Coag (PPP) [Time] 30.2 s 25.1-36.5 [facility] Basophils Auto (Bld) [#/Vol] Ordered By: Haile Bruner on 11-14-2022 Basophils (Bld) [#/Vol] 0.1 10*3/uL 0.0-0.2 [facility] Basophils/100 WBC Auto (Bld) Ordered By: Haile Bruner on 11-14-2022 Basophils/100 WBC (Bld) 1.1 % . [facility] Calcium [Mass/volume] in Ser um or PlasmaOrdered By: Haile Bruner on 11-14-2022 Calcium [Mass/Vol] 9.9 mg/dL 8.2-10.[address] [facility] Carbon dioxide, total [Moles /volume] in Serum or PlasmaOrdered By: Haile Bruner on 11-14-2022 CO2 [Moles/Vol] 26.6 mmol/L 22.0-30.0 [facility] Chloride [Moles/volume] in S maylin or PlasmaOrdered By: Haile Bruner on 11-14-2022 Chloride [Moles/Vol] 90 mmol/L 95-114 [facility] Creatine kinase [Enzymatic a ctivity/volume] in Serum or PlasmaOrdered By: Haile Bruner on 11-14-2022 CK [Catalytic activity/Vol] 46 U/L 22-269 [facility] Creatine kinase.MB [Mass/vol ume] in Serum or PlasmaOrdered By: Haile Bruner on 11-14-2022 CK.MB [Mass/Vol] 1.7 ng/mL 0.6-6.3 [facility] Creatinine and Glomerular fi ltration rate.predicted panel (S/P/Bld)Ordered By: Haile Bruner on 11-14-2022 Creatinine [Mass/Vol] 0.54 mg/dL 0.44-1.03 [facility] Eosinophils Auto (Bld) [#/Vo l]Ordered By: Haile Bruner on 11-14-2022 Eosinophils (Bld) [#/Vol] 0.2 10*3/uL 0.0-0.45 [facility] Eosinophils/100 WBC Auto (Bl d)Ordered By: Haile Bruner on 11-14-2022 Eosinophils/100 WBC (Bld) 3.0 % . [facility] Erythrocyte distribution wid th Auto (RBC) [Ratio]Ordered By: Haile Bruner on 11-14-2022 Erythrocyte distribution width (RBC) [Ratio] 13.1 % 11.9-15.3 [facility] Estimated glomerular filtrat ion rate (GFR) non- AmericanOrdered By: Haile Bruner on 11-14-2022 GFR/1.73 sq M.predicted among non-blacks MDRD (S/P/Bld) [Vol rate/Area] > 60 mL/Min [facility] Glucose [Mass/volume] in Ser um or PlasmaOrdered By: Haile Bruner on 11-14-2022 Glucose [Mass/Vol] 101 mg/dL 70-[address] [facility] Comment on above: ADA recommended refe rence rangeRandom Glucose Reference Range is dependent on time and content of last meal. Glucose of more than 200 mg/dL in a nonstressed, ambulatory subject supports the diagnosis of Diabetes Mellitus. Hematocrit Auto (Bld) [Volum e fraction]Ordered By: Haile Bruner on 11-14-2022 Hematocrit (Bld) [Volume fraction] 36.3 % 34.0-46.4 [facility] Hemoglobin [Mass/volume] in BloodOrdered By: Haile Bruner on 11-14-2022 Hemoglobin (Bld) [Mass/Vol] 12.4 g/dL 11.8-15.4 [facility] Laboratory - Chemistry and C hemistry - challengeOrdered By: Haile Bruner on 11-14-2022 Natriuretic peptide B (Bld) [Mass/Vol] 79.0 pg/mL 5-100 [facility] Laboratory - CoagulationOrde red By: Haile Bruner on 11-14-2022 PT Coag (PPP) [Time] 12.9 s 9.0-12.9 [facility] Leukocytes [#/volume] correc ryanne for nucleated erythrocytes in Blood by Automated counOrdered By: Haile Bruner on 11-14-2022 WBC corrected for nucl RBC Auto (Bld) [#/Vol] 6.7 10*3/uL 3.8-11.6 [facility] Lymphocytes Auto (Bld) [#/Vo l]Ordered By: Haile Bruner on 11-14-2022 Lymphocytes (Bld) [#/Vol] 1.6 10*3/uL 1.00-4.8 [facility] Lymphocytes/100 WBC Auto (Bl d)Ordered By: Haile Bruner on 11-14-2022 Lymphocytes/100 WBC (Bld) 23.2 % . [facility] MCH Auto (RBC) [Entitic mass ]Ordered By: Haile Bruner on 11-14-2022 MCH (RBC) [Entitic mass] 28.7 pg 24.7-34.3 [facility] MCHC Auto (RBC) [Mass/Vol]Or dered By: Haile Bruner on 11-14-2022 MCHC (RBC) [Mass/Vol] 34.1 g/dL 32.0-35.0 [facility] MCV Auto (RBC) [Entitic vol] Ordered By: Haile Bruner on 11-14-2022 MCV (RBC) [Entitic vol] 84.2 fL 80-100 [facility] Monocyte distribution width [Entitic volume] in Blood by AutomatedOrdered By: Haile Bruner on 11-14-2022 Monocyte distribution width Auto (Bld) [Entitic vol] 14.97 % 0.00-20.00 [facility] Monocytes Auto (Bld) [#/Vol] Ordered By: Haile Bruner on 11-14-2022 Monocytes (Bld) [#/Vol] 0.5 10*3/uL 0.0-0.8 [facility] Monocytes/100 WBC Auto (Bld) Ordered By: Haile Bruner on 11-14-2022 Monocytes/100 WBC (Bld) 7.9 % . [facility] Neutrophils Auto (Bld) [#/Vo l]Ordered By: Haile Bruner on 11-14-2022 Neutrophils (Bld) [#/Vol] 4.4 10*3/uL 1.8-7.7 [facility] Neutrophils/100 WBC Auto (Bl d)Ordered By: Haile Bruner on 11-14-2022 Neutrophils/100 WBC (Bld) 64.8 % . [facility] No Panel InformationOrdered By: Haile Bruner on 11-14-2022 Estimated GFR () > 60 mL/Min [facility] Comment on above: GFR estimated refere nce range: According to KDOQI guidelines, <60 ml/min/1.73m2 is sufficient to diagnose a patient with chronic kidney disease. Pharmacy Creatinine Clearance (Chem 42.27 [facility] Nucleated erythrocytes [Pres ence] in Blood by Automated countOrdered By: Haile Bruner on 11-14-2022 Nucleated RBC Auto Ql (Bld) 0.1 /100{WBC} 0-0.5 [facility] Platelet mean volume Auto (B ld) [Entitic vol]Ordered By: Haile Bruner on 11-14-2022 Platelet mean volume (Bld) [Entitic vol] 7.3 fL 6.3-10.7 [facility] Platelet poor plasma interna tional normalized ratio (INR) by coagulation assay (relatOrdered By: Haile Bruner on 11-14-2022 INR Coag (PPP) [Relative time] 1.1 {INR} [facility] Comment on above: INR Therapeutic Rang e [...] 4.5 Platelets Auto (Bld) [#/Vol] Ordered By: Haile Bruner on 11-14-2022 Platelets (Bld) [#/Vol] 205 10*3/uL 150-450 [facility] Potassium [Moles/volume] in Serum or PlasmaOrdered By: Haile Bruner on 11-14-2022 Potassium [Moles/Vol] 4.1 mmol/L 3.5-5.1 [facility] RBC Auto (Bld) [#/Vol]Ordere d By: Haile Bruner on 11-14-2022 RBC (Bld) [#/Vol] 4.30 10*6/uL 3.60-5.00 [facility] Serum or plasma anion gap de terminationOrdered By: Haile Bruner on 11-14-2022 Anion gap [Moles/Vol] 14.5 mmol/L 6.0-15.0 [facility] Serum or plasma creatine kin ase MB (CKMB)/total creatine kinase (CK) ratio by calculaOrdered By: Haile Bruner on 11-14-2022 CK.MB Calc [Catalytic fraction] See comment 0.00-2.50 [facility] Comment on above: If the CK is not ord ered, the MBI cannot be calculated. Sodium [Moles/volume] in Ser um or PlasmaOrdered By: Haile Bruner on 11-14-2022 Sodium [Moles/Vol] 127 mmol/L 136-[address] [facility] Troponin I.cardiac [Mass/vol ume] in Serum or Plasma by High sensitivity methodOrdered By: Haile Bruner on 02-01-2023 Troponin I.cardiac High sensitivity method [Mass/Vol] < 3 pg/mL 0-15 [facility] Urea nitrogen [Mass/volume] in Serum or PlasmaOrdered By: Haile Bruner on 11-14-2022 Urea nitrogen [Mass/Vol] 9 mg/dL 9-23 [facility] WBC Auto (Bld) [#/Vol]Ordere d By: Haile Bruner on 11-14-2022 WBC (Bld) [#/Vol] 6.7 10*3/uL 3.8-11.[address] [facility] Automated erythrocytes count in urine sediment (number/area)Ordered By: PROVIDER TEMP on 11-13-2022 RBC Auto (Urine sed) [#/Area] None seen [HPF] 0-4 [facility] Automated leukocytes count i n urine sediment (number/area)Ordered By: PROVIDER TEMP on 11-13-2022 WBC Auto (Urine sed) [#/Area] 1-2 [HPF] 0-4 [facility] Bilirubin Test strip Ql (U)O rdered By: PROVIDER TEMP on 11-13-2022 Bilirubin Ql (U) Negative Negative [facility] Color Auto (U)Ordered By: JOSEPH COPELAND TEMP on 11-13-2022 Color (U) Yellow Yellow [facility] Glucose Glucometer (BldC) [M ass/Vol]Ordered By: Haile Bruner on 11-13-2022 Glucose [Mass/Vol] 113 mg/dL [facility] Comment on above: Random Glucose Refer ence Range is dependent on time and content of last meal. Glucose of more than 200 mg/dL in a nonstressed, ambulatory subject supports the diagnosis of Diabetes Mellitus. Ketones Auto test strip (U) [Mass/Vol]Ordered By: PROVIDER TEMP on 11-13-2022 Ketones (U) [Mass/Vol] Negative Negative [facility] Laboratory - UrinalysisOrder ed By: PROVIDER TEMP on 11-13-2022 Hyaline casts LM Ql (Urine sed) 0-8 [LPF] 0-8 [facility] Nitrite Test strip Ql (U)Ord ered By: PROVIDER TEMP on 11-13-2022 Nitrite Ql (U) Negative Negative [facility] Protein Auto test strip (U) [Mass/Vol]Ordered By: PROVIDER TEMP on 11-13-2022 Protein (U) [Mass/Vol] Negative Negative [facility] Specific gravity Auto test s trip (U) [Rel density]Ordered By: PROVIDER TEMP on 11-13-2022 Specific gravity (U) [Rel density] 1.002 1.001-1.03 0 [facility] Squamous epithelial cells de tection in urine sediment by light microscopyOrdered By: PROVIDER TEMP on 11-13-2022 Epithelial cells.squamous LM Ql (Urine sed) 1-2 [HPF] 0-2 [facility] Urine bacteria detection by automated methodOrdered By: PROVIDER TEMP on 11-13-2022 Bacteria Auto Ql (U) None seen None Seen [facility] Urine clarity by refractomet ry automatedOrdered By: PROVIDER TEMP on 11-13-2022 Clarity Refractometry automated (U) Clear Clear [facility] Urine glucose measurement by automated test strip (mass/volume)Ordered By: PROVIDER TEMP on 11-13-2022 Glucose Auto test strip (U) [Mass/Vol] Normal mg/dL Normal [facility] Urine hemoglobin detection b y automated test stripOrdered By: PROVIDER TEMP on 11-13-2022 Hemoglobin Auto test strip Ql (U) Negative Negative [facility] Urine leukocyte esterase det ection by automated test stripOrdered By: PROVIDER TEMP on 11-13-2022 Leukocyte esterase Auto test strip Ql (U) 1+ Negative [facility] Urobilinogen Auto test strip (U) [Mass/Vol]Ordered By: PROVIDER TEMP on 11-13-2022 Urobilinogen (U) [Mass/Vol] Normal mg/dL Normal [facility] pH Auto test strip (U)Ordere d By: PROVIDER TEMP on 11-13-2022 pH (U) 8.0 [pH] 5.0-9.0 [facility] STOOL CULTUREon 11-09-2022 Campylobacter Culture Final report Normal [facility] Comment on above: Performed By: #### H STROPN, BNP, LIPA, CMP, TSH #### [facility] [address] [address] [address] Alyson Rowley E coli Shiga Toxin EIA Negative Normal Negative [facility] Comment on above: Performed By: #### H STROPN, BNP, LIPA, CMP, TSH #### [facility] [address] [address] [address] Alyson Rowley Result 1 Comment Normal [facility] Comment on above: Result Comment: No S almonella or Shigella recovered. Performed By: #### H STROPN, BNP, LIPA, CMP, TSH #### [facility] [address] [address] [address] Alyson Rowley Result Comment: No C ampylobacter species isolated. Salmonella/Shigella Screen Final report Normal [facility] Comment on above: Performed By: #### H STROPN, BNP, LIPA, CMP, TSH #### [facility] [address] [place] [address] Dr. Alyson Rowley OVA AND PARASITE EXAMINATION on 11-08-2022 Ova + Parasite Exam Final report Normal [facility] Comment on above: Result Comment: Thes e results were obtained using wet preparation(s) and trichrome stained smear. This test does not include testing for Cryptosporidium parvum, Cyclospora, or Microsporidia. Performed By: #### H STROPN, BNP, LIPA, CMP, TSH #### [facility] [address] [place] [address] Dr. Alyson Rowley Result 1 Comment Normal [facility] Comment on above: Result Comment: No o va, cysts, or parasites seen. . One negative specimen does not rule out the possibility of a parasitic infection. Performed By: #### H STROPN, BNP, LIPA, CMP, TSH #### [facility] [address] [address] [address] Alyson Rowley C. DIFF PCRon 11-03-2022 C. DIFFICILE PCR Negative Normal NEGATIVE [facility] Comment on above: Performed By: #### H STROPN, BNP, LIPA, CMP, TSH #### [facility] [address] [address] [address] Alyson Rowley OCC BLD IMMUNO SCREENon 10-15 OCCULT BLOOD Negative Normal NEGATIVE [facility] Comment on above: Performed By: #### H STROPN, BNP, LIPA, CMP, TSH #### [facility] [address] [address] [address] Alyson Rowley US pelvic completeon 023 US pelvic complete [facility] [email or web address] Other US pelvic complete [facility] [employer] Other US pelvic complete [address] [facility] [email or web address] [place] [address] [email or web address] Other US pelvic complete Ultrasound Report [email or web address] Other US pelvic complete Signed [email or web address] Other US pelvic complete Patient: Fiorella Vicente MR#: [id number] [email or web address] Other US pelvic complete 13 [email or web address] Other US pelvic complete : 1940 Acct:[id number] [email or web address] Other US pelvic complete Age/Sex: 82 / F ADM Date: 10/29/22 [email or web address] Other US pelvic complete Loc: Room: Type: [facility] [email or web address] Other US pelvic complete Attending Dr: Clinton Dejesus [facility] [email or web address] Other US pelvic complete Ordering Provider: ALEXIA [facility]JESUS [facility] [email or web address] Other US pelvic complete Date of Service: 10/29/22 [email or web address] Other US pelvic complete [id number] US/US pelvic complete: Pelvic pain [email or web address] Other US pelvic complete Copies to: ALEXIA DEJESUS [email or web address] [email or web address] Other US pelvic complete PELVIC ULTRASOUND [email or web address] Other US pelvic complete CLINICAL DATA: Pelvi c pain with loose stool for the past few months and urinary tract infection. [email or web address] Other US pelvic complete Previous partial hysterectomy. [email or web address] Other US pelvic complete COMPARISON: CT 09/20/2022 [email or web address] Other US pelvic complete The uterus is surgic ally absent. The vaginal cuff, as visualized shows no obvious abnormalities. [email or web address] Other US pelvic complete the kidneys reveals no hydronephrosis or perinephric fluid. [email or web address] Other US pelvic complete U S/ pelvic complete [email or web address] Other pelvic complete IMPRESSION: [email or web address] Other US pelvic complete Negative [email or web address] Other US pelvic complete Impression dictated by: Eloise Lim M.D.10/29/2022 3:30 PM [email or web address] Other US pelvic complete Dictation Location: RADIO-PC-10 [email or web address] Other US pelvic complete Tech: Iris Jazmine [email or web address] Other US pelvic complete Transcribed By: AARON 10/29/22 [facility] [email or web address] Other US pelvic complete Dictated By: Eloise Lim MD 10/29/22 [facility] [email or web address] Other US pelvic complete Signed By: [email or web address] Other US pelvic complete 10/29/[address] [place] [address] [employer] Other Urinalysis - AUTOMATEDon Appearance (U) clear [employer] Other Bilirubin Ql (U) Negative 5 Minutes Other Color (U) yellow [email or web address] Other Glucose Ql (U) Negative [employer] Other Hemoglobin Ql (U) trace-intact [email or web address] Other Ketones Ql (U) Negative [employer] Other Leukocyte esterase Test strip Ql (U) trace [email or web address] Other Nitrite Ql (U) Negative [employer] Other pH (U) 7.0 [pH] [email or web address] Other Protein Ql (U) Negative [employer] Other Specific gravity (U) [Rel density] 1.015 [email or web address] Other Urobilinogen (U) [Mass/Vol] 0.2 mg/dL [email or web address] Other Urinalysis - AUTOMATED [email or web address] Other Urine Cultureon 10-26-2022 Bacteria identified Cx Nom (U) [email or web address] Other Urine culture routineOrdered By: Arely Dasilva on 10-26-2022 Bacteria identified Cx Nom (U) 2 Days [facility] Bacteria identified Cx Nom (U) 2 Days [facility] Urinalysis - AUTOMATEDon Appearance (U) clear [employer] Other Bilirubin Ql (U) Negative 5 Minutes Other Color (U) yellow [email or web address] Other Glucose Ql (U) Negative [employer] Other Hemoglobin Ql (U) Negative [employer] Other Ketones Ql (U) Negative [employer] Other Leukocyte esterase Test strip Ql (U) Negative [email or web address] Other Nitrite Ql (U) Negative [employer] Other pH (U) 7.0 [pH] [email or web address] Other Protein Ql (U) Negative [employer] Other Specific gravity (U) [Rel density] 1.010 [email or web address] Other Urobilinogen (U) [Mass/Vol] 0.2 mg/dL [email or web address] Other Urinalysis - AUTOMATED [email or web address] Other Urine Cultureon 10-08-2022 Bacteria identified Cx Nom (U) [email or web address] Other Urine culture routineOrdered By: ALEXIA DEJESUS on 10-08-2022 Bacteria identified Cx Nom (U) bacilli - 2 Days [facility] Bacteria identified Cx Nom (U) bacilli - 2 Days [facility] Automated erythrocytes count in urine sediment (number/area)Ordered By: PROVIDER TEMP on 09-20-2022 RBC Auto (Urine sed) [#/Area] 0-1 [HPF] 0-4 [facility] Automated leukocytes count i n urine sediment (number/area)Ordered By: PROVIDER TEMP on 09-20-2022 WBC Auto (Urine sed) [#/Area] 20-49 [HPF] 0-4 [facility] Basophils Auto (Bld) [#/Vol] Ordered By: PROVIDER TEMP on 09-20-2022 Basophils (Bld) [#/Vol] 0.0 10*3/uL 0.0-0.2 [facility] Basophils/100 WBC Auto (Bld) Ordered By: PROVIDER TEMP on 09-20-2022 Basophils/100 WBC (Bld) 0.5 % . [facility] Bilirubin Test strip Ql (U)O rdered By: PROVIDER TEMP on 09-20-2022 Bilirubin Ql (U) Negative Negative [facility] Body fluid albumin measureme nt (mass/volume)Ordered By: Maico Carranza on 09-20-2022 Albumin (Body fld) [Mass/Vol] 4.1 g/dL 3.2-5.5 [facility] Color Auto (U)Ordered By: JOSEPH TRAMMELL on 09-20-2022 Color (U) Yellow Yellow [facility] Creatinine and Glomerular fi ltration rate.predicted panel (S/P/Bld)Ordered By: Maico Carranza on 09-20-2022 Creatinine [Mass/Vol] 0.73 mg/dL 0.44-1.03 [facility] Direct bilirubin measurement Ordered By: Maico Carranza on 09-20-2022 Bilirubin.direct [Mass/Vol] 0.1 mg/dL 0.0-0.4 [facility] Eosinophils Auto (Bld) [#/Vo l]Ordered By: PROVIDER TEMP on 09-20-2022 Eosinophils (Bld) [#/Vol] 0.2 10*3/uL 0.0-0.45 [facility] Eosinophils/100 WBC Auto (Bl d)Ordered By: PROVIDER TEMP on 09-20-2022 Eosinophils/100 WBC (Bld) 3.1 % . [facility] Erythrocyte distribution wid th Auto (RBC) [Ratio]Ordered By: PROVIDER TEMP on 09-20-2022 Erythrocyte distribution width (RBC) [Ratio] 13.8 % 11.9-15.3 [facility] Estimated glomerular filtrat ion rate (GFR) non- AmericanOrdered By: Maico Carranza on 09-20-2022 GFR/1.73 sq M.predicted among non-blacks MDRD (S/P/Bld) [Vol rate/Area] > 60 mL/Min [facility] Globulin Calc (S) [Mass/Vol] Ordered By: Maico Carranza on 09-20-2022 Globulin (S) [Mass/Vol] 2.7 g/dL [facility] Hematocrit Auto (Bld) [Volum e fraction]Ordered By: PROVIDER TEMP on 09-20-2022 Hematocrit (Bld) [Volume fraction] 39.3 % 34.0-46.4 [facility] Hemoglobin [Mass/volume] in BloodOrdered By: PROVIDER TEMP on 09-20-2022 Hemoglobin (Bld) [Mass/Vol] 13.2 g/dL 11.8-15.4 [facility] Ketones Auto test strip (U) [Mass/Vol]Ordered By: PROVIDER TEMP on 09-20-2022 Ketones (U) [Mass/Vol] Negative Negative [facility] Laboratory - Chemistry and C hemistry - challengeOrdered By: Maico Carranza on 09-20-2022 Lipase [Catalytic activity/Vol] 35.0 U/L 22-51 [facility] Laboratory - UrinalysisOrder ed By: PROVIDER TEMP on 09-20-2022 Hyaline casts LM Ql (Urine sed) 0-8 [LPF] 0-8 [facility] Leukocytes [#/volume] correc ryanne for nucleated erythrocytes in Blood by Automated counOrdered By: PROVIDER TEMP on 09-20-2022 WBC corrected for nucl RBC Auto (Bld) [#/Vol] 6.5 10*3/uL 3.8-11.6 [facility] Lymphocytes Auto (Bld) [#/Vo l]Ordered By: PROVIDER TEMP on 09-20-2022 Lymphocytes (Bld) [#/Vol] 1.7 10*3/uL 1.00-4.8 [facility] Lymphocytes/100 WBC Auto (Bl d)Ordered By: PROVIDER TEMP on 09-20-2022 Lymphocytes/100 WBC (Bld) 26.9 % . [facility] MCH Auto (RBC) [Entitic mass ]Ordered By: PROVIDER TEMP on 09-20-2022 MCH (RBC) [Entitic mass] 28.7 pg 24.7-34.3 [facility] MCHC Auto (RBC) [Mass/Vol]Or dered By: PROVIDER TEMP on 09-20-2022 MCHC (RBC) [Mass/Vol] 33.5 g/dL 32.0-35.0 [facility] MCV Auto (RBC) [Entitic vol] Ordered By: PROVIDER TEMP on 09-20-2022 MCV (RBC) [Entitic vol] 85.5 fL 80-100 [facility] Monocyte distribution width [Entitic volume] in Blood by AutomatedOrdered By: PROVIDER TEMP on 09-20-2022 Monocyte distribution width Auto (Bld) [Entitic vol] 15.13 % 0.00-20.00 [facility] Monocytes Auto (Bld) [#/Vol] Ordered By: PROVIDER TEMP on 09-20-2022 Monocytes (Bld) [#/Vol] 0.6 10*3/uL 0.0-0.8 [facility] Monocytes/100 WBC Auto (Bld) Ordered By: PROVIDER TEMP on 09-20-2022 Monocytes/100 WBC (Bld) 9.5 % . [facility] Neutrophils Auto (Bld) [#/Vo l]Ordered By: PROVIDER TEMP on 09-20-2022 Neutrophils (Bld) [#/Vol] 3.9 10*3/uL 1.8-7.7 [facility] Neutrophils/100 WBC Auto (Bl d)Ordered By: PROVIDER TEMP on 09-20-2022 Neutrophils/100 WBC (Bld) 60.0 % . [facility] Nitrite Test strip Ql (U)Ord ered By: PROVIDER TEMP on 09-20-2022 Nitrite Ql (U) Negative Negative [facility] No Panel InformationOrdered By: Maico Carranza on 09-20-2022 Estimated GFR () > 60 mL/Min [facility] Comment on above: GFR estimated refere nce range: According to KDOQI guidelines, <60 ml/min/1.73m2 is sufficient to diagnose a patient with chronic kidney disease. Pharmacy Creatinine Clearance (Chem 40.83 [facility] Nucleated erythrocytes [Pres ence] in Blood by Automated countOrdered By: PROVIDER TEMP on 09-20-2022 Nucleated RBC Auto Ql (Bld) 0.0 /100{WBC} 0-0.5 [facility] Platelet mean volume Auto (B ld) [Entitic vol]Ordered By: PROVIDER TEMP on 09-20-2022 Platelet mean volume (Bld) [Entitic vol] 7.5 fL 6.3-10.7 [facility] Platelets Auto (Bld) [#/Vol] Ordered By: PROVIDER TEMP on 09-20-2022 Platelets (Bld) [#/Vol] 211 10*3/uL 150-450 [facility] Protein Auto test strip (U) [Mass/Vol]Ordered By: PROVIDER TEMP on 09-20-2022 Protein (U) [Mass/Vol] Negative Negative [facility] Protein [Mass/volume] in Ser um or PlasmaOrdered By: Maico Carranza on 09-20-2022 Protein [Mass/Vol] 6.8 g/dL 6.1-7.9 [facility] RBC Auto (Bld) [#/Vol]Ordere d By: PROVIDER TEMP on 09-20-2022 RBC (Bld) [#/Vol] 4.60 10*6/uL 3.60-5.00 [facility] Serum or plasma alanine gorman otransferase measurement without P-5'-P (enzymatic activiOrdered By: Maico Carranza on 09-20-2022 ALT No additional P-5'-P [Catalytic activity/Vol] 21 U/L 10-60 [facility] Serum or plasma albumin/glob ulin mass ratioOrdered By: Maico Carranza on 09-20-2022 Albumin/Globulin [Mass ratio] 1.5 {ratio} [facility] Serum or plasma alkaline sarita sphatase measurement (enzymatic activity/volume)Ordered By: Maico Carranza on 09-20-2022 ALP [Catalytic activity/Vol] 43 U/L 32-92 [facility] Serum or plasma anion gap de terminationOrdered By: Maico Carranza on 09-20-2022 Anion gap [Moles/Vol] 10.2 mmol/L 6.0-15.0 [facility] Serum or plasma aspartate am inotransferase measurement (enzymatic activity/volume)Ordered By: Maico Carranza on 09-20-2022 AST [Catalytic activity/Vol] 27 U/L 10-42 [facility] Serum or plasma calcium luna urement (mass/volume)Ordered By: Maico Carranza on 09-20-2022 Calcium [Mass/Vol] 9.8 mg/dL 8.2-10.[address] [facility] Serum or plasma chloride haider surement (moles/volume)Ordered By: Maico Carranza on 09-20-2022 Chloride [Moles/Vol] 97 mmol/L 95-114 [facility] Serum or plasma glucose luna urement (mass/volume)Ordered By: Maico Carranza on 09-20-2022 Glucose [Mass/Vol] 132 mg/dL 70-[address] [facility] Comment on above: ADA recommended refe rence rangeRandom Glucose Reference Range is dependent on time and content of last meal. Glucose of more than 200 mg/dL in a nonstressed, ambulatory subject supports the diagnosis of Diabetes Mellitus. Serum or plasma non-glucuron idated bilirubin measurement (mass/volume)Ordered By: Maico Carranza on 09-20-2022 Bilirubin.indirect [Mass/Vol] 0.4 mg/dL [facility] Serum or plasma potassium me asurement (moles/volume)Ordered By: Maico Carranza on 09-20-2022 Potassium [Moles/Vol] 3.7 mmol/L 3.5-5.1 [facility] Serum or plasma sodium measu rement (moles/volume)Ordered By: Maico Carranza on 09-20-2022 Sodium [Moles/Vol] 134 mmol/L 136-[address] [facility] Serum or plasma total biliru bin measurement (mass/volume)Ordered By: Maico Carranza on 09-20-2022 Bilirubin [Mass/Vol] 0.5 mg/dL 0.3-1.2 [facility] Serum or plasma total carbon dioxide measurement (moles/volume)Ordered By: Maico Carranza on 09-20-2022 CO2 [Moles/Vol] 30.5 mmol/L 22.0-30.0 [facility] Serum or plasma urea nitroge n measurement (mass/volume)Ordered By: Maico Carranza on 09-20-2022 Urea nitrogen [Mass/Vol] 11 mg/dL 9-23 [facility] Specific gravity Auto test s trip (U) [Rel density]Ordered By: PROVIDER TEMP on 09-20-2022 Specific gravity (U) [Rel density] 1.012 1.001-1.03 0 [facility] Squamous epithelial cells de tection in urine sediment by light microscopyOrdered By: PROVIDER TEMP on 09-20-2022 Epithelial cells.squamous LM Ql (Urine sed) 5-9 [HPF] 0-2 [facility] Troponin I.cardiac [Mass/vol ume] in Serum or Plasma by High sensitivity methodOrdered By: Sergio Lopez on 09-20-2022 Troponin I.cardiac High sensitivity method [Mass/Vol] < 3 pg/mL 0-15 [facility] Urine bacteria detection by automated methodOrdered By: PROVIDER TEMP on 09-20-2022 Bacteria Auto Ql (U) None seen None Seen [facility] Urine clarity by refractomet ry automatedOrdered By: PROVIDER TEMP on 09-20-2022 Clarity Refractometry automated (U) Clear Clear [facility] Urine culture routineOrdered By: PROVIDER TEMP on 09-20-2022 Bacteria identified Cx Nom (U) 2 Days [facility] Urine glucose measurement by automated test strip (mass/volume)Ordered By: PROVIDER TEMP on 09-20-2022 Glucose Auto test strip (U) [Mass/Vol] Normal mg/dL Normal [facility] Urine hemoglobin detection b y automated test stripOrdered By: PROVIDER TEMP on 09-20-2022 Hemoglobin Auto test strip Ql (U) Negative Negative [facility] Urine leukocyte esterase det ection by automated test stripOrdered By: PROVIDER TEMP on 09-20-2022 Leukocyte esterase Auto test strip Ql (U) 3+ Negative [facility] Urobilinogen Auto test strip (U) [Mass/Vol]Ordered By: PROVIDER TEMP on 09-20-2022 Urobilinogen (U) [Mass/Vol] Normal mg/dL Normal [facility] WBC Auto (Bld) [#/Vol]Ordere d By: PROVIDER TEMP on 09-20-2022 WBC (Bld) [#/Vol] 6.5 10*3/uL 3.8-11.[address] [facility] pH Auto test strip (U)Ordere d By: PROVIDER TEMP on 09-20-2022 pH (U) 6.0 [pH] 5.0-9.0 [facility] FERRITINon 09-11-2022 Ferritin [Mass/Vol] 61.0 ng/mL Normal 8.0-252.0 [facility] Comment on above: Performed By: #### H STROPN, BNP, LIPA, CMP, TSH #### [facility] [address] [address] [address] Alyson Rowley IRON AND TIBCon 09-11-2022 % SATURATION 19.0 % Normal [facility] Comment on above: Performed By: #### H STROPN, BNP, LIPA, CMP, TSH #### [facility] [address] [address] [address] Alyson Rowley Iron [Mass/Vol] 70.0 ug/dL Normal 50.0-170.0 [facility] Comment on above: Performed By: #### H STROPN, BNP, LIPA, CMP, TSH #### [facility] [address] [address] [address] Alyson Rowley TIBC DIRECT 368.0 ug/dL Normal 250.0-450. 0 [facility] Comment on above: Performed By: #### H STROPN, BNP, LIPA, CMP, TSH #### [facility] [address] [address] [address] Alyson Rowley PROF 14(COMP METB)on 022 Albumin [Mass/Vol] 3.9 g/dL Normal 3.4-5.0 [facility] Comment on above: Performed By: #### C MP ####[facility] [address] [address]Dr. Alyson Rowley Albumin/Globulin [Mass ratio] 1.2 {ratio} Normal [facility] Comment on above: Performed By: #### C MP ####[facility] [address] [address]Dr. Alyson oRwley ALP [Catalytic activity/Vol] 55 U/L Normal 46-116 [facility] Comment on above: Performed By: #### C MP ####[facility] [address] [address]Dr. Alyson Rowley ALT [Catalytic activity/Vol] 26 U/L Normal 14-59 [facility] Comment on above: Performed By: #### C MP ####[facility] [address] [address]Dr. Alyson Rowley Anion gap [Moles/Vol] 8.2 mmol/L Normal [facility] Comment on above: Performed By: #### C MP ####[facility] [address] [address]Dr. Alyson Rowley AST [Catalytic activity/Vol] 17 U/L Normal 15-37 [facility] Comment on above: Performed By: #### C MP ####[facility] [address] [address]Dr. Alyson Rowley Bilirubin [Mass/Vol] 0.4 mg/dL Normal 0.2-1.0 [facility] Comment on above: Performed By: #### C MP ####[facility] [address] [place], [place] [address]Dr. Alyson Rowley Calcium [Mass/Vol] 9.6 mg/dL Normal 8.5-10.1 [facility] Comment on above: Performed By: #### C MP ####[facility] [address] [place], [place] [address]Dr. Alyson Rowley Chloride [Moles/Vol] 97 mmol/L Critically low 98-107 [facility] Comment on above: Performed By: #### C MP ####[facility] [address] [place], [place] [address]Dr. Alyson Rowley CO2 [Moles/Vol] 33.0 mmol/L Critically high 21.0-32.0 [facility] Comment on above: Performed By: #### C MP ####[facility] [address] [place], [place] [address]Dr. Alyson Amrik Creatinine [Mass/Vol] 0.63 mg/dL Normal 0.55-1.02 [facility] Comment on above: Performed By: #### C MP ####[facility] On[address] [place], [place] [address]Dr. Felipoonam Amrik EGFR-AF [place] >60 Normal >=60 [facility] Comment on above: Performed By: #### C MP ####[facility] [address] [place], [place] [address]Dr. Alyson Rowley EGFR-NON AF [place] >60 Normal >=60 [facility] Comment on above: Performed By: #### C MP ####[facility] [address] [place], [place] [address]Dr. Alyson Rowley Globulin (S) [Mass/Vol] 3.3 g/dL Normal [facility] Comment on above: Performed By: #### C MP ####[facility] [address] [place], [place] [address]Dr. Alyson Rowley Glucose [Mass/Vol] 98 mg/dL Normal 74-106 [facility] Comment on above: Performed By: #### C MP ####[facility] [address] [place], [place] [address]Dr. Alyson Rowley Potassium [Moles/Vol] 4.2 mmol/L Normal 3.5-5.1 [facility] Comment on above: Performed By: #### C MP ####[facility] [address] [place], [place] [address]Dr. Alyson Rowley Protein [Mass/Vol] 7.2 g/dL Normal 6.4-8.2 [facility] Comment on above: Performed By: #### C MP ####[facility] [address] [place], [place] [address]Dr. Alyson Rowley Sodium [Moles/Vol] 134 mmol/L Critically low 136-145 [facility] Comment on above: Performed By: #### C MP ####[facility] [address] [place], [place] [address]Dr. Alyson Rowley Urea nitrogen [Mass/Vol] 14.0 mg/dL Normal 7.0-18.0 [facility] Comment on above: Performed By: #### C MP ####[facility] [address] [place], [place] [address]Dr. Alyson Rowley Urea nitrogen/Creatinine [Mass ratio] 22.2 mg/mg Normal [facility] Comment on above: Performed By: #### C MP ####[facility] X[address] [place], [place] [address]Dr. Alyson Rowley VITAMIN B12on 09-11-2022 Cobalamin (Vitamin B12) [Mass/Vol] 664.0 pg/mL Normal 193.0-986. 0 [facility] Comment on above: Performed By: #### H STROPN, BNP, LIPA, CMP, TSH #### [facility] [address] [place] [address] Dr. Alyson Rowley VITAMIN D 25 OHon 09-11-2022 VIT D 25-OH 81.3 ng/mL Normal [facility] Comment on above: Performed By: #### H STROPN, BNP, LIPA, CMP, TSH #### [facility] [address] [place] [address] Dr. Alyson Rowley VIT D RANGES SEE BELOW Normal [facility] Comment on above: Result Comment: <20 ng/mL Vit D deficient 20 - <30 ng/mL Vit D insufficient 30 - 100 ng/mL Vit D sufficient >100 ng/mL Potential Toxicity Performed By: #### H STROPN, BNP, LIPA, CMP, TSH #### [facility] [address] [place] [address] Dr. Alyson Rowley CBC AUTO DIFFon 09-02-2022 BASO # 0.0 103/ul Normal 0.0-0.1 [facility] Comment on above: Performed By: #### H STROPN, BNP, LIPA, CMP, TSH #### [facility] [address] [place] [address] Dr. Alyson Rowley Basophils/100 WBC (Bld) 0.8 % Normal 0.2-2.0 [facility] Comment on above: Performed By: #### H STROPN, BNP, LIPA, CMP, TSH #### [facility] [address] [place] [address] Dr. Alyson Rowley EO # 0.2 103/ul Normal 0.0-0.7 [facility] Comment on above: Performed By: #### H STROPN, BNP, LIPA, CMP, TSH #### [facility] [address] [place] [address] Dr. Alyson Rowley Eosinophils/100 WBC (Bld) 4.8 % Normal 0.9-7.0 [facility] Comment on above: Performed By: #### H STROPN, BNP, LIPA, CMP, TSH #### [facility] [address] [place] [address] Dr. Alyson Rowley Erythrocyte distribution width (RBC) [Ratio] 13.2 % Normal 11.0-15.0 [facility] Comment on above: Performed By: #### H STROPN, BNP, LIPA, CMP, TSH #### [facility] [address] [place] [address] Dr. Alyson Rowley Hematocrit (Bld) [Volume fraction] 39.1 % Normal 36.0-48.0 [facility] Comment on above: Performed By: #### H STROPN, BNP, LIPA, CMP, TSH #### [facility] [address] [address] [address] Alyson Rowley Hemoglobin (Bld) [Mass/Vol] 13.2 g/dL Normal 12.0-16.0 [facility] Comment on above: Performed By: #### H STROPN, BNP, LIPA, CMP, TSH #### [facility] [address] [place] [address] Dr. Alyson Rowley IG # 0.00 10e3/ul Normal 0.00-0.03 [facility] Comment on above: Performed By: #### H STROPN, BNP, LIPA, CMP, TSH #### [facility] [address] [place] [address] Dr. Alyson Rowley IG % 0.0 % Normal 0.0-0.5 [facility] Comment on above: Performed By: #### H STROPN, BNP, LIPA, CMP, TSH #### [facility] [address] [place] [address] Dr. Alyson Rowley LYMPH # 1.2 103/ul Normal 1.2-3.8 [facility] Comment on above: Performed By: #### H STROPN, BNP, LIPA, CMP, TSH #### [facility] [address] [address] [address] Alyson Rowley Lymphocytes/100 WBC (Bld) 23.2 % Normal 20.5-60.0 [facility] Comment on above: Performed By: #### H STROPN, BNP, LIPA, CMP, TSH #### [facility] [address] [address] [address] Alyson Rowley MANUAL DIFF REQ NO Normal [facility] Comment on above: Performed By: #### H STROPN, BNP, LIPA, CMP, TSH #### [facility] [address] [place] [address] Dr. Alyson Rowley MCH (RBC) [Entitic mass] 29.0 pg Normal 26.7-34.0 [facility] Comment on above: Performed By: #### H STROPN, BNP, LIPA, CMP, TSH #### [facility] [address] [place] [address] Dr. Alyson Rowley MCHC (RBC) [Mass/Vol] 33.8 g/dL Normal 29.9-35.2 [facility] Comment on above: Performed By: #### H STROPN, BNP, LIPA, CMP, TSH #### [facility] [address] [place] [address] Dr. Alyson Rowley MCV (RBC) [Entitic vol] 85.9 fL Normal 81.0-99.0 [facility] Comment on above: Performed By: #### H STROPN, BNP, LIPA, CMP, TSH #### [facility] [address] [place] [address] Dr. Alyson Rowley MONO # 0.4 103/ul Normal 0.3-0.8 [facility] Comment on above: Performed By: #### H STROPN, BNP, LIPA, CMP, TSH #### [facility] [address] [place] [address] Dr. Alyson Rowley Monocytes/100 WBC (Bld) 7.0 % Normal 1.7-12.0 [facility] Comment on above: Performed By: #### H STROPN, BNP, LIPA, CMP, TSH #### [facility] [address] [place] [address] Dr. Alyson Rowley NEUT # 3.2 103/ul Normal 1.4-6.5 [facility] Comment on above: Performed By: #### H STROPN, BNP, LIPA, CMP, TSH #### [facility] [address] [place] [address] Dr. Alyson Rowley Neutrophils/100 WBC (Bld) 64.2 % Normal 43.0-75.0 [facility] Comment on above: Performed By: #### H STROPN, BNP, LIPA, CMP, TSH #### [facility] [address] [address] [address] Alyson Rowley Platelet mean volume (Bld) [Entitic vol] 9.3 fL Critically low 9.5-13.5 [facility] Comment on above: Performed By: #### H STROPN, BNP, LIPA, CMP, TSH #### [facility] [address] [address] [address] Alyson Rowley PLT 201 103/ul Normal 150-450 [facility] Comment on above: Performed By: #### H STROPN, BNP, LIPA, CMP, TSH #### [facility] [address] [address] [address] Alyson Rowley RBC 4.55 106/ul Normal 4.20-5.40 [facility] Comment on above: Performed By: #### H STROPN, BNP, LIPA, CMP, TSH #### [facility] [address] [address] [address] Alyson Rowley WBC 5.0 103/ul Normal 4.0-11.0 [facility] Comment on above: Performed By: #### H STROPN, BNP, LIPA, CMP, TSH #### [facility] [address] [place] [address] ABD/PELVIS WO CONon [...] without diverticulitis or appendicitis. Electronically authenticated by: [employer] Date: 2022-09-02 15:12 Normal [facility] ER URINE PROFILEon 2 Bilirubin Ql (U) Negative Normal NEGATIVE [facility] Comment on above: Performed By: #### H STROPN, BNP, LIPA, CMP, TSH #### [facility] [address] [address] [address] Alyson Rowley Clarity (U) CLEAR Normal CLEAR [facility] Comment on above: Performed By: #### H STROPN, BNP, LIPA, CMP, TSH #### [facility] [address] [address] [address] Alyson Rowley Color (U) LT. YELLOW Normal YELLOW [facility] Comment on above: Performed By: #### H STROPN, BNP, LIPA, CMP, TSH #### [facility] [address] [address] [address] Alyson Rowley ERUAHD A micrscopic examina tion will be performed if indicated. Normal [facility] Comment on above: Performed By: #### H STROPN, BNP, LIPA, CMP, TSH #### [facility] [address] [address] [address] Alyson Rowley Glucose Ql (U) Negative Normal NEGATIVE [facility] Comment on above: Performed By: #### H STROPN, BNP, LIPA, CMP, TSH #### [facility] [address] [address] [address] Alyson Rowley Hemoglobin Ql (U) Negative Normal NEGATIVE [facility] Comment on above: Performed By: #### H STROPN, BNP, LIPA, CMP, TSH #### [facility] [address] [address] [address] Alyson Rowley Ketones Ql (U) Negative Normal NEGATIVE [facility] Comment on above: Performed By: #### H STROPN, BNP, LIPA, CMP, TSH #### [facility] [address] [place] [address] Dr. Alyson Rowley LEUKOCYTES SMALL Abnormal NEGATIVE [facility] Comment on above: Performed By: #### H STROPN, BNP, LIPA, CMP, TSH #### [facility] [address] [address] [address] Alyson Rowley Nitrite Ql (U) Negative Normal NEGATIVE [facility] Comment on above: Performed By: #### H STROPN, BNP, LIPA, CMP, TSH #### [facility] [address] [address] [address] Alyson Rowley pH (U) 6.5 [pH] Normal 5-9 [facility] Comment on above: Performed By: #### H STROPN, BNP, LIPA, CMP, TSH #### [facility] [address] [address] [address] Alyson Rowley SPEC GRAVITY 1.015 Normal 1.005-<=1. 025 [facility] Comment on above: Performed By: #### H STROPN, BNP, LIPA, CMP, TSH #### [facility] [address] [address] [address] Aylson Rowley UA PROTEIN Negative Normal NEGATIVE/ TRACE [facility] Comment on above: Performed By: #### H STROPN, BNP, LIPA, CMP, TSH #### [facility] [address] [address] [address] Alyson Rowley UR MICRO IND INDICATED Normal [facility] Comment on above: Performed By: #### H STROPN, BNP, LIPA, CMP, TSH #### [facility] [address] [address] [address] Alyson Rowley Urobilinogen Qn (U) 0.2 {Karen'U}/dL Normal 0.2 - 1. 0 [facility] Comment on above: Performed By: #### H STROPN, BNP, LIPA, CMP, TSH #### [facility] [address] [address] [address] Alyson Rowley PROF 14(COMP METB)on 022 Albumin [Mass/Vol] 4.1 g/dL Normal 3.4-5.0 [facility] Comment on above: Performed By: #### C MP ####[facility] [address] [address]DrJulia Rowley Albumin/Globulin [Mass ratio] 1.3 {ratio} Normal [facility] Comment on above: Performed By: #### C MP ####[facility] [address] [address]Dr. Alyson Rowley ALP [Catalytic activity/Vol] 55 U/L Normal 46-116 [facility] Comment on above: Performed By: #### C MP ####[facility] [address] [address]DrJulia Rowley ALT [Catalytic activity/Vol] 29 U/L Normal 14-59 [facility] Comment on above: Performed By: #### C MP ####[facility] [address] [address]DrJulia Rowley Anion gap [Moles/Vol] 7.4 mmol/L Normal [facility] Comment on above: Performed By: #### C MP ####[facility] [address] [address]DrJulia Rowley AST [Catalytic activity/Vol] 23 U/L Normal 15-37 [facility] Comment on above: Performed By: #### C MP ####[facility] [address] [address]Dr. Alyson Rowley Bilirubin [Mass/Vol] 0.4 mg/dL Normal 0.2-1.0 [facility] Comment on above: Performed By: #### C MP ####[facility] [address] [address]Dr. Alyson Rowley Calcium [Mass/Vol] 9.9 mg/dL Normal 8.5-10.1 [facility] Comment on above: Performed By: #### C MP ####[facility] [address] [place], [place] [address]Dr. Alyson Rowley Chloride [Moles/Vol] 98 mmol/L Normal 98-107 [facility] Comment on above: Performed By: #### C MP ####[facility] [address] [place], [place] [address]Dr. Alyson Rowley CO2 [Moles/Vol] 32.6 mmol/L Critically high 21.0-32.0 [facility] Comment on above: Performed By: #### C MP ####[facility] [address] [place], [place] [address]Dr. Alyson Rowley Creatinine [Mass/Vol] 0.62 mg/dL Normal 0.55-1.02 [facility] Comment on above: Performed By: #### C MP ####[facility] [address] [place], [place] [address]Dr. Alyson Rowley EGFR-AF [place] >60 Normal >=60 [facility] Comment on above: Performed By: #### C MP ####[facility] [address] [place], [place] [address]Dr. Alyson Rowley EGFR-NON AF [place] >60 Normal >=60 [facility] Comment on above: Performed By: #### C MP ####[facility] [address] [place], [place] [address]Dr. Alyson Rowley Globulin (S) [Mass/Vol] 3.1 g/dL Normal [facility] Comment on above: Performed By: #### C MP ####[facility] [address] [id number][address] Alyson Rowley Glucose [Mass/Vol] 133 mg/dL Critically high 74-106 [facility] Comment on above: Performed By: #### C MP ####[facility] [address] [place], [place] [address]Lu. Alyson Rowley Potassium [Moles/Vol] 4.0 mmol/L Normal 3.5-5.1 [facility] Comment on above: Performed By: #### C MP ####[facility] [address] [place] [id number]. Alyson Rowley Protein [Mass/Vol] 7.2 g/dL Normal 6.4-8.2 [facility] Comment on above: Performed By: #### C MP ####[facility] [address] [place] [address]Dr. Alyson Rowley Sodium [Moles/Vol] 134 mmol/L Critically low 136-145 [facility] Comment on above: Performed By: #### C MP ####[facility] [address] [place] [id number]. Alyson Rowley Urea nitrogen [Mass/Vol] 12.0 mg/dL Normal 7.0-18.0 [facility] Comment on above: Performed By: #### C MP ####[facility] [address] [place] [id number]. Alyson Rowley Urea nitrogen/Creatinine [Mass ratio] 19.4 mg/mg Normal [facility] Comment on above: Performed By: #### C MP ####[facility] [address] [place] [id number]. Alyson Rowley URINE MICROSCOPIC ONLYon BACTERIA NONE SEEN Normal NONE SEEN [facility] Comment on above: Performed By: #### H STROPN, BNP, LIPA, CMP, TSH #### [facility] [address] [place], [place] [address] Dr. Alyson Rowley Bacteria identified Cx Nom (U) NOT INDICATED Normal [facility] Comment on above: Performed By: #### H STROPN, BNP, LIPA, CMP, TSH #### [facility] [address] [place] [address] [address] Alyson Rowley CAST NONE SEEN Normal NONE SEEN [facility] Comment on above: Performed By: #### H STROPN, BNP, LIPA, CMP, TSH #### [facility] [address] [place] [address] [address] Alyson Rowley Crystals LM Nom (Urine sed) NONE SEEN Normal NONE SEEN [facility] Comment on above: Performed By: #### H STROPN, BNP, LIPA, CMP, TSH #### [facility] [address] [place] [address] [address] Alyson Rowley Epithelial cells LM Ql (Urine sed) FEW Abnormal NONE SEEN /RARE [facility] Comment on above: Performed By: #### H STROPN, BNP, LIPA, CMP, TSH #### [facility] [address] [place] [address] [address] Alyson Rowley MUCOUS NONE SEEN Normal NONE SEEN [facility] Comment on above: Performed By: #### H STROPN, BNP, LIPA, CMP, TSH #### [facility] [address] [address] [address] Alyson Rowley RBC NONE SEEN Abnormal 0-2 [facility] Comment on above: Performed By: #### H STROPN, BNP, LIPA, CMP, TSH #### [facility] [address] [place] [address] [address] Alyson Rowley WBC 0-2 Abnormal NONE SEEN [facility] Comment on above: Performed By: #### H STROPN, BNP, LIPA, CMP, TSH #### [facility] [address] [place] [address] [address] Alyson Rowley CBC AUTO DIFFon 07-24-2022 BASO # 0.0 103/ul Normal 0.0-0.1 [facility] Comment on above: Performed By: #### C BC ####[facility] [address] [place] [address]Dr. Alyson Rowley Basophils/100 WBC (Bld) 0.3 % Normal 0.2-2.0 [facility] Comment on above: Performed By: #### C BC ####[facility] [address] [place] [address]Dr. Alyson Rowley EO # 0.0 103/ul Normal 0.0-0.7 [facility] Comment on above: Performed By: #### C BC ####[facility] [address] [place] [address]Dr. Alyson Rowley Eosinophils/100 WBC (Bld) 0.1 % Critically low 0.9-7.0 [facility] Comment on above: Performed By: #### C BC ####[facility] [address] [place], [place] [address]Dr. Alyson Rowley Erythrocyte distribution width (RBC) [Ratio] 12.6 % Normal 11.0-15.0 [facility] Comment on above: Performed By: #### C BC ####[facility] [address] [place], [place] [address]Dr. Alyson Rowley Hematocrit (Bld) [Volume fraction] 38.4 % Normal 36.0-48.0 [facility] Comment on above: Performed By: #### C BC ####[facility] [address] [place], [place] [address]Dr. Alyson Rowley Hemoglobin (Bld) [Mass/Vol] 12.9 g/dL Normal 12.0-16.0 [facility] Comment on above: Performed By: #### C BC ####[facility] [address] [place], [place] [address]Dr. Alyson Rowley IG # 0.05 10e3/ul Critically high 0.00-0.03 [facility] Comment on above: Performed By: #### C BC ####[facility] [address] [place], [place] [address]Dr. Felipoonam Rowley IG % 0.3 % Normal 0.0-0.5 [facility] Comment on above: Performed By: #### C BC ####[facility] [address] [place], [place] [address]DrJulia Rowley LYMPH # 1.0 103/ul Critically low 1.2-3.8 [facility] Comment on above: Performed By: #### C BC ####[facility] [address] [place] [id number]. Alyson Amrik Lymphocytes/100 WBC (Bld) 6.8 % Critically low 20.5-60.0 [facility] Comment on above: Performed By: #### C BC ####[facility] [address] [place] [address]Dr. Alyson Rowley MANUAL DIFF REQ NO Normal [facility] Comment on above: Performed By: #### C BC ####[facility] [address] [place] [id number]. Alyson Rowley MCH (RBC) [Entitic mass] 28.7 pg Normal 26.7-34.0 [facility] Comment on above: Performed By: #### C BC ####[facility] [address] [place], [place] [address]Dr. Alyson Rowley MCHC (RBC) [Mass/Vol] 33.6 g/dL Normal 29.9-35.2 [facility] Comment on above: Performed By: #### C BC ####[facility] [address] [place], [place] [address]Dr. Alyson Rowley MCV (RBC) [Entitic vol] 85.3 fL Normal 81.0-99.0 [facility] Comment on above: Performed By: #### C BC ####[facility] [address] [place] [address]Dr. Alyson Rowley MONO # 0.9 103/ul Critically high 0.3-0.8 [facility] Comment on above: Performed By: #### C BC ####[facility] [address] [place] [id number]. Alyson Rowley Monocytes/100 WBC (Bld) 5.9 % Normal 1.7-12.0 [facility] Comment on above: Performed By: #### C BC ####[facility] [address] [place], [place] [address]Dr. Alyson Rowley NEUT # 13.2 103/ul Critically high 1.4-6.5 [facility] Comment on above: Performed By: #### C BC ####[facility] [address] [place] [address]Dr. Alyson Rowley Neutrophils/100 WBC (Bld) 86.6 % Critically high 43.0-75.0 [facility] Comment on above: Performed By: #### C BC ####[facility] [address] [place] [phone]. Alyson Rowley Platelet mean volume (Bld) [Entitic vol] 9.0 fL Critically low 9.5-13.5 [facility] Comment on above: Performed By: #### C BC ####[facility] [address] [place] [address]DrJulia Rowley PLT 253 103/ul Normal 150-450 [facility] Comment on above: Performed By: #### C BC ####[facility] [address] [place] [address]DrJulia Rowley RBC 4.50 106/ul Normal 4.20-5.40 [facility] Comment on above: Performed By: #### C BC ####[facility] [address] [place] [phone] Rowley WBC 15.3 103/ul Critically high 4.0-11.0 [facility] Comment on above: Performed By: #### C BC ####[facility] [address] [place] [phone]. Alyson Rowley PROF 14(COMP METB)on 022 Albumin [Mass/Vol] 4.1 g/dL Normal 3.4-5.0 [facility] Comment on above: Performed By: #### H WILFREDO, CMP #### [facility] [address] [address] [address] Alyson Rowley Albumin/Globulin [Mass ratio] 1.3 {ratio} Normal [facility] Comment on above: Performed By: #### H WILFREDO, CMP #### [facility] [address] [address] [address] Alyson Rowley ALP [Catalytic activity/Vol] 53 U/L Normal 46-116 [facility] Comment on above: Performed By: #### H STROPN, CMP #### [facility] [address] [address] [address] Alyson Rowley ALT [Catalytic activity/Vol] 24 U/L Normal 14-59 [facility] Comment on above: Performed By: #### H STROPN, CMP #### [facility] [address] [address] [address] Alyson Rowley Anion gap [Moles/Vol] 11.4 mmol/L Normal [facility] Comment on above: Performed By: #### H STROPN, CMP #### [facility] [address] [place] [address] Dr. Alyson Rowley AST [Catalytic activity/Vol] 18 U/L Normal 15-37 [facility] Comment on above: Performed By: #### H STROPN, CMP #### [facility] [address] [place] [address] Dr. Alyson Rowley Bilirubin [Mass/Vol] 0.7 mg/dL Normal 0.2-1.0 [facility] Comment on above: Performed By: #### H STROPN, CMP #### [facility] [address] [place] [address] Dr. Alyson Rowley Calcium [Mass/Vol] 9.6 mg/dL Normal 8.5-10.1 [facility] Comment on above: Performed By: #### H STROPN, CMP #### [facility] [address] [place] [address] Dr. Alyson Rowley Chloride [Moles/Vol] 93 mmol/L Critically low 98-107 [facility] Comment on above: Performed By: #### H STROPN, CMP #### [facility] [address] [place] [address] Dr. Alyson Rowley CO2 [Moles/Vol] 28.5 mmol/L Normal 21.0-32.0 [facility] Comment on above: Performed By: #### H STROPN, CMP #### [facility] [address] [place] [address] Dr. Alyson Rowley Creatinine [Mass/Vol] 0.62 mg/dL Normal 0.55-1.02 [facility] Comment on above: Performed By: #### H STROPN, CMP #### [facility] [address] [place] [address] [address] Alyson Rowley EGFR-AF [place] >60 Normal >=60 [facility] Comment on above: Performed By: #### H STROPN, CMP #### [facility] [address] [address] [address] Alyson Rowley EGFR-NON AF [place] >60 Normal >=60 [facility] Comment on above: Performed By: #### H STROPN, CMP #### [facility] [address] [address] [address] Alyson Rowley Globulin (S) [Mass/Vol] 3.1 g/dL Normal [facility] Comment on above: Performed By: #### H STROPN, CMP #### [facility] [address] [place] [address] [address] Alyson Rowley Glucose [Mass/Vol] 111 mg/dL Critically high 74-106 T [facility] Comment on above: Performed By: #### H STROPN, CMP #### [facility] [address] [place] [address] Dr. Alyson Rowley Potassium [Moles/Vol] 3.9 mmol/L Normal 3.5-5.1 [facility] Comment on above: Performed By: #### H STROPN, CMP #### [facility] [address] [place] [address] [address] Alyson Rowley Protein [Mass/Vol] 7.2 g/dL Normal 6.4-8.2 [facility] Comment on above: Performed By: #### H STROPN, CMP #### [facility] [address] [address] [address] Alyson Rowley Sodium [Moles/Vol] 129 mmol/L Critically low 136-145 [facility] Comment on above: Performed By: #### H STROPN, CMP #### [facility] [address] [address] [address] Alyson Rowley Urea nitrogen [Mass/Vol] 13.0 mg/dL Normal 7.0-18.0 [facility] Comment on above: Performed By: #### H WILFREDO, CMP #### [facility] [address] [address] [address] Alyson Rowley Urea nitrogen/Creatinine [Mass ratio] 21.0 mg/mg Normal [facility] Comment on above: Performed By: #### H WILFREDO, CMP #### [facility] [address] [place] [address] [address] Alyson Rowley TROPONIN, HIGH SENSITIVITYon 07-24-2022 HSTROP 5.5 pg/mL Normal 4.0-51.3 [facility] Comment on above: Result Comment: CUT- OFF POINTS HAVE BEEN ESTABLISHED BASED ON THE FOURTH UNIVERSAL DEFINITIONS OF MYOCARDIAL INFARCTION. THE UPPER REFERENCE LIMIT (URL) OF TROPONIN, DEFINED THE 99TH PERCENTILE OF cTnI DISTRIBUTION IN A REFERENCE POPULATION, HAS BEEN CONFIRMED THE DECISION THRESHOLD FOR [place] DIAGNOSIS. Performed By: #### H WILFREDO, CMP #### [facility] [address] [place] [address] Dr. Alyson Rowley XR CHEST 2 Von [...] by: GENA PEARSON Date: 2022-07-24 17:57 Normal [facility] Urine culture routineOrdered By: ALEXIA DEJESUS on 07-19-2022 Bacteria identified Cx Nom (U) 2 Days [facility] Urinalysis - AUTOMATEDon Appearance (U) clear [employer] Other Bilirubin Ql (U) Negative [employer] Other Color (U) yellow [email or web address] Other Glucose Ql (U) Negative [employer] Other Hemoglobin Ql (U) trace-intact [email or web address] Other Ketones Ql (U) trace [employer] Other Leukocyte esterase Test strip Ql (U) small [email or web address] Other Nitrite Ql (U) Negative [employer] Other pH (U) 5.5 [pH] [email or web address] Other Protein Ql (U) Negative [employer] Other Specific gravity (U) [Rel density] 1.015 [email or web address] Other Urobilinogen (U) [Mass/Vol] 0.2 mg/dL [email or web address] Other Urinalysis - AUTOMATED [email or web address] Other Urine culture routineOrdered By: ALEXIA DEJESUS on 07-16-2022 Bacteria identified Cx Nom (U) 2 Days [facility] Albumin [Mass/volume] in Ser um or PlasmaOrdered By: Nj Cantu on 07-14-2022 Albumin [Mass/Vol] 4.2 g/dL 3.2-5.[address] [facility] Automated erythrocytes count in urine sediment (number/area)Ordered By: Gregg Rios on 07-14-2022 RBC Auto (Urine sed) [#/Area] 0-1 [HPF] 0-4 [facility] Automated leukocytes count i n urine sediment (number/area)Ordered By: Gregg Rios on 07-14-2022 WBC Auto (Urine sed) [#/Area] 3-4 [HPF] 0-4 [facility] Basophils Auto (Bld) [#/Vol] Ordered By: Jordy Berry on 07-14-2022 Basophils (Bld) [#/Vol] 0.0 10*3/uL 0.0-0.2 [facility] Basophils Auto (Bld) [#/Vol] Ordered By: Nj Cantu on 07-14-2022 Basophils (Bld) [#/Vol] 0.0 10*3/uL 0.0-0.2 [facility] Basophils Auto (Bld) [#/Vol] Ordered By: Gregg Rios on 07-14-2022 Basophils (Bld) [#/Vol] 0.0 10*3/uL 0.0-0.2 [facility] Basophils/100 WBC Auto (Bld) Ordered By: Jordy Berry on 07-14-2022 Basophils/100 WBC (Bld) 0.7 % . [facility] Basophils/100 WBC Auto (Bld) Ordered By: Nj Cantu on 07-14-2022 Basophils/100 WBC (Bld) 0.7 % . [facility] Basophils/100 WBC Auto (Bld) Ordered By: Gregg Rios on 07-14-2022 Basophils/100 WBC (Bld) 0.4 % . [facility] Bilirubin Test strip Ql (U)O rdered By: Gregg Rios on 07-14-2022 Bilirubin Ql (U) Negative Negative [facility] Blood hemoglobin measurement (mass/volume)Ordered By: Jordy Berry on 07-14-2022 Hemoglobin (Bld) [Mass/Vol] 12.7 g/dL 11.8-15.4 [facility] Blood hemoglobin measurement (mass/volume)Ordered By: Nj Cantu on 07-14-2022 Hemoglobin (Bld) [Mass/Vol] 13.6 g/dL 11.8-15.4 [facility] Blood hemoglobin measurement (mass/volume)Ordered By: Gregg Rios on 07-14-2022 Hemoglobin (Bld) [Mass/Vol] 12.7 g/dL 11.8-15.4 [facility] Blood leukocytes automated c ount (number/volume)Ordered By: Jordy Berry on 07-14-2022 WBC (Bld) [#/Vol] 6.8 10*3/uL 4.5-11.[address] [facility] Blood leukocytes automated c ount (number/volume)Ordered By: Nj Cantu on 07-14-2022 WBC (Bld) [#/Vol] 6.3 10*3/uL 4.5-11.[address] [facility] Blood leukocytes automated c ount (number/volume)Ordered By: Gregg Jenkinsarthy on 07-14-2022 WBC (Bld) [#/Vol] 5.2 10*3/uL 4.5-11.[address] [facility] Body fluid albumin measureme nt (mass/volume)Ordered By: Greggbarbi Rios on 07-14-2022 Albumin (Body fld) [Mass/Vol] 4.1 g/dL 3.2-5.5 [facility] COVID-19 Positive/NegativeOr dered By: Gregg Rios on 07-14-2022 SARS-CoV-2 (COVID-19) N gene [place]ENTON+probe Ql (Resp) Negative Negative [facility] Comment on above: Testing for SARS-CoV -2 by RT-PCRThis test was developed and its performance characteristics determined by [employer] and validated at the [facility]. This test has not been FDA cleared [...] SOFIAOrdered By: Shalini Rios on 07-14-2022 SARS-CoV+SARS-CoV-2 (COVID-19) Ag IA.rapid Ql (Resp) Negative Negative [facility] Comment on above: This is a duplicate Sandy SARS Antigen (JUAN) result to be used for statistical tracking purpose only. Color Auto (U)Ordered By: Shalini Rios on 07-14-2022 Color (U) Yellow Yellow [facility] Creatinine and Glomerular fi ltration rate.predicted panel (S/P/Bld)Ordered By: Jordy Berry on 07-14-2022 Creatinine [Mass/Vol] 0.73 mg/dL 0.44-1.03 [facility] Creatinine and Glomerular fi ltration rate.predicted panel (S/P/Bld)Ordered By: Nj Cantu on 07-14-2022 Creatinine [Mass/Vol] 0.51 mg/dL 0.44-1.03 [facility] Creatinine and Glomerular fi ltration rate.predicted panel (S/P/Bld)Ordered By: Gregg Rios on 07-14-2022 Creatinine [Mass/Vol] 0.56 mg/dL 0.44-1.03 [facility] Eosinophils Auto (Bld) [#/Vo l]Ordered By: Jordy Berry on 07-14-2022 Eosinophils (Bld) [#/Vol] 0.1 10*3/uL 0.0-0.45 [facility] Eosinophils Auto (Bld) [#/Vo l]Ordered By: Nj Cantu on 07-14-2022 Eosinophils (Bld) [#/Vol] 0.1 10*3/uL 0.0-0.45 [facility] Eosinophils Auto (Bld) [#/Vo l]Ordered By: Gregg Rios on 07-14-2022 Eosinophils (Bld) [#/Vol] 0.1 10*3/uL 0.0-0.45 [facility] Eosinophils/100 WBC Auto (Bl d)Ordered By: Jordy Berry on 07-14-2022 Eosinophils/100 WBC (Bld) 1.6 % . [facility] Eosinophils/100 WBC Auto (Bl d)Ordered By: Nj Cantu on 07-14-2022 Eosinophils/100 WBC (Bld) 1.7 % . [facility] Eosinophils/100 WBC Auto (Bl d)Ordered By: Gregg Rios on 07-14-2022 Eosinophils/100 WBC (Bld) 1.7 % . [facility] Erythrocyte distribution wid th Auto (RBC) [Ratio]Ordered By: Jordy Berry on 07-14-2022 Erythrocyte distribution width (RBC) [Ratio] 13.5 % 11.9-15.3 [facility] Erythrocyte distribution wid th Auto (RBC) [Ratio]Ordered By: Nj Cantu on 07-14-2022 Erythrocyte distribution width (RBC) [Ratio] 13.5 % 11.9-15.3 [facility] Erythrocyte distribution wid th Auto (RBC) [Ratio]Ordered By: Gregg Rios on 07-14-2022 Erythrocyte distribution width (RBC) [Ratio] 13.4 % 11.9-15.3 [facility] Estimated glomerular filtrat ion rate (GFR) non- AmericanOrdered By: Jordy Berry on 07-14-2022 GFR/1.73 sq M.predicted among non-blacks MDRD (S/P/Bld) [Vol rate/Area] > 60 mL/Min [facility] Estimated glomerular filtrat ion rate (GFR) non- AmericanOrdered By: Nj Cantu on 07-14-2022 GFR/1.73 sq M.predicted among non-blacks MDRD (S/P/Bld) [Vol rate/Area] > 60 mL/Min [facility] Estimated glomerular filtrat ion rate (GFR) non- AmericanOrdered By: Gregg Rios on 07-14-2022 GFR/1.73 sq M.predicted among non-blacks MDRD (S/P/Bld) [Vol rate/Area] > 60 mL/Min [facility] Globulin Calc (S) [Mass/Vol] Ordered By: Nj Cantu on 07-14-2022 Globulin (S) [Mass/Vol] 2.7 g/dL [facility] Globulin Calc (S) [Mass/Vol] Ordered By: Gregg Rios on 07-14-2022 Globulin (S) [Mass/Vol] 2.6 g/dL [facility] Glucose Glucometer (BldC) [M ass/Vol]Ordered By: Sarah Quevedo on 07-14-2022 Glucose [Mass/Vol] 98 mg/dL [facility] Comment on above: Random Glucose Refer ence Range is dependent on time and content of last meal. Glucose of more than 200 mg/dL in a nonstressed, ambulatory subject supports the diagnosis of Diabetes Mellitus. Hematocrit Auto (Bld) [Volum e fraction]Ordered By: Jordy Berry on 07-14-2022 Hematocrit (Bld) [Volume fraction] 37.3 % 34.0-46.4 [facility] Hematocrit Auto (Bld) [Volum e fraction]Ordered By: Nj Cantu on 07-14-2022 Hematocrit (Bld) [Volume fraction] 39.9 % 34.0-46.4 [facility] Hematocrit Auto (Bld) [Volum e fraction]Ordered By: Gregg Rios on 07-14-2022 Hematocrit (Bld) [Volume fraction] 37.1 % 34.0-46.4 [facility] Ketones Auto test strip (U) [Mass/Vol]Ordered By: Gregg Rios on 07-14-2022 Ketones (U) [Mass/Vol] Negative Negative [facility] Laboratory - Chemistry and C hemistry - challengeOrdered By: Nj Cantu on 07-14-2022 Magnesium [Mass/Vol] 2.0 mg/dL 1.6-2.6 [facility] Laboratory - Hematology and Cell countsOrdered By: Jordy Berry on 07-14-2022 Nucleated RBC/100 WBC (Bld) [Ratio] 0.0 % 0-0.5 [facility] Laboratory - Hematology and Cell countsOrdered By: Nj Cantu on 07-14-2022 Nucleated RBC/100 WBC (Bld) [Ratio] 0.1 % 0-0.5 [facility] Laboratory - Hematology and Cell countsOrdered By: Gregg Rios on 07-14-2022 Nucleated RBC/100 WBC (Bld) [Ratio] 0.1 % 0-0.5 [facility] Laboratory - UrinalysisOrder ed By: Gregg Rios on 07-14-2022 Hyaline casts LM Ql (Urine sed) None seen [LPF] 0-8 [facility] Lymphocytes Auto (Bld) [#/Vo l]Ordered By: Jordy Berry on 07-14-2022 Lymphocytes (Bld) [#/Vol] 1.3 10*3/uL 1.00-4.8 [facility] Lymphocytes Auto (Bld) [#/Vo l]Ordered By: Nj Cantu on 07-14-2022 Lymphocytes (Bld) [#/Vol] 1.9 10*3/uL 1.00-4.8 [facility] Lymphocytes Auto (Bld) [#/Vo l]Ordered By: Gregg Rios on 07-14-2022 Lymphocytes (Bld) [#/Vol] 1.4 10*3/uL 1.00-4.8 [facility] Lymphocytes/100 WBC Auto (Bl d)Ordered By: Jordy Berry on 07-14-2022 Lymphocytes/100 WBC (Bld) 19.0 % . [facility] Lymphocytes/100 WBC Auto (Bl d)Ordered By: Nj Cantu on 07-14-2022 Lymphocytes/100 WBC (Bld) 30.9 % . [facility] Lymphocytes/100 WBC Auto (Bl d)Ordered By: Gregg Rios on 07-14-2022 Lymphocytes/100 WBC (Bld) 26.6 % . [facility] MCH Auto (RBC) [Entitic mass ]Ordered By: Jordy Berry on 07-14-2022 MCH (RBC) [Entitic mass] 28.2 pg 24.7-34.3 [facility] MCH Auto (RBC) [Entitic mass ]Ordered By: Nj Cantu on 07-14-2022 MCH (RBC) [Entitic mass] 28.3 pg 24.7-34.3 [facility] MCH Auto (RBC) [Entitic mass ]Ordered By: Gregg Rios on 07-14-2022 MCH (RBC) [Entitic mass] 28.2 pg 24.7-34.3 [facility] MCHC Auto (RBC) [Mass/Vol]Or dered By: Jordy Berry on 07-14-2022 MCHC (RBC) [Mass/Vol] 34.1 g/dL 32.0-35.0 [facility] MCHC Auto (RBC) [Mass/Vol]Or dered By: Nj Cantu on 07-14-2022 MCHC (RBC) [Mass/Vol] 34.0 g/dL 32.0-35.0 [facility] MCHC Auto (RBC) [Mass/Vol]Or dered By: Gregg Rios on 07-14-2022 MCHC (RBC) [Mass/Vol] 34.2 g/dL 32.0-35.0 [facility] MCV Auto (RBC) [Entitic vol] Ordered By: Jordy Berry on 07-14-2022 MCV (RBC) [Entitic vol] 82.9 fL 80-100 [facility] MCV Auto (RBC) [Entitic vol] Ordered By: Nj Cantu on 07-14-2022 MCV (RBC) [Entitic vol] 83.2 fL 80-100 [facility] MCV Auto (RBC) [Entitic vol] Ordered By: Gregg Rios on 07-14-2022 MCV (RBC) [Entitic vol] 82.2 fL 80-100 [facility] Monocytes Auto (Bld) [#/Vol] Ordered By: Jordy Berry on 07-14-2022 Monocytes (Bld) [#/Vol] 0.7 10*3/uL 0.0-0.8 [facility] Monocytes Auto (Bld) [#/Vol] Ordered By: Nj Cantu on 07-14-2022 Monocytes (Bld) [#/Vol] 0.6 10*3/uL 0.0-0.8 [facility] Monocytes Auto (Bld) [#/Vol] Ordered By: Gregg Rios on 07-14-2022 Monocytes (Bld) [#/Vol] 0.5 10*3/uL 0.0-0.8 [facility] Monocytes/100 WBC Auto (Bld) Ordered By: Jordy Berry on 07-14-2022 Monocytes/100 WBC (Bld) 9.8 % . [facility] Monocytes/100 WBC Auto (Bld) Ordered By: Nj Cantu on 07-14-2022 Monocytes/100 WBC (Bld) 10.3 % . [facility] Monocytes/100 WBC Auto (Bld) Ordered By: Grgeg Rios on 07-14-2022 Monocytes/100 WBC (Bld) 10.0 % . [facility] Neutrophils Auto (Bld) [#/Vo l]Ordered By: Jordy Berry on 07-14-2022 Neutrophils (Bld) [#/Vol] 4.7 10*3/uL 1.8-7.7 [facility] Neutrophils Auto (Bld) [#/Vo l]Ordered By: Nj Cantu on 07-14-2022 Neutrophils (Bld) [#/Vol] 3.5 10*3/uL 1.8-7.7 [facility] Neutrophils Auto (Bld) [#/Vo l]Ordered By: Gregg Rios on 07-14-2022 Neutrophils (Bld) [#/Vol] 3.2 10*3/uL 1.8-7.7 [facility] Neutrophils/100 WBC Auto (Bl d)Ordered By: Jordy Berry on 07-14-2022 Neutrophils/100 WBC (Bld) 68.9 % . [facility] Neutrophils/100 WBC Auto (Bl d)Ordered By: Nj Cantu on 07-14-2022 Neutrophils/100 WBC (Bld) 56.4 % . [facility] Neutrophils/100 WBC Auto (Bl d)Ordered By: Gregg Rios on 07-14-2022 Neutrophils/100 WBC (Bld) 61.3 % . [facility] Nitrite Test strip Ql (U)Ord ered By: Gregg Rios on 07-14-2022 Nitrite Ql (U) Negative Negative [facility] No Panel InformationOrdered By: Jordy Berry on 07-14-2022 Estimated GFR () > 60 mL/Min [facility] Comment on above: GFR estimated refere nce range: According to KDOQI guidelines, <60 ml/min/1.73m2 is sufficient to diagnose a patient with chronic kidney disease. Pharmacy Creatinine Clearance (Chem 40.28 [facility] No Panel InformationOrdered By: Nj Cantu on 07-14-2022 Estimated GFR () > 60 mL/Min [facility] Comment on above: GFR estimated refere nce range: According to KDOQI guidelines, <60 ml/min/1.73m2 is sufficient to diagnose a patient with chronic kidney disease. Pharmacy Creatinine Clearance (Chem 39.79 [facility] No Panel InformationOrdered By: Gregg Rios on 07-14-2022 SARS Antigen (LFIA) [facility] Estimated GFR () > 60 mL/Min [facility] Comment on above: GFR estimated refere nce range: According to KDOQI guidelines, <60 ml/min/1.73m2 is sufficient to diagnose a patient with chronic kidney disease. Pharmacy Creatinine Clearance (Chem 40.68 [facility] SARS Antigen (LFIA) [facility] Osmolality measurementOrdere d By: Nj Cantu on 07-14-2022 Osmolality (Unsp spec) [Osmolality] 280 mosm 278-305 [facility] Platelet mean volume Auto (B ld) [Entitic vol]Ordered By: Jordy Berry on 07-14-2022 Platelet mean volume (Bld) [Entitic vol] 7.7 fL 6.3-10.7 [facility] Platelet mean volume Auto (B ld) [Entitic vol]Ordered By: Nj Cantu on 07-14-2022 Platelet mean volume (Bld) [Entitic vol] 7.7 fL 6.3-10.7 [facility] Platelet mean volume Auto (B ld) [Entitic vol]Ordered By: Gregg Rios on 07-14-2022 Platelet mean volume (Bld) [Entitic vol] 7.7 fL 6.3-10.7 [facility] Platelets Auto (Bld) [#/Vol] Ordered By: Jordy Berry on 07-14-2022 Platelets (Bld) [#/Vol] 216 10*3/uL 150-450 [facility] Platelets Auto (Bld) [#/Vol] Ordered By: Nj Cantu on 07-14-2022 Platelets (Bld) [#/Vol] 222 10*3/uL 150-450 [facility] Platelets Auto (Bld) [#/Vol] Ordered By: Gregg Rios on 07-14-2022 Platelets (Bld) [#/Vol] 207 10*3/uL 150-450 [facility] Protein Auto test strip (U) [Mass/Vol]Ordered By: Gregg Rios on 07-14-2022 Protein (U) [Mass/Vol] Negative Negative [facility] Protein [Mass/volume] in Ser um or PlasmaOrdered By: Nj Cantu on 07-14-2022 Protein [Mass/Vol] 6.9 g/dL 6.1-7.[address] [facility] Protein [Mass/volume] in Ser um or PlasmaOrdered By: Gregg Rios on 07-14-2022 Protein [Mass/Vol] 6.7 g/dL 6.1-7.[address] [facility] RBC Auto (Bld) [#/Vol]Ordere d By: Jordy Berry on 07-14-2022 RBC (Bld) [#/Vol] 4.50 10*6/uL 3.60-5.00 [facility] RBC Auto (Bld) [#/Vol]Ordere d By: Nj Cantu on 07-14-2022 RBC (Bld) [#/Vol] 4.80 10*6/uL 3.60-5.00 [facility] RBC Auto (Bld) [#/Vol]Ordere d By: Gregg Rios on 07-14-2022 RBC (Bld) [#/Vol] 4.52 10*6/uL 3.60-5.00 [facility] Serum or plasma alanine gorman otransferase measurement without P-5'-P (enzymatic activiOrdered By: Nj Cantu on 07-14-2022 ALT No additional P-5'-P [Catalytic activity/Vol] 23 U/L [facility] Serum or plasma alanine gorman otransferase measurement without P-5'-P (enzymatic activiOrdered By: Gregg Rios on 07-14-2022 ALT No additional P-5'-P [Catalytic activity/Vol] 21 U/L [facility] Serum or plasma albumin/glob ulin mass ratioOrdered By: Nj Cantu on 07-14-2022 Albumin/Globulin [Mass ratio] 1.6 {ratio} [facility] Serum or plasma albumin/glob ulin mass ratioOrdered By: Gregg Rios on 07-14-2022 Albumin/Globulin [Mass ratio] 1.6 {ratio} [facility] Serum or plasma alkaline sarita sphatase measurement (enzymatic activity/volume)Ordered By: Nj Cantu on 07-14-2022 ALP [Catalytic activity/Vol] 51 U/L 32-92 [facility] Serum or plasma alkaline sarita sphatase measurement (enzymatic activity/volume)Ordered By: Gregg Rios on 07-14-2022 ALP [Catalytic activity/Vol] 50 U/L [facility] Serum or plasma anion gap de terminationOrdered By: Jordy Berry on 07-14-2022 Anion gap [Moles/Vol] 14.8 mmol/L 6.0-15.0 [facility] Serum or plasma anion gap de terminationOrdered By: Nj Cantu on 07-14-2022 Anion gap [Moles/Vol] 14.2 mmol/L 6.0-15.0 [facility] Serum or plasma anion gap de terminationOrdered By: Gregg Rios on 07-14-2022 Anion gap [Moles/Vol] 14.4 mmol/L 6.0-15.0 [facility] Serum or plasma aspartate am inotransferase measurement (enzymatic activity/volume)Ordered By: Nj Cantu on 07-14-2022 AST [Catalytic activity/Vol] 26 U/L [facility] Serum or plasma aspartate am inotransferase measurement (enzymatic activity/volume)Ordered By: Gregg Rios on 07-14-2022 AST [Catalytic activity/Vol] 27 U/L [facility] Serum or plasma calcium luna urement (mass/volume)Ordered By: Jordy Berry on 07-14-2022 Calcium [Mass/Vol] 9.9 mg/dL 8.2-10.[address] [facility] Serum or plasma calcium luna urement (mass/volume)Ordered By: Nj Cantu on 07-14-2022 Calcium [Mass/Vol] 9.8 mg/dL 8.2-10.[address] [facility] Serum or plasma calcium luna urement (mass/volume)Ordered By: Gregg Rios on 07-14-2022 Calcium [Mass/Vol] 10.3 mg/dL 8.2-10.[address] [facility] Serum or plasma chloride haider surement (moles/volume)Ordered By: Jordy Berry on 07-14-2022 Chloride [Moles/Vol] 95 mmol/L 95-114 [facility] Serum or plasma chloride haider surement (moles/volume)Ordered By: Nj Cantu on 07-14-2022 Chloride [Moles/Vol] 94 mmol/L 95-114 [facility] Serum or plasma chloride haider surement (moles/volume)Ordered By: Gregg Rios on 07-14-2022 Chloride [Moles/Vol] 84 mmol/L 95-114 [facility] Serum or plasma glucose luna urement (mass/volume)Ordered By: Jordy Berry on 07-14-2022 Glucose [Mass/Vol] 181 mg/dL 70-[address] [facility] Comment on above: ADA recommended refe rence rangeRandom Glucose Reference Range is dependent on time and content of last meal. Glucose of more than 200 mg/dL in a nonstressed, ambulatory subject supports the diagnosis of Diabetes Mellitus. Serum or plasma glucose luna urement (mass/volume)Ordered By: Nj Catnu on 07-14-2022 Glucose [Mass/Vol] 97 mg/dL 70-[address] [facility] Comment on above: ADA recommended refe rence rangeRandom Glucose Reference Range is dependent on time and content of last meal. Glucose of more than 200 mg/dL in a nonstressed, ambulatory subject supports the diagnosis of Diabetes Mellitus. Serum or plasma glucose luna urement (mass/volume)Ordered By: Gregg Rios on 07-14-2022 Glucose [Mass/Vol] 105 mg/dL 70-[address] [facility] Comment on above: ADA recommended refe rence rangeRandom Glucose Reference Range is dependent on time and content of last meal. Glucose of more than 200 mg/dL in a nonstressed, ambulatory subject supports the diagnosis of Diabetes Mellitus. Serum or plasma potassium me asurement (moles/volume)Ordered By: Jordy Berry on 07-14-2022 Potassium [Moles/Vol] 4.3 mmol/L 3.5-5.1 [facility] Serum or plasma potassium me asurement (moles/volume)Ordered By: Nj Cantu on 07-14-2022 Potassium [Moles/Vol] 4.0 mmol/L 3.5-5.1 [facility] Serum or plasma potassium me asurement (moles/volume)Ordered By: Gregg Rios on 07-14-2022 Potassium [Moles/Vol] 3.4 mmol/L 3.5-5.1 [facility] Serum or plasma sodium measu rement (moles/volume)Ordered By: Jordy Berry on 07-14-2022 Sodium [Moles/Vol] 131 mmol/L 136-[address] [facility] Serum or plasma sodium measu rement (moles/volume)Ordered By: Nj Cantu on 07-14-2022 Sodium [Moles/Vol] 131 mmol/L 136-[address] [facility] Serum or plasma sodium measu rement (moles/volume)Ordered By: Gregg Rios on 07-14-2022 Sodium [Moles/Vol] 126 mmol/L 136-[address] [facility] Serum or plasma total biliru bin measurement (mass/volume)Ordered By: Nj Cantu on 07-14-2022 Bilirubin [Mass/Vol] 0.7 mg/dL 0.3-1.2 [facility] Serum or plasma total biliru bin measurement (mass/volume)Ordered By: Gregg Rios on 07-14-2022 Bilirubin [Mass/Vol] 0.6 mg/dL 0.3-1.2 [facility] Serum or plasma total carbon dioxide measurement (moles/volume)Ordered By: Jordy Berry on 07-14-2022 CO2 [Moles/Vol] 25.5 mmol/L 22.0-30.0 [facility] Serum or plasma total carbon dioxide measurement (moles/volume)Ordered By: Nj Cantu on 07-14-2022 CO2 [Moles/Vol] 26.8 mmol/L 22.0-30.0 [facility] Serum or plasma total carbon dioxide measurement (moles/volume)Ordered By: Gregg Rios on 07-14-2022 CO2 [Moles/Vol] 31.0 mmol/L 22.0-30.0 [facility] Serum or plasma urea nitroge n measurement (mass/volume)Ordered By: Jordy Berry on 07-14-2022 Urea nitrogen [Mass/Vol] 13 mg/dL 9-23 [facility] Serum or plasma urea nitroge n measurement (mass/volume)Ordered By: Nj Cantu on 07-14-2022 Urea nitrogen [Mass/Vol] 5 mg/dL 07-06 [facility] Serum or plasma urea nitroge n measurement (mass/volume)Ordered By: Gregg Rios on 07-14-2022 Urea nitrogen [Mass/Vol] 8 mg/dL 07-06 [facility] Specific gravity Auto test s trip (U) [Rel density]Ordered By: Gregg Rios on 07-14-2022 Specific gravity (U) [Rel density] 1.004 1.001-1.03 0 [facility] Squamous epithelial cells de tection in urine sediment by light microscopyOrdered By: Gregg Rios on 07-14-2022 Epithelial cells.squamous LM Ql (Urine sed) 0-1 [HPF] 0-2 [facility] TSH DL <= 0.005 mIU/L QnOrde red By: Nj Cantu on 07-14-2022 TSH Qn 1.75 m[IU]/L 0.45-5.33 [facility] Thyroxine (T4) free [Mass/vo lume] in Serum or PlasmaOrdered By: Nj Cantu on 07-14-2022 Free T4 [Mass/Vol] 1.00 ng/dL 0.61-1.[address] [facility] Urine bacteria detection by automated methodOrdered By: Gregg Rios on 07-14-2022 Bacteria Auto Ql (U) None seen None Seen [facility] Urine clarity by refractomet ry automatedOrdered By: Gregg Rios on 07-14-2022 Clarity Refractometry automated (U) Clear Clear [facility] Urine glucose measurement by automated test strip (mass/volume)Ordered By: Gregg Rios on 07-14-2022 Glucose Auto test strip (U) [Mass/Vol] Normal mg/dL Normal [facility] Urine hemoglobin detection b y automated test stripOrdered By: Gregg Rios on 07-14-2022 Hemoglobin Auto test strip Ql (U) Negative Negative [facility] Urine leukocyte esterase det ection by automated test stripOrdered By: Gregg Rios on 07-14-2022 Leukocyte esterase Auto test strip Ql (U) 2+ Negative [facility] Urine sodium measurement (mo les/volume)Ordered By: Nj Cantu on 07-14-2022 Sodium (U) [Moles/Vol] 19 mmol/L [facility] Comment on above: No reference range e stablished Urobilinogen Auto test strip (U) [Mass/Vol]Ordered By: Gregg Rios on 07-14-2022 Urobilinogen (U) [Mass/Vol] Normal mg/dL Normal [facility] pH Auto test strip (U)Ordere d By: Gregg Rios on 07-14-2022 pH (U) 7.0 [pH] 5.0-9.0 [facility] FERRITINon 07-09-2022 Ferritin [Mass/Vol] 87.0 ng/mL Normal 8.0-252.0 [facility] Comment on above: Performed By: #### F ETIBC, FERR ####[facility] [id number] [place], [place] [address]NvDr. Alyson Rowley GLYCOHEMOGLOBIN A1Con 2021 ADA RECOMMENDATION SEE BELOW Normal [facility] Comment on above: Result Comment: ADA RECOMMENDED LIMIT 4.0 - 6.0 ADA THERAPEUTIC TARGET < 7.0 ACTION SUGGESTED > 7.0 Performed By: #### H STROPN, BNP, LIPA, CMP, TSH #### [facility] [address] [address] [address] Alyson Rowley Glucose [Mass/Vol] 123 mg/dL Normal [facility] Comment on above: Performed By: #### H STROPN, BNP, LIPA, CMP, TSH #### [facility] [address] [place], [place] [address] Dr. Alyson Rowley HbA1c (Bld) [Mass fraction] 5.9 % Normal 4.5-6.2 [facility] Comment on above: Performed By: #### H STROPN, BNP, LIPA, CMP, TSH #### [facility] [address] [address] [address] Alyson Rowley IRON AND TIBCon 07-09-2022 % SATURATION 12.7 % Normal [facility] Comment on above: Performed By: #### F ETIBC, FERR ####[facility] [id number] [place], [place] [address]Zr. Alyson Rowley Iron [Mass/Vol] 49.0 ug/dL Critically low 50.0-170.0 [facility] Comment on above: Performed By: #### F ETIBC, FERR ####[facility] [address] [place], [place] [address]Tf. Alyson Rowley TIBC DIRECT 387.0 ug/dL Normal 250.0-450. 0 [facility] Comment on above: Performed By: #### F ETIBC, FERR ####[facility] [id number] [place], [place] [address]Lw. Alyson Rowley MAGNESIUMon 07-09-2022 Magnesium [Mass/Vol] 1.9 mg/dL Normal 1.8-2.4 [facility] Comment on above: Performed By: #### H STROPN, BNP, LIPA, CMP, TSH #### [facility] [address] [address] [address] Alyson Rowley TSHon 07-09-2022 TSH 1.205 uIU/mL Normal 0.358-3.74 0 [facility] Comment on above: Performed By: #### H STROPN, BNP, LIPA, CMP, TSH #### [facility] [address] [address] [address] Alyson Rowley [facility] CARDIAC STRESS/REST INJE CTIONon 06-29-2022 [facility] CARDIAC STRESS/REST INJECTION Patient Name: MARITZA VICENTE STUDY: MYOCARDIAL PERFUSION STRESS TEST WITH LEXISCAN Performing facility: [facility], [address] [place] [address], [address], [address] Provider: Avelino Berry RN, MANAGER TRADING PCP: Dr. Srinivas Vick Supervising provider: Rell Goodrich MD INDICATION: Chest Pain; HISTORY: Gender: F; Age: 82 y/o ; Height: 0 cm; Weight: 0 kg. High Cholesterol; Diabetes; HTN; Chest Pain; Dizziness Denies smoking. COMPARISON: Previous nuclear testing completed at [place]. ACCESSION NUMBER(S): [id number]; [id number]; [id number] ORDERING CLINICIAN: AVELINO BERRY TECHNIQUE: ONE DAY [...] Electronically signed by: RELL GOODRICH MD Normal [facility] No Panel Informationon 06-29 Normal -[facility] [address] DO Work Phone: Basophils Auto (Bld) [#/Vol] Ordered By: Natalia Fontana on 06-20-2022 Basophils (Bld) [#/Vol] 0.0 10*3/uL 0.0-0.2 [facility] Basophils/100 WBC Auto (Bld) Ordered By: Natalia Fontana on 06-20-2022 Basophils/100 WBC (Bld) 0.7 % . [facility] Bilirubin Test strip Ql (U)O rdered By: Natalia Fontana on 09-07-2022 Bilirubin Ql (U) Negative Negative [facility] Blood hemoglobin measurement (mass/volume)Ordered By: Natalia Fontana on 06-20-2022 Hemoglobin (Bld) [Mass/Vol] 13.3 g/dL 11.8-15.4 [facility] Blood leukocytes automated c ount (number/volume)Ordered By: Natalia Fontana on 06-20-2022 WBC (Bld) [#/Vol] 6.0 10*3/uL 4.5-11.[address] [facility] Color Auto (U)Ordered By: Haja Fontana on 06-20-2022 Color (U) Yellow Yellow [facility] Creatinine and Glomerular fi ltration rate.predicted panel (S/P/Bld)Ordered By: Natalia Fontana on 06-20-2022 Creatinine [Mass/Vol] 0.74 mg/dL 0.44-1.03 [facility] Eosinophils Auto (Bld) [#/Vo l]Ordered By: Natalia Fontana on 06-20-2022 Eosinophils (Bld) [#/Vol] 0.2 10*3/uL 0.0-0.45 [facility] Eosinophils/100 WBC Auto (Bl d)Ordered By: Natalia Fontana on 06-20-2022 Eosinophils/100 WBC (Bld) 3.0 % . [facility] Erythrocyte distribution wid th Auto (RBC) [Ratio]Ordered By: Natalia Fontana on 06-20-2022 Erythrocyte distribution width (RBC) [Ratio] 13.7 % 11.9-15.3 [facility] Estimated glomerular filtrat ion rate (GFR) non- AmericanOrdered By: Natalia Fontana on 06-20-2022 GFR/1.73 sq M.predicted among non-blacks MDRD (S/P/Bld) [Vol rate/Area] > 60 mL/Min [facility] Hematocrit Auto (Bld) [Volum e fraction]Ordered By: Natalia Fontana on 06-20-2022 Hematocrit (Bld) [Volume fraction] 39.3 % 34.0-46.4 [facility] Ketones Auto test strip (U) [Mass/Vol]Ordered By: Natalia Fontana on 09-07-2022 Ketones (U) [Mass/Vol] Negative Negative [facility] Laboratory - Chemistry and C hemistry - challengeOrdered By: Natalia Fontana on 06-20-2022 Magnesium [Mass/Vol] 2.0 mg/dL 1.6-2.6 [facility] Laboratory - Hematology and Cell countsOrdered By: Natalia Fontana on 06-20-2022 Nucleated RBC/100 WBC (Bld) [Ratio] 0.0 % 0-0.5 [facility] Lymphocytes Auto (Bld) [#/Vo l]Ordered By: Natalia Fontana on 06-20-2022 Lymphocytes (Bld) [#/Vol] 1.7 10*3/uL 1.00-4.8 [facility] Lymphocytes/100 WBC Auto (Bl d)Ordered By: Natalia Fontana on 06-20-2022 Lymphocytes/100 WBC (Bld) 28.7 % . [facility] MCH Auto (RBC) [Entitic mass ]Ordered By: Natalia Fontana on 06-20-2022 MCH (RBC) [Entitic mass] 28.5 pg 24.7-34.3 [facility] MCHC Auto (RBC) [Mass/Vol]Or dered By: Natalia Fontana on 06-20-2022 MCHC (RBC) [Mass/Vol] 33.8 g/dL 32.0-35.0 [facility] MCV Auto (RBC) [Entitic vol] Ordered By: Natalia Fontana on 06-20-2022 MCV (RBC) [Entitic vol] 84.5 fL 80-100 [facility] Monocytes Auto (Bld) [#/Vol] Ordered By: Natalia Fontana on 06-20-2022 Monocytes (Bld) [#/Vol] 0.4 10*3/uL 0.0-0.8 [facility] Monocytes/100 WBC Auto (Bld) Ordered By: Natalia Fontana on 06-20-2022 Monocytes/100 WBC (Bld) 7.4 % . [facility] Neutrophils Auto (Bld) [#/Vo l]Ordered By: Natalia Fontana on 06-20-2022 Neutrophils (Bld) [#/Vol] 3.6 10*3/uL 1.8-7.7 [facility] Neutrophils/100 WBC Auto (Bl d)Ordered By: Natalia Fontana on 06-20-2022 Neutrophils/100 WBC (Bld) 60.2 % . [facility] Nitrite Test strip Ql (U)Ord ered By: Natalia Fontana on 06-20-2022 Nitrite Ql (U) Negative Negative [facility] No Panel InformationOrdered By: Natalia Fontana on 06-20-2022 Estimated GFR () > 60 mL/Min [facility] Comment on above: GFR estimated refere nce range: According to KDOQI guidelines, <60 ml/min/1.73m2 is sufficient to diagnose a patient with chronic kidney disease. Pharmacy Creatinine Clearance (Chem 42.31 [facility] Platelet mean volume Auto (B ld) [Entitic vol]Ordered By: Natalia Fontana on 06-20-2022 Platelet mean volume (Bld) [Entitic vol] 7.9 fL 6.3-10.7 [facility] Platelets Auto (Bld) [#/Vol] Ordered By: Natalia Fontana on 06-20-2022 Platelets (Bld) [#/Vol] 198 10*3/uL 150-450 [facility] Protein Auto test strip (U) [Mass/Vol]Ordered By: Natalia Fontana on 06-20-2022 Protein (U) [Mass/Vol] Negative Negative [facility] RBC Auto (Bld) [#/Vol]Ordere d By: Natalia Fontana on 06-20-2022 RBC (Bld) [#/Vol] 4.65 10*6/uL 3.60-5.00 [facility] Serum or plasma anion gap de terminationOrdered By: Natalia Fontana on 06-20-2022 Anion gap [Moles/Vol] 13.3 mmol/L 6.0-15.0 [facility] Serum or plasma calcium luna urement (mass/volume)Ordered By: Natalia Fontana on 06-20-2022 Calcium [Mass/Vol] 9.7 mg/dL 8.2-10.[address] [facility] Serum or plasma chloride haider surement (moles/volume)Ordered By: Natalia Fontana on 06-20-2022 Chloride [Moles/Vol] 95 mmol/L 95-114 [facility] Serum or plasma glucose luna urement (mass/volume)Ordered By: Natalia Fontana on 06-20-2022 Glucose [Mass/Vol] 109 mg/dL 70-[address] [facility] Comment on above: ADA recommended refe [...] on 06-20-2022 Potassium [Moles/Vol] 3.8 mmol/L 3.5-5.1 [facility] Serum or plasma sodium measu rement (moles/volume)Ordered By: Natalia Fontana on 06-20-2022 Sodium [Moles/Vol] 134 mmol/L 136-[address] [facility] Serum or plasma total carbon dioxide measurement (moles/volume)Ordered By: Natalia Fontana on 06-20-2022 CO2 [Moles/Vol] 29.5 mmol/L 22.0-30.0 [facility] Serum or plasma urea nitroge n measurement (mass/volume)Ordered By: Natalia Fontana on 06-20-2022 Urea nitrogen [Mass/Vol] 10 mg/dL 9-23 [facility] Specific gravity Auto test s trip (U) [Rel density]Ordered By: Natalia Fontana on 06-20-2022 Specific gravity (U) [Rel density] 1.005 1.001-1.03 0 [facility] Troponin I.cardiac [Mass/vol ume] in Serum or Plasma by High sensitivity methodOrdered By: Natalia Fontana on 06-20-2022 Troponin I.cardiac High sensitivity method [Mass/Vol] 3 pg/mL 0-15 [facility] Urine clarity by refractomet ry automatedOrdered By: Natalia Fontana on 06-20-2022 Clarity Refractometry automated (U) Clear Clear [facility] Urine glucose measurement by automated test strip (mass/volume)Ordered By: Natalia Fontana on 06-20-2022 Glucose Auto test strip (U) [Mass/Vol] Normal mg/dL Normal [facility] Urine hemoglobin detection b y automated test stripOrdered By: Natalia Fontana on 06-20-2022 Hemoglobin Auto test strip Ql (U) Negative Negative [facility] Urine leukocyte esterase det ection by automated test stripOrdered By: Natalia Fontana on 06-20-2022 Leukocyte esterase Auto test strip Ql (U) Negative Negative [facility] Urobilinogen Auto test strip (U) [Mass/Vol]Ordered By: Natalia Fontana on 06-20-2022 Urobilinogen (U) [Mass/Vol] Normal mg/dL Normal [facility] pH Auto test strip (U)Ordere d By: Natalia Fontana on 06-20-2022 pH (U) 6.5 [pH] 5.0-9.0 [facility] CULTURE URINEon 06-19-2022 CULTURE URINE Culture Observations : LIGHT GROWTH OF MIXED GENITAL MICAH. NO POTENTIAL PATHOGENS SEEN. Normal [facility] Comment on above: Performed By: #### U RCX ####[facility] [id number] [address]Dr. Alyson Rowley UA RANDOM W/MICROSCOPICon BACTERIA TRACE Abnormal NONE SEEN [facility] Comment on above: Performed By: #### H STROPN, BNP, LIPA, CMP, TSH #### [facility] [address] [address] [address] Alyson Rowley Bilirubin Ql (U) Negative Normal NEGATIVE [facility] Comment on above: Performed By: #### H STROPN, BNP, LIPA, CMP, TSH #### [facility] [address] [address] [address] Alyson Rowley CAST NONE SEEN Normal NONE SEEN [facility] Comment on above: Performed By: #### H STROPN, BNP, LIPA, CMP, TSH #### [facility] [address] [address] [address] Alyson Rowley Clarity (U) CLEAR Normal CLEAR [facility] Comment on above: Performed By: #### H STROPN, BNP, LIPA, CMP, TSH #### [facility] [address] [address] [address] Alyson Rowley Color (U) YELLOW Normal YELLOW [facility] Comment on above: Performed By: #### H STROPN, BNP, LIPA, CMP, TSH #### [facility] [address] [address] [address] Alyson Rowley Crystals LM Nom (Urine sed) NONE SEEN Normal NONE SEEN [facility] Comment on above: Performed By: #### H STROPN, BNP, LIPA, CMP, TSH #### [facility] [address] [address] [address] Alyson Rowley Epithelial cells LM Ql (Urine sed) FEW Abnormal NONE SEEN /RARE [facility] Comment on above: Performed By: #### H STROPN, BNP, LIPA, CMP, TSH #### [facility] [address] [address] [address] Alyson Rowley Glucose Ql (U) Negative Normal NEGATIVE [facility] Comment on above: Performed By: #### H STROPN, BNP, LIPA, CMP, TSH #### [facility] [address] [address] [address] Alyson Rowley Hemoglobin Ql (U) Negative Normal NEGATIVE [facility] Comment on above: Performed By: #### H STROPN, BNP, LIPA, CMP, TSH #### [facility] [address] [address] [address] Alyson Rowley Ketones Ql (U) Negative Normal NEGATIVE [facility] Comment on above: Performed By: #### H STROPN, BNP, LIPA, CMP, TSH #### [facility] [address] [address] [address] Alyson Rowley LEUKOCYTES TRACE Abnormal NEGATIVE [facility] Comment on above: Performed By: #### H STROPN, BNP, LIPA, CMP, TSH #### [facility] [address] [address] [address] Alyson Rowley MUCOUS NONE SEEN Normal NONE SEEN [facility] Comment on above: Performed By: #### H STROPN, BNP, LIPA, CMP, TSH #### [facility] [address] [address] [address] Alyson Rowley Nitrite Ql (U) Negative Normal NEGATIVE [facility] Comment on above: Performed By: #### H STROPN, BNP, LIPA, CMP, TSH #### [facility] [address] [place] [address] Dr. Alyson Rowley pH (U) 6.0 [pH] Normal 5-9 [facility] Comment on above: Performed By: #### H STROPN, BNP, LIPA, CMP, TSH #### [facility] [address] [place] [address] Dr. Alyson Rowley RBC 0-2 Normal 0-2 [facility] Comment on above: Performed By: #### H STROPN, BNP, LIPA, CMP, TSH #### [facility] [address] [place] [address] Dr. Alyson Rowley SPEC GRAVITY 1.015 Normal 1.005-<=1. 025 [facility] Comment on above: Performed By: #### H STROPN, BNP, LIPA, CMP, TSH #### [facility] [address] [place] [address] Dr. Alyson Rowley UA PROTEIN Negative Normal NEGATIVE/ TRACE [facility] Comment on above: Performed By: #### H STROPN, BNP, LIPA, CMP, TSH #### [facility] [address] [place] [address] Dr. Alyson Rowley Urobilinogen Qn (U) 0.2 {Karen'U}/dL Normal 0.2 - 1. 0 [facility] Comment on above: Performed By: #### H STROPN, BNP, LIPA, CMP, TSH #### [facility] [address] [place] [address] Dr. Alyson Rowley WBC 2-5 Abnormal NONE SEEN [facility] Comment on above: Performed By: #### H STROPN, BNP, LIPA, CMP, TSH #### [facility] [address] [place] [address] Dr. Alyson Rowley TROPONIN, HIGH SENSITIVITYon 06-14-2022 HSTROP 4.4 pg/mL Normal 4.0-51.3 [facility] Comment on above: Result Comment: CUT- OFF POINTS HAVE BEEN ESTABLISHED BASED ON THE FOURTH UNIVERSAL DEFINITIONS OF MYOCARDIAL INFARCTION. THE UPPER REFERENCE LIMIT (URL) OF TROPONIN, DEFINED THE 99TH PERCENTILE OF cTnI DISTRIBUTION IN A REFERENCE POPULATION, HAS BEEN CONFIRMED THE DECISION THRESHOLD FOR [place] DIAGNOSIS. Performed By: #### H STROPN ####[facility] [id number] [address]Dr. Alyson Rowley CBC AUTO DIFFon 06-13-2022 BASO # 0.0 103/ul Normal 0.0-0.1 [facility] Comment on above: Performed By: #### H STROPN, BNP, LIPA, CMP, TSH #### [facility] [address] [address] [address] Alyson Rowley Basophils/100 WBC (Bld) 0.7 % Normal 0.2-2.0 [facility] Comment on above: Performed By: #### H STROPN, BNP, LIPA, CMP, TSH #### [facility] [address] [address] [address] Alyson Rowley EO # 0.2 103/ul Normal 0.0-0.7 [facility] Comment on above: Performed By: #### H STROPN, BNP, LIPA, CMP, TSH #### [facility] [address] [address] [address] Alyson Rowley Eosinophils/100 WBC (Bld) 3.1 % Normal 0.9-7.0 [facility] Comment on above: Performed By: #### H STROPN, BNP, LIPA, CMP, TSH #### [facility] [address] [address] [address] Alyson Rowley Erythrocyte distribution width (RBC) [Ratio] 13.1 % Normal 11.0-15.0 [facility] Comment on above: Performed By: #### H STROPN, BNP, LIPA, CMP, TSH #### [facility] [address] [address] [address] Alyson Rowley Hematocrit (Bld) [Volume fraction] 36.9 % Normal 36.0-48.0 [facility] Comment on above: Performed By: #### H STROPN, BNP, LIPA, CMP, TSH #### [facility] [address] [place] [address] Dr. Alyson Rowley Hemoglobin (Bld) [Mass/Vol] 12.1 g/dL Normal 12.0-16.0 [facility] Comment on above: Performed By: #### H STROPN, BNP, LIPA, CMP, TSH #### [facility] [address] [place] [address] Dr. Alyson Rowley IG # 0.00 10e3/ul Normal 0.00-0.03 [facility] Comment on above: Performed By: #### H STROPN, BNP, LIPA, CMP, TSH #### [facility] [address] [place] [address] Dr. Alyson Rowley IG % 0.0 % Normal 0.0-0.5 [facility] Comment on above: Performed By: #### H STROPN, BNP, LIPA, CMP, TSH #### [facility] [address] [place] [address] Dr. Alyson Rowley LYMPH # 2.2 103/ul Normal 1.2-3.8 [facility] Comment on above: Performed By: #### H STROPN, BNP, LIPA, CMP, TSH #### [facility] [address] [place] [address] Dr. Alyson Rowley Lymphocytes/100 WBC (Bld) 35.4 % Normal 20.5-60.0 [facility] Comment on above: Performed By: #### H STROPN, BNP, LIPA, CMP, TSH #### [facility] [address] [place] [address] Dr. Alyson Rowley MANUAL DIFF REQ NO Normal [facility] Comment on above: Performed By: #### H STROPN, BNP, LIPA, CMP, TSH #### [facility] [address] [place] [address] Dr. Alyson Rowley MCH (RBC) [Entitic mass] 28.4 pg Normal 26.7-34.0 [facility] Comment on above: Performed By: #### H STROPN, BNP, LIPA, CMP, TSH #### [facility] [address] [place] [address] Dr. Alyson Rowley MCHC (RBC) [Mass/Vol] 32.8 g/dL Normal 29.9-35.2 [facility] Comment on above: Performed By: #### H STROPN, BNP, LIPA, CMP, TSH #### [facility] [address] [place] [address] Dr. Alyson Rowley MCV (RBC) [Entitic vol] 86.6 fL Normal 81.0-99.0 [facility] Comment on above: Performed By: #### H STROPN, BNP, LIPA, CMP, TSH #### [facility] [address] [place] [address] Dr. Alyson Rowley MONO # 0.5 103/ul Normal 0.3-0.8 [facility] Comment on above: Performed By: #### H STROPN, BNP, LIPA, CMP, TSH #### [facility] [address] [place] [address] Dr. Alyson Rowley Monocytes/100 WBC (Bld) 8.1 % Normal 1.7-12.0 [facility] Comment on above: Performed By: #### H STROPN, BNP, LIPA, CMP, TSH #### [facility] [address] [place] [address] Dr. Alyson Rowley NEUT # 3.2 103/ul Normal 1.4-6.5 [facility] Comment on above: Performed By: #### H STROPN, BNP, LIPA, CMP, TSH #### [facility] [address] [place] [address] Dr. Alyson Rowley Neutrophils/100 WBC (Bld) 52.7 % Normal 43.0-75.0 [facility] Comment on above: Performed By: #### H STROPN, BNP, LIPA, CMP, TSH #### [facility] [address] [place] [address] Dr. Alyson Rowley Platelet mean volume (Bld) [Entitic vol] 9.6 fL Normal 9.5-13.5 [facility] Comment on above: Performed By: #### H STROPN, BNP, LIPA, CMP, TSH #### [facility] [address] [address] [address] Alyson Rowley PLT 188 103/ul Normal 150-450 [facility] Comment on above: Performed By: #### H STROPN, BNP, LIPA, CMP, TSH #### [facility] [address] [address] [address] Alyson Rowley RBC 4.26 106/ul Normal 4.20-5.40 [facility] Comment on above: Performed By: #### H STROPN, BNP, LIPA, CMP, TSH #### [facility] [address] [address] [address] Alyson Rowley WBC 6.1 103/ul Normal 4.0-11.0 [facility] Comment on above: Performed By: #### H STROPN, BNP, LIPA, CMP, TSH #### [facility] [address] [place] [address] Dr. Alyson Rowley PROF 14(COMP METB)on 022 Albumin [Mass/Vol] 3.8 g/dL Normal 3.4-5.0 [facility] Comment on above: Performed By: #### H STROPN, BNP, LIPA, CMP, TSH #### [facility] [address] [address] [address] Alyson Rowley Albumin/Globulin [Mass ratio] 1.2 {ratio} Normal [facility] Comment on above: Performed By: #### H STROPN, BNP, LIPA, CMP, TSH #### [facility] [address] [place] [address] Dr. Alyson Rowley ALP [Catalytic activity/Vol] 55 U/L Normal 46-116 [facility] Comment on above: Performed By: #### H STROPN, BNP, LIPA, CMP, TSH #### [facility] [address] [place] [address] Dr. Alyson Rowley ALT [Catalytic activity/Vol] 18 U/L Normal 14-59 [facility] Comment on above: Performed By: #### H STROPN, BNP, LIPA, CMP, TSH #### [facility] [address] [address] [address] Alyson Rowley Anion gap [Moles/Vol] 11.2 mmol/L Normal Th e [facility] Comment on above: Performed By: #### H STROPN, BNP, LIPA, CMP, TSH #### [facility] [address] [address] [address] Alyson Rowley AST [Catalytic activity/Vol] 16 U/L Normal 15-37 [facility] Comment on above: Performed By: #### H STROPN, BNP, LIPA, CMP, TSH #### [facility] [address] [place] [address] Dr. Alyson Rowley Bilirubin [Mass/Vol] 0.4 mg/dL Normal 0.2-1.0 [facility] Comment on above: Performed By: #### H STROPN, BNP, LIPA, CMP, TSH #### [facility] [address] [address] [address] Alyson Rowley Calcium [Mass/Vol] 9.6 mg/dL Normal 8.5-10.1 [facility] Comment on above: Performed By: #### H STROPN, BNP, LIPA, CMP, TSH #### [facility] [address] [address] [address] Alyson Rowley Chloride [Moles/Vol] 99 mmol/L Normal 98-107 [facility] Comment on above: Performed By: #### H STROPN, BNP, LIPA, CMP, TSH #### [facility] [address] [address] [address] Alyson Rowley CO2 [Moles/Vol] 29.3 mmol/L Normal 21.0-32.0 [facility] Comment on above: Performed By: #### H STROPN, BNP, LIPA, CMP, TSH #### [facility] [address] [address] [address] Alyson Rowley Creatinine [Mass/Vol] 0.86 mg/dL Normal 0.55-1.02 [facility] Comment on above: Performed By: #### H STROPN, BNP, LIPA, CMP, TSH #### [facility] [address] [address] [address] Alyson Rowley EGFR-AF [place] >60 Normal >=60 [facility] Comment on above: Performed By: #### H STROPN, BNP, LIPA, CMP, TSH #### [facility] [address] [address] [address] Alyson Rowley EGFR-NON AF [place] >60 Normal >=60 [facility] Comment on above: Performed By: #### H STROPN, BNP, LIPA, CMP, TSH #### [facility] [address] [address] [address] Alyson Rowley Globulin (S) [Mass/Vol] 3.1 g/dL Normal [facility] Comment on above: Performed By: #### H STROPN, BNP, LIPA, CMP, TSH #### [facility] [address] [address] [address] Alyson Rowley Glucose [Mass/Vol] 224 mg/dL Critically high 74-106 T [facility] Comment on above: Performed By: #### H STROPN, BNP, LIPA, CMP, TSH #### [facility] [address] [address] [address] Alyson Rowley Potassium [Moles/Vol] 4.5 mmol/L Normal 3.5-5.1 [facility] Comment on above: Performed By: #### H STROPN, BNP, LIPA, CMP, TSH #### [facility] [address] [address] [address] Alyson Rowley Protein [Mass/Vol] 6.9 g/dL Normal 6.4-8.2 [facility] Comment on above: Performed By: #### H STROPN, BNP, LIPA, CMP, TSH #### [facility] [address] [address] [address] Alyson Rowley Sodium [Moles/Vol] 135 mmol/L Critically low 136-145 Th e [facility] Comment on above: Performed By: #### H STROPN, BNP, LIPA, CMP, TSH #### [facility] [address] [address] [address] Alyson Rowley Urea nitrogen [Mass/Vol] 15.0 mg/dL Normal 7.0-18.0 [facility] Comment on above: Performed By: #### H STROPN, BNP, LIPA, CMP, TSH #### [facility] [address] [address] [address] Alyson Rowley Urea nitrogen/Creatinine [Mass ratio] 17.4 mg/mg Normal [facility] Comment on above: Performed By: #### H STROPN, BNP, LIPA, CMP, TSH #### [facility] [address] [address] [address] Alyson Rowley TROPONIN, HIGH SENSITIVITYon 06-13-2022 HSTROP <4.0 Normal 4.0-51.3 [facility] Comment on above: Result Comment: CUT- OFF POINTS HAVE BEEN ESTABLISHED BASED ON THE FOURTH UNIVERSAL DEFINITIONS OF MYOCARDIAL INFARCTION. THE UPPER REFERENCE LIMIT (URL) OF TROPONIN, DEFINED THE 99TH PERCENTILE OF cTnI DISTRIBUTION IN A REFERENCE POPULATION, HAS BEEN CONFIRMED THE DECISION THRESHOLD FOR [place] DIAGNOSIS. Performed By: #### H STROPN, BNP, LIPA, CMP, TSH #### [facility] [address] [address] [address] Alyson Rowley XR CHEST 1 Von 06-13-2022 XR CHEST 1 V EXAM: XR CHEST 1 V INDICATION: CHEST PAIN, UNSPECIFIED. COMPARISON: Chest radiograph 11/24/2015 TECHNIQUE: Single frontal view of the chest FINDINGS: Normal cardiomediastinal contours. Clear lungs. No pleural effusion or pneumothorax. No acute osseous abnormality. IMPRESSION: No acute cardiopulmonary process. Electronically authenticated by: ELOISE MORRIS Date: 2022-06-13 21:07 Normal [facility] CULTURE URINEon 06-12-2022 CULTURE URINE Culture Observations : LIGHT GROWTH OF MIXED GENITAL MICAH. NO POTENTIAL PATHOGENS SEEN. Normal [facility] Comment on above: Performed By: #### U RCX ####[facility] [id number] [address]Dr. Alyson Rowley GLYCOHEMOGLOBIN A1Con 2021 ADA RECOMMENDATION SEE BELOW Normal [facility] Comment on above: Result Comment: ADA RECOMMENDED LIMIT 4.0 - 6.0 ADA THERAPEUTIC TARGET < 7.0 ACTION SUGGESTED > 7.0 Performed By: #### H STROPN, BNP, LIPA, CMP, TSH #### [facility] [address] [place] [address] Dr. Alyson Rowley Glucose [Mass/Vol] 123 mg/dL Normal [facility] Comment on above: Performed By: #### H STROPN, BNP, LIPA, CMP, TSH #### [facility] [address] [address] [address] Alyson Rowley HbA1c (Bld) [Mass fraction] 5.9 % Normal 4.5-6.2 [facility] Comment on above: Performed By: #### H STROPN, BNP, LIPA, CMP, TSH #### [facility] [address] [place] [address] Dr. Alyson Rowley UA RANDOM W/MICROSCOPICon BACTERIA NONE SEEN Normal NONE SEEN [facility] Comment on above: Performed By: #### H STROPN, BNP, LIPA, CMP, TSH #### [facility] [address] [address] [address] Alyson Rowley Bilirubin Ql (U) Negative Normal NEGATIVE [facility] Comment on above: Performed By: #### H STROPN, BNP, LIPA, CMP, TSH #### [facility] [address] [address] [address] Alyson Rowley CAST SEEN Abnormal NONE SEEN [facility] Comment on above: Performed By: #### H STROPN, BNP, LIPA, CMP, TSH #### [facility] [address] [place] [address] Dr. Alyson Rowley Clarity (U) CLEAR Normal CLEAR [facility] Comment on above: Performed By: #### H STROPN, BNP, LIPA, CMP, TSH #### [facility] [address] [place] [address] Dr. Alyson Rowley Color (U) YELLOW Normal YELLOW [facility] Comment on above: Performed By: #### H STROPN, BNP, LIPA, CMP, TSH #### [facility] [address] [address] [address] Alyson Rowley Crystals LM Nom (Urine sed) NONE SEEN Normal NONE SEEN [facility] Comment on above: Performed By: #### H STROPN, BNP, LIPA, CMP, TSH #### [facility] [address] [address] [address] Alyson Rowley Epithelial cells LM Ql (Urine sed) FEW Abnormal NONE SEEN /RARE [facility] Comment on above: Performed By: #### H STROPN, BNP, LIPA, CMP, TSH #### [facility] [address] [address] [address] Alyson Rowley Glucose Ql (U) Negative Normal NEGATIVE [facility] Comment on above: Performed By: #### H STROPN, BNP, LIPA, CMP, TSH #### [facility] [address] [address] [address] Alyson Rowley Hemoglobin Ql (U) Negative Normal NEGATIVE [facility] Comment on above: Performed By: #### H STROPN, BNP, LIPA, CMP, TSH #### [facility] [address] [address] [address] Alyson Rowley Ketones Ql (U) TRACE Abnormal NEGATIVE [facility] Comment on above: Performed By: #### H STROPN, BNP, LIPA, CMP, TSH #### [facility] [address] [address] [address] Alyson Rowley LEUKOCYTES Negative Normal NEGATIVE [facility] Comment on above: Performed By: #### H STROPN, BNP, LIPA, CMP, TSH #### [facility] [address] [address] [address] Alyson Rowley MUCOUS NONE SEEN Normal NONE SEEN [facility] Comment on above: Performed By: #### H STROPN, BNP, LIPA, CMP, TSH #### [facility] [address] [address] [address] Alyson Rowley Nitrite Ql (U) Negative Normal NEGATIVE [facility] Comment on above: Performed By: #### H STROPN, BNP, LIPA, CMP, TSH #### [facility] [address] [address] [address] Alyson Rowley pH (U) 6.0 [pH] Normal 5-9 [facility] Comment on above: Performed By: #### H STROPN, BNP, LIPA, CMP, TSH #### [facility] [address] [place] [address] Dr. Alyson Rowley RBC 0-2 Normal 0-2 [facility] Comment on above: Performed By: #### H STROPN, BNP, LIPA, CMP, TSH #### [facility] [address] [place] [address] Dr. Alyson Rowley SPEC GRAVITY 1.015 Normal 1.005-<=1. 025 [facility] Comment on above: Performed By: #### H STROPN, BNP, LIPA, CMP, TSH #### [facility] [address] [place] [address] Dr. Alyson Rowley UA PROTEIN Negative Normal NEGATIVE/ TRACE [facility] Comment on above: Performed By: #### H STROPN, BNP, LIPA, CMP, TSH #### [facility] [address] [place] [address] Dr. Alyson Rowley Urobilinogen Qn (U) 0.2 {Karen'U}/dL Normal 0.2 - 1. 0 [facility] Comment on above: Performed By: #### H STROPN, BNP, LIPA, CMP, TSH #### [facility] [address] [place] [address] Dr. Alyson Rowley WBC 0-2 Abnormal NONE SEEN [facility] Comment on above: Performed By: #### H STROPN, BNP, LIPA, CMP, TSH #### [facility] [address] [place] [address] Dr. Alyson Rowley Office Visit (Cardiology)on 05-29-2022 [...] and no PND. Vitals Vital Signs Recorded: [id number] 03:06PM Heart Rate62, L Radial [id number], LUE, Sitting [id number], LUE, Sitting Height5 ft 2 in Skgsoe325 lb BMI Dakqiuagai25.57 kg/m2 BSA Calculated1.47 Tobacco Useb) No PHQ-2 [...] and affect . Signatures Avelino Berry MSN, LICENSED LIFE AND HEALTH AGENT-MANAGER TRADING, PMHNP-BC [facility] Please excuse any errors in grammar or transla (more content not included)... Normal [facility] Tobacco Screening.on 022 Adult depression screening assessment No [facility] 250 DO Work Phone: Fall risk assessment a) No falls within the last year [facility] 250 DO Work Phone: Tobacco use status CPHS b) No -[facility] 250 DO Work Phone: Urine culture routineOrdered By: Arely Dasilva on 05-13-2022 Bacteria identified Cx Nom (U) 2 Days [facility] Urinalysis - AUTOMATEDon Appearance (U) cloudy [employer] Other Bilirubin Ql (U) Negative 5 Minutes Other Color (U) yellow [email or web address] Other Glucose Ql (U) Negative [employer] Other Hemoglobin Ql (U) Negative [employer] Other Ketones Ql (U) Negative [employer] Other Leukocyte esterase Test strip Ql (U) trace [email or web address] Other Nitrite Ql (U) Negative [employer] Other pH (U) 5.5 [pH] [email or web address] Other Protein Ql (U) Negative [employer] Other Specific gravity (U) [Rel density] 1.010 [email or web address] Other Urobilinogen (U) [Mass/Vol] 0.2 mg/dL [email or web address] Other Urinalysis - AUTOMATED [email or web address] Other Falls Screening (Age 18+)on 04-18-2022 Adult depression screening assessment No [facility] 250 DO Work Phone: Fall risk assessment a) No falls within the last year [facility] [employer] y 250 DO Work Phone: Tobacco use status [facility] b) [facility] DO Work Phone: Office Visit (Cardiology)on 04-18-2022 Follow-up visit Diagnoses/Problems Assessed Dizziness (780.4) (R42) Hyperlipemia (272.4) (E78.5) Diabetes mellitus (250.00) (E11.9) Benign essential hypertension (401.1) (I10) Body mass index (BMI) of 19.9 or less in adult (Z68.1) Orders Body mass index (BMI) of 19.9 or less in adult Healthy Weight Tips; Status:Complete; Done: [id number] Dizziness Physical Therapy - Vestibular Referral Evaluation and Treatment Evaluate AND Treat dizziness Status: Hold For - Scheduling Requested for: [id number] Chris Kelly at [facility] Unlinked Stop: Lisinopril 5 MG Oral [...] contact the office if new symptoms arise. [employer] in 4 weeks 4. Referral to Chris [...] and no PND. Vitals Vital Signs Recorded: 18Apr2022 02:27PM Heart Rate56, L Radial Aymtvrrw738, LUE, Sitting Vihxoltyv71, LUE, Sitting Height5 ft 2 in Pjkwet366 lb BMI Noczqdzdfc15.94 kg/m2 BSA Calculated1.48 Tobacco Useb) No PHQ-2 [...] work of (more content not included)... Normal [facility] Activated partial thrombopla stin time (aPTT) in platelet poor plasma by coagulation aOrdered By: Mario Fontana on 04-14-2022 aPTT Coag (PPP) [Time] 35.5 s 25.1-36.5 [facility] Automated epithelial cells c ount in urine sediment (number/area)Ordered By: Mario Fontana on 04-14-2022 Epithelial cells Auto (Urine sed) [#/Area] 3-4 [HPF] 0-2 [facility] Automated erythrocytes count in urine sediment (number/area)Ordered By: Mario Fontana on 04-14-2022 RBC Auto (Urine sed) [#/Area] 0-1 [HPF] 0-4 [facility] Automated leukocytes count i n urine sediment (number/area)Ordered By: Mario Fontana on 04-14-2022 WBC Auto (Urine sed) [#/Area] 3-4 [HPF] 0-4 [facility] Automated urine hyaline cast s count (number/volume)Ordered By: Mario Fontana on 04-14-2022 Hyaline casts Auto (U) [#/Vol] None seen [LPF] 0-1 [facility] Basophils Auto (Bld) [#/Vol] Ordered By: Mario Fontana on 04-14-2022 Basophils (Bld) [#/Vol] 0.0 10*3/uL 0.0-0.2 [facility] Basophils/100 WBC Auto (Bld) Ordered By: Mario Fontana on 04-14-2022 Basophils/100 WBC (Bld) 0.6 % . [facility] Bilirubin Test strip Ql (U)O rdered By: Mario Fontana on 04-14-2022 Bilirubin Ql (U) Negative Negative [facility] Blood hemoglobin measurement (mass/volume)Ordered By: Mario Fontana on 04-14-2022 Hemoglobin (Bld) [Mass/Vol] 13.7 g/dL 11.8-15.4 [facility] Blood leukocytes automated c ount (number/volume)Ordered By: Mario Fontana on 04-14-2022 WBC (Bld) [#/Vol] 5.7 10*3/uL 4.5-11.[address] [facility] Body fluid albumin measureme nt (mass/volume)Ordered By: Mario Fontana on 04-14-2022 Albumin (Body fld) [Mass/Vol] 4.0 g/dL 3.2-5.5 [facility] Color Auto (U)Ordered By: Hung Fontana on 04-14-2022 Color (U) Yellow Yellow [facility] Creatinine and Glomerular fi ltration rate.predicted panel (S/P/Bld)Ordered By: Mario Fontana on 04-14-2022 Creatinine [Mass/Vol] 0.71 mg/dL 0.44-1.03 [facility] Eosinophils Auto (Bld) [#/Vo l]Ordered By: Mario Fontana on 04-14-2022 Eosinophils (Bld) [#/Vol] 0.1 10*3/uL 0.0-0.45 [facility] Eosinophils/100 WBC Auto (Bl d)Ordered By: Mario Fontana on 04-14-2022 Eosinophils/100 WBC (Bld) 2.2 % . [facility] Erythrocyte distribution wid th Auto (RBC) [Ratio]Ordered By: Mario Fontana on 04-14-2022 Erythrocyte distribution width (RBC) [Ratio] 13.3 % 11.9-15.3 [facility] Estimated glomerular filtrat ion rate (GFR) non- AmericanOrdered By: Mario Fontana on 04-14-2022 GFR/1.73 sq M.predicted among non-blacks MDRD (S/P/Bld) [Vol rate/Area] > 60 mL/Min [facility] Globulin Calc (S) [Mass/Vol] Ordered By: Mario Fontana on 04-14-2022 Globulin (S) [Mass/Vol] 2.7 g/dL [facility] Hematocrit Auto (Bld) [Volum e fraction]Ordered By: Mario Fontana on 04-14-2022 Hematocrit (Bld) [Volume fraction] 40.9 % 34.0-46.4 [facility] Ketones Auto test strip (U) [Mass/Vol]Ordered By: Mario Fontana on 04-14-2022 Ketones (U) [Mass/Vol] Negative Negative [facility] Laboratory - Chemistry and C hemistry - challengeOrdered By: Mario Fontana on 04-14-2022 Natriuretic peptide B (Bld) [Mass/Vol] 102.0 pg/mL 5-100 [facility] Laboratory - CoagulationOrde red By: Mario Fontana on 04-14-2022 PT Coag (PPP) [Time] 13.3 s 9.0-12.9 [facility] Laboratory - Hematology and Cell countsOrdered By: Mario Fontana on 04-14-2022 Nucleated RBC/100 WBC (Bld) [Ratio] 0.0 % 0-0.5 [facility] Lymphocytes Auto (Bld) [#/Vo l]Ordered By: Mario Fontana on 04-14-2022 Lymphocytes (Bld) [#/Vol] 1.6 10*3/uL 1.00-4.8 [facility] Lymphocytes/100 WBC Auto (Bl d)Ordered By: Mario Fontana on 04-14-2022 Lymphocytes/100 WBC (Bld) 28.5 % . [facility] MCH Auto (RBC) [Entitic mass ]Ordered By: Mario Fontana on 04-14-2022 MCH (RBC) [Entitic mass] 28.2 pg 24.7-34.3 [facility] MCHC Auto (RBC) [Mass/Vol]Or dered By: aMrio Fontana on 04-14-2022 MCHC (RBC) [Mass/Vol] 33.4 g/dL 32.0-35.0 [facility] MCV Auto (RBC) [Entitic vol] Ordered By: Mario Fontana on 04-14-2022 MCV (RBC) [Entitic vol] 84.5 fL 80-100 [facility] Monocytes Auto (Bld) [#/Vol] Ordered By: Mario Fontana on 04-14-2022 Monocytes (Bld) [#/Vol] 0.5 10*3/uL 0.0-0.8 [facility] Monocytes/100 WBC Auto (Bld) Ordered By: Mario Fontana on 04-14-2022 Monocytes/100 WBC (Bld) 8.7 % . [facility] Neutrophils Auto (Bld) [#/Vo l]Ordered By: Mario Fontana on 04-14-2022 Neutrophils (Bld) [#/Vol] 3.4 10*3/uL 1.8-7.7 [facility] Neutrophils/100 WBC Auto (Bl d)Ordered By: Mario Fontana on 04-14-2022 Neutrophils/100 WBC (Bld) 60.0 % . [facility] Nitrite Test strip Ql (U)Ord ered By: Mario Fontana on 04-14-2022 Nitrite Ql (U) Negative Negative [facility] No Panel InformationOrdered By: Mario Fontana on 04-14-2022 Estimated GFR () > 60 mL/Min [facility] Comment on above: GFR estimated refere nce range: According to KDOQI guidelines, <60 ml/min/1.73m2 is sufficient to diagnose a patient with chronic kidney disease. Pharmacy Creatinine Clearance (Chem 43.37 [facility] Platelet mean volume Auto (B ld) [Entitic vol]Ordered By: Mario Fontana on 04-14-2022 Platelet mean volume (Bld) [Entitic vol] 8.3 fL 6.3-10.7 [facility] Platelet poor plasma interna tional normalized ratio (INR) by coagulation assay (relatOrdered By: Mario Fontana on 04-14-2022 INR Coag (PPP) [Relative time] 1.2 {INR} [facility] Comment on above: INR Therapeutic Rang e [...] 04-14-2022 Platelets (Bld) [#/Vol] 195 10*3/uL 150-450 [facility] Protein Auto test strip (U) [Mass/Vol]Ordered By: Mario Fontana on 04-14-2022 Protein (U) [Mass/Vol] Negative Negative [facility] Protein [Mass/volume] in Ser um or PlasmaOrdered By: Mario Fontana on 04-14-2022 Protein [Mass/Vol] 6.7 g/dL 6.1-7.[address] [facility] RBC Auto (Bld) [#/Vol]Ordere d By: Mario Fontana on 04-14-2022 RBC (Bld) [#/Vol] 4.84 10*6/uL 3.60-5.00 [facility] Serum or plasma alanine gorman otransferase measurement without P-5'-P (enzymatic activiOrdered By: Mario Fontana on 04-14-2022 ALT No additional P-5'-P [Catalytic activity/Vol] 18 U/L 10-60 [facility] Serum or plasma albumin/glob ulin mass ratioOrdered By: Mario Fontana on 04-14-2022 Albumin/Globulin [Mass ratio] 1.5 {ratio} [facility] Serum or plasma alkaline sarita sphatase measurement (enzymatic activity/volume)Ordered By: Mario Fontana on 04-14-2022 ALP [Catalytic activity/Vol] 44 U/L 32-92 [facility] Serum or plasma aspartate am inotransferase measurement (enzymatic activity/volume)Ordered By: Mario Fontana on 04-14-2022 AST [Catalytic activity/Vol] 22 U/L 10-42 [facility] Serum or plasma calcium luna urement (mass/volume)Ordered By: Mario Fontana on 04-14-2022 Calcium [Mass/Vol] 9.7 mg/dL 8.2-10.[address] [facility] Serum or plasma chloride haider surement (moles/volume)Ordered By: Mario Fontana on 04-14-2022 Chloride [Moles/Vol] 97 mmol/L 95-114 [facility] Serum or plasma glucose luna urement (mass/volume)Ordered By: Mario Fontana on 04-14-2022 Glucose [Mass/Vol] 114 mg/dL 70-[address] [facility] Comment on above: ADA recommended refe rence range Random Glucose Reference Range is dependent on time and content of last meal. Glucose of more than 200 mg/dL in a nonstressed, ambulatory subject supports the diagnosis of Diabetes Mellitus. Serum or plasma potassium me asurement (moles/volume)Ordered By: Mario Fontana on 04-14-2022 Potassium [Moles/Vol] 4.2 mmol/L 3.5-5.1 [facility] Serum or plasma sodium measu rement (moles/volume)Ordered By: Mario Fontana on 04-14-2022 Sodium [Moles/Vol] 134 mmol/L 136-[address] [facility] Serum or plasma total biliru bin measurement (mass/volume)Ordered By: Mario Fontana on 04-14-2022 Bilirubin [Mass/Vol] 0.7 mg/dL 0.3-1.2 [facility] Serum or plasma total carbon dioxide measurement (moles/volume)Ordered By: Mario Fontana on 04-14-2022 CO2 [Moles/Vol] 32.0 mmol/L 22.0-30.0 [facility] Serum or plasma urea nitroge n measurement (mass/volume)Ordered By: Mario Fontana on 04-14-2022 Urea nitrogen [Mass/Vol] 11 mg/dL 07-06 [facility] Specific gravity Auto test s trip (U) [Rel density]Ordered By: Mario Fontana on 04-14-2022 Specific gravity (U) [Rel density] 1.006 1.001-1.03 0 [facility] Troponin I.cardiac [Mass/vol ume] in Serum or Plasma by High sensitivity methodOrdered By: Mario Fontana on 04-14-2022 Troponin I.cardiac High sensitivity method [Mass/Vol] 3 pg/mL 0-15 [facility] Urine bacteria detection by automated methodOrdered By: Mario Fontana on 04-14-2022 Bacteria Auto Ql (U) None seen None Seen [facility] Urine clarity by refractomet ry automatedOrdered By: Mario Fontana on 04-14-2022 Clarity Refractometry automated (U) Clear Clear [facility] Urine glucose measurement by automated test strip (mass/volume)Ordered By: Mario Fontana on 04-14-2022 Glucose Auto test strip (U) [Mass/Vol] Normal mg/dL Normal [facility] Urine hemoglobin detection b y automated test stripOrdered By: Mario Fontana on 04-14-2022 Hemoglobin Auto test strip Ql (U) Negative Negative [facility] Urine leukocyte esterase det ection by automated test stripOrdered By: Mario Fontana on 04-14-2022 Leukocyte esterase Auto test strip Ql (U) 2+ Negative [facility] Urobilinogen Auto test strip (U) [Mass/Vol]Ordered By: Mario Fontana on 04-14-2022 Urobilinogen (U) [Mass/Vol] Normal mg/dL Normal [facility] pH Auto test strip (U)Ordere d By: Mario Fontana on 04-14-2022 pH (U) 7.0 [pH] 5.0-9.0 [facility] VC COMP CONSULTATIONon 03-28 VC COMP CONSULTATION Patient: JOSE VICENTE Exam Date: 03/28/2022 : 1940 Gender:F Ordering : DR BENNY VICK . Admission #: [id number] Family : Order #: [id number] CLICK HERE TO VIEW EXAM RADIOLOGY REPORT [...] M.D. on 03/28/2022 at 14:10 Normal [facility] VC VENOUS REFLUX STAR LMTon 0 03-28-2022 VC VENOUS REFLUX STAR LMT Patient: MARITZA VICENTE Exam Date: 03/28/2022 : 1940 Gender:F Ordering : DR BENNY VICK . Admission #: [id number] Family : Order #: [id number] CLICK HERE TO VIEW EXAM RADIOLOGY REPORT [...] or chronic thrombus Compressibility: Normal. Flow: Normal. Well Surveying Engineer: None. Tech Note: Thigh extention of SSV. Mid/medial calf varicose vein measures 2.5 mm without reflux. CONCLUSION: 1. No significant dilation or incompetency of the superficial veins of the right and left lower extremity. Dictated by: Camryn Corbin M.D. on 03/28/2022 at 13:36 Approved by: Camryn Corbin M.D. on 03/28/2022 at 13:37 Normal [facility] Urinalysis - AUTOMATEDon Appearance (U) cloudy [employer] Other Bilirubin Ql (U) Negative 5 Minutes Other Color (U) yellow [email or web address] Other Glucose Ql (U) Negative [employer] Other Hemoglobin Ql (U) Negative [employer] Other Ketones Ql (U) Negative [employer] Other Leukocyte esterase Test strip Ql (U) trace [email or web address] Other Nitrite Ql (U) Negative [employer] Other pH (U) 5.5 [pH] [email or web address] Other Protein Ql (U) 30 [employer] Other Specific gravity (U) [Rel density] 1.020 [email or web address] Other Urobilinogen (U) [Mass/Vol] 0.2 mg/dL [email or web address] Other Urinalysis - AUTOMATED [email or web address] Other Tobacco Screening.on 021 Fall risk assessment b) One or more fall s in the last year [facility] [employer] [facility] 250 DO Work Phone: Heart Rate Normal [facility] [employer] y 250 DO Work Phone: Tobacco use status CPHS b) No -[facility] 250 DO Work Phone: Vital Signs Date Time Vital Sign Value Performing Clinician Facility 04-07-2025 13:53-0400 Body height 157.5 cm Miller Lee MD Work Phone: [facility] 04-07-2025 13:53-0400 Body mass index (BMI) [Ratio] 20.49 kg/m2 Miller Lee MD Work Phone: [facility] 04-07-2025 13:53-0400 Body weight 50.8 kg Miller Lee MD Work Phone: [facility] 04-07-2025 13:53-0400 Diastolic blood pressure 64 mm[Hg] Miller Lee MD Work Phone: [facility] 04-07-2025 13:53-0400 Heart rate 66 /min Miller Lee MD Work Phone: [facility] 04-07-2025 13:53-0400 Systolic blood pressure 119 mm[Hg] Miller Lee MD Work Phone: [facility] 03-18-2025 14:06-0400 Body height 157.5 cm Jackie Adan [employer] Work Phone: [facility] 03-18-2025 14:06-0400 Body mass index (BMI) [Ratio] 20.49 kg/m2 Jackie Adan [employer] Work Phone: [facility] 03-18-2025 14:06-0400 Body weight 50.8 kg Jackie Adan [employer] Work Phone: [facility] 03-18-2025 14:06-0400 Diastolic blood pressure 58 mm[Hg] Jackie Adan [employer] Work Phone: [facility] 03-18-2025 14:06-0400 Heart rate 61 /min Jackie Adan [employer] Work Phone: [facility] 03-18-2025 14:06-0400 Respiratory rate 16 /min Jackie Adan [employer] Work Phone: [facility] 03-18-2025 14:06-0400 SaO2% (BldA) [Mass fraction] 98 % Jackie Antionette [employer] Work Phone: [facility] 03-18-2025 14:06-0400 Systolic blood pressure 110 mm[Hg] Jackie Antionette [employer] Work Phone: [facility] 02-25-2025 15:01-0400 Body height 157.5 cm Jackie Antionette [employer] Work Phone: [facility] 02-25-2025 15:01-0400 Body mass index (BMI) [Ratio] 20.89 kg/m2 Jackie Register [employer] Work Phone: [facility] 02-25-2025 15:01-0400 Body weight 51.8 kg Jackie Register [employer] Work Phone: [facility] 02-25-2025 15:01-0400 Diastolic blood pressure 62 mm[Hg] Jackie Antionette [employer] Work Phone: [facility] 02-25-2025 15:01-0400 Heart rate 58 /min Jackie Register [employer] Work Phone: [facility] 02-25-2025 15:01-0400 Respiratory rate 16 /min Jackie Register [employer] Work Phone: [facility] 02-25-2025 15:01-0400 SaO2% (BldA) [Mass fraction] 98 % Jackie Register [employer] Work Phone: [facility] 02-25-2025 15:01-0400 Systolic blood pressure 122 mm[Hg] Jackie Register [employer] Work Phone: [facility] 10-15-2024 16:05-0500 Body height 157.5 cm Jackie Antionette [employer] Work Phone: [facility] 10-15-2024 16:05-0500 Body mass index (BMI) [Ratio] 19.57 kg/m2 Jackie Antionette [employer] Work Phone: [facility] 01-02-2025 16:05-0500 Body weight 48.53 kg Jackie Antionette [employer] Work Phone: [facility] 10-15-2024 16:05-0500 Diastolic blood pressure 50 mm[Hg] Jackie Antionette [employer] Work Phone: [facility] 10-15-2024 16:05-0500 Heart rate 56 /min Jackie Antionette [employer] Work Phone: [facility] 10-15-2024 16:05-0500 Respiratory rate 16 /min Jackie Antionette [employer] Work Phone: [facility] 10-15-2024 16:05-0500 SaO2% (BldA) [Mass fraction] 98 % Jackie Register [employer] Work Phone: [facility] 10-15-2024 16:05-0500 Systolic blood pressure 92 mm[Hg] Jackie Register [employer] Work Phone: [facility] 09-16-2024 09:56-0500 Body height 157.5 cm Jackie Register [employer] Work Phone: [facility] 09-16-2024 09:56-0500 Body mass index (BMI) [Ratio] 19.35 kg/m2 Jackie Register [employer] Work Phone: [facility] 09-16-2024 09:56-0500 Body weight 47.99 kg Jackie Register [employer] Work Phone: [facility] 09-16-2024 09:56-0500 Diastolic blood pressure 60 mm[Hg] Jackie Antionette [employer] Work Phone: [facility] 09-16-2024 09:56-0500 Heart rate 58 /min Jackie Register [employer] Work Phone: [facility] 09-16-2024 09:56-0500 Respiratory rate 16 /min Jackie Register [employer] Work Phone: [facility] 09-16-2024 09:56-0500 SaO2% (BldA) [Mass fraction] 99 % Jackie Register [employer] Work Phone: [facility] 09-16-2024 09:56-0500 Systolic blood pressure 118 mm[Hg] Jackie Adan [employer] Work Phone: [facility] 09-09-2024 13:09-0500 Body mass index (BMI) [Ratio] 19.2 kg/m2 Kim Erin PA Work Phone: [facility] 09-09-2024 13:09-0500 Body weight 47.63 kg Kim Slime PA Work Phone: [facility] 09-09-2024 13:09-0500 Diastolic blood pressure 58 mm[Hg] Kim Slime PA Work Phone: [facility] 09-09-2024 13:09-0500 Systolic blood pressure 90 mm[Hg] Kim Erin PA Work Phone: [facility] 08-26-2024 14:32-0500 Body mass index (BMI) [Ratio] 19.57 kg/m2 Kim Erin PA Work Phone: [facility] 08-26-2024 14:32-0500 Body weight 48.53 kg Kim Erin PA Work Phone: [facility] 08-26-2024 14:32-0500 Diastolic blood pressure 62 mm[Hg] Kim Erin PA Work Phone: [facility] 08-26-2024 14:32-0500 Systolic blood pressure 110 mm[Hg] Kim Slime PA Work Phone: [facility] 06-25-2024 14:35-0400 Body height 157.5 cm Jackie Adan [employer] Work Phone: [facility] 06-25-2024 14:35-0400 Body mass index (BMI) [Ratio] 18.55 kg/m2 Jackie Adan [employer] Work Phone: [facility] 06-25-2024 14:35-0400 Body weight 45.99 kg Jackie Adan [employer] Work Phone: [facility] 06-25-2024 14:35-0400 Diastolic blood pressure 68 mm[Hg] Jackie Adan [employer] Work Phone: [facility] 06-25-2024 14:35-0400 Heart rate 64 /min Jackie Adan [employer] Work Phone: [facility] 06-25-2024 14:35-0400 SaO2% (BldA) [Mass fraction] 98 % Jackie Adan [employer] Work Phone: [facility] 06-25-2024 14:35-0400 Systolic blood pressure 128 mm[Hg] Jackie Adan [employer] Work Phone: [facility] 06-17-2024 14:21-0400 Diastolic blood pressure 68 mm[Hg] Rell Goodrich MD Work Phone: [facility] 06-17-2024 14:21-0400 Heart rate 61 /min Rell Goodrich MD Work Phone: [facility] 06-17-2024 14:21-0400 Systolic blood pressure 132 mm[Hg] Rell Goodrich MD Work Phone: [facility] 06-17-2024 14:20-0400 Body height 154.9 cm Rell Goodrich MD Work Phone: [facility] 06-17-2024 14:20-0400 Body mass index (BMI) [Ratio] 18.89 kg/m2 Rell Goodrich MD Work Phone: [facility] 06-17-2024 14:20-0400 Body weight 45.36 kg Rell Goodrich MD Work Phone: [facility] 2024 11:25-0400 Body height 157.5 cm Jackie Adan [employer] Work Phone: [facility] 2024 11:25-0400 Body mass index (BMI) [Ratio] 18.29 kg/m2 Jackie Adan [employer] Work Phone: [facility] 2024 11:25-0400 Body weight 45.36 kg Jackie Adan [employer] Work Phone: [facility] 2024 11:25-0400 Diastolic blood pressure 68 mm[Hg] Jackie Rajanvely [employer] Work Phone: [facility] 2024 11:25-0400 Heart rate 64 /min Jackie Register [employer] Work Phone: [facility] 2024 11:25-0400 SaO2% (BldA) [Mass fraction] 95 % Jackie Adan [employer] Work Phone: [facility] 2024 11:25-0400 Systolic blood pressure 134 mm[Hg] Jackie Adan [employer] Work Phone: [facility] 05-10-2024 22:00-0400 Diastolic blood pressure 65 mm[Hg] II Wilian Moreno Work Phone: [facility] 05-10-2024 22:00-0400 Heart rate 55 /min II Wilian Moreno Work Phone: [facility] 05-10-2024 22:00-0400 Respiratory rate 18 /min II Wilian Moreno Work Phone: [facility] 05-10-2024 22:00-0400 SaO2% (BldA) [Mass fraction] 96 % II Wilian Moreno Work Phone: [facility] 05-10-2024 22:00-0400 Systolic blood pressure 125 mm[Hg] II Wilian Moreno Work Phone: [facility] 05-10-2024 19:04-0400 Body temperature 97.5 [degF] II Wilian Mroeno Work Phone: [facility] 05-10-2024 18:19-0400 Body height 157.48 cm II Wilian Moreno Work Phone: [facility] 05-10-2024 18:19-0400 Body weight 46 kg II Wilianever Moreno Work Phone: [facility] 02-28-2024 16:29-0400 Heart rate 59 /min II Wilian Moreno Work Phone: [facility] 02-28-2024 16:21-0400 Body height 157.48 cm II Wilian Moreno Work Phone: [facility] 02-28-2024 16:21-0400 Body weight 46 kg II Wilian Moreno Work Phone: [facility] 02-28-2024 16:19-0400 Body temperature 97.4 [degF] II Wilian Moreno Work Phone: [facility] 02-28-2024 16:19-0400 Diastolic blood pressure 59 mm[Hg] II Wilian Moreno Work Phone: [facility] 02-28-2024 16:19-0400 Respiratory rate 16 /min II Wilian Moreno Work Phone: [facility] 02-28-2024 16:19-0400 SaO2% (BldA) [Mass fraction] 99 % II Wilian Moreno Work Phone: [facility] 02-28-2024 16:19-0400 Systolic blood pressure 125 mm[Hg] II Wilian Moreno Work Phone: [facility] 12-31-2023 14:36-0400 Body height 157.48 cm II Wilian Moreno Work Phone: [facility] 12-31-2023 14:24-0400 Body mass index (BMI) [Ratio] 18.4 kg/m2 II Wilian Moreno Work Phone: [facility] 12-31-2023 14:24-0400 Body weight 45.81 kg II Wilian Moreno Work Phone: [facility] 11-21-2023 00:44-0500 Heart rate 59 /min II Wilian Moreno Work Phone: [facility] 11-21-2023 00:43-0500 Diastolic blood pressure 67 mm[Hg] II Wilian Moreno Work Phone: [facility] 11-21-2023 00:43-0500 Respiratory rate 20 /min II Wilian Moreno Work Phone: [facility] 11-21-2023 00:43-0500 SaO2% (BldA) [Mass fraction] 99 % II Wilian Moreno Work Phone: [facility] 11-21-2023 00:43-0500 Systolic blood pressure 144 mm[Hg] II Wilian Moreno Work Phone: [facility] 11-20-2023 23:04-0500 Body height 157.48 cm II Wilian Moreno Work Phone: [facility] 11-20-2023 23:04-0500 Body temperature 98.3 [degF] II Wilian Moreno Work Phone: [facility] 11-20-2023 23:04-0500 Body weight 46.72 kg II Wilian Moreno Work Phone: [facility] 08-24-2023 00:30-0500 Diastolic blood pressure 67 mm[Hg] II Wilian Moreno Work Phone: [facility] 08-24-2023 00:30-0500 Heart rate 62 /min II Wilian Moreno Work Phone: [facility] 08-24-2023 00:30-0500 Respiratory rate 20 /min II Wilian Moreno Work Phone: [facility] 08-24-2023 00:30-0500 SaO2% (BldA) [Mass fraction] 99 % II Wilian Moreno Work Phone: [facility] 08-24-2023 00:30-0500 Systolic blood pressure 154 mm[Hg] II Wilian Moreno Work Phone: [facility] 08-23-2023 21:00-0500 Body height 157.48 cm II Wilian Moreno Work Phone: [facility] 08-23-2023 21:00-0500 Body temperature 97.5 [degF] II Wilian Moreno Work Phone: [facility] 08-23-2023 21:00-0500 Body weight 44.2 kg II Wilian Moreno Work Phone: [facility] 07-10-2023 13:23-0400 Body height 157.5 cm Wilian Moreno MD Work Phone: [facility] 07-10-2023 13:23-0400 Body mass index (BMI) [Ratio] 17.56 kg/m2 Wilian Moreno MD Work Phone: [facility] 07-10-2023 13:23-0400 Body weight 43.55 kg Wilian Moreno MD Work Phone: [facility] 07-10-2023 13:23-0400 Diastolic blood pressure 68 mm[Hg] Wilian Moreno MD Work Phone: [facility] 07-10-2023 13:23-0400 Heart rate 64 /min Wilian Moreno MD Work Phone: [facility] 07-10-2023 13:23-0400 SaO2% (BldA) [Mass fraction] 99 % Wilian Moreno MD Work Phone: [facility] 07-10-2023 13:23-0400 Systolic blood pressure 126 mm[Hg] Wilian Moreno MD Work Phone: [facility] 04-30-2023 14:00-0400 Body height 157.48 cm Mark Win Other [employer] Other 04-30-2023 14:00-0400 Body mass index (BMI) [Ratio] 17.19 kg/m2 Mark Win Other [employer] Other 04-30-2023 14:00-0400 Body weight 42.64 kg Mark Win Other [employer] Other 04-30-2023 14:00-0400 Diastolic blood pressure 50 mm[Hg] Mark Win Other [employer] Other 04-30-2023 14:00-0400 Systolic blood pressure 101 mm[Hg] Mark Win Other [employer] Other 03-12-2023 15:15-0400 Body height 157.48 cm Mark Win Other [employer] Other 03-12-2023 15:15-0400 Body mass index (BMI) [Ratio] 17.01 kg/m2 Mark Win Other [employer] Other 03-12-2023 15:15-0400 Body weight 42.18 kg Mark Win Other [employer] Other 03-12-2023 15:15-0400 Diastolic blood pressure 48 mm[Hg] Mark Win Other [employer] Other 03-12-2023 15:15-0400 Systolic blood pressure 99 mm[Hg] Mark Win Other [employer] Other 02-12-2023 11:21-0400 Diastolic blood pressure 55 mm[Hg] [employer] Alexia Oleg Work Phone: [facility] 02-12-2023 11:21-0400 Heart rate 63 /min [employer] IN[employer]STIGATOR-[employer] Alexia Oleg Work Phone: [facility] 02-12-2023 11:21-0400 Respiratory rate 16 /min [employer] IN[employer]ATOR-[employer] Alexia Oleg Work Phone: [facility] 02-12-2023 11:21-0400 SaO2% (BldA) [Mass fraction] 98 % [employer] IN[employer] Alexia Oleg Work Phone: [facility] 02-12-2023 11:21-0400 Systolic blood pressure 126 mm[Hg] [employer] IN[employer]STIGATOR-C Alexia Oleg Work Phone: [facility] 02-12-2023 08:04-0400 Body height 157.48 cm [employer]ING INVESTIGATOR-C Alexia Oleg Work Phone: [facility] 02-12-2023 08:04-0400 Body temperature 97.6 [degF] [employer]ING INVESTIGATOR-C Alexia Oleg Work Phone: [facility] 02-12-2023 08:04-0400 Body weight 42.63 kg [employer] INVESTIGATOR-C Alexia Oleg Work Phone: [facility] 02-01-2023 11:58-0400 Diastolic blood pressure 59 mm[Hg] [employer] IN[employer]STIGATOR-[employer] Alexia Oleg Work Phone: [facility] 02-01-2023 11:58-0400 Heart rate 64 /min [employer] IN[employer]ST[employer]ATOR-[employer] Alexia Oleg Work Phone: [facility] 02-01-2023 11:58-0400 Respiratory rate 16 /min [employer] IN[employer]ST[employer]ATOR-[employer] Alexia Oleg Work Phone: [facility] 02-01-2023 11:58-0400 SaO2% (BldA) [Mass fraction] 99 % [employer] IN[employer] Alexia Oleg Work Phone: [facility] 02-01-2023 11:58-0400 Systolic blood pressure 125 mm[Hg] [employer] INVESTIGATOR-C Alexia Oleg Work Phone: [facility] 02-01-2023 07:42-0400 Body height 157.48 cm [employer] INVESTIGATOR-C Alexia Oleg Work Phone: [facility] 02-01-2023 07:42-0400 Body temperature 97.7 [degF] [employer] INVESTIGATOR-C Alexia Oleg Work Phone: [facility] 02-01-2023 07:42-0400 Body weight 45 kg [employer] INVEST[employer]ATOR-C Alexia Dejesus Work Phone: [facility] 01-21-2023 09:11-0400 Body height 157.48 cm Alexia Dejesus Work Phone: [facility] DO Work Phone: 01-21-2023 09:11-0400 Body mass index (BMI) [Ratio] 18.38 kg/m2 Alexia Dejesus Work Phone: [facility] DO Work Phone: 01-21-2023 09:11-0400 Body surface area Derived from formula 1.43 m2 Alexia Dejesus Work Phone: [facility] DO Work Phone: 01-21-2023 09:11-0400 Body weight 45.59 kg Alexia Tuckerault Work Phone: [facility] DO Work Phone: 01-21-2023 09:11-0400 Diastolic blood pressure 60 mm[Hg] Alexia Tuckerault Work Phone: [facility] DO Work Phone: 01-21-2023 09:11-0400 Heart rate 60 /min Alexiacuco Tuckerault Work Phone: [facility] DO Work Phone: 01-21-2023 09:11-0400 Systolic blood pressure 110 mm[Hg] Alexia Arreola Oleg Work Phone: [facility] DO Work Phone: 01-01-2023 15:45-0400 Body height 157.48 cm Guy Hudson Other [employer] Other 01-01-2023 15:45-0400 Body mass index (BMI) [Ratio] 18.84 kg/m2 Guy Hudson Other [employer] Other 01-01-2023 15:45-0400 Body weight 46.72 kg Guy Hudson Other [employer] Other 01-01-2023 15:45-0400 Diastolic blood pressure 74 mm[Hg] Guy Hudson Other [employer] Other 01-01-2023 15:45-0400 Systolic blood pressure 132 mm[Hg] Guy Anishisabelle Other [employer] Other 12-12-2022 16:05-0500 Diastolic blood pressure 83 mm[Hg] [facility] 12-12-2022 16:05-0500 Heart rate 60 /min [facility] 12-12-2022 16:05-0500 Respiratory rate 20 /min [facility] 12-12-2022 16:05-0500 SaO2% (BldA) [Mass fraction] 97 % [facility] 12-12-2022 16:05-0500 Systolic blood pressure 137 mm[Hg] [facility] 12-12-2022 13:25-0500 Body height 157.48 cm [facility] 12-12-2022 13:25-0500 Body temperature 97.8 [degF] [facility] 12-12-2022 13:25-0500 Body weight 47 kg [facility] 12-04-2022 14:15-0500 Body height 157.48 cm Mark Win Other [facility] [employer] Other 12-04-2022 14:15-0500 Body mass index (BMI) [Ratio] 18.65 kg/m2 Mark Win Other [employer] Other 12-04-2022 14:15-0500 Body weight 46.27 kg Mark Win Other [employer] Other 12-04-2022 14:15-0500 Diastolic blood pressure 60 mm[Hg] Mark Win Other [employer] Other 12-04-2022 14:15-0500 Systolic blood pressure 128 mm[Hg] Mark Win Other [employer] Other 11-29-2022 13:00-0500 Body height 157.48 cm Alexia Oleg Other [employer] Other 11-29-2022 13:00-0500 Body mass index (BMI) [Ratio] 18.47 kg/m2 Alexia Oleg Other [employer] Other 11-29-2022 13:00-0500 Body temperature 97.8 [degF] Alexia Oleg Other [employer] Other 11-29-2022 13:00-0500 Body weight 45.81 kg Alexia Oleg Other [employer] Other 11-29-2022 13:00-0500 Diastolic blood pressure 70 mm[Hg] Alexia Dejesus Other [employer] Other 11-29-2022 13:00-0500 Respiratory rate 18 /min Alexia Dejesus Other [employer] Other 11-29-2022 13:00-0500 SaO2% (BldA) [Mass fraction] 99 % Alexia Dejesus Other [facility] [employer] Other 11-29-2022 13:00-0500 Systolic blood pressure 138 mm[Hg] Alexia Dejesus Other [employer] Other 11-14-2022 02:08-0500 Diastolic blood pressure 75 mm[Hg] [facility] 11-14-2022 02:08-0500 Heart rate 56 /min [facility] 11-14-2022 02:08-0500 Respiratory rate 18 /min [facility] 11-14-2022 02:08-0500 SaO2% (BldA) [Mass fraction] 100 % [facility] 11-14-2022 02:08-0500 Systolic blood pressure 135 mm[Hg] [facility] 11-13-2022 23:25-0500 Body height 157.48 cm [facility] 11-13-2022 23:25-0500 Body temperature 97.5 [degF] [facility] 11-13-2022 23:25-0500 Body weight 48.55 kg [facility] 10-30-2022 15:26-0500 Blood Pressure Location Haile DAVIS [facility] 10-30-2022 15:26-0500 Diastolic blood pressure 72 mm[Hg] Haile DAVIS [facility] 10-30-2022 15:26-0500 Systolic blood pressure 115 mm[Hg] Haile DAVIS [facility] 10-26-2022 15:40-0500 Body height 157.48 cm Arely Dasilva Other [facility] [employer] Other 01-13-2023 15:40-0500 Body mass index (BMI) [Ratio] 18.87 kg/m2 Arely Dasilva Other [employer] Other 10-26-2022 15:40-0500 Body temperature 97.4 [degF] Arely Dasilva Other [employer] Other 10-26-2022 15:40-0500 Body weight 46.81 kg Arely Dasilva Other [employer] Other 10-26-2022 15:40-0500 Diastolic blood pressure 57 mm[Hg] Arely Dasilva Other [employer] Other 10-26-2022 15:40-0500 Respiratory rate 18 /min Arely Dasilva Other [employer] Other 10-26-2022 15:40-0500 SaO2% (BldA) [Mass fraction] 98 % Arely Dasilva Other [employer] Other 10-26-2022 15:40-0500 Systolic blood pressure 126 mm[Hg] Arely Dasilva Other [employer] Other 10-08-2022 14:00-0500 Body height 157.48 cm Alexia Oleg Other [employer] Other 10-08-2022 14:00-0500 Body mass index (BMI) [Ratio] 19.17 kg/m2 Alexia Dejesus Other [employer] Other 10-08-2022 14:00-0500 Body temperature 97.6 [degF] Alexia Dejesus Other [employer] Other 10-08-2022 14:00-0500 Body weight 47.54 kg Alexia Dejesus Other [employer] Other 10-08-2022 14:00-0500 Diastolic blood pressure 52 mm[Hg] Alexia Dejesus Other [employer] Other 10-08-2022 14:00-0500 Respiratory rate 18 /min Alexia Dejesus Other [employer] Other 10-08-2022 14:00-0500 SaO2% (BldA) [Mass fraction] 98 % Alexia Dejesus Other [employer] Other 10-08-2022 14:00-0500 Systolic blood pressure 111 mm[Hg] Alexia Dejesus Other [employer] Other 09-25-2022 10:15-0500 Body height 157.48 cm Janelle Diontehunter Other [employer] Other 09-21-2022 00:49-0500 Diastolic blood pressure 71 mm[Hg] [facility] 09-21-2022 00:49-0500 Heart rate 66 /min [facility] 09-21-2022 00:49-0500 Respiratory rate 16 /min [facility] 09-21-2022 00:49-0500 SaO2% (BldA) [Mass fraction] 98 % [facility] 09-21-2022 00:49-0500 Systolic blood pressure 169 mm[Hg] [facility] 09-20-2022 20:22-0500 Body height 157.48 cm [facility] 09-20-2022 20:22-0500 Body temperature 98.1 [degF] [facility] 09-20-2022 20:22-0500 Body weight 46.9 kg [facility] 08-09-2022 16:30-0400 Body height 157.48 cm Alexia Tuckerault Other [employer] Other 08-09-2022 16:30-0400 Body mass index (BMI) [Ratio] 18.65 kg/m2 Alexia Oleg Other [employer] Other 08-09-2022 16:30-0400 Body temperature 97.5 [degF] Alexia Tuckerault Other [employer] Other 08-09-2022 16:30-0400 Body weight 46.27 kg Alexia Tuckerault Other [employer] Other 08-09-2022 16:30-0400 Diastolic blood pressure 58 mm[Hg] Alexia Oleg Other [employer] Other 08-09-2022 16:30-0400 Respiratory rate 16 /min Alexia Oleg Other [employer] Other 08-09-2022 16:30-0400 SaO2% (BldA) [Mass fraction] 97 % Alexia Oleg Other [employer] Other 08-09-2022 16:30-0400 Systolic blood pressure 114 mm[Hg] Alexia Oleg Other [employer] Other 07-23-2022 16:00-0400 Body height 157.48 cm Alexia Oleg Other [employer] Other 07-23-2022 16:00-0400 Body mass index (BMI) [Ratio] 18.65 kg/m2 Alexia Oleg Other [employer] Other 07-23-2022 16:00-0400 Body temperature 97.7 [degF] Alexia Dejesus Other [employer] Other 07-23-2022 16:00-0400 Body weight 46.27 kg Alexia Dejesus Other [employer] Other 07-23-2022 16:00-0400 Diastolic blood pressure 49 mm[Hg] Alexia Dejesus Other [employer] Other 07-23-2022 16:00-0400 Respiratory rate 18 /min Alexia Dejesus Other [employer] Other 07-23-2022 16:00-0400 SaO2% (BldA) [Mass fraction] 99 % Alexia Dejesus Other [employer] Other 07-23-2022 16:00-0400 Systolic blood pressure 99 mm[Hg] Alexia Dejesus Other [employer] Other 07-16-2022 11:00-0400 Body height 157.48 cm Alexia Dejesus Other [employer] Other 07-16-2022 11:00-0400 Body mass index (BMI) [Ratio] 19.2 kg/m2 Alexia Dejesus Other [employer] Other 07-16-2022 11:00-0400 Body temperature 97.8 [degF] Alexia Tuckerault Other [employer] Other 07-16-2022 11:00-0400 Body weight 47.63 kg Alexia Dejesus Other [employer] Other 07-16-2022 11:00-0400 Diastolic blood pressure 58 mm[Hg] Alexia Dejesus Other [employer] Other 07-16-2022 11:00-0400 Respiratory rate 18 /min Alexia Dejesus Other [employer] Other 07-16-2022 11:00-0400 SaO2% (BldA) [Mass fraction] 98 % Alexia Dejesus Other [employer] Other 07-16-2022 11:00-0400 Systolic blood pressure 113 mm[Hg] Alexia Dejesus Other [employer] Other 07-14-2022 19:45-0400 Diastolic blood pressure 55 mm[Hg] MD Benny Vick Work Phone: [facility] 07-14-2022 19:45-0400 Heart rate 59 /min MD Benny Vick Work Phone: [facility] 07-14-2022 19:45-0400 Respiratory rate 18 /min MD Benny Vick Work Phone: [facility] 07-14-2022 19:45-0400 SaO2% (BldA) [Mass fraction] 98 % MD Benny Vick Work Phone: [facility] 07-14-2022 19:45-0400 Systolic blood pressure 110 mm[Hg] MD Benny Vick Work Phone: [facility] 07-14-2022 17:32-0400 Body height 157.48 cm MD Benny Vick Work Phone: [facility] 07-14-2022 17:32-0400 Body temperature 97.3 [degF] MD Benny Vick Work Phone: [facility] 07-14-2022 17:32-0400 Body weight 46.26 kg MD Benny Vick Work Phone: [facility] 07-14-2022 11:33-0400 Body temperature 97.2 [degF] MD Benny Vick Work Phone: [facility] 07-14-2022 11:33-0400 Diastolic blood pressure 58 mm[Hg] MD Benny Vick Work Phone: [facility] 07-14-2022 11:33-0400 Heart rate 65 /min MD Benny Vick Work Phone: [facility] 07-14-2022 11:33-0400 Respiratory rate 20 /min MD Benny Vick Work Phone: [facility] 07-14-2022 11:33-0400 SaO2% (BldA) [Mass fraction] 99 % MD Benny Vick Work Phone: [facility] 07-14-2022 11:33-0400 Systolic blood pressure 102 mm[Hg] MD Benny Vick Work Phone: [facility] 07-14-2022 06:26-0400 Body height 157.48 cm MD Benny Vick Work Phone: [facility] 07-14-2022 06:26-0400 Body temperature 97.6 [degF] MD Benny Vick Work Phone: [facility] 07-14-2022 06:26-0400 Body weight 45.7 kg MD Benny Vick Work Phone: [facility] 07-14-2022 06:26-0400 Diastolic blood pressure 62 mm[Hg] MD Benny Vick Work Phone: [facility] 07-14-2022 06:26-0400 Heart rate 65 /min MD Benny Vick Work Phone: [facility] 07-14-2022 06:26-0400 Respiratory rate 18 /min MD Benny Vick Work Phone: [facility] 07-14-2022 06:26-0400 SaO2% (BldA) [Mass fraction] 97 % MD Benny Vick Work Phone: [facility] 07-14-2022 06:26-0400 Systolic blood pressure 150 mm[Hg] MD Benny Vick Work Phone: [facility] 07-09-2022 15:00-0400 Body height 157.48 cm Alexia Dejesus Other [employer] Other 07-09-2022 15:00-0400 Body mass index (BMI) [Ratio] 19.2 kg/m2 Alexia Dejesus Other [employer] Other 07-09-2022 15:00-0400 Body temperature 98 [degF] Alexia Dejesus Other [employer] Other 07-09-2022 15:00-0400 Body weight 47.63 kg Alexia Dejesus Other [employer] Other 07-09-2022 15:00-0400 Diastolic blood pressure 55 mm[Hg] Alexia Dejesus Other [employer] Other 07-09-2022 15:00-0400 Respiratory rate 18 /min Alexia Dejesus Other [employer] Other 07-09-2022 15:00-0400 SaO2% (BldA) [Mass fraction] 98 % Alexia Dejesus Other [facility] [employer] Other 07-09-2022 15:00-0400 Systolic blood pressure 126 mm[Hg] Alexia Dejesus Other [facility] [employer] Other 06-29-2022 12:00-0400 84 1 Benny Vick Work Phone: [facility] DO Work Phone: Comment on above: [id number] 06-20-2022 23:29-0400 Heart rate 60 /min MD Benny Vick Work Phone: [facility] 06-20-2022 21:28-0400 Body height 157.48 cm MD Benny Vick Work Phone: [facility] 06-20-2022 21:28-0400 Body temperature 97.6 [degF] MD Benny Vick Work Phone: [facility] 06-20-2022 21:28-0400 Body weight 48.6 kg MD Benny Vick Work Phone: [facility] 06-20-2022 21:28-0400 Diastolic blood pressure 79 mm[Hg] MD Benny Vick Work Phone: [facility] 06-20-2022 21:28-0400 Respiratory rate 20 /min MD Benny Vick Work Phone: [facility] 06-20-2022 21:28-0400 SaO2% (BldA) [Mass fraction] 97 % MD Benny Vick Work Phone: [facility] 06-20-2022 21:28-0400 Systolic blood pressure 195 mm[Hg] MD Benny Vick Work Phone: [facility] 06-11-2022 22:11-0400 Heart rate 64 /min MD Benny Vick Work Phone: [facility] 06-11-2022 21:55-0400 Body height 157.48 cm MD Benny Vick Work Phone: [facility] 06-11-2022 21:55-0400 Body temperature 97.6 [degF] MD Benny Vick Work Phone: [facility] 06-11-2022 21:55-0400 Body weight 48.08 kg MD Benny Vick Work Phone: [facility] 06-11-2022 21:55-0400 Diastolic blood pressure 82 mm[Hg] MD Benny Vick Work Phone: [facility] 06-11-2022 21:55-0400 Respiratory rate 18 /min MD Benny Vick Work Phone: [facility] 06-11-2022 21:55-0400 SaO2% (BldA) [Mass fraction] 96 % MD Benny Vick Work Phone: [facility] 06-11-2022 21:55-0400 Systolic blood pressure 121 mm[Hg] MD Benny Vick Work Phone: [facility] 05-29-2022 15:06-0400 Body height 157.48 cm Benny Vick Work Phone: [facility] DO Work Phone: 05-29-2022 15:06-0400 Body mass index (BMI) [Ratio] 19.57 kg/m2 Benny Vick Work Phone: [facility] DO Work Phone: 05-29-2022 15:06-0400 Body surface area Derived from formula 1.47 m2 Benny iVck Work Phone: [facility] DO Work Phone: 05-29-2022 15:06-0400 Body weight 48.54 kg Benny Ivey Naderer Work Phone: [facility] 250 DO Work Phone: 05-29-2022 15:06-0400 Diastolic blood pressure 62 mm[Hg] Benny Ivey Naderer Work Phone: [facility] DO Work Phone: 05-29-2022 15:06-0400 Heart rate 62 /min Benny Ivey Naderer Work Phone: [facility] DO Work Phone: 05-29-2022 15:06-0400 Systolic blood pressure 130 mm[Hg] Benny Ivey Naderer Work Phone: [facility] 250 DO Work Phone: 05-11-2022 14:55-0400 Body height 157.48 cm Arely Dasilva Other [employer] Other 05-11-2022 14:55-0400 Body mass index (BMI) [Ratio] 19.86 kg/m2 Arely Dasilva Other [employer] Other 05-11-2022 14:55-0400 Body temperature 97.1 [degF] Arely Dasilva Other [employer] Other 05-11-2022 14:55-0400 Body weight 49.26 kg Arely Dasilva Other [employer] Other 05-11-2022 14:55-0400 Diastolic blood pressure 58 mm[Hg] Arely Dasilva Other [employer] Other 05-11-2022 14:55-0400 Respiratory rate 18 /min Arely Dasilva Other [employer] Other 05-11-2022 14:55-0400 SaO2% (BldA) [Mass fraction] 98 % Arely Dasilva Other [employer] Other 05-11-2022 14:55-0400 Systolic blood pressure 112 mm[Hg] Arely Dasilva Other [employer] Other 04-18-2022 14:27-0400 Body height 157.48 cm Benny A Naderer Work Phone: [facility] DO Work Phone: 04-18-2022 14:27-0400 Body mass index (BMI) [Ratio] 19.94 kg/m2 Benny A Naderer Work Phone: [facility] DO Work Phone: 04-18-2022 14:27-0400 Body surface area Derived from formula 1.48 m2 Benny A Naderer Work Phone: [facility] DO Work Phone: 04-18-2022 14:27-0400 Body weight 49.44 kg Benny A Naderer Work Phone: [facility] DO Work Phone: 04-18-2022 14:27-0400 Diastolic blood pressure 68 mm[Hg] Benny A Naderer Work Phone: [facility] DO Work Phone: 04-18-2022 14:27-0400 Heart rate 56 /min Benny A Naderer Work Phone: [facility] DO Work Phone: 04-18-2022 14:27-0400 Systolic blood pressure 132 mm[Hg] Benny A Naderer Work Phone: [facility] DO Work Phone: 04-14-2022 19:00-0400 Diastolic blood pressure 70 mm[Hg] MD Benny Vick Work Phone: [facility] 04-14-2022 19:00-0400 Heart rate 60 /min MD Benny Vick Work Phone: [facility] 04-14-2022 19:00-0400 Respiratory rate 18 /min MD Benny Vick Work Phone: [facility] 04-14-2022 19:00-0400 SaO2% (BldA) [Mass fraction] 99 % MD Benny Vick Work Phone: [facility] 04-14-2022 19:00-0400 Systolic blood pressure 130 mm[Hg] MD Benny Vick Work Phone: [facility] 04-14-2022 16:43-0400 Body temperature 97.5 [degF] MD Benny Vick Work Phone: [facility] 04-14-2022 16:42-0400 Body height 157.48 cm MD Benny Vick Work Phone: [facility] 04-14-2022 16:42-0400 Body mass index (BMI) [Ratio] 19.7 kg/m2 MD Benny Vick Work Phone: [facility] 04-14-2022 16:42-0400 Body weight 48.98 kg MD Benny Vick Work Phone: [facility] 01-07-2022 12:30-0400 Body height 157.48 cm Alexia Dejesus Other [facility] [employer] Other 01-07-2022 12:30-0400 Body mass index (BMI) [Ratio] 20.23 kg/m2 Alexia Dejesus Other [email or web address] Other 01-07-2022 12:30-0400 Body temperature 97.6 [degF] Alexia Dejesus Other [email or web address] Other 01-07-2022 12:30-0400 Body weight 50.17 kg Alexia Dejesus Other [email or web address] Other 01-07-2022 12:30-0400 Diastolic blood pressure 45 mm[Hg] Alexia Dejesus Other [email or web address] Other 01-07-2022 12:30-0400 Respiratory rate 18 /min Alexia Dejesus Other [email or web address] Other 01-07-2022 12:30-0400 SaO2% (BldA) [Mass fraction] 97 % Alexia Dejesus Other [email or web address] Other 01-07-2022 12:30-0400 Systolic blood pressure 120 mm[Hg] Alexia Dejesus Other [email or web address] Other 09-22-2021 15:30-0500 Body height 157.48 cm Nitza Blossom Other [email or web address] Other 09-22-2021 15:30-0500 Body mass index (BMI) [Ratio] 19.93 kg/m2 Nitza Blossom Other [email or web address] Other 09-22-2021 15:30-0500 Body temperature 96.8 [degF] Nitza Blossom Other [email or web address] Other 09-22-2021 15:30-0500 Body weight 49.44 kg Nitza Cerrato Other [email or web address] Other 09-22-2021 15:30-0500 Respiratory rate 18 /min Nitza Cerrato Other [email or web address] Other 09-22-2021 15:30-0500 SaO2% (BldA) [Mass fraction] 98 % Nitza Cerrato Other [email or web address] Other 07-19-2021 13:56-0400 Body height 157.48 cm Benny A Naderer Work Phone: [employer] DO Work Phone: 07-19-2021 13:56-0400 Body mass index (BMI) [Ratio] 20.27 kg/m2 Benny A Naderer Work Phone: [facility] [employer] DO Work Phone: 07-19-2021 13:56-0400 Body surface area Derived from formula 1.49 m2 Benny A Naderer Work Phone: [facility] [employer] DO Work Phone: 07-19-2021 13:56-0400 Body weight 50.26 kg Benny A Naderer Work Phone: [facility] [employer] DO Work Phone: 07-19-2021 13:56-0400 Diastolic blood pressure 78 mm[Hg] Benny A Naderer Work Phone: [facility] [employer] DO Work Phone: 07-19-2021 13:56-0400 Heart rate 64 /min Benny A Naderer Work Phone: [facility] [employer] DO Work Phone: 07-19-2021 13:56-0400 Systolic blood pressure 132 mm[Hg] Benny Uche Vick Work Phone: [facility] 250 DO Work Phone: Encounters Encounter Date Encounter Type Care Provider Facility Start: 04-13-2026 ambulatory Haile DAVIS Facili ty:[facility] Start: 04-14-2025 End: 04-14-2025 ambulatory Haile DAVIS Facility: [facility] Start: 04-14-2025 End: 04-14-2025 Patient encounter procedure Haile DAVIS [facility] Start: 04-07-2025 End: 04-07-2025 Bamerasmo Lee MD Work Phone: [facility] Start: 04-07-2025 End: 04-07-2025 Bamgaetanoo fred Lee MD Work Phone: [facility] Start: 04-07-2025 End: 04-07-2025 Office outpatient new 45 minutes Miller Lee MD Work Phone: [facility] Comment on above: Acute otalgia, right (Primary Dx); Multiple perforations of right tympanic membrane Start: 04-07-2025 End: 04-07-2025 ambulatory MILLER LEE Not Available Start: 03-18-2025 End: 03-18-2025 Assay of hemosiderin, quant Jackie Adan [employer] Work Phone: [facility] Start: 03-18-2025 End: 03-18-2025 Patient encounter procedure Jackie Adan [employer] Work Phone: [facility] Comment on above: Routine general medi kandi examination at health care facility (Primary Dx); Generalized anxiety disorder (CMS/HCC); Osteopenia of multiple sites; Type 2 diabetes mellitus with hypoglycemia without coma, without long-term current use of insulin (CMS/HCC); Cervical spondylosis; Gastroesophageal reflux disease without esophagitis; Mixed hyperlipidemia (CMS/HCC); Vitamin D deficiency; Irritable bowel syndrome with diarrhea; Cervical disc disorder with radiculopathy; Age-related cataract of both eyes, unspecified age-related cataract type; Mass of breast, unspecified laterality; Primary insomnia; Lesion of liver; Chronic bilateral low back pain, unspecified whether sciatica present; Neuropathy; Primary hypertension (CMS/HCC); Diverticulosis of colon; Screening for thyroid disorder; Underweight Start: 03-18-2025 End: 03-18-2025 ambulatory JACKIE ADAN Not Available Start: 02-25-2025 End: 02-25-2025 Office outpatient visit 25 minutes Jackie Adan [employer] Work Phone: [facility] Comment on above: Acute gastritis with hemorrhage, unspecified gastritis type (Primary Dx) Start: 02-25-2025 End: 02-25-2025 ambulatory JACKIE ADAN Not Available Start: 02-25-2025 End: 02-25-2025 Bamboo flowsheet Jackie Adan [employer] Work Phone: [facility] Start: 02-25-2025 End: 02-25-2025 Bamboo flowsheet Jackie Adan [employer] Work Phone: [facility] Start: 01-27-2025 End: 01-27-2025 Patient encounter procedure Jackie Adan [employer]-C Work Phone: [facility] Work Phone: Start: 01-27-2025 End: 01-27-2025 ambulatory Jackie Adan Facility:[facility] Start: 01-05-2025 End: 01-05-2025 ambulatory JACKIE ADAN Not Available Start: 11-03-2024 End: 11-03-2024 Orders Only Jackie Adan [employer] Work Phone: [facility] Comment on above: Type 2 diabetes jordy itus with hypoglycemia without coma, without long-term current use of insulin (CMS/HCC) Start: 10-15-2024 End: 10-15-2024 Office outpatient visit 25 minutes Jackie Adan [employer] Work Phone: [facility] Comment on above: Diabetic mononeuropa thy associated with type 2 diabetes mellitus (HCC) ([facility]/HCC) (Primary Dx); Type 2 diabetes mellitus with hypoglycemia without coma, without long-term current use of insulin (CMS/HCC); Type 2 diabetes mellitus with diabetic cataract (CMS/HCC); Primary hypertension (CMS/HCC) Start: 10-15-2024 End: 10-15-2024 ambulatory JACKIE ADAN Not Available Start: 10-15-2024 End: 10-15-2024 Bamboo flowsheet Jackie Adan [employer] Work Phone: [facility] Start: 10-15-2024 End: 10-15-2024 Bamboo flowsheet Jackie Adan [employer] Work Phone: [facility] Start: 09-30-2024 End: 09-30-2024 ambulatory Guy Hudson Facility:[facility] Start: 09-16-2024 End: 09-16-2024 Bamboo flowsheet Jackie Adan [employer] Work Phone: [facility] Start: 09-16-2024 End: 09-16-2024 Bamboo flowsheet Jackie Adan [employer] Work Phone: [facility] Start: 09-16-2024 End: 09-16-2024 Office outpatient visit 25 minutes Jackie Adan [employer] Work Phone: [facility] Comment on above: Acute gastric ulcer, unspecified whether gastric ulcer hemorrhage or perforation present (Primary Dx); Gastroesophageal reflux disease, unspecified whether esophagitis present Start: 09-16-2024 End: 09-16-2024 ambulatory JACKIE ADAN Not Available Start: 09-09-2024 End: 09-09-2024 Bamboo flowsheet Kim REYNOSO Work Phone: [facility] Start: 09-09-2024 End: 09-09-2024 Bamboo flowsheet Kim REYNOSO Work Phone: [facility] Start: 09-09-2024 End: 09-09-2024 Office outpatient visit 15 minutes Kim REYNOSO Work Phone: [facility] Comment on above: Encounter for follow -up; Vaginal burning; Vaginal pain Start: 09-09-2024 End: 09-09-2024 ambulatory KIM SLIME Not Available Start: 08-31-2024 End: 08-31-2024 Patient encounter procedure Wilian Moreno II Work Phone: [facility] [place] Work Phone: Start: 08-31-2024 End: 08-31-2024 ambulatory Wilian Moreno II Work Phone: [facility] Work Phone: Start: 08-26-2024 End: 08-26-2024 Office outpatient visit 15 minutes Kim REYNOSO Work Phone: [facility] Comment on above: Vaginal burning; Vaginal pain Start: 08-26-2024 End: 08-29-2024 External Result Encounter Kim REYNOSO Work Phone: [facility] Unsolicited Start: 08-26-2024 End: 08-29-2024 External Result Encounter Kim REYNOSO Work Phone: [facility] Unsolicited Start: 08-26-2024 End: 08-26-2024 ambulatory KIM PALENCIA Not Available Start: 06-25-2024 End: 06-25-2024 Office outpatient visit 25 minutes Jackie Adan [employer] Work Phone: [facility] Comment on above: Hyponatremia (Primar y Dx); Primary hypertension (CMS/HCC) Start: 06-25-2024 End: 06-25-2024 ambulatory JACKIE ADAN Not Available Start: 06-25-2024 End: 06-25-2024 Bamboo flowsheet Jackie Adan [employer] Work Phone: [facility] Start: 06-25-2024 End: 06-25-2024 Bamboo flowsheet Jackie Adan [employer] Work Phone: [facility] Start: 06-21-2024 End: 06-21-2024 Emergency department [facility] Start: 06-21-2024 End: 06-21-2024 Emergency department patient visit NOLVIA Copelandasimuche [facility] Start: 06-18-2024 End: 06-18-2024 ambulatory [facility] Start: 06-17-2024 End: 06-17-2024 Office consultation new/estab patient 60 min Rell Goodrich MD Work Phone: [facility] Comment on above: Dizziness (Primary D x); Essential hypertension; Orthostatic hypotension; BMI less than 19,adult; Never smoked tobacco; Bradycardia Start: 06-17-2024 End: 06-17-2024 ambulatory [facility] Start: 2024 End: 2024 Bamboo flowsheet Jackie Adan [employer] Work Phone: [facility] Start: 2024 End: 2024 Bamboo flowsheet Jackie Adan [employer] Work Phone: [facility] Start: 2024 End: 2024 Office outpatient visit 25 minutes Jackie Adan [employer] Work Phone: [facility] Comment on above: Type 2 diabetes jordy itus with hypoglycemia without coma, without long-term current use of insulin ([facility]) (Primary Dx); Sinus bradycardia, persistent; Episodic lightheadedness; Weakness generalized Start: 2024 End: 2024 ambulatory JACKIE ADAN Not Available Start: 06-03-2024 End: 06-03-2024 Patient encounter procedure II Wilian Moreno Work Phone: [facility] [place] Work Phone: Start: 06-03-2024 End: 06-03-2024 ambulatory II Wilian Josh Work Phone: [facility] Work Phone: Start: 05-22-2024 End: 05-22-2024 Lab Drop off Haile DAVIS [facility] Start: 05-22-2024 End: 05-22-2024 ambulatory Haile R RYAN Facility:[facility] Start: 05-22-2024 End: 05-22-2024 Patient encounter procedure Haile DAVIS [facility] Start: 05-12-2024 End: 05-12-2024 ambulatory Haile Tanisha RYAN Facility: [facility] Start: 05-12-2024 End: 05-12-2024 Patient encounter procedure Haile DAVIS [facility] [place] Start: 05-10-2024 End: 05-10-2024 Emergency department patient visit II Wilian Moreno Work Phone: [facility] Work Phone: Start: 04-30-2024 End: 04-30-2024 ambulatory JACKIE ADAN Not Available Start: 04-23-2024 End: 04-23-2024 ambulatory JACKIE ADAN Not Available Start: 02-28-2024 End: 02-28-2024 Emergency department patient visit II Wilian Moreno Work Phone: [facility] Work Phone: Start: 12-31-2023 End: 12-31-2023 ambulatory II Wilian Moreno Work Phone: [facility] Work Phone: Start: 12-31-2023 End: 12-31-2023 Patient encounter procedure II Wilian Moreno Work Phone: [facility] Work Phone: Start: 11-20-2023 End: 11-21-2023 Emergency department patient visit II Wilian Moreno Work Phone: [facility] Work Phone: Start: 11-20-2023 End: 11-20-2023 Patient encounter procedure II Wilian Moreno Work Phone: [facility] Work Phone: Start: 11-04-2023 End: 11-04-2023 ambulatory Hailesadaf DAVIS Facility:[facility] Start: 11-04-2023 End: 11-04-2023 Patient encounter procedure Haile Garay DAVIS [facility] Start: 10-23-2023 End: 10-23-2023 ambulatory Mark Win Other [email or web address] Other Start: 10-23-2023 Telephone encounter Mark bello [facility] Start: 08-23-2023 End: 08-24-2023 Emergency department patient visit II Wilian Moreno Work Phone: [facility] Work Phone: Start: 07-10-2023 End: 07-10-2023 Office outpatient visit 15 minutes Wilian Moreno MD Work Phone: [facility] Comment on above: Primary hypertension (CMS/HCC) (Primary Dx); Type 2 diabetes mellitus with hypoglycemia without coma, without long-term current use of insulin (CMS/HCC) Start: 04-30-2023 End: 04-30-2023 ambulatory Mark Win Other [email or web address] Other Start: 04-30-2023 Office outpatient vi sit 15 minutes Mark Win [facility] Start: 03-27-2023 End: 03-27-2023 ambulatory Mark Win Other [email or web address] Other Start: 03-27-2023 Telephone encounter Mark bello [facility] Start: 03-19-2023 End: 03-19-2023 ambulatory Mark Win Other [email or web address] Other Start: 03-19-2023 Telephone encounter Mark bello [facility] Start: 03-12-2023 End: 03-12-2023 ambulatory Mark Win Other [email or web address] Other Start: 03-12-2023 Office outpatient vi sit 15 minutes Mark Win [facility] Start: 03-07-2023 End: 03-07-[address] [facility] Facility: Start: 02-22-2023 End: 02-22-2023 ambulatory Janelle Hernandez Other [email or web address] Other Start: 02-22-2023 Telephone encounter Janelle Hernandez [facility] Start: 02-20-2023 End: 02-20-2023 ambulatory Mark Win Other [email or web address] Other Start: 02-20-2023 Telephone encounter Mark Jenkinsramírezuche bello [facility] Start: 02-14-2023 End: 02-14-2023 ambulatory Mark Win Other [email or web address] Other Start: 02-14-2023 Telephone encounter Mark Harryuche bello [facility] Start: 02-12-2023 End: 02-12-2023 Admission to same day surgery center [employer] HOUSING INVESTIGATOR-C Alexia Dejesus Work Phone: [facility] Work Phone: Start: 02-12-2023 End: 02-12-2023 ambulatory RENT AND HOUSING INVESTIGATOR-C Alexia Dejesus Work Phone: [facility] Work Phone: Start: 02-07-2023 End: 02-07-2023 ambulatory Mark Win Other [email or web address] Other Start: 02-07-2023 Telephone encounter Mark bello [facility] Start: 02-01-2023 ambulatory Ms. Alexia Dejesus Facility:[id number] Start: 02-01-2023 [facility], Provider: Rory Rosas, Status: Pen, Time: 9:00 AM Alexia Dejesus Work Phone: [facility] 250 DO Work Phone: Start: 02-01-2023 End: 02-01-2023 Admission to same day surgery center RENT AND HOUSING INVESTIGATOR-C Alexia Oleg Work Phone: [facility]Band Machine Operator Work Phone: Start: 02-01-2023 End: 02-01-2023 ambulatory RENT AND HOUSING INVESTIGATOR-C Alexia Oleg Work Phone: [facility] Work Phone: Start: 01-30-2023 Chart Update Alexia franklin Work Phone: [facility] 250 DO Work Phone: Start: 01-30-2023 End: 01-30-2023 ambulatory RENT AND HOUSING INVESTIGATOR-C Alexia Tuckerault Work Phone: [facility] Work Phone: Start: 01-30-2023 End: 01-30-2023 Patient encounter procedure R[employer] AND HOUSING INVESTIGATOR-C Alexia Oleg Work Phone: [facility] [facility] Work Phone: Start: 01-25-2023 End: 01-25-2023 Lab Drop off ALEXIA DEJESUS [facility] Start: 01-22-2023 End: 01-22-2023 ambulatory Mark Win Other [email or web address] Other Start: 01-22-2023 Telephone encounter Mark bello [facility] Start: 01-21-2023 Office outpatient vi sit 25 minutes Alexia Dejesus Work Phone: [facility] 250 DO Work Phone: Start: 01-21-2023 ambulatory Avelino Berry Facility:1 [id number] Start: 01-19-2023 End: 01-20-2023 ambulatory MAYTE DAVILA . Facility:[facility] Start: 01-11-2023 End: 01-11-[address] GLORIA FLAHERTY . Facility:[facility] Start: 01-01-2023 End: 01-01-2023 ambulatory Guy Hudson Other [email or web address] Other Start: 01-01-2023 Office outpatient vi sit 15 minutes Guy Hudson [facility] Start: 12-26-2022 End: 12-26-2022 ambulatory Mark Win Other [email or web address] Other Start: 12-26-2022 Telephone encounter Mark bello [facility] Start: 12-21-2022 End: 12-22-[address] Ghulam WIN Facility:[facility] Start: 12-20-2022 End: 12-20-2022 ambulatory Alexia Dejesus Other [employer] Other Start: 12-20-2022 Telephone encounter Alexia harrison [facility] Start: 12-17-2022 End: 12-17-2022 ambulatory NON STAFF [facility] Work Phone: Start: 12-17-2022 End: 12-17-2022 Patient encounter procedure [facility] [place] Work Phone: Start: 12-12-2022 End: 12-12-2022 Emergency department patient visit [facility] Work Phone: Start: 12-11-2022 End: 12-11-2022 ambulatory Alexia Dejesus Other [email or web address] Other Start: 12-11-2022 Telephone encounter Alexia Breaul t [facility] Start: 12-04-2022 End: 12-04-2022 ambulatory Alexia Oleg Other [email or web address] Other Start: 12-04-2022 Office outpatient vi sit 25 minutes Mark Win [facility] Start: 12-04-2022 Telephone encounter Alexia Breaul t [facility] Start: 11-29-2022 End: 11-29-2022 ambulatory Alexia Oleg Other [email or web address] Other Start: 11-29-2022 Office outpatient vi sit 15 minutes Alexia Oleg [facility] Start: 11-13-2022 End: 11-14-2022 Emergency department patient visit [facility] Work Phone: Start: 11-10-2022 End: 11-10-2022 ambulatory Alexia Oleg Other [email or web address] Other Start: 11-10-2022 Telephone encounter Alexia Breaul t [facility] Start: 11-05-2022 End: 11-05-2022 ambulatory Alexia Oleg Other [email or web address] Other Start: 11-05-2022 Telephone encounter Alexia Breaul t [facility] Start: 11-03-2022 End: 11-03-2022 ambulatory ALEXIA OLEG Facility:[facility] Start: 10-30-2022 End: 10-30-2022 Patient encounter procedure Haile DAVIS [facility] Start: 10-29-2022 End: 10-29-2022 ambulatory NON STAFF [facility] Work Phone: Start: 10-29-2022 End: 10-29-2022 Patient encounter procedure [facility] [place] Work Phone: Start: 10-28-2022 End: 10-28-2022 ambulatory Arely Dasilva Other [employer] Other Start: 10-28-2022 Telephone encounter Arely Dasilva [facility] [address] Start: 10-26-2022 End: 10-26-2022 Departed Referred [facility] [place] Work Phone: Start: 10-26-2022 End: 10-26-2022 ambulatory NON STAFF [facility] Work Phone: Start: 10-26-2022 Office outpatient vi sit 15 minutes Arely Dasilva [facility] Start: 10-26-2022 Telephone encounter Alexia Breaul t [facility] Start: 10-19-2022 End: 10-19-2022 ambulatory Alexia Oleg Other [email or web address] Other Start: 10-19-2022 Telephone encounter Alexia Breaul t [facility] Start: 10-10-2022 End: 10-10-2022 ambulatory Alexia Oleg Other [email or web address] Other Start: 10-10-2022 Telephone encounter Alexia Breaul t [facility] Start: 10-08-2022 Office outpatient vi sit 15 minutes Alexia Oleg [facility] Start: 10-08-2022 End: 10-08-2022 ambulatory NON STAFF [facility] Work Phone: Start: 10-08-2022 End: 10-08-2022 Departed Referred [facility] [place] Work Phone: Start: 09-25-2022 (Tool Clerk) Tool Clerk Janelle Fitt [facility] Start: 09-25-2022 End: 09-25-2022 ambulatory Janelle Hernandez Other [email or web address] Other Start: 09-25-2022 Registered Recurring Chantal [facility] Work Phone: Start: 09-20-2022 End: 09-21-2022 Emergency department patient visit [facility] Start: 09-20-2022 End: 09-20-2022 ambulatory Alexia Oleg Other [email or web address] Other Start: 09-20-2022 Telephone encounter Alexia Doylel t [facility] Start: 09-11-2022 End: 09-12-2022 ambulatory ALEXIA OLEG Facility:[facility] Start: 09-02-2022 End: 09-02-2022 ambulatory ALEXIA OLEG Facility:[facility] Start: 08-20-2022 End: 08-20-2022 ambulatory Alexia Oleg Other [email or web address] Other Start: 08-20-2022 Telephone encounter Alexia Doylel t [facility] Start: 08-09-2022 End: 08-09-2022 ambulatory Alexia Oleg Other [email or web address] Other Start: 08-09-2022 Office outpatient vi sit 25 minutes Alexia Oleg [facility] Start: 08-02-2022 End: 08-02-2022 ambulatory Alexia Oleg Other [email or web address] Other Start: 08-02-2022 Telephone encounter Alexia Breaul t [facility] Start: 07-27-2022 End: 07-27-2022 ambulatory Alexia Oleg Other [email or web address] Other Start: 07-27-2022 Telephone encounter Alexia Breaul t [facility] Start: 07-26-2022 End: 07-26-2022 Patient encounter procedure LAWRENCEISELA MERCADO [facility] Start: 07-24-2022 End: 07-24-[address] PRIMITIVO HOPKINS . [employer] Other Start: 07-24-2022 Telephone encounter Alexia Breaul t [facility] Start: 07-23-2022 End: 07-23-2022 ambulatory Alexia Oleg Other [email or web address] Other Start: 07-23-2022 Office outpatient vi sit 25 minutes Alexia Oleg [facility] Start: 07-19-2022 End: 07-19-2022 ambulatory Alexia Oleg Other [email or web address] Other Start: 07-19-2022 Telephone encounter Alexia Breaul t [facility] Start: 07-18-2022 End: 07-18-2022 ambulatory Alexia Oleg Other [email or web address] Other Start: 07-18-2022 Telephone encounter Alexia Breaul t [facility] Start: 07-17-2022 End: 07-17-2022 ambulatory Alexia Oleg Other [email or web address] Other Start: 07-17-2022 Telephone encounter Alexia Breaul t [facility] Start: 07-16-2022 Office outpatient vi sit 15 minutes Alexia Oleg [facility] Start: 07-16-2022 Telephone encounter Alexia Breaul t [facility] Start: 07-16-2022 End: 07-16-2022 ambulatory MD Benny Vick Work Phone: [employer] Other Start: 07-16-2022 End: 07-16-2022 Departed Referred MD Benny Vick Work Phone: [facility] [place] Start: 07-15-2022 End: 07-15-2022 ambulatory Alexia Dejesus Other [employer] Other Start: 07-15-2022 Telephone encounter Alexia Siu t [facility] Start: 07-14-2022 End: 07-14-2022 Emergency department patient visit MD Benny Vick Work Phone: [facility] Start: 07-14-2022 End: 07-14-2022 Evaluation and management of inpatient MD Benny Vick Work Phone: [facility] [place] [address] Surgical Start: 07-14-2022 End: 07-14-2022 observation encounter MD Benny Vick Work Phone: [facility] Work Phone: Start: 07-12-2022 End: 07-12-2022 ambulatory Alexia Dejesus Other [employer] Other Start: 07-12-2022 Telephone encounter Alexia harrison [facility] Start: 07-09-2022 End: 07-10-2022 ambulatory ALEXIA DEJESUS [facility] [employer] Other Start: 07-09-2022 Office outpatient vi sit 15 minutes Alexia Dejesus [facility] [place] Start: 07-05-2022 Chart Update Benny Vick Work Phone: [facility] 250 DO Work Phone: Start: 06-29-2022 ambulatory Ms. Avelino Berry Facilit [id number] Start: 06-22-2022 Telephone encounter Benny serrato Work Phone: [facility] 250 DO Work Phone: Start: 06-20-2022 End: 06-20-2022 Emergency department patient visit MD Benny Vick Work Phone: [facility] Start: 06-19-2022 End: 06-19-[address] BENNY VICK Facility:H1 Start: 06-13-2022 End: 06-14-[address] NISHA BERRY Facility:H1 Start: 06-12-2022 End: 06-13-2022 ambulatory SHAIKH Jennifer GALLARDO Facility:H1 Start: 06-11-2022 End: 06-12-2022 Emergency department patient visit MD Benny Vick Work Phone: [facility] Start: 05-29-2022 ambulatory Avelino Berry Facility:1 [id number] Start: 05-16-2022 Telephone encounter Benny serrato Work Phone: [facility] DO Work Phone: Start: 05-13-2022 End: 05-13-2022 ambulatory Arely Dasilva Other [email or web address] Other Start: 05-13-2022 Telephone encounter Arely Dasilva [facility] [address] Start: 05-11-2022 End: 05-11-2022 Departed Referred MD Benny Vick Work Phone: [facility] [place] Start: 05-11-2022 End: 05-11-2022 ambulatory Arely Dasilva Other [email or web address] Other Start: 05-11-2022 Office outpatient vi sit 15 minutes Arely Dasilva [facility] [place] Start: 04-18-2022 Office outpatient vi sit 15 minutes Benny Vick Work Phone: [facility] 250 DO Work Phone: Start: 04-18-2022 ambulatory Avelino Berry Facility:1 [id number] Start: 04-14-2022 End: 04-14-2022 Emergency department patient visit MD Benny Vick Work Phone: [facility] Start: 03-28-2022 End: 03-29-[address] CAMRYN CORBIN Facility:H1 Start: 01-07-2022 End: 01-07-2022 ambulatory Alexia Dejesus Other [email or web address] Other Start: 01-07-2022 Office outpatient vi sit 15 minutes Alexia Dejesus [facility] [place] Start: 09-22-2021 (URG) Urgent Care Visit Nitza bell [facility] [place] Start: 09-22-2021 End: 09-22-2021 ambulatory Nitza Cerrato Other [email or web address] Other Start: 07-19-2021 Office consultation new/estab patient 60 min Benny Vick Work Phone: [facility] 250 DO Work Phone: Start: 07-19-2021 Office outpatient ne w 45 minutes Benny Vick Work Phone: [facility] 250 DO Work Phone: Procedures Date Procedure Procedure Detail Performing Clinician Start: 04-14-2025 Dilation of urethra Haile DAVIS Start: 01-27-2025 Screening mammography of bilateral breasts Jackie Adan [employer] Work Phone: Start: 10-15-2024 Urnls dip stick/tablet rgnt non-auto w/o micrscp Jackie Adan [employer] Work Phone: Start: 10-15-2024 Hemoglobin glycosylated a1c Jackie sotomayor [employer] Work Phone: Start: 08-26-2024 RECURRENT VAGINITIS (HTRX) Kim REYNOSO Work Phone: Start: 06-17-2024 Ecg routine ecg w/least 12 lds w/i&r Rell Goodrich MD Work Phone: Start: 2024 Hemoglobin glycosylated a1c Jackie sotomayor [employer] Work Phone: Start: 06-03-2024 Computed tomography of abdomen and pelvis with contrast II Wilian Moreno Work Phone: Start: 05-12-2024 Dilation of urethra Haile DAVIS Start: 05-10-2024 Plain chest X-ray II Wilian Moreno Work Phone: Start: 11-20-2023 Plain chest X-ray II Wilian Moreno Work Phone: Start: 11-20-2023 Screening mammography of bilateral breasts II Wilian Moreno Work Phone: Start: 08-23-2023 Computed tomography of abdomen and pelvis with contrast II Wilian Moreno Work Phone: Start: 02-12-2023 Esophagogastroduodenoscopy [employer] Frank Dejesus Work Phone: Start: 02-01-2023 [facility] Angio [employer] Alexia Dejesus Work Phone: Start: 12-17-2022 Lactoferrin measurement Start: 12-12-2022 Plain chest X-ray Start: 11-14-2022 Plain chest X-ray Start: 10-30-2022 Cystourethroscopy with dilation of urethral stricture Haile DAVIS Start: 10-29-2022 Pelvic echography Start: 10-26-2022 Urine culture Start: 10-08-2022 Urine culture Start: 09-20-2022 Computed tomography of abdomen and pelvis with contrast Start: 09-20-2022 Urine culture Start: 07-16-2022 Urine culture Start: 07-14-2022 SARS Antigen (LFIA) MD Benny Vick Work Phone: Start: 07-14-2022 CT of head without contrast MD Benny Bergman rer Work Phone: Start: 07-14-2022 CT of abdomen [...] Cystourethroscopy with dilation of urethral stricture LAWRENCE JESS Start: 10-14-2018 Total colonoscopy Benny Uche Izabellalentanisha Work Phone: Start: 07-01-2018 Cystourethroscopy with dilation of urethral stricture 1 LAWRENCE JESS Comment on above: 10/26/2014, 06/12/2017 Start: 07-26-2010 Dilation of urethra LAWRENCE JESS Appendectomy Benny Parekherer Work Phone: Appendectomy LAWRENCE JESS Cholecystectomy Benny Uche Madi er Work Phone: Cholecystectomy LAWRENCE PER RY Colonoscopy LAWRENCE JESS Elbow joint operations Benny A Naderer Work Phone: elbow surgery LAWRENCE JESS Hysterectomy Benny A Naderer Work Phone: Hysterectomy LAWRENCE JESS neck surgery LAWRENCE JESS Procedure on neck Benny serrato Work Phone: Urine culture MD Benny garay Work Phone: Urine culture Plan of Treatment Date Care Activity Detail Author Start: 03-30-2026 Urine screening for protein Diabetes: Urine Protein Screening [facility] Start: 03-18-2026 Medicare Annual Well ness (AWV) Medicare Annual Wellness (AWV) [facility] Start: 07-03-2025 Urine screening for protein Diabetes: Urine Protein Screening [facility] Start: 06-30-2025 Hemoglobin A1c measurement Diabetes: Hemoglobin A1C [facility] Start: 04-07-2025 End: 04-07-2025 Patient encounter procedure 04/07/2025 2:00 PM EDT Office Visit [facility] [address] [place] [id number] Miller Lee MD [address] [place] [address] Arrived [facility] Comment on above: Arrived Start: 03-18-2025 End: 03-18-2026 25-hydroxyvitamin D3 [Mass/volume] in Serum or Plasma Vitamin D 25 hydroxy Lab Routine Vitamin D deficiency Expected: 03/18/2025 (Approximate), Expires: 03/18/2026 [facility] Comment on above: Expected: 03/18/2025 (Approximate), Expires: 03/18/2026 Start: 03-18-2025 End: 03-18-2026 CBC panel - Blood by Automated count CBC Lab Routine Type 2 diabetes mellitus with hypoglycemia without coma, without long-term current use of insulin ([facility]) Primary hypertension ([facility]/HCC) Expected: 03/18/2025 (Approximate), Expires: 03/18/2026 [facility] Work Phone: Comment on above: Expected: 03/18/2025 (Approximate), Expires: 03/18/2026 Start: 03-18-2025 End: 03-18-2026 Comprehensive metabolic 2000 panel - Serum or Plasma Comprehensive metabolic panel Lab Routine Type 2 diabetes mellitus with hypoglycemia without coma, without long-term current use of insulin ([facility]/HCC) Primary hypertension ([facility]) Expected: 03/18/2025 (Approximate), Expires: 03/18/2026 [facility] Comment on above: Expected: 03/18/2025 (Approximate), Expires: 03/18/2026 Start: 03-18-2025 End: 03-18-2026 Hemoglobin A1c/Hemoglobin.total in Blood Hemoglobin A1c Lab Routine Type 2 diabetes mellitus with hypoglycemia without coma, without long-term current use of insulin ([facility]) Expected: 03/18/2025 (Approximate), Expires: 03/18/2026 [facility] Comment on above: Expected: 03/18/2025 (Approximate), Expires: 03/18/2026 Start: 03-18-2025 End: 03-18-2026 Lipid 1996 panel - Serum or Plasma Lipid panel Lab Routine Mixed hyperlipidemia ([facility]) Expected: 03/18/2025 (Approximate), Expires: 03/18/2026 [facility] Comment on above: Expected: 03/18/2025 (Approximate), Expires: 03/18/2026 Start: 03-18-2025 End: 03-18-2026 Microalbumin/Creatinine panel in random Urine Microalbumin / creatinine, urine ratio Lab Routine Type 2 diabetes mellitus with hypoglycemia without coma, without long-term current use of insulin ([facility]) Expected: 03/18/2025 (Approximate), Expires: 03/18/2026 [facility] Comment on above: Expected: 03/18/2025 (Approximate), Expires: 03/18/2026 Start: 03-18-2025 End: 03-18-2025 Patient encounter procedure 03/18/2025 2:00 PM EDT Office Visit [facility] [address] [facility] [address] [place] [address] Jackie Adan NP [address] [facility] [address] [place] [address] [facility] Start: 03-18-2025 End: 03-18-2026 TSH W/REFLEX TO FT4 TSH W/REFLEX TO FT4 Lab Routine Screening for thyroid disorder Underweight Expected: 03/18/2025 (Approximate), Expires: 03/18/2026 [facility] Comment on above: Expected: 03/18/2025 (Approximate), Expires: 03/18/2026 Start: 02-25-2025 End: 02-25-2025 Patient encounter procedure 02/25/2025 3:00 PM EDT Office Visit [facility] [address] [place] [address] Jackie Adan NP [address] [place] [address] Arrived [facility] Comment on above: Arrived Start: 02-19-2025 Medicare Annual Well ness (AWV) Medicare Annual Wellness (AWV) [facility] Start: 01-13-2025 Hemoglobin A1c measurement Diabetes: Hemoglobin A1C [facility] Start: 10-15-2024 End: 10-15-2024 Patient encounter procedure [facility] Comment on above: Arrived Start: 09-30-2024 Urine screening for protein Diabetes: Urine Protein Screening [facility] Start: 09-24-2024 End: 09-24-2024 Patient encounter procedure 09/24/2024 2:20 PM EST Office Visit [facility] [address] [place] [address] Kim Palencia PA [address] [place], [place] [id number] [facility] Start: 09-16-2024 End: 09-16-2024 Patient encounter procedure 09/16/2024 10:00 AM EST Office Visit [facility] [address] [place] [address] Jackie Adan NP [address] [place] [address] Arrived [facility] Comment on above: Arrived Start: 09-15-2024 Hemoglobin A1c measurement Diabetes: Hemoglobin A1C [facility] Start: 09-09-2024 End: 09-09-2024 Patient encounter procedure [facility] Comment on above: Arrived Start: 07-03-2024 End: 06-25-2025 Basic metabolic 1998 panel - Serum or Plasma Basic metabolic panel Lab Routine Primary hypertension (CMS/HCC) Hyponatremia Expected: 07/03/2024 (Approximate), Expires: 06/25/2025 [facility] Work Phone: Comment on above: Expected: 07/03/2024 (Approximate), Expires: 06/25/2025 Start: 06-25-2024 End: 06-25-2024 Patient encounter procedure 06/25/2024 2:30 PM EDT Office Visit [facility] [address] [facility] [address] [place] [address] Jackie Adan [employer] [address] [place] [address] Arrived [facility] Comment on above: Arrived Start: 06-24-2024 End: 06-24-2024 Patient encounter procedure 06/24/2024 2:40 PM EDT Office Visit [facility] [address] [place] [address] Evangelist Ashley DO [address] [place], [place] [id number] [facility] Start: 06-18-2024 End: 06-18-2024 Professional / ancillary services management 06/18/2024 1:00 PM EDT Ancillary Procedure [facility] [address] [facility] [address] [place] [address] [facility] Start: 06-17-2024 End: 06-17-2025 Holter monitor study Holter [employer] Security Consultant Cardiac Services Routine Dizziness Expected: 06/17/2024 (Approximate), Expires: 06/17/2025 [facility] Service Area Work Phone: Comment on above: Expected: 06/17/2024 (Approximate), Expires: 06/17/2025 Start: 2024 End: 2025 Comprehensive metabolic 2000 panel - Serum or Plasma Comprehensive metabolic panel Lab Routine Sinus bradycardia, persistent Episodic lightheadedness Expected: 2024 (Approximate), Expires: 2025 [facility] Work Phone: Comment on above: Expected: 2024 (Approximate), Expires: 2025 Start: 2024 End: 2024 Patient encounter procedure 2024 11:30 AM EDT Office Visit [facility] [address] [place] [id number] Jackie Adan NP [address] [place] [address] Arrived [facility] Comment on above: Arrived Start: 06-14-2024 COVID-19 Vaccine () COVID-19 Vaccine () [facility] Start: 06-14-2024 Influenza vaccination Influenza Vacc ine (#1) [facility] Start: 05-22-2024 Hemoglobin A1c measurement Diabetes: Hemoglobin A1C [facility] Start: 05-10-2024 Plain chest X-ray XR chest 2V* [facility] Start: 05-10-2024 XR Chest [address] [facility] Start: 02-28-2024 Plain chest X-ray XR chest 2V* [facility] Start: 11-20-2023 [facility] Start: 11-20-2023 Plain chest X-ray XR chest 1V portab le [facility] Start: 11-20-2023 [facility] Start: 08-23-2023 Computed tomography of abdomen and pelvis with contrast CT abdomen pelvis w con [facility] Start: 08-23-2023 CT Abdomen and Pelvi s W contrast IV [facility] Start: 08-07-2023 DTaP/Tdap/Td Vaccine s (2 - Td or Tdap) DTaP/Tdap/Td Vaccines (2 - Td or Tdap) [facility] Start: 03-04-2023 FUV, Provider: Avelino Brooks, Status: Pen, Time: 2:00 PM FUV, Provider: Avelino Brooks, Status: Pen, Time: 2:00 PM [facility] 250 DO Work Phone: Start: 02-12-2023 [facility] Start: 02-01-2023 SURGNON, Provider: Rory Rosas, Status: Pen, Time: 9:00 AM SURGNON, Provider: Rory Rosas, Status: Pen, Time: 9:00 AM [facility] 250 DO Work Phone: Start: 02-01-2023 End: 02-01-2023 [facility] Start: 10-26-2022 Bacteria identified in Urine by Culture Urine Culture [facility] Start: 10-08-2022 Bacteria identified in Urine by Culture Urine Culture [facility] Start: 09-20-2022 Computed tomography of abdomen and pelvis with contrast CT abdomen pelvis w con [facility] Start: 09-20-2022 CT Abdomen and Pelvi s W contrast IV [facility] Start: 08-24-2022 FUV, Provider: Rory Rosas, Status: Pen, Time: 3:10 PM FUV, Provider: Rory Rosas, Status: Pen, Time: 3:10 PM [facility] Work Phone: Start: 07-14-2022 End: 07-14-2022 [facility] Start: 07-14-2022 Magnesium measurement [facility] Start: 07-14-2022 Hospital admission [facility] Start: 07-14-2022 Physical therapy procedure [facility] Start: 07-14-2022 Referral to occupati onal therapist [facility] Start: 07-14-2022 CT Abdomen and Pelvi s WO contrast [facility] Start: 07-14-2022 CT of abdomen and pe lvis without contrast CT abdomen pelvis wo con [facility] Start: 06-29-2022 STRESS NUC, Provider : SILVER HHVI NUCLEAR ,[id number], Status: Pen, Time: 12:00 PM STRESS NUC, Provider: SILVER HHVI NUCLEAR ,[id number], Status: Pen, Time: 12:00 PM [facility] 250 DO Work Phone: Start: 06-20-2022 Diagnostic radiograp hy of abdomen XR abdomen 1V [facility] Start: 06-20-2022 Plain chest X-ray XR chest 1V portab le [facility] Start: 06-20-2022 XR Abdomen Single view [facility] Work Phone: Start: 06-20-2022 XR Chest Single view [facility] Work Phone: Start: 06-11-2022 End: 06-12-2022 Emergency department patient visit Departed Emergency [facility] Start: 05-29-2022 FUV, Provider: Avelino Brooks, Status: Pen, Time: 3:00 PM FUV, Provider: Avelino Brooks, Status: Pen, Time: 3:00 PM [facility] 250 DO Work Phone: Start: 03-30-2022 FUV, Provider: Rory Rosas, Status: Pen, Time: 1:20 [facility] Work Phone: Start: 04-05-2021 Urine screening for protein Diabetes: Urine Protein Screening [facility] Start: 1950 Glaucoma screening Diabetes: R etinopathy Screening [facility] Start: 1941 Lipid panel Lipid Panel [facility] Start: 1941 Medicare Annual Well ness Visit Medicare Annual Wellness Visit (AWV) [facility] Start: 1940 Screening for osteoporosis Bone Density Scan [facility] Alanine aminotransfe rase [Enzymatic activity/volume] in Serum or Plasma by No addition of P-5'-P [facility] Work Phone: Albumin [Mass/volume ] in Serum or Plasma [facility] Work Phone: Albumin/Globulin ratio [facility] Work Phone: Alkaline phosphatase [Enzymatic activity/volume] in Serum or Plasma [facility] Work Phone: Anion gap measurement [facility] Work Phone: Aspartate aminotransferase [Enzymatic activity/volume] in Serum or Plasma [facility] Work Phone: Bacteria identified in Urine by Culture [facility] Bacterial cytolethal distending toxin cdt gene [Presence] in Unspecified specimen by BENTON with probe detection [facility] Basophil count [facility] Work Phone: Basophil percent differential count [facility] Work Phone: Bilirubin.total [Mass/volume] in Serum or Plasma [facility] Work Phone: Calcium [Mass/volume ] in Serum or Plasma [facility] Work Phone: Calprotectin [Mass/m ass] in Stool [facility] Campylobacter coli+jejuni+upsaliensis DNA [Presence] in Stool by BENTON with non-probe detection [facility] Carbon dioxide, tota l [Moles/volume] in Serum or Plasma [facility] Work Phone: Chloride [Moles/volu me] in Serum or Plasma [facility] Work Phone: Creatinine and Glome rular filtration rate.predicted panel - Serum, Plasma or Blood [facility] Work Phone: Elastase.pancreatic [Mass/mass] in Stool [facility] Eosinophil percent differential count [facility] Work Phone: Eosinophils [#/volum e] in Blood [facility] Work Phone: Erythrocyte mean corpuscular volume determination [facility] Work Phone: Erythrocytes [#/volu me] in Blood [facility] Work Phone: Escherichia coli enteropathogenic eae gene [Presence] in Stool by BENTON with non-probe [facility] Escherichia coli enterotoxigenic ltA+st1a+st1b genes [Presence] in Stool by BENTON with [facility] Escherichia coli O15 7 DNA [Presence] in Stool by BENTON with non-probe detection [facility] Escherichia coli Stx 1 and Stx2 toxin stx1+stx2 genes [Presence] in Stool by BENTON with non-probe detection [facility] Gliadin peptide+tiss ue transglutaminase IgA+IgG Ab [Presence] in Serum by Immunoassay [facility] Globulin [Mass/volum e] in Serum [facility] Work Phone: Glucose [Mass/volume ] in Serum or Plasma [facility] Work Phone: Hematocrit [Volume Fraction] of Blood [facility] Work Phone: Hemoglobin [Mass/vol ume] in Blood [facility] Work Phone: Hemoglobin distribut ion, width determination [facility] Work Phone: Infectious agent gen otype identification [facility] Interferon gamma assay [facility] Leukocytes [#/volume ] in Blood [facility] Work Phone: Lymphocyte count [facility] Work Phone: Lymphocyte percent differential count [facility] Work Phone: Magnesium measurement [facility] Work Phone: Mean corpuscular hemoglobin concentration determination [facility] Work Phone: Mean corpuscular hemoglobin determination [facility] Work Phone: Measurement of renal function [facility] Work Phone: Monocyte count [facility] Work Phone: Monocyte percent differential count [facility] Work Phone: Mycobacterium tuberculosis stimulated gamma interferon [Interpretation] in Blood Qualitative [facility] Mycobacterium tuberculosis stimulated gamma interferon release by CD4+ and CD8+ T-cells [Units/volume] corrected for background in Blood [facility] Mycobacterium tuberculosis tuberculin stimulated gamma interferon [Presence] in Blood [facility] Neutrophil count [facility] Work Phone: Neutrophil percent differential count [facility] Work Phone: Osmolality of Unspec ified specimen [facility] Work Phone: Patient Education [facility] Work Phone: Patient referral [facility] Work Phone: Platelet mean volume determination [facility] Work Phone: Platelets [#/volume] in Blood [facility] Work Phone: Plesiomonas shigello ides DNA [Presence] in Stool by BENTON with non-probe detection [facility] Potassium [Moles/vol ume] in Serum or Plasma [facility] Work Phone: Protein [Mass/volume ] in Serum or Plasma [facility] Work Phone: Salmonella enterica+bongori DNA [Presence] in Stool by BENTON with non-probe detection [facility] Shigella species+EIE C invasion plasmid antigen H ipaH gene [Presence] in Stool by BENTON [facility] Sodium [Moles/volume ] in Serum or Plasma [facility] Work Phone: Sodium [Moles/volume ] in Urine [facility] Work Phone: Thyrotropin [Units/volume] in Serum or Plasma [facility] Work Phone: Thyroxine (T4) free [Mass/volume] in Serum or Plasma [facility] Work Phone: Urea nitrogen [Mass/volume] in Serum or Plasma [facility] Work Phone: Vibrio cholerae DNA [Presence] in Stool by BENTON with non-probe detection [facility] Vibrio cholerae+parahaemolyticus +vulnificus DNA [Presence] in Stool by BENTON with non-probe detection [facility] Immunizations Immunization Date Immunization Notes Care Provider Sidney casas 07-17-2024 influenza virus vacc ine, unspecified formulation Haile DAVIS [facility] 11-05-2023 zoster vaccine recombinant Haile DAVIS [facility] 09-20-2023 ABRYSVO - Respirator y syncytial virus (RSV), vaccine, bivalent, protein subunit RSV prefusion F, diluent reconstituted, 0.5 mL, PF Jackie Adan NP Work Phone: [facility] 09-20-2023 RSV vaccine, preF A- preF B, recombinant Haile DAVIS [facility] 08-26-2023 influenza virus vacc ine, unspecified formulation Haile DAVIS [facility] 08-26-2023 Influenza, High-dose Seasonal, Quadrivalent, Preservative Free Jackie Adan NP Work Phone: [facility] Work Phone: 08-26-2023 pneumococcal 20-ramiro nt conjugate vaccine [employer]ile [employer] [facility] 07-15-2023 SARS-COV-2 (COVID-19 ) vaccine, mRNA, spike protein, LNP, PF, 50 mcg/0.5 mL Jackie Adan NP Work Phone: [facility] 07-03-2023 zoster vaccine recombinant Haile DAVIS [facility] 07-10-2022 Fluzone High-Dose Quadrivalent 0.7 ML Intramuscular Suspension Prefilled Syringe Alexia Dejesus Work Phone: [facility] 250 DO Work Phone: 07-10-2022 influenza virus vacc ine, unspecified formulation Haile DAVIS [facility] 07-10-2022 Moderna SARS-CoV-2 50mcg/0.5mL Booster Jackie Adan NP Work Phone: [facility] 07-10-2022 SARS-CoV-2 (COVID-19 ) [id number] Haile DAVIS [facility] 01-15-2022 Comirnaty 30 MCG/0.3 ML Intramuscular Suspension Benny A Naderer Work Phone: [facility] 250 DO Work Phone: 01-15-2022 COVID-19 mRNA, Comir do (Pfizer) [employer] Alexia Dejesus Work Phone: [facility] [facility] 01-15[facility]2022 SARS-CoV-2 mRNA (bxnogcbgxuv-frrw-miqerk e) vaccine Haile DAVIS [facility] 08-05-2021 Fluzone High-Dose Quadrivalent 0.7 ML Intramuscular Suspension Prefilled Syringe Benny A Naderer Work Phone: [facility] 250 DO Work Phone: 08-05-2021 influenza virus vacc ine, unspecified formulation Haile DAVIS [facility] Comment on above: Result Comment: 2022: 80 07-10-2021 Pfizer-BioNTech COVI D-19 Vacc 30 MCG/0.3ML Intramuscular Suspension Benny A Naderer Work Phone: [facility] Comment on above: Result Comment: 2022: 80 06-14-2021 SARS-CoV-2 (COVID-19 ) Ad26 vaccine, recombinant LAWRENCE MERCADO [facility] 12-02-2020 Pfizer-BioNTech COVI D-19 Vacc 30 MCG/0.3ML Intramuscular Suspension Benny A Naderer Work Phone: [facility] Comment on above: Result Comment: 2022: [id number] 11-14-2020 SARS-CoV-2 (COVID-19 ) Ad26 vaccine, recombinant LAWRENCE MERCADO [facility] 11-11-2020 Pfizer-BioNTech COVI D-19 Vacc 30 MCG/0.3ML Intramuscular Suspension Benny A Naderer Work Phone: [facility] Comment on above: Result Comment: 2022: [id number] 10-14-2020 SARS-CoV-2 (COVID-19 ) Ad26 vaccine, recombinant LAWRENCE MERCADO [facility] 07-14-2020 influenza virus vacc ine, unspecified formulation [employer] [facility] 07-14-2020 influenza, seasonal, injectable Benny A Naderer Work Phone: [facility] [employer] DO Work Phone: 07-21-2019 influenza virus vacc ine, unspecified formulation [employer] [facility] 07-21-2019 influenza, high dose seasonal, preservative-free Benny A Naderer Work Phone: [facility] 250 DO Work Phone: 06-26-2018 influenza virus vacc ine, unspecified formulation [employer] [facility] 06-26-2018 influenza, high dose seasonal, preservative-free Benny A Naderer Work Phone: [facility] 250 DO Work Phone: 09-16-2017 influenza virus vacc ine, unspecified formulation Haile DAVIS [facility] 09-16-2017 influenza, high dose seasonal, preservative-free Benny A Naderer Work Phone: [place] [address] DO Work Phone: 11-26-2016 influenza virus vacc ine, unspecified formulation Haile DAVIS [facility] 11-26-2016 influenza, seasonal, injectable, preservative free Benny A Naderer Work Phone: [place] [address] DO Work Phone: 03-01-2015 pneumococcal conjuga te vaccine, 13 valent Benny A Naderer Work Phone: [facility] 08-07-2013 tetanus toxoid, redu fred diphtheria toxoid, and acellular pertussis vaccine, adsorbed Benny A Naderer Work Phone: [facility] 11-21-2009 novel influenza-H1N1 -09, preservative-free, injectable Benny A Naderer Work Phone: [place] [address] DO Work Phone: 07-15-2006 pneumococcal polysaccharide vaccine, 23 valent Benny A Naderer Work Phone: [facility] Payers Date Payer Category Payer Unknown [id number] 2024 Self-pay [id number] 2021 Medicare [id number] 2021 Medicare (Managed Care) [employer] [place] [employer] [id number] 1959 Medicare [id number] 2.16.840.1.032391.19 1941 Unknown [id number] 2.16.840.1.138229.3.579. 2.1068 1941 Unknown [id number] 2.16.840.1.110718.3.579. 2.356 1941 Unknown [id number] 2.16.840.1.246774.3.579. 2.356 1941 Unknown [id number] 2.16.840.1.941671.3.579. 2.356 1941 Unknown [id number] 2.16.840.1.400045.3.579. 2.356 1941 Unknown [id number] 2.16.840.1.903608.3.579. 2.593 1941 Unknown [id number] 2.16.840.1.157473.3.579. 2.593 1941 Unknown [id number] 2.16.840.1.892363.3.579. 2.593 1941 Unknown [id number] 2.16.840.1.872789.3.579. 2.593 1941 Unknown [id number] 2.16.840.1.325713.3.579. 2.593 1941 Unknown [id number] 2.16.840.1.273654.3.579. 2.593 1941 Unknown [id number] 2.16.840.1.085685.3.579. 2.593 1941 Unknown [id number] 2.16.840.1.118522.3.579. 2.593 1941 Unknown [id number] 2.16.840.1.785118.3.579. 2.593 1941 Unknown [id number] 2.16.840.1.514893.3.579. 2.593 1941 Unknown [id number] 2.16.840.1.801578.3.579. 2.593 1941 Unknown [id number] 2.16.840.1.453132.3.579. 2.593 1941 Unknown [id number] 2.16.840.1.562582.3.579. 2.593 1941 Unknown [id number] 2.16.840.1.467926.3.579. 2.727 1941 Unknown [id number] 2.16.840.1.214787.3.579. 2.727 1941 Unknown [id number] 2.16.840.1.772942.3.579. 2.727 1941 Unknown [id number] 2.16.840.1.102189.3.579. 2.727 1941 Unknown [id number] 2.16.840.1.574439.3.579. 2.727 1941 Unknown [id number] 2.16.840.1.029835.3.579. 2.1286 1941 Unknown [id number] 2.16.840.1.165020.3.579. 2.1286 1941 Unknown [id number] 2.16.840.1.485030.3.579. 2.4 1941 Unknown [id number] 2.16.840.1.443261.3.579. 2.1243 1941 Unknown [id number] 2.16.840.1.875504.3.579. 2.1258 1941 Unknown [id number] 2.16.840.1.618733.3.579. 2.1258 1941 Unknown [id number] 2.16.840.1.306431.3.579. 2.1258 1941 Unknown [id number] 2.16.840.1.995219.3.579. 2.1258 1941 Unknown [id number] 2.16.840.1.005619.3.579. 2.1258 1941 Unknown [id number] 2.16.840.1.752394.3.579. 2.1258 1941 Unknown [id number] 2.16.840.1.246643.3.579. 2.1258 1941 Unknown [id number] 2.16.840.1.286364.3.579. 2.1258 1941 Unknown [id number] 2.16.840.1.659962.3.579. 2.1258 1941 Unknown [id number] 2.16.840.1.405045.3.579. 2.1258 1941 Unknown [id number] 2.16.840.1.282145.3.579. 2.1258 1941 Unknown [id number] 2.16.840.1.756805.3.579. 2.1258 1941 Unknown [id number] 2.16.840.1.195347.3.579. 2.727 1941 Unknown [id number] 2.16.840.1.040607.3.579. 2.727 Medicare [id number] Medicare Medicare Outpatient [id number] Unknown ANTHEM MEDICARE ADV Unknown HCAP/HFA/FAP Active [id number] Unknown [id number] 2.16.840.1.749764.3.579. 2.531 Unknown [id number] 2.16.840.1.287102.3.579. 2.531 Unknown [id number] 2.16.840.1.504676.3.579. 2.531 Unknown [id number] 2.16.840.1.053430.3.579. 2.531 Unknown [id number] 2.16.840.1.329051.3.579. 2.531 Unknown [id number] 2.16.840.1.313882.3.579. 2.531 Social History Date Type Detail Facility Start: 05-08-2024 End: 03-18-2025 No illicit drug use No illicit drug use [facility] Work Phone: Comment on above: Decaf coffee/decaf t ea; Start: 05-08-2024 End: 03-18-2025 Sex Assigned At [email or web address] Other Start: 06-11-2022 End: 04-14-2025 Tobacco smoking status NHIS Never smoked tobacco (finding) [facility] Start: 1940 Sex Assigned At Female F [facility] Tobacco smoking status Never [facility] Start: 04-11-2023 End: 06-17-2024 Tobacco use and exposure Smokeless tobacco non-user [facility] Start: 07-10-2023 End: 04-07-2025 Alcoholic beverage intake Lifetime non-drinker (finding) [facility] Within the last year , have you been afraid of your partner or ex-partner? No [facility] Are you now , , , , never or living with a partner? [facility] How often to you hav e a drink containing alcohol? Never [facility] Do you feel stress - tense, restless, nervous, or anxious, or unable to sleep at night because your mind is troubled all the time - these days [OSQ] To some extent [facility] (I/We) worried wheth er (my/our) food would run out before (I/we) got money to buy more. Never true [facility] Start: 1940 Sex assigned at Not on file [facility] Start: 01-25-2010 End: 09-01-2024 Sex Female (finding) [facility] Start: 06-07-2024 End: 06-17-2024 Exposure to SARS-CoV-2 (event) Not sure [facility] Sexual Orientation [facility] Goals Date Patient Goal Desired Activity /State Functional Status Date Assessment Result Facility 03-18-2025 Patient Health Quest ionnaire 2 item (PHQ-2) [Reported] [facility] 03-18-2025 PHQ-9 quick depressi on assessment panel [Reported.PHQ] [facility] 02-25-2025 Patient Health Quest ionnaire 2 item (PHQ-2) [Reported] [facility] 10-30-2022 Functional Status N/A [facility] 07-26-2022 Functional Status N/A [facility] 07-14-2022 Functional status Patient at Baseline [facility] Work Phone: 07-14-2022 Functional status Patient at Baseline [facility] Work Phone: Mental Status Date Assessment Result Facility 07-14-2022 Cognitive function Cognitive Sta tus Patient at Baseline [facility] Work Phone: 07-14-2022 Cognitive function Cognitive Sta tus Patient Not at Baseline [facility] Work Phone: Clinical Notes 07-19-2020 to 04-14-2025 Miller Lee MD - 04/07/2025 2:00 PM Kenneth Adan NP - 03/18/2025 2:00 PM Kenneth Adan NP - 02/25/2025 3:00 PM Kenneth Adan NP - 11/03/2024 12:03 PM ESTPatient Instructions Note Date & Type Note Facility 04-14-2025 Hospital Discharge instructions Patient Education 04/14/2025 15:05:25 Urethral Stricture Urethral Stricture Urethral stricture is when the tube that drains pee (urine) from the bladder out of the body (urethra) becomes too narrow. The urethra can become narrow because of scar tissue, infection, surgery, or an injury. This can make it difficult to pee (urinate). In females, the urethra opens above the vaginal opening. In males, the urethra opens at the tip of the penis, and the urethra is much longer than it is in females. Because of the length of the male urethra, urethral stricture is much more common in males. What are the causes? In males and females, common causes of urethral stricture include: Urinary tract infection (UTI). Sexually transmitted infection (STI). Using a soft tube in the urethra to drain pee from the bladder (urinary catheter). Urinary tract surgery. In males, common causes of urethral stricture include: A severe injury to the pelvis. Prostate surgery. Injury to the penis. In many cases, the cause of urethral stricture is not known. What increases the risk? You are more likely to develop this condition if you: Are male. Males who have had prostate surgery are at risk of developing this condition. Use a urinary catheter. Have had urinary tract surgery. What are the signs or symptoms? The main symptom of this condition is trouble peeing. This may cause decreased pee flow, dribbling, or spraying of pee. Other symptom of this condition may include: Frequent UTIs. Blood in the pee. Pain when peeing. Swelling of the penis in males. Not being able to pee. How is this diagnosed? This condition may be diagnosed based on: Your medical history and a physical exam. Tests of your pee to check for infection or bleeding. X-rays. Ultrasound. Retrograde urethrogram. With this test, a dye is injected into the urethra and then an X-ray is taken. Urethroscopy. This is when a thin tube with a light and camera on the end (urethroscope) is used to look at the urethra. A CT scan or MRI. How is this treated? This condition is treated with surgery or other procedures. The type of surgery that you have [...] is cut open with a surgical blade or laser inserted through the urethroscope. Urethroplasty. In this procedure, an incision is made in the urethra and the narrow part is removed. Then, the urethra is reconstructed. Follow these instructions at home: Take jiai-sez-xolytsf and prescription medicines only as told by your health care provider. If you were prescribed antibiotics, take them as told by your provider. Do not stop using the antibiotic even if you start to feel better. Drink enough fluid to keep your pee pale yellow. Keep all follow-up visits. Your provider will check your healing and adjust your treatment plan as needed. Contact a health care provider if: You have frequent peeing or you are only peeing small amounts often. You feel the need to pee urgently. You have pain or burning when you pee. Your pee smells bad or unusual. Your pee is bloody or cloudy. You have pain in your lower abdomen or back. Your genital area is swollen, bruised, or discolored. This includes: ?The penis, scrotum, and inner thighs for males. ?The outer genital organs (vulva) and inner thighs for females. You have a fever. You develop swelling in your legs. Get help right away if: You cannot pee. You have trouble breathing. These symptoms may be an emergency. Get help right away. Call 911. Do not wait to see if the symptoms will go away. Do not drive yourself to the hospital. This information is not intended to replace advice given to you by your health care provider. Make sure you discuss any questions you have with your health care provider. Document Revised: 07/25/2023 Document Reviewed: 07/25/2023 [employer] Patient Education 2023 [employer]. Follow Up Care 02/03/2025 11:15:23 With:RYAN LOBO, Haile Garay, URL Address: [facility] [address], [place] [address] [phone] When: Unknown [facility] Silver 04-14-2025 Note Patient Education Urology Urethral Stricture Urethral stricture is when the tube that drains pee (urine) from the bladder out of the body (urethra) becomes too narrow. The urethra can become narrow because of scar tissue, infection, surgery, or an injury. This can make it difficult to pee (urinate). In females, the urethra opens above the vaginal opening. In males, the urethra opens at the tip of the penis, and the urethra is much longer than it is in females. Because of the length of the male urethra, urethral stricture is much more common in males. What are the causes? In males and females, common causes of urethral stricture include: ??? Urinary tract infection (UTI). ??? Sexually transmitted infection (STI). ??? Using a soft tube in the urethra to drain pee from the bladder (urinary catheter). ??? Urinary tract surgery. In males, common causes of urethral stricture include: ??? A severe injury to the pelvis. ??? Prostate surgery. ??? Injury to the penis. In many cases, the cause of urethral stricture is not known. What increases the risk? You are more likely to develop this condition if you: ??? Are male. Males who have had prostate surgery are at risk of developing this condition. ??? Use a urinary catheter. ??? Have had urinary tract surgery. What are the signs or symptoms? The main symptom of this condition is trouble peeing. This may cause decreased pee flow, dribbling, or spraying of pee. Other symptom of this condition may include: ??? Frequent UTIs. ??? Blood in the pee. ??? Pain when peeing. ??? Swelling of the penis in males. ??? Not being able to pee. How is this diagnosed? This condition may be diagnosed based on: ??? Your medical history and a physical exam. ??? Tests of your pee to check for infection or bleeding. ??? X-rays. ??? Ultrasound. ??? Retrograde urethrogram. With this test, a dye is injected into the urethra and then an X-ray is taken. ??? Urethroscopy. This is when a thin tube with a light and camera on the end (urethroscope) is used to look at the urethra. ??? A CT scan or MRI. How is this treated? This condition is treated with surgery or other procedures. The type of surgery that you have depends on the severity of your condition. You may have: ??? Urethral dilation. In this procedure, the narrow part of the urethra is stretched open (dilated) with dilating instruments or a small balloon. ??? Urethrotomy. In this procedure, a urethroscope is placed into the urethra, and the narrow part of the urethra is cut open with a surgical blade or laser inserted through the urethroscope. ??? Urethroplasty. In this procedure, an incision is made in the urethra and the narrow part is removed. Then, the urethra is reconstructed. Follow these instructions at home: ??? Take ylrm-ykl-ftlgtgz and prescription medicines only as told by your health care provider. ??? If you were prescribed antibiotics, take them as told by your provider. Do not stop using the antibiotic even if you start to feel better. ??? Drink enough fluid to keep your pee pale yellow. ??? Keep all follow-up visits. Your provider will check your healing and adjust your treatment plan as needed. Contact a health care provider if: ??? You have frequent peeing or you are only peeing small amounts often. ??? You feel the need to pee urgently. ??? You have pain or burning when you pee. ??? Your pee smells bad or unusual. ??? Your pee is bloody or cloudy. ??? You have pain in your lower abdomen or back. ??? Your genital area is swollen, bruised, or discolored. This includes: ? The penis, scrotum, and inner thighs for males. ? The outer genital organs (vulva) and inner thighs for females. ??? You have a fever. ??? You develop swelling in your legs. Get help right away if: ??? You cannot pee. ??? You have trouble breathing. These symptoms may be an emergency. Get help right away. Call 911. ??? Do not wait to see if the symptoms will go away. ??? Do not drive yourself to the hospital. This information is not intended to replace advice given to you by your health care provider. Make sure you discuss any questions you have with your health care provider. Document Revised: 07/25/2023 Document Reviewed: 07/25/2023 [employer] Patient Education ? 2023 [employer]. [facility] 04-07-2025 History of Present illness Narrative Subjective Patient ID: Maritza Vicente is a 84 y.o. female who presents for Ear Problem Pt reports she was seen in the ED for RT parietal, ear and neck pain. Tx with abx. Pt reports she is 80% better. Pt denies ever having any ear surgery, drainage or bleeding, but does acknowledge she grew a nail especially long in order to dig in her ears. Trimmed the nail last night. Denies hearing loss. Review of Systems All other systems reviewed and are negative. Family History Problem Relation Name Age of Onset No Known Problems Mother Diabetes Father Active Ambulatory Problems Diagnosis Date Noted Generalized anxiety disorder 04/10/2023 Lack of coordination 04/10/2023 Osteopenia 04/10/2023 Other urethral stricture, female 04/10/2023 Type 2 diabetes mellitus with hypoglycemia without coma, without long-term current use of insulin (HCC) 04/10/2023 Cervical spondylosis 03/24/2019 Gastroesophageal reflux disease 03/24/2019 Hyperlipidemia 03/24/2019 Vitamin D deficiency 04/06/2016 Irritable bowel syndrome with diarrhea 04/11/2023 History of colonic polyps 03/24/2019 Cervical disc disorder with radiculopathy 03/24/2019 Adhesive capsulitis of shoulder 03/24/2019 Atrophic vaginitis 03/24/2019 Bilateral cataracts 03/24/2019 Breast lump 03/24/2019 Insomnia 03/24/2019 Lesion of liver 03/24/2019 Low back pain 03/24/2019 Mass of lower limb 03/24/2019 Neuropathy 03/24/2019 Temporomandibular joint disorder 03/24/2019 Hypertension 06/26/2023 Diverticulosis of colon 09/17/2023 Underweight 09/17/2023 Acute diverticulitis 11/11/2023 Acute hyperglycemia 11/11/2023 AMS (altered mental status) 11/11/2023 Constipation 11/11/2023 Dizziness 11/11/2023 Generalized weakness 11/11/2023 Hypokalemia 11/11/2023 Pain pelvic 11/11/2023 Poor appetite 11/11/2023 Sacroiliitis 11/11/2023 Weight loss 11/11/2023 Type 2 diabetes mellitus without complication, without long-term current use of insulin ([facility]) 04/06/2025 Resolved Ambulatory Problems Diagnosis Date Noted Anxiety 03/24/2019 Diverticulitis 03/24/2019 Elevated blood pressure reading 03/24/2019 Hypervitaminosis D 05/30/2023 Left lower quadrant pain 03/24/2019 Musculoskeletal chest pain 03/24/2019 Past Medical History: Diagnosis Date Diabetes mellitus ([facility]) H/O elbow surgery Knee joint cyst Osteoporosis Urethral stricture Past Surgical History: Procedure Laterality Date APPENDECTOMY CERVICAL DISC SURGERY CHOLECYSTECTOMY CT GUIDED TRANSVAGINAL TRANSRECTAL FLUID DRAIN 07/06/2021 CT GUIDED TRANSVAGINAL TRANSRECTAL FLUID DRAIN 07/06/2021 CYST REMOVAL Left knee ELBOW SURGERY HYSTERECTOMY Allergies Allergen Reactions Morphine Other Reaction(s): ELEVATED B/P Other Reaction(s): anaphylaxis Other reaction(s): CHEST PAIN ELEVATED BP Codeine Other Reaction(s): GI Disturbance Diazepam Other Reaction(s): Other (See Comments) Doxycycline Nausea Only Other Reaction(s): Flushing Iodine Molds & Smuts Unknown Nitrofurantoin Other Reaction(s): SEVERE GI ISSUES Other Reaction(s): stomach upset Propoxyphene Other Reaction(s): GI Disturbance Current Outpatient Medications on File Prior to Visit Medication Sig Dispense Refill atorvastatin (Lipitor) 10 MG tablet Take 1 tablet (10 mg) by mouth Daily 100 tablet 3 busPIRone (Buspar) 10 MG tablet Take 1 tablet (10 mg) by mouth in the morning and 1 tablet (10 mg) before bedtime. 180 tablet 3 cholecalciferol (Vitamin D-3) 25 MCG (1000 UT) capsule Take 1,000 Units by mouth Daily clobetasol (Temovate) 0.05 % ointment Continuous Glucose Quiller Hand ([employer] Brett 2 Alvin) device 1 Device 5 (five) times a day 1 each 0 Continuous Glucose Sensor (FreeStyle Brett 2 Sensor) misc CHANGE EVERY 14 DAYS DIRECTED 6 each 3 famotidine (Pepcid) 40 MG tablet Take 1 tablet (40 mg) by mouth in the morning and 1 tablet (40 mg) before bedtime. 180 tablet 3 ferrous sulfate 325 (65 Fe) MG tablet Take 325 mg by mouth in the morning and 325 mg before bedtime. gabapentin (Neurontin) 300 MG capsule Take 1 capsule (300 mg) by mouth at bedtime 30 capsule 3 lisinopril 10 MG tablet Take 1 tablet (10 mg) by mouth Daily 100 tablet 3 magnesium oxide (Mag-Ox) 400 mg tablet Take 300 mg by mouth Daily Multiple Vitamins-Minerals (MULTIVITAMIN ADULTS 50+ PO) Take 1 tablet by mouth in the morning. omeprazole (PriLOSEC) [address] capsule Take 1 capsule (40 mg) by mouth in the morning. Take before meals. Do not crush or chew.. 30 capsule 11 Premarin 0.625 MG/GM cream Probiotic Product (Ztail) capsule Daily SITagliptin (Januvia) 50 MG tablet Take 1 tablet (50 mg) by mouth in the morning. 100 tablet 3 sucralfate (Carafate) 1 g tablet Take 1 tablet (1 g) by mouth in the morning and 1 tablet (1 g) at noon and 1 tablet (1 g) in the evening. Take with meals. 90 tablet 11 tretinoin (Retin-A) 0.025 % cream Apply to face every evening as tolerated/30 day supply 20 g 11 No current facility-administered medications on file prior to visit. Objective Last Recorded Vitals Vitals: 04/07/25 1353 BP: 119/64 Pulse: 66 ENT Physical Exam Constitutional Appearance: patient appears well-developed, well-nourished and well-groomed, Head and Face Appearance: head appears normal and face appears atraumatic; Ear Ear Canals: right ear canal normal; left ear canal normal; Tympanic Membranes: left tympanic membrane normal; Ear comments: Pt has a strip-like peforation extending fro the ant annulus to the post annulus just inferior to the umbo Nose External Nose: nares patent bilaterally; external nose normal; Internal Nose: septum normal; Oral Cavity/Oropharynx Tongue: normal; Oral mucosa: normal; Hard palate: normal; Soft palate: normal; Tonsils: normal; Neck Neck: neck normal; neck palpation normal; Thyroid: thyroid normal; Respiratory Inspection: breathing unlabored; normal breathing rate; Auscultation: breath sounds are clear; Cardiovascular Inspection: extremities are warm and well perfused; no peripheral edema present; Auscultation: regular rate and rhythm; Assessment/Plan Diagnoses and all orders for this visit: Acute otalgia, right Multiple perforations of right tympanic membrane Pt has an unusually shaped RT TM perf without any hx to suggest cause of onset other than her H/O digging in her ears with a long nail. This may not need to be repaired. Audio and F/U documented in this encounter [facility] 03-18-2025 History of Present illness Narrative Images from the original note were not included. Subjective : Chief Complaint: Maritza Vicente is an 84 y.o. female here for an annual wellness visit. I have reviewed and reconciled the history and medication list with the patient today. Current Outpatient Medications Medication Sig Dispense Refill atorvastatin (Lipitor) 10 MG tablet Take 1 tablet (10 mg) by mouth Daily 100 tablet 3 busPIRone (Buspar) 10 MG tablet Take 1 tablet (10 mg) by mouth in the morning and 1 tablet (10 mg) before bedtime. 180 tablet 3 cholecalciferol (Vitamin D-3) 25 MCG (1000 UT) capsule Take 1,000 Units by mouth in the morning. clobetasol (Temovate) 0.05 % ointment Continuous Glucose Quiller Hand (FreeStyle Brett 2 Alvin) device 1 Device 5 (five) times a day 1 each 0 Continuous Glucose Sensor (FreeStyle Brett 2 Sensor) misc CHANGE EVERY 14 DAYS DIRECTED 6 each 3 famotidine (Pepcid) 40 MG tablet Take 1 tablet (40 mg) by mouth in the morning and 1 tablet (40 mg) before bedtime. 180 tablet 3 ferrous sulfate 325 (65 Fe) MG tablet Take 325 mg by mouth in the morning and 325 mg before bedtime. gabapentin (Neurontin) 300 MG capsule Take 1 capsule (300 mg) by mouth at bedtime 30 capsule 3 lisinopril 10 MG tablet Take 1 tablet (10 mg) by mouth Daily 100 tablet 3 magnesium oxide (Mag-Ox) 400 mg tablet Take 300 mg by mouth Daily Multiple Vitamins-Minerals (MULTIVITAMIN ADULTS 50+ PO) Take 1 tablet by mouth in the morning. omeprazole (PriLOSEC) [address] capsule Take 1 capsule (40 mg) by mouth in the morning. Take before meals. Do not crush or chew.. 30 capsule 11 Premarin 0.625 MG/GM cream as directed Probiotic Product (Ztail) capsule Daily. SITagliptin (Januvia) 50 MG tablet Take 1 tablet (50 mg) by mouth in the morning. 100 tablet 3 sucralfate (Carafate) 1 g tablet Take 1 tablet (1 g) by mouth in the morning and 1 tablet (1 g) at noon and 1 tablet (1 g) in the evening. Take with meals. 90 tablet 11 tretinoin (Retin-A) 0.025 % cream Apply to face every evening as tolerated/30 day supply 20 g 11 No current facility-administered medications for this visit. Review of Systems Constitutional: Negative. HENT: Negative. Eyes: Negative. Respiratory: Negative. Cardiovascular: Negative. Gastrointestinal: Negative. Genitourinary: Negative. Musculoskeletal: Negative. Skin: Negative. Neurological: Negative. Psychiatric/Behavioral: Negative. All other systems reviewed and are negative. Endocrine: Negative. List of current healthcare providers: Patient Care Team: Wilian Moreno MD as PCP - General (Internal Medicine) Celia Zamora LPN Medicare Annual Visit Over the past 2 weeks, how often have you been bothered by any of the following problems? Little interest or pleasure in doing things: Not at all Feeling down, depressed, or hopeless: Several days Patient Health Questionnaire-2 Score: 1 Avila Fall Risk History of Falling, Immediate or Within 3 Months: No Health Risk Assessment Form Do you need help eating, bathing, using the toilet, dressing, or getting around your home?: No Can you prepare your own meals?: Yes Can you do your own housework without help?: Yes Can you shop for groceries or clothes without help?: Yes Do you exercise for about 20 minutes 3 or more days a week?: Yes How confident are you that you can control and manage most of your health problems?: Very confident Can you mange your money, credit cards and accounts, pay bills and taxes?: Yes Cognitive Screening Three Word Registration: Banana, Laird, Chair Clock Drawing: Normal Clock - 2 Three Word Recall: All 3 words correct - 3 Total Score (0-5 Points): 5 Pain Assessment Pain Score: 0 - No pain Advance Care Planning Do you have a living will?: Yes Do you have a medical power of traffic law attorney?: Yes Who is your medical power of traffic law attorney?: Granddaughter Objective : BP 110/58 Pulse 61 Resp 16 Ht 5' 2 Wt 112 lb SpO2 98% BMI 20.49 kg/m No results found. Physical Exam Vitals reviewed. Constitutional: Appearance: Normal appearance. HENT: Head: Normocephalic. Nose: Nose normal. Mouth/Throat: Mouth: Mucous membranes are moist. Pharynx: Oropharynx is clear. Eyes: Conjunctiva/sclera: Conjunctivae normal. Cardiovascular: Rate and Rhythm: Normal rate. Rhythm irregular. Pulmonary: Effort: Pulmonary effort is normal. Breath sounds: Normal breath sounds. Abdominal: General: Bowel sounds are normal. Palpations: Abdomen is soft. Musculoskeletal: General: Normal range of motion. Cervical back: Neck supple. Skin: General: Skin is warm and dry. Neurological: General: No focal deficit present. Mental Status: She is alert and oriented to person, place, and time. Psychiatric: Mood and Affect: Mood normal. Behavior: Behavior normal. Thought Content: Thought content normal. Judgment: Judgment normal. Assessment/Plan : The following health maintenance schedule was reviewed with the patient and provided in printed form in the after visit summary: Health Maintenance Topic Date Due Diabetes: Retinopathy Screening Never done Diabetes: Urine Protein Screening 04/05/2021 Diabetes: Hemoglobin A1C 01/13/2025 Medicare Annual Wellness (AWV) 02/19/2025 Influenza Vaccine Completed Pneumococcal Vaccine: 65+ Years Completed Advance Care Planning Does not have in place. Discussed importance. Orders Placed This Encounter Procedures CBC Standing Status: Future Number of Occurrences: 1 Expected Date: 03/18/2025 Expiration Date: 03/18/2026 Print requisition?: No Comprehensive metabolic panel Standing Status: Future Number of Occurrences: 1 Expected Date: 03/18/2025 Expiration Date: 03/18/2026 Print requisition?: No Lipid panel Standing Status: Future Number of Occurrences: 1 Expected Date: 03/18/2025 Expiration Date: 03/18/2026 Print requisition?: No TSH W/REFLEX TO FT4 Standing Status: Future Number of Occurrences: 1 Expected Date: 03/18/2025 Expiration Date: 03/18/2026 Print requisition?: No Hemoglobin A1c Standing Status: Future Number of Occurrences: 1 Expected Date: 03/18/2025 Expiration Date: 03/18/2026 Print requisition?: No Vitamin D 25 hydroxy Standing Status: Future Number of Occurrences: 1 Expected Date: 03/18/2025 Expiration Date: 03/18/2026 Print requisition?: No Microalbumin / creatinine, urine ratio Standing Status: Future Number of Occurrences: 1 Expected Date: 03/18/2025 Expiration Date: 03/18/2026 Print requisition?: No 1. Generalized anxiety disorder (CMS/HCC) Take medication as directed. Verbalizes understanding of the need to be seen in the ER for excessive stress, elevated blood pressure or palpitations. Advised on relaxation methods to decrease anxiety and depression. Pt offers understanding of treatment plan. 2. Osteopenia of multiple sites This is a chronic medical condition that is stable since last assessment. No changes in treatment are suggested at this time. 3. Type 2 diabetes mellitus with hypoglycemia without coma, without long-term current use of insulin (CMS/HCC) Discussed today the importance of proper diabetic control. Discussed possible complications of diabetes, including loss of vision, renal failure, increased risk of heart attacks and strokes, blood vessel and/or nerve damage. Reviewed the recommended changes to reduce your blood sugars and minimize the risk of these complications. Reviewed diabetic goals, including keeping A1C <7.0% and blood pressure < 130/70. The plan for achieving these goals is adherence to medications, maintaining a healthy and balanced diet, and regular activity as discussed during today's visit. Discussed current barriers to achieving these goals. Discussed dietary goals. Discussed decreasing carbohydrates and simple sugar intake. Reviewed portion control with the patient. If the patient still has questions on this, a referral to a Dietitian can be arranged. Reviewed medications that aid in diabetic control. Discussed proper dosing and educated the patient on possible side effects and complications. The patient verbalized understanding of these instructions. - CBC; Future - Comprehensive metabolic panel; Future - Hemoglobin A1c; Future - Microalbumin / creatinine, urine ratio; Future - CBC - Comprehensive metabolic panel - Hemoglobin A1c - Microalbumin / creatinine, urine ratio 4. Cervical spondylosis This is a chronic medical condition that is stable since last assessment. No changes in treatment are suggested at this time. 5. Gastroesophageal reflux disease without esophagitis GERD discussed with the patient. Pt educated regarding avoiding high acid food triggers such as caffeine products, fruits high in acid, spicy foods, and tomato based products. Advsied to avoid all NSAIDS medications, i.e. Motrin, Aleve. Ok to use Tylenol prn. Encouraged pt to avoid laying down immediately after meals. 6. Mixed hyperlipidemia (CMS/HCC) Await lab - Lipid panel; Future - Lipid panel 7. Vitamin D deficiency Await lab - Vitamin D 25 hydroxy; Future - Vitamin D 25 hydroxy 8. Irritable bowel syndrome with diarrhea This is a chronic medical condition that is stable since last assessment. No changes in treatment are suggested at this time. 9. Cervical disc disorder with radiculopathy This is a chronic medical condition that is stable since last assessment. No changes in treatment are suggested at this time. 10. Age-related cataract of both eyes, unspecified age-related cataract type This is a chronic medical condition that is stable since last assessment. No changes in treatment are suggested at this time. 11. Mass of breast, unspecified laterality This is a chronic medical condition that is stable since last assessment. No changes in treatment are suggested at this time. 12. Primary insomnia Discussed sleep hygiene with the patient. Encouraged patient to try to go to bed at the same time every night and wake up at the same time each morning. Also encouraged patient to use the bed for sleep and intimacy only. Avoid stimulating activities before bed, i.e. use of electronic devices, watching TV. Avoid exercise within 4 hours of going to bed. Avoid caffeine within 6 hours of going to bed. Keep bedroom cool and dark. Avoid nicotine and alcohol. 13. Lesion of liver This is a chronic medical condition that is stable since last assessment. No changes in treatment are suggested at this time. 14. Chronic bilateral low back pain, unspecified whether sciatica present This is a chronic medical condition that is stable since last assessment. No changes in treatment are suggested at this time. 15. Neuropathy This is a chronic medical condition that is stable since last assessment. No changes in treatment are suggested at this time. 16. Primary hypertension (CMS/HCC) Patient's blood pressure is currently well controlled. Continue with current medications and I will continue to monitor. Goal BP remains less than 130/80. - CBC; Future - Comprehensive metabolic panel; Future - CBC - Comprehensive metabolic panel 17. Diverticulosis of colon This is a chronic medical condition that is stable since last assessment. No changes in treatment are suggested at this time. 18. Screening for thyroid disorder Await lab - TSH W/REFLEX TO FT4; Future - TSH W/REFLEX TO FT4 19. Underweight Await lab - TSH W/REFLEX TO FT4; Future - TSH W/REFLEX TO FT4 20. Routine general medical examination at health care facility (Primary) Reviewed all relevant preventative screenings with the patient in detail. Medicare Wellness form completed and will be scanned into patient's chart. All needed testing was ordered. Will continue with yearly Medicare Wellness exams. Electronically signed by Jackie Adan NP on March 18, 2025 documented in this encounter [facility] 02-25-2025 History of Present illness Narrative Images from the original note were not included. Subjective Patient ID: Maritza Vicente is a 84 y.o. female who presents for No chief complaint on file.. Maritza presents today for a lump on her left leg , but that has since gone away. She would like to discuss issues with her stomach. She is having pain and she states she is not havinf bladder or bowel issues. Current Outpatient Medications on File Prior to Visit Medication Sig Dispense Refill atorvastatin (Lipitor) 10 MG tablet Take 1 tablet (10 mg) by mouth Daily 100 tablet 3 busPIRone (Buspar) 10 MG tablet Take 1 tablet (10 mg) by mouth in the morning and 1 tablet (10 mg) before bedtime. 180 tablet 3 cholecalciferol (Vitamin D-3) 25 MCG (1000 UT) capsule Take 1,000 Units by mouth in the morning. clobetasol (Temovate) 0.05 % ointment Continuous Glucose Quiller Hand (FreeStyle Brett 2 Alvin) device 1 Device 5 (five) times a day 1 each 0 Continuous Glucose Sensor (FreeStyle Brett 2 Sensor) misc CHANGE EVERY 14 DAYS DIRECTED 6 each 3 famotidine (Pepcid) 20 MG tablet TAKE ONE TABLET BY MOUTH EVERY DAY 100 tablet 2 ferrous sulfate 325 (65 Fe) MG tablet Take 325 mg by mouth in the morning and 325 mg before bedtime. gabapentin (Neurontin) 300 MG capsule Take 1 capsule (300 mg) by mouth at bedtime 30 capsule 3 lisinopril 10 MG tablet Take 1 tablet (10 mg) by mouth Daily 100 tablet 3 magnesium oxide (Mag-Ox) 400 mg tablet Take 300 mg by mouth Daily Multiple Vitamins-Minerals (MULTIVITAMIN ADULTS 50+ PO) Take 1 tablet by mouth in the morning. omeprazole (PriLOSEC) [address] capsule Take 1 capsule (40 mg) by mouth in the morning. Take before meals. Do not crush or chew.. 30 capsule 11 Premarin 0.625 MG/GM cream as directed Probiotic Product (Ztail) capsule Daily. SITagliptin (Januvia) 50 MG tablet Take 1 tablet (50 mg) by mouth in the morning. 100 tablet 3 sucralfate (Carafate) 1 g tablet Take 1 tablet (1 g) by mouth in the morning and 1 tablet (1 g) at noon and 1 tablet (1 g) in the evening. Take with meals. 90 tablet 11 tretinoin (Retin-A) 0.025 % cream Apply to face every evening as tolerated/30 day supply 20 g 11 No current facility-administered medications on file prior to visit. I have reviewed and reconciled the history and medication list with the patient today. Allergies Allergen Reactions Morphine Other Reaction(s): ELEVATED B/P Other Reaction(s): anaphylaxis Other reaction(s): CHEST PAIN ELEVATED BP Codeine Other Reaction(s): GI Disturbance Diazepam Other Reaction(s): Other (See Comments) Doxycycline Nausea Only Other Reaction(s): Flushing Iodine Molds & Smuts Unknown Nitrofurantoin Other Reaction(s): SEVERE GI ISSUES Other Reaction(s): stomach upset Propoxyphene Other Reaction(s): GI Disturbance Social History Tobacco Use Smoking status: Never Smokeless tobacco: Never Vaping Use Vaping status: Never Used Substance Use Topics Alcohol use: Never Drug use: Never Family History Problem Relation Name Age of Onset No Known Problems Mother Diabetes Father Past Medical History: Diagnosis Date Anxiety Diabetes mellitus (CMS/HCC) H/O elbow surgery Rt elbow Sx-Tennis elbow-30 yrs ago Hyperlipidemia (CMS/HCC) Hyperlipidemia (CMS/HCC) Hypertension (CMS/HCC) Knee joint cyst Lt knee-cyst removal-15 yrs ago Osteopenia Osteoporosis (CMS/HCC) Urethral stricture Past Surgical History: Procedure Laterality Date APPENDECTOMY CERVICAL DISC SURGERY CHOLECYSTECTOMY CT GUIDED TRANSVAGINAL TRANSRECTAL FLUID DRAIN 07/06/2021 CT GUIDED TRANSVAGINAL TRANSRECTAL FLUID DRAIN 07/06/2021 CYST REMOVAL Left knee ELBOW SURGERY HYSTERECTOMY Visit Vitals OB Status Hysterectomy Smoking Status Never Review of Systems Constitutional: Negative. HENT: Negative. Eyes: Negative. Respiratory: Negative. Cardiovascular: Negative. Gastrointestinal: Positive for abdominal pain. Genitourinary: Negative. Musculoskeletal: Negative. Skin: Negative. Neurological: Negative. Psychiatric/Behavioral: Negative. All other systems reviewed and are negative. Endocrine: Negative. Objective Physical Exam Vitals reviewed. Constitutional: Appearance: Normal appearance. HENT: Head: Normocephalic. Right Ear: Tympanic membrane normal. Left Ear: Tympanic membrane normal. Nose: Nose normal. Mouth/Throat: Mouth: Mucous membranes are moist. Pharynx: Oropharynx is clear. Cardiovascular: Rate and Rhythm: Normal rate. Pulmonary: Effort: Pulmonary effort is normal. Abdominal: Tenderness: There is abdominal tenderness. Skin: General: Skin is warm and dry. Neurological: General: No focal deficit present. Mental Status: She is alert and oriented to person, place, and time. Psychiatric: Mood and Affect: Mood normal. Behavior: Behavior normal. Thought Content: Thought content normal. Judgment: Judgment normal. Assessment/Plan Diagnoses and all orders for this visit: Acute gastritis with hemorrhage, unspecified gastritis type - famotidine (Pepcid) 40 MG tablet; Take 1 tablet (40 mg) by mouth in the morning and 1 tablet (40 mg) before bedtime. Pt was instructed by to stop omeprazole and carafate. She was to start Pepcid 40mg BID. She never followed through with this order. Colonoscopy and EGD only showed gastritis and diverticulosis. is recommending MRI if there is no improvement. She was to follow up in October but she did not realize that she was supposed to follow up. If the pepcid is ineffective, she will call GI. No follow-ups on file. documented in this encounter [facility] 11-03-2024 History of Present illness Narrative Sent in prescriptions for Januvia and Freestyle sensor documented in this encounter [facility] 10-15-2024 History of Present illness Narrative Images from the original note were not included. Subjective Patient ID: Maritza Vicente is a 84 y.o. female who presents for high blood surges. Maritza presents today for an issue with her blood sugars. She said that her readings are running in the 200s. She is eating a piece of toast I the morning with peanut butter and jelly/jam. This is not new for her. She eats a small lunch. She does on occasion eat potatoes but she does not eat a lot of carbohydrates. She has some urinary frequency but she has always went to the bathroom a lot. Will check a urine. Today, her blood pressure is low. We will cut her lisinopril in half and she will continue to monitor her BP. Current Outpatient Medications on File Prior to Visit Medication Sig Dispense Refill atorvastatin (Lipitor) 10 MG tablet busPIRone (Buspar) 10 MG tablet Take 1 tablet (10 mg) by mouth in the morning and 1 tablet (10 mg) before bedtime. 180 tablet 3 cholecalciferol (Vitamin D-3) 25 MCG (1000 UT) capsule Take 1,000 Units by mouth in the morning. clobetasol (Temovate) 0.05 % ointment Continuous Glucose Sensor (FreeStyle Brett 2 Sensor) misc CHANGE EVERY 14 DAYS DIRECTED 6 each 3 famotidine (Pepcid) 20 MG tablet Take 1 tablet (20 mg) by mouth Daily 100 tablet 2 ferrous sulfate 325 (65 Fe) MG tablet Take 325 mg by mouth in the morning and 325 mg before bedtime. lisinopril 10 MG tablet Take 1 tablet (10 mg) by mouth Daily 100 tablet 3 [] liver oil-zinc oxide (Desitin) 40 % ointment Apply topically if needed for irritation Apply to outer labial folds prior to clobetasole 56 g 2 magnesium oxide (Mag-Ox) 400 mg tablet Take 300 mg by mouth Daily Multiple Vitamins-Minerals (MULTIVITAMIN ADULTS 50+ PO) Take 1 tablet by mouth in the morning. omeprazole (PriLOSEC) [address] capsule Take 1 capsule (40 mg) by mouth in the morning. Take before meals. Do not crush or chew.. 30 capsule 11 Premarin 0.625 MG/GM cream as directed Probiotic Product (Ztail) capsule Daily. SITagliptin (Januvia) 50 MG tablet Take 1 tablet (50 mg) by mouth in the morning. 100 tablet 3 sucralfate (Carafate) 1 g tablet Take 1 tablet (1 g) by mouth in the morning and 1 tablet (1 g) at noon and 1 tablet (1 g) in the evening. Take with meals. 90 tablet 11 tretinoin (Retin-A) 0.025 % cream Apply to face every evening as tolerated/30 day supply 20 g 11 No current facility-administered medications on file prior to visit. I have reviewed and reconciled the history and medication list with the patient today. Allergies Allergen Reactions Morphine Other Reaction(s): ELEVATED B/P Other Reaction(s): anaphylaxis Other reaction(s): CHEST PAIN ELEVATED BP Codeine Other Reaction(s): GI Disturbance Diazepam Other Reaction(s): Other (See Comments) Doxycycline Nausea Only Other Reaction(s): Flushing Iodine Molds & Smuts Unknown Nitrofurantoin Other Reaction(s): SEVERE GI ISSUES Other Reaction(s): stomach upset Propoxyphene Other Reaction(s): GI Disturbance Social History Tobacco Use Smoking status: Never Smokeless tobacco: Never Vaping Use Vaping status: Never Used Substance Use Topics Alcohol use: Never Drug use: Never Family History Problem Relation Name Age of Onset No Known Problems Mother Diabetes Father Past Medical History: Diagnosis Date Anxiety Diabetes mellitus (CMS/HCC) H/O elbow surgery Rt elbow Sx-Tennis elbow-30 yrs ago Hyperlipidemia (CMS/HCC) Hyperlipidemia (CMS/HCC) Hypertension (CMS/HCC) Knee joint cyst Lt knee-cyst removal-15 yrs ago Osteopenia Osteoporosis (CMS/HCC) Urethral stricture Past Surgical History: Procedure Laterality Date APPENDECTOMY CERVICAL DISC SURGERY CHOLECYSTECTOMY CT GUIDED TRANSVAGINAL TRANSRECTAL FLUID DRAIN 07/06/2021 CT GUIDED TRANSVAGINAL TRANSRECTAL FLUID DRAIN 07/06/2021 CYST REMOVAL Left knee ELBOW SURGERY HYSTERECTOMY Visit Vitals OB Status Hysterectomy Smoking Status Never Review of Systems Constitutional: Negative. HENT: Negative. Eyes: Negative. Respiratory: Negative. Cardiovascular: Negative. Gastrointestinal: Negative. Genitourinary: Negative. Musculoskeletal: Negative. Skin: Negative. Neurological: Negative. Psychiatric/Behavioral: Negative. All other systems reviewed and are negative. Objective Physical Exam Vitals reviewed. Constitutional: Appearance: Normal appearance. HENT: Head: Normocephalic. Mouth/Throat: Mouth: Mucous membranes are moist. Pharynx: Oropharynx is clear. Eyes: Conjunctiva/sclera: Conjunctivae normal. Cardiovascular: Rate and Rhythm: Normal rate. Pulmonary: Effort: Pulmonary effort is normal. Skin: General: Skin is warm and dry. Neurological: General: No focal deficit present. Mental Status: She is alert and oriented to person, place, and time. Psychiatric: Mood and Affect: Mood normal. Behavior: Behavior normal. Thought Content: Thought content normal. Judgment: Judgment normal. 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 You may become tired until your body gets use to the medication. Type 2 diabetes mellitus with hypoglycemia without coma, without long-term current use of insulin ([facility]) - POCT glycosylated hemoglobin (Hb A1C) docked device - POCT urinalysis dipstick manually resulted A1C 5.5% We discussed today, the importance of proper diabetic control. We discussed possible complications of diabetes, including loss of vision, renal failure, increased risk of heart attacks and strokes, blood vessel and/or nerve damage. We discussed the recommended changes to reduce your blood sugars and minimize the risk of these complications. We discussed diabetic goals, including keeping A1C <7.0% and blood pressure < 130/70. The plan for achieving these goals is adherence to medications, diet, and regular activity as discussed during today's visit. We discussed current barriers to achieving these goals. We discussed dietary goals. We discussed calorie counting, as well as decreasing carbohydrate and simple sugar intake. Reviewed portion control with the patient. If the patient still has questions on this, a referral to a Dietitian can be arranged. I reviewed medications that aid in diabetic control. We discussed proper dosing and educated the patient on possible side effects and complications. The patient verbalized understanding of these instructions. Type 2 diabetes mellitus with diabetic cataract (CMS/HCC) Primary hypertension (CMS/HCC) Pt's blood pressure is low today. Pt instructed to cut her lisinopril in half and monitor her BP for 2 weeks and then return to the office with the log of her blood pressures. No follow-ups on file. documented in this encounter [facility] 09-16-2024 History of Present illness Narrative Images from the original note were not included. Subjective Patient ID: Maritza Vicente is a 84 y.o. female who presents for stomach pain/ burning. Maritza is here today for stomach pain for the last few months. Patient did try OTC Tums and omeprazole. With little help. No nausea or vomiting. GERD She complains of abdominal pain and heartburn. This is a new problem. The current episode started in the past 7 days. The problem occurs constantly. The problem has been gradually worsening. The heartburn duration is several minutes. The heartburn is located in the substernum. The heartburn is of moderate intensity. The heartburn wakes her from sleep. The heartburn limits her activity. The heartburn changes with position. Exacerbated by: nothing. Risk factors include lack of exercise. She has tried an antacid, head elevation, a PPI and a diet change for the symptoms. The treatment provided no relief. Current Outpatient Medications on File Prior to Visit Medication Sig Dispense Refill atorvastatin (Lipitor) 10 MG tablet busPIRone (Buspar) 10 MG tablet Take 1 tablet (10 mg) by mouth in the morning and 1 tablet (10 mg) in the evening and 1 tablet (10 mg) before bedtime. Do nott fill this medication as she has medication.. 270 tablet 3 cholecalciferol (Vitamin D-3) 25 MCG (1000 UT) capsule Take 1,000 Units by mouth in the morning. clobetasol (Temovate) 0.05 % cream Apply 1 application topically in the morning and 1 application before bedtime. Apply pea-size amount to affected area.. 30 g 1 clobetasol (Temovate) 0.05 % ointment Continuous Blood Gluc Sensor (FreeStyle Brett 2 Sensor) [facility] Use as directed 6 each 3 famotidine (Pepcid) 20 MG tablet Take 1 tablet (20 mg) by mouth Daily 100 tablet 2 ferrous sulfate 325 (65 Fe) MG tablet Take 325 mg by mouth in the morning and 325 mg before bedtime. lisinopril 10 MG tablet Take 1 tablet (10 mg) by mouth Daily 100 tablet 3 lisinopril 20 MG tablet Take 0.5 tablets (10 mg) by mouth Daily liver oil-zinc oxide (Desitin) 40 % ointment Apply topically if needed for irritation Apply to outer labial folds prior to clobetasole 56 g 2 magnesium oxide (Mag-Ox) 400 mg tablet Take 300 mg by mouth Daily Multiple Vitamins-Minerals (MULTIVITAMIN ADULTS 50+ PO) Take 1 tablet by mouth in the morning. Premarin 0.625 MG/GM cream as directed Probiotic Product (Ztail) capsule Daily. SITagliptin (Januvia) 50 MG tablet Take 1 tablet (50 mg) by mouth in the morning. 100 tablet 3 tretinoin (Retin-A) 0.025 % cream Apply to face every evening as tolerated/30 day supply 20 g 11 tretinoin (Retin-A) 0.025 % cream Apply to face, once daily at evening/night time, 30 day supply 20 g 5 No current facility-administered medications on file prior to visit. I have reviewed and reconciled the history and medication list with the patient today. Allergies Allergen Reactions Morphine Other Reaction(s): ELEVATED B/P Other Reaction(s): anaphylaxis Other reaction(s): CHEST PAIN ELEVATED BP Codeine Other Reaction(s): GI Disturbance Diazepam Other Reaction(s): Other (See Comments) Doxycycline Nausea Only Other Reaction(s): Flushing Iodine Molds & Smuts Unknown Nitrofurantoin Other Reaction(s): SEVERE GI ISSUES Other Reaction(s): stomach upset Propoxyphene Other Reaction(s): GI Disturbance Social History Tobacco Use Smoking status: Never Smokeless tobacco: Never Vaping Use Vaping status: Never Used Substance Use Topics Alcohol use: Never Drug use: Never Family History Problem Relation Name Age of Onset No Known Problems Mother Diabetes Father Past Medical History: Diagnosis Date Anxiety Diabetes mellitus (CMS/HCC) H/O elbow surgery Rt elbow Sx-Tennis elbow-30 yrs ago Hyperlipidemia (CMS/HCC) Hyperlipidemia (CMS/HCC) Hypertension (CMS/HCC) Knee joint cyst Lt knee-cyst removal-15 yrs ago Osteopenia Osteoporosis (CMS/HCC) Urethral stricture Past Surgical History: Procedure Laterality Date APPENDECTOMY CERVICAL DISC SURGERY CHOLECYSTECTOMY CT GUIDED TRANSVAGINAL TRANSRECTAL FLUID DRAIN 07/06/2021 CT GUIDED TRANSVAGINAL TRANSRECTAL FLUID DRAIN 07/06/2021 CYST REMOVAL Left knee ELBOW SURGERY HYSTERECTOMY Visit Vitals OB Status Hysterectomy Smoking Status Never Review of Systems Constitutional: Negative. HENT: Negative. Eyes: Negative. Respiratory: Negative. Cardiovascular: Negative. Gastrointestinal: Positive for abdominal pain and heartburn. Genitourinary: Negative. Musculoskeletal: Negative. Neurological: Negative. Psychiatric/Behavioral: Negative. Objective Physical Exam Vitals reviewed. Constitutional: Appearance: Normal appearance. HENT: Head: Normocephalic. Right Ear: Tympanic membrane normal. Left Ear: Tympanic membrane normal. Nose: Nose normal. Mouth/Throat: Mouth: Mucous membranes are moist. Pharynx: Oropharynx is clear. Cardiovascular: Rate and Rhythm: Normal rate and regular rhythm. Pulmonary: Effort: Pulmonary effort is normal. Skin: General: Skin is warm and dry. Neurological: General: No focal deficit present. Mental Status: She is alert and oriented to person, place, and time. Psychiatric: Mood and Affect: Mood normal. Behavior: Behavior normal. Assessment/Plan Diagnoses and all orders for this visit: Acute gastric ulcer, unspecified whether gastric ulcer hemorrhage or perforation present - sucralfate (Carafate) 1 g tablet; Take 1 tablet (1 g) by mouth in the morning and 1 tablet (1 g) at noon and 1 tablet (1 g) in the evening. Take with meals. The carafate will coat your esophagus and stomach. This will help any ulcers to heal. If the pain persists, we may need you to have an EGD. Gastroesophageal reflux disease, unspecified whether esophagitis present - omeprazole (PriLOSEC) [address] capsule; Take 1 capsule (40 mg) by mouth in the morning. Take before meals. Do not crush or chew.. GERD discussed with the patient. Pt educated regarding avoiding high acid food triggers such as caffeine products, fruits high in acid, spicy foods, and tomato based products. Advsied to avoid all NSAIDS medications, i.e. Motrin, Aleve. Ok to use Tylenol prn. Encouraged pt to avoid laying down immediately after meals. No follow-ups on file. documented in this encounter [facility] 09-09-2024 History of Present illness Narrative Reason for Appointment: Patient ID: Maritza Vicente is a 84 y.o. female who presents for Follow-up (Pt present today for a f/up visit for vaginal burning/pain.) Patient presents today for Acute Visit. MEDICATIONS Current Outpatient Medications Medication Instructions atorvastatin (Lipitor) 10 MG tablet busPIRone (BUSPAR) 10 mg, Oral, 3 times daily, Do nott fill this medication as she has medication. cholecalciferol (VITAMIN D-3) 1,000 Units, Daily clobetasol (Temovate) 0.05 % cream 1 application , Topical, 2 times daily, Apply pea-size amount to affected area. clobetasol (Temovate) 0.05 % ointment Continuous Blood Gluc Sensor ([employer] Brett 2 Sensor) [facility] [place] as directed famotidine (PEPCID) 20 mg, Oral, Daily ferrous sulfate 325 mg, 2 times daily lisinopril 10 mg, Oral, Daily lisinopril 10 mg, Oral, Daily liver oil-zinc oxide (Desitin) 40 % ointment Topical, As needed, Apply to outer labial folds prior to clobetasole magnesium oxide (MAG-OX) 300 mg, Daily Multiple Vitamins-Minerals (MULTIVITAMIN ADULTS 50+ PO) 1 tablet, Daily RT Premarin 0.625 MG/GM cream as directed Probiotic Product (Ztail) capsule Daily SITagliptin (JANUVIA) 50 mg, Oral, Every morning tretinoin (Retin-A) 0.025 % cream Apply to face every evening as tolerated/30 day supply tretinoin (Retin-A) 0.025 % cream Apply to face, once daily at evening/night time, 30 day supply ALLERGIES Allergies Allergen Reactions Morphine Other Reaction(s): ELEVATED B/P Other Reaction(s): anaphylaxis Other reaction(s): CHEST PAIN ELEVATED BP Codeine Other Reaction(s): GI Disturbance Diazepam Other Reaction(s): Other (See Comments) Doxycycline Nausea Only Other Reaction(s): Flushing Iodine Molds & Smuts Unknown Nitrofurantoin Other Reaction(s): SEVERE GI ISSUES Other Reaction(s): stomach upset Propoxyphene Other Reaction(s): GI Disturbance PROBLEMS Active Ambulatory Problems Diagnosis Date Noted Generalized anxiety disorder ([facility]) 04/10/2023 Lack of coordination 04/10/2023 Osteopenia 04/10/2023 Other urethral stricture, female 04/10/2023 Type 2 diabetes mellitus with hypoglycemia without coma, without long-term current use of insulin ([facility]) 04/10/2023 Cervical spondylosis 03/24/2019 Gastroesophageal reflux disease 03/24/2019 Hyperlipidemia ([facility]) 03/24/2019 Vitamin D deficiency 04/06/2016 Irritable bowel syndrome with diarrhea 04/11/2023 History of colonic polyps 03/24/2019 Cervical disc disorder with radiculopathy 03/24/2019 Adhesive capsulitis of shoulder 03/24/2019 Atrophic vaginitis 03/24/2019 Bilateral cataracts 03/24/2019 Breast lump 03/24/2019 Insomnia 03/24/2019 Lesion of liver 03/24/2019 Low back pain 03/24/2019 Mass of lower limb 03/24/2019 Neuropathy 03/24/2019 Temporomandibular joint disorder 03/24/2019 Hypertension (CMS/HCC) 06/26/2023 Diverticulosis of colon 09/17/2023 Underweight 09/17/2023 Acute diverticulitis 11/11/2023 Acute hyperglycemia 11/11/2023 AMS (altered mental status) 11/11/2023 Constipation 11/11/2023 Dizziness 11/11/2023 Generalized weakness 11/11/2023 Hypokalemia 11/11/2023 Pain pelvic 11/11/2023 Poor appetite 11/11/2023 Sacroiliitis (CMS/HCC) 11/11/2023 Weight loss 11/11/2023 Resolved Ambulatory Problems Diagnosis Date Noted Anxiety 03/24/2019 Diverticulitis 03/24/2019 Elevated blood pressure reading 03/24/2019 Hypervitaminosis D 05/30/2023 Left lower quadrant pain 03/24/2019 Musculoskeletal chest pain 03/24/2019 Past Medical History: Diagnosis Date Diabetes mellitus ([facility]) H/O elbow surgery Knee joint cyst Osteoporosis ([facility]/HCC) Urethral stricture HISTORY PAST MEDICAL HISTORY SOCIAL HISTORY Past Medical History: Diagnosis Date Anxiety Diabetes mellitus (CMS/HCC) H/O elbow surgery Rt elbow Sx-Tennis elbow-30 yrs ago Hyperlipidemia (CMS/HCC) Hyperlipidemia (CMS/HCC) Hypertension (CMS/HCC) Knee joint cyst Lt knee-cyst removal-15 yrs ago Osteopenia Osteoporosis (CMS/HCC) Urethral stricture Social History Tobacco Use Smoking status: Never Smokeless tobacco: Never Vaping Use Vaping status: Never Used Substance Use Topics Alcohol use: Never Drug use: Never FAMILY HISTORY Family History Problem Relation Name Age of Onset No Known Problems Mother Diabetes Father SURGICAL HISTORY Past Surgical History: Procedure Laterality Date APPENDECTOMY CERVICAL DISC SURGERY CHOLECYSTECTOMY CT GUIDED TRANSVAGINAL TRANSRECTAL FLUID DRAIN 07/06/2021 CT GUIDED TRANSVAGINAL TRANSRECTAL FLUID DRAIN 07/06/2021 CYST REMOVAL Left knee ELBOW SURGERY HYSTERECTOMY REVIEW OF SYSTEMS Review of Systems: Review of Systems Constitutional: Negative. HENT: Negative. Eyes: Negative. Respiratory: Negative. Cardiovascular: Negative. Gastrointestinal: Negative. Genitourinary: Negative. Musculoskeletal: Negative. Skin: Negative. Neurological: Negative. All other systems reviewed and are negative. Hematological: Negative. Endocrine: Negative. Allergic/Immunologic: Negative. OBJECTIVE Objective: Physical Exam Constitutional: Appearance: Normal appearance. She is normal weight. Genitourinary: Right Labia: tenderness. Left Labia: tenderness. Vaginal tenderness present. Cervix is absent. Uterus is absent. HENT: Head: Normocephalic. Cardiovascular: Rate and Rhythm: Normal rate. Pulses: Normal pulses. Pulmonary: Effort: Pulmonary effort is normal. Breath sounds: Normal breath sounds. Abdominal: Palpations: Abdomen is soft. Musculoskeletal: General: Normal range of motion. Neurological: General: No focal deficit present. Mental Status: She is alert and oriented to person, place, and time. Psychiatric: Mood and Affect: Mood normal. Behavior: Behavior normal. Thought Content: Thought content normal. Judgment: Judgment normal. Vitals and nursing note reviewed. Vitals: Estimated body mass index is 19.2 kg/m as calculated from the following: Height as of 06/25/24: 5' 2 . Weight as of this encounter: 105 lb. BP: 90/58 No LMP recorded. Patient has had a hysterectomy. ASSESSMENT & PLAN ICD-10-CM 1. Encounter for follow-up Z09 2. Vaginal burning N94.89 liver oil-zinc oxide (Desitin) 40 % ointment 3. Vaginal pain R10.2 Patient returns for follow up for vaginal irritation and pain. Patient states outside labial folds improving but continued pain and irritation inside when trying to apply clobetasole. We will have patient use vaseline internally prior to adding clobetasole, continue with premarin. Zinc oxide (desitin cream) to outside labial area folds. Pt will follow up via telehealth in 2 weeks or sooner if needed. We also discussed maybe adding amitriptiline for pain Documented by EDGARDO Leonard on behalf of: EDGARDO Leonard documented in this encounter [facility] 08-26-2024 History of Present illness Narrative Reason for Appointment: Patient ID: Maritza Vicente is a 84 y.o. female who presents for vaginal burning (Pt present today for vaginal burning and pain ) Patient presents today for vaginal burning/pain . Pt was seen in ER at [facility] on 08/24/2024 for the symptoms. MEDICATIONS Current Outpatient Medications Medication Instructions atorvastatin (Lipitor) 10 MG tablet busPIRone (BUSPAR) 10 mg, Oral, 3 times daily, Do nott fill this medication as she has medication. cholecalciferol (VITAMIN D-3) 1,000 Units, Oral, Daily clobetasol (Temovate) 0.05 % ointment Continuous Blood Gluc Sensor (FreeStyle Brett 2 Sensor) [facility] [place] as directed famotidine (PEPCID) 20 mg, Oral, Daily ferrous sulfate 325 mg, Oral, 2 times daily lisinopril 10 mg, Oral, Daily lisinopril 10 mg, Oral, Daily magnesium oxide (MAG-OX) 300 mg, Oral, Daily Multiple Vitamins-Minerals (MULTIVITAMIN ADULTS 50+ PO) 1 tablet, Oral, Daily RT Premarin 0.625 MG/GM cream as directed Probiotic Product ([employer] [facility]) capsule Daily SITagliptin (JANUVIA) 50 mg, Oral, Every morning tretinoin (Retin-A) 0.025 % cream Apply to face every evening as tolerated/30 day supply tretinoin (Retin-A) 0.025 % cream Apply to face, once daily at evening/night time, 30 day supply ALLERGIES Allergies Allergen Reactions Morphine Other Reaction(s): ELEVATED B/P Other Reaction(s): anaphylaxis Other reaction(s): CHEST PAIN ELEVATED BP Codeine Other Reaction(s): GI Disturbance Diazepam Other Reaction(s): Other (See Comments) Doxycycline Nausea Only Other Reaction(s): Flushing Iodine Molds & Smuts Unknown Nitrofurantoin Other Reaction(s): SEVERE GI ISSUES Other Reaction(s): stomach upset Propoxyphene Other Reaction(s): GI Disturbance PROBLEMS Active Ambulatory Problems Diagnosis Date Noted Generalized anxiety disorder ([facility]) 04/10/2023 Lack of coordination 04/10/2023 Osteopenia 04/10/2023 Other urethral stricture, female 04/10/2023 Type 2 diabetes mellitus with hypoglycemia without coma, without long-term current use of insulin ([facility]) 04/10/2023 Cervical spondylosis 03/24/2019 Gastroesophageal reflux disease 03/24/2019 Hyperlipidemia ([facility]) 03/24/2019 Vitamin D deficiency 04/06/2016 Irritable bowel syndrome with diarrhea 04/11/2023 History of colonic polyps 03/24/2019 Cervical disc disorder with radiculopathy 03/24/2019 Adhesive capsulitis of shoulder 03/24/2019 Atrophic vaginitis 03/24/2019 Bilateral cataracts 03/24/2019 Breast lump 03/24/2019 Insomnia 03/24/2019 Lesion of liver 03/24/2019 Low back pain 03/24/2019 Mass of lower limb 03/24/2019 Neuropathy 03/24/2019 Temporomandibular joint disorder 03/24/2019 Hypertension ([facility]) 06/26/2023 Diverticulosis of colon 09/17/2023 Underweight 09/17/2023 Acute diverticulitis 11/11/2023 Acute hyperglycemia 11/11/2023 AMS (altered mental status) 11/11/2023 Constipation 11/11/2023 Dizziness 11/11/2023 Generalized weakness 11/11/2023 Hypokalemia 11/11/2023 Pain pelvic 11/11/2023 Poor appetite 11/11/2023 Sacroiliitis ([facility]) 11/11/2023 Weight loss 11/11/2023 Resolved Ambulatory Problems Diagnosis Date Noted Anxiety 03/24/2019 Diverticulitis 03/24/2019 Elevated blood pressure reading 03/24/2019 Hypervitaminosis D 05/30/2023 Left lower quadrant pain 03/24/2019 Musculoskeletal chest pain 03/24/2019 Past Medical History: Diagnosis Date Diabetes mellitus (CMS/HCC) H/O elbow surgery Knee joint cyst Osteoporosis (CMS/HCC) Urethral stricture HISTORY PAST MEDICAL HISTORY SOCIAL HISTORY Past Medical History: Diagnosis Date Anxiety Diabetes mellitus (CMS/HCC) H/O elbow surgery Rt elbow Sx-Tennis elbow-30 yrs ago Hyperlipidemia (CMS/HCC) Hyperlipidemia (CMS/HCC) Hypertension (CMS/HCC) Knee joint cyst Lt knee-cyst removal-15 yrs ago Osteopenia Osteoporosis (CMS/HCC) Urethral stricture Social History Tobacco Use Smoking status: Never Smokeless tobacco: Never Vaping Use Vaping status: Never Used Substance Use Topics Alcohol use: Never Drug use: Never FAMILY HISTORY Family History Problem Relation Name Age of Onset No Known Problems Mother Diabetes Father SURGICAL HISTORY Past Surgical History: Procedure Laterality Date APPENDECTOMY CERVICAL DISC SURGERY CHOLECYSTECTOMY CT GUIDED TRANSVAGINAL TRANSRECTAL FLUID DRAIN 07/06/2021 CT GUIDED TRANSVAGINAL TRANSRECTAL FLUID DRAIN 07/06/2021 CYST REMOVAL Left knee ELBOW SURGERY HYSTERECTOMY REVIEW OF SYSTEMS Review of Systems: Review of Systems Constitutional: Negative. HENT: Negative. Eyes: Negative. Respiratory: Negative. Cardiovascular: Negative. Gastrointestinal: Negative. Genitourinary: Negative. Musculoskeletal: Negative. Skin: Negative. Neurological: Negative. All other systems reviewed and are negative. Hematological: Negative. Endocrine: Negative. Allergic/Immunologic: Negative. OBJECTIVE Objective: Physical Exam Constitutional: Appearance: Normal appearance. Genitourinary: No lesions in the vagina. Vaginal erythema present. No vaginal bleeding. No vaginal prolapse present. Mild vaginal atrophy present. Right Adnexa: not tender and no mass present. Left Adnexa: not tender and no mass present. Cervix is absent. No cervical discharge. Uterus is absent. Breasts: Breasts are soft. Right: Normal. Left: Normal. HENT: Head: Normocephalic. Nose: Nose normal. Mouth/Throat: Mouth: Mucous membranes are moist. Cardiovascular: Rate and Rhythm: Normal rate. Pulmonary: Effort: Pulmonary effort is normal. Abdominal: General: Bowel sounds are normal. Palpations: Abdomen is soft. Musculoskeletal: General: Normal range of motion. Cervical back: Normal range of motion. Neurological: General: No focal deficit present. Mental Status: She is alert. Skin: General: Skin is warm and dry. Psychiatric: Mood and Affect: Mood normal. Vitals and nursing note reviewed. Exam conducted with a lease purchase truck driver present. Vitals: Estimated body mass index is 19.57 kg/m as calculated from the following: Height as of 06/25/24: 5' 2 . Weight as of this encounter: 107 lb. BP: 110/62 No LMP recorded. Patient has had a hysterectomy. ASSESSMENT & PLAN ICD-10-CM 1. Vaginal burning N94.89 2. Vaginal pain R10.2 Pt present today for vaginal pain/burning. Pt was seen in ER on 08/24/2024 for the symptoms stated. Pt stated she is on premarin cream and has been on that medication for years now. Pt feels the cream may not be helping anymore with her issues. Pt wants to discuss what other medications there may be and why she is in so much pain. Pt sees Dr. Davis for her bladder issues and seen him recently and he did an exam and stated to pt everything looks fine. Vaginal exam today consistent with atrophy and irritation. Cultures obtained. We will start patient on clobetasole to use internally twice a day as well as pyridium. Patient will follow back up in office in 2 weeks. Documented by Ana Brothers MA on behalf of: EDGARDO Leonard documented in this encounter [facility] 06-25-2024 History of Present illness Narrative Images from the original note were not included. Subjective Patient ID: Maritza Vicente is a 84 y.o. female who presents for No chief complaint on file.. Pt went to er for having chest pain on 06/21/24 at [facility] they did do labs, EKG Pt is wearing a monitor right now, pt is seeing a cardio Pt is lightheaded dizzy feels like crap just feels tired , pt also stated when she eats her sugars will increase all the way up to 170 sometimes over 200 Pt pulse has been low ,her BP medication is down to 10mg today her BP was 155/76 pulse of 58 Flowsheet Row Patient Outreach from 06/23/[address] [facility] with Susan [employer] TECHNICIAN Hospital Information Discharged To: Home Setting Discharge Hospital [facility] Diagnosis chest pain Discharge Date 06/21/24 Engagement Call Start Time 1113 Admission Date 06/21/24 Medications Discharge medications reviewed and reconciled from hospital? Yes Is the patient having any side effects they believe may be caused by any medication additions or changes? No Does the patient have all medications ordered at discharge? Yes Is the patient taking all medications as directed (includes completed medication regime)? Yes Appointments Does the patient have a primary care provider? Yes Has the patient kept scheduled appointments due by today? Yes Self Management Patient Teaching Does the patient have access to their discharge instructions? Yes What is the patient's perception of their health status since discharge? Same Is the patient/caregiver able to teach back the hierarchy of who to call/visit for symptoms/problems? PCP, Specialist, Home Health nurse, Urgent Care, ED, 911 Yes Wrap Up Is the patient/caregiver familiar with Advance Care Planning? Yes Would the patient like more information on Advance Care Planning? No Call End Time 1125 Current Outpatient Medications on File Prior to Visit Medication Sig Dispense Refill atorvastatin (Lipitor) 10 MG tablet busPIRone (Buspar) 10 MG tablet Take 1 tablet (10 mg) by mouth in the morning and 1 tablet (10 mg) in the evening and 1 tablet (10 mg) before bedtime. Do nott fill this medication as she has medication.. 270 tablet 3 cholecalciferol (Vitamin D-3) 25 MCG (1000 UT) capsule Take 1,000 Units by mouth in the morning. clobetasol (Temovate) 0.05 % ointment Continuous Blood Gluc Sensor (FreeStyle Brett 2 Sensor) [facility] [place] as directed 6 each 3 famotidine (Pepcid) 20 MG tablet Take 1 tablet (20 mg) by mouth Daily 100 tablet 2 ferrous sulfate 325 (65 Fe) MG tablet Take 325 mg by mouth in the morning and 325 mg before bedtime. Januvia 50 MG tablet TAKE ONE TABLET BY MOUTH IN THE MORNING 90 tablet 2 lisinopril 20 MG tablet Take 1 tablet (20 mg) by mouth Daily 100 tablet 3 magnesium oxide (Mag-Ox) 400 mg tablet Take 300 mg by mouth Daily Multiple Vitamins-Minerals (MULTIVITAMIN ADULTS 50+ PO) Take 1 tablet by mouth in the morning. omeprazole (PriLOSEC) [address] capsule Take 1 capsule by mouth in the morning. Take before meals. Premarin 0.625 MG/GM cream as directed Probiotic Product (Ztail) capsule Daily. tretinoin (Retin-A) 0.025 % cream Apply to face every evening as tolerated/30 day supply 20 g 11 tretinoin (Retin-A) 0.025 % cream Apply to face, once daily at evening/night time, 30 day supply 20 g 5 No current facility-administered medications on file prior to visit. I have reviewed and reconciled the history and medication list with the patient today. Allergies Allergen Reactions Morphine Other Reaction(s): ELEVATED B/P Other Reaction(s): anaphylaxis Other reaction(s): CHEST PAIN ELEVATED BP Codeine Other Reaction(s): GI Disturbance Diazepam Other Reaction(s): Other (See Comments) Doxycycline Nausea Only Other Reaction(s): Flushing Iodine Molds & Smuts Unknown Nitrofurantoin Other Reaction(s): SEVERE GI ISSUES Other Reaction(s): stomach upset Propoxyphene Other Reaction(s): GI Disturbance Social History Tobacco Use Smoking status: Never Smokeless tobacco: Never Vaping Use Vaping status: Never Used Substance Use Topics Alcohol use: Never Drug use: Never Family History Problem Relation Name Age of Onset No Known Problems Mother Diabetes Father Past Medical History: Diagnosis Date Anxiety Diabetes mellitus (CMS/HCC) H/O elbow surgery Rt elbow Sx-Tennis elbow-30 yrs ago Hyperlipidemia (CMS/HCC) Hyperlipidemia (CMS/HCC) Hypertension (CMS/HCC) Knee joint cyst Lt knee-cyst removal-15 yrs ago Osteopenia Osteoporosis (CMS/HCC) Urethral stricture Past Surgical History: Procedure Laterality Date APPENDECTOMY CERVICAL DISC SURGERY CHOLECYSTECTOMY CT GUIDED TRANSVAGINAL TRANSRECTAL FLUID DRAIN 07/06/2021 CT GUIDED TRANSVAGINAL TRANSRECTAL FLUID DRAIN 07/06/2021 CYST REMOVAL Left knee ELBOW SURGERY HYSTERECTOMY Visit Vitals Smoking Status Never Review of Systems Neurological: Positive for dizziness. All other systems reviewed and are negative. Objective Physical Exam Vitals reviewed. Constitutional: Appearance: Normal appearance. HENT: Head: Normocephalic. Mouth/Throat: Mouth: Mucous membranes are moist. Pharynx: Oropharynx is clear. Cardiovascular: Rate and Rhythm: Normal rate and regular rhythm. Heart sounds: Normal heart sounds. Pulmonary: Effort: Pulmonary effort is normal. Breath sounds: Normal breath sounds. Skin: General: Skin is warm and dry. Neurological: General: No focal deficit present. Mental Status: She is alert and oriented to person, place, and time. Psychiatric: Mood and Affect: Mood normal. Behavior: Behavior normal. Thought Content: Thought content normal. Assessment/Plan Diagnoses and all orders for this visit: Hyponatremia - Basic metabolic panel; Future Eat a handful of potato chips and tomato juice. Recheck sodium on 07/03/2024 Primary hypertension (CMS/HCC) - lisinopril 20 MG tablet; Take 0.5 tablets (10 mg) by mouth Daily - Basic metabolic panel; Future Patient's blood pressure is currently well controlled. Continue with current medications and I will continue to monitor. Goal BP remains less than 130/80. No follow-ups on file. documented in this encounter [facility] 06-17-2024 History of Present illness Narrative Cardiology Consultation- New Consult Reason for referral: Cardiac consultation requested because of dizziness and bradycardia HPI: Maritza Vicente is a 84 y.o. female with history of hypertension presenting with complaint of episode of lightheadedness and dizziness with concern about heart rate in the mid 50s when she take her blood pressure. Patient describes some mild symptoms of orthostatic hypotension. She had been on lisinopril 20 mg daily. Patient had no previous history of coronary artery disease, congestive heart failure or valvular heart disease. Actually she underwent cardiac catheterization by Dr. Rosas a few years back which showed no coronary artery disease and normal LV systolic function. Her symptoms highly suspicious of orthostatic hypotension. Her heart rate appears in the mid 50s. Her previous lab from few months back noted and reviewed with her. Assessment 1. Episode of dizziness and orthostatic hypotension likely due to antihypertensive medication 2. Concern about a bradycardia with documented heart rate in the mid 50s doubt it is contributing to the patient's symptoms 3. No previous history of coronary disease, congestive heart failure or valvular heart disease. Patient a previous heart cath showed no obstructive coronary artery disease Last year 4. Probable anxiety 5. Hypertension running on the lower normal range 6. Hyperlipidemia on atorvastatin Plan 1. I advised the patient to cut down her lisinopril by half to 10 mg daily 2. I recommended a 30-day event monitor to ensure no significant bradycardia 3. I reviewed with the patient the result of his previous cardiac workup and reassured her cardiac hollins 4. I advised the patient to notify me change in cardiac status or symptoms Past Medical History: She has no past medical history on file. Surgical History: She has a past surgical history that includes Other surgical history (07/12/2021); Other surgical history (07/12/2021); Other surgical history (07/12/2021); Other surgical history (07/12/2021); Other surgical history (07/12/2021); and Other surgical history (07/12/2021). Family History: Family History Problem Relation Name Age of Onset Diabetes Father Diabetes Sister Diabetes Brother Social History: Social History Tobacco Use Smoking status: Never Smokeless tobacco: Never Substance Use Topics Alcohol use: Never Allergies: Morphine Current Medications: Current Outpatient Medications: atorvastatin (Lipitor) 10 mg tablet, 1 tablet (10 mg) once daily at bedtime., Disp: , Rfl: busPIRone (Buspar) 10 mg tablet, Take 1 tablet (10 mg) by mouth 3 times a day., Disp: , Rfl: cholecalciferol (Vitamin D3) 5,000 Units tablet, Take 1 tablet (5,000 Units) by mouth once daily., Disp: , Rfl: famotidine (Pepcid) 20 mg tablet, Take 0.5 tablets (10 mg) by mouth once daily., Disp: , Rfl: ferrous sulfate, 325 mg ferrous sulfate, tablet, Take 1 tablet (325 mg) by mouth twice a day., Disp: , Rfl: Januvia 50 mg tablet, Take 1 tablet (50 mg) by mouth once daily in the morning. Take before meals., Disp: , Rfl: L. acidophilus/Bifid. animalis 32 billion cell capsule, 1 capsule once daily., Disp: , Rfl: magnesium 200 mg tablet, 1 tablet (200 mg) once daily., Disp: , Rfl: multivitamin with minerals tablet, Take 1 tablet by mouth once daily., Disp: , Rfl: lisinopril 10 mg tablet, Take 1 tablet (10 mg) by mouth once daily., Disp: 90 tablet, Rfl: 3 Vitals: Vitals: 06/17/24 1420 09/04/24 1421 BP: 126/68 132/68 BP Location: Left arm Right arm Patient Position: Sitting Sitting Pulse: 61 61 Weight: 45.4 kg (100 lb) Height: 1.549 m (5' 1 ) EKG done in office today Review of Systems Constitutional: Positive for malaise/fatigue. Cardiovascular: Positive for chest pain. Neurological: Positive for light-headedness. All other systems reviewed and are negative. Objective Physical Exam Constitutional: Appearance: Normal appearance. HENT: Nose: Nose normal. Neck: Vascular: No carotid bruit. Cardiovascular: Rate and Rhythm: Normal rate. Pulses: Normal pulses. Heart sounds: Normal heart sounds. Pulmonary: Effort: Pulmonary effort is normal. Abdominal: General: Bowel sounds are normal. Palpations: Abdomen is soft. Musculoskeletal: General: Normal range of motion. Cervical back: Normal range of motion. Right lower leg: No edema. Left lower leg: No edema. Skin: General: Skin is warm and dry. Neurological: General: No focal deficit present. Mental Status: She is alert. Psychiatric: Mood and Affect: Mood normal. Behavior: Behavior normal. Thought Content: Thought content normal. Judgment: Judgment normal. Assessment and Plan: 1. 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 Essential hypertension lisinopril 10 mg tablet 3. Orthostatic hypotension ECG 12 Lead Follow Up In Cardiology 4. BMI less than 19,adult 5. Never smoked tobacco 6. Bradycardia Scribe Attestation By signing my name below, IHien RN , Scribe attest that this documentation has been prepared under the direction and in the presence of Rell Goodrich MD. Provider Attestation - Scribe documentation All medical record entries made by the Scribe were at my direction and personally dictated by me. I have reviewed the chart and agree that the record accurately reflects my personal performance of the history, physical exam, discussion and plan. documented in this encounter [facility] Work Phone: 06-17-2024 Instructions Hien Bruno RN - 06/17/2024 2:10 PM EDT Please bring all medicines, vitamins, and herbal supplements with you when you come to the office. Prescriptions will not be filled unless you are compliant with your follow up appointments or have a follow up appointment scheduled as per instruction of your physician. Refills should be requested at the time of your visit. Lisinopril 10 mg BMI was below normal measurement. Current weight: 45.4 kg (100 lb) Weight change since last visit (-) denotes wt loss -0.5 lbs Weight gain needed to achieve BMI of 18.5 = 2.3 Lbs Provided dietary education for weight gain to the patient. documented in this encounter [facility] Work Phone: [phone] History of Present illness Narrative Images from the original note were not included. Subjective Patient ID: Maritza Vicente is a 84 y.o. female who presents for Hypotension. Pt states her blood pressure has been dropping low at home making her feel lightheaded at times See recent telephone encounter--dr moreno advised she cut lisinopril in half and only take 1/2 tab daily she has been doing that--FYI the day she called the office she also called EMS they checked her over ran EKG everything was good so she did not go to ER Pt requesting A1C be checked today Dizziness This is a new problem. The current episode started more than 1 month ago. The problem occurs intermittently. The problem has been unchanged. Associated symptoms include vertigo and weakness. Nothing aggravates the symptoms. She has tried nothing for the symptoms. The treatment provided no relief. Current Outpatient Medications on File Prior to Visit Medication Sig Dispense Refill atorvastatin (Lipitor) 10 MG tablet busPIRone (Buspar) 10 MG tablet Take 1 tablet (10 mg) by mouth in the morning and 1 tablet (10 mg) in the evening and 1 tablet (10 mg) before bedtime. Do nott fill this medication as she has medication.. 270 tablet 3 cholecalciferol (Vitamin D-3) 25 MCG (1000 UT) capsule Take 1,000 Units by mouth in the morning. clobetasol (Temovate) 0.05 % ointment Continuous Blood Gluc Sensor (FreeStyle Brett 2 Sensor) misc Use as directed 6 each 3 famotidine (Pepcid) 20 MG tablet Take 1 tablet (20 mg) by mouth Daily 100 tablet 2 ferrous sulfate 325 (65 Fe) MG tablet Take 325 mg by mouth in the morning and 325 mg before bedtime. Januvia 50 MG tablet TAKE ONE TABLET BY MOUTH IN THE MORNING 90 tablet 2 lisinopril 20 MG tablet Take 1 tablet (20 mg) by mouth Daily 100 tablet 3 magnesium oxide (Mag-Ox) 400 mg tablet Take 300 mg by mouth Daily Multiple Vitamins-Minerals (MULTIVITAMIN ADULTS 50+ PO) Take 1 tablet by mouth in the morning. omeprazole (PriLOSEC) [address] capsule Take 1 capsule by mouth in the morning. Take before meals. Premarin 0.625 MG/GM cream as directed Probiotic Product (Ztail) capsule Daily. tretinoin (Retin-A) 0.025 % cream Apply to face every evening as tolerated/30 day supply 20 g 11 tretinoin (Retin-A) 0.025 % cream Apply to face, once daily at evening/night time, 30 day supply 20 g 5 No current facility-administered medications on file prior to visit. I have reviewed and reconciled the history and medication list with the patient today. Allergies Allergen Reactions Morphine Other Reaction(s): ELEVATED B/P Other Reaction(s): anaphylaxis Other reaction(s): CHEST PAIN ELEVATED BP Codeine Other Reaction(s): GI Disturbance Diazepam Other Reaction(s): Other (See Comments) Doxycycline Nausea Only Other Reaction(s): Flushing Iodine Molds & Smuts Unknown Nitrofurantoin Other Reaction(s): SEVERE GI ISSUES Other Reaction(s): stomach upset Propoxyphene Other Reaction(s): GI Disturbance Social History Tobacco Use Smoking status: Never Smokeless tobacco: Never Vaping Use Vaping status: Never Used Substance Use Topics Alcohol use: Never Drug use: Never Family History Problem Relation Name Age of Onset No Known Problems Mother Diabetes Father Past Medical History: Diagnosis Date Anxiety Diabetes mellitus (CMS/HCC) H/O elbow surgery Rt elbow Sx-Tennis elbow-30 yrs ago Hyperlipidemia (CMS/HCC) Hyperlipidemia (CMS/HCC) Hypertension (CMS/HCC) Knee joint cyst Lt knee-cyst removal-15 yrs ago Osteopenia Osteoporosis (CMS/HCC) Urethral stricture Past Surgical History: Procedure Laterality Date APPENDECTOMY CERVICAL DISC SURGERY CHOLECYSTECTOMY CT GUIDED TRANSVAGINAL TRANSRECTAL FLUID DRAIN 07/06/2021 CT GUIDED TRANSVAGINAL TRANSRECTAL FLUID DRAIN 07/06/2021 CYST REMOVAL Left knee ELBOW SURGERY HYSTERECTOMY Visit Vitals Ht 5' 2 BMI 18.51 kg/m Smoking Status Never BSA 1.42 m Review of Systems Constitutional: Negative. HENT: Negative. Eyes: Negative. Respiratory: Negative. Cardiovascular: Negative. Gastrointestinal: Negative. Genitourinary: Negative. Musculoskeletal: Negative. Neurological: Positive for dizziness, vertigo and weakness. Psychiatric/Behavioral: Negative. Endocrine: Negative. Objective Physical Exam Vitals reviewed. Constitutional: Appearance: Normal appearance. She is normal weight. HENT: Head: Normocephalic. Nose: Nose normal. Mouth/Throat: Mouth: Mucous membranes are moist. Pharynx: Oropharynx is clear. Eyes: Conjunctiva/sclera: Conjunctivae normal. Cardiovascular: Rate and Rhythm: Normal rate and regular rhythm. Pulmonary: Effort: Pulmonary effort is normal. Skin: General: Skin is warm and dry. Neurological: General: No focal deficit present. Mental Status: She is alert and oriented to person, place, and time. Psychiatric: Mood and Affect: Mood normal. Behavior: Behavior normal. Assessment/Plan Diagnoses and all orders for this visit: Type 2 diabetes mellitus with hypoglycemia without coma, without long-term current use of insulin ([facility]) - POCT Glycated hemoglobin, total We discussed today, the importance of proper diabetic control. We discussed possible complications of diabetes, including loss of vision, renal failure, increased risk of heart attacks and strokes, blood vessel and/or nerve damage. We discussed the recommended changes to reduce your blood sugars and minimize the risk of these complications. We discussed diabetic goals, including keeping A1C <7.0% and blood pressure < 130/70. The plan for achieving these goals is adherence to medications, diet, and regular activity as discussed during today's visit. We discussed current barriers to achieving these goals. We discussed dietary goals. We discussed calorie counting, as well as decreasing carbohydrate and simple sugar intake. Reviewed portion control with the patient. If the patient still has questions on this, a referral to a Dietitian can be arranged. I reviewed medications that aid in diabetic control. We discussed proper dosing and educated the patient on possible side effects and complications. The patient verbalized understanding of these instructions. Sinus bradycardia, persistent - Ambulatory referral to Cardiology; Future - Comprehensive metabolic panel; Future Pt's heart rate is in the 53-57 range when she is feeling weak and lightheaded. Will refer to cardiology due to sinus bradycardia that is symptomatic. Episodic lightheadedness - Ambulatory referral to Cardiology; Future - Comprehensive metabolic panel; Future Drink plenty of fluids when your BP is low. We will check some lab to make sure that electrolytes are WNL. Weakness generalized - Ambulatory referral to Cardiology; Future Drink plenty of fluids when your BP is low. When your heart rate is down and you are not feeling good, sit and relax. We will check some lab to make sure that electrolytes are WNL. No follow-ups on file. documented in this encounter [facility] 05-22-2024 Evaluation + Plan note Diagnostic Tests PendingUrine Culture 05/22/24 [facility] 05-12-2024 Hospital Discharge instructions Patient Education 05/12/2024 13:35:58 Urethral Stricture Urethral Stricture Urethral stricture is [...] reconstructed. Follow these instructions at home: Take cftn-byz-aiezjoj and prescription medicines only as told by [...] have with your health care provider. Document Revised: 08/07/2022 Document Reviewed: 08/07/2022 [employer] Patient Education 2022 [employer]. Follow Up Care 05/11/2024 11:12:36 With:RYAN LOBO, Haile Garay, URL Address: [facility] [address] , [place] [address]- When: Unknown [facility] 05-12-2024 Note Patient Education Urology Urethral Stricture Urethral stricture [...] Follow these instructions at home: ? Take qdkc-hsd-eslqtoy and prescription medicines only as told by [...] have with your health care provider. Document Revised: 08/07/2022 Document Reviewed: 08/07/2022 [employer] Patient Education ? 2022 [employer]. [facility] 07-10-2023 History of Present illness Narrative Subjective Patient ID: Maritza Vicente is a 83 y.o. female who presents for Diabetes and Hypertension. Subjective Maritza Vicente is a 82 y.o. female who presents for follow up of diabetes.. Current symptoms include: none. Patient denies foot ulcerations, nausea, polydipsia, polyuria, and visual disturbances. Evaluation to date has been: fasting lipid panel and hemoglobin A1C. Home sugars: BGs range between 115 and 130. Current Outpatient Medications on File Prior to Visit Medication Sig Dispense Refill aspirin 81 MG EC tablet Take 81 mg by mouth in the morning. atorvastatin (Lipitor) 10 MG tablet busPIRone (Buspar) 10 MG tablet Take 10 mg by mouth in the morning and 10 mg before bedtime. cholecalciferol (Vitamin D-3) 25 MCG (1000 UT) capsule Take 1,000 Units by mouth in the morning. cloNIDine (Catapres) 0.1 MG tablet Take 1 tablet (0.1 mg) by mouth every 6 (six) hours if needed for high blood pressure (For SBP > 170 only). 30 tablet 11 clotrimazole (Lotrimin) 1 % cream Apply topically 2 (two) times a day for 28 days. 30 g 2 dicyclomine (Bentyl) 10 MG capsule famotidine (Pepcid) 20 MG tablet Take 1 tablet (20 mg) by mouth in the morning. 100 tablet 2 ferrous sulfate 325 (65 Fe) MG tablet Take 325 mg by mouth in the morning and 325 mg before bedtime. gabapentin (Neurontin) 300 MG capsule Take 300 mg by mouth Daily as needed. lisinopril 30 MG tablet Take 1 tablet (30 mg) by mouth in the morning. 30 tablet 11 magnesium oxide (Mag-Ox) 400 mg tablet Take 200 mg by mouth in the morning. mirtazapine (Remeron) 15 MG tablet Multiple Vitamins-Minerals (MULTIVITAMIN ADULTS 50+ PO) Take 1 tablet by mouth in the morning. ondansetron ODT (Zofran-ODT) 4 MG disintegrating tablet Premarin 0.625 MG/GM cream as directed Probiotic Product (Ztail) capsule Daily. sertraline (Zoloft) 25 MG tablet SITagliptin (Januvia) 50 MG tablet Take 1 tablet (50 mg) by mouth in the morning. 30 tablet 11 No current facility-administered medications on file prior to visit. Allergies Allergen Reactions Morphine Other Reaction(s): ELEVATED B/P Other Reaction(s): anaphylaxis Other reaction(s): CHEST PAIN ELEVATED BP Codeine Other Reaction(s): GI Disturbance Diazepam Other Reaction(s): Other (See Comments) Doxycycline Nausea Only Other Reaction(s): Flushing Iodine Nitrofurantoin Other Reaction(s): SEVERE GI ISSUES Other Reaction(s): stomach upset Propoxyphene Other Reaction(s): GI Disturbance Social History Tobacco Use Smoking status: Never Smokeless tobacco: Never Substance Use Topics Alcohol use: Never Family History Problem Relation Name Age of Onset No Known Problems Mother No Known Problems Father Past Medical History: Diagnosis Date Anxiety Diabetes mellitus (CMS/HCC) Hyperlipidemia (CMS/HCC) Hypertension (CMS/HCC) Osteopenia Urethral stricture Past Surgical History: Procedure Laterality Date APPENDECTOMY CERVICAL DISC SURGERY CHOLECYSTECTOMY CT GUIDED TRANSVAGINAL TRANSRECTAL FLUID DRAIN 07/06/2021 CT GUIDED TRANSVAGINAL TRANSRECTAL FLUID DRAIN 07/06/2021 CYST REMOVAL Left knee ELBOW SURGERY HYSTERECTOMY Visit Vitals BP 126/68 Pulse 64 Ht 5' 2 Wt 96 lb SpO2 99% BMI 17.56 kg/m Smoking Status Never BSA 1.38 m Review of Systems Objective Physical Exam Constitutional: General: She is not in acute distress. Appearance: Normal appearance. She is well-developed. HENT: Head: Normocephalic and atraumatic. Eyes: General: No scleral icterus. Conjunctiva/sclera: Conjunctivae normal. Cardiovascular: Rate and Rhythm: Normal rate and regular rhythm. Heart sounds: Normal heart sounds. No murmur heard. Pulmonary: Effort: Pulmonary effort is normal. No respiratory distress. Breath sounds: Normal breath sounds. No wheezing, rhonchi or rales. Abdominal: General: There is no distension. Palpations: There is no mass. Tenderness: There is no abdominal tenderness. Hernia: No hernia is present. Skin: General: Skin is warm and dry. Neurological: General: No focal deficit present. Mental Status: She is alert and oriented to person, place, and time. Psychiatric: Mood and Affect: Mood normal. Behavior: Behavior normal. Assessment/Plan Diagnoses and all orders for this visit: Primary hypertension (CMS/HCC) - At goal. Type 2 diabetes mellitus with hypoglycemia without coma, without long-term current use of insulin (CMS/HCC) - FSBS log shows good control, most recent A1C is at or near goal. Continue current treatment plan as previously outlined without changes. Follow up in about 2 months (around 09/09/2023) for Routine F/U. documented in this encounter [facility] 04-30-2023 Evaluation note Encounter Date Diagnosis Assessment [...] will continue taking boost RTO 6 months [email or web address] Other 05-30-2023 Evaluation note* Encounter Date Diagnosis [...] shakes Patient is advised to lightly exercise [email or web address] Other 05-02-2023 Procedure [facility]04-21-2023 Procedure [facility]04-21-2023 Hospital Discharge instructions Additional Instructions DISCHARGE INSTRUCTIONS FOR CARDIAC AGRICULTURE INSPECTOR PHONE NUMBER OF YOUR PHYSICIAN: [phone] PROCEDURE: Heart Cath The following instructions have [...] cold, numb, blue or white, call the room service runner immediately. 4. ACTIVITY: You are advised to [...] bottle, follow the instructions on the bottle. [facility] is not responsible for incorrect prescription information provided by the patient during their visit. Do not stop your medications without consulting your health care provider. Please take the list with you to your next doctor's appointment.[facility] Work Phone: [phone]) 796-332403-21-2023 Evaluation note* Encounter Date Diagnosis Assessment Notes [...] since changing her diet to gluten free. [email or web address] Other 02-21-2023 Evaluation note* Encounter Date Diagnosis Assessment Notes Treatment Notes Treatment Clinical Notes Nov, Screening mammogram for breast cancer (ICD-10 - Z12.31) [email or web address] Other 02-21-2023 Evaluation note* Encounter Date Diagnosis Assessment Notes Treatment Notes Treatment Clinical Notes Nov, Diarrhea (ICD-10 - R19.7) PATIENT HAVING MULTIPLE BOUTS OF WATERY DIARRHEA. DIARRHEA WAKES HER UP AT NIGHT. PATIENT TO START [facility] PROCEED WITH LABS/STOOL STUDIES/ EGD/COLON Nov, Diverticulitis (ICD-10 - K57.92) Nov, Unintended weight loss (ICD-10 - R63.4) Nov, Loss of appetite (ICD-10 - R63.0) Nov, Change in bowel function (ICD-10 - R19.4) [email or web address] Other 02-16-2023 Evaluation note* Encounter Date Diagnosis [...] anxiety is better after speaking with specialist [email or web address] Other 01-28-2023 Evaluation note* Encounter Date Diagnosis Assessment Notes Treatment Notes Treatment Clinical Notes Oct, Essential hypertension (ICD-10 - I10) Oct, Generalized anxiety disorder (ICD-10 - F41.1) [email or web address] Other 01-17-2023 Hospital Discharge instructions Patient Education [...] reconstructed. Follow these instructions at home: Take izjt-rqd-fscvzhe and prescription medicines only as told by [...] 10/26/2016 Document Revised: 05/13/2019 Document Reviewed: 05/13/2019 [employer] Patient Education 2020 [employer]. Follow Up Care 10/29/2022 16:28:21 With:JESS ROSARIO, LAWRENCE Gracia, URL Address: [address] [place] [address] When: Unknown [facility] 01-16-2023 NoteNeither ovary is identified with certainty. There is no free pelvic fluid. Cursory evaluation [facility] [employer] Other 01-13-2023 Evaluation note* Encounter Date Diagnosis [...] understanding and is agreeable to treatment plan [email or web address] Other 01-13-2023 Evaluation note* Encounter Date Diagnosis Assessment Notes Treatment Notes Treatment Clinical Notes Oct, Essential hypertension (ICD-10 - I10) [email or web address] Other 12-26-2022 Evaluation note* Encounter Date Diagnosis [...] to see if this helps with swelling. [email or web address] Other 12-13-2022 Evaluation note* Encounter Date Diagnosis [...] to get safe recommendations for strength training [email or web address] Other 10-27-2022 Evaluation note* Encounter Date Diagnosis Assessment Notes Treatment Notes Treatment Clinical Notes Jul, Essential hypertension (ICD-10 - I10) Continue current treatment plan Jul, Generalized anxiety disorder (ICD-10 - F41.1) Continue current treatment plan [email or web address] Other 10-13-2022 Hospital Discharge instructions Patient Education [...] reconstructed. Follow these instructions at home: Take iiof-xvy-rtywqwy and prescription medicines only as told by [...] 10/26/2016 Document Revised: 05/13/2019 Document Reviewed: 05/13/2019 [employer] Patient Education CREATIV. Follow Up Care 07/25/2022 14:12:46 With:[facility] Address: [address] [place] [place] [id number] Business (1) When: Unknown Comments:our material scheduler will be contacting you for follow-up With:LAWRENCE MERACDO PA-C, URL Address: [address] [place] [place] [address] [phone] When: Unknown [facility] [phone] Evaluation note* Encounter Date Diagnosis Assessment Notes Treatment Notes Treatment Clinical Notes Jul, Orthostatic hypotension (ICD-10 - I95.1) Due to symptoms of dizziness and lightedness, stopped AMLODIPINE medication as discussed. Monitor blood pressure at home and discuss with room service runner when seen . Jul, Iron deficiency anemia, [...] insulin (ICD-10 - E11.9) Patient is scheduled wirh dietition at [facility] Jul, Essential hypertension (ICD-10 - I10) Jul, Other Patient is francisca chacon to follow up with Dr. Davis regarding Urinary symptoms she is experiencing because she is having symptoms intermittently [email or web address] Other 10-03-2022 Evaluation note* Encounter Date Diagnosis Assessment Notes Treatment Notes Treatment Clinical Notes Jul, Dysuria (ICD-10 - R30.0) Jul, Orthostatic hypotension (ICD-10 - I95.1) Due to symptoms of dizziness and lightedness, decreased medication as discussed. Monitor blood pressure at home and discuss with room service runner when seen . Jul, Iron deficiency anemia, [...] month to see how you are doing. [email or web address] Other 10-01-2022 Discharge summary Author Sarah Quevedo [facility] July 14, 2022 1:11pm Note Date/Time July 14, 2022 1: 11pm [facility] [address] [place] [address] Discharge Summary Signed Patient: Maritza Vicente MR#: [id number] : 1940 Acct:[id number] Age/Sex: 82 / F Adm Date: 2 Loc: 4N Room: 2T0454-[address]: Sarah Quevedo DO Copies to: [...] % (Auto) 56.4, Lymph % (Auto) 30.9, Cache % (Auto) 10.3, Eos % (Auto) 1.7, Baso % (Auto) 0.7, Neut # (Auto) 3.5, Lymph # (Auto) 1.9, Cache # (Auto) 0.6, Eos# (Auto) 0.1, Baso [...] % (Auto) 61.3, Lymph % (Auto) 26.6, Cache % (Auto) 10.0, Eos % (Auto) 1.7, Baso % (Auto) 0.4, Neut # (Auto) 3.2, Lymph # (Auto) 1.4, Cache # (Auto) 0.5, Eos# (Auto) 0.1, Baso # (Auto) 0.0, Nucleated RBC % (auto) 0.1 07/14/22 00:59: Ur Random Sodium 19 07/14/22 00:59: Urine Color Yellow, Urine Appearance Clear, Urine pH 7.0, Ur Specific [place] 1.004, Urine Protein Negative, Urine Glucose (UA) [...] signed by Sarah Quevedo DO> 07/14/22 1311 [facility] Work Phone: 1(798) 304-616410-01-2022 History and physical note Author Nj Cantu [facility] July 14, 2022 5:09am Note Date/Time July 14, 2022 5: 09am [facility] [address] [place] [address] Hospitalist H&P Signed Patient: Maritza Vicente MR#: [id number] : 1940 Acct:[id number] Age/Sex: 82 / F Adm Date: 2 Loc: ER Room: Type: [facility] ER Attending Dr: Copies to: NON STAFF [...] % (Auto) 26.6 % (.) 07/14/22 01:45 Cache % (Auto) 10.0 % (.) 07/14/22 01:45 Eos % (Auto) 1.7 % (.) 07/14/22 01:45 Baso % (Auto) 0.4 % (.) 07/14/22 01:45 Neut # (Auto) 3.2 x10E3/uL (1.8-7.7) 07/14/22 01:45 Lymph # (Auto) 1.4 x10E3/uL (1.00-4.8) 07/14/22 01:45 Cache # (Auto) 0.5 x10E3/uL (0.0-0.8) 07/14/22 01:45 [...] pH 7.0 (5.0-9.0) 07/14/22 00:59 Ur Specific [place] 1.004 (1.001-1.030) 07/14/22 00:59 Urine Protein Negative [...] signed by Nj Adorno MD> 07/14/22 0509 [facility] Work Phone: 1(438) 832-310409-26-2022 Evaluation note* Encounter Date Diagnosis Assessment Notes Treatment Notes Treatment Clinical Notes Jun, Essential hypertensi on (ICD-10 - I10) Jun, Intermittent lightheadedness (ICD-10 - R42) Jun, Type 2 diabetes mellitus without complication, without long-term current use of insulin (ICD-10 - E11.9) Jun, Generalized anxiety disorder (ICD-10 - F41.1) [email or web address] Other 07-29-2022 Evaluation note* Encounter Date Diagnosis [...] understanding and is agreeable to treatment plan [email or web address] Other 03-27-2022 Evaluation note* Encounter Date Diagnosis [...] completed to make sure infection has cleared. [email or web address] Other 12-10-2021 Evaluation note* Encounter Date Diagnosis [...] Patient care instructions given in writting by [facility] document. Additional time spent conducting pre-visit phone call, screening for symptoms, instructions on social distancing, application and removal of PPE, and cleaning of examination room, equipment and supplies was preformed. Patient education given for testing methodology and results. Patient care instructions given in writting by [facility] document. [email or web address] Other 10-07-2020 History of Present illness Narrative* [...] proceed with a 30- day event monitor. -[facility] [employer] [address] DO Work Phone: [phone] 164-373010-06-2020 History of Present illness Narrative* Patient is [...] proceed with a 30- day event monitor. -[facility] [employer] DO Work Phone: Consult note Author Mark Win [facility] May 2nd, 2023 10:55am Note Date/Time February 12, 2023 10:55a m [facility] [address] [place] [address] Gastroenterology Consult Note Signed Patient: Maritza Vicente MR#: [id number] : 1940 Acct:[id number] Age/Sex: 82 / F Adm Date: 3 Loc: Room: Type: [facility] Attending Dr: Mark Win MD Copies to: ALEXIA DEJESUS MD~ HPI Data of Consult Date of Consultation: 02/12/23 Requesting Physician: Mark Win MD Consult Narrative History of present illness: Ms. Vicente is a 82 year old female cc:: CC: Mark Win MD PMFSH Vaccinated for COVID-19?: Yes Medical History (Updated [...] mg PO DAILY 01/30/23 [History Confirmed 02/12/23] kecphwwgzqlr-wknhhhxs-rmzokq tablet 1 tab PO DAILY 01/30/23 [History [...] signed by MD Mark Win> 02/12/23 1055 [facility] Work Phone: Evaluation + Plan note No data available for this section [facility] evaluation + Plan note Future Appointments Appointment Date:05/01/2023 02:30:00 PM Scheduled Provider:Haile DAVIS MD Location:[facility] Appointment Type:URO Office Visit [facility] evaluation + Plan note Future Appointments Appointment Date:04/13/2026 02:15:00 PM Scheduled Provider:Haile DAVIS MD Location:[facility] Appointment Type:URO Office Visit [facility] evaluation noteNo InformationNort [employer] Other evaluation noteNo assessment information available [facility] Work Phone: evaluation note* Diagnosis Onset Date Resolution Status Acute hyponatremia acute AMS (altered mental status) acute Constipation acute Sacroiliitis acute [facility] Work Phone: evaluation note* Diagnosis Onset Date Resolution Status Weight loss acute [facility] Work Phone: evaluation note* Diagnosis Onset Date Resolution Status Irritable bowel syndrome with diarrhea acute [facility] Work Phone: evaluation note* Diagnosis Primary hypertension (CMS/HCC)- Primary Unspecified essential hypertension Type 2 diabetes mellitus with hypoglycemia without coma, without long-term current use of insulin (CMS/HCC) [facility] Diagnosis Vaginal burning Other specified symptom associated with female genital organs Vaginal pain Unspecified symptom associated with female genital organs documented in this encounter [facility]* Diagnosis Encounter for follow-up Vaginal burning Other specified symptom associated with female genital organs Vaginal pain Unspecified symptom associated with female genital organs documented in this encounter [facility]* Diagnosis Acute gastric ulcer, unspecified whether gastric ulcer hemorrhage or perforation present- Primary Gastroesophageal reflux disease, unspecified whether esophagitis present documented in this encounter [facility]* Diagnosis Hyponatremia- Primary Hyposmolality and/or hyponatremia Primary hypertension ([facility]) Unspecified essential hypertension documented in this encounter [facility]* Diagnosis Dizziness- Primary Dizziness and giddiness Essential hypertension Unspecified essential hypertension Orthostatic hypotension BMI less than 19,adult Never smoked tobacco Bradycardia Other specified cardiac dysrhythmias documented in this encounter [facility] Work Phone: Evaluation note* Diagnosis Type 2 diabetes mellitus with hypoglycemia without coma, without long-term current use of insulin ([facility])- Primary Sinus bradycardia, persistent Episodic lightheadedness Weakness generalized Other malaise and fatigue documented in this encounter [facility]* Diagnosis Diabetic mononeuropathy associated with type 2 diabetes mellitus (HCC) ([facility])- Primary Type 2 diabetes mellitus with hypoglycemia without coma, without long-term current use of insulin ([facility]) Type 2 diabetes mellitus with diabetic cataract ([facility]) Type II or unspecified type diabetes mellitus with ophthalmic manifestations, not stated as uncontrolled Primary hypertension ([facility]) Unspecified essential hypertension documented in this encounter [facility] Healthcare[facility]* Diagnosis Type 2 diabetes mellitus with hypoglycemia without coma, without long-term current use of insulin ([facility]) documented in this encounter [facility]* Diagnosis Acute gastritis with hemorrhage, unspecified gastritis type- Primary documented in this encounter [facility]* Diagnosis Routine general medical examination at health care facility- Primary Routine general medical examination at a health care facility Generalized anxiety disorder ([facility]/HCC) Generalized anxiety disorder Osteopenia of multiple sites Type 2 diabetes mellitus with hypoglycemia without coma, without long-term current use of insulin ([facility]) Cervical spondylosis Cervical spondylosis without myelopathy Gastroesophageal reflux disease without esophagitis Esophageal reflux Mixed hyperlipidemia (CMS/HCC) Mixed hyperlipidemia Vitamin D deficiency Irritable bowel syndrome with diarrhea Irritable bowel syndrome Cervical disc disorder with radiculopathy Other and unspecified disc disorder of cervical region Age-related cataract of both eyes, unspecified age-related cataract type Mass of breast, unspecified laterality Primary insomnia Persistent disorder of initiating or maintaining sleep Lesion of liver Chronic bilateral low back pain, unspecified whether sciatica present Neuropathy Mononeuritis of unspecified site Primary hypertension (CMS/HCC) Unspecified essential hypertension Diverticulosis of colon Diverticulosis of colon (without mention of hemorrhage) Screening for thyroid disorder Underweight [facility] Diagnosis Acute otalgia, right- Primary Multiple perforations of right tympanic membrane documented [facility] this encounter [facility] Author Nj Cantu [facility] July 14, 2022 5:09am Note Date/Time July 14, 2022 5: 09am [facility] [address] [place] [address] Hospitalist H&P Signed Patient: Maritza Vicente MR#: [id number] : 1940 Acct:[id number] Age/Sex: 82 / F Adm Date: 2 Loc: ER Room: Type: [facility] ER Attending Dr: Copies to: NON STAFF [...] % (Auto) 26.6 % (.) 07/14/22 01:45 Cache % (Auto) 10.0 % (.) 07/14/22 01:45 Eos % (Auto) 1.7 % (.) 07/14/22 01:45 Baso % (Auto) 0.4 % (.) 07/14/22 01:45 Neut # (Auto) 3.2 x10E3/uL (1.8-7.7) 07/14/22 01:45 Lymph # (Auto) 1.4 x10E3/uL (1.00-4.8) 07/14/22 01:45 Cache # (Auto) 0.5 x10E3/uL (0.0-0.8) 07/14/22 01:45 [...] pH 7.0 (5.0-9.0) 07/14/22 00:59 Ur Specific [place] 1.004 (1.001-1.030) 07/14/22 00:59 Urine Protein Negative [...] signed by Nj Adorno MD> 07/14/22 0509 [facility] Work Phone: History general Narrative - Reported* Type Description Date Medical History diabetes mallitus Medical History hypertension Medical History hyperlipidemia Medical History osteopenia Medical History urethra stricture Surgical History Cervical disc surgery Surgical History appendectomy Surgical History cholecystectomy Surgical History hysterectomy Surgical History ganglion cyst lt knee Surgical History elbow surgery, rt Surgical History urethra stricture Hospitalization History see above [email or web address] Other History of Present illness Narrative* The [...] medication regimen. She denies medication side effects. [facility] [address] DO Work Phone: [facility] Work Phone: [facility] instructions[facility] Work Phone: Hospital Discharge instructions Additional Instructions Follow-up with your primary care doctor Return to ED if develop worsening symptoms or concernsSum[facility] Health Work Phone: Hospital Discharge instructions Additional Instructions Please keep a food diary at home and write down everything you are eating and the amount for 2 days Bring this to your follow-up appointment with your PCP for review STOP taking hydrochlorothiazideSumma Health Work Phone: Hospital Discharge instructions Additional Instructions Take the antibiotics as prescribed to completion Use Colace and MiraLAX while you are taking the pain medications You Zofran as needed for nausea Make a follow-up appoint with your GI doctor for colonoscopy Return for fevers, worsening pain, blood in your stool, vomitingSumma Health Work Phone: Hospital Discharge instructions Additional Instructions Continue current meds Follow-up with your private physician Return if symptoms are worseSumma Health Work Phone: Hospital Discharge instructions No data available for this section [facility] Additional Instructions DISCHARGE INSTRUCTIONS FOR [...] if you have any problems. -Office number [phone] Health Work Phone: Hospital Discharge instructions Additional Instructions If your symptoms return/worsen or you develop any further concerns or symptoms please see your doctor or return to the emergency department immediately.[facility] Work Phone: Progress note No data available for this section [facility] Reason for referral (narrative)* Consultation (Routine) - Pending Review Specialty Diagnoses / Procedures Referred By Contac t Referred To Contact Cardiology Diagnoses Sinus bradycardia, persistent Episodic lightheadedness Weakness generalized Procedures [place] OFFICE/OUTPATIENT NEW HIGH MDM 60 MINUTES Antionette, Jackie M, SUPER[employer] [address] [place] [address] Danilo Strange MD [address] [facility] [address] [place] [address] Referral ID Status Reason Start Date Expiration Date Visits Requested Visits Authorized [id number] Pending Review Specialty Services Required 2024 12/13/2024 1 1 KAV[facility] for visit Narrative2 month f/u-referral for pelvic pain, [facility] [employer] Other Chief Complaint MARITZA VICENTE is being seen for PER WPM.* Add on d/t chest pain: 'I am [...] arterioscl erotic cardiovascular disease: Mother(V17.49, Z82.49) Status:Active Relationship Condition Age at Onset Recorded Date/T esteban brother Diabetes mellitus Unknown father Diabetes mellitus Unknown sister Diabetes mellitus Unknown brother Unknown father Unknown family member Unknown Not Specified Unknown sister Unknown Relationship Condition Age at Onset Recorded Date/T esteban brother Diabetes mellitus Unknown father Diabetes mellitus Unknown sister Diabetes mellitus Unknown brother Unknown father Unknown family member Unknown mother Unknown sister Unknown Chief Complaint and Reason for Visit Chief [...] Weight loss Chief Complaint lower abd pain Chief Complaint lower abd pain Screening Chest Pain Chief Complaint Screening Chest Pain yearly follow up Reason for Visit Irritable bowel synd aleksandr with diarrhea Chief Complaint yearly follow up chest pain weakness Reason for Visit Irritable bowel synd aleksandr with diarrhea Chief Complaint chest pain weakness cp Chief Complaint cp r10.9 Chief Complaint Admit Date r10.9 June 03, 2024 4: 13pm R19.7 August 31, 2024 3:43pm Chief Complaint Admit Date Screening January 27, 2025 2:5 2pm Advance Directives No Advanced Directives Records Found Advance Directive Response Recorded Date/ Time Advance Directives No May 08 9:51pm Advance Directive Response Recorded Date/ Time Advance Directives No May 08 8:51pm Summary Purpose Reason for Referral Specialty Diagnoses / Procedures Referred By Prema t Referred To Contact Cardiology Diagnoses Dizziness Procedures Holter Or Event Systems Security Consultant Rell Goodrich MD [address] [facility] [address], [address] [address] Referral ID Status Reason Start Date Expiration Date V isits Requested Visits Authorized [id number] Pending Review 06/17/2024 06/17/2025 1 1 Specialty Diagnoses / Procedures Referred By Prema t Referred To Contact Cardiology Diagnoses Orthostatic hypotension Procedures Follow Up In Cardiology Rell Goodrich MD [address] [facility] 2, [address] [place] [address] Rell Goodrich MD [address] [place] [address] [address], [address] [address] Referral ID Status Reason Start Date Expiration Date V isits Requested Visits Authorized [id number] Authorized 06/17/2024 06/17/2025 1 1 Specialty Diagnoses / Procedures Referred By Contac t Referred To Contact Diagnoses Dizziness Orthostatic hypotension Procedures ECG 12 Lead Rell Goodrich MD [address] [place] [address] 2, [place] [id number] Referral ID Status Reason Start Date Expiration Date V isits Requested Visits Authorized [id number] Authorized 06/17/2024 06/17/2025 1 1 Additional Source Comments REASON FOR VISIT (unrecogniz ed section and content) Reason Comments Diabetes Hypertension Reason Comments vaginal burning Pt present today for vaginal burning and pain Reason Comments Follow-up Pt present today for a f/up visit for vaginal burning/pain. Reason Comments Hospital Follow-up Reason Comments New Patient Visit Slow heart rate Specialty Diagnoses / Procedures Referred By Contac t Referred To Contact Diagnoses Dizziness Orthostatic hypotension Procedures ECG 12 Lead Rell Goodrich MD [address] [facility] [address], [address] [address] Referral ID Status Reason Start Date Expiration Date V isits Requested Visits Authorized [id number] Authorized 06/17/2024 06/17/2025 1 1 Reason Comments Hypotension Reason Comments Ear Problem Care Teams (unrecognized sec tion and content) Team Status: Inactive Member Role Status Dates Benny Vick MD Primary Care Provider Active Haile Bruner , DO Emergency Provider Active Team Status: Inactive [...] Primary Care Provider Active Gregg Rios , DO Emergency Provider Active Nj Adorno MD [...] Dates NON STAFF Primary Care Provider Active Alexia Oleg , RENT AND HOUSING INVESTIGATOR-C Attending Provider Active Team Status: Inactive Member Role Status Dates NON STAFF Primary Care Provider Active Sergio Lopez DO RES Active Maico Carranza DO Emergency Provider Active Team Status: Inactive Member Role Status Dates Alexia Oleg , RENT AND HOUSING INVESTIGATOR-C Attending Provider Active Team Status: Active Member Role Status Dates Alexia Oleg , RENT AND HOUSING INVESTIGATOR-C Primary Care Provider, Atten ding Provider Active Team Status: Inactive Member Role Status Dates Alexia Oleg , RENT AND HOUSING INVESTIGATOR-C Primary Care Provider Active Arely Dasilva APRN Attending Provider Active Team Status: Active Member Role Status Dates Alexia Oleg , RENT AND HOUSING INVESTIGATOR-C Primary Care Provider Active Team Status: Inactive Member Role Status Dates Alexia Oleg , RENT AND HOUSING INVESTIGATOR-C Primary Care Provider, Atten ding Provider Active Team Status: Inactive Member Role Status Dates Alexia Oleg , RENT AND HOUSING INVESTIGATOR-C Primary Care Provider Active Haile Bruner DO Emergency Provider Active Team Status: Inactive Member Role Status Dates Alexia Oleg , RENT AND HOUSING INVESTIGATOR-C Primary Care Provider Active Jordy Berry MD Emergency Provider Active Team Status: Inactive Member Role Status Dates Alexia Oleg , RENT AND HOUSING INVESTIGATOR-C Primary Care Provider Active Mark Win MD Attending Provider Active Team Status: Inactive Member Role Status Dates Alexia Oleg , RENT AND HOUSING INVESTIGATOR-C Primary Care Provider Active Rory Rsoas MD Attending Provider Active Team Status: Active Member Role Status Dates Wilian Moreno II MD Primary Care Provider Active Team Status: Inactive Member Role Status Ileana Moreno II MD Primary Care Provider Active Ricki Sam DO Emergency Provider Active Team Status: Inactive Member Role Status Dates Wilian Moreno II MD Primary Care Provider Active Start: August 23, 2023 End: August 24, 2023 Ricki Sam DO Emergency Provider Active Start: August 23, 2023 End: August 24, 2023 Team Status: Inactive Member Role Status Ileana Moreno II MD Primary Care Provid er, Referring Provider Active Start: November 20, 2023 End: November 20, 2023 Referral Self Attending Provider Active Start: Say andrews 2023 End: November 20, 2023 Team Status: Inactive Member Role Status Dates Wilian Moreno II MD Primary Care Provider Active Start: November 20, 2023 End: November 21, 2023 Kieran Christianson MD Emergency Provider Active St art: November 20, 2023 End: November 21, 2023 Team Status: Inactive Member Role Status Dates Wilian Moreno II MD Primary Care Provider Active Start: December 31, 2023 End: December 31, 2023 Guy Hudson APRN Attending Provider Active Start: December 31, 2023 End: December 31, 2023 Team Status: Inactive Member Role Status Dates Wilian Moreno II MD Primary Care Provider Active Start: February 28, 2024 End: February 28, 2024 Haile Bruner DO Emergency Provider Active St art: February 28, 2024 End: February 28, 2024 Team Status: Inactive Member Role Status Dates Wilian Moreno II MD Primary Care Provider Active Start: May 10, 2024 End: May 10, 2024 Kieran Christianson MD Emergency Provider Active St art: May 10, 2024 End: May 10, 2024 Team Status: Inactive Member Role Status Dates Wilian Moreno II MD Primary Care Provider Active Start: June 03, 2024 End: June 03, 2024 MADELIN Morales Attending Provider Active Start: June 03, 2024 End: June 03, 2024 Junior Assistant Manager Relationship Specialty Start Date End Date Wilian Moreno MD [address] [facility] [address] [place] [address] PCP - General Internal Medicine 04/10/23 Team Status: Inactive Member Role Status Dates Wilian Moreno II MD Primary Care Provider Active Start: August 31, 2024 End: August 31, 2024 Guy Hudson APRN Attending Provider Active Start: August 31, 2024 End: August 31, 2024 Junior Assistant Manager Relationship Specialty Start Date End Date Wilian Moreno MD [address] [facility] [address] [place] [address] PCP - General Internal Medicine 04/10/23Saturday, Susan, ELECTRO MECHANICAL SOLAR TECHNICIAN [address] [place] [address] Licensed Practical Nurse Family Medicine 04/30/24 Junior Assistant Manager Relationship Specialty Start Date End Date Wilian Moreno MD [address] [place] [address] PCP - General Internal Medicine 04/10/23Saturday, Susan, ELECTRO MECHANICAL SOLAR TECHNICIAN [address] [place] [address] Licensed Practical Nurse Family Medicine 04/30/24 Junior Assistant Manager Relationship Specialty Start Date End Date Wilian Moreno MD [address] [place] [address] PCP - General Internal Medicine 04/10/23Saturday, Susan, ELECTRO MECHANICAL SOLAR TECHNICIAN [address] [place] [address] Licensed Practical Nurse Family Medicine 04/30/24 Junior Assistant Manager Relationship Specialty Start Date End Date Wilian Moreno MD [address] [place] [address] PCP - General Internal Medicine 04/10/23Saturday, Susan, ELECTRO MECHANICAL SOLAR TECHNICIAN [address] [place] [address] Licensed Practical Nurse Family Medicine 04/30/24 Junior Assistant Manager Relationship Specialty Start Date End Date Wilian Moreno MD [address] [place] [address] PCP - General Internal Medicine 04/10/23Saturday, Susan, ELECTRO MECHANICAL SOLAR TECHNICIAN [address] [place] [address] Licensed Practical Nurse Family Medicine 04/30/24 Junior Assistant Manager Relationship Specialty Start Date End Date Wilian Moreno MD [address] [place] [address] PCP - General Internal Medicine 04/10/23Saturday, Susan, ELECTRO MECHANICAL SOLAR TECHNICIAN [address] [place] [address] Licensed Practical Nurse Family Medicine 04/30/24 Junior Assistant Manager Relationship Specialty Start Date End Date Alexia Dejesus, LICENSED LIFE AND HEALTH AGENT-MANAGER TRADING [address] [facility] [address] PCP - General 01/21/23 Junior Assistant Manager Relationship Specialty Start Date End Date Wilian Moreno MD [address] [place] [address] PCP - General Internal Medicine 04/10/23Saturday, Susan, ELECTRO MECHANICAL SOLAR TECHNICIAN [address] [place] [address] Licensed Practical Nurse Family Medicine 04/30/24 Junior Assistant Manager Relationship Specialty Start Date End Date Wilian Moreno MD [address] [place] [address] PCP - General Internal Medicine 04/10/23Saturday, Susan, ELECTRO MECHANICAL SOLAR TECHNICIAN [address] [place] [address] Licensed Practical Nurse Family Medicine 04/30/24 Junior Assistant Manager Relationship Specialty Start Date End Date Wilian Moreno MD [address] [place] [address] PCP - General Internal Medicine 04/10/23Saturday, Susan, ELECTRO MECHANICAL SOLAR TECHNICIAN [address] [place] [address] Licensed Practical Nurse [facility] Medicine 04/30/24 Junior Assistant Manager Relationship Specialty Start Date End Date Wilian Moreno MD [address] [place] [address] PCP - General Internal Medicine 04/10/23Saturday, Susan, ELECTRO MECHANICAL SOLAR TECHNICIAN [address] [place] [address] Licensed Practical Nurse [facility] Medicine 04/30/24 Team Status: Active Member Role Status Dates Jackie Adan NP-C Primary Care Provider Active Team Status: Inactive Member Role Status Dates Referral Self Attending Provider Active Start: A pril 2024 End: January 27, 2025 Jackie Adan SUPERVISOR [employer]-C Primary Care Pro vider, Referring Provider Active Start: January 27, 2025 End: January 27, 2025 Junior Assistant Manager Relationship Specialty Start Date End Date Wilian Moreno MD [address] [place] [address] PCP - General Internal Medicine 04/10/23 Celia Zamora LPN 01/01/25 Junior Assistant Manager Relationship Specialty Start Date End Date Wilian Moreno MD [address] [place] [address] PCP - General Internal Medicine 04/10/23 Celia Zamora LPN 01/01/25 Junior Assistant Manager Relationship Specialty Start Date End Date Wilian Moreno MD [address] [place] [address] PCP - General Internal Medicine 04/10/23 Celia Zamora LPN 01/01/25 Junior Assistant Manager Relationship Specialty Start Date End Date Wilian Moreno MD [address] [facility] [place] [address] PCP - General Internal Medicine 04/10/23 Celia Zamora LPN [address] [facility] [place] [address] 01/01/25 Junior Assistant Manager Relationship Specialty Start Date End Date Wilian Moreno MD [address] [facility] [address] [place] [address] PCP - General Internal Medicine 04/10/23 Celia Zamora LPN [address] [facility] [place] [address] 01/01/25 Goals (unrecognized section and content) Goals may be documented in a n alternate section INFORMATION SOURCE (unrecogn ized section and content) DATE CREATED AUTHOR 07/14/2022 [facility] DATE CREATED AUTHOR AUTHOR'S ORGANIZ ATION 01/23/2023 [employer] DATE CREATED AUTHOR AUTHOR'S ORGANIZ ATION 02/14/[address] [facility] DATE CREATED AUTHOR AUTHOR'S ORGANIZ ATION 03/25/2023 [facility] DATE CREATED AUTHOR AUTHOR'S ORGANIZ ATION 05/24/2024 [facility] DATE CREATED AUTHOR AUTHOR'S ORGANIZ ATION 05/25/2024 [facility] DATE CREATED AUTHOR AUTHOR'S ORGANIZ ATION 06/22/2024 [facility] DATE CREATED AUTHOR AUTHOR'S ORGANIZ ATION 08/30/2024 [facility] DATE CREATED AUTHOR AUTHOR'S ORGANIZ ATION 02/01/2025 [facility] DATE CREATED AUTHOR AUTHOR'S ORGANIZ ATION 04/03/2025 [facility] DATE CREATED AUTHOR AUTHOR'S ORGANIZ ATION 04/08/2025 [facility] EPIC DATE CREATED AUTHOR AUTHOR'S ORGANIZ ATION 04/17/2025 [facility] FOR RECORDS PERTAINING TO PATIENTS WHO ARE [...] BE BASED ON THE PRIMARY CLINICAL RECORDS. [facility] [employer] provides no warranty or guarantee of the accuracy or completeness of information in this document.
--- NOTE | 2025-04-25 17:38 | ECG_ITS ---
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
--- NOTE | 2025-04-25 17:42 | ED.GENADUL1 ---
HPI HPI - General Adult General Chief complaint: Headache Stated complaint: HEADACHE, LIGHTHEADED Time Seen by Provider: 04/25/25 17:27 Source: patient Mode of arrival: walk-in Limitations: no limitations History of Present Illness HPI narrative: Patient is an 84-year-old female who presents to the emergency department today for evaluation concerns for paresthesias to the left parietal region of her head. She is a very vague and somewhat confusing historian. She mention she has had this sensation for months patient's this became worse this evening. She mention she took Tylenol for this discomfort 3 or 4 days ago which she states did alleviated some. She denies any headaches otherwise. No vision difficulties. No neck/back pain. No chest pain or shortness of breath. She does endorse some lightheadedness at baseline but feels it may be a little worse today. Denies any paresthesias, weakness, loss of movement to extremities. Denies any cardiovascular history including PR or CVA. She states she is diabetic but does not know any other medical history she has. Related Data Home Medications ?Medication ?Instructions ?Recorded ?Confirmed atorvastatin 10 mg tablet 10 mg PO DAILY 09/02/23 03/23/25 buspirone 10 mg tablet 10 mg PO DAILY 09/02/23 03/23/25 lisinopril 30 mg tablet 10 mg PO DAILY 09/02/23 03/23/25 sitagliptin phosphate 50 mg tablet 50 mg PO DAILY 09/02/23 03/23/25 (Januvia) famotidine 20 mg tablet 20 mg PO Q12H 11/19/23 03/23/25 magnesium 200 mg tablet 200 mg PO DAILY 11/19/23 03/23/25 gabapentin 300 mg capsule 300 mg PO DAILY 03/23/25 03/23/25 Previous Rx's ?Medication ?Instructions ?Recorded ofloxacin 0.3 % ear drops 5 drp otic (ear) BID 5 days #5 mL 03/23/25 Allergies Allergy/AdvReac Type Severity Reaction Status Date / Time codeine Allergy Unknown Unknown Verified 04/25/25 17:23 Opioid HPI Opioid Management Most Recent Opioid Data: Last Pain Scale 6 Today, 17:56 Last MAR Pain Assessment Today, 17:56 Review of Systems ROS Status of ROS 10 or more systems reviewed and unremarkable except as noted in history and below PFSH PFSH Social History Smoking status: Never smoker Little interest or pleasure in doing things: not at all Feeling down, depressed, or hopeless: not at all Exam Narrative Exam Narrative: Constituational: Awake/ alert, no apparent distress, well hydrated HENMT: normocephalic, no temporal scalp tenderness, external ears normal, moist oral mucous membranes and oropharynx normal Eyes: EOMI and conjunctivae normal Neck: ROM intact, no meningeal signs Chest: inspection of chest normal Respiratory: Normal respiratory effort, clear to auscultation bilaterally Cardio: regular rate and regular rhythm GI: soft to palpation and non-tender Back: nontender MSK: ROM intact, +NVI Skin: no rashes or petechiae Neuro: no focal deficits Psych: mental status grossly normal Constitutional Vital Signs, click to edit/add: Last Vital Signs Temp 97.4 F L 04/25/25 17:19 Pulse 59 L 04/25/25 17:19 Resp 18 04/25/25 17:19 BP 154/78 H 04/25/25 17:19 Pulse Ox 98 04/25/25 17:19 O2 Del Method Room Air 04/25/25 17:19 Course Vital Signs Vital signs: Vital Signs Temperature 97.4 F L 04/25/25 17:19 Pulse Rate 59 L 04/25/25 17:19 Respiratory Rate 18 04/25/25 17:19 Blood Pressure 154/78 H 04/25/25 17:19 Pulse Oximetry 98 04/25/25 17:19 Oxygen Delivery Method Room Air 04/25/25 17:19 Temperature 97.4 F L 04/25/25 17:19 Pulse Rate 59 L 04/25/25 17:19 Respiratory Rate 18 04/25/25 17:19 Blood Pressure 154/78 H 04/25/25 17:19 Pulse Oximetry 98 04/25/25 17:19 Oxygen Delivery Method Room Air 04/25/25 17:19 Medical Decision Making MDM Narrative Medical decision making narrative: Patient is a nontoxic-appearing 84-year-old female who presented to the emergency department today for evaluation concerns for acute on chronic ? Headache and focal area of burning to the top of the left parietal region. In addition she had endorsed some vague complaints of lightheadedness not associate with any orthostatic like changes. Initial examination vital signs overall stable. No concerning neurologic or strokelike findings on exam. Low clinical suspicion for infectious etiology such as meningitis. No evidence of arteritis. She additionally does not appear to be exhibiting any ischemic symptoms and does appear euvolemic on exam. EKG without acute changes and troponin is negative x 1. Labs stable and showed no significant leukocytosis, anemia, thrombocytopenia. Normal ESR. Electrolytes including renal and hepatic function stable. UA is negative for UTI. CT imaging of head without critical findings. Patient did receive supportive measures of Tylenol and on reevaluation she reported some improvement in condition. Findings with the patient including recommendations for supportive care of headache. Advised on follow-up with patient's primary care provider for reevaluation. Discussed signs and symptoms of any worsening condition and when to consider reevaluation by the emergency department. Patient verbalized an understanding of this and is agreeable with the plan to be discharged home. Medical Records Medical records reviewed: Yes I reviewed the patient's medical records Lab Data Lab results reviewed: Yes I reviewed the patient's lab results Labs: Lab Results 04/25/25 04/25/25 Range/Units 17:50 20:02 WBC 6.0 (4.0-11.0) 10^3/uL RBC 4.43 (4.20-5.40) 10^6/uL Hgb 12.9 (12.0-16.0) g/dL Hct 38.9 (36.0-48.0) % MCV 87.8 (81.0-99.0) fL MCH 29.1 (26.7-34.0) pg MCHC 33.2 (29.9-35.2) g/dL RDW 12.7 (11.0-15.0) % Plt Count 165 (150-450) 10^3/uL MPV 9.6 (9.5-13.5) fL Neut % (Auto) 69.7 (43.0-75.0) % Lymph % (Auto) 20.0 L (20.5-60.0) % [place] % (Auto) 7.6 (1.7-12.0) % Eos % (Auto) 1.8 (0.9-7.0) % Baso % (Auto) 0.7 (0.2-2.0) % Neut # (Auto) 4.2 (1.4-6.5) 10^3/uL Lymph # (Auto) 1.2 (1.2-3.8) 10^3/uL [place] # (Auto) 0.5 (0.3-0.8) 10^3/uL Eos # (Auto) 0.1 (0.0-0.7) 10^3/uL Baso # (Auto) 0.0 (0.0-0.1) 10^3/uL Abs Immat Gran (auto) 0.01 (0.00-0.03) 10^3/uL Imm/Tot Granulo (auto) 0.2 (0.0-0.5) % ESR 6 (<=30) mm/hr Sodium 137 (136-145) mmol/L Potassium 4.1 (3.5-5.1) mmol/L Chloride 100 (98-107) mmol/L Carbon Dioxide 31.6 (21.0-32.0) mmol/L Anion Gap 9.5 BUN 18.0 (7.0-18.0) mg/dL Creatinine 1.01 (0.55-1.02) mg/dL Est GFR ( Amer) >60 (>=60 mL/min/1.73m^2) Est GFR (Non-Af Amer) 52 L (>=60 mL/min/1.73m^2) BUN/Creatinine Ratio 17.8 Glucose 130 H (74-106) mg/dL Calcium 9.3 (8.5-10.1) mg/dL Total Bilirubin 0.4 (0.2-1.0) mg/dL AST 20 (15-37) U/L ALT 22 (14-59) U/L Alkaline Phosphatase 57 (46-116) U/L Troponin I High Sens 4.8 (4.0-51.3) pg/mL Total Protein 6.6 (6.4-8.2) g/dL Albumin 3.5 (3.4-5.0) g/dL Globulin 3.1 g/dL Albumin/Globulin Ratio 1.1 Urine Color Lt. yellow (YELLOW) Urine Clarity Clear (CLEAR) Urine pH 6.5 (5.0-9.0) Ur Specific [place] <=1.005 A (1.005-1.025) Urine Protein Negative (NEG/TRACE) mg/dL Urine Glucose (UA) Negative (NEGATIVE) mg/dL Urine Ketones Negative (NEGATIVE) mg/dL Urine Occult Blood Negative (NEGATIVE) Urine Nitrite Negative (NEGATIVE) Urine Bilirubin Negative (NEGATIVE) Urine Urobilinogen 0.2 (0.2-1.0) EU/dL Ur Leukocyte Esterase Negative (NEGATIVE) Urine RBC None seen (0-2) #/HPF Urine WBC 0-2 A (NONE SEEN) #/HPF Ur Squamous Epith Cells Rare (NONE/RARE) #/LPF Urine Crystals None seen (None Seen) #/HPF Urine Bacteria None seen (NONE SEEN) #/HPF Urine Casts None seen (NONE SEEN) #/LPF Urine Mucus None seen (NONE SEEN) Ur Culture Indicated? No Imaging Data CT scan - head: Attestation: I have reviewed the pertinent imaging results. Radiologist's impression: No acute intracranial abnormality ECG Data Attestation: I personally reviewed and interpreted this ECG as follows: (SB with HR 54, no acute/ischemic changes) Discharge Plan Discharge Chief Complaint: Headache Clinical Impression: Headache Patient Disposition: Home, Self-Care Prescriptions / Home Meds: No Action atorvastatin 10 mg tablet 10 mg PO DAILY buspirone 10 mg tablet 10 mg PO DAILY lisinopril 30 mg tablet 10 mg PO DAILY Januvia 50 mg tablet 50 mg PO DAILY gabapentin 300 mg capsule 300 mg PO DAILY ofloxacin 0.3 % drops 5 drp otic (ear) BID 5 Days Qty: 5 0RF famotidine 20 mg tablet 20 mg PO Q12H magnesium 200 mg tablet 200 mg PO DAILY Print Language: Kittitian Instructions: Acute Headache (DC) Additional Instructions: May take Tylenol as needed for any pain. Please up with your primary care provider for reevaluation as discussed. May return to the ER with any new or worsening symptoms/concerns. Referrals: NEAL BRENNER [Primary Care Provider, Internal Medicine] - 1 week
[2025-04-25] MEDS: ACETAMINOPHEN 500 MG TABLET 1000 MG PO (17:56)
[2025-04-25 18:02] LABS: Hematocrit 38.9 % (36.0-48.0); Hemoglobin 12.9 g/dL (12.0-16.0); Immature Granulocytes Abs Auto 0.01 10^3/uL (0.00-0.03); Immature Granulocytes Pct Auto 0.2 % (0.0-0.5); Lymphocytes Absolute Auto 1.2 10^3/uL (1.2-3.8); Mean Corpuscular HGB Conc 33.2 g/dL (29.9-35.2); Mean Corpuscular Hemoglobin 29.1 pg (26.7-34.0); Mean Corpuscular Volume 87.8 fL (81.0-99.0); Platelet Count 165 10^3/uL (150-450); Red Blood Count 4.43 10^6/uL (4.20-5.40); White Blood Count 6.0 10^3/uL (4.0-11.0)
[2025-04-25 18:18] LABS: Alanine Aminotransferase 22 U/L (14-59); Albumin Globulin Ratio 1.1; Albumin Level 3.5 g/dL (3.4-5.0); Alkaline Phosphatase 57 U/L (46-116); Anion Gap 9.5; Aspartate Amino Transferase 20 U/L (15-37); Blood Urea Nitrogen 18.0 mg/dL (7.0-18.0); Calcium 9.3 mg/dL (8.5-10.1); Carbon Dioxide 31.6 mmol/L (21.0-32.0); Chloride 100 mmol/L (98-107); Estimated GFR (African America >60 (>=60 mL/min/1.73m^2); Estimated GFR (Non-African Ame 52 (>=60 mL/min/1.73m^2); Globulin 3.1 g/dL; Glucose 130 mg/dL (74-106); Potassium 4.1 mmol/L (3.5-5.1); Sodium 137 mmol/L (136-145); Total Protein 6.6 g/dL (6.4-8.2)
--- NOTE | 2025-04-25 19:28 | PC.NURSE ---
i walked into this patient's room to find this patient lying supine on the bed awake and alert. i introduced myself to this patient and updated that we are waiting on ct results and for you can give us a urine sample. this patient voices no concerns, needs and shows no signs of distrss
[2025-04-25 20:10] LABS: Glucose Urine UA NEGATIVE (NEGATIVE)
[2025-04-25 20:21] LABS: Cast Seen? NONE SEEN #/LPF (NONE SEEN); Crystals Seen? None Seen #/HPF (None Seen); Urine Culture Indicated NO
--- NOTE | 2025-04-25 21:18 | PC.NURSE ---
i gave this patient verbal and written discharge orders and this patient voices yes to understanding these. at time of discharge this patient voices no concerns, needs and shows no signs of distress
== END 2025-04-25 21:20 | disposition home or self-care (01) ==
PROVIDERS: Nurse Practitioner; Emergency Provider Emergency Medicine; PCP Internal Medicine
DX: R51.9 Headache, unspecified (principal); R42 Dizziness and giddiness; E11.9 Type 2 diabetes mellitus without complications
CPT/HCPCS: 36415; 70450; 80053; 81001; 84484; 85025; 85652; 93005; 99285